=== PATIENT | male | born 1960 | race Caucasian/White ===

== ENCOUNTER 2016-12-14 14:39 | Inpatient (IN) | payer MEDICAID ==
[2016-12-14] VITALS (7 sets, daily range): BP systolic 126–197; BP diastolic 79–107
[~2016-12-14] VITALS: Ht 177.8 cm; Wt 117.5 kg
[~2016-12-14 14:39] MED LIST: CYCL10TA9 PO; HYDR-3812 PO
[2016-12-14] MEDS ORDERED: NS IV 500 ML 500 ML IV ONE (14:41)
[2016-12-14] MEDS ORDERED: ASPIRIN 81 MG CHEW (CHILDREN'S ASA) PO ONE (14:45)
[2016-12-14 14:54] LABS: BASOPHILS % (AUTO) 0 % (0-10); EOSINOPHILS # (AUTO) 0.2 10^3/uL (0.0-0.3); EOSINOPHILS % (AUTO) 2 % (0-10); LYMPHOCYTES # (AUTO) 3.8 X 10^3 (1.0-4.0); LYMPHOCYTES % (AUTO) 31 % (12-44); MEAN CORPUSCULAR HEMOGLOBIN 32 PG (25-34); MEAN CORPUSCULAR HGB CONC 35 G/DL (32-36); MEAN CORPUSCULAR VOLUME 93 FL (80-99); MEAN PLATELET VOLUME 10.6 FL (7.4-10.4); MONOCYTES # (AUTO) 1.8 X 10^3 (0.0-1.0); MONOCYTES % (AUTO) 15 % (0-12); NEUTROPHILS # (AUTO) 6.4 X 10^3 (1.8-7.8); NEUTROPHILS % (AUTO) 53 % (42-75); PLATELET COUNT 265 10^3/uL (130-400); RED BLOOD COUNT 4.72 10^6/uL (4.35-5.85); RED CELL DISTRIBUTION WIDTH 14.6 % (10.0-14.5); WHITE BLOOD COUNT 12.1 10^3/uL (4.3-11.0)
[2016-12-14] MEDS ORDERED: GABA-486 (14:55)
[2016-12-14] MEDS ORDERED: MELO15TA39 (14:55)
[2016-12-14] MEDS ORDERED: HYDR100T27 (14:55)
[2016-12-14] MEDS ORDERED: CARV25TA (14:55)
[2016-12-14] MEDS ORDERED: AMLO10TA2 (14:55)
[2016-12-14] MEDS ORDERED: PRD20T PO ×2 (14:55→18:35)
[2016-12-14 15:04] LABS: INR 0.9 (0.8-1.4); PROTHROMBIN TIME PATIENT 12.1 SEC (12.2-14.7)
[2016-12-14 15:14] LABS: ALANINE AMINOTRANSFERASE 100 U/L (0-55); ALBUMIN 4.3 GM/DL (3.2-4.5); AMYLASE 53 U/L (25-125); ANION GAP 10 MMOL/L (5-14); ASPARTATE AMINO TRANSFERASE 51 U/L (5-34); BILIRUBIN,TOTAL 0.5 MG/DL (0.1-1.0); BLOOD UREA NITROGEN 20 MG/DL (7-18); BUN/CREATININE RATIO 13; CALCIUM 9.5 MG/DL (8.5-10.1); CARBON DIOXIDE 25 MMOL/L (21-32); CHLORIDE 102 MMOL/L (98-107); GFR ESTIMATED 48; GLUCOSE 115 MG/DL (70-105); LIPASE 52 U/L (8-78); MAGNESIUM 2.6 MG/DL (1.8-2.4); POTASSIUM 4.1 MMOL/L (3.6-5.0); SODIUM 137 MMOL/L (135-145); TOTAL PROTEIN 7.4 GM/DL (6.4-8.2)
--- NOTE | 2016-12-14 15:20 | Diagnostic Imaging Report ---
INDICATION: Lethargy. COMPARISON: None. FINDINGS: Single upright portable view of the chest is obtained. Heart size is normal. The pulmonary vessels appear unremarkable. There are some surgical clips projecting over the right hilum. There is no pneumothorax, pleural fluid, or evidence of failure. There is some minimal atelectasis or scarring in the left midlung. The lungs are otherwise clear. IMPRESSION: No radiographic evidence of an acute cardiopulmonary abnormality. Dictated by: Dictated on workstation # [id number]
[2016-12-14 15:25] LABS: MYOGLOBIN SERUM 44.3 NG/ML (10.0-92.0)
--- NOTE | 2016-12-14 15:37 | ED Cardiac General ---
History of Present Illness General Chief Complaint: Cardiac/General Problems Stated Complaint: LATHARGIC Nursing Triage Note: Pt to ED from rehab. Pt was doing workout and became increasingly lethargic and reports he felt very dizzy. Pt has hx 2 strokes. Source: patient Exam Limitations: no limitations History of Present Illness Time seen by provider: 14:38 Initial Comments Here from the physical therapy department with increasingly weak and dizzy and fast heart rate. Patient is in outpatient rehabilitation for stroke previously. Comes today with heart rate in the one teens to 140s and atrial fibrillation. He reports that his had atrial fibrillation. He is not on anticoagulation. Has vague chest discomfort but denies pain. Reports dizziness and weakness but no vomiting or diaphoresis. Timing/Duration: 1 hour Severity: moderate Location: central Activities at Onset: activity Modifying Factors: worse with exercise, improves with oxygen, improves with rest NTG SL EASTERN PHILOSOPHY PROFESSOR: No ASA po EASTERN PHILOSOPHY PROFESSOR: No Associated Systoms: Chest Pain, No Diaphoresis, No Fever/Chills, No Nausea/ Vomiting, Shortness of Air, Weakness Allergies and Home Medications Allergies Coded Allergies: No Known Drug Allergies (Unverified , 02/25/15) Home Medications Amlodipine Besylate Unknown Strength Tablet, Unknown Dose, #90 (Reported) Carvedilol Unknown Strength Tablet, Unknown Dose, #360 (Reported) Gabapentin Unknown Strength Capsule, Unknown Dose, #180 (Reported) Hydralazine HCl Unknown Strength Tablet, Unknown Dose, #270 (Reported) Meloxicam Unknown Strength Tablet, Unknown Dose, #14 (Reported) Prednisone 20 Mg Tab, 20 MG PO BID, #14 (Reported) Review of Systems Constitutional: see HPI, No chills, No fever EENTM: No Symptoms Reported Respiratory: See HPI, Denies Cough, Denies Orthopnea Cardiovascular: See HPI, Chest Pain, Irregular Heart Rate, Lightheadedness, Palpitations Gastrointestinal: No Symptoms Reported Genitourinary: No Symptoms Reported Musculoskeletal: no symptoms reported Skin: no symptoms reported Psychiatric/Neurological: See HPI, Denies Headache, Weakness Endocrine: No Symptoms Reported All Other Systems Reviewed Negative Unless Noted: Yes Past Bkgenct-Ozddtl-Cviugl Hx Patient Social History Alcohol Use: Rarely Uses Recreational Drug Use: No Smoking Status: Never a Smoker Recent Foreign Travel: No Contact w/Someone Who Travel: No Recent Infectious Disease Expo: No Recent Hopitalizations: No Seasonal Allergies Seasonal Allergies: No Surgeries HX Surgeries: Yes Surgeries: Orthopedic Respiratory Hx Respiratory Disorders: No Cardiovascular Hx Cardiac Disorders: Yes Cardiac Disorders: Hypertension Neurological Hx Neurological Disorders: Yes Neurological Disorders: Stroke Genitourinary Hx Genitourinary Disorders: No Gastrointestinal Hx Gastrointestinal Disorders: No Musculoskeletal Hx Musculoskeletal Disorders: Yes Musculoskeletal Disorders: Chronic Back Pain Endocrine Hx Endocrine Disorders: No HEENT HX ENT Disorders: No Cancer Hx Cancer: No Psychosocial Hx Psychiatric Problems: No Integumentary HX Skin/Integumentary Disorder: No Blood Transfusions Hx Blood Disorders: No Adverse Reaction to a Blood Tr: No Reviewed Nursing Assessment Reviewed/Agree w Nursing PMH: Yes Family Medical History Significant Family History: No Pertinent Family Hx Physical Exam Vital Signs Vital Sign - Last 12Hours 12/14/16 14:44 Temp 98.3 Pulse 120 Resp 18 B/P (MAP) 150/104 Pulse Ox 95 O2 Delivery Room Air Capillary Refill : Less Than 3 Seconds General Appearance: No Apparent Distress, WD/WN HEENT: PERRL/EOMI, Pharynx Normal Neck: Non Tender, Supple Respiratory: Lungs Clear, No Respiratory Distress Cardiovascular: Irregularly Irregular, Tachycardia Gastrointestinal: Non Tender, Soft Extremity: Normal Range of Motion, Non Tender Neurologic/Psychiatric: Alert, Oriented x3 Skin: Normal Color, Warm/Dry Progress/Results/Core Measures Results/Orders Lab Results Laboratory Tests Test 12/14/16 14:42 Range/Units White Blood Count 12.1 H 4.3-11.0 10^3/uL Red Blood Count 4.72 4.35-5.85 10^6/uL Hemoglobin 15.3 13.3-17.7 G/DL Hematocrit 44 40-54 % Mean Corpuscular Volume 93 80-99 FL Mean Corpuscular Hemoglobin 32 25-34 PG Mean Corpuscular Hemoglobin Concent 35 32-36 G/DL Red Cell Distribution Width 14.6 H 10.0-14.5 % Platelet Count 265 130-400 10^3/uL Mean Platelet Volume 10.6 H 7.4-10.4 FL Neutrophils (%) (Auto) 53 42-75 % Lymphocytes (%) (Auto) 31 12-44 % Monocytes (%) (Auto) 15 H 0-12 % Eosinophils (%) (Auto) 2 0-10 % Basophils (%) (Auto) 0 0-10 % Neutrophils # (Auto) 6.4 1.8-7.8 X 10^3 Lymphocytes # (Auto) 3.8 1.0-4.0 X 10^3 Monocytes # (Auto) 1.8 H 0.0-1.0 X 10^3 Eosinophils # (Auto) 0.2 0.0-0.3 10^3/uL Basophils # (Auto) 0.0 0.0-0.1 10^3/uL Prothrombin Time 12.1 L 12.2-14.7 SEC INR Comment 0.9 0.8-1.4 Activated Partial Thromboplast Time 30 24-35 SEC Sodium Level 137 135-145 MMOL/L Potassium Level 4.1 3.6-5.0 MMOL/L Chloride Level 102 98-107 MMOL/L Carbon Dioxide Level 25 21-32 MMOL/L Anion Gap 10 5-14 MMOL/L Blood Urea Nitrogen 20 H 7-18 MG/DL Creatinine 1.50 H 0.60-1.30 MG/DL Estimat Glomerular Filtration Rate 48 BUN/Creatinine Ratio 13 Glucose Level 115 H 70-105 MG/DL Calcium Level 9.5 8.5-10.1 MG/DL Magnesium Level 2.6 H 1.8-2.4 MG/DL Total Bilirubin 0.5 0.1-1.0 MG/DL Aspartate Amino Transf (AST/SGOT) 51 H 5-34 U/L Alanine Aminotransferase (ALT/SGPT) 100 H 0-55 U/L Alkaline Phosphatase 35 L 40-136 U/L Myoglobin 44.3 10.0-92.0 NG/ML Troponin I < 0.30 <0.30 NG/ML Total Protein 7.4 6.4-8.2 GM/DL Albumin 4.3 3.2-4.5 GM/DL Amylase Level 53 25-125 U/L Lipase 52 8-78 U/L My Orders Orders - GIULIA POST MD Cbc With Automated Diff (12/14/16 14:41) Magnesium (12/14/16 14:41) Chest 1 View, Ap/Pa Only (12/14/16 14:41) Ekg Tracing (12/14/16 14:41) Cardiac Profile 1 (12/14/16 14:41) Comprehensive Metabolic Panel (12/14/16 14:41) Myoglobin Serum (12/14/16 14:41) Protime With Inr (12/14/16 14:41) Partial Thromboplastin Time (12/14/16 14:41) O2 (12/14/16 14:41) Monitor-Rhythm Ecg Trace Only (12/14/16 14:41) Lipid Panel (12/15/16 06:00) Aspirin Chewable Tablet (Baby Aspirin Ch (12/14/16 14:45) Saline Lock/Iv-Start (12/14/16 14:41) Lipase (12/14/16 14:41) Amylase (12/14/16 14:41) Ns Iv 500 Ml (Sodium Chloride 0.9%) (12/14/16 14:41) Enoxaparin Injection (Lovenox Injection) (12/14/16 15:45) Heparin Drip 21077 Unit/500ml (Heparin (12/14/16 15:49) Heparin (Bolus Per Protocol) (Heparin (B (12/14/16 15:49) Sodium Chloride (Ad... W/Diltiazem Drip (12/14/16 16:00) Diltiazem Injection (Cardizem Injection) (12/14/16 16:00) Medications Given in ED Current Medications Medications Dose Ordered Sig/Mauro Route Start Time Stop Time Status Last Admin Dose Admin Aspirin 324 mg ONCE ONCE PO 12/14/16 14:45 12/14/16 14:46 DC 12/14/16 15:07 324 MG Sodium Chloride 500 ml @ 0 mls/hr Q0M ONCE IV 12/14/16 14:41 12/14/16 14:42 DC 12/14/16 15:08 999 MLS/HR Vital Signs/I&O Vital Sign - Last 12Hours 12/14/16 12/14/16 14:44 14:48 Temp 98.3 Pulse 120 88 111 140 Resp 18 B/P (MAP) 150/104 Pulse Ox 95 O2 Delivery Room Air Blood Pressure Mean: 119 Progress Note : Progress Note Seen and evaluated. IV, labs, EKG and chest x-ray. Normal saline 1 L bolus. We will try fluids before Cardizem to see if that will help out heart rate. 1550: Heart rate not improved. Cardizem drip and heparin bolus initiated. To be admitted. Case discussed with Dr. Pedraza who agrees to admission. Initially we had considered Lovenox for anticoagulation the patient's creatinine is 1.5. Dr. Onofre. For admission on-call for [facility]. Case discussed with Dr. Onofre and she accepts patient for admission, inpatient status. Patient agrees to plan. ECG Initial ECG Impression Date: Dec 14, 2016 Initial ECG Impression Time: 14:42 Initial ECG Rate: 126 Initial ECG Rhythm: A Fib/Flutter Initial ECG Impression: Atrial Fibrillation w/RVR Comment Atrial fibrillation with rapid ventricular response. No evidence of ST elevation [place]. No previous available for comparison. Normal axis. Interpreted by me. Diagnostic Imaging Diagonstic Imaging: Xray Plain Films/CT/US/NM/MRI: chest Comments NAME: JAYSHREE GORDON MED REC#: [id number] PT STATUS: REG ER : 1960 PHYSICIAN: GIULIA POST MD ADMIT DATE: 12/14/16/ER Signed Date of Exam: 12/14/16 CHEST 1 VIEW, AP/PA ONLY INDICATION: Lethargy. COMPARISON: None. FINDINGS: Single upright portable view of the chest is obtained. Heart size is normal. The pulmonary vessels appear unremarkable. There are some surgical clips projecting over the right hilum. There is no pneumothorax, pleural fluid, or evidence of failure. There is some minimal atelectasis or scarring in the left midlung. The lungs are otherwise clear. IMPRESSION: No radiographic evidence of an acute cardiopulmonary abnormality. Dictated by: Dictated on workstation # [id number] Dict: 12/14/16 1517 Trans: 12/14/16 1528 Interpreted by: GWENDOLYN KRAFT DO Electronically signed by: GWENDOLYN KRAFT DO 12/14/16 1528 Departure Communication Time/Spoke to Admitting Phy: 15:50 Time/Spoke to Consulting Physi: 15:30 Impression Impression: Primary Impression: Atrial fibrillation with rapid ventricular response Additional Impression: Chest discomfort Disposition: ADMITTED INPATIENT Condition: Stable Decision to Admit Reason: Admit from ER (General) Decision to Admit/Date: Dec 14, 2016 Time/Decision to Admit Time: 15:50 Departure-Patient Inst. Referrals: MANUEL STARK DO (PCP) Primary Care Physician JOSHUA LINO (Family) Primary Care Physician GIULIA POST MD Dec 14, 2016 15:37
[2016-12-14] MEDS ORDERED: ENOXAPARIN 100 MG/1 ML (LOVENOX) SYR SC ONE (15:45)
[2016-12-14] MEDS ORDERED: HEParin 1000 UNIT/ML (10ML VIAL) FOR BOLUS IV ONE (15:49)
[2016-12-14] MEDS ORDERED: HEParin DRIP 25000 UNIT/500ML 500 ML IV ONE (15:49)
[2016-12-14] MEDS ORDERED: DILTIAZEM 25 MG/5 ML INJ (CARDIZEM) VIAL IVP ONE (16:00)
[2016-12-14] MEDS ORDERED: DILTIAZEM DRIP 100 MG in SODIUM CHLORIDE (ADD-VANTAGE) 100 ML IV SCH (16:00)
[2016-12-14] MEDS ORDERED: NITROGLYCERIN SUBLINGUAL 0.4 MG TAB (NITROSTAT) SL PRN (17:30)
[2016-12-14] MEDS ORDERED: CATHETER FLUSH 10 ML SYR IV PRN (17:30)
[2016-12-14] MEDS ORDERED: morphine INJ 4 MG/ML 1 ML (VIAL/SYRINGE) IV PRN (17:30)
[2016-12-14] MEDS: DILTIAZEM DRIP 100 MG/NS 100 ML IV SCH ×2 (17:31)
[2016-12-14] MEDS ORDERED: HEParin DRIP 25000 UNIT/500ML 500 ML IV SCH (17:33)
[2016-12-14] MEDS ORDERED: HEParin 1000 UNIT/ML (10ML VIAL) FOR BOLUS IV PRN (17:45)
[2016-12-14] MEDS: NS IV 1000 ML 1,000 ML IV SCH (17:50)
[2016-12-14] MEDS ORDERED: CARV25TA PO (18:35)
[2016-12-14] MEDS ORDERED: AMLO10TA2 PO (18:35)
[2016-12-14] MEDS ORDERED: ASPI-983 PO (18:35)
[2016-12-14] MEDS ORDERED: MELO15TA39 PO (18:35)
[2016-12-14] MEDS ORDERED: GABA-486 PO (18:35)
[2016-12-14] MEDS ORDERED: BACL10TA PO (18:35)
[2016-12-14] MEDS ORDERED: HYDR100T27 PO (18:35)
[2016-12-14] MEDS ORDERED: MELOXICAM 7.5 MG (MOBIC) TABLET PO SCH (21:27)
[2016-12-14] MEDS: BACLOFEN 10 MG (LIORESAL) TAB PO PRN (21:41)
[2016-12-15] VITALS (16 sets, daily range): BP systolic 122–180; BP diastolic 84–116
[2016-12-15] MEDS ORDERED: HYDROcodone/APAP 5 MG/325 MG (LORTAB) TAB ONE (00:38)
[2016-12-15] MEDS ORDERED: LABETALOL HCL 20 MG/4 ML VIAL ONE (00:38)
[2016-12-15] MEDS ORDERED: LABETALOL HCL 20 MG/4 ML VIAL IV PRN (01:00)
[2016-12-15] MEDS ORDERED: HYDROcodone/APAP 5 MG/325 MG (LORTAB) TAB PO PRN (01:00)
[2016-12-15] MEDS: DILTIAZEM DRIP 100 MG/NS 100 ML IV SCH ×4 (02:21→10:39)
[2016-12-15] MEDS ORDERED: morphine INJ 4 MG/ML 1 ML (VIAL/SYRINGE) IV PRN (02:45)
[2016-12-15 02:59] LABS: BASOPHILS % (AUTO) 0 % (0-10); EOSINOPHILS # (AUTO) 0.3 10^3/uL (0.0-0.3); EOSINOPHILS % (AUTO) 2 % (0-10); LYMPHOCYTES # (AUTO) 3.5 X 10^3 (1.0-4.0); LYMPHOCYTES % (AUTO) 24 % (12-44); MEAN CORPUSCULAR HEMOGLOBIN 33 PG (25-34); MEAN CORPUSCULAR HGB CONC 35 G/DL (32-36); MEAN CORPUSCULAR VOLUME 92 FL (80-99); MEAN PLATELET VOLUME 10.6 FL (7.4-10.4); MONOCYTES # (AUTO) 1.9 X 10^3 (0.0-1.0); MONOCYTES % (AUTO) 13 % (0-12); NEUTROPHILS # (AUTO) 9.1 X 10^3 (1.8-7.8); NEUTROPHILS % (AUTO) 62 % (42-75); PLATELET COUNT 263 10^3/uL (130-400); RED BLOOD COUNT 5.02 10^6/uL (4.35-5.85); RED CELL DISTRIBUTION WIDTH 14.7 % (10.0-14.5); WHITE BLOOD COUNT 14.9 10^3/uL (4.3-11.0)
[2016-12-15 03:23] LABS: ALANINE AMINOTRANSFERASE 106 U/L (0-55); ALBUMIN 4.3 GM/DL (3.2-4.5); ANION GAP 14 MMOL/L (5-14); ASPARTATE AMINO TRANSFERASE 47 U/L (5-34); BILIRUBIN,TOTAL 0.6 MG/DL (0.1-1.0); BLOOD UREA NITROGEN 16 MG/DL (7-18); BUN/CREATININE RATIO 15; CALCIUM 9.3 MG/DL (8.5-10.1); CARBON DIOXIDE 19 MMOL/L (21-32); CHLORIDE 106 MMOL/L (98-107); CHOLESTEROL 203 MG/DL (< 200); DIRECT LDL 129 MG/DL (1-129); GFR ESTIMATED > 60; GLUCOSE 104 MG/DL (70-105); MAGNESIUM 2.3 MG/DL (1.8-2.4); POTASSIUM 3.8 MMOL/L (3.6-5.0); SODIUM 139 MMOL/L (135-145); TOTAL PROTEIN 7.5 GM/DL (6.4-8.2); TRIGLYCERIDES 295 MG/DL (<150); VLDL CHOLESTEROL 59 MG/DL (5-40)
[2016-12-15 04:08] LABS: BAND NEUTROPHILS 0 %; BASOPHILS % (MANUAL) 0 %; EOSINOPHILS % (MANUAL) 1 %; LYMPHOCYTES % (MANUAL) 16 %; NEUTROPHILS % (MANUAL) 66 %; REACTIVE LYMPHOCYTES 6 %
[2016-12-15] MEDS: NS IV 1000 ML 1,000 ML IV SCH ×2 (05:07→13:39)
[2016-12-15] MEDS ORDERED: POTASSIUM CL 10MEQ/50ML IVPB 50 ML IV SCH (06:00)
[2016-12-15] MEDS ORDERED: MAGNESIUM 1 GM/100 ML IVPB 100 ML IV SCH (06:00)
[2016-12-15] MEDS ORDERED: KCL 20 MEQ TAB (K-DUR) PO SCH (06:00)
--- NOTE | 2016-12-15 07:38 | Pulmonary Consultation ---
History of Present Illness History of Present Illness Date of Consultation 12/15/16 07:29 Time Seen by Provider: 07:29 Date of Admission History of Present Illness 56yo with hx of CVA presented to ED from PT department secondary to worsening weakness, CP, dizziness, and palpitations. IN ED she was found to have Afib RVR with HR 140's. PT is currently on a cardizem gtt in ICU and doing better. Allergies and Home Medications Allergies Coded Allergies: No Known Drug Allergies (Unverified , 02/25/15) Home Medications Amlodipine Besylate 10 Mg Tablet, 10 MG PO DAILY, (Reported) Aspirin 81 Mg Tablet.dr, 81 MG PO DAILY, (Reported) Baclofen 10 Mg Tablet, 20 MG PO TID PRN for MUSCLE SPASMS, (Reported) Carvedilol 25 Mg Tablet, 50 MG PO BID, (Reported) Gabapentin 100 Mg Capsule, 200 MG PO TID, (Reported) Hydralazine HCl 100 Mg Tablet, 100 MG PO TID PRN for HYPERTENSION, (Reported) Meloxicam 15 Mg Tablet, 15 MG PO HS, (Reported) Prednisone 20 Mg Tab, 20 MG PO BIDAC, (Reported) WITH BREAKFAST AND LUNCH Past Zpsbufk-Amvaoe-Klsfrn Hx Patient Social History Alcohol Use: Occasionally Uses Recreational Drug Use: No Smoking Status: Never a Smoker Recent Foreign Travel: No Contact w/Someone Who Travel: No Recent Infectious Disease Expo: No Recent Hopitalizations: No Physical Abuse Screen: No Sexual Abuse: No Seasonal Allergies Seasonal Allergies: No Surgeries HX Surgeries: Yes Surgeries: Orthopedic Respiratory Hx Respiratory Disorders: No Cardiovascular Hx Cardiac Disorders: Yes Cardiac Disorders: Hypertension Neurological Hx Neurological Disorders: Yes Neurological Disorders: Stroke Genitourinary Hx Genitourinary Disorders: No Gastrointestinal Hx Gastrointestinal Disorders: No Musculoskeletal Hx Musculoskeletal Disorders: Yes Musculoskeletal Disorders: Chronic Back Pain Endocrine Hx Endocrine Disorders: No HEENT HX ENT Disorders: No Cancer Hx Cancer: No Psychosocial Hx Psychiatric Problems: No Integumentary HX Skin/Integumentary Disorder: No Blood Transfusions Hx Blood Disorders: No Adverse Reaction to a Blood Tr: No Reviewed Nursing Assessment Reviewed/Agree w Nursing PMH: Yes Family Medical History Significant Family History: No Pertinent Family Hx Review of Systems Time Seen by Provider: 07:49 Constitutional: Malaise, Sweats, Weakness, No: Chills, Fever, Other Eyes: No: Conjunctivae inflammation, Eyelid inflammation, Other, Pain, Redness , Vision change ENT: No: Ear discharge, Ear pain, Mouth pain, Mouth swelling, Nose congestion, Nose discharge, Nose pain, Other, Throat pain, Throat swelling Respiratory: Cough, Dry, SOB with excertion, Shortness of breath Cardiovascular: Chest Pain, Lt Headedness, Palpitations, No: Orthopnea, Paroxysmal Noc. Dyspnea Gastrointestinal: No: Abdominal Pain, Constipation, Diarrhea, Hematochezia, Melena, Nausea, Other, Vomiting Neurological: Weakness Exam Exam Vital Signs Date Time Temp Pulse Resp B/P (MAP) Pulse Ox O2 Delivery O2 Flow Rate FiO2 12/15/16 06:00 64 18 144/116 97 Room Air 12/15/16 05:08 97.1 Room Air 12/15/16 05:00 75 8 140/101 98 Room Air 12/15/16 04:00 66 12 138/116 95 Room Air 12/15/16 04:00 97 Room Air 12/15/16 03:00 68 10 139/105 96 Room Air 12/15/16 02:21 88 12/15/16 02:00 84 10 157/106 96 Room Air 12/15/16 01:00 66 12/15/16 01:00 63 13 134/107 97 Room Air 12/15/16 00:00 97 Room Air 12/15/16 00:00 96.7 Room Air 12/15/16 00:00 89 19 142/107 96 Room Air 12/14/16 23:00 73 9 197/107 95 Room Air 12/14/16 22:00 62 14 134/102 97 Room Air 12/14/16 21:36 97 Room Air 12/14/16 21:00 70 14 152/100 95 Room Air 12/14/16 20:28 97 Room Air 12/14/16 20:00 96.0 52 10 134/95 97 Room Air 12/14/16 19:00 68 12/14/16 19:00 68 16 133/103 Room Air 12/14/16 18:11 98 Room Air 12/14/16 18:00 68 14 126/79 96 Room Air 12/14/16 17:10 96.9 73 16 140/103 98 Room Air 12/14/16 16:52 98.3 80 18 95 Room Air 12/14/16 16:23 76 127/84 12/14/16 14:50 95 Room Air 12/14/16 14:48 88 111 140 12/14/16 14:44 98.3 120 18 150/104 95 Room Air I & O 12/15/16 07:00 Intake Total 2200 ml Output Total 2750 ml Balance -550 ml General Appearance: No Apparent Distress, WD/WN HEENT: PERRL/EOMI, Pharynx Normal Neck: Non Tender, Supple Respiratory: Lungs Clear, No Respiratory Distress Cardiovascular: Irregularly Irregular, Tachycardia Capillary Refill: Less Than 3 Seconds Gastrointestinal: non tender, soft, no organomegaly, no pulsatile mass Extremity: Normal Range of Motion, Non Tender Neurologic/Psychiatric: Alert, Oriented x3 Skin: Normal Color, Warm/Dry Results Lab Laboratory Tests 12/14/16 14:42 12/15/16 02:50 Assessment/Plan Assessment/Plan Afib RVR on cardizem gtt -Cardiology following -Troponins are negative Anxiety/ diaphoresis -monitor -Check UDS Leukocytosis -check cultures and UA -Start Zosyn Elevated liver enzymes -hep panel -D/C Lortab -monitor -check RUQ US Mild metabolic acidosis -check LA and russo cultures Chronic leg pain/sciatica -Start Motrin PRN CXR and labs reviewed 255 Clinical Quality Measures AMI/AHF: ASA po Prior to arrival: No DVT/VTE Risk/Contraindication: Risk Factor Score Per Nursin RFS Level Per Nursing on Admit: 3=High HONORIO ALBERT DO Dec 15, 2016 07:38
[2016-12-15] MEDS ORDERED: PIPERACILLIN SODIUM/TAZOBACTAM 4.5 GM in NS (IVPB) 100 ML IV SCH ×2 (08:00→14:00)
[2016-12-15] MEDS: IBUPROFEN TABLET 200 MG TAB PO PRN ×2 (08:20→14:51)
[2016-12-15] MEDS: GABAPENTIN 100 MG (NEURONTIN) CAP PO SCH ×2 (08:21→13:21)
[2016-12-15] MEDS ORDERED: ASPIRIN E.C. 325 MG (ECOTRIN) TABLET PO SCH (09:00)
[2016-12-15] MEDS ORDERED: hydrALAZINE (APRESOLINE) 25 MG TAB PO PRN (09:15)
[2016-12-15] MEDS ORDERED: amLODIPine 10 MG (NORVASC) TAB ONE (09:15)
--- NOTE | 2016-12-15 09:30 | Diagnostic Imaging Report ---
EXAMINATION: Ultrasound of the liver. INDICATION: Elevated liver enzymes. FINDINGS: The pancreas is largely obscured. The liver is hyperechoic and dense suggestive of fatty infiltration. It is 19 CM craniocaudally, slightly enlarged. There is no gallstones or evidence of cholecystitis. The CBD is 7 mm in caliber, slightly dilated. The right kidney is 10.9 CM in length with no hydronephrosis or focal lesion. No fluid collection is noted. Sonographic Paz sign is negative. IMPRESSION: Slightly enlarged liver with liver echogenicity suggestive of underlying fatty infiltration or hepatitis. Dictated by: Dictated on workstation # [id number]
[2016-12-15] MEDS ORDERED: CARVEDILOL 12.5 MG (COREG) TABLET ONE (09:48)
[2016-12-15] MEDS ORDERED: APIXABAN 5 MG (ELIQUIS) TABLET PO SCH (10:00)
--- NOTE | 2016-12-15 10:49 | History & Physical-Hospitalist ---
HPI History of Present Illness: HPI/Chief Complaint CC: Palpitations with new onset AF w/RVR with pneumonia HPI: This is a 56-year-old white male clinic patient of [facility] that presents to the emergency room with palpitations of weakness following physical therapy. He was found to have new onset atrial fibrillation with rapid ventricular response and infiltrate on chest x-ray. He denies any pain currently and is a nonsmoker. He is currently on Cardizem drip anticoagulation and cardiology has been consulted. Source: patient Exam Limitations: no limitations Date Seen 12/15/16 Time Seen by Provider: 09:45 Attending Physician Estella Onofre DO PCP Kelsey Parmar DO Referring Physician Date of Admission Dec 14, 2016 at 15:50 Home Medications & Allergies Home Medications Reviewed patient Home Medication Reconciliation Form Allergies Allergies Coded Allergies No Known Drug Allergies (Xcfqkkolpw15/5/15) Past Ffvapoz-Mozuxv-Shzbol Hx Patient Social History Marrital Status: single Employed/Student: unemployed Alcohol Use: Occasionally Uses Recreational Drug Use: No Smoking Status: Never a Smoker Physical Abuse Screen: No Sexual Abuse: No Recent Foreign Travel: No Contact w/other who traveled: No Recent Hopitalizations: No Recent Infectious Disease Expo: No Seasonal Allergies Seasonal Allergies: No Surgeries HX Surgeries: Yes Surgeries: Orthopedic Respiratory Hx Respiratory Disorders: No Cardiovascular Hx Cardiovascular Disorders: Yes Cardiac Disorders: Hypertension Neurological Hx Neurological Disorders: Yes Neurological Disorders: Stroke Genitourinary Hx Genitourinary Disorders: No Gastrointestinal Hx Gastrointestinal Disorders: No Musculoskeletal Hx Musculoskeletal Disorders: Yes Musculoskeletal Disorders: Chronic Back Pain Endocrine Hx Endocrine Disorders: No HEENT HX ENT Disorders: No Cancer Hx Cancer: No Psychosocial Hx Psychiatric Problems: No Integumentary HX Skin/Integumentary Disorder: No Blood Transfusions Hx Blood Disorders: No Adverse Reaction to a Blood Tr: No Reviewed Nursing Assessment Reviewed/Agree w Nursing PMH: Yes Family Medical History Significant Family History: No Pertinent Family Hx Review of Systems Constitutional: see HPI EENTM: no symptoms reported Respiratory: no symptoms reported Cardiovascular: palpitations Gastrointestinal: no symptoms reported Genitourinary: no symptoms reported Musculoskeletal: no symptoms reported Skin: no symptoms reported Psychiatric/Neurological: No Symptoms Reported All Other Systems Reviewed Negative Unless Noted: Yes Physical Exam Physical Exam Vital Signs Vital Sign - Last 12Hours 12/14/16 14:44 Temp 98.3 Pulse 120 Resp 18 B/P (MAP) 150/104 Pulse Ox 95 O2 Delivery Room Air Capillary Refill : Less Than 3 Seconds General Appearance: No Apparent Distress, WD/WN, Chronically ill, Obese Eyes: Bilateral Eye Normal Inspection, Bilateral Eye PERRL HEENT: PERRL/EOMI, Normal ENT Inspection, Pharynx Normal Neck: Full Range of Motion, Normal Inspection, Non Tender, Supple, Carotid Bruit Respiratory: Chest Non Tender, Lungs Clear, Normal Breath Sounds, No Accessory Muscle Use, No Respiratory Distress Cardiovascular: No Edema, No Gallop, No JVD, No Murmur, Normal Peripheral Pulses, Irregularly Irregular Gastrointestinal: Normal Bowel Sounds, No Organomegaly, No Pulsatile Mass, Non Tender, Soft Back: Normal Inspection, No CVA Tenderness, No Vertebral Tenderness Extremity: Normal Capillary Refill, Normal Inspection, Normal Range of Motion, Non Tender, No Calf Tenderness, No Pedal Edema Neurologic/Psychiatric: Alert, Oriented x3, No Motor/Sensory Deficits, Normal Mood/Affect Skin: Normal Color, Warm/Dry Lymphatic: No Adenopathy Results Results/Procedures Lab Laboratory Tests 12/14/16 14:42 12/15/16 02:50 Assessment/Plan Admission Diagnosis Assessment: New onset atrial fibrillation with rapid ventricular response Pneumonia on chest x-ray placed on protocol Hypertension Stroke Assessment and Plan Plan: Cardiology consultation appreciated Kamini knutson Cardiac workup Reconcile all home meds Clinical Quality Measures AMI/AHF: ASA po Prior to arrival: No DVT/VTE Risk/Contraindication: Risk Factor Score Per Nursin RFS Level Per Nursing on Admit: 3=High ESTELLA ONOFRE DO Dec 15, 2016 10:49
[2016-12-15 11:21] LABS: BILIRUBIN,URINE NEGATIVE (NEGATIVE); KETONES,URINE NEGATIVE (NEGATIVE); LEUKOCYTE ESTERASE ,URINE NEGATIVE (NEGATIVE); NITRITE,URINE NEGATIVE (NEGATIVE); PH,URINE 7 (5-9); PROTEIN,URINE 2+ (NEGATIVE); UROBILINOGEN,URINE NORMAL (NORMAL)
--- NOTE | 2016-12-15 11:36 | Diagnostic Imaging Report ---
INDICATION: Cardiac dysrhythmia Portable upright view of the chest is obtained with comparison made to study of 12/14/2016. Overall heart size is within normal limits. Pulmonary vascularity is at the upper limits of normal. There is no evidence of pneumothorax or consolidation. Linear density left midlung may be due to atelectasis or scarring. Rectangular formation of what appear to be lu now project to the left of midline in the mid chest. This may be on the patient's surface. IMPRESSION: Pulmonary vascularity is at the upper limits of normal with linear atelectasis and/or scarring in the left midlung. Dictated by: Dictated on workstation # [id number]
--- NOTE | 2016-12-15 13:10 | Consultation-Cardiology ---
HPI-Cardiology Cardiology Consultation: Date of Consultation 12/15/16 Date of Admission Attending Physician Estella Onofre DO Admitting Physician Kelsey Parmar DO Consulting Physician Edwin PEDRAZA MD HPI: Time Seen by Provider: 09:30 Chief Complaint: Palpitations This is a 56-year-old gentleman who has previous history of stroke. He presents with episode of dizziness and was found to be in atrial fibrillation with rapid ventricular rate. He is not on anticoagulation. The patient denies any significant chest pain. He denies any significant orthopnea, PND. Patient has history of hypertension. Review of Systems-Cardiology Review of Systems Constitutional: No As described under HPI, No no symptoms reported, No chills, No fever, No lightheadedness, No malaise, No tiredness, No weight loss, No weight gain, No other Eyes: No As described under HPI, No no symptoms reported, No blindness, No blurred vision, No contact lenses, No drainage, No decreased acuity, No foreign body sensation, No glasses, No inflammation, No pain, No photophobia, No previous injury, No shadows, No tunnel vision, No other, No vision change Ears/Nose/Throat: No As described under HPI, No no symptoms reported, No chronic hearing loss, No epistaxis, No ear discharge, No ear pain, No loose teeth, No mouth pain, No mouth swelling, No nasal drainage, No nose pain, No recent hearing loss, No throat pain, No throat swelling, No ulcerations, No other Respiratory: No no symptoms reported, No As described under HPI, No cough, No orthopnea, No shortness of breath, No SOB with excertion, No SOB at rest, No stridor, No wheezing, No other Cardiovascular: irregular heart rate, palpitations Gastrointestinal: No no symptoms reported, No As described under HPI, No abdomen distended, No abdominal pain, No blood streaked bowels, No constipation , No diarrhea, No difficulty swallowing, No nausea, No poor appetite, No poor fluid intake, No rectal bleeding, No vomiting, No other, No nausea/vomiting/ diarrhea, No stool coloration changes Genitourinary: No no symptoms reported, No As described under HPI, No burning, No dysuria, No discharge, No frequency, No flank pain, No hematuria, No incontinence, No pain, No urgency, No other, No urine frequency changes, No urine coloration changes Musculoskeletal: No no symptoms reported, No As describe under HPI, No back pain, No gout, No joint pain, No joint swelling, No muscle pain, No muscle stiffness, No neck pain, No other Skin: No no symptoms reported, No As described under HPI, No change in color, No change in hair/nails, No dryness, No lesions, No lumps, No rash, No other, No skin related problems, No ulcerations, No rash on exposed areas, No ulcerations on exposed areas All Other Systems Reviewed Negative Unless Noted: Yes [id number] Hx Patient Social History Marrital Status: single Employed/Student: unemployed Alcohol Use: Occasionally Uses Recreational Drug Use: No Smoking Status: Never a Smoker Recent Foreign Travel: No Recent Infectious Disease Expo: No Physical Abuse Screen: No Sexual Abuse: No Past Medical History PMH As described under Assessment. Allergies and Home Medications Allergies Coded Allergies: No Known Drug Allergies (Unverified , 02/25/15) Home Medications Amlodipine Besylate 10 Mg Tablet, 10 MG PO DAILY, (Reported) Aspirin 81 Mg Tablet.dr, 81 MG PO DAILY, (Reported) Baclofen 10 Mg Tablet, 20 MG PO TID, (Reported) TAKES 2 (10 MG) TABLETS Carvedilol 25 Mg Tablet, 50 MG PO BID, (Reported) TAKES 2 (25 MG) TABLETS Gabapentin 100 Mg Capsule, 200 MG PO TID, (Reported) TAKES 2 (100 MG) CAPSULES Hydralazine HCl 100 Mg Tablet, 100 MG PO TID PRN for HYPERTENSION, (Reported) Meloxicam 15 Mg Tablet, 15 MG PO HS, (Reported) Prednisone 20 Mg Tab, 20 MG PO BIDAC, (Reported) WITH BREAKFAST AND LUNCH / FILLED 12/08/16 #14 FOR A 7 DAY THERAPY Physical Exam-Cardiology Physical Exam Vital Signs/I&O Vital Sign - Last 12Hours 12/15/16 12/15/16 12/15/16 12/15/16 02:00 02:21 03:00 04:00 Pulse 84 88 68 Resp 10 10 B/P (MAP) 157/106 139/105 Pulse Ox 96 96 97 O2 Delivery Room Air Room Air Room Air 12/15/16 12/15/16 12/15/16 12/15/16 04:00 05:00 05:08 06:00 Temp 97.1 Pulse 66 75 64 Resp 12 8 18 B/P (MAP) 138/116 140/101 144/116 Pulse Ox 95 98 97 O2 Delivery Room Air Room Air Room Air Room Air 12/15/16 12/15/16 12/15/16 12/15/16 07:00 08:00 08:00 10:39 Temp 98.2 Pulse 67 64 72 Resp 9 B/P (MAP) 180/90 Pulse Ox 97 97 O2 Delivery Room Air Room Air 12/15/16 12/15/16 11:20 12:00 Temp 97.6 O2 Delivery Room Air Intake and Output 12/15/16 00:00 Intake Total 1600 ml Output Total 1300 ml Balance 300 ml Capillary Refill : Less Than 3 Seconds Constitutional: No appears stated age, No AAO x 3, No apparent distress, No PERRL, No well-developed, No well-nourished, No other HEENT: No PERRL, No normal ENT inspection, No TMs normal, No pharynx normal, No scleral icterus (R), No scleral icterus (L), No pale conjunctivae (R), No pale conjunctivae (L), No photophobia, No TM abnormal (R), No TM abnormal (L), No pharyngeal erythema, No tonsillar exudate, No other, No discharge, No EOMI, No hearing is well preserved, No hard of hearing, No oral hygience is good, No ulceration, No xanthelasmas are seen Neck: No non-tender, No full range of motion, No supple, No normal inspection, No carotid bruit, No limited range of motion, No lymphadenopathy (R), No lymphadenopathy (L), No tender lateral, No tender midline, No thyromegaly, No other, No carotid pulses are 2 + bilaterally, No with good upstrokes Respiratory: No accessory muscle use, No respiratory distress, No chest tender , No chest expansion is symmetric, No chest is bilaterally symmetric, No lungs clear to percussion, No lungs clear to auscultation, No crackles, No rhonchi, No rales, No stridor, No wheezing, No pleural rub, No other Cardiovascular: irregularly irregular, S1 and S2 Gastrointestinal: No tender, No soft, No round, No distended, No pulsatile mass , No organomegaly, No guarding, No rebound, No tenderness, No hernia, No mass, No audible bowel sounds, No abnormal bowel sounds, No abdominal bruits, No spleenomegaly, No other Rectal: deferred Extremities: No normal range of motion, No non-tender, No normal inspection, No pedal edema, No calf tenderness, No normal capillary refill, No pelvis stable , No calf tenderness, No inflammation, No pedal edema, No slow capillary refill , No swelling, No other, No abrasion, No clubbing, No cyanosis, No ecchymosis, No laceration, No no lower extremity edema bilateral, No significant edema, No tenderness, No wound Neurologic/Psychiatric: No circular shear operator II-XII nml as tested, No no motor/sensory deficits, No alert, No normal mood/affect, No oriented x 3, No abnormal cerebellar tests, No abnormal circular shear operator II-XII, No abnormal gait, No aphasia, No EOM palsy, No facial droop, No motor weakness, No sensory deficit, No depressed affect, No disoriented x 3, No other, No grossly intact, No power is 5/5 both on sides Skin: No normal color, No warm/dry, No cyanosis, No cool, No diaphoresis, No damp, No ecchymosis, No jaundice, No mottled, No pallor, No rash, No tattoos/ piercings, No ulcerations, No rash on exposed areas, No ulcerations on exposed areas, No other Data Review Labs Laboratory Tests 12/14/16 14:42: White Blood Count 12.1H, Red Blood Count 4.72, Hemoglobin 15.3, Hematocrit 44, Mean Corpuscular Volume 93, Mean Corpuscular Hemoglobin 32, Mean Corpuscular Hemoglobin Concent 35, Red Cell Distribution Width 14.6H, Platelet Count 265, Mean Platelet Volume 10.6H, Neutrophils (%) (Auto) 53, Lymphocytes (%) (Auto) 31 , Monocytes (%) (Auto) 15H, Eosinophils (%) (Auto) 2, Basophils (%) (Auto) 0, Neutrophils # (Auto) 6.4, Lymphocytes # (Auto) 3.8, Monocytes # (Auto) 1.8H, Eosinophils # (Auto) 0.2, Basophils # (Auto) 0.0, Prothrombin Time 12.1L, INR Comment 0.9, Activated Partial Thromboplast Time 30, Sodium Level 137, Potassium Level 4.1, Chloride Level 102, Carbon Dioxide Level 25, Anion Gap 10, Blood Urea Nitrogen 20H, Creatinine 1.50H, Estimat Glomerular Filtration Rate 48 , BUN/Creatinine Ratio 13, Glucose Level 115H, Calcium Level 9.5, Magnesium Level 2.6H, Total Bilirubin 0.5, Aspartate Amino Transf (AST/SGOT) 51H, Alanine Aminotransferase (ALT/SGPT) 100H, Alkaline Phosphatase 35L, Myoglobin 44.3, Troponin I < 0.30, Total Protein 7.4, Albumin 4.3, Amylase Level 53, Lipase 52 12/14/16 20:36: Activated Partial Thromboplast Time 74H 12/14/16 22:38: Troponin I < 0.30 12/15/16 02:50: White Blood Count 14.9H, Red Blood Count 5.02, Hemoglobin 16.3, Hematocrit 46, Mean Corpuscular Volume 92, Mean Corpuscular Hemoglobin 33, Mean Corpuscular Hemoglobin Concent 35, Red Cell Distribution Width 14.7H, Platelet Count 263, Mean Platelet Volume 10.6H, Neutrophils (%) (Auto) 62, Lymphocytes (%) (Auto) 24 , Monocytes (%) (Auto) 13H, Eosinophils (%) (Auto) 2, Basophils (%) (Auto) 0, Neutrophils # (Auto) 9.1H, Lymphocytes # (Auto) 3.5, Monocytes # (Auto) 1.9H, Eosinophils # (Auto) 0.3, Basophils # (Auto) 0.0, Activated Partial Thromboplast Time 59H, Sodium Level 139, Potassium Level 3.8, Chloride Level 106 , Carbon Dioxide Level 19L, Anion Gap 14, Blood Urea Nitrogen 16, Creatinine 1.10, Estimat Glomerular Filtration Rate > 60, BUN/Creatinine Ratio 15, Glucose Level 104, Calcium Level 9.3, Magnesium Level 2.3, Total Bilirubin 0.6, Aspartate Amino Transf (AST/SGOT) 47H, Alanine Aminotransferase (ALT/SGPT) 106H , Alkaline Phosphatase 40, Total Protein 7.5, Albumin 4.3, Neutrophils % (Manual ) 66, Lymphocytes % (Manual) 16, Monocytes % (Manual) 11, Eosinophils % (Manual ) 1, Basophils % (Manual) 0, Band Neutrophils 0, Reactive Lymphocytes 6, Blood Morphology Comment NORMAL, Phosphorus Level 3.0, Triglycerides Level 295H, Cholesterol Level 203H, LDL Cholesterol Direct 129, VLDL Cholesterol 59H, HDL Cholesterol 36L 12/15/16 08:32: Activated Partial Thromboplast Time 64H, Lactic Acid Level 1.08 12/15/16 09:00: Urine Color YELLOW, Urine Clarity SLIGHTLY CLOUDY, Urine pH 7, Urine Specific [place] 1.010L, Urine Protein 2+H, Urine Glucose (UA) NEGATIVE, Urine Ketones NEGATIVE, Urine Nitrite NEGATIVE, Urine Bilirubin NEGATIVE, Urine Urobilinogen NORMAL, Urine Leukocyte Esterase NEGATIVE, Urine RBC (Auto) NEGATIVE, Urine RBC NONE, Urine WBC NONE, Urine Crystals NONE, Urine Bacteria NEGATIVE, Urine Casts NONE, Urine Mucus NEGATIVE, Urine Culture Indicated NO, Urine Opiates Screen POSITIVEH, Urine Oxycodone Screen NEGATIVE, Urine Methadone Screen NEGATIVE, Urine Propoxyphene Screen NEGATIVE, Urine Barbiturates Screen NEGATIVE, Ur Tricyclic Antidepressants Screen NEGATIVE, Urine Phencyclidine Screen NEGATIVE, Urine Amphetamines Screen NEGATIVE, Urine Methamphetamines Screen NEGATIVE, Urine Benzodiazepines Screen NEGATIVE, Urine Cocaine Screen NEGATIVE, Urine Cannabinoids Screen NEGATIVE ECG Impression ECG Initial ECG Impression: Atrial Fibrillation, Atrial Fibrillation w/RVR A/P-Cardiology Assessment/Admission Diagnosis Atrial fibrillation, previous stroke. Hypertension Plan I discussed at length with the patient about pathophysiology of atrial fibrillation, stroke prevention, rate control. His CHADVASC core is 3 for stroke and hypertension. Therefore he is a candidate for oral anti-coagulation therapy. We will start him on Eliquis. We will continue rate control. He hopefully will be able to be discharged today and follow-up in the office in the next 4-6 weeks. Uninterrupted Eliquis therapy is recommended. If he continues to be in atrial fibrillation, electrical cardioversion will be performed. Thank you for your consultation. Please call me if you have any questions. Corwin Pedraza MD, FACP, FACC, FSCAI, FHRS, CCDS Interventional Cardiology Cardiac Electrophysiology Vascular Medicine and Endovascular Interventions Clinical Quality Measures AMI/AHF: ASA po Prior to arrival: No DVT/VTE Risk/Contraindication: Risk Factor Score Per Nursin RFS Level Per Nursing on Admit: 3=High Edwin PEDRAZA MD Dec 15, 2016 13:10
[2016-12-15] MEDS: BACLOFEN 10 MG (LIORESAL) TAB PO PRN (14:51)
[2016-12-15] MEDS ORDERED: DILTIAZEM 120 MG (CARDIZEM CD) CAP PO ONE (15:03)
[2016-12-15] MEDS ORDERED: DILTIAZEM 120 MG (CARDIZEM CD) CAP PO SCH (15:15)
[2016-12-15] MEDS ORDERED: APIX5TAB PO (17:01)
[2016-12-15] MEDS ORDERED: DILT120C82 PO (17:01)
[2016-12-15] MEDS ORDERED: AMOX-355 PO (17:03)
[2016-12-15] MEDS ORDERED: NON-FORMULARY MEDICATION 1 EA EA (Meloxicam 15 MG) PO SCH (21:00)
[2016-12-15] MEDS ORDERED: CARVEDILOL 12.5 MG (COREG) TABLET PO SCH ×2 (21:00)
[2016-12-16] MEDS ORDERED: ASPIRIN E.C. 81 MG (ECOTRIN) TAB PO SCH (09:00)
[2016-12-16] MEDS ORDERED: amLODIPine 10 MG (NORVASC) TAB PO SCH (09:00)
--- NOTE | 2016-12-17 11:15 | Physician Query-Final Dx ---
NATALY CARRION 12/17/16 1115: Final Diagnosis Give Final Diagnosis Please give Final Diagnosis ABDIAZIZ ANTONIO DO 12/17/16 1123: Final Diagnosis Give Final Diagnosis Atrial fibrillation w/RVR NATALY CARRION Dec 17, 2016 11:15 ABDIAZIZ ANTONIO DO Dec 17, 2016 11:23
--- OUTSIDE RECORDS SUMMARY | 2016-12-24 19:34 | XMS REPORT ---
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
--- OUTSIDE RECORDS SUMMARY | 2016-12-24 19:34 | XMS REPORT ---
Author Author JOSHUA LINO Organization eClinicalWorks Address Unknown Phone Unavailable Care Team Providers Care Adjunct Lecturer Name Role Phone JOSHUA LINO CP Unavailable Allergies No Known Allergies Problems Problem Type Condition Code Onset Dates Condition Status Assessment Late effects of CVA (cerebrovascular accident) I69.90 Active Problem Elevated alanine aminotransferase (ALT) level R74.0 Active Assessment Essential hypertension with goal blood pressure less than 130\/85 I10 Active Problem Anxiety F41.9 Active Problem Neck pain M54.2 Active Problem Essential hypertension with goal blood pressure less than 130\/85 I10 Active Problem Late effects of CVA (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
--- OUTSIDE RECORDS SUMMARY | 2016-12-24 19:35 | XMS REPORT ---
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
--- OUTSIDE RECORDS SUMMARY | 2016-12-24 19:35 | XMS REPORT ---
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
--- OUTSIDE RECORDS SUMMARY | 2016-12-24 19:35 | XMS REPORT ---
Author Author JOSHUA LINO Organization eClinicalWorks Address Unknown Phone Unavailable Care Team Providers Care Drafting Instructor Name Role Phone JOSHUA LINO CP Unavailable Allergies, Adverse Reactions, Alerts Substance Reaction Event Type N.K.D.A. 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 Medications Medication Code System Code Instructions Start Date End Date Status Dosage HydrALAZINE HCl [facility] [address]-46 100 MG Orally 3 times a day 1 tablet Amlodipine Besylate [facility] [id number] 10 MG TAKE ONE TABLET BY MOUTH DAILY Cyclobenzaprine HCl [facility] [address]-33 10 MG Orally every 8 hours PRN 1 tablet Hydrocodone-Acetaminophen [facility] [address]-92 5-325 MG Orally every 4 hrs 1 tablet as needed Green Tea Extract [facility] [address] not defined Probiotic [facility] [address] Orally not defined Aspir-81 [facility] [address]-62 81 MG Orally Once a day 1 tablet Carvedilol [facility] [address]-69 25 MG Orally Twice a day 2 tablet with food Procedures Procedure Coding System Code Date Office Visit, Est Pt., Level 3 CPT-4 35366 Feb 28, 2015 Vital Signs Date/Time: Feb 28, 2015 Temperature 98.0 F Weight 208.8 lbs Height 70 in BMI 29.96 Index Blood Pressure Diastolic 74 mmHg Blood Pressure Systolic 122 mmHg Cardiac Monitoring Heart Rate 76 bpm Results No Known Results Summary Purpose eClinicalWorks Submission
--- OUTSIDE RECORDS SUMMARY | 2016-12-24 19:35 | XMS REPORT ---
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
--- OUTSIDE RECORDS SUMMARY | 2016-12-24 19:35 | XMS REPORT | Continuity of Care Document ---
Author Author [facility] Organization [facility] Address Unknown Phone Unavailable Allergies Active Description Code Type Severity Reaction Onset Reported/Identified Relationship to Patient Clinical Status Yes No Known Drug Allergies [id number] Drug Allergy Unknown N/ A 02/25/2015 Medications Problems Date Dx Coded Attending Type Code Diagnosis Diagnosed By 04/22/1531 CLAUDIO STEVENS MD Ot M54.2 10/24/2014 MADL, JOSHUA L WAREHOUSE MATERIAL HANDLER Ot 438.0 10/24/2014 MADL, JOSHUA L WAREHOUSE MATERIAL HANDLER Ot 438.10 10/24/2014 MADL, JOSHUA L WAREHOUSE MATERIAL HANDLER Ot 438.7 10/24/2014 MADL, JOSHUA L WAREHOUSE MATERIAL HANDLER Ot V57.3 10/24/2014 MADL, JOSHUA L WAREHOUSE MATERIAL HANDLER Ot 438.0 10/24/2014 MADL, JOSHUA L WAREHOUSE MATERIAL HANDLER Ot 438.10 10/24/2014 MADL, JOSHUA L WAREHOUSE MATERIAL HANDLER Ot 438.7 10/24/2014 MADL, JOSHUA L WAREHOUSE MATERIAL HANDLER Ot V57.3 10/24/2014 MADL, JOSHUA L WAREHOUSE MATERIAL HANDLER Ot 438.0 10/24/2014 MADL, JOSHUA L WAREHOUSE MATERIAL HANDLER Ot 438.10 10/24/2014 MADL, JOSHUA L WAREHOUSE MATERIAL HANDLER Ot 438.7 10/24/2014 MADL, JOSHUA L WAREHOUSE MATERIAL HANDLER Ot V57.3 11/14/2014 MADL, JOSHUA L WAREHOUSE MATERIAL HANDLER Ot 438.0 11/14/2014 MADL, JOSHUA L WAREHOUSE MATERIAL HANDLER Ot 438.10 11/14/2014 MADL, JOSHUA L WAREHOUSE MATERIAL HANDLER Ot 438.7 11/14/2014 MADL, JOSHUA L WAREHOUSE MATERIAL HANDLER Ot V57.3 11/21/2014 MADL, JOSHUA L WAREHOUSE MATERIAL HANDLER Ot 438.0 11/21/2014 MADL, JOSHUA L WAREHOUSE MATERIAL HANDLER Ot 438.10 11/21/2014 JOSHUA LINO WAREHOUSE MATERIAL HANDLER Ot 438.7 11/21/2014 JOSHUA LINO WAREHOUSE MATERIAL HANDLER Ot V57.3 01/01/2015 JOSHUA LINO WAREHOUSE MATERIAL HANDLER Ot 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, COGNITIVE 01/01/2015 MADLSULTANAA Fabienne WAREHOUSE MATERIAL HANDLER Ot 438.10 LATE EFF-CEREBR DIS NOS, SPEECH LANGUA 01/01/2015 MADJOSHUA Loving WAREHOUSE MATERIAL HANDLER Ot 438.7 DISTURBANCES OF VISION 01/01/2015 JOSHUA LINO WAREHOUSE MATERIAL HANDLER Ot V57.3 CARE INVOLVING SPEECH-LANGUAGE THERAPY 02/25/2015 VONDA ALEJANDRA Ot 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 02/25/2015 VONDA ALEJANDRA Ot M54.2 CERVICALGIA 02/25/2015 VONDA ALEJANDRA Ot S13.4XXA SPRAIN OF LIGAMENTS OF CERVICAL SPINE , I 02/25/2015 VONDA ALEJANDRA Ot S73.101A UNSPECIFIED SPRAIN OF RIGHT HIP, INITIAL 02/25/2015 VONDA ALEJANDRA Ot X58.XXXA EXPOSURE TO OTHER SPECIFIED FACTORS, INI 02/25/2015 VONDA ALEJANDRA Ot Y99.8 OTHER EXTERNAL CAUSE STATUS 04/08/2015 CLAUDIO STEVENS MD Ot M25.551 04/16/2015 CLAUDIO STEVENS MD, Ot M54.2 04/19/2015 CLAUDIO STEVENS MD, Ot M54.2 05/23/2015 CLAUDIO STEVENS MD Ot M54.2 06/20/2015 CLAUDIO STEVENS MD Ot M54.2 CERVICALGIA 06/27/2015 CLAUDIO STEVENS MD Ot M54.2 07/18/2015 CLAUDIO STEVENS MD Ot M54.2 07/30/2015 CLAUDIO STEVENS MD Ot M54.2 CERVICALGIA 09/11/2015 CLAUDIO STEVENS MD Ot M25.551 PAIN IN RIGHT HIP 09/11/2015 CLAUDIO STEVENS MD Ot M25.551 PAIN IN RIGHT HIP 09/11/2015 CLAUDIO STEVENS MD Ot M54.5 LOW BACK PAIN 09/12/2015 CLAUDIO STEVENS MD Ot M25.551 PAIN IN RIGHT HIP 09/12/2015 HILDA GARZA, CLAUDIO Biggs Ot M54.5 LOW BACK PAIN 12/14/2016 CLAUDIO STEVENS MD Ot M25.551 PAIN IN RIGHT HIP 12/14/2016 CLAUDIO STEVENS MD Ot M25.551 PAIN IN RIGHT HIP 12/14/2016 CLAUDIO STEVENS MD Ot M54.5 LOW BACK PAIN 12/15/2016 ANTONIO DO, ABDIAZIZ Ot F41.9 ANXIETY DISORDER, UNSPECIFIED 12/15/2016 ANTONIO DO, ABDIAZIZ Ot I10 ESSENTIAL (PRIMARY) HYPERTENSION 12/15/2016 ANTONIO DO, ABDIAZIZ Ot I48.0 PAROXYSMAL ATRIAL FIBRILLATION 12/15/2016 ANTONIO DO, ABDIAZIZ Ot J18.9 PNEUMONIA, UNSPECIFIED ORGANISM 12/15/2016 ANTONIO DO, ABDIAZIZ Ot M54.31 SCIATICA, RIGHT SIDE 12/15/2016 ANTONIO DO, ABDIAZIZ Ot R74.8 ABNORMAL LEVELS OF OTHER SERUM ENZYMES 12/15/2016 ANTONIO DO, ABDIAZIZ Ot Z86.73 PRSNL HX OF TIA (TIA), AND CEREB INFRC W 12/15/2016 ANTONIO DO, ABDIAZIZ Ot F41.9 ANXIETY DISORDER, UNSPECIFIED 12/15/2016 ANTONIO DO, ABDIAZIZ Ot I10 ESSENTIAL (PRIMARY) HYPERTENSION 12/15/2016 ANTONIO DO, ABDIAZIZ Ot I48.0 PAROXYSMAL ATRIAL FIBRILLATION 12/15/2016 ANTONIO DO, ABDIAZIZ Ot J18.9 PNEUMONIA, UNSPECIFIED ORGANISM 12/15/2016 ANTONIO DO, ABDIAZIZ Ot M54.31 SCIATICA, RIGHT SIDE 12/15/2016 ANTONIO DO, ABDIAZIZ Ot R74.8 ABNORMAL LEVELS OF OTHER SERUM ENZYMES 12/15/2016 ANTONIO DO, ABDIAZIZ Ot Z86.73 PRSNL HX OF TIA (TIA), AND CEREB INFRC W Procedures Results Test Result Range Complete blood count (CBC) with automated white blood cell (WBC) differential - 12/14/16 14:42 Blood leukocytes automated count (number/volume) 12.1 10*3/ uL 4.3-11.0 Blood erythrocytes automated count (number/volume) 4.72 10*6 /uL 4.35-5.85 Venous blood hemoglobin measurement (mass/volume) 15.3 g/dL 13.3-17.7 Blood hematocrit (volume fraction) 44 % 40-54 Automated erythrocyte mean corpuscular volume 93 [foz_us] 80-99 Automated erythrocyte mean corpuscular hemoglobin (mass per erythrocyte) 32 pg 25-34 Automated erythrocyte mean corpuscular hemoglobin concentration measurement ( mass/volume) 35 g/dL 32-36 Automated erythrocyte distribution width ratio 14.6 % 10.0-14.5 Automated blood platelet count (count/volume) 265 10*3/uL 130-400 Automated blood platelet mean volume measurement 10.6 [foz_ us] 7.4-10.4 Automated blood neutrophils/100 leukocytes 53 % 42-75 Automated blood lymphocytes/100 leukocytes 31 % 12-44 Blood monocytes/100 leukocytes 15 % 0-12 Automated blood eosinophils/100 leukocytes 2 % 0-10 Automated blood basophils/100 leukocytes 0 % 0-10 Blood neutrophils automated count (number/volume) 6.4 10*3 1.8-7.8 Blood lymphocytes automated count (number/volume) 3.8 10*3 1.0-4.0 Blood monocytes automated count (number/volume) 1.8 10*3 0.0-1.0 Automated eosinophil count 0.2 10*3/uL 0.0-0.3 Automated blood basophil count (count/volume) 0.0 10*3/uL 0.0-0.1 PT panel in platelet poor plasma by coagulation assay - 12/14/16 14:42 Prothrombin time (PT) in platelet poor plasma by coagulation assay 12.1 s 12.2-14.7 INR in platelet poor plasma or blood by coagulation assay 0.9 0.8-1.4 Activated partial thromboplastin time (aPTT) in platelet poor plasma bycoagulation assay - 12/14/16 14:42 Activated partial thromboplastin time (aPTT) in platelet poor plasma bycoagulation assay 30 s 24-35 Comprehensive metabolic panel - 12/14/16 14:42 Serum or plasma sodium measurement (moles/volume) 137 mmol/ L 135-145 Serum or plasma potassium measurement (moles/volume) 4.1 mmol/L 3.6-5.0 Serum or plasma chloride measurement (moles/volume) 102 mmol /L 98-107 Carbon dioxide 25 mmol/L 21-32 Serum or plasma anion gap determination (moles/volume) 10 mmol/L 5-14 Serum or plasma urea nitrogen measurement (mass/volume) 20 mg/dL 7-18 Serum or plasma creatinine measurement (mass/volume) 1.50 mg /dL 0.60-1.30 Serum or plasma urea nitrogen/creatinine mass ratio 13 NRG Serum or plasma creatinine measurement with calculation of estimated glomerular filtration rate 48 NRG Serum or plasma glucose measurement (mass/volume) 115 mg/dL 70-105 Serum or plasma calcium measurement (mass/volume) 9.5 mg/dL 8.5-10.1 Serum or plasma total bilirubin measurement (mass/volume) 0.5 mg/dL 0.1-1.0 Serum or plasma alkaline phosphatase measurement (enzymatic activity/volume) 35 U/L 40-136 Serum or plasma aspartate aminotransferase measurement (enzymatic activity/ volume) 51 U/L 5-34 Serum or plasma alanine aminotransferase measurement (enzymatic activity/volume ) 100 U/L 0-55 Serum or plasma protein measurement (mass/volume) 7.4 g/dL 6.4-8.2 Serum or plasma albumin measurement (mass/volume) 4.3 g/dL 3.2-4.5 Magnesium - 12/14/16 14:42 Magnesium 2.6 mg/dL 1.8-2.4 Serum or plasma troponin i.cardiac measurement (mass/volume) - 12/14/16 14:42 Serum or plasma troponin i.cardiac measurement (mass/volume) < ng/mL <0.30 Myoglobin, serum - 12/14/16 14:42 Myoglobin, serum 44.3 ng/mL 10.0-92.0 Serum or plasma amylase measurement (enzymatic activity/volume) - 12/14/16 14: 42 Serum or plasma amylase measurement (enzymatic activity/volume) 53 U/L 25-125 Lipase - 12/14/16 14:42 Lipase 52 U/L 8-78 Acute hepatitis panel - 12/14/16 14:42 Confirmatory quantitative serum or plasma hepatitis B virus surface antigen measurement Non-Reactive Non-Reactive Hepatitis A virus IgM antibody assay Non-Reactive Non-Reactive Hepatitis B virus core IgM antibody assay Non-Reactive Non-Reactive Serum hepatitis C virus antibody detection Non-Reactive Non-Reactive Activated partial thromboplastin time (aPTT) in platelet poor plasma bycoagulation assay - 12/14/16 20:36 Activated partial thromboplastin time (aPTT) in platelet poor plasma bycoagulation assay 74 s 24-35 Serum or plasma troponin i.cardiac measurement (mass/volume) - 12/14/16 22:38 Serum or plasma troponin i.cardiac measurement (mass/volume) < ng/mL <0.30 Complete blood count (CBC) with automated white blood cell (WBC) differential - 12/15/16 02:50 Blood leukocytes automated count (number/volume) 14.9 10*3/ uL 4.3-11.0 Blood erythrocytes automated count (number/volume) 5.02 10*6 /uL 4.35-5.85 Venous blood hemoglobin measurement (mass/volume) 16.3 g/dL 13.3-17.7 Blood hematocrit (volume fraction) 46 % 40-54 Automated erythrocyte mean corpuscular volume 92 [foz_us] 80-99 Automated erythrocyte mean corpuscular hemoglobin (mass per erythrocyte) 33 pg 25-34 Automated erythrocyte mean corpuscular hemoglobin concentration measurement ( mass/volume) 35 g/dL 32-36 Automated erythrocyte distribution width ratio 14.7 % 10.0-14.5 Automated blood platelet count (count/volume) 263 10*3/uL 130-400 Automated blood platelet mean volume measurement 10.6 [foz_ us] 7.4-10.4 Automated blood neutrophils/100 leukocytes 62 % 42-75 Automated blood lymphocytes/100 leukocytes 24 % 12-44 Blood monocytes/100 leukocytes 13 % 0-12 Automated blood eosinophils/100 leukocytes 2 % 0-10 Automated blood basophils/100 leukocytes 0 % 0-10 Blood neutrophils automated count (number/volume) 9.1 10*3 1.8-7.8 Blood lymphocytes automated count (number/volume) 3.5 10*3 1.0-4.0 Blood monocytes automated count (number/volume) 1.9 10*3 0.0-1.0 Automated eosinophil count 0.3 10*3/uL 0.0-0.3 Automated blood basophil count (count/volume) 0.0 10*3/uL 0.0-0.1 Activated partial thromboplastin time (aPTT) in platelet poor plasma bycoagulation assay - 12/15/16 02:50 Activated partial thromboplastin time (aPTT) in platelet poor plasma bycoagulation assay 59 s 24-35 Comprehensive metabolic panel - 12/15/16 02:50 Serum or plasma sodium measurement (moles/volume) 139 mmol/ L 135-145 Serum or plasma potassium measurement (moles/volume) 3.8 mmol/L 3.6-5.0 Serum or plasma chloride measurement (moles/volume) 106 mmol /L 98-107 Carbon dioxide 19 mmol/L 21-32 Serum or plasma anion gap determination (moles/volume) 14 mmol/L 5-14 Serum or plasma urea nitrogen measurement (mass/volume) 16 mg/dL 7-18 Serum or plasma creatinine measurement (mass/volume) 1.10 mg /dL 0.60-1.30 Serum or plasma urea nitrogen/creatinine mass ratio 15 NRG Serum or plasma creatinine measurement with calculation of estimated glomerular filtration rate > NRG Serum or plasma glucose measurement (mass/volume) 104 mg/dL 70-105 Serum or plasma calcium measurement (mass/volume) 9.3 mg/dL 8.5-10.1 Serum or plasma total bilirubin measurement (mass/volume) 0.6 mg/dL 0.1-1.0 Serum or plasma alkaline phosphatase measurement (enzymatic activity/volume) 40 U/L 40-136 Serum or plasma aspartate aminotransferase measurement (enzymatic activity/ volume) 47 U/L 5-34 Serum or plasma alanine aminotransferase measurement (enzymatic activity/volume ) 106 U/L 0-55 Serum or plasma protein measurement (mass/volume) 7.5 g/dL 6.4-8.2 Serum or plasma albumin measurement (mass/volume) 4.3 g/dL 3.2-4.5 Serum or plasma phosphate measurement (mass/volume) - 12/15/16 02:50 Serum or plasma phosphate measurement (mass/volume) 3.0 mg/ dL 2.3-4.7 Magnesium - 12/15/16 02:50 Magnesium 2.3 mg/dL 1.8-2.4 Lipid 1996 panel - 12/15/16 02:50 Serum or plasma triglyceride measurement (mass/volume) 295 mg/dL <150 Serum or plasma cholesterol measurement (mass/volume) 203 mg /dL < 200 Serum or plasma cholesterol in HDL measurement (mass/volume) 36 mg/dL 40-60 Cholesterol in LDL [mass/volume] in serum or plasma by direct assay 129 mg/dL 1-129 Serum or plasma cholesterol in VLDL measurement (mass/volume) 59 mg/dL 5-40 Blood manual differential performed detection - 12/15/16 02:50 Blood monocytes/100 leukocytes 11 % NRG Manual blood segmented neutrophils/100 leukocytes 66 % NRG Blood band neutrophils/100 leukocytes 0 % NRG Manual blood lymphocytes/100 leukocytes 16 % NRG Manual eosinophils/100 leukocytes in nose 1 % NRG Manual blood basophils/100 leukocytes 0 % NRG Blood lymphocytes variant/100 leukocytes 6 % NRG Blood erythrocyte morphology finding identification NORMAL NRG Bacterial blood culture - 12/15/16 08:23 Bacterial blood culture NG NRG Blood lactic acid measurement (moles/volume) - 12/15/16 08:32 Blood lactic acid measurement (moles/volume) 1.08 mmol/L 0.50-2.00 Activated partial thromboplastin time (aPTT) in platelet poor plasma bycoagulation assay - 12/15/16 08:32 Activated partial thromboplastin time (aPTT) in platelet poor plasma bycoagulation assay 64 s 24-35 Bacterial blood culture - 12/15/16 08:32 Bacterial blood culture NG NRG Bacterial blood culture - 12/15/16 08:48 Bacterial blood culture NG NRG Urine drug screening test - 12/15/16 09:00 Urine phencyclidine detection by screening method NEGATIVE NEGATIVE Urine benzodiazepines detection by screening method NEGATIVE NEGATIVE Urine cocaine detection NEGATIVE NEGATIVE Urine amphetamines detection by screening method NEGATIVE NEGATIVE Urine methamphetamine detection by screening method NEGATIVE NEGATIVE Urine cannabinoids detection by screening method NEGATIVE NEGATIVE Urine opiates detection by screening method POSITIVE NEGATIVE Urine barbiturates detection NEGATIVE NEGATIVE Screening urine tricyclic antidepressants detection NEGATIVE NEGATIVE Urine methadone detection by screening method NEGATIVE NEGATIVE Urine oxycodone detection NEGATIVE NEGATIVE Urine propoxyphene detection NEGATIVE NEGATIVE Complete urinalysis with reflex to culture - 12/15/16 09:00 Urine color determination YELLOW NRG Urine clarity determination SLIGHTLY CLOUDY NRG Urine pH measurement by test strip 7 5- 9 Specific gravity of urine by test strip 1.010 1.016-1.022 Urine protein assay by test strip, semi-quantitative 2+ NEGATIVE Urine glucose detection by automated test strip NEGATIVE NEGATIVE Erythrocytes detection in urine sediment by light microscopy NEGATIVE NEGATIVE Urine ketones detection by automated test strip NEGATIVE NEGATIVE Urine nitrite detection by test strip NEGATIVE NEGATIVE Urine total bilirubin detection by test strip NEGATIVE NEGATIVE Urine urobilinogen measurement by automated test strip (mass/volume) NORMAL NORMAL Urine leukocyte esterase detection by dipstick NEGATIVE NEGATIVE Automated urine sediment erythrocyte count by microscopy (number/high power field) NONE NRG Automated urine sediment leukocyte count by microscopy (number/high power field ) NONE NRG Bacteria detection in urine sediment by light microscopy NEGATIVE NRG Crystals detection in urine sediment by light microscopy NONE NRG Casts detection in urine sediment by light microscopy NONE NRG Mucus detection in urine sediment by light microscopy NEGATIVE NRG Complete urinalysis with reflex to culture NO NRG Encounters ACCT No. Visit Date/Time Discharge Status Pt. Type Provider Facility Loc./Unit Complaint [id number] 12/14/2016 15:50:00 2016 17:40:00 DIS Inpatient ABDIAZIZ ANTONIO DO [facility] ICU AFIB W/ RVR [id number] 07/30/2015 14:13:00 2015 15:32:00 DIS Outpatient CLAUDIO STEVENS MD [facility] REHAB CERVICALGIA [id number] 03/22/2015 14:29:00 2014 23:59:59 CLS Outpatient CLAUDIO STEVENS MD [facility] RAD PAIN IN R HIP [id number] 02/25/2015 19:05:00 2014 22:03:00 DIS Emergency VONDA ALEJANDRA [facility] ER HEAD,LEG PAIN [id number] 12/18/2014 15:44:00 2014 13:43:00 DIS Outpatient JOSHUA LINO [facility] REHAB POST STROKE SPEECH/LANG [id number] 09/11/2015 09:39:00 ACT Outpatient CLAUDIO STEVENS MD [facility] RAD LOW BACK PAIN,RT HIP PAIN [id number] 06/18/2015 13:32:00 ACT Outpatient CLAUDIO STEVENS MD [facility] REHAB CERVICALGIA
--- OUTSIDE RECORDS SUMMARY | 2016-12-24 19:35 | XMS REPORT ---
Author Author JOSHUA LINO [facility] [employer] Address Unknown Phone Unavailable Care Team Providers Care [employer] Super[employer] Name Role Phone JOSHUA LINO CP Unavailable Allergies, Adverse Reactions, Alerts Substance Reaction Event Type N.K.D.A. 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 Active Problem Elevated alanine aminotransferase (ALT) level R74.0 Active Assessment Essential hypertension with goal blood pressure less than 130\/85 I10 Active Assessment Anxiety F41.9 Active Problem Anxiety F41.9 Active Problem Neck [...] Instructions Start Date End Date Status Dosage Potassium Gluconate [facility] [address] 550 MG Orally Once a day 1 tablet Aspir-81 [facility] [address]-31 81 MG Orally Once a day 1 tablet Meloxicam [facility] [address]-25 15 MG Orally Once a day 1 tablet Amlodipine Besylate [facility] [address]-71 10 mg Orally Once a day 1 tablet Amitriptyline HCl [facility] [address]-63 50 MG Orally Once a day 1 tablet Taurine [facility] [address]-66 500 MG Orally Once a day not defined Co Q-10 [facility] [address]598 100 MG Orally Once a day 1 capsule with a meal D3 + K2 Dots [facility] 12032-95134 1000-90 UN[employer] Orally not defined Baclofen [facility] [address]-69 10 MG Orally Three times a day 1 tablet with food or milk Carvedilol [facility] [address]-68 25 MG Orally 2 times a day 2 tablets Magnesium Citrate [facility] [address]99-[address]12 100 MG Orally Once a day not defined HydrALAZINE HCl [facility] [address]-73 100 MG Orally 3 times a day PRN 1 tablet Manganese [facility] [address]-75 10 MG Orally Once a day 1 tablet Probiotic [facility] [address]78-[address] Orally not defined Green Tea Extract [facility] [address] not defined Procedures Procedure Coding System Code Date Office Visit, Est Pt., Level 4 CPT-4 27464 Mar 26, 2016 Vital Signs Date/Time: Mar 26, 2016 Cardiac Monitoring Heart Rate 72 bpm Weight 232.5 lbs Height 70 in BMI 33.36 Index Blood Pressure Diastolic 74 mmHg Blood Pressure Systolic 128 mmHg Results No Known Results Summary Purpose eClinicalWorks Submission
--- OUTSIDE RECORDS SUMMARY | 2016-12-24 19:35 | XMS REPORT ---
Author Author JOSHUA LINO Organization [employer] Address Unknown Phone Unavailable Care Team Providers Care [employer] Name Role Phone JOSHUA LINO CP Unavailable Allergies No Known Allergies Problems Problem Type Condition Code Onset Dates Condition Status Problem Elevated alanine aminotransferase (ALT) level R74.0 Active Assessment Elevated alanine aminotransferase (ALT) level R74.0 Active Problem Anxiety F41.9 Active Problem Neck pain M54.2 Active Problem Essential hypertension with goal blood pressure less than 130\/85 I10 Active Problem Late effects of CVA (cerebrovascular accident) 438.9 Active Problem Speech or language deficit, 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
--- OUTSIDE RECORDS SUMMARY | 2016-12-24 20:35 | XMS REPORT | Continuity of Care Document ---
Author Author [facility] Organization [facility] Address Unknown Phone Unavailable Allergies Active Description Code Type Severity Reaction Onset Reported/Identified Relationship to Patient Clinical Status Yes No Known Drug Allergies [id number] Drug Allergy Unknown N/ A 02/25/2015 Medications Problems Date Dx Coded Attending Type Code Diagnosis Diagnosed By 04/22/1531 CLAUDIO STEVENS MD Ot M54.2 10/24/2014 MADL, JOSHUA L SHERIFF SERGEANT Ot 438.0 10/24/2014 MADL, JOSHUA L SHERIFF SERGEANT Ot 438.10 10/24/2014 MADL, JOSHUA L SHERIFF SERGEANT Ot 438.7 10/24/2014 MADL, JOSHUA L SHERIFF SERGEANT Ot V57.3 10/24/2014 MADL, JOSHUA L SHERIFF SERGEANT Ot 438.0 10/24/2014 MADL, JOSHUA L SHERIFF SERGEANT Ot 438.10 10/24/2014 MADL, JOSHUA L SHERIFF SERGEANT Ot 438.7 10/24/2014 MADL, JOSHUA L SHERIFF SERGEANT Ot V57.3 10/24/2014 MADL, JOSHUA L SHERIFF SERGEANT Ot 438.0 10/24/2014 MADL, JOSHUA L SHERIFF SERGEANT Ot 438.10 10/24/2014 MADL, JOSHUA L SHERIFF SERGEANT Ot 438.7 10/24/2014 MADL, JOSHUA L SHERIFF SERGEANT Ot V57.3 11/14/2014 MADL, JOSHUA L SHERIFF SERGEANT Ot 438.0 11/14/2014 MADL, JOSHUA L SHERIFF SERGEANT Ot 438.10 11/14/2014 MADL, JOSHUA L SHERIFF SERGEANT Ot 438.7 11/14/2014 MADL, JOSHUA L SHERIFF SERGEANT Ot V57.3 11/21/2014 MADL, JOSHUA L SHERIFF SERGEANT Ot 438.0 11/21/2014 MADL, JOSHUA L SHERIFF SERGEANT Ot 438.10 11/21/2014 JOSHUA LINO SHERIFF SERGEANT Ot 438.7 11/21/2014 JOSHUA LINO SHERIFF SERGEANT Ot V57.3 01/01/2015 JOSHUA LINO SHERIFF SERGEANT Ot 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 Type Provider Facility Loc./Unit Complaint [id number] 12/14/2016 15:50:00 2016 17:40:00 DIS Inpatient ABDIAZIZ ANTONIO DO [facility] ICU AFIB W/ RVR [id number] 07/30/2015 14:13:00 2015 15:32:00 DIS Outpatient CLAUDIO STEVENS MD [facility] REHAB CERVICALGIA [id number] 03/22/2015 14:29:00 2014 23:59:59 CLS Outpatient CLAUDIO STEVENS MD [facility] RAD PAIN IN R HIP [id number] 02/25/2015 19:05:00 2014 22:03:00 DIS Emergency VONDA ALEJANDRA [facility] ER HEAD,LEG PAIN [id number] 12/18/2014 15:44:00 2014 13:43:00 DIS Outpatient JOSHUA LINO [facility] REHAB POST STROKE SPEECH/LANG [id number] 09/11/2015 09:39:00 ACT Outpatient CLAUDIO STEVENS MD [facility] RAD LOW BACK PAIN,RT HIP PAIN [id number] 06/18/2015 13:32:00 ACT Outpatient CLAUDIO STEVENS MD [facility] REHAB CERVICALGIA
== END 2016-12-15 17:40 | disposition home or self-care (01) | DRG 308 ==
LOC: EDUNIT# 14:39 → ER 14:40 → ICU 15:50
PROVIDERS: ADMIT Internal Medicine; ATTEND Internal Medicine
DX: I48.0 Paroxysmal atrial fibrillation (principal); J18.9 Pneumonia, unspecified organism; I10 Essential (primary) hypertension; F41.9 Anxiety disorder, unspecified; R74.8 Abnormal levels of other serum enzymes; M54.31 Sciatica, right side; Z86.73 Personal history of transient ischemic attack (TIA), and cerebral infarction without residual deficits
CPT/HCPCS: 36415; 71010; 76705; 80053; 80061; 80074; 80306; 81000; 82150; 83605; 83690; 83735; 83874; 84100; 84484; 85007; 85025; 85027; 85610; 85730; 87040; 93005; 93041; 93306; 96361; 96365; 96367

== ENCOUNTER → 2016-12-30 | Outpatient (CLI) | payer MEDICAID ==
[~2016-12-30] MED LIST changes: +AMLO10TA2; +AMLO10TA2 PO; +AMOX-355 PO; +APIX5TAB PO; +ASPI-983 PO; +BACL10TA PO; +CARV25TA; +CARV25TA PO; +DILT120C82 PO; +GABA-486; +GABA-486 PO; +HYDR100T27; +HYDR100T27 PO; +MELO15TA39; +MELO15TA39 PO; +PRD20T PO
--- NOTE | 2016-12-30 13:02 | Diagnostic Imaging Report ---
PROCEDURE: MRI lumbar spine. TECHNIQUE: Multiplanar, multisequence MRI of the lumbar spine was performed without contrast. INDICATION: Low back pain. Right sciatica pain. FINDINGS: There is straightening of the lumbar spine with satisfactory alignment of the posterior spinal line except for very minimal posterior translation of L4 over L5. The vertebral body heights are preserved. Disc heights are also preserved. There is mild disc desiccation at L3/4 and L4/5 levels. The marrow demonstrate a 1.3 cm hemangioma in L1 vertebral body. The cauda equina and conus medullaris appear grossly unremarkable. T12/L1: No disc herniation, no spinal canal or foraminal stenosis. L1/2: No disc herniation. There is mild facet hypertrophy. No spinal canal or foraminal stenosis. L2/3: No disc herniation. There is mild to moderate facet hypertrophy. No central canal, lateral recess or foraminal stenosis. L3/4: There is no disc herniation. There is mild to moderate facet hypertrophy. No central canal, or lateral recess stenosis. There is bilateral mild foramina narrowing. L4/5: There is a minimal disc bulge with biforaminal components and no significant posterior component. There is moderate bilateral facet hypertrophy. No central canal stenosis. There is mild narrowing of the lateral recess bilaterally. The foramina demonstrate bilateral moderate stenosis. There is an extraforaminal component of the disc abutting the exiting right L4 spinal nerve outside the foramina with no definite compression. L5/S1: No disc herniation. There is mild to moderate facet hypertrophy bilaterally. No central canal or lateral recess stenosis. No foraminal stenosis. IMPRESSION: 1. There is straightening of the lumbar spine which could relate to muscle spasm. 2. There is facet and mild disc degenerative changes. There is no high-grade spinal canal or foraminal stenosis seen at any level. Details at each level are described above. Dictated by: Dictated on workstation # [id number]
== END ==
LOC: RAD 09:21
PROVIDERS: ATTEND Nurse Practitioner Family
DX: M54.41 Lumbago with sciatica, right side (principal)
CPT/HCPCS: 72148

== ENCOUNTER → 2017-06-24 | Day surgery (SDC) | payer MEDICAID ==
[2017-06-24] VITALS (7 sets, daily range): BP systolic 96–118; BP diastolic 62–103
[~2017-06-24] VITALS: Ht 177.8 cm; Wt 117.5 kg
[~2017-06-24] MED LIST changes: +ACET-93 PO; +ACHD5005 PO; +DILT240C53 PO; +INFLUENZA TRIvalent 2017-2018 0.5 ML/45 MCG SYR IM ONE; +LIDOCAINE 1% INJ 50 ML (XYLOCAINE) VIAL ONE; +LIDOCAINE 2% VISCOUS 15 ML UDC ONE; +MAGN400C PO; +MIDAZOLAM 5 MG/5 ML (VERSED) VIAL ONE; +NS IV 1000 ML 1,000 ML IV SCH; +POTA99TA17 PO; +RIVA20TA PO; +proPOfol 200 MG/20 ML (DIPRIVAN) VIAL IV ONE
--- OUTSIDE RECORDS SUMMARY | 2017-06-24 07:43 | XMS REPORT | Continuity of Care Document ---
Author Author [facility] Organization [facility] Address Unknown Phone Unavailable Allergies Active Description Code Type Severity Reaction Onset Reported/Identified Relationship to Patient Clinical Status Yes No Known Drug Allergies [id number] Drug Allergy Unknown N/A 02/25/2015 Medications There is no data. Problems Date Dx Coded Attending Type Code Diagnosis Diagnosed By 04/22/1531 CLAUDIO STEVENS MD Ot M54.2 10/24/2014 MADL, JOSHUA L HEDIS ANALYST Ot 438.0 10/24/2014 MADL, JOSHUA L HEDIS ANALYST Ot 438.10 10/24/2014 MADL, JOSHUA L HEDIS ANALYST Ot 438.7 10/24/2014 MADL, JOSHUA L HEDIS ANALYST Ot V57.3 10/24/2014 MADL, JOSHUA L HEDIS ANALYST Ot 438.0 10/24/2014 MADL, JOSHUA L HEDIS ANALYST Ot 438.10 10/24/2014 MADL, JOSHUA L HEDIS ANALYST Ot 438.7 10/24/2014 MADL, JOSHUA L HEDIS ANALYST Ot V57.3 10/24/2014 MADL, JOSHUA L HEDIS ANALYST Ot 438.0 10/24/2014 MADL, JOSHUA L HEDIS ANALYST Ot 438.10 10/24/2014 MADL, JOSHUA L HEDIS ANALYST Ot 438.7 10/24/2014 MADL, JOSHUA L HEDIS ANALYST Ot V57.3 11/14/2014 MADL, JOSHUA L HEDIS ANALYST Ot 438.0 11/14/2014 MADL, JOSHUA L HEDIS ANALYST Ot 438.10 11/14/2014 MADL, JOSHUA L HEDIS ANALYST Ot 438.7 11/14/2014 MADL, JOSHUA L HEDIS ANALYST Ot V57.3 11/21/2014 MADL, JOSHUA L HEDIS ANALYST Ot 438.0 11/21/2014 MADL, JOSHUA L HEDIS ANALYST Ot 438.10 11/21/2014 JOSHUA LINO HEDIS ANALYST Ot 438.7 11/21/2014 JOSHUA LINO HEDIS ANALYST Ot V57.3 01/01/2015 JOSHUA LINO HEDIS ANALYST Ot 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, COGNITIVE 01/01/2015 MADJOSHUA Loving HEDIS ANALYST Ot 438.10 LATE EFF-CEREBR DIS NOS, SPEECH LANGUA 01/01/2015 JOSHUA LINO HEDIS ANALYST Ot 438.7 DISTURBANCES OF VISION 01/01/2015 JOSHUA LINO HEDIS ANALYST Ot V57.3 CARE INVOLVING SPEECH-LANGUAGE THERAPY 02/25/2015 VONDA ALEJANDRA Ot 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 02/25/2015 VONDA ALEJANDRA Ot M54.2 CERVICALGIA 02/25/2015 VONDA ALEJANDRA Ot S13.4XXA SPRAIN OF LIGAMENTS OF CERVICAL SPINE, I 02/25/2015 VONDA ALEJANDRA Ot S73.101A UNSPECIFIED SPRAIN OF RIGHT HIP, INITIAL 02/25/2015 VONDA ALEJANDRA Ot X58.XXXA EXPOSURE TO OTHER SPECIFIED FACTORS, INI 02/25/2015 VONDA ALEJANDRA Ot Y99.8 OTHER EXTERNAL CAUSE STATUS 04/08/2015 CLAUDIO STEVENS MD Ot M25.551 04/16/2015 CLAUDIO STEVENS MD Ot M54.2 04/19/2015 CLAUDIO STEVENS MD Ot M54.2 05/23/2015 CLAUDIO STEVENS MD Ot [...] M54.5 LOW BACK PAIN 09/12/2015 CLAUDIO STEVENS MD, Ot M25.551 PAIN IN RIGHT HIP 09/12/2015 CLAUDIO STEVENS MD Ot M54.5 LOW BACK PAIN 12/14/2016 CLAUDIO [...] OF TIA (TIA), AND CEREB INFRC W 12/30/2016 MADLJOSHUA HEDIS ANALYST Ot M54.41 LUMBAGO WITH SCIATICA, RIGHT SIDE 01/16/2017 MADLJOSHUA HEDIS ANALYST Ot M54.41 LUMBAGO WITH SCIATICA, RIGHT SIDE Procedures There is no data. Results Test Result Range Complete blood count (CBC) with automated white blood cell (WBC) differential - 12/14/16 14:42 Blood leukocytes automated count (number/volume) 12.1 10*3/uL 4.3-11.0 Blood erythrocytes automated count (number/volume) 4.72 10*6/uL 4.35-5.85 Venous blood hemoglobin measurement (mass/volume) 15.3 [...] Automated blood platelet mean volume measurement 10.6 [foz_us] 7.4-10.4 Automated blood neutrophils/100 leukocytes 53 % [...] Serum or plasma sodium measurement (moles/volume) 137 mmol/L 135-145 Serum or plasma potassium measurement (moles/volume) 4.1 mmol/L 3.6-5.0 Serum or plasma chloride measurement (moles/volume) 102 mmol/L 98-107 Carbon dioxide 25 mmol/L 21-32 Serum or plasma anion gap determination (moles/volume) 10 mmol/L 5-14 Serum or plasma urea nitrogen measurement (mass/volume) 20 mg/dL 7-18 Serum or plasma creatinine measurement (mass/volume) 1.50 mg/dL 0.60-1.30 Serum or plasma urea nitrogen/creatinine mass [...] or plasma troponin i.cardiac measurement (mass/volume) < ng/ mL <0.30 Myoglobin, serum - 12/14/16 14:42 Myoglobin, serum 44.3 ng/mL 10.0-92.0 Serum or plasma amylase measurement (enzymatic activity/volume) - 12/14/16 14: 42 Serum or plasma amylase measurement (enzymatic activity/volume) 53 U /L 25-125 Lipase - 12/14/16 14:42 Lipase 52 U/L 8-78 Acute hepatitis panel - 12/14/16 14:42 Confirmatory quantitative serum or plasma hepatitis B virus surface antigen measurement Non-Reactive Non-Reactive Hepatitis A virus IgM antibody assay Non-Reactive Non- Reactive Hepatitis B virus core IgM antibody assay Non-Reactive Non-Reactive Serum hepatitis C virus antibody detection Non-Reactive Non-Reactive Activated partial thromboplastin time (aPTT) in platelet poor plasma bycoagulation assay - 12/14/16 20:36 Activated partial thromboplastin time (aPTT) in platelet poor plasma bycoagulation assay 74 s 24-35 Serum or plasma troponin i.cardiac measurement (mass/volume) - 12/14/16 22:38 Serum or plasma troponin i.cardiac measurement (mass/volume) < ng/ mL <0.30 Complete blood count (CBC) with automated white blood cell (WBC) differential - 12/15/16 02:50 Blood leukocytes automated count (number/volume) 14.9 10*3/uL 4.3-11.0 Blood erythrocytes automated count (number/volume) 5.02 10*6/uL 4.35-5.85 Venous blood hemoglobin measurement (mass/volume) 16.3 [...] Automated blood platelet mean volume measurement 10.6 [foz_us] 7.4-10.4 Automated blood neutrophils/100 leukocytes 62 % [...] Serum or plasma sodium measurement (moles/volume) 139 mmol/L 135-145 Serum or plasma potassium measurement (moles/volume) 3.8 mmol/L 3.6-5.0 Serum or plasma chloride measurement (moles/volume) 106 mmol/L 98-107 Carbon dioxide 19 mmol/L 21-32 Serum or plasma anion gap determination (moles/volume) 14 mmol/L 5-14 Serum or plasma urea nitrogen measurement (mass/volume) 16 mg/dL 7-18 Serum or plasma creatinine measurement (mass/volume) 1.10 mg/dL 0.60-1.30 Serum or plasma urea nitrogen/creatinine mass [...] Serum or plasma phosphate measurement (mass/volume) 3.0 mg/dL 2.3-4.7 Magnesium - 12/15/16 02:50 Magnesium 2.3 mg/dL 1.8-2.4 Lipid 1996 panel - 12/15/16 02:50 Serum or plasma triglyceride measurement (mass/volume) 295 mg/dL <150 Serum or plasma cholesterol measurement (mass/volume) 203 mg/dL < 200 Serum or plasma cholesterol in HDL measurement (mass/volume) 36 mg/ dL 40-60 Cholesterol in LDL [mass/volume] in serum or plasma by direct assay 129 mg/dL 1-129 Serum or plasma cholesterol in VLDL measurement (mass/volume) 59 mg/ dL 5-40 Blood manual differential performed detection - [...] Urine pH measurement by test strip 7 5-9 Specific gravity of urine by test strip 1.010 1.016- 1.022 Urine protein assay by test strip, semi-quantitative [...] Status Pt. Type Provider Facility Loc./Unit Complaint [id number] 12/30/2016 09:21:00 12/30/2016 23:59:59 CLS Outpatient JOSHUA LINO [facility] RAD M54.41 [id number] 12/14/2016 15:50:00 12/15/2016 17:40:00 DIS Inpatient ABDIAZIZ ANTONIO DO [facility] ICU AFIB W/ RVR [id number] 09/11/2015 09:39:00 09/11/2015 23:59:59 CLS Outpatient CLAUDIO STEVENS MD [facility] RAD LOW BACK PAIN,RT HIP PAIN [id number] 07/30/2015 14:13:00 07/30/2015 15:32:00 DIS Outpatient CLAUDIO STEVENS MD [facility] REHAB CERVICALGIA [id number] 06/18/2015 13:32:00 06/18/2015 23:59:59 CLS Outpatient CLAUDIO STEVENS MD [facility] REHAB CERVICALGIA [id number] 03/22/2015 14:29:00 03/22/2015 23:59:59 CLS Outpatient CLAUDIO STEVENS MD [facility] RAD PAIN IN R HIP [id number] 02/25/2015 19:05:00 02/25/2015 22:03:00 DIS Emergency VONDA ALEJANDRA [facility] ER HEAD,LEG PAIN [id number] 12/18/2014 15:44:00 01/01/2015 13:43:00 DIS Outpatient JOSHUA LINO [facility] REHAB POST STROKE SPEECH/ LANG [id number] 06/24/2017 08:45:00 PEN Preadmit Edwin WATTS MD [facility] AF
--- NOTE | 2017-06-24 09:57 | Progress Note-Standard ---
Standard Progress Note Progress Notes/Assess & Plan Time Seen by Provider: 09:30 Final Diagnosis Consulted for sedation during TANIA/Cardioversion per Dr. Pedraza. History obtained , supplies at bedside. Versed 2 mg. IV, Propofol 150 mg. IV. Tolerated procedure well. Report to Metal Die Finisher RN care assumed. RODERICK HOWARD CRNA Jun 24, 2017 09:57
--- NOTE | 2017-06-24 19:56 | Cardioversion ---
Cardioversion PROCEDURE PHYSICIAN: Corwin Pedraza MD DATE OF PROCEDURE: 06/24/17 DIRECT EXTERNAL ELECTRICAL CARDIOVERSION: Indications: Atrial Fibrillation with rapid ventricular rate Preoperative diagnoses: Atrial Fibrillation with rapid ventricular rate Postoperative diagnosis: Sinus rhythm, Successful Electrical Cardioversion History: This is a 56-year-old gentleman with atrial fibrillation with rapid ventricular rate to refractory to medical therapy. Rhythm control strategy is recommended. Transesophageal echocardiogram did not show any left atrial or left atrial appendage thrombus. Direct electrical cardioversion is recommended. Anesthesia: By Anesthesia services Complications: None Specimen: None Contrast: 0 Flouroscopy: none Procedure Details: The patient was brought the [facility] [employer] after informed consent was taken, all the risks and complications were explained including the risk of stroke. TANIA did not show any LA or ARLETTE thrombus. Electrical cardioversion was carried out with anesthesia support with propofol. 200 joules of synchronized shock was delivered through external patches which promptly restored sinus rhythm. The patient tolerated the procedure well. Conclusions: 1.Successful Cardioversion. 2.Continue oral anticoagulation and rate controlling agent. 3.Follow up in office in 7 days. Corwin Pedraza MD, RS, CCDS Cardiac Electrophysiology Edwin PEDRAZA MD Jun 24, 2017 7:56 pm
--- NOTE | 2017-06-24 19:59 | Implantation of Loop Monitor ---
Implant of Loop Monitior PROCEDURE PHYSICIAN: Corwin Pedraza MD IMPLANTATION OF LOOP MONITOR REPORT DATE OF PROCEDURE: 06/24/17 ATTENDING PHYSICIAN: Dr. Ian Pedraza. REFERRING PHYSICIAN: Dr. Kelsey Parmar PERFORMING PHYSICIAN: Dr. Ian Pedraza. INDICATION: Long-term surveillance of atrial fibrillation, rhythm control strategy. PREOP DIAGNOSIS: Long-term surveillance of atrial fibrillation, rhythm control strategy. POSTOP DIAGNOSIS: Atrial fibrillation, s/p implantation of Biotronik loop recorder. PROCEDURE DETAILS: The patient is a 56 male with history of paroxysmal atrial fibrillation requiring long-term surveillance. Therefore implantable loop recorder was discussed and agreed with the patient. Informed consent was taken. All risks and complications were discussed at length. The patient was draped and prepped in the usual sterile fashion. Local anesthesia was lidocaine, which was given in the substernal area close to the 4th intercostal space. Biotronik Loop monitor ref [id number], serial number [id number], PID 78 was implanted according to the protocol. Steri-Strips were placed at the end of the procedure. There were no complications and the patient tolerated the procedure well. The device was interrogated with a voltage of 0.61mV. ANESTHESIA: Local anesthesia with lidocaine. COMPLICATIONS: None CONTRAST/FLUOROSCOPY: None CONCLUSION: 1. Successful implantation of Biotronik loop monitor for long-term surveillance of atrial fibrillation. 2. No complication and the patient tolerated the procedure well. Corwin Pedraza MD, RS, CCDS Cardiac Electrophysiology Edwin PEDRAZA MD Jun 24, 2017 7:59 pm
== END | disposition home or self-care (01) ==
LOC: CATH 07:38
PROVIDERS: ATTEND Internal Medicine Interventional Cardiology
DX: I48.1 Persistent atrial fibrillation (principal); I10 Essential (primary) hypertension; E66.9 Obesity, unspecified; Z68.37 Body mass index [BMI] 37.0-37.9, adult; Z79.01 Long term (current) use of anticoagulants; Z79.899 Other long term (current) drug therapy
CPT/HCPCS: 87081; 92960; 93005; 93306; 93312; 93320; 93325

== ENCOUNTER 2017-07-08 08:06 | Day surgery (SDC) | payer MEDICAID ==
[~2017-07-08] VITALS: Ht 177.8 cm; Wt 117.5 kg
[~2017-07-08 08:06] MED LIST changes: -INFLUENZA TRIvalent 2017-2018 0.5 ML/45 MCG SYR IM ONE; -LIDOCAINE 1% INJ 50 ML (XYLOCAINE) VIAL ONE; -LIDOCAINE 2% VISCOUS 15 ML UDC ONE; -MIDAZOLAM 5 MG/5 ML (VERSED) VIAL ONE; -NS IV 1000 ML 1,000 ML IV SCH; -proPOfol 200 MG/20 ML (DIPRIVAN) VIAL IV ONE
[2017-07-08] MEDS ORDERED: NS IV 1000 ML 1,000 ML IV SCH (08:30)
[2017-07-08 08:32] VITALS: BP 118/75
[2017-07-08 08:59] VITALS: BP 112/72
[2017-07-08] MEDS ORDERED: INFLUENZA TRIvalent 2017-2018 0.5 ML/45 MCG SYR IM ONE (09:45)
--- OUTSIDE RECORDS SUMMARY | 2017-07-09 10:42 | XMS REPORT | Continuity of Care Document ---
Author Author [facility] Organization [facility] Address Unknown Phone Unavailable Allergies Active Description Code Type Severity Reaction Onset Reported/Identified Relationship to Patient Clinical Status Yes No Known Drug Allergies [id number] Drug Allergy Unknown N/A 02/25/2015 Medications There is no data. Problems Date Dx Coded Attending Type Code Diagnosis Diagnosed By 04/22/1531 CLAUDIO STEVENS MD Ot M54.2 10/24/2014 MADL, JOSHUA L BYPRODUCTS PUMP OPERATOR Ot 438.0 10/24/2014 MADL, JOSHUA L BYPRODUCTS PUMP OPERATOR Ot 438.10 10/24/2014 MADL, JOSHUA L BYPRODUCTS PUMP OPERATOR Ot 438.7 10/24/2014 MADL, JOSHUA L BYPRODUCTS PUMP OPERATOR Ot V57.3 10/24/2014 MADL, JOSHUA L BYPRODUCTS PUMP OPERATOR Ot 438.0 10/24/2014 MADL, JOSHUA L BYPRODUCTS PUMP OPERATOR Ot 438.10 10/24/2014 MADL, JOSHUA L BYPRODUCTS PUMP OPERATOR Ot 438.7 10/24/2014 MADL, JOSHUA L BYPRODUCTS PUMP OPERATOR Ot V57.3 10/24/2014 MADL, JOSHUA L BYPRODUCTS PUMP OPERATOR Ot 438.0 10/24/2014 MADL, JOSHUA L BYPRODUCTS PUMP OPERATOR Ot 438.10 10/24/2014 MADL, JOSHUA L BYPRODUCTS PUMP OPERATOR Ot 438.7 10/24/2014 MADL, JOSHUA L BYPRODUCTS PUMP OPERATOR Ot V57.3 11/14/2014 MADL, JOSHUA L BYPRODUCTS PUMP OPERATOR Ot 438.0 11/14/2014 MADL, JOSHUA L BYPRODUCTS PUMP OPERATOR Ot 438.10 11/14/2014 MADL, JOSHUA L BYPRODUCTS PUMP OPERATOR Ot 438.7 11/14/2014 MADL, JOSHUA L BYPRODUCTS PUMP OPERATOR Ot V57.3 11/21/2014 MADL, JOSHUA L BYPRODUCTS PUMP OPERATOR Ot 438.0 11/21/2014 MADL, JOSHUA L BYPRODUCTS PUMP OPERATOR Ot 438.10 11/21/2014 JOSHUA LINO [employer]PRODUCTS PUMP OPERATOR Ot 438.7 11/21/2014 JOSHUA LINO [employer]PRODUCTS PUMP OPERATOR Ot V57.3 01/01/2015 JOSHUA LINO [employer]PRODUCTS PUMP OPERATOR Ot 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, COGNITIVE 01/01/2015 MADJOSHUA Loving BYPRODUCTS PUMP OPERATOR Ot 438.10 LATE EFF-CEREBR DIS NOS, SPEECH LANGUA 01/01/2015 JOSHUA LINO [employer] PUMP OPERATOR Ot 438.7 DISTURBANCES OF VISION 01/01/2015 JOSHUA LINO [employer] PUMP OPERATOR Ot V57.3 CARE INVOLVING SPEECH-LANGUAGE THERAPY 02/25/2015 [...] TIA (TIA), AND CEREB INFRC W 12/30/2016 MADL, JOSHUA Loving BYPRODUCTS PUMP OPERATOR Ot M54.41 LUMBAGO WITH SCIATICA, RIGHT SIDE 01/16/2017 MADL, JOSHUA L BYPRODUCTS PUMP OPERATOR Ot M54.41 LUMBAGO WITH SCIATICA, RIGHT SIDE 06/25/2017 Edwin WATTS MD Ot E66.9 OBESITY, UNSPECIFIED 06/25/2017 Edwin WATTS MD Ot I10 ESSENTIAL (PRIMARY) HYPERTENSION 06/25/2017 Edwin WATTS MD Ot I48.1 PERSISTENT ATRIAL FIBRILLATION 06/25/2017 Edwin WATTS MD, Ot Z68.37 BODY MASS INDEX (BMI) 37.0-37.9, ADULT 06/25/2017 Edwin WATTS MD Ot Z79.01 USP (CURRENT) USE OF ANTICOAGULANT 06/25/2017 Edwin WATTS MD Ot Z79.899 OTHER [employer] (CURRENT) DRUG THERAPY 06/29/2017 Edwin WATTS MD Ot E66.9 OBESITY, UNSPECIFIED 06/29/2017 Edwin WATTS MD Ot I10 ESSENTIAL (PRIMARY) HYPERTENSION 06/29/2017 Edwin WATTS MD Ot I48.1 PERSISTENT ATRIAL FIBRILLATION 06/29/2017 Edwin WATTS MD Ot Z68.37 BODY MASS INDEX (BMI) 37.0-37.9, ADULT 06/29/2017 Edwin WATTS MD Ot Z79.01 [employer] (CURRENT) USE OF ANTICOAGULANT 06/29/2017 Edwin WATTS MD, Ot Z79.899 OTHER USP (CURRENT) DRUG THERAPY Procedures There is no data. Results Test [...] urinalysis with reflex to culture NO NRG Methicillin resistant Staphylococcus aureus (MRSA) screening culture - 08:04 Methicillin resistant Staphylococcus aureus (MRSA) screening culture NEG NRG Encounters ACCT No. Visit Date/Time Discharge Status Pt. Type Provider Facility Loc./Unit Complaint [id number] 06/24/2017 07:38:00 06/24/2017 23:59:59 CLS Outpatient Edwin WATTS MD [facility] CATH AF [id number] 12/30/2016 09:21:00 12/30/2016 23:59:59 CLS Outpatient JOSHUA LINO BYPRODUCTS PUMP OPERATOR [facility] RAD M54.41 [id number] 12/14/2016 15:50:00 12/15/2016 17:40:00 DIS Inpatient ABDIAZIZ ANTONIO DO [facility] ICU AFIB W/ RVR [id number] 09/11/2015 09:39:00 09/11/2015 23:59:59 CLS Outpatient CLAUDIO STEVENS MD [facility] RAD LOW BACK PAIN,RT HIP PAIN [id number] 07/30/2015 14:13:00 07/30/2015 15:32:00 DIS Outpatient CLAUDIO STEVENS MD [facility] REHAB CERVICALGIA [id number] 06/18/2015 13:32:00 06/18/2015 23:59:59 CLS Outpatient CLAUDIO STEVENS MD [facility] REHAB CERVICALGIA [id number] 03/22/2015 14:29:00 03/22/2015 23:59:59 CLS Outpatient CLAUDIO STEVENS MD [facility] RAD PAIN IN R HIP [id number] 02/25/2015 19:05:00 02/25/2015 22:03:00 DIS Emergency VONDA ALEJANDRA [facility] ER HEAD,LEG PAIN [id number] 12/18/2014 15:44:00 01/01/2015 13:43:00 DIS Outpatient JOSHUA LINO BYPRODUCTS PUMP OPERATOR [facility] REHAB POST STROKE SPEECH/ LANG [id number] 07/08/2017 09:15:00 PEN Preadmit Edwin WATTS MD [facility] CATH AFIB
== END 2017-07-08 09:04 | disposition home or self-care (01) ==
LOC: CATH 08:06
PROVIDERS: ATTEND Internal Medicine Interventional Cardiology
DX: I48.91 Unspecified atrial fibrillation (principal); I11.0 Hypertensive heart disease with heart failure; I50.9 Heart failure, unspecified; E66.9 Obesity, unspecified; Z68.37 Body mass index [BMI] 37.0-37.9, adult; Z79.01 Long term (current) use of anticoagulants; Z79.899 Other long term (current) drug therapy; Z86.73 Personal history of transient ischemic attack (TIA), and cerebral infarction without residual deficits
CPT/HCPCS: 93005

== ENCOUNTER 2020-03-29 18:08 | Emergency (ER) | payer MEDICAID, OTHER ==
[~2020-03-29] VITALS: Ht 180.3 cm; Wt 108.8 kg
[~2020-03-29 18:08] MED LIST changes: +AMLO-251; +AMLO-251 PO; -AMLO10TA2; -AMLO10TA2 PO; +ASPI-1238 PO; -ASPI-983 PO; -HYDR-3812 PO; -RIVA20TA PO; +RIVA20TA2 PO
[2020-03-29 18:09] VITALS: BP 126/110
--- NOTE | 2020-03-29 18:32 | Diagnostic Imaging Report ---
Chest 1 view, AP/PA only Indication: STROKE, right-sided deficits. Comparison: 12/15/2016. Findings: Bilateral ill-defined pulmonary opacities obscure the central vasculature. No pleural effusion or pneumothorax. Heart is enlarged and there is a loop recorder device in place. Impression: Central pulmonary opacities are most suggestive of pulmonary edema. Dictated by: Dictated on workstation # [id number]
--- NOTE | 2020-03-29 18:33 | Diagnostic Imaging Report ---
PROCEDURE: CT head w/o r/o stroke. TECHNIQUE: Multiple contiguous axial images were obtained through the brain without the use of intravenous contrast. Auto Exposure Controls were utilized during the CT exam to meet ALARA standards for radiation dose reduction. INDICATION: Right-sided deficit. COMPARISON: Prior study from 02/25/2015. FINDINGS: The ventricles are normal in size, shape and position. There are encephalomalacia changes involving the left posterior parietal lobe extending over the convexity. There are encephalomalacia changes involving both occipital lobes. There is no acute parenchymal hemorrhage, edema or mass. There is no extra-axial mass or hemorrhage. IMPRESSION: There are changes consistent with prior infarcts with no acute abnormality seen and no significant change from prior study from 02/25/2015. Dictated by: Dictated on workstation # [id number]
[2020-03-29 18:35] LABS: BASOPHILS % (AUTO) 0 % (0-10); EOSINOPHILS # (AUTO) 0.1 10^3/uL (0.0-0.3); EOSINOPHILS % (AUTO) 1 % (0-10); HEMATOCRIT 43 % (40-54); HEMOGLOBIN 14.5 g/dL (13.3-17.7); LYMPHOCYTES # (AUTO) 1.1 10^3/uL (1.0-4.0); LYMPHOCYTES % (AUTO) 14 % (12-44); MEAN CORPUSCULAR HEMOGLOBIN 30 pg (25-34); MEAN CORPUSCULAR HGB CONC 34 g/dL (32-36); MEAN CORPUSCULAR VOLUME 91 fL (80-99); MEAN PLATELET VOLUME 11.5 fL (9.0-12.2); MONOCYTES # (AUTO) 0.9 10^3/uL (0.0-1.0); MONOCYTES % (AUTO) 12 % (0-12); NEUTROPHILS # (AUTO) 5.7 10^3/uL (1.8-7.8); NEUTROPHILS % (AUTO) 72 % (42-75); PLATELET COUNT 224 10^3/uL (130-400); WHITE BLOOD COUNT 7.9 10^3/uL (4.3-11.0)
[2020-03-29 18:49] LABS: FIBRIN DEGRADATION PRODUCTS 3.86 UG/ML (0.00-0.49); INR 1.2 (0.8-1.4); PROTHROMBIN TIME PATIENT 15.3 SEC (12.2-14.7)
--- NOTE | 2020-03-29 18:50 | ED Neurological Problem ---
General Chief Complaint: Neuro-Stroke Like Symptoms Stated Complaint: STROKE Nursing Triage Note: Pt to ED via EMS for stroke-like symptoms. Sister reports last known well time of 170. Pt found by sister at 1725. Sister reports pt stopped taking meds approximately one month ago. Pt has hx of stroke. Nursing Sepsis Screen: No Definite Risk Source: patient, family (sister), EMS Exam Limitations: clinical condition (DENICE ALVARENGA) History of Present Illness Date Seen by Provider: Mar 29, 2020 Time Seen by Provider: 18:07 Initial Comments Pt to ER by EMS from home with right sided paralysis. LKWT 1705. Sister noted profound weakness and right facial droop. She says from looking at his pill bottles he has been off of his meds for at least a month. The pt denies that he takes blood thinners or Xarelto per the med list. He presently has limited ability to communicate and can state he knows where he is but not actually nominate the place or items he sees. Residual deficits there is some weakness right compared to left but he walks daily and works out daily. Left handed at baseline. Speaks normally. First stroke 2009 affected his right peripheral vision. 2015 stroke affected speech and aphasia but he recovered this completely. Sees Edwin at [facility] and Dr Milo Schneider. He has made it clear to his sister that he wishes to be a DNR. He told his sister that he doesn't take the meds because he doesn't feel he needs them. (DENICE ALVARENGA) Allergies and Home Medications Allergies Coded Allergies: No Known Drug Allergies (Unverified , 02/25/15) Home Medications Acetaminophen 500 Mg Tablet, 500 MG PO PRN, (Reported) Amlodipine Besylate 10 Mg Tablet, 10 MG PO DAILY, (Reported) Baclofen 10 Mg Tablet, 20 MG PO TID PRN for MUSCLE SPASMS, (Reported) Carvedilol 25 Mg Tablet, 25 MG PO BID, (Reported) Diltiazem HCl 240 Mg Cap.er.24h, 240 MG PO DAILY, (Reported) Gabapentin 100 Mg Capsule, 200 MG PO TID, (Reported) TAKES 2 (100 MG) CAPSULES Hydralazine HCl 100 Mg Tablet, 100 MG PO BID, (Reported) Hydrocodone Bit/Acetaminophen 1 Each Tablet, 1 EACH PO Q6H PRN for PAIN-MILD, (Reported) Magnesium Oxide 400 Mg Capsule, 400 MG PO DAILY, (Reported) Potassium Gluconate 99 Mg Tablet, 99 MG PO DAILY, (Reported) Rivaroxaban 20 Mg Tablet, 20 MG PO DAILY, (Reported) Patient Home Medication List Home Medication List Reviewed: Yes (Pt declines taking anything for at least a month. ) (DENICE ALVARENGA) Review of Systems Review of Systems Constitutional: see HPI (limited 2/2 severe aphasia. ); No fever, No malaise; weakness Eyes: Blindness (baseline right eye); Denies Blurred Vision Ears, Nose, Mouth, Throat: denies ear pain, denies nose pain Respiratory: No cough, No short of breath Cardiovascular: No no symptoms reported, No Hx of Intervention Gastrointestinal: No abdominal pain, No nausea, No vomiting Genitourinary: No discharge, No dysuria Musculoskeletal: No back pain, No joint pain (DENICE ALVARENGA) All Other Systems Reviewed Negative Unless Noted: Yes (DENICE ALVARENGA) Past Gwqdhfn-Ymdfzw-Kiofvq Hx Patient Social History Alcohol Use: Denies Use Number of Drinks Today: EE Alcohol Beverage of Choice: [place], Scotch Recreational Drug Use: No Smoking Status: Unknown if Ever Smoked 2nd Hand Smoke Exposure: No Recent Foreign Travel: No Contact w/Someone Who Travel: No Recent Infectious Disease Expo: No Recent Hopitalizations: No (DENICE ALVARENGA) Seasonal Allergies Seasonal Allergies: No (DENICE ALVARENGA) Past Medical History Surgeries: Yes (finger, achillies,) Orthopedic Respiratory: No Cardiac: Yes Atrial Fibrillation, Hypertension Neurological: Yes Stroke Genitourinary: No Gastrointestinal: No Musculoskeletal: Yes Chronic Back Pain Endocrine: No HEENT: No Cancer: No Psychosocial: No Integumentary: No Blood Disorders: No Adverse Reaction/Blood Tranf: No (DENICE ALVARENGA) Family Medical History No Pertinent Family Hx (DENICE ALVARENGA) Physical Exam Vital Signs Vital Signs - First Documented 03/29/20 03/29/20 18:09 18:20 Temp 36.9 Pulse 81 Resp 20 B/P (MAP) 126/110 Pulse Ox 95 O2 Delivery Room Air O2 Flow Rate 2.00 FiO2 92 (NATALIE JIMENEZ APRN) Vital Signs Capillary Refill : Less Than 3 Seconds (DENICE ALVARENGA) Height, Weight, BMI Height: 5'10.00" Weight: 258lbs. 15.0oz. [id number]; 33.00 BMI Method:Stated General Appearance: WD/WN, moderate distress HEENT: No PERRL/EOMI (difficulty with right eye upper and outward gaze. ); normal ENT inspection, TMs normal, pharynx normal Neck: No full range of motion, No normal inspection Respiratory: No lungs clear, No normal breath sounds, No no respiratory distress, No no accessory muscle use Cardiovascular: No normal peripheral pulses, No no edema; tachycardia (140), irregularly irregular Peripheral Pulses: 2+ Radial Pulses (R), 2+ Radial Pulses (L) Gastrointestinal: non tender, soft Neurologic/Psychiatric: alert, normal mood/affect, other (oriented to person and unable to articulate time or place. GCS 15) Crainal Nerves: normal hearing; No normal speech; PERRL, abnormal speech Coordination/Gait: normal finger to nose Motor/Sensory: sensory deficit (RUE no sensation), weak motor strength RUE, weak motor strength RLE Skin: normal color, warm/dry (DENICE ALVARENGA) Stroke Onset of Symptoms Date of Onset of Symptoms: Mar 29, 2020 Time of Symptom Onset: 17:05 Onset of Symptoms: Yes Symptoms onset unknown: No (DENICE ALVARENGA) NIH Stroke Scale Assessment Select: Initial Level of Consciousness: 2=By repeated stimulation (2), Level of Consciousness-Questions: 0=Answers both month/age (0), LOC Commands: 0=Performs both tasks (0), Gaze: Partial Gaze Palsy (1), Visual Castillo: 1=Partial hemianopia (1), Facial Movement (Facial Paresis): 2=Partial paralysis (2), Motor Function-Arms Right: 4=No movement (4), Motor Function- Arms Left: 0=No drift (0), Motor Function-Legs Right: 4=No movement (4), Motor Function-Legs Left: 0=No drift (0), Limb Ataxia: 0=Absent (0), Sensory: 1=Mild to Moderate loss (1), Best Language: 2=Severe aphasia (2), Dysarthria: 1=Mild to moderate loss (1), Extinction & Inattention: 0=No abnormality (0), Total: 18 Stroke Thrombolytic Exclusion Age 18 or Over: Yes Acute intenal hemorrhage: No History of CVA: Yes Uncontrolled Coagulation Defec: No Intracranial Hemorrhage: No Severe Hypertension: No GI or Bleed: No Subarachnoid Hemorrhage: No Intracranial Neoplasm/Aneurysm: No Oral Anticoagulants: No Surgery or Trauma: No Puncture of Non-Compressible V: No Recent CPR: No Diabetic Hemorrhagic Retinopat: No Organ Biopsy: No Recent Obstetric Delivery: No Glucose: No (96) Significant Hepatic Dysfunctio: No NIH Stoke Scale >22: No Bacterial Endocarditis: No Pericarditis: No Improving Symptoms: No Platelets: No (224) TPA Contraindication: No (DENICE ALVARENGA) IV - TPa Received IV - TPa Procedure Performed?: Yes IV - TPa Date: Mar 29, 2020 IV - TPa Time: 18:56 (DENICE ALVARENGA) Progress/Results/Core Measures Results/Orders Lab Results Laboratory Tests Test 03/29/20 18:12 03/29/20 18:28 03/29/20 18:50 Range/Units Glucometer 96 70-110 MG/DL White Blood Count 7.9 4.3-11.0 10^3/uL Red Blood Count 4.77 4.30-5.52 10^6/uL Hemoglobin 14.5 13.3-17.7 g/dL Hematocrit 43 40-54 % Mean Corpuscular Volume 91 80-99 fL Mean Corpuscular Hemoglobin 30 25-34 pg Mean Corpuscular Hemoglobin Concent 34 32-36 g/dL Red Cell Distribution Width 13.2 10.0-14.5 % Platelet Count 224 130-400 10^3/uL Mean Platelet Volume 11.5 9.0-12.2 fL Immature Granulocyte % (Auto) 0 % Neutrophils (%) (Auto) 72 42-75 % Lymphocytes (%) (Auto) 14 12-44 % Monocytes (%) (Auto) 12 0-12 % Eosinophils (%) (Auto) 1 0-10 % Basophils (%) (Auto) 0 0-10 % Neutrophils # (Auto) 5.7 1.8-7.8 10^3/uL Lymphocytes # (Auto) 1.1 1.0-4.0 10^3/uL Monocytes # (Auto) 0.9 0.0-1.0 10^3/uL Eosinophils # (Auto) 0.1 0.0-0.3 10^3/uL Basophils # (Auto) 0.0 0.0-0.1 10^3/uL Immature Granulocyte # (Auto) 0.0 0.0-0.1 10^3/uL Prothrombin Time 15.3 H 12.2-14.7 SEC INR Comment 1.2 0.8-1.4 Activated Partial Thromboplast Time 36 H 24-35 SEC D-Dimer 3.86 H 0.00-0.49 UG/ML Sodium Level 141 135-145 MMOL/L Potassium Level 4.0 3.6-5.0 MMOL/L Chloride Level 107 98-107 MMOL/L Carbon Dioxide Level 20 L 21-32 MMOL/L Anion Gap 14 5-14 MMOL/L Blood Urea Nitrogen 12 7-18 MG/DL Creatinine 1.07 0.60-1.30 MG/DL Estimat Glomerular Filtration Rate > 60 BUN/Creatinine Ratio 11 Glucose Level 105 70-105 MG/DL Calcium Level 9.2 8.5-10.1 MG/DL Corrected Calcium 9.1 8.5-10.1 MG/DL Total Bilirubin 0.8 0.1-1.0 MG/DL Aspartate Amino Transf (AST/SGOT) 23 5-34 U/L Alanine Aminotransferase (ALT/SGPT) 23 0-55 U/L Alkaline Phosphatase 78 40-136 U/L Troponin I < 0.028 <0.028 NG/ML Total Protein 7.2 6.4-8.2 GM/DL Albumin 4.1 3.2-4.5 GM/DL Urine Color YELLOW Urine Clarity CLEAR Urine pH 6.0 5-9 Urine Specific Ripton 1.010 L 1.016-1.022 Urine Protein TRACE H NEGATIVE Urine Glucose (UA) NEGATIVE NEGATIVE Urine Ketones 1+ H NEGATIVE Urine Nitrite NEGATIVE NEGATIVE Urine Bilirubin NEGATIVE NEGATIVE Urine Urobilinogen 0.2 < = 1.0 MG/DL Urine Leukocyte Esterase NEGATIVE NEGATIVE Urine RBC (Auto) NEGATIVE NEGATIVE Urine RBC NONE /HPF Urine WBC NONE /HPF Urine Squamous Epithelial Cells NONE /HPF Urine Crystals NONE /LPF Urine Bacteria NEGATIVE /HPF Urine Casts NONE /LPF Urine Mucus NEGATIVE /LPF Urine Culture Indicated NO (NATALIE JIMENEZ APRN) My Orders Orders - NATALIE JIMENEZ APRN Metoprolol Tartrate Injection (Lopressor (03/29/20 21:15) (NATALIE JIMENEZ APRN) Medications Given in ED Current Medications Medications Dose Ordered Sig/Mauro Route Start Time Stop Time Status Last Admin Dose Admin Alteplase, Recombinant 90 mg ONCE ONCE IV 03/29/20 19:15 03/29/20 19:16 DC 03/29/20 19:18 90 MG Iohexol 150 ml ONCE ONCE IV 03/29/20 20:30 03/29/20 20:31 DC 03/29/20 20:25 125 ML Metoprolol Tartrate 5 mg ONCE ONCE IV 03/29/20 19:15 03/29/20 19:16 DC 03/29/20 19:24 5 MG Metoprolol Tartrate 5 mg ONCE ONCE IV 03/29/20 21:00 03/29/20 21:01 DC 03/29/20 21:09 5 MG Sodium Chloride 100 ml ONCE ONCE IV 03/29/20 20:30 03/29/20 20:31 DC 03/29/20 20:25 80 ML (NATALIE JIMENEZ APRN) Vital Signs/I&O 03/29/20 03/29/20 03/29/20 18:09 18:09 18:20 Temp 36.9 Pulse 81 81 Resp 20 20 B/P (MAP) 126/110 126/110 (115) Pulse Ox 95 95 O2 Delivery Room Air FI02 O2 Flow Rate 2.00 FiO2 92 (NATALIE JIMENEZ APRN) Blood Pressure Mean: 115 FSBG Bedside Testing Finger Stick Blood Glucose: 96 Blood Glucose Action Taken: dana notified (DENICE ALVARENGA) Progress Progress Note #1: Time: 18:30 Progress Note Appears to be an ischemic stroke. Talked to Dr Jaffe, Neurologist business intelligence consultant at [facility]. She agrees to TPA. Progress Note #2: Time: 18:59 Progress Note Still tacky with HR 140s and Systolic 164. Called Dr Jaffe about how best to rate control the AFib without needlessly lowering BP. She recs BBs CTA Head and neck and perfusion scan. Progress Note #3: Time: 20:56 Progress Note The patient had a couple beats of nonsustained ventricular tachycardia 5 beats at the most. Gave a gram of magnesium. He still denying any chest pain or discomfort. On reexamination his NIH score is still 18 points. TPA is going. Another EKG was performed and we gave another 5 mg of metoprolol IV. Lead 2 he had a 5 beat run at 2053. (DENICE ALVARENGA) Initial ECG Impression Date: Mar 29, 2020 Initial ECG Impression Time: 18:26 Initial ECG Rate: 145 Initial ECG Rhythm: A Fib/Flutter Initial ECG Intervals: QT (454) Initial ECG Impression: Atrial Fibrillation w/RVR Initial ECG Comparisson: Changed Comment afib with RVR and No St elevation or depression. EKG : EKG Time: 20:51 Rate: 148 Rhythm: A Fib/Flutter Intervals: QT (501) ECG Comparisson: Changed ECG Impression: Atrial Fibrillation w/RVR Comment Atrial fibrillation with 2 beats of NSVT. (DENICE ALVARENGA) Diagnostic Imaging Diagonstic Imaging: Xray Plain Films/CT/US/NM/MRI: chest Comments [facility] [place] [place] NAME: JAYSHREE GORDON [facility] REC#: [id number] PT STATUS: REG ER : 1960 PHYSICIAN: DENICE ALVARENGA MD ADMIT DATE: 03/29/20/ER Draft Date of Exam:03/29/20 CHEST 1 VIEW, AP/PA ONLY Chest 1 view, AP/PA only Indication: STROKE, right-sided deficits. Comparison: 12/15/2016. Findings: Bilateral ill-defined pulmonary opacities obscure the central vasculature. No pleural effusion or pneumothorax. Heart is enlarged and there is a loop recorder device in place. Impression: Central pulmonary opacities are most suggestive of pulmonary edema. Dictated on workstation # [id number] Dict: 03/29/204 Trans: 03/29/20 183 [facility] [id number] Interpreted by: CRUZ CONDON MD Electronically signed by: Reviewed: Reviewed by Me Diagonstic Imaging: CT Plain Films/CT/US/NM/MRI: head Comments [facility] [place] [place] NAME: JAYSHREE GORDON [facility] REC#: [id number] PT STATUS: REG ER : 1960 PHYSICIAN: DENICE ALVARENGA MD ADMIT DATE: 03/29/20/ER Signed Date of Exam:03/29/20 CT HEAD WO-R/O STROKE PROCEDURE: CT head w/o r/o stroke. TECHNIQUE: Multiple contiguous axial images were obtained through the brain without the use of intravenous contrast. Auto Exposure Controls were utilized during the CT exam to meet ALARA standards for radiation dose reduction. INDICATION: Right-sided deficit. COMPARISON: Prior study from 02/25/2015. FINDINGS: The ventricles are normal in size, shape and position. There are encephalomalacia changes involving the left posterior parietal lobe extending over the convexity. There are encephalomalacia changes involving both occipital lobes. There is no acute parenchymal hemorrhage, edema or mass. There is no extra-axial mass or hemorrhage. IMPRESSION: There are changes consistent with prior infarcts with no acute abnormality seen and no significant change from prior study from 02/25/2015. Dictated by: Dictated on workstation # [id number] Dict: 03/29/20 182 Trans: 03/29/201848 [facility] [id number] Interpreted by: KORINA CARRASQUILLO MD Electronically signed by: KORINA CARRASQUILLO MD 03/29/201848 Reviewed: Reviewed by Ny Diagonstic Imaging: CT (angio) Plain Films/CT/US/NM/MRI: head (neck) Comments [facility] [place] [place] NAME: JAYSHREE GORDON [facility] REC#: [id number] PT STATUS: REG ER : 1960 PHYSICIAN: DENICE ALVARENGA MD ADMIT DATE: 03/29/20/ER Signed Date of Exam:03/29/20 CT ANGIO HEAD/NECK PROCEDURE: CT angiography of the head and CT angiography of the neck with and without contrast. TECHNIQUE: Contiguous noncontrast images were obtained from the skull base through the vertex. After intravenous contrast administration, helical CT angiography of the neck was performed. Source data was reformatted into 3D MIP projections. Delayed post contrast acquisition was also obtained. Auto Exposure Controls were utilized during the CT exam to meet ALARA standards for radiation dose reduction. INDICATION: Strokelike symptoms. Change in mental status. History of stroke. FINDINGS: The origins of the brachiocephalic vessels are widely patent. There is flow in both vertebral arteries. There is a small amount of calcified plaque at the carotid bifurcation on the left. No significant vessel irregularity or stenosis is seen on either side. The distal internal carotid arteries are widely patent. Intracranial views show patent basilar artery. The anterior cerebral and middle cerebral arteries are widely patent. There is no evidence for aneurysm, AVM, neovascularity or major vessel occlusion. There is a large area of encephalomalacia involving the left posterior parietal lobe with some involvement of the left occipital lobe. There are changes of prior infarct involving the right occipital lobe. There is no acute parenchymal hemorrhage, edema, mass or abnormal parenchymal enhancement. There is no extra-axial mass or hemorrhage. IMPRESSION: 1. CT angiography of the neck shows mild disease at the carotid bifurcation on the left with no hemodynamically significant abnormality. 2. CT angiography of the intracranial vessels shows changes of prior infarct. No acute abnormality is evident. Dictated by: Dictated on workstation # [id number] Dict: 03/29/202041 Trans: 03/29/202114 [facility] [phone] Interpreted by: KORNIA CARRASQUILLO MD Electronically signed by: KORINA CARRASQUILLO MD 03/29/202114 ADDENDUM REPORT Addendum/ Impression: There is occlusion at the M1 segment of the left middle cerebral artery. Distal to the trifurcation the left middle cerebral arteries in the sylvian fissure appear patent. Dictated by: Dictated on workstation # [id number] Interpreted by: KORINA CARRASQUILLO MD Electronically signed by: KORINA CARRASQUILLO MD 03/29/202128 Reviewed: Reviewed by Ny Diagonstic Imaging: CT (perfusion scan) Plain Films/CT/US/NM/MRI: head Comments [facility] [place] [place] NAME: JAYSHREE GORDON [facility] REC#: [id number] PT STATUS: REG ER : 1960 PHYSICIAN: DENICE ALVARENGA MD ADMIT DATE: 03/29/20/ER Signed Date of Exam:03/29/20 CT HEAD PERFUSION W/ CONTRAST INDICATION: 59-year-old male with strokelike symptoms. Last known well at 1705 hours. COMPARISON: CT head 03/29/2020. TECHNIQUE: Postcontrast CT brain perfusion was performed using the dual slab technique. Postprocessing was performed using the rapid software. FINDINGS: The volume of brain parenchyma showing cerebral blood flow of less than 30% is 71 mL and the volume of brain parenchyma showing a T-Max greater than 6 seconds is 197 mL. The mismatch volume is 126 mL which corresponds to potential viable penumbra. Mismatch ratio is 2.8. A significant portion of this penumbra is severely threatened towards a completed infarct given the Tmax of greater than 10 seconds volume at 124 mL. The MIP images correspond with the CTA which does show a left MCA M1 occlusion. As noted on CT, there is also an old left parietal infarct. IMPRESSION: CT brain perfusion does show viable penumbra of approximately 126 mL in the left frontoparietal region. In addition, there appears to be a left MCA M1 occlusion corresponding to the CT angiography. Patient may potentially be a candidate for intra-arterial stroke intervention. Dictated by: Dictated on workstation # [id number] Dict: 03/29/202119 Trans: 03/29/202199 [facility] [id number] Interpreted by: PEPE HO MD Electronically signed by: PEPE HO MD 03/29/202199 Reviewed: Reviewed by Me (DENICE ALVARENGA) Departure Communication (Admissions) 2014- spoke with Dr. Devries from cardiology at the [facility] in regards to the patient's atrial fibrillation with Ventricular response and a brief run about 5 beats of ventricular tachycardia. Patient is not on Cardizem drip per neurology recommendation as this may due to hypotension which could worsen CVA symptoms. We have done 2 doses of IV Lopressor. Does not recommend amiodarone as we not want to risk cardioversion and propagate additional stroke if he has a left apical thrombus. As such increasing beta- evan dosages would be the recommendation to suppress the ventricle tachycardia without inducing hypotension. 2124-Given tachyarrhythmia, will transport by air. (NATALIE JIMENEZ APRN) Impression Primary Impression: CVA (cerebral vascular accident) Qualified Codes: I63.9 - Cerebral infarction, unspecified Additional Impressions: Tachyarrhythmia Atrial fibrillation with rapid ventricular response Disposition: XF [facility] HOSP Condition: Stable Transfer Transfer Reason: Exceeds level of care (diversion) Time Spoke to Accepting Phy: 20:[address] Jaffe, Stroke Neurologist review consultant accepts the patient to [facility]. Transfer Time: 21:40 Transfer Facility: [facility] Method of Transfer: Air (DENICE ALVARENGA) Departure-Patient Inst. Referrals: MANUEL STARK DO (PCP) Primary Care Physician JOSHUA LINO (Family) Primary Care Physician DENICE ALVARENGA Mar 29, 2020 18:50 NATALIE JIMENEZ APRN Mar 29, 2020 21:17
[2020-03-29] MEDS ORDERED: ALTEPLASE 100 MG/VIAL (ACTIVASE) ONE (18:54)
[2020-03-29 18:58] LABS: ALANINE AMINOTRANSFERASE 23 U/L (0-55); ALBUMIN 4.1 GM/DL (3.2-4.5); ALKALINE PHOSPHATASE 78 U/L (40-136); BILIRUBIN,TOTAL 0.8 MG/DL (0.1-1.0); BUN/CREATININE RATIO 11; CALCIUM 9.2 MG/DL (8.5-10.1); CARBON DIOXIDE 20 MMOL/L (21-32); CHLORIDE 107 MMOL/L (98-107); CREATININE SERUM 1.07 MG/DL (0.60-1.30); GFR ESTIMATED > 60; GLUCOSE 105 MG/DL (70-105); SODIUM 141 MMOL/L (135-145); TOTAL PROTEIN 7.2 GM/DL (6.4-8.2)
[2020-03-29 18:59] LABS: BILIRUBIN,URINE NEGATIVE (NEGATIVE); CLARITY,URINE CLEAR; COLOR,URINE YELLOW; GLUCOSE, URINE (UA) NEGATIVE (NEGATIVE); KETONES,URINE 1+ (NEGATIVE); LEUKOCYTE ESTERASE ,URINE NEGATIVE (NEGATIVE); NITRITE,URINE NEGATIVE (NEGATIVE); PROTEIN,URINE TRACE (NEGATIVE)
[2020-03-29 19:04] LABS: BACTERIA,URINE NEGATIVE /HPF
[2020-03-29] MEDS ORDERED: meTOprolol 5 MG/5 ML (LOPRESSOR) VIAL IV ONE ×3 (19:15→21:15)
[2020-03-29] MEDS ORDERED: ALTEPLASE 100 MG/VIAL (ACTIVASE) IV ONE (19:15)
[2020-03-29] MEDS ORDERED: IOHEXOL 350 MG/ML 150 ML (OMNIPAQUE 350) VIAL IV ONE (20:30)
[2020-03-29] MEDS ORDERED: HOLD METFORMIN - RECEIVED CONTRAST 20 ML VIAL IV SCH (20:30)
[2020-03-29] MEDS ORDERED: NS 100 ML (IVPB) BAG IV ONE (20:30)
--- NOTE | 2020-03-29 20:51 | Diagnostic Imaging Report ---
PROCEDURE: CT angiography of the head and CT angiography of the neck with and without contrast. TECHNIQUE: Contiguous noncontrast images were obtained from the skull base through the vertex. After intravenous contrast administration, helical CT angiography of the neck was performed. Source data was reformatted into 3D MIP projections. Delayed post contrast acquisition was also obtained. Auto Exposure Controls were utilized during the CT exam to meet ALARA standards for radiation dose reduction. INDICATION: Strokelike symptoms. Change in mental status. History of stroke. FINDINGS: The origins of the brachiocephalic vessels are widely patent. There is flow in both vertebral arteries. There is a small amount of calcified plaque at the carotid bifurcation on the left. No significant vessel irregularity or stenosis is seen on either side. The distal internal carotid arteries are widely patent. Intracranial views show patent basilar artery. The anterior cerebral and middle cerebral arteries are widely patent. There is no evidence for aneurysm, AVM, neovascularity or major vessel occlusion. There is a large area of encephalomalacia involving the left posterior parietal lobe with some involvement of the left occipital lobe. There are changes of prior infarct involving the right occipital lobe. There is no acute parenchymal hemorrhage, edema, mass or abnormal parenchymal enhancement. There is no extra-axial mass or hemorrhage. IMPRESSION: 1. CT angiography of the neck shows mild disease at the carotid bifurcation on the left with no hemodynamically significant abnormality. 2. CT angiography of the intracranial vessels shows changes of prior infarct. No acute abnormality is evident. Dictated by: Dictated on workstation # [id number]
--- NOTE | 2020-03-29 20:54 | NUR ---
CALLED REPORT TO ROLANDO FALK AT [facility]
[2020-03-29] MEDS ORDERED: MAGNESIUM 1 GM/100 ML IVPB 100 ML IV ONE (21:00)
--- NOTE | 2020-03-29 21:10 | NUR ---
SPOKE WITH PATIENTS SISTER AND LET HER KNOW HE IS TRANSFERING TO [facility]
--- NOTE | 2020-03-29 21:35 | NUR ---
LET ROLANDO FALK FROM KNOW PATIENT IS NOW TRANSFERING BY [facility]
--- NOTE | 2020-03-29 21:38 | Diagnostic Imaging Report ---
INDICATION: 59-year-old male with strokelike symptoms. Last known well at 1705 hours. COMPARISON: CT head 03/29/2020. TECHNIQUE: Postcontrast CT brain perfusion was performed using the dual slab technique. Postprocessing was performed using the rapid software. FINDINGS: The volume of brain parenchyma showing cerebral blood flow of less than 30% is 71 mL and the volume of brain parenchyma showing a T-Max greater than 6 seconds is 197 mL. The mismatch volume is 126 mL which corresponds to potential viable penumbra. Mismatch ratio is 2.8. A significant portion of this penumbra is severely threatened towards a completed infarct given the Tmax of greater than 10 seconds volume at 124 mL. The MIP images correspond with the CTA which does show a left MCA M1 occlusion. As noted on CT, there is also an old left parietal infarct. IMPRESSION: CT brain perfusion does show viable penumbra of approximately 126 mL in the left frontoparietal region. In addition, there appears to be a left MCA M1 occlusion corresponding to the CT angiography. Patient may potentially be a candidate for intra-arterial stroke intervention. Dictated by: Dictated on workstation # [id number]
--- NOTE | 2020-03-29 21:40 | NUR ---
CALLED SISTER AGAIN TO TELL HER WE ARE TRANSFERING BY [facility] NOW
[2020-03-29 22:17] VITALS: BP 133/118
== END 2020-03-29 22:15 | disposition short-term general hospital (02) ==
LOC: EDUNIT# 18:08 → ER 18:09
DX: I63.9 Cerebral infarction, unspecified (principal); I48.91 Unspecified atrial fibrillation; I10 Essential (primary) hypertension; G89.29 Other chronic pain; Z79.891 Long term (current) use of opiate analgesic; Z79.01 Long term (current) use of anticoagulants
CPT/HCPCS: 0042T; 51702; 70450; 70496; 70498; 71045; 80053; 81000; 82962; 84484; 85025; 85379; 85610; 85730; 92977; 93005; 93041; 99291; 36415

== ENCOUNTER 2020-04-10 14:20 | Inpatient (IN) | payer OTHER ==
[~2020-04-10] VITALS: Ht 167 cm; Wt 76.7 kg
--- NOTE | 2020-04-10 11:10 | NUR ---
MED REC WAS ENTERED USING THE DISCHARGE- AFTER MEDICATIONS ARE CONTINUED (AND PT ARRIVES) I WILL SPEAK WITH THE PT AND MAKE ANY CHANGES TO THE MED REC/NOTES IF NEEDED Addendum: 04/17/20 at 1036 by STANLEY SIERRA [facility] SPOKE WITH THE PT- HE LET ME KNOW I SHOULD CALL HIS SISTER (KATELYN) TO GET ANY INFORMATION REGARDING HIS MEDICATIONS I SPOKE WITH KATELYN AND CALLED [facility] TO UPDATE THE MED REC TO WHAT THE PT WAS TAKING PRIOR TO MEDICATIONS THAT WERE REMOVED FROM THE MED REC DUE TO PT NOT TAKING PRIOR TO : ELIQUIS 5MG ASPIRIN 81MG ATORVASTATIN 40MG BISOPROLOL 5MG FUROSEMIDE 20MG LOSARTAN 50MG SPIRONOLACTONE 25MG MEDICATIONS THAT HAVE BEEN CHANGED: WANTED PT TO CONTINUE AMLODIPINE 5MG BUT DID SAY IT HAD BEEN CHANGED. PRIOR TO PT WAS TAKING AMLODIPINE 10MG LAST FILLED 12-31-2019 #30 MEDICATIONS THAT WERE ADDED TO THE MED REC DUE TO PT TAKING PRIOR TO (ALL THE FOLLOWING WERE DISCONTINUED BY ): CARVEDILOL 50MG BID (PT WAS TAKING TWO 25MG TABS) LAST FILLED 01-10-2020 #120/30DS DILTIAZEM CD 240MG LAST FILLED 12-17-2019 #90/90DS FLECAINIDE 50MG LAST FILLED 10-18-2019 #90/90DS HYDRALAZINE 100MG LAST FILLED 12-04-2019 #90/30DS XARELTO 10MG LAST FILLED 01-10-2020 #30/30DS KATELYN DID INDICATE THE PT WAS NON-COMPLIANT WITH HIS MEDICATIONS. PRIOR TO HIS ADMRAE ZEPEDA THOUGHT IT HAD BEEN SEVERAL WEEKS SINCE HE HAD TAKEN ANY OF HIS MEDS.
[~2020-04-10 14:20] MED LIST changes: +ACETAMINOPHEN 500 MG TAB (TYLENOL) PO PRN; +AMLO-250 PO; +ASPI-999 PO; +ATOR40TA70 PO; +BISACODYL 10 MG SUPP (DULCOLAX) PR PRN; +CALCIUM CARBONATE 500 MG (TUMS) TAB.CHEW PO PRN; +DOCUSATE SODIUM 100 MG (COLACE) CAP PO PRN; +FLEET ENEMA ADULT 1 EA BTL PR PRN; +FURO-125 PO; +LOPERAMIDE 2 MG (IMODIUM) TABLET PO PRN; +LOSA50TA63 PO; +MELATONIN 3 MG TABLET PO PRN; +NF-BISOP5 PO; +ONDANSETRON 4 MG (ZOFRAN) ORAL DISSOLVE TAB PO PRN; +SPIR25TA PO; +diphenhydrAMINE 25 MG TAB (BENADRYL) PO PRN; +guaiFENesin/CODEINE (ROBITUSSIN AC) 10ML UDC PO PRN
--- NOTE | 2020-04-10 14:39 | NUR ---
JAYSHREE GORDON admitted to room , with an admitting diagnosis of , on from via , accompanied by STAFF.JAYSHREE GORDON introduced to surroundings, call light, bed controls, phone, TV, temperature control, lights, meal times, smoking policy, visitor policy, side rail policy, bathrooms and showers. Patient Rights given to patient in the handbook.JAYSHREE GORDON verbalizes understanding that [facility] [place] is not responsible for the loss or damage to any personal effects or valuables that are kept in the patients posession during their hospitalization. The following Patient Care Plans were discussed with the PATIENT: Discharge Planning, IMPAIRED MOBILITY,ALTERED COMFORT, and SELF CARE DEFICIT. JAYSHREE GORDON verbalizes understanding of Interdisciplinary Patient Education. Patient and/or family were informed about the Rapid Response Team and its purpose. Patient received Patient Rights Booklet, which includes Privacy Act Statement and Data Collection Information Summary.
[2020-04-10 14:50] VITALS: BP 116/64
[2020-04-10 15:51] VITALS: BP 116/64
--- NOTE | 2020-04-10 16:22 | Physical Therapy Evaluation ---
PT Evaluation-General Medical Diagnosis Admission Date 04/10/20 Medical Diagnosis: CVA Onset Date: Mar 30, 2020 Therapy Diagnosis Therapy Diagnosis: impaired mobility, strength, endurance, balance Height/Weight Height (Feet): 5 Height (Inches): 10.00 Weight (Pounds): 258 Weight (Ounces): 15.0 Precautions Precautions/Isolations: Fall Prevention, Standard Precautions, Pressure Ulcer Referral Physician: [place] Reason for Referral: Evaluation/Treatment Medical History Pertinent Medical History: CVA, HTN Additional Medical History AFIB Reviewed History: Yes Social History Home: Single Level Current Living Status: Entry Into Home: Stairs With Railing PT Steps Into Home: 3 Prior Prior Level of Function SCALE: Activities may be completed with or without assistive devices. 9-Wohgssdpdq-onepweb completes the activity by him/herself with no assistance from a helper. 5-Set-up or Clean-up Assistance-helper sets up or cleans up; patient completes activity. [place] assists only prior to or following the activity. 4-Supervision or Touching Assistance-helper provides verbal cues and/or touching/steadying and/or contact guard assistance as patient completes activity. Assistance may be provided throughout the activity or intermittently. 3-Partial/Moderate Assistance-helper does LESS THAN HALF the effort. [place] lifts, holds or supports trunk or limbs, but provides less than half the effort. 2-Substantial/Maximal Assistance-helper does MORE THAN HALF the effort. [place] lifts or holds trunk or limbs and provides more than half the effort. 1-Rqfhbaced-qeukyh does ALL the effort. Patient does none of the effort to complete the activity. Or, the assistance of 2 or more helpers is required for the patient to complete the activity. If activity was not attempted, code reason: 7-Patient Refused. 9-Not Applicable-not attempted and the patient did not perform the activity before the current illness, exacerbation or injury. 10-Not Attempted due to Environmental Limitations-(lack of equipment, weather restraints, etc.). 88-Not Attempted due to Medical Conditions or Safety Concerns. unknown PT Evaluation-Current Subjective Patient in bed pre tx, agrees to PT, has no complaints of pain. Pt/Family Goals to be independent at home Objective Patient Orientation: Person, Non-Verbal/Aphasic ROM/Strength ROM Lower Extremities WNL Strength Lower Extremities LLE 5/5 gross, RLE 0/5 Neuromuscular (Tone, Coordination, Reflexes) Patient has difficulty following directions but seems to have impaired vision in the right field. Sensory Vision: Hearing: Functional Sensation Right Lower Extremit: Impaired Sensation Left Lower Extremity: Intact Sensation Lower Extremities Patient states he has numbness in right leg. Transfers Roll Left & Right (QC): 2 Sit to Lying (QC): 2 Lying to Sitting/Side of Bed(Q: 2 Sit to Stand (QC): 2 Chair/Miz-lo-Aezqp Xfer(QC): 2 Toilet Transfer (QC): 2 Car Transfer (QC): 2 Patient performs bed mobility and transfers with max assist, car transfer max assist. Patient's right knee mattie and needs blocked during activity, careful patient cues for safety and positioning. Gait Does the Patient Walk?: No and Walking Goal NOT indicated Walk 10 feet (QC): 88 Walk 50 ft with 2 Turns(QC): 88 Walk 150 ft (QC): 88 Walking 10ft/uneven surface-QC: 88 Wheelchair Training Does the Pt Use a Wheelchair?: Yes Wheel 50 ft with 2 turns (QC): 2 Wheel 150 ft (QC): 2 150'x2, patient can help propel with either left leg or arm but will not coordinate them together and needs significant cues to use one limb in the first place Stairs 1 Step (curb) (QC): 88 4 Steps (QC): 88 12 Steps (QC): 88 Balance Sitting Static: Fair Sitting Dynamic: Poor Standing Static: Poor Standing Dynamic: Poor Picking up an Object (QC): 88 Treatment PT worked on bed mobility and transfers, balance and standing in parallel bars, assist with standing and positioning during bathing and dressing, OT worked on bathing and dressing and UE positioning during standing in parallel bars Assessment/Needs Patient has a flaccid right side. Max assist with most mobility. Rehab Potential: Guarded PT Short Term Goals Short Term Goals Time Frame: Apr 18, 2020 Roll Left & Right: 3 Sit to lyin Lying to sitting on side of be: 3 Sit to stand: 3 Chair/knd-xl-ptegq transfer: 3 PT Usp Goals Usp Goals PT Corporate Travel Expert Goals Time Frame: May 02, 2020 Roll Left & Right (QC): 3 (Zoya) Sit to Lying (QC): 3 (Zoya) Lying-Sitting on Side/Bed(QC): 3 (Zoya) Sit to Stand (QC): 3 (Zoya) Chair/Xud-zi-Yllxm Xfer(QC): 3 (Zoya) Toilet Transfer (QC): 3 (Zoya) Car Transfer (QC): 3 (Zoya) Does the Patient Walk: No and Walking Goal NOT indicated Walk 10 feet (QC): 88 Walk 50ft with 2 Turns (QC): 88 Walk 150 ft (QC): 88 Walking 10ft on Uneven Surface: 88 1 Step (curb) (QC): 88 4 Steps (QC): 88 12 Steps (QC): 88 Picking up an Object (QC): 88 Wheel 50 feet with 2 turns (QC: 4 Wheel 150 feet: 4 PT Plan Problem List Problem List: Activity Tolerance, Functional Strength, Safety, Balance, Gait, Transfer, Bed Mobility, ROM Treatment/Plan Treatment Plan: Continue Plan of Care Treatment Plan: Bed Mobility, Education, Functional Activity [place], Functional Strength, Group Therapy, Gait, Safety, Therapeutic Exercise, Transfers Treatment Duration: May 01, 2020 Frequency: At least 5 of 7 days/Wk (IRF) Estimated Hrs Per Day: 1.5 hours per day Patient and/or Family Agrees t: Yes Safety Risks/Education Patient Education: Transfer Techniques, Correct Positioning, W/C Management, Safety Issues Teaching Recipient: Patient Teaching Methods: Demonstration, Discussion Response to Teaching: Reinforcement Needed Discharge Recommendations Plan Patient will perform bed mobility and transfer training, balance and endurance training, functional strengthening, gait training, and education, to improve functional mobility and independence at home. Therapy Discharge Recommendati: 24 Hour Supervision, Other, See Comments (NH) Time/GCodes Time In: 1445 Time Out: 1615 Total Billed Treatment Time: 90 Total Billed Treatment 1 visit EVM 10' FA 80' PT eval from [id number], co-treat from [id number] DARRYL BARTLETT PT Apr 10, 2020 16:22
--- NOTE | 2020-04-10 16:31 | Occupational Therapy Eval ---
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 6-Bwrfnzpixn-qciireo completes the activity by him/herself with no assistance from a helper. 5-Set-up or Clean-up Assistance-helper sets up or cleans up; patient completes activity. [place] assists only prior to or following the activity. 4-Supervision or Touching Assistance-helper provides verbal cues and/or touching/steadying and/or contact guard assistance as patient completes activity. Assistance may be provided throughout the activity or intermittently. 3-Partial/Moderate Assistance-helper does LESS THAN HALF the effort. [place] lifts, holds or supports trunk or limbs, but provides less than half the effort. 2-Substantial/Maximal Assistance-helper does MORE THAN HALF the effort. [place] lifts or holds trunk or limbs and provides more than half the effort. 1-Uvykprlog-svphsd does ALL the effort. Patient does none of the effort to comp lete the activity. Or, the assistance of 2 or more helpers is required for the patient to complete the activity. If activity was not attempted, code reason: 7-Patient Refused. 9-Not Applicable-not attempted and the patient did not perform the activity before the current illness, exacerbation or injury. 10-Not Attempted due to Environmental Limitations-(lack of equipment, weather restraints, etc.). 88-Not Attempted due to Medical Conditions or Safety Concerns. ADL PLOF Comments Pt states he was IND without use of AD through home. Pt lives with other family; due to aphasia, pt unable to express who he lives with. Pt states he did not drive nor work prior to this stroke. Self Care: Independent Functional Cognition: Independent DME/Equipment: Tub/Shower DME/Equipment Comments unable to determine Occupation: disabled Drive Self: No OT Current Status Subjective Ptn admits from outside hospital, in bed upon OT entry. Pt alert/ oriented. Expressive aphasia, able to state a few words at a time. Increased time needed for problem solving, cues for impulsivity and safety at times. Pt agrees to OT/ PT co-treat: OT addresses ADLs, UE movement, hemianopsia and scanning and balance while PT addresses transfers, LE movement, standing balance, and w/c mobility. OT eval: 5957-1125 (10) PT eval: [id number] OT/ PT co-treat: [id number] (80) Mental Status/Objective Patient Orientation: Person, Place, Situation (though not able to verbalize, was able to state "head." and agree to stroke when asked) Current Glasses/Contacts: No Hearing Aids: No Dentures/Partials: No Hand Dominance: Left Upper Extremity ROM R flaccid, trace (1/5) trap movement, slight sublux (1 finger) of R shoulder L WFL Upper Extremity Coordination WFL L R flaccid Upper Extremity Sensation WFL BUE Upper Extremity Strength WFL LUE Flaccid RUE Edema: none noted. ADL-Treatment Eating (QC): 3 (min A to stabilize item while pt opens (pudding/ applesauce). Pt requries max cues for small bites and swallowing twice (per ZONE MAINTENANCE TECHNICIAN chart from previous stay). ) Oral Hygiene (QC): 3 (based on clinical judgment, will require min A to begin) Shower/Bathe Self (QC): 1 (TD (max A in stance with Ax2 for bottom hygiene). Pt attempts feet/ calves, decrease of sitting balance requiring OT/ PT assist to upright position, mod A L side body) Upper Body Dressing (QC): 3 (mod A. Pt slightly impulsive, requires cues for direction and completion. Pt requires assist to complete R arm, pt able to thread L arm, dons overhead. Pt able to doff overhead.) Lower Body Dressing (QC): 1 (Pt able to lift L LE from ground to assist (decreased sitting balance), TD RLE, max A sit to stand with TD to don over hips.) On/Off Footwear (QC): 1 (TD) Toileting Hygiene (QC): 1 (TD: max A sit to stand and OT completes bottom hygiene) Other Treatments Pt in bed. Pt educated on OT role and ARU standards. OT eval with noted R flaccidity and R sided hemianopsia. Pt able to touch PT's finger in different planes and nose touch WFL. PT eval. Pt sits EOB with max A. Sits with assist for balance, slight trunk extension requiring cues to sit upright. Pt completes sit to stand and transfer to w/c with max A. Pt completes bathing/ dressing in w/c (noted decreased balance/ safety during trunk flexion for LB washing/ dressing, requiring max A and cues for safety at this time). Pt completes w/c mob, cues for R side (pt continues to move R footrest in to items on R side of body). Pt requires cues for R hand positioning on pillow during increased activity. Pt stands at parallel bars with Ax2 4x for 30-60 sec at a time with OT assist with balance and R hand. Upon sit, pt is educated on self-range of fingers. Pt hyperextends fingers, requiring cues for safety and again demonstration with hand. Pt sits EOM to completes sitting balance task, reaching across midline and requiring cervical rotation to compensate R side hemianopsia. Pt requires rest after ~5 min. Completes again. Once in room pt requires commode- TD SPTx2. Pt able to place penis in commode and urinate, no BM. Pt sit to stand into w/c with max A, brought to recliner. Pt requests food- with use of ZONE MAINTENANCE TECHNICIAN sheet, pt eats pudding and applesauce, stating he has not ate since breakfast. Pt denies OT ordering him food. Pt is sitting at ~90* upright position with max cues for small bites and max cues for swallowing 2x prior to added bite. Pt eats ice chips, pt impulsive during this task, taking multiple bites. Pt coughs, then stops. Pt's nurse notified of ice chips placed across room and assist/ supervision for ice chips/ feeding, nursing agrees to check on pt frequently for water and food needs. All needs met, call light in reach. Pt left in recliner with chair alarm on. Education OT Patient Education: Correct positioning, Modified ADL techniques, Purpose of tx/functional activities, Rehab process, Safety issues, Transfer techniques, W/C management Teaching Recipient: Patient Teaching Methods: Demonstration, Discussion Response to Teaching: Verbalize Understanding, Return Demonstration, Reinforcement Needed OT Short Term Goals Short Term Goals Eatin Oral hygiene: 5 Toileting hygiene: 2 Shower/bathe self: 2 Upper body dressin Lower body dressin Putting on/taking off footwear: 2 OT Senior Living Goals Drafter [employer]ings Goals Time Frame: Apr 24, 2020 Eating (QC): 6 Oral Hygiene (QC): 6 Toileting Hygiene (QC): 3 Shower/Bathe Self (QC): 3 Upper Body Dressing (QC): 6 Lower Body Dressing (QC): 3 On/Off Footwear (QC): 6 Additional Goals: 1-Demonstrate ADL Tasks, 2-Verbalize Understanding, 3- ImproveStrength/[place] 1=Demonstrate adherence to instructed precautions during ADL tasks. 2=Patient will verbalize/demonstrate understanding of assistive dev ices/modifications for ADL. 3=Patient will improve strength/tolerance for activity to enable patient to perform ADL's. OT Education/Plan Problem List/Assessment Assessment: Decreased Activ Tolerance, Decreased Safety Aware, Decreased UE Strength, Dependent Transfers, Impaired Bed Mobility, Impaired Coordination, Impaired Funct Balance, Impaired I ADL's, Impaired Self-Care Skills, Restricted Funct UE ROM, Visual-Perceptual Deficit Discharge Recommendations Plan/Recommendations: Continue POC Therapy Discharge Recommendati: Scheduled Assistance, Bath Aide, Home & Family, Post Acute OT Equpiment Recommendations-D/C: Extended Bath Bench, Rails on Tub/Shower, Bedside Commode Comment unable to fully assess pt's living situation/ environment due to expressive aphasia Treatment Plan/Plan of Care Treatment,Training & Education: Yes Patient would benefit from OT for education, treatment and training to promote independence in ADL's, mobility, safety and/or upper extremity function for ADL's. Plan of Care: ADL Retraining, Caregiver Training, Concurrent Therapy, Functional Mobility, Group Exercise/Act as Ind, Orthotic Fitting/Training, UE Funct Exercise/Act, UE Neuromus Re-Ed/Coord, Visual/Perceptual Retrain, W/C Management Training Treatment Duration: Apr 24, 2020 Frequency: At least 5 of 7 days/Wk (IRF) Estimated Hrs Per Day: 1.5 hours per day Agreement: Yes Rehab Potential: Fair Time/GCodes Start Time: 14:35 Stop Time: 16:15 Total Time Billed (hr/min): 90 Billed Treatment Time OT addresses ADLs, UE movement, hemianopsia and scanning and balance while PT addresses transfers, LE movement, standing balance, and w/c mobility. OT eval: [id number] (10) PT eval: [id number] OT/ PT co-treat: [id number] (80) 1, EVM (10), ADL 2 (30), WC (10), NM 2= 90 FATIMAH KERNS OTR Apr 10, 2020 16:31
[2020-04-10] MEDS ORDERED: FLU QUADRIvalent (3YOA+) 60 mcg/0.5 ml 2020-21 (AFLURIA) IM ONE (17:00)
--- NOTE | 2020-04-10 17:22 | PM&R Post Admission Assessment ---
PM&R HP Date of Visit: Apr 10, 2020 Time of Visit: 17:00 History of Present Illness CC: Acute ischemic L MCA 03/30, aphasia result with R side flaccidity and R hemianopsia HPI: This is a 59yoWM who presents to the IRF in need of aggressive rehab after suffering his 3rd CVA now with significant deficits including right sided flaccidity and expressive aphasia and cognitive deficits. He is unable to provide any details about his PCP or his previous occupation. I reviewed chart and pasted it below. I have consulted Dr Roach Cardiology. ( DC Note: Name: Juan Mcdonald Date Of : 1960 Age: 59 years Admit date: 03/29/2020 Discharge date: 04/10/2020 Discharge Attending: Dr. Kvng Hernandez Discharge Summary Completed By: Tejas Lara MD Service: Neurology Stroke Reason for hospitalization: Acute ischemic stroke (HCC) [I63.9] Primary Discharge Diagnosis: Acute ischemic left MCA stroke (HCC) Hospital Diagnoses: Hospital Problems Active Problems * (Principal) Acute ischemic left MCA stroke (HCC) Atrial fibrillation ([facility]) Essential hypertension Right hemiplegia ([facility]) Aphasia History of stroke Acute on chronic HFrEF (heart failure with reduced ejection fraction) ([facility]) Oropharyngeal dysphagia COVID-19 ruled out by laboratory testing Dysarthria Leukocytosis Homonymous hemianopia, right Resolved Problems RESOLVED: Metabolic acidosis RESOLVED: Atrial fibrillation with RVR ([facility]) Significant Past Medical History Atrial fibrillation ([facility]) Essential hypertension Hemiparesis affecting right side as late effect of stroke ([facility]) HFrEF (heart failure with reduced ejection fraction) ([facility]) History of stroke Comment: x 2 Homonymous hemianopia, right Allergies Brief Hospital Course Mr. Mcdonald is a 59 year old man who presented on 03/29/20 with acute onset right sided hemiplegia, speech impairment with initial NIHSS 18 at an outside hospital. Initial head CT did not show signs of hemorrhage. He was given tPA at OSH and transferred to [facility] for evaluation for thrombectomy. CTA revealed a L1 occlusion. Of note, he was found to be in A fib with RVR treated with IV metoprolol. He was transferred to [facility] by air where repeat Head CT showed no IVH after tPA. He was taken for urgent IR thrombectomy where TICI2c recannulization was achieved. He was admitted to the NEICU for post-procedural and post-tPA monitoring. MRI of the head was obtained and showed evolving left MCA infarct with mild edema resulting in minimal left to right midline shift as well as chronic left posterior MCA and [employer] territory infarcts. He completed his stroke workup while in the NEICU. Echo revealed severely reduced EF of 10-15% with global hypokinesis, no Lv thrombus, and no PFO. He continued to struggle with A fib with RVR refractory to multiple IV medications. Cardiology was consulted for further management with undergoing AV node ablation and biventricular ICD placement on 04/02/20. He was ultimately transferred to the floor on 04/03/20 due to clinical stability. While on the floor he continued to progress with PT/OT. He continues to work with [employer] and eventually was able to remove his NGT on 04/06 and progress towards an oral diet. The remainder of his hospitalization was without complications with delay in discharge due to issues with obtaining placement. Etiology of his stroke was determined to be due to cardioembolism in setting of atrial fibrillation while not taking anticoagulation. He had been on rivaroxaban in the past but had stopped taking this over the past month for an unknown reason. He was restarted on an aspirin while admitted with plans to restart anticoagulation with apixaban two weeks from his stroke on 04/12/20. He was continued on a high intensity statin and guideline directed medical therapy for his heart failure with reduced ejection fraction. He was discharged to [facility] on 04/10/20. His discharge examination was remarkable for right facial droop, slurred speech, right hemiplegia, mild word finding difficulty, NIHSS 11. A return appointment for the Neurology Stroke clinic was requested on discharge). Past Mawvuxx-Cspihv-Qozlts Hx Past Med/Social Hx: Reviewed Nursing Past Med/Soc Hx, Reviewed and Corrections made Patient Social History Marrital Status: single Alcohol Beverage of Choice: [place], Scotch 2nd Hand Smoke Exposure: No Recent Foreign Travel: No Contact w/other who traveled: No Recent Hopitalizations: No Recent Infectious Disease Expo: No Seasonal Allergies Seasonal Allergies: No Past Medical History Surgeries: Orthopedic Cardiac: Atrial Fibrillation, Hypertension Neurological: Stroke Musculoskeletal: Chronic Back Pain History of Blood Disorders: No Adverse Reaction to Blood [place]: No Family History No Pertinent Family Hx Self Care: Independent Functional Cognition: Independent Occupation: disabled Drive Self: No Current Level of Fuctioning Roll Left to Right: 2 Sit to Lyin Lying to Sitting/Side of Bed: 2 Sit to Stand: 2 Chair/Fhb-gv-Xmyfo Xfer: 2 Car Transfer: 2 Eatin (min A to stabilize item while pt opens (pudding/ applesauce). Pt requries max cues for small bites and swallowing twice (per [employer] chart from previous stay). ) Oral Hygiene: 3 (based on clinical judgment, will require min A to begin) Shower/Bathe Self: 1 (TD (max A in stance with Ax2 for bottom hygiene). Pt attempts feet/ calves, decrease of sitting balance requiring OT/ PT assist to upright position, mod A L side body) Upper Body Dressin (mod A. Pt slightly impulsive, requires cues for direction and completion. Pt requires assist to complete R arm, pt able to thread L arm, dons overhead. Pt able to doff overhead.) Lower Body Dressin (Pt able to lift L LE from ground to assist (decreased sitting balance), TD RLE, max A sit to stand with TD to don over hips.) On/Off Footwear: 1 (TD) Toileting Hygiene: 1 (TD: max A sit to stand and OT completes bottom hygiene) PM&R Allergy/Meds/Data Review Allergies Coded Allergies: No Known Drug Allergies (Unverified , 02/25/15) Home Medications Scheduled Amlodipine Besylate (Amlodipine Besylate), 5 MG PO DAILY, (Reported) Apixaban (Eliquis), 5 MG PO BID, (Reported) Aspirin (Aspirin), 81 MG PO DAILY, (Reported) Atorvastatin Calcium (Atorvastatin Calcium), 40 MG PO HS, (Reported) Bisoprolol Fumarate (Bisoprolol Fumarate), 5 MG PO DAILY, (Reported) Furosemide (Lasix), 20 MG PO DAILY, (Reported) Losartan Potassium (Losartan Potassium), 50 MG PO DAILY, (Reported) Spironolactone (Aldactone), 25 MG PO DAILY W/ FOOD, (Reported) Discontinued Medications Acetaminophen (Acetaminophen), 500 MG PO PRN, (Reported) Discontinued Reason: No Longer Taking Amlodipine Besylate (Amlodipine Besylate), 10 MG PO DAILY, (Reported) Discontinued Reason: No Longer Taking Baclofen (Baclofen), 20 MG PO TID PRN for MUSCLE SPASMS, (Reported) Discontinued Reason: No Longer Taking Carvedilol (Carvedilol), 25 MG PO BID, (Reported) Discontinued Reason: No Longer Taking Diltiazem HCl (Cartia Xt), 240 MG PO DAILY, (Reported) Discontinued Reason: No Longer Taking Gabapentin (Gabapentin), 200 MG PO TID, (Reported) Discontinued Reason: No Longer Taking Hydralazine HCl (Hydralazine HCl), 100 MG PO BID, (Reported) Discontinued Reason: No Longer Taking Hydrocodone Bit/Acetaminophen (Lortab 5 Mg Tablet), 1 EACH PO Q6H PRN for PAIN- MILD, (Reported) Discontinued Reason: No Longer Taking Magnesium Oxide (Magnesium), 400 MG PO DAILY, (Reported) Discontinued Reason: No Longer Taking Potassium Gluconate (Potassium Gluconate 595 MG), 99 MG PO DAILY, (Reported) Discontinued Reason: No Longer Taking Rivaroxaban (Xarelto Tablet), 20 MG PO DAILY, (Reported) Discontinued Reason: No Longer Taking Current Medications Current Medications Reviewed Review of Systems Constitutional: see HPI, malaise, weakness Psychiatric/Neurological: Anxiety, Depressed, Paresthesia, Pre-Existing Deficit, Weakness Physical Exam Physical Exam Vital Signs Vital Signs - First Documented 04/10/20 14:50 Temp 36.8 Pulse 80 Resp 16 B/P (MAP) 116/64 Pulse Ox 97 O2 Delivery Room Air Capillary Refill : Height, Weight, BMI Height: 5'10.00" Weight: 258lbs. 15.0oz. [id number]; 30.94 BMI Method:Stated General Appearance: No Apparent Distress, WD/WN, Chronically ill Eyes: Bilateral Eye Normal Inspection, Bilateral Eye PERRL HEENT: PERRL/EOMI, Normal ENT Inspection, Pharynx Normal Neck: Full Range of Motion, Normal Inspection, Non Tender, Supple, Carotid Bruit Respiratory: Chest Non Tender, Lungs Clear, Normal Breath Sounds, No Accessory Muscle Use, No Respiratory Distress Cardiovascular: Regular Rate, Rhythm, No Edema, No Gallop, No JVD, No Murmur, Normal Peripheral Pulses Gastrointestinal: Normal Bowel Sounds, No Organomegaly, No Pulsatile Mass, Non Tender, Soft Back: Normal Inspection, No CVA Tenderness, No Vertebral Tenderness Extremity: Normal Capillary Refill, Normal Inspection, Normal Range of Motion, Non Tender, No Calf Tenderness, No Pedal Edema Neurologic/Psychiatric: Alert, Normal Mood/Affect, Abnormal Gait, Aphasia, Depressed Affect, Disoriented, Motor Weakness (right sided flaccidity) Skin: Normal Color, Warm/Dry Lymphatic: No Adenopathy PM&R Medical Assessment & Plan REHAB/MEDICAL ASSESSMENT AND PLAN: REHAB IMPAIRMENT GROUP: CVA ETIOLOGIC DIAGNOSIS: CVA The comorbidities that impact the patients function and/or functional outcome by: catastrophic CVA with right sided flaccidity along with cardiomyopathy and expressive aphasia REHAB PLAN: The patient is being admitted to our comprehensive inpatient rehabilitation facility and can tolerate the intensity of service consisting of at least: 180 minutes of therapy a day, 5 out of 7 days a week Rehab treatment will consist of: PT OT ST will all focus on regaining some function in order to lessen burden of caretakers to help regain ADL's and ambulatory abilities The patient/family has a good understanding of our discharge process and will benefit from an interdisciplinary inpatient rehabilitation program. The patient has potential to make improvement and is in need of at least two of the following multidisciplinary therapies including but not limited to physical, occupational, speech, and prosthetics and orthotics. Additionally the patient will need services from respiratory, nutritional services, wound care, psychology, etc. (Customize this to each patient). Given the patients complex condition and risk of further medical complications, rehabilitation services cannot be safely or effectively provided at a lower level of care such as a penitentiary facility. BARRIERS TO DISCHARGE: Severe CVA residual deficit ESTIMATED LOS: 14 days DISPOSITION: Home RELEVANT CHANGES SINCE PREADMISSION SCREENING: I have compared the patients medical and functional status at the time of the preadmission screening and there are: no changes PROGNOSIS: Fair REHABILITATION GOALS: 1. PT OT ST will all focus on regaining some function in order to lessen burden of caretakers to help regain ADL's and ambulatory abilities All the above goals were reviewed with the patient and he/she is in agreement. By signing this document, I acknowledge that I have personally performed a full physical examination on this patient within 24 hours of admission to this inpatient rehabilitation facility and have determined the patient to be able to tolerate the above course of treatment at an intensive level for a reasonable period of time. I will be completing a detailed individualized Plan of Care for this patient by day #4 of the patients stay based upon the Preadmission Screen, the Post-Admission Evaluation, and the therapy evaluations. Admission Dx/Comorbidities: (1) Flaccid hemiplegia affecting right dominant side ICD Codes: G81.01 - Flaccid hemiplegia affecting right dominant side (2) Expressive aphasia ICD Codes: R47.01 - Aphasia (3) Cardiomyopathy ICD Codes: I42.9 - Cardiomyopathy, unspecified (4) Cardiac defibrillator in place ICD Codes: Z95.810 - Presence of automatic (implantable) cardiac defibrillator (5) CVA (cerebral vascular accident) Status: Acute ICD Codes: I63.9 - Cerebral infarction, unspecified (6) Atrial fibrillation with rapid ventricular response Status: Acute ICD Codes: I48.91 - Unspecified atrial fibrillation (7) Tachyarrhythmia Status: Acute ICD Codes: R00.0 - Tachycardia, unspecified Assessment/Plan Assessment and Plan Assess & Plan/Chief Complaint Assessment: 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 Defib in place Cardiomyopathy HTN Plan: Monitor dysphagia Cardiology consultation IRF protocol ABDIAZIZ ANTONIO DO Apr 10, 2020 17:22
[2020-04-10 17:39] VITALS: BP 92/58
--- NOTE | 2020-04-10 21:00 | NUR ---
MILD EXPRESSIVE APHASIA. RIGHT SIDE FLACCID. HAD TO BE ENCOURAGED TO BE TURNED BY NURSE - WANTED TO JUST STAY ON BACK, BUT TEACHING GIVEN ON NEED FOR REPOSITIONING AND FINALLY AGREED.
[2020-04-10] MEDS: APIXABAN 5 MG (ELIQUIS) TABLET PO SCH (21:12)
[2020-04-10] MEDS: polyethylene glycoL POWDER 17 GM (MIRALAX) PACK PO SCH (21:14)
[2020-04-10] MEDS: DOCUSATE SODIUM 100 MG (COLACE) CAP PO SCH (21:14)
[2020-04-10] MEDS: SENNA W/DOCUSATE (SENOKOT S) TABLET PO SCH (21:14)
[2020-04-11 04:51] LABS: BASOPHILS # (AUTO) 0.1 10^3/uL (0.0-0.1); BASOPHILS % (AUTO) 0 % (0-10); EOSINOPHILS # (AUTO) 0.3 10^3/uL (0.0-0.3); EOSINOPHILS % (AUTO) 2 % (0-10); HEMATOCRIT 46 % (40-54); LYMPHOCYTES # (AUTO) 2.1 10^3/uL (1.0-4.0); LYMPHOCYTES % (AUTO) 16 % (12-44); MEAN CORPUSCULAR HEMOGLOBIN 30 pg (25-34); MEAN CORPUSCULAR HGB CONC 33 g/dL (32-36); MEAN CORPUSCULAR VOLUME 91 fL (80-99); MEAN PLATELET VOLUME 11.5 fL (9.0-12.2); MONOCYTES # (AUTO) 1.8 10^3/uL (0.0-1.0); MONOCYTES % (AUTO) 14 % (0-12); NEUTROPHILS % (AUTO) 67 % (42-75); PLATELET COUNT 327 10^3/uL (130-400); WHITE BLOOD COUNT 13.4 10^3/uL (4.3-11.0)
[2020-04-11 05:09] LABS: ALANINE AMINOTRANSFERASE 150 U/L (0-55); ALBUMIN 3.2 GM/DL (3.2-4.5); ALKALINE PHOSPHATASE 125 U/L (40-136); BILIRUBIN,TOTAL 0.5 MG/DL (0.1-1.0); BUN/CREATININE RATIO 23; CALCIUM 8.7 MG/DL (8.5-10.1); CARBON DIOXIDE 21 MMOL/L (21-32); CHLORIDE 106 MMOL/L (98-107); CREATININE SERUM 0.81 MG/DL (0.60-1.30); GFR ESTIMATED > 60; GLUCOSE 95 MG/DL (70-105); POTASSIUM 4.2 MMOL/L (3.6-5.0); SODIUM 137 MMOL/L (135-145); TOTAL PROTEIN 6.3 GM/DL (6.4-8.2)
[2020-04-11 05:23] VITALS: BP 102/62
--- NOTE | 2020-04-11 07:00 | NUR ---
FED SELF BREAKFAST AND ATE 100% WITH NO APPARENT DIFFICULTY IN SWALLOWING.
[2020-04-11 08:00] VITALS: BP 102/68
--- NOTE | 2020-04-11 08:54 | ST Cognitive Linguistic Eval ---
Speech Evaluation-General Medical Diagnosis CVA, R side flaccidity Onset Date: Mar 30, 2020 Therapy Diagnosis Therapy Diagnosis: Expressive aphasia, dysarthria, oropharyngeal dysphagia Precautions Precautions: Aspiration Precautions/Isolations: Aspiration Referral Referring Physician: Dr. Onofre Medical History Pertinent Medical History: CVA Reviewed History: Yes Social History Current Living Status: Other Family Speech PLF-Current Status Prior Level of Function Patient lived with his sister and brother in law where he states he was independent. Patient has had two prior CVA's and was not currently working. Subjective Patient was pleasant and cooperative with the evaluation. Language Eval: Auditory Comprehends Simple Yes/No Ques: Functional Indent/Objects Multiple Castillo: Functional Ident/Pics in Multiple Castillo: Functional Follows 1-Step Commands: Functional Follows Complex Directions: Mild Follows General Conversations: Functional Language Eval: Verbal Language Completes Spontaneous Greeting: Functional Produces Auto, Serial Info: Functional Imitates Simple Words/Phrases: Functional Word Finding: Moderate Requests Basic Needs: Moderate States Basic Personal Info: Mild Expresses Complex Ideas: Moderate Objective Cognitive Domain Attention: Mild Memory: Mild Problem Solving: Moderate Executive Functions: Moderate Visuospatial Skills: Mild Composite Severity Rating: Moderate Objective Formal/Standardized Tests [facility] Mental Status (UMS), informal speech tasks, dysphagia trials Results Moderate deficits with word finding, expressive language, following simple multi-step directions Oral Motor/Speech Production Patient's speech is at 80% intelligibility due to dysarthria Impression Patient is a pleasant 59 y/o male who was admitted to the ARU s/p his third CVA. Patient presents with right side flaccidity, dysarthria, cognitive deficits and oropharyngeal dysphagia. The patient was given portions of the SLUMS, informal speech tasks and dysphagia trials with results of moderate deficits. The patient requires skilled ST skills with focus on improving expressive language deficit, dysphagia deficit and oral motor function related to speech production. Speech Patient Assess Expression of Ideas/Wants: Frequently (2) Understanding Verbal Content: Usually Understands (3) Brief Interview-Mental Status: Yes Repetition of Three Words: Two (2) Temporal Orientation: Year: Correct (3) Temporal Orientation: Month: Accurate within 5 days(2) Temporal Orientation: Day: Incorrect or No Answer(0) Recall : Wear to say "Sock": No, could not recall (0) Recall : Color: No, could not recall (0) Recall : Bed: Yes,after cueing (1) Memory/Recall Ability: That he or she is in a hsp/hsp unit Speech Short Term Goals Short Term Goals Short Term Goals 1) The patient will complete OME for improved speech production at each session with 80% or greater accuracy. 2) The patient will complete word finding tasks with 80% or greater accuracy. 3) The patient will complete expressive language tasks 80% or greater accuracy. 4) The patient will tolerate least restrictive diet level without s/s of aspiration at 80% or greater accuracy. 5) The patient will utilize compensatory strategies as trained 80% or greater accuracy. Speech Licensed Massage Therapist Goals Licensed Massage Therapist Goals Patient will improve cognitive-communication abilities for completion of daily needs with minimal assist. Patient will maintain adequate nutrition/hydration via safe effective swallow function. Speech-Plan Patient/Family Goals Patient/Family Goals: Patient plans on returning to his home where he lives with his sister and brother in law. Treatment Plan Speech Therapy Treatment Plan: Continue Plan of Care Treatment Duration: Apr 26, 2020 Frequency: 4 times per week (Patient will receive skilled ST 4-5x per week) Estimated Hrs Per Day: .5 hour per day Rehab Potential: Fair Barriers to Learning: Patient's medical history with this being his third CVA Pt/Family Agrees to Plan: Yes Safety Risks/Education Teaching Recipient: Patient Teaching Methods: Discussion Response to Teaching: Verbalize Understanding Education Topics Provided: Safety of oral intake, communication of wants/needs, utilization of call light Time Speech Therapy Time In: 08:30 Speech Therapy Time Out: 09:00 Total Billed Time: 30 Billed Treatment Time 1, SPSNDCOMP, SLTS, DYST, DYSEVS No 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
[2020-04-11] MEDS: BISOPROLOL 5 MG TAB (ZEBETA) PO SCH (09:00)
[2020-04-11] MEDS ORDERED: ASPIRIN 81 MG CHEW (CHILDREN'S ASA) PO SCH (09:00)
[2020-04-11] MEDS ORDERED: NON-FORMULARY MEDICATION 1 EA EA (Bisoprolol Fumarate 5 MG) PO SCH (09:00)
[2020-04-11] MEDS: DOCUSATE SODIUM 100 MG (COLACE) CAP PO SCH ×2 (09:00→21:23)
[2020-04-11] MEDS: polyethylene glycoL POWDER 17 GM (MIRALAX) PACK PO SCH ×2 (09:00→21:23)
[2020-04-11] MEDS: SENNA W/DOCUSATE (SENOKOT S) TABLET PO SCH ×2 (09:00→21:25)
[2020-04-11] MEDS: amLODIPine 5 MG (NORVASC) TAB PO SCH (09:00)
[2020-04-11] MEDS: LOSARTAN 50 MG (COZAAR) TAB PO SCH (09:03)
[2020-04-11] MEDS: FUROSEMIDE 20 MG (LASIX) TAB PO SCH (09:04)
[2020-04-11] MEDS: APIXABAN 5 MG (ELIQUIS) TABLET PO SCH ×2 (09:04→21:22)
[2020-04-11] MEDS: SPIRONOLACTONE 25 MG (ALDACTONE) TAB PO SCH (09:04)
--- NOTE | 2020-04-11 10:27 | Occupational Ther Daily Note ---
OT Current Status-Daily Note Subjective Pt in bed upon entry. OT/ PT co-treat this session. OT focuses on ADLs, UE placement, problem solving, as PT addresses functional transfers, LE movement, balance. Pt denies pain originally, then upon movement states, "Ouch, ouch," and grabs calf. Agrees to mm cramp. Pt requires decreased cues this session, though becomes progressively more fatigued throughout. OT/ PT co-treat: [id number] OT individual tx: [id number] Total: 75 min Mental Status/Objective Patient Orientation: Person, Place, Situation ADL-Treatment Therapy Code Descriptions/Definitions Functional [place] Measure: 0=Not Assessed/NA 4=Minimal Assistance 1=Total Assistance 5=Supervision or Setup 2=Maximal Assistance 6=Modified [place] 3=Moderate Assistance 7=Complete IndependenceSCALE: Activities may be completed with or without assistive devices. 4-Yzvnfcdpxk-rycbtdx completes the activity by him/herself with no assistance from a helper. 5-Set-up or Clean-up Assistance-helper sets up or cleans up; patient completes activity. [place] assists only prior to or following the activity. 4-Supervision or Touching Assistance-helper provides verbal cues and/or touching/steadying and/or contact guard assistance as patient completes activity. Assistance may be provided throughout the activity or intermittently. 3-Partial/Moderate Assistance-helper does LESS THAN HALF the effort. [place] lifts, holds or supports trunk or limbs, but provides less than half the effort. 2-Substantial/Maximal Assistance-helper does MORE THAN HALF the effort. [place] lifts or holds trunk or limbs and provides more than half the effort. 3-Ooxpjikrn-zjqjyo does ALL the effort. Patient does none of the effort to complete the activity. Or, the assistance of 2 or more helpers is required for the patient to complete the activity. If activity was not attempted, code reason: 7-Patient Refused. 9-Not Applicable-not attempted and the patient did not perform the activity before the current illness, exacerbation or injury. 10-Not Attempted due to Environmental Limitations-(lack of equipment, weather restraints, etc.). 88-Not Attempted due to Medical Conditions or Safety Concerns. Bathing Location: R Arm, L Upper Leg, R Upper Leg, L Lower Leg (including foot), R Lower Leg (including foot), Chest, Abdomen, Perineal Area Shower/Bathe Self (QC): 3 (completes in shower room on supportive sc. Pt transfers with min A sit to stand from w/c at gb, and sc placed behind pt. Pt showers with mod A (assist with L arm and bottom). Pt give LHS for feet/ calves, still requiring min-mod A for sitting balance upon leaning. ) Upper Body Dressing (QC): 3 (mod A- guidance of R UE first, assist with pulling to axilla, pt able to complete L arm threading and over head. Assist with adjusting.) Lower Body Dressing (QC): 1 (TD (Ax2). Pt able to state dress R leg first. Pt requires assist threading BLE, then stands at parallel bars with min A. Ax2 to chain puller hips. ) On/Off Footwear: 2 (Pt doffs with dressing stick and mod A. Max A (pt able to bring L over heel), Max A RLE) Toileting Hygiene (QC): 1 (TD for bottom care) Toilet Transfer (QC): 3 (min A standing at gb and then able to sit with seat under them.) Other Treatment Pt supine to sit with mod A. Sitting balance with max A this date. Pt sit to stands with min A, fx transfer (SPT) with max A. Pt pushed to shower room in w/c, completes showering/ dressing as outlined. Pt pushed in w/c to gym. In parallel bars, pt completes 3 rounds of ambulation with OT addressing RUE placement and w/c following while PT completes assist with LEs. Pt rests in between. Pt completes 3 rounds of stance with min A for righting in stance while PT blocks L knee. PT exits, OT individual tx: Pt in w/c and is educated on use of w/c within home. pt has carpet and tile per pt. Pt able to utilize LLE to propel forward with visual cues from floor/ lines. Pt able to maintain center of akers for most part with min A for problem solving and propelling. Pt able to make 90* turn to L side, OT pushes back to room. SPT to bed (per pt request), Ax2 to reach HOB. Pt left with all needs met, call light in reach, pt's LLE/ UE propped by pillow. Education OT Patient Education: Exercise program, Modified ADL techniques, Progress toward Goal/Update tx plan, Purpose of tx/functional activities, Safety issues, Transfer techniques, Use of adapted equipment, W/C management Teaching Recipient: Patient Teaching Methods: Demonstration, Discussion Response to Teaching: Verbalize Understanding, Return Demonstration OT Short Term Goals Short Term Goals Eatin Oral hygiene: 5 Toileting hygiene: 2 Shower/bathe self: 2 Upper body dressin Lower body dressin Putting on/taking off footwear: 2 OT Senior Living Goals Red Mud Thickener Operator Goals Time Frame: Apr 24, 2020 Eating (QC): 6 Oral Hygiene (QC): 6 Toileting Hygiene (QC): 3 Shower/Bathe Self (QC): 3 Upper Body Dressing (QC): 6 Lower Body Dressing (QC): 3 On/Off Footwear (QC): 6 Additional Goals: 1-Demonstrate ADL Tasks, 2-Verbalize Understanding, 3- ImproveStrength/[place] 1=Demonstrate adherence to instructed precautions during ADL tasks. 2=Patient will verbalize/demonstrate understanding of assistive devices/modifications for ADL. 3=Patient will improve strength/tolerance for activity to enable patient to perform ADL's. OT Education/Plan Problem List/Assessment Assessment: Decreased Activ Tolerance, Decreased Safety Aware, Decreased UE Strength, Dependent Transfers, Impaired Bed Mobility, Impaired Cognition, Impaired Coordination, Impaired Funct Balance, Impaired I ADL's, Impaired Self- Care Skills, Restricted Funct UE ROM, Visual-Perceptual Deficit Discharge Recommendations Plan/Recommendations: Continue POC Therapy Discharge Recommendati: Intermittent Supervision, Home & Family, Post Acute OT Treatment Plan/Plan of Care Treatment,Training & Education: Yes Patient would benefit from OT for education, treatment and training to promote independence in ADL's, mobility, safety and/or upper extremity function for ADL's. Plan of Care: ADL Retraining, Caregiver Training, Concurrent Therapy, Functional Mobility, Group Exercise/Act as Ind, Orthotic Fitting/Training, UE Funct Exercise/Act, UE Neuromus Re-Ed/Coord, Visual/Perceptual Retrain, W/C Management Training Treatment Duration: Apr 24, 2020 Frequency: At least 5 of 7 days/Wk (IRF) Estimated Hrs Per Day: 1.5 hours per day Agreement: Yes Rehab Potential: Guarded Time/GCodes Start Time: 09:00 Stop Time: 10:15 Total Time Billed (hr/min): 75 Billed Treatment Time OT/ PT co-treat this session. OT focuses on ADLs, UE placement, problem solving, as PT addresses functional transfers, LE movement, balance. OT/ PT co-treat: [id number] OT individual tx: [id number] Total: 75 min 1, ADL 3, EX, WC (75) FATIMAH KERNS OTR Apr 11, 2020 10:27
--- NOTE | 2020-04-11 10:39 | Physical Therapy Daily Note ---
PT Daily Note-Current Subjective Patient in bed pre tx, agrees to PT, has no complaints of pain. Will be co- treating with OT due to poor patient mobility, strength, endurance, right hemiparesis, the need to coordinate UE and LE during activity. Appearance Patient in therapy gym post tx, will continue with OT. Mental Status Patient Orientation: Person, Non-Verbal/Aphasic Transfers SCALE: Activities may be completed with or without assistive devices. 2-Qtcefgofft-yqmfwdh completes the activity by him/herself with no assistance from a helper. 5-Set-up or Clean-up Assistance-helper sets up or cleans up; patient completes activity. [place] assists only prior to or following the activity. 4-Supervision or Touching Assistance-helper provides verbal cues and/or to uching/steadying and/or contact guard assistance as patient completes activity. Assistance may be provided throughout the activity or intermittently. 3-Partial/Moderate Assistance-helper does LESS THAN HALF the effort. [place] lifts, holds or supports trunk or limbs, but provides less than half the effort. 2-Substantial/Maximal Assistance-helper does MORE THAN HALF the effort. [place] lifts or holds trunk or limbs and provides more than half the effort. 0-Alvckolbd-fxzomt does ALL the effort. Patient does none of the effort to complete the activity. Or, the assistance of 2 or more helpers is required for the patient to complete the activity. If activity was not attempted, code reason: 7-Patient Refused. 9-Not Applicable-not attempted and the patient did not perform the activity before the current illness, exacerbation or injury. 10-Not Attempted due to Environmental Limitations-(lack of equipment, weather restraints, etc.). 88-Not Attempted due to Medical Conditions or Safety Concerns. Roll Left & Right (QC): 3 Lying to Sitting/Side of Bed(Q: 3 Sit to Stand (QC): 3 Chair/Lrw-bp-[place] Xfer(QC): 3 Supine to sit, transfer to , patient propells WC to shower room with max assist, transfer to shower chair and undress, shower, dress and transfer to , propel to therapy gym with max assist, ambulated in parallel bars 6'x3 with max assist. Gait Training Distance: 6'x3 Gait Assistive Device: Parallel Bars needs assist with balance and weight shifting, advancing his right leg, cues for step placement Wheelchair Training Does the Pt Use a Wheelchair?: Yes Wheel 50 ft with 2 turns (QC): 2 Wheel 150 ft (QC): 2 Type of Wheelchair: Manual 150'x2, patient assists propelling with left leg but has trouble with turning Treatments PT worked on bed mobility and transfers, ambulation, WC mobility, assist with standing and positioning and safety during dressing and showering, OT worked on dressing and shower and UE positioning during transfers and ambulation Assessment Current Status: Fair Progress patient is not able to bear weight on right leg PT Short Term Goals Short Term Goals Time Frame: Apr 18, 2020 Roll Left & Right: 3 Sit to lyin Lying to sitting on side of be: 3 Sit to stand: 3 Chair/ksj-mj-jafco transfer: 3 PT Jail Goals Furniture Salesperson Goals PT Furniture Salesperson Goals Time Frame: May 02, 2020 Roll Left & Right (QC): 3 (Zoya) Sit to Lying (QC): 3 (Zoya) Lying-Sitting on Side/Bed(QC): 3 (Zoya) Sit to Stand (QC): 3 (Zoya) Chair/Qrm-uw-Cdflr Xfer(QC): 3 (Zoya) Toilet Transfer (QC): 3 (Zoya) Car Transfer (QC): 3 (Zoya) Does the Patient Walk: No and Walking Goal NOT indicated Walk 10 feet (QC): 88 Walk 50ft with 2 Turns (QC): 88 Walk 150 ft (QC): 88 Walking 10ft on Uneven Surface: 88 1 Step (curb) (QC): 88 4 Steps (QC): 88 12 Steps (QC): 88 Picking up an Object (QC): 88 Wheel 50 feet with 2 turns (QC: 4 Wheel 150 feet: 4 PT Plan Problem List Problem List: Activity Tolerance, Functional Strength, Safety, Balance, Gait, Transfer, Bed Mobility, ROM Treatment/Plan Treatment Plan: Continue Plan of Care Treatment Plan: Bed Mobility, Education, Functional Activity [place], Functional Strength, Group Therapy, Gait, Safety, Therapeutic Exercise, Transfers Treatment Duration: May 01, 2020 Frequency: At least 5 of 7 days/Wk (IRF) Estimated Hrs Per Day: 1.5 hours per day Patient and/or Family Agrees t: Yes Safety Risks/Education Patient Education: Gait Training, Transfer Techniques, Correct Positioning, W/C Management, Safety Issues Teaching Recipient: Patient Teaching Methods: Demonstration, Discussion Response to Teaching: Reinforcement Needed Time/GCodes Time In: 0900 Time Out: 1000 Total Billed Treatment Time: 60 Total Billed Treatment 1 visit FA 60' co-treated for the whole 60' DARRYL BARTLETT PT Apr 11, 2020 10:39
--- NOTE | 2020-04-11 10:48 | Individualized Plan of Care ---
Individualized Plan of Care Rehab Nursing IPOC Order Admission Date Apr 10, 2020 at 14:20 Current Orders Orders Admission Order(Inpt,Obs,Sdc) (04/10/20 05:16) Vital Signs: Per Unit Policy ( 08,16,00 (04/10/20 05:16) Kole Henao 09,21 (04/10/20 05:16) Sequential Compression Device Q4H (04/10/20 05:16) X Ray Service Engineer-Inpt Rehab Con (04/10/20 05:16) Rehab Nursing Orders-Ipoc (04/10/20 05:16) Physical Therapy Rehab Orders (04/10/20 05:16) Occupational Therapy Rehab Ord (04/10/20 05:16) Speech Therapy Rehab Orders (04/10/20 05:16) Cbc With Automated Diff (04/11/20 06:00) Comprehensive Metabolic Panel (04/11/20 06:00) General/Regular (04/10/20 Breakfast) Intake & Output 06,14, (04/10/20 05:16) Precautions (Aru) (04/10/20 05:16) Rehab-Intensity Of Therapy (04/10/20 05:16) Initiate Admission Nursing Pro .admission (04/10/20 05:16) Acetaminophen Tablet (Tylenol Tablet) (04/10/20 05:30) Alprazolam Tablet (Xanax Tablet) (04/10/20 05:30) Calcium Carbonate Chew Tablet (Antacid C (04/10/20 05:30) Diphenhydramine Tablet (Benadryl Tablet) (04/10/20 05:30) Docusate Sodium Capsule (Colace Capsule) (04/10/20 21:00) Docusate Sodium Capsule (Colace Capsule) (04/10/20 05:30) Bisacodyl Suppository (Dulcolax Supposit (04/10/20 05:30) Lactulose Oral Solution (Enulose Oral So (04/10/20 05:30) Na Phos/Na Biphos Enema (Fleet Enema Franc (04/10/20 05:30) Guaifenesin/Codeine Syrup (Robitussin Ac (04/10/20 05:30) Loperamide Tablet (Imodium Tablet) (04/10/20 05:30) Melatonin Tablet (Melatonin Tablet) (04/10/20 05:30) Polyethylene Glycol Powder Pkt (Miralax (04/10/20 21:00) Ondansetron Oral Dissolve Tab (Zofran (04/10/20 05:30) Senna S Tablet (Senokot S Tablet) (04/10/20 21:00) Initiate Admission Nursing Pro .admission (04/10/20 05:16) Consult Cardiology (04/10/20 05:17) Ekg Tracing (04/10/20 05:17) Admission Order(Inpt,Obs,Sdc) (04/10/20 14:35) Ambulate ,12, (04/10/20 15:11) Sequential Compression Device Q4H (04/10/20 15:11) Dvt/Vte Risk - Notifiy Physici Q4H (04/10/20 15:11) Acetaminophen Tablet/Caplet (Tylenol T (04/10/20 17:00) Flu Quad (3yoa+) (Afluria Quad 2 (04/10/20 17:00) Dys2 Mechanically Altered (04/10/20 Dinner) Amlodipine Tablet (Norvasc Tablet) (04/11/20 09:00) Apixaban Tablet (Eliquis Tablet) (04/10/20 21:00) Aspirin Chewable Tablet (Baby Aspirin Ch (04/11/20 09:00) Atorvastatin Tablet (Lipitor) (04/10/20 21:00) Furosemide Tablet (Lasix Tablet) (04/11/20 09:00) Losartan Tablet (Cozaar Tablet) (04/11/20 09:00) Spironolactone Tablet (Aldactone Tablet) (04/11/20 09:00) (Nf) Bisoprolol Fumarate (04/11/20 09:00) Consult Cardiology (04/10/20 17:22) Bisoprolol (Zebeta) (04/11/20 09:00) Ekg Tracing (04/11/20 05:00) Patient Visit (04/11/20 ) Speech Sound Lang Comp (04/11/20 ) Treat. Speech/Lang/Voice (04/11/20 ) Dysphagia Evaluation Std (04/11/20 ) Dysphagia Therapy (04/11/20 ) Patient Visit (04/10/20 ) Pt Eval Moderate Complexity (04/10/20 ) Functional Activities, Ea 15 (04/10/20 ) Patient Visit (04/11/20 ) Functional Activities, Ea 15 (04/11/20 ) Patient Visit (04/11/20 ) Exercise Therap, Ea 15 Min (04/11/20 ) Aspirin Chewable Tablet (Baby Aspirin Ch (04/11/20 20:30) Rehab Nursing Orders: Ongoing Assess. of Cognitive Status, Ongoing Assess. of Function Status, Bladder Management, Bladder Scan, Bladder Training, Bowel Management, Bowel Training, Disease Management & Educaiton, DVT Prophylaxis, Fall Prevention, Fluid/Electrolyte/Nutrition Mgmt, Infection Prevention, Medication Management & Education, Management of Risks & Complications, Nutr ition Management, Pain Management, Patient/Family Support, Safety Management, Swallow Precautions Intensity of Therapy to be met Patient to be seen: Min.3h per day/5 of 7d PT IPOC Problem List: Activity Tolerance, Functional Strength, Safety, Balance, Gait, Transfer, Bed Mobility, ROM Treatment Plan: Continue Plan of Care Bed Mobility, Education, Functional Activity [place], Functional Strength, Group Therapy, Gait, Safety, Therapeutic Exercise, Transfers Treatment Duration: May 01, 2020 Frequency: At least 5 of 7 days/Wk (IRF) Estimated Hrs Per Day: 1.5 hours per day OT IPOC Problems: Decreased Activ Tolerance, Decreased Safety Aware, Decreased UE Strength, Dependent Transfers, Impaired Bed Mobility, Impaired Cognition, Impaired Coordination, Impaired Funct Balance, Impaired I ADL's, Impaired Self- Care Skills, Restricted Funct UE ROM, Visual-Perceptual Deficit OT Treatment, Training and Edu: Yes Plan of Care: ADL Retraining, Caregiver Training, Concurrent Therapy, Functional Mobility, Group Exercise/Act as Ind, Orthotic Fitting/Training, UE Funct Exercise/Act, UE Neuromus Re-Ed/Coord, Visual/Perceptual Retrain, W/C Management Training Treatment Duration: Apr 24, 2020 Frequency: At least 5 of 7 days/Wk (IRF) Estimated Hrs Per Day: 1.[address] IPOC Speech Therapy Treatment Plan: Continue Plan of Care Treatment Duration: Apr 26, 2020 Frequency: 4 times per week (Patient will receive skilled ST 4-5x per week) Estimated Hrs Per Day: .5 hour per day X Ray Service Engineer/Case Mgmt X Ray Service Engineer/Case Managemen: Discharge Planning Dietitian/Fruit Picker Dietitian/Fruit Picker to monitor nutritional status and make changes and/or recommendations as needed and work with speech pathology on dietary upgrades as the occur. Physician IPOC Medical Issues being managed closely and that require the 24 hour availability of a physician: Recent catastrophic CVA with ischemic cardiomyopathy and AF w/RVR with ICD placement will need close monitoring of cardiac status due to increased risk of decompensation Medical Issues: Bowel/Bladder Function, DVT Prophylaxis, Falls Precautions, Fluid/Electrolyte/Nutrition Balance, Infection Protection, Pain Management Brief Synthesis of Preadmission Screen, Post-Admission Evaluation, and Therapy Evaluations: PT OT will focus on regaining ADL's and lessen the burden on future caretakers and ST will help with cognition and speech Medical Prognosis: Fair Anticipated Length of Stay: 14 days ABDIAZIZ ANTONIO DO Apr 11, 2020 10:48
--- NOTE | 2020-04-11 10:48 | PM&R Progress Note ---
Subjective HPI/CC On Admission Date Seen by Provider: Apr 11, 2020 Time Seen by Provider: 12:30 Subjective/Events-last exam Pt doing pretty well Expressive aphasia is an issue WBC is 12.4 CMP normal Consulting cardiology Overall doing very well Conferred with RN Checked meds and labs Reviewed therapy notes Review of Systems General: Fatigue, Malaise Neurological: Weakness, Incoordination, Change in speech Objective Exam Vital Signs Vital Signs Date Time Temp Pulse Resp B/P (MAP) Pulse Ox O2 Delivery O2 Flow Rate FiO2 04/11/20 17:10 36.6 81 18 110/64 (79) 98 Room Air Capillary Refill : Less Than 3 Seconds General Appearance: No Apparent Distress, WD/WN, Chronically ill HEENT: PERRL/EOMI, Normal ENT Inspection, Pharynx Normal Neck: Full Range of Motion, Normal Inspection, Non Tender, Supple, Carotid Bruit Respiratory: Chest Non Tender, Lungs Clear, Normal Breath Sounds, No Accessory Muscle Use, No Respiratory Distress Cardiovascular: Regular Rate, Rhythm, No Edema, No Gallop, No JVD, No Murmur, Normal Peripheral Pulses Gastrointestinal: Normal Bowel Sounds, No Organomegaly, No Pulsatile Mass, Non Tender, Soft Back: Normal Inspection, No CVA Tenderness, No Vertebral Tenderness Extremity: Normal Capillary Refill, Normal Inspection, Normal Range of Motion, Non Tender, No Calf Tenderness, No Pedal Edema Neurologic/Psychiatric: Alert, Normal Mood/Affect, Abnormal Gait, Aphasia, Depressed Affect, Disoriented, Motor Weakness (right sided flaccidity) Skin: Normal Color, Warm/Dry Lymphatic: No Adenopathy Results/Procedures Lab Patient resulted labs reviewed. FIM Transfers Therapy Code Descriptions/Definitions Functional [place] Measure: 0=Not Assessed/NA 4=Minimal Assistance 1=Total Assistance 5=Supervision or Setup 2=Maximal Assistance 6=Modified [place] 3=Moderate Assistance 7=Complete IndependenceSCALE: Activities may be completed with or without assistive devices. 1-Kfjbxlutzp-dalzcnz completes the activity by him/herself with no assistance from a helper. 5-Set-up or Clean-up Assistance-helper sets up or cleans up; patient completes activity. [place] assists only prior to or following the activity. 4-Supervision or Touching Assistance-helper provides verbal cues and/or touching/steadying and/or contact guard assistance as patient completes activity. Assistance may be provided throughout the activity or intermittently. 3-Partial/Moderate Assistance-helper does LESS THAN HALF the effort. [place] lifts, holds or supports trunk or limbs, but provides less than half the effort. 2-Substantial/Maximal Assistance-helper does MORE THAN HALF the effort. [place] lifts or holds trunk or limbs and provides more than half the effort. 5-Wljvurprg-gavskg does ALL the effort. Patient does none of the effort to complete the activity. Or, the assistance of 2 or more helpers is required for the patient to complete the activity. If activity was not attempted, code reason: 7-Patient Refused. 9-Not Applicable-not attempted and the patient did not perform the activity before the current illness, exacerbation or injury. 10-Not Attempted due to Environmental Limitations-(lack of equipment, weather restraints, etc.). 88-Not Attempted due to Medical Conditions or Safety Concerns. Roll Left to Right (QC): 3 Sit to Lying (QC): 2 Sit to Stand (QC): 3 Chair/Ebu-qy-Wlsdl Xfer(QC): 3 Car Transfer (QC): 2 Gait Training Does the Patient Walk?: No and Walking Goal NOT indicated Distance: 6'x3 Walk 10 feet (QC): 88 Walk 50 ft with 2 Turns(QC): 88 Walk 150 ft (QC): 88 Walking 10ft/uneven surface-QC: 88 Gait Assistive Device: Parallel Bars Wheelchair Training Does the Pt Use a Wheelchair?: Yes Wheel 50 ft with 2 turns (QC): 2 Wheel 150 ft (QC): 2 Type of Wheelchair: Manual Stair Training 1 Step (curb) (QC): 88 4 Steps (QC): 88 12 Steps (QC): 88 Balance Picking up an Object (QC): 88 ADL-Treatment Eating (QC): 3 (min A to stabilize item while pt opens (pudding/ applesauce). Pt requries max cues for small bites and swallowing twice (per STAMP PRESS OPERATOR chart from previous stay). ) Oral Hygiene (QC): 3 (based on clinical judgment, will require min A to begin) Bathing Location: R Arm, L Upper Leg, R Upper Leg, L Lower Leg (including foot), R Lower Leg (including foot), Chest, Abdomen, Perineal Area Shower/Bathe Self (QC): 3 (completes in shower room on supportive sc. Pt transfers with min A sit to stand from w/c at gb, and sc placed behind pt. Pt showers with mod A (assist with L arm and bottom). Pt give LHS for feet/ calves, still requiring min-mod A for sitting balance upon leaning. ) Upper Body Dressing (QC): 3 (mod A- guidance of R UE first, assist with pulling to axilla, pt able to complete L arm threading and over head. Assist with adjusting.) Lower Body Dressing (QC): 1 (TD (Ax2). Pt able to state dress R leg first. Pt requires assist threading BLE, then stands at parallel bars with min A. Ax2 to cotton puller hips. ) On/Off Footwear (QC): 2 (Pt doffs with dressing stick and mod A. 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
--- NOTE | 2020-04-11 12:43 | NUR ---
"RD ASSESSMENT PMHx: afib; HTN; stroke; PT INTERACTION: Pt was awake and pleasant during nutrition assessment. Note pt is a poor historian, per chart review. Pt states current appetite is okay. Note avg PO intake 100% x2meal, per chart review. Pt states following a regular diet at home, and has some difficulties with swallowing food. Pt states no recent issues with nausea, vomiting, or constipation. Pt states recent issues with diarrhea. Note last BM was 04/10, and pt currently on bowel regimen of colace BID, senna BID, and miralax BID, per chart review. Pt states some recent wt loss, but unsure of amount/timeframe. Note unable to determine recent wt hx, per chart review. ABNORMAL NUTRITION-RELATED LAB VALUES LOW: Pro 6.3; HIGH: BUN 19; AST 110; ALT 150; Est. kcal needs: 1055-7550 kcal | 15-20 kcal/kg Est. Pro needs: 69-86 g Pro | 0.8-1.0 g Pro/kg PES STATEMENT: Swallowing Difficulty (NC-1.1) related to motor causes (recent stroke) as evidenced by pt interview and chart review. INTERVENTION: Continue with current diet order of DYS2 Mechanically Altered diet, with modifier of [place] Thickened Liquids. Encouraged pt to eat when able. Will continue to follow and reassess as pt needs, intake, and status change. Jose Elias Rawls, MS RD LD"
--- NOTE | 2020-04-11 14:41 | Physical Therapy Daily Note ---
PT Daily Note-Current Subjective Patient in bed pre tx, agrees to PT, has no complaints of pain. Appearance Patient in bed post tx with nurse call, phone, tray, all needs met. Mental Status Patient Orientation: Person, Unable to Assess, Non-Verbal/Aphasic Transfers SCALE: Activities may be completed with or without assistive devices. 6-Ohfikknhyk-vjfvnmr completes the activity by him/herself with no assistance from a helper. 5-Set-up or Clean-up Assistance-helper sets up or cleans up; patient completes activity. [place] assists only prior to or following the activity. 4-Supervision or Touching Assistance-helper provides verbal cues and/or touching/steadying and/or contact guard assistance as patient completes activity. Assistance may be provided throughout the activity or intermittently. 3-Partial/Moderate Assistance-helper does LESS THAN HALF the effort. [place] lifts, holds or supports trunk or limbs, but provides less than half the effort. 2-Substantial/Maximal Assistance-helper does MORE THAN HALF the effort. [place] lifts or holds trunk or limbs and provides more than half the effort. 7-Yuyjzuooy-puwxcw does ALL the effort. Patient does none of the effort to complete the activity. Or, the assistance of 2 or more helpers is required for the patient to complete the activity. If activity was not attempted, code reason: 7-Patient Refused. 9-Not Applicable-not attempted and the patient did not perform the activity before the current illness, exacerbation or injury. 10-Not Attempted due to Environmental Limitations-(lack of equipment, weather restraints, etc.). 88-Not Attempted due to Medical Conditions or Safety Concerns. Exercises Supine Ex: Heel Slides, Short Arc Quads, Straight leg raise Supine Reps: 10 (AAROM) right leg PROM/stretching in all planes, manually resisted supine leg extension Treatments stretching, LE exercise Assessment Current Status: Fair Progress Patient was able to assist with leg extension PT Short Term Goals Short Term Goals Time Frame: Apr 18, 2020 Roll Left & Right: 3 Sit to lyin Lying to sitting on side of be: 3 Sit to stand: 3 Chair/wec-ai-adtsr transfer: 3 PT Halfway Goals Halfway Goals PT Supervisor Reinforced Steel Placing Goals Time Frame: May 02, 2020 Roll Left & Right (QC): 3 (Zoya) Sit to Lying (QC): 3 (Zoya) Lying-Sitting on Side/Bed(QC): 3 (Zoya) Sit to Stand (QC): 3 (Zoya) Chair/Jlz-hh-Glomr Xfer(QC): 3 (Zoya) Toilet Transfer (QC): 3 (Zoya) Car Transfer (QC): 3 (Zoya) Does the Patient Walk: No and Walking Goal NOT indicated Walk 10 feet (QC): 88 Walk 50ft with 2 Turns (QC): 88 Walk 150 ft (QC): 88 Walking 10ft on Uneven Surface: 88 1 Step (curb) (QC): 88 4 Steps (QC): 88 12 Steps (QC): 88 Picking up an Object (QC): 88 Wheel 50 feet with 2 turns (QC: 4 Wheel 150 feet: 4 PT Plan Problem List Problem List: Activity Tolerance, Functional Strength, Safety, Balance, Gait, Transfer, Bed Mobility, ROM Treatment/Plan Treatment Plan: Continue Plan of Care Treatment Plan: Bed Mobility, Education, Functional Activity [place], Functional Strength, Group Therapy, Gait, Safety, Therapeutic Exercise, Transfers Treatment Duration: May 01, 2020 Frequency: At least 5 of 7 days/Wk (IRF) Estimated Hrs Per Day: 1.5 hours per day Patient and/or Family Agrees t: Yes Safety Risks/Education Patient Education: Correct Positioning, Safety Issues Teaching Recipient: Patient Teaching Methods: Demonstration, Discussion Response to Teaching: Reinforcement Needed Time/GCodes Time In: 1355 Time Out: 1410 Total Billed Treatment Time: 15 Total Billed Treatment 1 visit EX DARRYL JORGE PT Apr 11, 2020 14:41
[2020-04-11 17:10] VITALS: BP 110/64
--- NOTE | 2020-04-11 17:20 | Consultation-Cardiology ---
HPI-Cardiology Cardiology Consultation: Date of Consultation 04/11/20 Date of Admission Attending Physician Estella Onofre DO Admitting Physician Kelsey Parmar DO Consulting Physician Edwin PEDRAZA MD HPI: Time Seen by a Provider: 16:00 Chief Complaint: Atrial fibrillation, stroke This is a 59-year-old gentleman who I seen in the office for atrial fibrillation. I last saw him in November 2019 when he was on Xarelto and flecainide. He has an implantable loop recorder and was having episodes of atrial fibrillation on flecainide. We had discussed ablation but the patient did not want ablation and just wanted to continue medical therapy. Apparently he presented to with MCA stroke. He was found not to be taking his oral anticoagulation. Mechanical thrombectomy was done. 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 He continued to be in atrial fibrillation with uncontrolled rate. His EF was also found to be significantly abnormal. Therefore AV mani ablation was done with implantation of a SCHOOL OFFICE ASSISTANT-D device. He is transferred to via [facility] rehabilitation unit. When I saw the patient today he denies any chest pain or shortness of breath. He denies active smoking. Pertinent family history is negative. Review of Systems-Cardiology Review of Systems Constitutional: As described under HPI; No As described under HPI, No no symptoms reported, No chills, No fever, No lightheadedness Eyes: No As described under HPI, No no symptoms reported, No blindness, No blurred vision, No contact lenses, No drainage, No decreased acuity, No foreign body sensation, No pain, No vision change Ears/Nose/Throat: No As described under HPI, No no symptoms reported, No chronic hearing loss, No ear discharge, No ear pain, No nasal drainage, No ulcerations Respiratory: No no symptoms reported; As described under HPI; No As described under HPI, No cough, No orthopnea, No shortness of breath, No SOB with excertion Cardiovascular: No no symptoms reported; As described under HPI; No As described under HPI, No chest pain, No edema, No irregular heart rate, No lightheadedness, No palpitations Gastrointestinal: No no symptoms reported, No As described under HPI, No abdomen distended, No abdominal pain, No blood streaked bowels, No constipation, No diarrhea, No nausea, No vomiting, No stool coloration changes Genitourinary: No As described under HPI, No burning, No dysuria, No discharge, No frequency, No flank pain, No hematuria, No urgency Skin: No rash, No skin related problems, No ulcerations Psychiatric/Neurological: As described under HPI; No anxiety, No depression, No seizure, No focal weakness, No syncope Hematologic: No bleeding abnormalities QCU-Nnkekz-Zmzlop Hx Patient Social History Marrital Status: single 2nd Hand Smoke Exposure: No Recent Foreign Travel: No Recent Infectious Disease Expo: No Past Medical History PMH As described under Assessment. Allergies and Home Medications Allergies Coded Allergies: No Known Drug Allergies (Unverified , 02/25/15) Home Medications Amlodipine Besylate 5 Mg Tablet, 5 MG PO DAILY, (Reported) Apixaban 5 Mg Tablet, 5 MG PO BID, (Reported) Aspirin 81 Mg Tab.chew, 81 MG PO DAILY, (Reported) TAKE FOR 2 DAYS Atorvastatin Calcium 40 Mg Tablet, 40 MG PO HS, (Reported) Bisoprolol Fumarate 5 Mg Tablet, 5 MG PO DAILY, (Reported) Furosemide 20 Mg Tablet, 20 MG PO DAILY, (Reported) Losartan Potassium 50 Mg Tablet, 50 MG PO DAILY, (Reported) Spironolactone 25 Mg Tablet, 25 MG PO DAILY W/ FOOD, (Reported) Patient Home Medication List Home Medication List Reviewed: Yes Physical Exam-Cardiology Physical Exam Vital Signs/I&O 04/11/20 04/11/20 04/11/20 05:23 09:00 17:10 Temp 36.5 36.6 Pulse 80 81 Resp 18 18 B/P (MAP) 102/62 (75) 110/64 (79) Pulse Ox 98 98 O2 Delivery Room Air Room Air Room Air 04/11/20 00:00 Intake Total 400 ml Balance 400 ml Capillary Refill : Less Than 3 Seconds Constitutional: appears stated age, AAO x 3; No apparent distress; well- developed, well-nourished HEENT: PERRL; No discharge; hearing is well preserved, oral hygience is good; No ulceration, No xanthelasmas are seen Neck: No carotid bruit; carotid pulses are 2 + bilaterally Respiratory: chest is bilaterally symmetric, lungs clear to auscultation Cardiovascular: irregularly irregular, S1 and S2 Gastrointestinal: soft, audible bowel sounds; No spleenomegaly Rectal: deferred Extremities: No clubbing, No cyanosis; no lower extremity edema bilateral; No significant edema Neurologic/Psychiatric: alert, oriented x 3, motor weakness Skin: normal color, warm/dry; No rash, No ulcerations Data Review Labs Laboratory Tests 04/11/20 04:35: White Blood Count 13.4H, Red Blood Count 5.08, Hemoglobin 15.0, Hematocrit 46, Mean Corpuscular Volume 91, Mean Corpuscular Hemoglobin 30, Mean Corpuscular Hemoglobin Concent 33, Red Cell Distribution Width 12.9, Platelet Count 327, Mean Platelet Volume 11.5, Immature Granulocyte % (Auto) 1, Neutrophils (%) (Auto) 67, Lymphocytes (%) (Auto) 16, Monocytes (%) (Auto) 14H, Eosinophils (%) (Auto) 2, Basophils (%) (Auto) 0, Neutrophils # (Auto) 9.0H, Lymphocytes # (Auto) 2.1, Monocytes # (Auto) 1.8H, Eosinophils # (Auto) 0.3, Basophils # (Auto) 0.1, Immature Granulocyte # (Auto) 0.2H, Sodium Level 137, Potassium Level 4.2, Chloride Level 106, Carbon Dioxide Level 21, Anion Gap 10, Blood Urea Nitrogen 19H, Creatinine 0.81, Estimat Glomerular Filtration Rate > 60, BUN/Creatinine Ratio 23, Glucose Level 95, Calcium Level 8.7, Corrected Calcium 9.3, Total Bilirubin 0.5, Aspartate Amino Transf (AST/SGOT) 110H, Alanine Aminotransferase (ALT/SGPT) 150H, Alkaline Phosphatase 125, Total Protein 6.3L, Albumin 3.2 ECG Impression ECG Initial ECG Impression: Atrial Fibrillation Comment Paced rhythm. A/P-Cardiology Assessment/Admission Diagnosis Acute stroke, Cardiomyopathy, Atrial fibrillation with rapid ventricular rate, Recent AV node ablation, SCHOOL OFFICE ASSISTANT-D device Plan Acute stroke, status post mechanical aspiration. Still has residual deficits. Aggressive inpatient rehabilitation. Cardiomyopathy, ROMULO inhibitor, beta evan. Atrial fibrillation with rapid ventricular rate, AV node ablation. We'll start oral anticoagulation when okay with neurology. Recent AV node ablation, SCHOOL OFFICE ASSISTANT-D device, no active issues. Thank you for your consultation. Please call me if you have any questions. Corwin Pedraza MD, FACP, FACC, [facility] [place], [place] Interventional Cardiology Cardiac Electrophysiology Vascular Medicine and Endovascular Interventions Clinical Quality Measures DVT/VTE Risk/Contraindication: Risk Factor Score Per Nursin RFS Level Per Nursing on Admit: 4+=Very High Edwin PEDRAZA MD Apr 11, 2020 17:20
[2020-04-11] MEDS: ASPIRIN 81 MG CHEW (CHILDREN'S ASA) PO SCH (21:23)
[2020-04-12] MEDS: ACETAMINOPHEN 325 MG TABLET PO PRN ×2 (00:39→11:55)
[2020-04-12 06:00] VITALS: BP 102/62
[2020-04-12 08:00] VITALS: BP 127/69
[2020-04-12] MEDS: polyethylene glycoL POWDER 17 GM (MIRALAX) PACK PO SCH ×2 (09:00→20:01)
--- NOTE | 2020-04-12 10:00 | Physical Therapy Daily Note ---
PT Daily Note-Current Subjective Patient in bed pre tx, agrees to PT, has no complaints of pain. Will be co- treating with OT due to poor patient mobility, strength, endurance, right hemiparesis, poor sitting and standing balance, the need to coordinate UE and LE during activity. Appearance Patient in recliner post tx with nurse call, phone, tray, all needs met, legs elevated. Mental Status Patient Orientation: Person, Unable to Assess Transfers SCALE: Activities may be completed with or without assistive devices. 7-Uojmzjroan-esqyrqq completes the activity by him/herself with no assistance from a helper. 5-Set-up or Clean-up Assistance-helper sets up or cleans up; patient completes activity. [place] assists only prior to or following the activity. 4-Supervision or Touching Assistance-helper provides verbal cues and/or touching/steadying and/or contact guard assistance as patient completes activity. Assistance may be provided throughout the activity or intermittently. 3-Partial/Moderate Assistance-helper does LESS THAN HALF the effort. [place] lifts, holds or supports trunk or limbs, but provides less than half the effort. 2-Substantial/Maximal Assistance-helper does MORE THAN HALF the effort. [place] lifts or holds trunk or limbs and provides more than half the effort. 8-Kcbrkrhoz-dbebxs does ALL the effort. Patient does none of the effort to complete the activity. Or, the assistance of 2 or more helpers is required for the patient to complete the activity. If activity was not attempted, code reason: 7-Patient Refused. 9-Not Applicable-not attempted and the patient did not perform the activity before the current illness, exacerbation or injury. 10-Not Attempted due to Environmental Limitations-(lack of equipment, weather restraints, etc.). 88-Not Attempted due to Medical Conditions or Safety Concerns. Roll Left & Right (QC): 3 Sit to Lying (QC): 3 Lying to Sitting/Side of Bed(Q: 3 Sit to Stand (QC): 3 Chair/Xwi-bw-Oksnn Xfer(QC): 3 min/mod assist for rolling and supine <-> sit, min assist stand pivot transfers to the left and mod to the right Gait Training Distance: 6'x2 Gait Persons Needed: 2 Gait Assistive Device: Parallel Bars On the second bout of ambulation patient experienced pain in right hip, got him to the therapy table to examine right hip ROM and perform ROM in RLE in all planes Wheelchair Training Does the Pt Use a Wheelchair?: Yes Wheel 50 ft with 2 turns (QC): 2 Wheel 150 ft (QC): 2 Type of Wheelchair: Manual 150'x2 Neuromuscular sitting balance activity working on limits of stability and abdominal strength Treatments after getting back to his room patient needed to use the restroom, transferred to commode but he indicated that he would not urinate, transferred to recliner. PT performed bed mobility and transfers, WC mobiltiy, ambulation, sitting balance activity, OT performed dressing, assist with balance activity, UE positioning and safety during activity. Assessment Current Status: Poor Progress patient still has no movement in right leg PT Short Term Goals Short Term Goals Time Frame: Apr 18, 2020 Roll Left & Right: 3 Sit to lyin Lying to sitting on side of be: 3 Sit to stand: 3 Chair/exc-dw-rzeqp transfer: 3 PT Correction Goals Correction Goals PT Correction Goals Time Frame: May 02, 2020 Roll Left & Right (QC): 3 (Zoya) Sit to Lying (QC): 3 (Zoya) Lying-Sitting on Side/Bed(QC): 3 (Zoya) Sit to Stand (QC): 3 (Zoya) Chair/Udx-kd-Vpyxz Xfer(QC): 3 (Zoya) Toilet Transfer (QC): 3 (Zoya) Car Transfer (QC): 3 (Zoya) Does the Patient Walk: No and Walking Goal NOT indicated Walk 10 feet (QC): 88 Walk 50ft with 2 Turns (QC): 88 Walk 150 ft (QC): 88 Walking 10ft on Uneven Surface: 88 1 Step (curb) (QC): 88 4 Steps (QC): 88 12 Steps (QC): 88 Picking up an Object (QC): 88 Wheel 50 feet with 2 turns (QC: 4 Wheel 150 feet: 4 PT Plan Problem List Problem List: Activity Tolerance, Functional Strength, Safety, Balance, Gait, Transfer, Bed Mobility, ROM Treatment/Plan Treatment Plan: Continue Plan of Care Treatment Plan: Bed Mobility, Education, Functional Activity [place], Functional Strength, Group Therapy, Gait, Safety, Therapeutic Exercise, Transfers Treatment Duration: May 01, 2020 Frequency: At least 5 of 7 days/Wk (IRF) Estimated Hrs Per Day: 1.5 hours per day Patient and/or Family Agrees t: Yes Safety Risks/Education Patient Education: Gait Training, Transfer Techniques, Correct Positioning, W/C Management, Safety Issues Teaching Recipient: Patient Teaching Methods: Demonstration, Discussion Response to Teaching: Reinforcement Needed Time/GCodes Time In: 0900 Time Out: 1000 Total Billed Treatment Time: 60 Total Billed Treatment 1 visit EX 10' NM 20' FA 30' co-treated with OT for 60' DARRYL BARTLETT PT Apr 12, 2020 10:00
[2020-04-12] MEDS: amLODIPine 5 MG (NORVASC) TAB PO SCH (10:07)
[2020-04-12] MEDS: SPIRONOLACTONE 25 MG (ALDACTONE) TAB PO SCH (10:07)
[2020-04-12] MEDS: BISOPROLOL 5 MG TAB (ZEBETA) PO SCH (10:07)
[2020-04-12] MEDS: FUROSEMIDE 20 MG (LASIX) TAB PO SCH (10:08)
[2020-04-12] MEDS: SENNA W/DOCUSATE (SENOKOT S) TABLET PO SCH ×2 (10:08→20:43)
[2020-04-12] MEDS: DOCUSATE SODIUM 100 MG (COLACE) CAP PO SCH ×2 (10:08→20:43)
[2020-04-12] MEDS: ASPIRIN 81 MG CHEW (CHILDREN'S ASA) PO SCH (10:08)
[2020-04-12] MEDS: APIXABAN 5 MG (ELIQUIS) TABLET PO SCH ×2 (10:08→20:44)
[2020-04-12] MEDS: LOSARTAN 50 MG (COZAAR) TAB PO SCH (10:08)
--- NOTE | 2020-04-12 10:17 | Occupational Ther Daily Note ---
OT Current Status-Daily Note Subjective Pt alert/ oriented. Agrees to tx. OT/ PT co-treat for 60 min ([id number]), with OT focusing on ADLs, UE movement, balance and PT working on LE movement, fx transfers and w/c mobility. Pt states pain intermittently, has R quad cramp during standing, requiring immediate sit. Pt continues to states, "Oh man, oh man, ouch, ouch." OT individual tx: Pt in bed. Pt states ate, unsure what ate. Pt agrees to tx. Mental Status/Objective Patient Orientation: Person, Place, Situation ADL-Treatment Therapy Code Descriptions/Definitions Functional Cost Measure: 0=Not Assessed/NA 4=Minimal Assistance 1=Total Assistance 5=Supervision or Setup 2=Maximal Assistance 6=Modified Cost 3=Moderate Assistance 7=Complete IndependenceSCALE: Activities may be completed with or without assistive devices. 7-Fsfyrlsnab-sonocup completes the activity by him/herself with no assistance from a helper. 5-Set-up or Clean-up Assistance-helper sets up or cleans up; patient completes activity. [place] assists only prior to or following the activity. 4-Supervision or Touching Assistance-helper provides verbal cues and/or touching/steadying and/or contact guard assistance as patient completes activity. Assistance may be provided throughout the activity or intermittently. 3-Partial/Moderate Assistance-helper does LESS THAN HALF the effort. [place] lifts, holds or supports trunk or limbs, but provides less than half the effort. 2-Substantial/Maximal Assistance-helper does MORE THAN HALF the effort. [place] lifts or holds trunk or limbs and provides more than half the effort. 1-Onoiqxwhp-beigwz does ALL the effort. Patient does none of the effort to complete the activity. Or, the assistance of 2 or more helpers is required for the patient to complete the activity. If activity was not attempted, code reason: 7-Patient Refused. 9-Not Applicable-not attempted and the patient did not perform the activity before the current illness, exacerbation or injury. 10-Not Attempted due to Environmental Limitations-(lack of equipment, weather restraints, etc.). 88-Not Attempted due to Medical Conditions or Safety Concerns. Eating (QC): 4 (SUP during ice chip) Lower Body Dressing (QC): 1 (Ax2 for assist in stance (max A) and LB dressing (max A)Max A in bed for LB dressing 2nd tx.) On/Off Footwear: 1 (TD shoes this date. Pt's laces replaced with elastic laces.max A in w/c 2nd tx.) Toileting Hygiene (QC): 1 (TD in stance for bottom. Pt completes salvador with IND in sit.) Toilet Transfer (QC): 1 (TD (max A sit to stand with PT as PT assists in commode placement and hip guidance to toilet/ pant doffing over hips)) Other Treatment Pt completes bed mob with mod A. Assist to reach EOB. Sit to stand from EOB with max A and transfer to w/c. Pt has difficulty propelling w/c with LLE, flexes torso for momentum though has difficulty maintaining hip placement in w/c seat, requiring adjusting in chair. Pt has decreased LE endurance. Pt is assisted to gym in w/c. Pt stands at parallel bars, able to take ~5 steps with assist from PT with OT assist with R hand placement and w/c. Pt rests, attempts again. Pain in anterior RLE upon attempt to step with pt immediately sitting in w/c placed behind him. Pt agrees to cramp. Pt is brought to EOM, sit to supine with mod A for safety. Pt's RUE ranged to full range in supine. Pt sits EOM and completes modified sit ups with min A for righting and lateral trunk flexion with min A intermittently. Pt has decreased sitting endurance, requiring increased rest breaks. Pt transfers to w/c with PT assist, completes lap through akers with PT assisting with propelling. Pt has carpet/ tile in home; based on current abilities pt will not be able to propel on carpeted areas to complete fx movements through home. Pt returns to room. States need for bathroom. Transfers to weaker/ R side with TD and assist from OT to move commode/ doff pants. Pt sits, unable to urinate. Pt is adjusted in recliner, states need to change pants. These are soiled, is Ax2 for completing LB dressing. Left in recliner with call light in lap, all needs met, chair alarm on, nursing notified of pt's need for SUP for feeding due to impulsivity. Nursing states will get nectar thickened water for pt. [id number]: Pt is in bed/ wet. Pt agrees to tx. Pt able to roll toward R/ weak side in bed. Able to doff pants from L hip with L hand, upon roll with min A to L side, pt requires assist to pull pants down from hips off R hip and bridges to pull out from bottom. Pt's R LE threaded with TD, L with max A. Pt able to bridge and assist in pulling L side over hips, R side with max A. in total, LB dressing with max A. Pt able to push RLE to EOB with LLE. Pt then instructed to roll and sit upwards with assist of LUE. Pt sits upright with mod A. EOB, pt requires min-max A for sitting balance. Pt sit to stand with mod A, transfer to w/c placed on L side with max A to maintain stance. Pt instructed on donning shoes, completes L with s/u, R LE donning with max A. pt completes w/c mobility with instruction to compensate hemianopsia by turning head to R side throughout propulsion. Pt propels self with LLE through akers with success, able to completes 360* turn around obstacle with one instance of hitting item to R side. Much higher increase in fx mobility ability since this am. Pt left with PT end of session. Education OT Patient Education: Correct positioning, Exercise program, Modified ADL techniques, Progress toward Goal/Update tx plan, Purpose of tx/functional activities, Safety issues, Transfer techniques Teaching Recipient: Patient Teaching Methods: Demonstration, Discussion Response to Teaching: Verbalize Understanding, Return Demonstration, Reinforcem ent Needed OT Short Term Goals Short Term Goals Eatin Oral hygiene: 5 Toileting hygiene: 2 Shower/bathe self: 2 Upper body dressin Lower body dressin Putting on/taking off footwear: 2 OT Halfway Goals [employer] Trainer Goals Time Frame: Apr 24, 2020 Eating (QC): 6 Oral Hygiene (QC): 6 Toileting Hygiene (QC): 3 Shower/Bathe Self (QC): 3 Upper Body Dressing (QC): 6 Lower Body Dressing (QC): 3 On/Off Footwear (QC): 6 Additional Goals: 1-Demonstrate ADL Tasks, 2-Verbalize Understanding, 3-I mproveStrength/[place] 1=Demonstrate adherence to instructed precautions during ADL tasks. 2=Patient will verbalize/demonstrate understanding of assistive devices/modifications for ADL. 3=Patient will improve strength/tolerance for activity to enable patient to perform ADL's. OT Education/Plan Problem List/Assessment Assessment: Decreased Activ Tolerance, Decreased Safety Aware, Decreased UE Strength, Dependent Transfers, Impaired Bed Mobility, Impaired Cognition, Impaired Coordination, Impaired Funct Balance, Impaired I ADL's, Impaired Self- Care Skills, Restricted Funct UE ROM, Visual-Perceptual Deficit Discharge Recommendations Plan/Recommendations: Continue POC Therapy Discharge Recommendati: 24 Hour Supervision, Home & Family, Post Acute OT Treatment Plan/Plan of Care Treatment,Training & Education: Yes Patient would benefit from OT for education, treatment and training to promote independence in ADL's, mobility, safety and/or upper extremity function for ADL's. Plan of Care: ADL Retraining, Caregiver Training, Concurrent Therapy, Functional Mobility, Group Exercise/Act as Ind, Orthotic Fitting/Training, UE Funct Exercise/Act, UE Neuromus Re-Ed/Coord, Visual/Perceptual Retrain, W/C Management Training Treatment Duration: Apr 24, 2020 Frequency: At least 5 of 7 days/Wk (IRF) Estimated Hrs Per Day: 1.5 hours per day Agreement: Yes Rehab Potential: Guarded Time/GCodes Start Time: 09:00 (1300) Stop Time: 10:00 (1330) Total Time Billed (hr/min): 90 Billed Treatment Time [id number] (60): 1, ADL, WC, NM 2 (60) OT/ PT co-treat for 60 min ([id number]), with OT focusing on ADLs, UE movement, balance and PT working on LE movement, fx transfers and w/c mobility. [id number] (30): 1, ADL, WC (30) FATIMAH KERNS OTR Apr 12, 2020 10:17
--- NOTE | 2020-04-12 12:27 | PM&R Progress Note ---
Subjective HPI/CC On Admission Date Seen by Provider: Apr 12, 2020 Time Seen by Provider: 12:30 Subjective/Events-last exam 04/12/20: Severe pain on right side Oxycodone ordered Participating in therapies well No other pain Pt doing pretty well Expressive aphasia is an issue WBC is 12.4 CMP normal Consulting cardiology Overall doing very well Conferred with RN Checked meds and labs Reviewed therapy notes Review of Systems Musculoskeletal: arm pain, leg pain Objective Exam Vital Signs Vital Signs Date Time Temp Pulse Resp B/P (MAP) Pulse Ox O2 Delivery O2 Flow Rate FiO2 04/13/20 05:09 36.0 80 18 126/76 (93) 97 Room Air Capillary Refill : Less Than 3 Seconds General Appearance: No Apparent Distress, WD/WN, Chronically ill HEENT: PERRL/EOMI, Normal ENT Inspection, Pharynx Normal Neck: Full Range of Motion, Normal Inspection, Non Tender, Supple, Carotid Bruit Respiratory: Chest Non Tender, Lungs Clear, Normal Breath Sounds, No Accessory Muscle Use, No Respiratory Distress Cardiovascular: Regular Rate, Rhythm, No Edema, No Gallop, No JVD, No Murmur, Normal Peripheral Pulses Gastrointestinal: Normal Bowel Sounds, No Organomegaly, No Pulsatile Mass, Non Tender, Soft Back: Normal Inspection, No CVA Tenderness, No Vertebral Tenderness Extremity: Normal Capillary Refill, Normal Inspection, Normal Range of Motion, Non Tender, No Calf Tenderness, No Pedal Edema Neurologic/Psychiatric: Alert, Normal Mood/Affect, Abnormal Gait, Aphasia, Depressed Affect, Disoriented, Motor Weakness (right sided flaccidity) Skin: Normal Color, Warm/Dry Lymphatic: No Adenopathy Results/Procedures Lab Patient resulted labs reviewed. FIM Transfers Therapy Code Descriptions/Definitions Functional [place] Measure: 0=Not Assessed/NA 4=Minimal Assistance 1=Total Assistance 5=Supervision or Setup 2=Maximal Assistance 6=Modified [place] 3=Moderate Assistance 7=Complete IndependenceSCALE: Activities may be completed with or without assistive devices. 1-Wduetujgmf-sgzglun completes the activity by him/herself with no assistance from a helper. 5-Set-up or Clean-up Assistance-helper sets up or cleans up; patient completes activity. [place] assists only prior to or following the activity. 4-Supervision or Touching Assistance-helper provides verbal cues and/or touching/steadying and/or contact guard assistance as patient completes ac tivity. Assistance may be provided throughout the activity or intermittently. 3-Partial/Moderate Assistance-helper does LESS THAN HALF the effort. [place] lifts, holds or supports trunk or limbs, but provides less than half the effort. 2-Substantial/Maximal Assistance-helper does MORE THAN HALF the effort. [place] lifts or holds trunk or limbs and provides more than half the effort. 2-Buvfjnemp-bsfkwj does ALL the effort. Patient does none of the effort to complete the activity. Or, the assistance of 2 or more helpers is required for the patient to complete the activity. If activity was not attempted, code reason: 7-Patient Refused. 9-Not Applicable-not attempted and the patient did not perform the activity before the current illness, exacerbation or injury. 10-Not Attempted due to Environmental Limitations-(lack of equipment, weather restraints, etc.). 88-Not Attempted due to Medical Conditions or Safety Concerns. Roll Left to Right (QC): 3 Sit to Lying (QC): 3 Sit to Stand (QC): 3 Chair/Qhh-sx-Ktsof Xfer(QC): 3 Car Transfer (QC): 2 Gait Training Does the Patient Walk?: No and Walking Goal NOT indicated Distance: 6'x2 Walk 10 feet (QC): 88 Walk 50 ft with 2 Turns(QC): 88 Walk 150 ft (QC): 88 Walking 10ft/uneven surface-QC: 88 Gait Persons Needed: 2 Gait Assistive Device: Parallel Bars Wheelchair Training Does the Pt Use a Wheelchair?: Yes Wheel 50 ft with 2 turns (QC): 2 Wheel 150 ft (QC): 2 Type of Wheelchair: Manual Stair Training 1 Step (curb) (QC): 88 4 Steps (QC): 88 12 Steps (QC): 88 Balance Picking up an Object (QC): 88 ADL-Treatment Eating (QC): 4 (SUP during ice chip) Oral Hygiene (QC): 3 (based on clinical judgment, will require min A to begin) Bathing Location: R Arm, L Upper Leg, R Upper Leg, L Lower Leg (including foot), R Lower Leg (including foot), Chest, Abdomen, Perineal Area Shower/Bathe Self (QC): 3 (completes in shower room on supportive sc. Pt transfers with min A sit to stand from w/c at , and sc placed behind pt. Pt showers with mod A (assist with L arm and bottom). Pt give LHS for feet/ calves, still requiring min-mod A for sitting balance upon leaning. ) Upper Body Dressing (QC): 3 (mod A- guidance of R UE first, assist with pulling to axilla, pt able to complete L arm threading and over head. Assist with adjusting.) Lower Body Dressing (QC): 1 (Ax2 for assist in stance (max A) and LB dressing (max A)) On/Off Footwear (QC): 1 (TD shoes this date. Pt's laces replaced with elastic laces.) Toileting Hygiene (QC): 1 (TD in stance for bottom. 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
--- NOTE | 2020-04-12 13:51 | Cardiology Progress Note ---
Cardiology SOAP Progress Note Subjective: no cardiac complaints. Objective: I&O/Vital Signs 04/12/20 06:00 Temp 36.5 Pulse 80 Resp 18 B/P (MAP) 102/62 (75) Pulse Ox 98 O2 Delivery Room Air 04/12/20 00:00 Intake Total 720 ml Balance 720 ml Weight (Pounds): 258 Weight (Ounces): 15.0 Weight (Calculated Kilograms): 117.227867 Constitutional: appears stated age, AAO x 3; No apparent distress; well- developed, well-nourished Respiratory: chest is bilaterally symmetric, lungs clear to auscultation Cardiovascular: irregularly irregular, S1 and S2 Gastrointestional: soft, audible bowel sounds; No spleenomegaly Extremities: No clubbing, No cyanosis; no lower extremity edema bilateral; No significant edema Neurologic/Psychiatric: alert, oriented x 3, motor weakness Skin: normal color, warm/dry; No rash, No ulcerations A/P: Assessment/Dx: Acute stroke, Cardiomyopathy, Atrial fibrillation with rapid ventricular rate, Recent AV node ablation, BREAD ROOM HAND-D device Plan: Acute stroke, status post mechanical aspiration. Still has residual deficits. Aggressive inpatient rehabilitation. Cardiomyopathy, ROMULO inhibitor, beta evan. Atrial fibrillation with rapid ventricular rate, AV node ablation. We'll start oral anticoagulation when okay with neurology. Recent AV node ablation, BREAD ROOM HAND-D device, no active issues. Thank you for your consultation. Please call me if you have any questions. Corwin Pedraza MD, FACP, FACC, FSCAI, FHRS, CCDS Interventional Cardiology Cardiac Electrophysiology Vascular Medicine and Endovascular Interventions Edwin PEDRAZA MD Apr 12, 2020 13:51
--- NOTE | 2020-04-12 13:58 | Physical Therapy Daily Note ---
PT Daily Note-Current Subjective Patient in common area of rehab, just got done with OT, agrees to PT, has no complaints of pain at rest. Appearance Patient in recliner post tx with nurse call, phone, tray, all needs met, legs elevated, chair alarm on. Mental Status Patient Orientation: Person, Unable to Assess, Non-Verbal/Aphasic Transfers SCALE: Activities may be completed with or without assistive devices. 2-Actmqmgxdi-hpojach completes the activity by him/herself with no assistance from a helper. 5-Set-up or Clean-up Assistance-helper sets up or cleans up; patient completes activity. [place] assists only prior to or following the activity. 4-Supervision or Touching Assistance-helper provides verbal cues and/or touching/steadying and/or contact guard assistance as patient completes activity. Assistance may be provided throughout the activity or intermittently. 3-Partial/Moderate Assistance-helper does LESS THAN HALF the effort. [place] lifts, holds or supports trunk or limbs, but provides less than half the effort. 2-Substantial/Maximal Assistance-helper does MORE THAN HALF the effort. [place] lifts or holds trunk or limbs and provides more than half the effort. 0-Nuctsasfh-gfkayf does ALL the effort. Patient does none of the effort to complete the activity. Or, the assistance of 2 or more helpers is required for the patient to complete the activity. If activity was not attempted, code reason: 7-Patient Refused. 9-Not Applicable-not attempted and the patient did not perform the activity before the current illness, exacerbation or injury. 10-Not Attempted due to Environmental Limitations-(lack of equipment, weather restraints, etc.). 88-Not Attempted due to Medical Conditions or Safety Concerns. Sit to Stand (QC): 3 Chair/Eaf-ee-Psieh Xfer(QC): 3 Practiced stand pivot transfers to each side x5, cues for positioning and safety. Patient tends to be impulsive with transfers, leans to right side, min assist with performing transfers to the left side and mod assist to the right side. Wheelchair Training Does the Pt Use a Wheelchair?: Yes Wheel 50 ft with 2 turns (QC): 3 Wheel 150 ft (QC): 3 Type of Wheelchair: Manual 150'x2, patient is not able to propel and steer with his left leg. He needs repositioned frequently, slides down in the chair. Assessment Current Status: Fair Progress improving WC mobility PT Short Term Goals Short Term Goals Time Frame: Apr 18, 2020 Roll Left & Right: 3 Sit to lyin Lying to sitting on side of be: 3 Sit to stand: 3 Chair/qyo-zh-lcqmm transfer: 3 PT [facility] Goals [facility] Goals PT Brim Raiser Goals Time Frame: May 02, 2020 Roll Left & Right (QC): 3 (Zoya) Sit to Lying (QC): 3 (Zoya) Lying-Sitting on Side/Bed(QC): 3 (Zoya) Sit to Stand (QC): 3 (Zoya) Chair/Ggo-pd-Nnhji Xfer(QC): 3 (Zoya) Toilet Transfer (QC): 3 (Zoya) Car Transfer (QC): 3 (Zoya) Does the Patient Walk: No and Walking Goal NOT indicated Walk 10 feet (QC): 88 Walk 50ft with 2 Turns (QC): 88 Walk 150 ft (QC): 88 Walking 10ft on Uneven Surface: 88 1 Step (curb) (QC): 88 4 Steps (QC): 88 12 Steps (QC): 88 Picking up an Object (QC): 88 Wheel 50 feet with 2 turns (QC: 4 Wheel 150 feet: 4 PT Plan Problem List Problem List: Activity Tolerance, Functional Strength, Safety, Balance, Gait, Transfer, Bed Mobility, ROM Treatment/Plan Treatment Plan: Continue Plan of Care Treatment Plan: Bed Mobility, Education, Functional Activity [place], Functional Strength, Group Therapy, Gait, Safety, Therapeutic Exercise, Transfers Treatment Duration: May 01, 2020 Frequency: At least 5 of 7 days/Wk (IRF) Estimated Hrs Per Day: 1.5 hours per day Patient and/or Family Agrees t: Yes Safety Risks/Education Patient Education: Transfer Techniques, Correct Positioning, W/C Management, Safety Issues Teaching Recipient: Patient Teaching Methods: Demonstration, Discussion Response to Teaching: Reinforcement Needed Time/GCodes Time In: 1330 Time Out: 1400 Total Billed Treatment Time: 30 Total Billed Treatment 1 visit FA 30' DARRYL BARTLETT PT Apr 12, 2020 13:58
--- NOTE | 2020-04-12 14:01 | NUR ---
CM/SS ADMISSION Patient was admitted to ARU 04/10/20 from [facility] for CVA. Patient presented here 03/29 and was transferred to [facility] via air transport. He reportedly has history of stroke 2009 affecting right peripheral vision and 2014 affecting speech and aphasia. Patient's sister, whom he resides with, indicated to EMS it appeared patient had been noncompliant to his Rx anticoagulant for about a month. Other comorbidities are, in part, flaccid hemiplegia affecting right dominant side, aphasia, cardiac issues with defibrillator implanted at , HTN. Patient resides with his twin sister, Anabela Hollis and her spouse. The goal is that he return there at discharge depending on his level of recovery and maximum independent functioning. PCP: Kathleen SIMONS ARNP PHARMACY: [facility] INSURANCE: Uninsured. Per rn case manager hospice at [facility], patient had [facility] [employer] in 2019, but it was terminated as was his SSI because of an inheritance after his mother's . He reportedly was down to his last $4,000 and initiated a reapplication for Medicaid and SSI. This process has carried over to [facility] Financial Services/. DME: Patient indicates he had no DME prior to acute stroke. Therapy team to recommend appropriate assistive devices for patient's performance and safety. He will need an ultra light wheelchair on our unit for training purposes and for home if that is a good fit for needs. Approached Dir of Inpatient Services re wheelchair, completed inquiry with [facility] re same, await response. BARRIERS TO DISCHARGE GOALS AND PLANS: [facility] [place] at this time, no immediate funding for post hospital equipment, services, resources. Patient goal is to return home. Will continue to explore with family whether their former residential arrangement can be resumed with patient's new deficits and needs. Will explore [employer] TBI Waiver in hopes of getting [facility] approval to expedite in-home services once [employer] is reinstated. CONTACTS: Anabela Hollis, sister [address] [place], [place] [id number] c [phone] Patient understood the purpose and process of the weekly patient care conference and that his first review would be April 17.
[2020-04-12 17:08] VITALS: BP 106/66
[2020-04-13 05:09] VITALS: BP 126/76
--- NOTE | 2020-04-13 07:02 | PM&R Progress Note ---
Subjective HPI/CC On Admission Date Seen by Provider: Apr 13, 2020 Time Seen by Provider: 12:30 Subjective/Events-last exam 04/13/20: Right arm and right leg pain and issue Oxycodone not really helping Nerve pain so will give Gabapentin 04/12/20: Severe pain on right side Oxycodone ordered Participating in therapies well No other pain Pt doing pretty well Expressive aphasia is an issue WBC is 12.4 CMP normal Consulting cardiology Overall doing very well Conferred with RN Checked meds and labs Reviewed therapy notes Review of Systems General: Fatigue, Malaise Musculoskeletal: arm pain, leg pain Objective Exam Vital Signs Vital Signs Date Time Temp Pulse Resp B/P (MAP) Pulse Ox O2 Delivery O2 Flow Rate FiO2 04/13/20 17:55 36.3 79 18 105/62 (76) 96 Room Air Capillary Refill : Less Than 3 Seconds General Appearance: No Apparent Distress, WD/WN, Chronically ill HEENT: PERRL/EOMI, Normal ENT Inspection, Pharynx Normal Neck: Full Range of Motion, Normal Inspection, Non Tender, Supple, Carotid Bruit Respiratory: Chest Non Tender, Lungs Clear, Normal Breath Sounds, No Accessory Muscle Use, No Respiratory Distress Cardiovascular: Regular Rate, Rhythm, No Edema, No Gallop, No JVD, No Murmur, Normal Peripheral Pulses Gastrointestinal: Normal Bowel Sounds, No Organomegaly, No Pulsatile Mass, Non Tender, Soft Back: Normal Inspection, No CVA Tenderness, No Vertebral Tenderness Extremity: Normal Capillary Refill, Normal Inspection, Normal Range of Motion, Non Tender, No Calf Tenderness, No Pedal Edema Neurologic/Psychiatric: Alert, Normal Mood/Affect, Abnormal Gait, Aphasia, Depressed Affect, Disoriented, Motor Weakness (right sided flaccidity) Skin: Normal Color, Warm/Dry Lymphatic: No Adenopathy Results/Procedures Lab Patient resulted labs reviewed. FIM Transfers Therapy Code Descriptions/Definitions Functional [place] Measure: 0=Not Assessed/NA 4=Minimal Assistance 1=Total Assistance 5=Supervision or Setup 2=Maximal Assistance 6=Modified [place] 3=Moderate Assistance 7=Complete IndependenceSCALE: Activities may be completed with or without assistive devices. 7-Vefxzmrtve-uaofzaa completes the activity by him/herself with no assistance from a helper. 5-Set-up or Clean-up Assistance-helper sets up or cleans up; patient completes activity. [place] assists only prior to or following the activity. 4-Supervision or Touching Assistance-helper provides verbal cues and/or touching/steadying and/or contact guard assistance as patient completes activity. Assistance may be provided throughout the activity or intermittently. 3-Partial/Moderate Assistance-helper does LESS THAN HALF the effort. [place] lifts, holds or supports trunk or limbs, but provides less than half the effort. 2-Substantial/Maximal Assistance-helper does MORE THAN HALF the effort. [place] lifts or holds trunk or limbs and provides more than half the effort. 2-Sgwzkljot-fqvxqd does ALL the effort. Patient does none of the effort to complete the activity. Or, the assistance of 2 or more helpers is required for the patient to complete the activity. If activity was not attempted, code reason: 7-Patient Refused. 9-Not Applicable-not attempted and the patient did not perform the activity before the current illness, exacerbation or injury. 10-Not Attempted due to Environmental Limitations-(lack of equipment, weather restraints, etc.). 88-Not Attempted due to Medical Conditions or Safety Concerns. Roll Left to Right (QC): 3 Sit to Lying (QC): 3 Sit to Stand (QC): 3 Chair/Wxb-am-Xmtsi Xfer(QC): 3 Car Transfer (QC): 2 Gait Training Does the Patient Walk?: No and Walking Goal NOT indicated Distance: 6'x2 Walk 10 feet (QC): 88 Walk 50 ft with 2 Turns(QC): 88 Walk 150 ft (QC): 88 Walking 10ft/uneven surface-QC: 88 Gait Persons Needed: 2 Gait Assistive Device: Parallel Bars Wheelchair Training Does the Pt Use a Wheelchair?: Yes Wheel 50 ft with 2 turns (QC): 3 Wheel 150 ft (QC): 3 Type of Wheelchair: Manual Stair Training 1 Step (curb) (QC): 88 4 Steps (QC): 88 12 Steps (QC): 88 Balance Picking up an Object (QC): 88 ADL-Treatment Eating (QC): 4 (SUP during ice chip) Oral Hygiene (QC): 3 (based on clinical judgment, will require min A to begin) Bathing Location: R Arm, L Upper Leg, R Upper Leg, L Lower Leg (including foot), R Lower Leg (including foot), Chest, Abdomen, Perineal Area Shower/Bathe Self (QC): 3 (completes in shower room on supportive sc. Pt transf ers with min A sit to stand from w/c at gb, and sc placed behind pt. Pt showers with mod A (assist with L arm and bottom). Pt give LHS for feet/ calves, still requiring min-mod A for sitting balance upon leaning. ) Upper Body Dressing (QC): 3 (mod A- guidance of R UE first, assist with pulling to axilla, pt able to complete L arm threading and over head. Assist with adjusting.) Lower Body Dressing (QC): 1 (Ax2 for assist in stance (max A) and LB dressing (max A)Max A in bed for LB dressing 2nd tx.) On/Off Footwear (QC): 1 (TD shoes this date. Pt's laces replaced with elastic laces.max A in w/c 2nd tx.) Toileting Hygiene (QC): 1 (TD in stance for bottom. 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
[2020-04-13] MEDS: BISOPROLOL 5 MG TAB (ZEBETA) PO SCH (08:35)
[2020-04-13] MEDS: SENNA W/DOCUSATE (SENOKOT S) TABLET PO SCH ×2 (08:35→20:55)
[2020-04-13] MEDS: LOSARTAN 50 MG (COZAAR) TAB PO SCH (08:35)
[2020-04-13] MEDS: SPIRONOLACTONE 25 MG (ALDACTONE) TAB PO SCH (08:36)
[2020-04-13] MEDS: FUROSEMIDE 20 MG (LASIX) TAB PO SCH (08:36)
[2020-04-13] MEDS: amLODIPine 5 MG (NORVASC) TAB PO SCH (08:36)
[2020-04-13] MEDS: polyethylene glycoL POWDER 17 GM (MIRALAX) PACK PO SCH ×2 (08:36→20:55)
[2020-04-13] MEDS: APIXABAN 5 MG (ELIQUIS) TABLET PO SCH ×2 (08:36→20:55)
[2020-04-13] MEDS: ASPIRIN 81 MG CHEW (CHILDREN'S ASA) PO SCH (08:36)
[2020-04-13] MEDS: DOCUSATE SODIUM 100 MG (COLACE) CAP PO SCH ×2 (08:37→20:55)
[2020-04-13 08:38] VITALS: BP 106/71
--- NOTE | 2020-04-13 11:06 | Physical Therapy Daily Note ---
PT Daily Note-Current Subjective Pt in bed upon arrival. RN and SUPERVISOR MULTIFOCAL LENS request assistance w/ pt. Pt agrees to PT tx. Pain Numeric Pain Scale: 0-No Pain Location: No Pain Reported Mental Status Patient Orientation: Person, Unable to Assess Transfers SCALE: Activities may be completed with or without assistive devices. 6-Yaqvvjhwgf-delijvg completes the activity by him/herself with no assistance from a helper. 5-Set-up or Clean-up Assistance-helper sets up or cleans up; patient completes activity. [place] assists only prior to or following the activity. 4-Supervision or Touching Assistance-helper provides verbal cues and/or touching/steadying and/or contact guard assistance as patient completes activity. Assistance may be provided throughout the activity or intermittently. 3-Partial/Moderate Assistance-helper does LESS THAN HALF the effort. [place] lifts, holds or supports trunk or limbs, but provides less than half the effort. 2-Substantial/Maximal Assistance-helper does MORE THAN HALF the effort. [place] lifts or holds trunk or limbs and provides more than half the effort. 3-Ebpnxtdtq-rtfxxq does ALL the effort. Patient does none of the effort to complete the activity. Or, the assistance of 2 or more helpers is required for the patient to complete the activity. If activity was not attempted, code reason: 7-Patient Refused. 9-Not Applicable-not attempted and the patient did not perform the activity before the current illness, exacerbation or injury. 10-Not Attempted due to Environmental Limitations-(lack of equipment, weather restraints, etc.). 88-Not Attempted due to Medical Conditions or Safety Concerns. Roll Left & Right (QC): 2 Lying to Sitting/Side of Bed(Q: 2 Sit to Stand (QC): 2 Chair/Mwv-su-Lcnkk Xfer(QC): 2 Treatments Pt incontinent upon arrival. RN and SUPERVISOR MULTIFOCAL LENS request assistance w/ NEWSPAPER OR PERIODICAL EDITOR leading for bed mobility and transfer. Pt given VC's during bed mobility to increase pt ability to assist. Pt unable to follow VC's. Pt able to bridge, using BLE's, to assist staff w/ getting pants pulled up. NEWSPAPER OR PERIODICAL EDITOR must hold pt RLE in place while pt completes bridging. Pt transfers to w/c w/ MaxA x2; VC's given to pt to assist w/ stand pivot, but pt does not follow. Pt up in w/c w/ bedside table and call light w/in reach and all needs met, at end of tx. Assessment Current Status: Poor Progress, Fair Progress Pt does not comply w/ VC's given. Pt appears agitated and pt demeanor projects agitation as well. 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 PT [facility] Goals Time Frame: May 02, 2020 Roll Left & Right (QC): 3 (Zoya) Sit to Lying (QC): 3 (Zoya) Lying-Sitting on Side/Bed(QC): 3 (Zoya) Sit to Stand (QC): 3 (Zoya) Chair/Yzg-te-Xxrjb Xfer(QC): 3 (Zoya) Toilet Transfer (QC): 3 (Zoya) Car Transfer (QC): 3 (Zoya) Does the Patient Walk: No and Walking Goal NOT indicated Walk 10 feet (QC): 88 Walk 50ft with 2 Turns (QC): 88 Walk 150 ft (QC): 88 Walking 10ft on Uneven Surface: 88 1 Step (curb) (QC): 88 4 Steps (QC): 88 12 Steps (QC): 88 Picking up an Object (QC): 88 Wheel 50 feet with 2 turns (QC: 4 Wheel 150 feet: 4 PT Plan Problem List Problem List: Activity Tolerance, Functional Strength, Safety, Balance, Transfer, Bed Mobility, ROM Treatment/Plan Treatment Plan: Continue Plan of Care Treatment Plan: Bed Mobility, Education, Functional Activity [place], Functional Strength, Group Therapy, Gait, Safety, Therapeutic Exercise, Transfers Treatment Duration: May 01, 2020 Frequency: At least 5 of 7 days/Wk (IRF) Estimated Hrs Per Day: 1.5 hours per day Patient and/or Family Agrees t: Yes Safety Risks/Education Patient Education: Transfer Techniques, Correct Positioning, Safety Issues Teaching Recipient: Patient Teaching Methods: Discussion Response to Teaching: Unable to Return Demonstration, Reinforcement Needed Time/GCodes Time In: 916 Time Out: 09 Total Billed Treatment Time: 15 Total Billed Treatment 1, FA (15m) FRANKI DOWNING NEWSPAPER OR PERIODICAL EDITOR Apr 13, 2020 11:06
[2020-04-13] MEDS: ACETAMINOPHEN 325 MG TABLET PO PRN ×2 (11:20→16:13)
[2020-04-13] MEDS: GABAPENTIN 100 MG (NEURONTIN) CAP PO SCH ×2 (12:59→20:55)
[2020-04-13] MEDS: DICLOFENAC 1% GEL 100 GM (VOLTAREN) TUBE TOP SCH ×3 (13:00→20:56)
--- NOTE | 2020-04-13 16:42 | Cardiology Progress Note ---
Cardiology SOAP Progress Note Subjective: No cardiac complaints. Objective: I&O/Vital Signs 04/13/20 04/13/20 04/13/20 05:09 08:38 09:20 Temp 36.0 Pulse 80 80 Resp 18 18 B/P (MAP) 126/76 (93) 106/71 (83) Pulse Ox 97 97 O2 Delivery Room Air Room Air Room Air 04/13/20 00:00 Intake Total 1240 ml Balance 1240 ml Weight (Pounds): 258 Weight (Ounces): 15.0 Weight (Calculated Kilograms): 117.243295 Constitutional: appears stated age, AAO x 3; No apparent distress; well- developed, well-nourished Respiratory: chest is bilaterally symmetric, lungs clear to auscultation Cardiovascular: irregularly irregular, S1 and S2 Gastrointestional: soft, audible bowel sounds; No spleenomegaly Extremities: No clubbing, No cyanosis; no lower extremity edema bilateral; No significant edema Neurologic/Psychiatric: alert, oriented x 3, motor weakness Skin: normal color, warm/dry; No rash, No ulcerations A/P: Assessment/Dx: Acute stroke, Cardiomyopathy, Atrial fibrillation with rapid ventricular rate, Recent AV node ablation, GUM PULLER-D device Plan: Acute stroke, status post mechanical aspiration. Still has residual deficits. Aggressive inpatient rehabilitation. Cardiomyopathy, ROMULO inhibitor, beta evan. Atrial fibrillation with rapid ventricular rate, AV node ablation. We'll start oral anticoagulation when okay with neurology. Recent AV node ablation, GUM PULLER-D device, no active issues. Thank you for your consultation. Please call me if you have any questions. Corwin Pedraza MD, FACP, FACC, FSCAI, FHRS, CCDS Interventional Cardiology Cardiac Electrophysiology Vascular Medicine and Endovascular Interventions Edwin PDERAZA MD Apr 13, 2020 16:42
[2020-04-13 17:55] VITALS: BP 105/62
[2020-04-13] MEDS: LACTULOSE SYRUP 10GM/15ML (ENULOSE) 30ML UDC PO PRN (18:39)
[2020-04-14 05:15] VITALS: BP 109/68
[2020-04-14] MEDS: APIXABAN 5 MG (ELIQUIS) TABLET PO SCH ×2 (08:29→20:13)
[2020-04-14] MEDS: DOCUSATE SODIUM 100 MG (COLACE) CAP PO SCH ×2 (08:29→19:57)
[2020-04-14] MEDS: FUROSEMIDE 20 MG (LASIX) TAB PO SCH (08:29)
[2020-04-14] MEDS: GABAPENTIN 100 MG (NEURONTIN) CAP PO SCH ×2 (08:29→20:14)
[2020-04-14] MEDS: ASPIRIN 81 MG CHEW (CHILDREN'S ASA) PO SCH (08:29)
[2020-04-14] MEDS: SENNA W/DOCUSATE (SENOKOT S) TABLET PO SCH ×2 (08:30→19:58)
[2020-04-14] MEDS: polyethylene glycoL POWDER 17 GM (MIRALAX) PACK PO SCH ×2 (08:30→19:57)
[2020-04-14] MEDS: SPIRONOLACTONE 25 MG (ALDACTONE) TAB PO SCH (08:30)
[2020-04-14] MEDS: LACTULOSE SYRUP 10GM/15ML (ENULOSE) 30ML UDC PO PRN (08:37)
[2020-04-14] MEDS: DICLOFENAC 1% GEL 100 GM (VOLTAREN) TUBE TOP SCH ×4 (08:38→20:14)
[2020-04-14 08:40] VITALS: BP 100/61
[2020-04-14 09:38] VITALS: BP 96/52
[2020-04-14] MEDS: LOSARTAN 50 MG (COZAAR) TAB PO SCH (09:38)
[2020-04-14] MEDS: amLODIPine 5 MG (NORVASC) TAB PO SCH (09:38)
[2020-04-14] MEDS: BISOPROLOL 5 MG TAB (ZEBETA) PO SCH (09:39)
--- NOTE | 2020-04-14 11:27 | PM&R Progress Note ---
Subjective HPI/CC On Admission Date Seen by Provider: Apr 14, 2020 Time Seen by Provider: 14:00 Subjective/Events-last exam 04/14/20: Monitoring BP Pain right side still present and will increase Gabapentin 04/13/20: Right arm and right leg pain and issue Oxycodone not really helping Nerve pain so will give Gabapentin 04/12/20: Severe pain on right side Oxycodone ordered Participating in therapies well No other pain Pt doing pretty well Expressive aphasia is an issue WBC is 12.4 CMP normal Consulting cardiology Overall doing very well Conferred with RN Checked meds and labs Reviewed therapy notes Review of Systems General: Fatigue Neurological: Weakness, Incoordination, Change in speech Objective Exam Vital Signs Vital Signs Date Time Temp Pulse Resp B/P (MAP) Pulse Ox O2 Delivery O2 Flow Rate FiO2 04/14/20 16:37 36.4 80 18 105/73 (84) 97 Room Air Capillary Refill : Less Than 3 Seconds General Appearance: No Apparent Distress, WD/WN, Chronically ill HEENT: PERRL/EOMI, Normal ENT Inspection, Pharynx Normal Neck: Full Range of Motion, Normal Inspection, Non Tender, Supple, Carotid Bruit Respiratory: Chest Non Tender, Lungs Clear, Normal Breath Sounds, No Accessory Muscle Use, No Respiratory Distress Cardiovascular: Regular Rate, Rhythm, No Edema, No Gallop, No JVD, No Murmur, Normal Peripheral Pulses Gastrointestinal: Normal Bowel Sounds, No Organomegaly, No Pulsatile Mass, Non Tender, Soft Back: Normal Inspection, No CVA Tenderness, No Vertebral Tenderness Extremity: Normal Capillary Refill, Normal Inspection, Normal Range of Motion, Non Tender, No Calf Tenderness, No Pedal Edema Neurologic/Psychiatric: Alert, Normal Mood/Affect, Abnormal Gait, Aphasia, Depressed Affect, Disoriented, Motor Weakness (right sided flaccidity) Skin: Normal Color, Warm/Dry Lymphatic: No Adenopathy Results/Procedures Lab Patient resulted labs reviewed. FIM Transfers Therapy Code Descriptions/Definitions Functional [place] Measure: 0=Not Assessed/NA 4=Minimal Assistance 1=Total Assistance 5=Supervision or Setup 2=Maximal Assistance 6=Modified [place] 3=Moderate Assistance 7=Complete IndependenceSCALE: Activities may be completed with or without assistive devices. 3-Kctsleqagb-tuxnvft completes the activity by him/herself with no assistance from a helper. 5-Set-up or Clean-up Assistance-helper sets up or cleans up; patient completes activity. [place] assists only prior to or following the activity. 4-Supervision or Touching Assistance-helper provides verbal cues and/or touching/steadying and/or contact guard assistance as patient completes activity. Assistance may be provided throughout the activity or intermittently. 3-Partial/Moderate Assistance-helper does LESS THAN HALF the effort. [place] lifts, holds or supports trunk or limbs, but provides less than half the effort. 2-Substantial/Maximal Assistance-helper does MORE THAN HALF the effort. [place] lifts or holds trunk or limbs and provides more than half the effort. 8-Vrsosjqxs-ewwrsg does ALL the effort. Patient does none of the effort to complete the activity. Or, the assistance of 2 or more helpers is required for the patient to complete the activity. If activity was not attempted, code reason: 7-Patient Refused. 9-Not Applicable-not attempted and the patient did not perform the activity before the current illness, exacerbation or injury. 10-Not Attempted due to Environmental Limitations-(lack of equipment, weather restraints, etc.). 88-Not Attempted due to Medical Conditions or Safety Concerns. Roll Left to Right (QC): 2 Sit to Lying (QC): 3 Sit to Stand (QC): 2 Chair/Oyd-rl-Mfijz Xfer(QC): 2 Car Transfer (QC): 2 Gait Training Does the Patient Walk?: No and Walking Goal NOT indicated Distance: 6'x2 Walk 10 feet (QC): 88 Walk 50 ft with 2 Turns(QC): 88 Walk 150 ft (QC): 88 Walking 10ft/uneven surface-QC: 88 Gait Persons Needed: 2 Gait Assistive Device: Parallel Bars Wheelchair Training Does the Pt Use a Wheelchair?: Yes Wheel 50 ft with 2 turns (QC): 3 Wheel 150 ft (QC): 3 Type of Wheelchair: Manual Stair Training 1 Step (curb) (QC): 88 4 Steps (QC): 88 12 Steps (QC): 88 Balance Picking up an Object (QC): 88 ADL-Treatment Eating (QC): 4 (SUP during ice chip) Oral Hygiene (QC): 3 (based on clinical judgment, will require min A to begin) Bathing Location: R Arm, L Upper Leg, R Upper Leg, L Lower Leg (including foot), R Lower Leg (including foot), Chest, Abdomen, Perineal Area Shower/Bathe Self (QC): 3 (completes in shower room on supportive sc. Pt transfers with min A sit to stand from w/c at gb, and sc placed behind pt. Pt showers with mod A (assist with L arm and bottom). Pt give LHS for feet/ calves, still requiring min-mod A for sitting balance upon leaning. ) Upper Body Dressing (QC): 3 (mod A- guidance of R UE first, assist with pulling to axilla, pt able to complete L arm threading and over head. Assist with adjusting.) Lower Body Dressing (QC): 1 (Ax2 for assist in stance (max A) and LB dressing (max A)Max A in bed for LB dressing 2nd tx.) On/Off Footwear (QC): 1 (TD shoes this date. Pt's laces replaced with elastic laces.max A in w/c 2nd tx.) Toileting Hygiene (QC): 1 (TD in stance for bottom. 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 Defib in place Cardiomyopathy HTN Plan: Monitor dysphagia Cardiology consultation IRF protocol 04/11/20: Monitor BP Appreciate Cardiology 04/12/20: Monitor closely Pain management 04/13/20: Gabapentin Oxycodone 04/14/20: Increase Gabapentin Oxycodone BM regimen to increase today may need supp (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
--- NOTE | 2020-04-14 12:38 | Cardiology Progress Note ---
Cardiology SOAP Progress Note Subjective: Denies any cardiac complaints. Objective: I&O/Vital Signs 04/14/20 04/14/20 04/14/20 04/14/20 05:15 08:40 09:22 09:38 Temp 36.4 Pulse 80 Resp 18 B/P (MAP) 109/68 (82) 100/61 (74) 96/52 (67) Pulse Ox 96 O2 Delivery Room Air Room Air 04/13/20 23:59 Intake Total 900 ml Balance 900 ml Weight (Pounds): 258 Weight (Ounces): 15.0 Weight (Calculated Kilograms): 117.982300 Constitutional: appears stated age, AAO x 3; No apparent distress; well- developed, well-nourished Respiratory: chest is bilaterally symmetric, lungs clear to auscultation Cardiovascular: irregularly irregular, S1 and S2 Gastrointestional: soft, audible bowel sounds; No spleenomegaly Extremities: No clubbing, No cyanosis; no lower extremity edema bilateral; No significant edema Neurologic/Psychiatric: alert, oriented x 3, motor weakness Skin: normal color, warm/dry; No rash, No ulcerations A/P: Assessment/Dx: Acute stroke, Cardiomyopathy, Atrial fibrillation with rapid ventricular rate, Recent AV node ablation, SEISMIC SURVEY ASSISTANT-D device Plan: Acute stroke, status post mechanical aspiration. Still has residual deficits. Aggressive inpatient rehabilitation. Cardiomyopathy, ROMULO inhibitor, beta evan. Atrial fibrillation with rapid ventricular rate, EKG shows atrial fibrillation, V paced rhythm. AV node ablation. On Eliquis. Recent AV node ablation, SEISMIC SURVEY ASSISTANT-D device, no active issues. Thank you for your consultation. Please call me if you have any questions. Corwin Pedraza MD, FACP, FACC, FSCAI, FHRS, CCDS Interventional Cardiology Cardiac Electrophysiology Vascular Medicine and Endovascular Interventions Edwin PEDRAZA MD Apr 14, 2020 12:38
[2020-04-14 12:54] VITALS: BP 97/58
--- NOTE | 2020-04-14 15:19 | NUR ---
DR. WATTS INFORMED OF LOW BP THIS AM AND THAT COZAAR, NORVASC, AND BISOPROLOL WERE HELD. PER DR. WATTS, PLACE PARAMETERS ON COZAAR, NORVASC, AND BISOPROLOL- HOLD FOR SBP LESS THAN 100.
[2020-04-14 16:37] VITALS: BP 105/73
--- NOTE | 2020-04-14 18:22 | NUR ---
NO RESULTS FROM STOOL SOFTENERS/LAXATIVES AND LACTULOSE THIS AM. DULCOLAX SUPPOSITORY GIVEN.
--- NOTE | 2020-04-14 19:31 | NUR ---
LARGE BM AFTER DULCOLAX SUPPOSITORY.
[2020-04-15 05:17] VITALS: BP 94/63
--- NOTE | 2020-04-15 05:46 | PM&R Progress Note ---
Subjective HPI/CC On Admission Date Seen by Provider: Apr 15, 2020 Time Seen by Provider: 09:00 Subjective/Events-last exam 04/15/20: Gabapentin maintained Oxycodone maintained Confusion noted? 04/14/20: Monitoring BP Pain right side still present and will increase Gabapentin 04/13/20: Right arm and right leg pain and issue Oxycodone not really helping Nerve pain so will give Gabapentin 04/12/20: Severe pain on right side Oxycodone ordered Participating in therapies well No other pain Pt doing pretty well Expressive aphasia is an issue WBC is 12.4 CMP normal Consulting cardiology Overall doing very well Conferred with RN Checked meds and labs Reviewed therapy notes Review of Systems General: Fatigue Neurological: Weakness, Incoordination Objective Exam Vital Signs Vital Signs Date Time Temp Pulse Resp B/P (MAP) Pulse Ox O2 Delivery O2 Flow Rate FiO2 04/15/20 21:17 Room Air 04/15/20 17:59 36.5 80 18 106/70 (82) 99 Capillary Refill : Less Than 3 Seconds General Appearance: No Apparent Distress, WD/WN, Chronically ill HEENT: PERRL/EOMI, Normal ENT Inspection, Pharynx Normal Neck: Full Range of Motion, Normal Inspection, Non Tender, Supple, Carotid Bruit Respiratory: Chest Non Tender, Lungs Clear, Normal Breath Sounds, No Accessory Muscle Use, No Respiratory Distress Cardiovascular: Regular Rate, Rhythm, No Edema, No Gallop, No JVD, No Murmur, Normal Peripheral Pulses Gastrointestinal: Normal Bowel Sounds, No Organomegaly, No Pulsatile Mass, Non Tender, Soft Back: Normal Inspection, No CVA Tenderness, No Vertebral Tenderness Extremity: Normal Capillary Refill, Normal Inspection, Normal Range of Motion, Non Tender, No Calf Tenderness, No Pedal Edema Neurologic/Psychiatric: Alert, Normal Mood/Affect, Abnormal Gait, Aphasia, Depressed Affect, Disoriented, Motor Weakness (right sided flaccidity) Skin: Normal Color, Warm/Dry Lymphatic: No Adenopathy Results/Procedures Lab Laboratory Tests 04/15/20 05:57 Patient resulted labs reviewed. FIM Transfers Therapy Code Descriptions/Definitions Functional [place] Measure: 0=Not Assessed/NA 4=Minimal Assistance 1=Total Assistance 5=Supervision or Setup 2=Maximal Assistance 6=Modified [place] 3=Moderate Assistance 7=Complete IndependenceSCALE: Activities may be completed with or without assistive devices. 0-Ltgzvufkwa-wlezkte completes the activity by him/herself with no assistance from a helper. 5-Set-up or Clean-up Assistance-helper sets up or cleans up; patient completes activity. [place] assists only prior to or following the activity. 4-Supervision or Touching Assistance-helper provides verbal cues and/or touching/steadying and/or contact guard assistance as patient completes activity. Assistance may be provided throughout the activity or intermittently. 3-Partial/Moderate Assistance-helper does LESS THAN HALF the effort. [place] lifts, holds or supports trunk or limbs, but provides less than half the effort. 2-Substantial/Maximal Assistance-helper does MORE THAN HALF the effort. [place] lifts or holds trunk or limbs and provides more than half the effort. 7-Lgjwnvyrf-jtxlmx does ALL the effort. Patient does none of the effort to complete the activity. Or, the assistance of 2 or more helpers is required for the patient to complete the activity. If activity was not attempted, code reason: 7-Patient Refused. 9-Not Applicable-not attempted and the patient did not perform the activity before the current illness, exacerbation or injury. 10-Not Attempted due to Environmental Limitations-(lack of equipment, weather restraints, etc.). 88-Not Attempted due to Medical Conditions or Safety Concerns. Roll Left to Right (QC): 2 Sit to Lying (QC): 3 Sit to Stand (QC): 2 Chair/Tjb-cs-Ufulc Xfer(QC): 2 Car Transfer (QC): 2 Gait Training Does the Patient Walk?: No and Walking Goal NOT indicated Distance: 6'x2 Walk 10 feet (QC): 88 Walk 50 ft with 2 Turns(QC): 88 Walk 150 ft (QC): 88 Walking 10ft/uneven surface-QC: 88 Gait Persons Needed: 2 Gait Assistive Device: Parallel Bars Wheelchair Training Does the Pt Use a Wheelchair?: Yes Wheel 50 ft with 2 turns (QC): 3 Wheel 150 ft (QC): 3 Type of Wheelchair: Manual Stair Training 1 Step (curb) (QC): 88 4 Steps (QC): 88 12 Steps (QC): 88 Balance Picking up an Object (QC): 88 ADL-Treatment Eating (QC): 4 (SUP during ice chip) Oral Hygiene (QC): 3 (based on clinical judgment, will require min A to begin) Bathing Location: R Arm, L Upper Leg, R Upper Leg, L Lower Leg (including foot), R Lower Leg (including foot), Chest, Abdomen, Perineal Area Shower/Bathe Self (QC): 3 (completes in shower room on supportive sc. Pt transfers with min A sit to stand from w/c at gb, and sc placed behind pt. Pt showers with mod A (assist with L arm and bottom). Pt give LHS for feet/ calves, still requiring min-mod A for sitting balance upon leaning. ) Upper Body Dressing (QC): 3 (mod A- guidance of R UE first, assist with pulling to axilla, pt able to complete L arm threading and over head. Assist with adjusting.) Lower Body Dressing (QC): 1 (Ax2 for assist in stance (max A) and LB dressing (max A)Max A in bed for LB dressing 2nd tx.) On/Off Footwear (QC): 1 (TD shoes this date. Pt's laces replaced with elastic laces.max A in w/c 2nd tx.) Toileting Hygiene (QC): 1 (TD in stance for bottom. 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 Defib in place Cardiomyopathy HTN Plan: Monitor dysphagia Cardiology consultation IRF protocol 04/11/20: Monitor BP Appreciate Cardiology 04/12/20: Monitor closely Pain management 04/13/20: Gabapentin Oxycodone 04/14/20: Increase Gabapentin Oxycodone BM regimen to increase today may need supp 04/15/20: BM++ Monitor pain of right side (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
[2020-04-15 06:23] LABS: BASOPHILS # (AUTO) 0.1 10^3/uL (0.0-0.1); BASOPHILS % (AUTO) 1 % (0-10); EOSINOPHILS # (AUTO) 0.2 10^3/uL (0.0-0.3); EOSINOPHILS % (AUTO) 2 % (0-10); HEMATOCRIT 46 % (40-54); HEMOGLOBIN 14.9 g/dL (13.3-17.7); LYMPHOCYTES # (AUTO) 2.3 10^3/uL (1.0-4.0); LYMPHOCYTES % (AUTO) 24 % (12-44); MEAN CORPUSCULAR HEMOGLOBIN 29 pg (25-34); MEAN CORPUSCULAR HGB CONC 32 g/dL (32-36); MEAN CORPUSCULAR VOLUME 90 fL (80-99); MEAN PLATELET VOLUME 11.9 fL (9.0-12.2); MONOCYTES % (AUTO) 10 % (0-12); NEUTROPHILS # (AUTO) 5.9 10^3/uL (1.8-7.8); NEUTROPHILS % (AUTO) 62 % (42-75); PLATELET COUNT 292 10^3/uL (130-400); WHITE BLOOD COUNT 9.5 10^3/uL (4.3-11.0)
[2020-04-15 06:34] LABS: ALBUMIN 3.3 GM/DL (3.2-4.5)
[2020-04-15 06:35] LABS: CHLORIDE 100 MMOL/L (98-107); POTASSIUM 4.7 MMOL/L (3.6-5.0); SODIUM 135 MMOL/L (135-145)
[2020-04-15 06:36] LABS: CALCIUM 8.7 MG/DL (8.5-10.1)
[2020-04-15 06:37] LABS: GLUCOSE 80 MG/DL (70-105); TOTAL PROTEIN 6.5 GM/DL (6.4-8.2)
[2020-04-15 06:38] LABS: CARBON DIOXIDE 25 MMOL/L (21-32)
[2020-04-15 06:39] LABS: BILIRUBIN,TOTAL 0.5 MG/DL (0.1-1.0)
[2020-04-15 06:40] LABS: ALKALINE PHOSPHATASE 121 U/L (40-136)
[2020-04-15 06:41] LABS: CREATININE SERUM 0.96 MG/DL (0.60-1.30); GFR ESTIMATED > 60
[2020-04-15 06:42] LABS: BUN/CREATININE RATIO 22
[2020-04-15 06:44] LABS: ALANINE AMINOTRANSFERASE 93 U/L (0-55)
[2020-04-15 09:30] VITALS: BP 97/62
--- NOTE | 2020-04-15 09:44 | Speech Therapy Daily Note ---
Speech Daily Progress Note Subjective Date Seen by Provider: Apr 15, 2020 Time Seen by Provider: 00:30 Patient was laying in his bed resting, however he was more alert this date and participated well. Objective Patient answered simple y/n questions at 75% accuracy without cues. Patient answered general information fill in the blank at 25% with answer of "I'm not sure" frequently. Patient demo utilization of small sips at 80% with 10% verbal cues. Assessment Assessment Current Status: Fair Progress Treatment Plan Continue Plan of Care Speech Short Term Goals Short Term Goals Short Term Goals 1) The patient will complete OME for improved speech production at each session with 80% or greater accuracy. 2) The patient will complete word finding tasks with 80% or greater accuracy. 3) The patient will complete expressive language tasks 80% or greater accuracy. 4) The patient will tolerate least restrictive diet level without s/s of aspiration at 80% or greater accuracy. 5) The patient will utilize compensatory strategies as trained 80% or greater accuracy. Speech Senior Living Goals Media [employer] Assistant Goals Patient will improve cognitive-communication abilities for completion of daily needs with minimal assist. Patient will maintain adequate nutrition/hydration via safe effective swallow function. Speech-Plan Patient/Family Goals Patient/Family Goals: Patient plans on returning to his home where he lives with his sister and brother in law. Treatment Plan Speech Therapy Treatment Plan: Continue Plan of Care Treatment Duration: Apr 26, 2020 Frequency: 4 times per week (Patient will receive skilled ST 4-5x per week) Estimated Hrs Per Day: .5 hour per day Rehab Potential: Guarded Barriers to Learning: Patient's recent CVA which is his 3rd Pt/Family Agrees to Plan: Yes Safety Risks/Education Teaching Recipient: Patient Teaching Methods: Demonstration, Discussion Response to Teaching: Verbalize Understanding, Return Demonstration, Reinforcement Needed Education Topics Provided: Continued communication of his wants/needs Continued safety with oral intake Time Speech Therapy Time In: 08:30 Speech Therapy Time Out: 09:00 Total Billed Time: 30 Billed Treatment Time 1, TYRONE, FIDEL ORTEGA Apr 15, 2020 09:44
[2020-04-15] MEDS: GABAPENTIN 100 MG (NEURONTIN) CAP PO SCH ×2 (09:57→20:50)
[2020-04-15] MEDS: SENNA W/DOCUSATE (SENOKOT S) TABLET PO SCH ×2 (09:57→20:50)
[2020-04-15] MEDS: polyethylene glycoL POWDER 17 GM (MIRALAX) PACK PO SCH ×2 (09:57→20:50)
[2020-04-15] MEDS: DOCUSATE SODIUM 100 MG (COLACE) CAP PO SCH ×2 (09:57→20:50)
[2020-04-15] MEDS: FUROSEMIDE 20 MG (LASIX) TAB PO SCH (09:58)
[2020-04-15] MEDS: APIXABAN 5 MG (ELIQUIS) TABLET PO SCH ×2 (09:58→20:50)
[2020-04-15] MEDS: ASPIRIN 81 MG CHEW (CHILDREN'S ASA) PO SCH (09:58)
[2020-04-15] MEDS: SPIRONOLACTONE 25 MG (ALDACTONE) TAB PO SCH (09:58)
[2020-04-15] MEDS: LOSARTAN 50 MG (COZAAR) TAB PO SCH (10:04)
[2020-04-15] MEDS: amLODIPine 5 MG (NORVASC) TAB PO SCH (10:05)
[2020-04-15] MEDS: BISOPROLOL 5 MG TAB (ZEBETA) PO SCH (10:05)
[2020-04-15] MEDS: DICLOFENAC 1% GEL 100 GM (VOLTAREN) TUBE TOP SCH ×4 (10:05→20:51)
--- NOTE | 2020-04-15 11:53 | Physical Therapy Daily Note ---
PT Daily Note-Current Subjective Patient in bed pre tx, agrees to PT, has 7/10 pain in all of right side, will be co-treating with OT due to poor patient mobility, strength, endurance, sitting and standing balance, the need to coordinate UE and LE during activity. Appearance Patient in recliner post tx with nurse call, phone, tray, all needs met. Mental Status Patient Orientation: Person, Unable to Assess, Non-Verbal/Aphasic Transfers SCALE: Activities may be completed with or without assistive devices. 6-Nmeedydqyo-rldkiok completes the activity by him/herself with no assistance from a helper. 5-Set-up or Clean-up Assistance-helper sets up or cleans up; patient completes activity. [place] assists only prior to or following the activity. 4-Supervision or Touching Assistance-helper provides verbal cues and/or touching/steadying and/or contact guard assistance as patient completes acti vity. Assistance may be provided throughout the activity or intermittently. 3-Partial/Moderate Assistance-helper does LESS THAN HALF the effort. [place] lifts, holds or supports trunk or limbs, but provides less than half the effort. 2-Substantial/Maximal Assistance-helper does MORE THAN HALF the effort. [place] lifts or holds trunk or limbs and provides more than half the effort. 4-Bbltimjji-zjcvpt does ALL the effort. Patient does none of the effort to complete the activity. Or, the assistance of 2 or more helpers is required for the patient to complete the activity. If activity was not attempted, code reason: 7-Patient Refused. 9-Not Applicable-not attempted and the patient did not perform the activity before the current illness, exacerbation or injury. 10-Not Attempted due to Environmental Limitations-(lack of equipment, weather restraints, etc.). 88-Not Attempted due to Medical Conditions or Safety Concerns. Roll Left & Right (QC): 3 Lying to Sitting/Side of Bed(Q: 3 Sit to Stand (QC): 3 Chair/Dnn-my-Uekqj Xfer(QC): 3 Mod assist for supine to sit, min assist for transfer to right side, mod assist for transfer to left side. Patient transferred to , taken to shower room, undressed, shower, dress, taken to therapy gym. Gait Training Distance: 6'x3 Gait Assistive Device: Parallel Bars max assist, assist with balance and to keep right knee from buckling and to advance his right foot, patient experienced some pain in his right hip but he is not able to elaborate on it due to his communication difficulties Wheelchair Training Does the Pt Use a Wheelchair?: Yes Wheel 50 ft with 2 turns (QC): 2 Wheel 150 ft (QC): 2 Type of Wheelchair: Manual Treatments PT worked on ambulation, transfers, WC mobility, balance and standing during bathing, OT worked on bathing and dressing, UE positioning and safety during ambulation and transfers. Assessment Current Status: Poor Progress no change in mobility PT Short Term Goals Short Term Goals Time Frame: Apr 18, 2020 Roll Left & Right: 3 Sit to lyin Lying to sitting on side of be: 3 Sit to stand: 3 Chair/njt-ot-ckfxm transfer: 3 PT Shelter Goals Kiss Machine Operator Goals PT Shelter Goals Time Frame: May 02, 2020 Roll Left & Right (QC): 3 (Zoya) Sit to Lying (QC): 3 (Zoya) Lying-Sitting on Side/Bed(QC): 3 (Zoya) Sit to Stand (QC): 3 (Zoya) Chair/Wzw-ew-Tnhbo Xfer(QC): 3 (Zoya) Toilet Transfer (QC): 3 (Zoya) Car Transfer (QC): 3 (Zoya) Does the Patient Walk: No and Walking Goal NOT indicated Walk 10 feet (QC): 88 Walk 50ft with 2 Turns (QC): 88 Walk 150 ft (QC): 88 Walking 10ft on Uneven Surface: 88 1 Step (curb) (QC): 88 4 Steps (QC): 88 12 Steps (QC): 88 Picking up an Object (QC): 88 Wheel 50 feet with 2 turns (QC: 4 Wheel 150 feet: 4 PT Plan Problem List Problem List: Activity Tolerance, Functional Strength, Safety, Balance, Gait, Transfer, Bed Mobility, ROM Treatment/Plan Treatment Plan: Continue Plan of Care Treatment Plan: Bed Mobility, Education, Functional Activity [place], Functional Strength, Group Therapy, Gait, Safety, Therapeutic Exercise, Transfers Treatment Duration: May 01, 2020 Frequency: At least 5 of 7 days/Wk (IRF) Estimated Hrs Per Day: 1.5 hours per day Patient and/or Family Agrees t: Yes Safety Risks/Education Patient Education: Gait Training, Transfer Techniques, Correct Positioning, W/C Management, Safety Issues Teaching Recipient: Patient Teaching Methods: Demonstration, Discussion Response to Teaching: Reinforcement Needed Time/GCodes Time In: 0900 Time Out: 1000 Total Billed Treatment Time: 60 Total Billed Treatment 1 visit FA 60' co-treated for 60' DARRYL BARTLETT PT Apr 15, 2020 11:53
--- NOTE | 2020-04-15 13:31 | Occupational Ther Daily Note ---
OT Current Status-Daily Note Subjective Pt agrees to tx. Pt states pain in R side of body: UE/ LE. [id number] (60): OT/ PT co-treat. OT works on ADL treatment, UE movement, problem solving, and PT addresses fx transfers, w/c mobility, balance. [id number] (20): OT individual tx Mental Status/Objective Patient Orientation: Person, Place, Situation ADL-Treatment Therapy Code Descriptions/Definitions Functional [place] Measure: 0=Not Assessed/NA 4=Minimal Assistance 1=Total Assistance 5=Supervision or Setup 2=Maximal Assistance 6=Modified [place] 3=Moderate Assistance 7=Complete IndependenceSCALE: Activities may be completed with or without assistive devices. 8-Kvguxhybiq-ewwvpus completes the activity by him/herself with no assistance from a helper. 5-Set-up or Clean-up Assistance-helper sets up or cleans up; patient completes activity. [place] assists only prior to or following the activity. 4-Supervision or Touching Assistance-helper provides verbal cues and/or touching/steadying and/or contact guard assistance as patient completes activity. Assistance may be provided throughout the activity or intermittently. 3-Partial/Moderate Assistance-helper does LESS THAN HALF the effort. [place] lift s, holds or supports trunk or limbs, but provides less than half the effort. 2-Substantial/Maximal Assistance-helper does MORE THAN HALF the effort. [place] lifts or holds trunk or limbs and provides more than half the effort. 5-Vxmlisbdy-dvhxco does ALL the effort. Patient does none of the effort to complete the activity. Or, the assistance of 2 or more helpers is required for the patient to complete the activity. If activity was not attempted, code reason: 7-Patient Refused. 9-Not Applicable-not attempted and the patient did not perform the activity before the current illness, exacerbation or injury. 10-Not Attempted due to Environmental Limitations-(lack of equipment, weather restraints, etc.). 88-Not Attempted due to Medical Conditions or Safety Concerns. Bathing Location: R Arm, L Upper Leg, R Upper Leg, L Lower Leg (including foot), R Lower Leg (including foot), Chest, Abdomen, Buttocks, Perineal Area Shower/Bathe Self (QC): 3 (min A for completing bottom with thoroughness and L arm) Upper Body Dressing (QC): 3 (mod A (R UE assist)) Lower Body Dressing (QC): 1 (max A RLE, min A LLE. TD in stance due to need of 2 people for stance/ pulling up over hips.) On/Off Footwear: 3 (Doffs socks with use of dressing stick/ s/u and min A. min A: OT completes R shoe/ sock, pt able to complete L sock/ shoe. OT and pt address R shoe/ sock in later treatment session: pt able to bring RLE across to L knee. Dycem utilized on knee- able to stabilize RLE on knee and able to place shoe with min A. ) Toileting Hygiene (QC): 1 (TD due to need for 2 people) Toilet Transfer (QC): 2 (pt's w/c placed near gbs, pt sit to stand with mod A, w/c swapped for shower chair) Other Treatment OT/ PT co-treat: Pt transfers from bed to w/c with PT assist. OT gathers clothing and items for shower. Completes in shower room as outlined. Pt in w/c upon donning clothes, wheels to gym with assist from PT. Pt completes 3 sets of ambulation with OT guiding RUE and PT addressing ambulation with OT following with w/c. Pt requires rest, stating pain in RUE/ LE. Pt returns to room, SPT to chair with all needs met, call light in reach, reclined and R UE propped. OT individual tx: [id number]. Pt supine to sit with min A. Gets to EOB with Max A. Pt SPT with mod A to w/c placed on L side. Pt wheels out to gym with 2 instances of stopping and readjusting in w/c as pt utilizes LLE to propel and with increased pressure, pt's bottom slowly progresses toward edge of w/c seat. Pt adjusts with cues. Cues for positioning of w/c brakes. While in gym, dycem utilized for RLE placement on knee to complete R shoe/ sock donning with min A this time. Pt left with PT end of session. Education OT Patient Education: Correct positioning, Exercise program, Modified ADL techniques, Progress toward Goal/Update tx plan, Purpose of tx/functional activities, Safety issues, Transfer techniques, Use of adapted equipment Teaching Recipient: Patient Teaching Methods: Demonstration, Discussion Response to Teaching: Verbalize Understanding, Return Demonstration OT Short Term Goals Short Term Goals Eatin Oral hygiene: 5 Toileting hygiene: 2 Shower/bathe self: 2 Upper body dressin Lower body dressin Putting on/taking off footwear: 2 OT Correction Goals Correction Goals Time Frame: Apr 24, 2020 Eating (QC): 6 Oral Hygiene (QC): 6 Toileting Hygiene (QC): 3 Shower/Bathe Self (QC): 3 Upper Body Dressing (QC): 6 Lower Body Dressing (QC): 3 On/Off Footwear (QC): 6 Additional Goals: 1-Demonstrate ADL Tasks, 2-Verbalize Understanding, 3-ImproveStrength/[place] 1=Demonstrate adherence to instructed precautions during ADL tasks. 2=Patient will verbalize/demonstrate understanding of assistive devices/modifications for ADL. 3=Patient will improve strength/tolerance for activity to enable patient to perform ADL's. OT Education/Plan Problem List/Assessment Assessment: Decreased Activ Tolerance, Decreased UE Strength, Dependent Transfers, Impaired Bed Mobility, Impaired Coordination, Impaired Funct Balance, Impaired I ADL's, Impaired Self-Care Skills, Visual-Perceptual Deficit Discharge Recommendations Plan/Recommendations: Continue POC Therapy Discharge Recommendati: 24 Hour Supervision, Home & Family, Post Acute OT Equpiment Recommendations-D/C: Lead Web Application Developer, Dressing Stick Treatment Plan/Plan of Care Treatment,Training & Education: Yes Patient would benefit from OT for education, treatment and training to promote independence in ADL's, mobility, safety and/or upper extremity function for ADL's. Plan of Care: ADL Retraining, Caregiver Training, Concurrent Therapy, Functional Mobility, Group Exercise/Act as Ind, Orthotic Fitting/Training, UE Funct Exercise/Act, UE Neuromus Re-Ed/Coord, Visual/Perceptual Retrain, W/C Management Training Treatment Duration: Apr 24, 2020 Frequency: At least 5 of 7 days/Wk (IRF) Estimated Hrs Per Day: 1.5 hours per day Agreement: Yes Rehab Potential: Guarded Time/GCodes Start Time: 09:00 (1300) Stop Time: 10:00 (1320) Total Time Billed (hr/min): 80 Billed Treatment Time [id number] (60): OT/ PT co-treat. OT works on ADL treatment, UE movement, problem solving, and PT addresses fx transfers, w/c mobility, balance. [id number] (20): OT individual tx 1, ADL 3, EX (60) 1, ADL, FA (20) Total: 80 FATIMAH KERNS OTR Apr 15, 2020 13:31
--- NOTE | 2020-04-15 13:33 | Physical Therapy Daily Note ---
PT Daily Note-Current Subjective Patient in therapy gym pre tx, agrees to PT, just got done with OT, voices no complaints of pain. Appearance Patient in recliner post tx with nurse call, phone, tray, all needs met, chair alarm on. Mental Status Patient Orientation: Person, Unable to Assess, Non-Verbal/Aphasic Transfers SCALE: Activities may be completed with or without assistive devices. 4-Tlgtozxjra-dzpgyeb completes the activity by him/herself with no assistance from a helper. 5-Set-up or Clean-up Assistance-helper sets up or cleans up; patient completes activity. [place] assists only prior to or following the activity. 4-Supervision or Touching Assistance-helper provides verbal cues and/or touching/steadying and/or contact guard assistance as patient completes activity. Assistance may be provided throughout the activity or intermittently. 3-Partial/Moderate Assistance-helper does LESS THAN HALF the effort. [place] lifts, holds or supports trunk or limbs, but provides less than half the effort. 2-Substantial/Maximal Assistance-helper does MORE THAN HALF the effort. [place] lifts or holds trunk or limbs and provides more than half the effort. 5-Kcfyhxyvg-yjfsgw does ALL the effort. Patient does none of the effort to complete the activity. Or, the assistance of 2 or more helpers is required for the patient to complete the activity. If activity was not attempted, code reason: 7-Patient Refused. 9-Not Applicable-not attempted and the patient did not perform the activity before the current illness, exacerbation or injury. 10-Not Attempted due to Environmental Limitations-(lack of equipment, weather restraints, etc.). 88-Not Attempted due to Medical Conditions or Safety Concerns. Sit to Stand (QC): 3 Chair/Qww-zp-Qkume Xfer(QC): 3 Wheelchair Training Does the Pt Use a Wheelchair?: Yes Wheel 50 ft with 2 turns (QC): 3 Wheel 150 ft (QC): 3 Type of Wheelchair: Manual Exercises Supine Ex: Quad Set, Glut sets Supine Reps: 15 (in recliner with legs elevated) Seated Therapy Exercises: Long arc quads, Hip flexion Seated Reps: 15 (PROM, patient encouraged to assist but he seemed unable) Treatments WC mobility, transfers, LE exercise Assessment Current Status: Poor Progress no change in mobility, no voluntary movement in right leg yet. PT Short Term Goals Short Term Goals Time Frame: Apr 18, 2020 Roll Left & Right: 3 Sit to lyin Lying to sitting on side of be: 3 Sit to stand: 3 Chair/seb-cn-kkytm transfer: 3 PT Half-Way Goals Half-Way Goals PT Traffic Police Officer Goals Time Frame: May 02, 2020 Roll Left & Right (QC): 3 (Zoya) Sit to Lying (QC): 3 (Zoya) Lying-Sitting on Side/Bed(QC): 3 (Zoya) Sit to Stand (QC): 3 (Zoya) Chair/Lgj-fj-Ouioi Xfer(QC): 3 (Zoya) Toilet Transfer (QC): 3 (Zoya) Car Transfer (QC): 3 (Zoya) Does the Patient Walk: No and Walking Goal NOT indicated Walk 10 feet (QC): 88 Walk 50ft with 2 Turns (QC): 88 Walk 150 ft (QC): 88 Walking 10ft on Uneven Surface: 88 1 Step (curb) (QC): 88 4 Steps (QC): 88 12 Steps (QC): 88 Picking up an Object (QC): 88 Wheel 50 feet with 2 turns (QC: 4 Wheel 150 feet: 4 PT Plan Problem List Problem List: Activity Tolerance, Functional Strength, Safety, Balance, Gait, Transfer, Bed Mobility, ROM Treatment/Plan Treatment Plan: Continue Plan of Care Treatment Plan: Bed Mobility, Education, Functional Activity [place], Functional Strength, Group Therapy, Gait, Safety, Therapeutic Exercise, Transfers Treatment Duration: May 01, 2020 Frequency: At least 5 of 7 days/Wk (IRF) Estimated Hrs Per Day: 1.5 hours per day Patient and/or Family Agrees t: Yes Safety Risks/Education Patient Education: Transfer Techniques, Correct Positioning, W/C Management, Safety Issues Teaching Recipient: Patient Teaching Methods: Demonstration, Discussion Response to Teaching: Reinforcement Needed Time/GCodes Time In: 1320 Time Out: 1335 Total Billed Treatment Time: 15 Total Billed Treatment 1 visit FA DARRYL JORGE PT Apr 15, 2020 13:33
[2020-04-15 17:59] VITALS: BP 106/70
[2020-04-16 06:00] VITALS: BP 102/67
[2020-04-16] MEDS: ACETAMINOPHEN 325 MG TABLET PO PRN (06:45)
--- NOTE | 2020-04-16 08:33 | PM&R Progress Note ---
Subjective HPI/CC On Admission Date Seen by Provider: Apr 16, 2020 Time Seen by Provider: 08:40 Subjective/Events-last exam 04/16/20: Right-sided pain still so increased Gabapentin to 300 Mg BID Xanax will help too Oxycodone also helps 04/15/20: Gabapentin maintained Oxycodone maintained Confusion noted? 04/14/20: Monitoring BP Pain right side still present and will increase Gabapentin 04/13/20: Right arm and right leg pain and issue Oxycodone not really helping Nerve pain so will give Gabapentin 04/12/20: Severe pain on right side Oxycodone ordered Participating in therapies well No other pain Pt doing pretty well Expressive aphasia is an issue WBC is 12.4 CMP normal Consulting cardiology Overall doing very well Conferred with RN Checked meds and labs Reviewed therapy notes Review of Systems General: Fatigue, Malaise Neurological: Weakness, Incoordination Objective Exam Vital Signs Vital Signs Date Time Temp Pulse Resp B/P (MAP) Pulse Ox O2 Delivery O2 Flow Rate FiO2 04/17/20 06:08 36.4 78 20 96/59 (71) 97 Room Air Capillary Refill : Less Than 3 Seconds General Appearance: No Apparent Distress, WD/WN, Chronically ill HEENT: PERRL/EOMI, Normal ENT Inspection, Pharynx Normal Neck: Full Range of Motion, Normal Inspection, Non Tender, Supple, Carotid Bruit Respiratory: Chest Non Tender, Lungs Clear, Normal Breath Sounds, No Accessory Muscle Use, No Respiratory Distress Cardiovascular: Regular Rate, Rhythm, No Edema, No Gallop, No JVD, No Murmur, Normal Peripheral Pulses Gastrointestinal: Normal Bowel Sounds, No Organomegaly, No Pulsatile Mass, Non Tender, Soft Back: Normal Inspection, No CVA Tenderness, No Vertebral Tenderness Extremity: Normal Capillary Refill, Normal Inspection, Normal Range of Motion, Non Tender, No Calf Tenderness, No Pedal Edema Neurologic/Psychiatric: Alert, Normal Mood/Affect, Abnormal Gait, Aphasia, Depressed Affect, Disoriented, Motor Weakness (right sided flaccidity) Skin: Normal Color, Warm/Dry Lymphatic: No Adenopathy Results/Procedures Lab Patient resulted labs reviewed. FIM Transfers Therapy Code Descriptions/Definitions Functional [place] Measure: 0=Not Assessed/NA 4=Minimal Assistance 1=Total Assistance 5=Supervision or Setup 2=Maximal Assistance 6=Modified [place] 3=Moderate Assistance 7=Complete IndependenceSCALE: Activities may be completed with or without assistive devices. 9-Nkoqvupfpx-uihxhpe completes the activity by him/herself with no assistance f rom a helper. 5-Set-up or Clean-up Assistance-helper sets up or cleans up; patient completes activity. [place] assists only prior to or following the activity. 4-Supervision or Touching Assistance-helper provides verbal cues and/or touching/steadying and/or contact guard assistance as patient completes activity. Assistance may be provided throughout the activity or intermittently. 3-Partial/Moderate Assistance-helper does LESS THAN HALF the effort. [place] lifts, holds or supports trunk or limbs, but provides less than half the effort. 2-Substantial/Maximal Assistance-helper does MORE THAN HALF the effort. [place] lifts or holds trunk or limbs and provides more than half the effort. 3-Qctpumyil-vrbyia does ALL the effort. Patient does none of the effort to complete the activity. Or, the assistance of 2 or more helpers is required for the patient to complete the activity. If activity was not attempted, code reason: 7-Patient Refused. 9-Not Applicable-not attempted and the patient did not perform the activity before the current illness, exacerbation or injury. 10-Not Attempted due to Environmental Limitations-(lack of equipment, weather restraints, etc.). 88-Not Attempted due to Medical Conditions or Safety Concerns. Roll Left to Right (QC): 3 Sit to Lying (QC): 3 Sit to Stand (QC): 3 Chair/Ohk-lx-Ibdqa Xfer(QC): 3 Car Transfer (QC): 2 Gait Training Does the Patient Walk?: No and Walking Goal NOT indicated Distance: 6'x3 Walk 10 feet (QC): 88 Walk 50 ft with 2 Turns(QC): 88 Walk 150 ft (QC): 88 Walking 10ft/uneven surface-QC: 88 Gait Persons Needed: 2 Gait Assistive Device: Parallel Bars Wheelchair Training Does the Pt Use a Wheelchair?: Yes Wheel 50 ft with 2 turns (QC): 3 Wheel 150 ft (QC): 3 Type of Wheelchair: Manual Stair Training 1 Step (curb) (QC): 88 4 Steps (QC): 88 12 Steps (QC): 88 Balance Picking up an Object (QC): 88 ADL-Treatment Eating (QC): 4 (SUP during ice chip) Oral Hygiene (QC): 3 (based on clinical judgment, will require min A to begin) Bathing Location: R Arm, L Upper Leg, R Upper Leg, L Lower Leg (including foot), R Lower Leg (including foot), Chest, Abdomen, Buttocks, Perineal Area Shower/Bathe Self (QC): 3 (min A for completing bottom with thoroughness and L arm) Upper Body Dressing (QC): 3 (mod A (R UE assist)) Lower Body Dressing (QC): 1 (max A RLE, min A LLE. TD in stance due to need of 2 people for stance/ pulling up over hips.) On/Off Footwear (QC): 3 (Doffs socks with use of dressing stick/ s/u and min A. min A: OT completes R shoe/ sock, pt able to complete L sock/ shoe. OT and pt address R shoe/ sock in later treatment session: pt able to bring RLE across to L knee. Dycem utilized on knee- able to stabilize RLE on knee and able to place shoe with min A. 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 Defib in place Cardiomyopathy HTN Plan: Monitor dysphagia Cardiology consultation IRF protocol 04/11/20: Monitor BP Appreciate Cardiology 04/12/20: Monitor closely Pain management 04/13/20: Gabapentin Oxycodone 04/14/20: Increase Gabapentin Oxycodone BM regimen to increase today may need supp 04/15/20: BM++ Monitor pain of right side 04/16/20: Increase dose of Neurontin Maintain aggressive rehab (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
[2020-04-16] MEDS: BISOPROLOL 5 MG TAB (ZEBETA) PO SCH (08:38)
[2020-04-16] MEDS: amLODIPine 5 MG (NORVASC) TAB PO SCH (08:38)
[2020-04-16] MEDS: FUROSEMIDE 20 MG (LASIX) TAB PO SCH (08:38)
[2020-04-16] MEDS: LOSARTAN 50 MG (COZAAR) TAB PO SCH (08:38)
[2020-04-16] MEDS: ALPRAZolam 0.25 MG (XANAX) TAB PO PRN (08:38)
[2020-04-16] MEDS: SENNA W/DOCUSATE (SENOKOT S) TABLET PO SCH ×2 (08:38→20:27)
[2020-04-16] MEDS: DOCUSATE SODIUM 100 MG (COLACE) CAP PO SCH ×2 (08:38→20:27)
[2020-04-16] MEDS: ASPIRIN 81 MG CHEW (CHILDREN'S ASA) PO SCH (08:38)
[2020-04-16] MEDS: APIXABAN 5 MG (ELIQUIS) TABLET PO SCH ×2 (08:38→20:27)
[2020-04-16] MEDS: polyethylene glycoL POWDER 17 GM (MIRALAX) PACK PO SCH ×2 (08:38→20:26)
[2020-04-16] MEDS: GABAPENTIN 100 MG (NEURONTIN) CAP PO SCH ×2 (08:38→20:27)
[2020-04-16] MEDS: DICLOFENAC 1% GEL 100 GM (VOLTAREN) TUBE TOP SCH ×4 (08:39→20:27)
[2020-04-16] MEDS: SPIRONOLACTONE 25 MG (ALDACTONE) TAB PO SCH (08:39)
--- NOTE | 2020-04-16 09:22 | Physical Therapy Daily Note ---
PT Daily Note-Current Subjective Patient in bed pre tx, agrees to PT, has no complaints of pain but indicates that he has urinated in his brief and his bed is soaked. Will be co-treating with OT due to poor patient mobility, strength, endurance, balance, right hemiparesis, the need to coordinate UE and LE during activity. Patient has to roll several times and perform bridging to get changed and get his shorts on. Appearance Patient in recliner post tx with nurse call, phone, tray, will continue to work with OT for a bit. Transfers SCALE: Activities may be completed with or without assistive devices. 8-Vmgulnehsx-kuoilmm completes the activity by him/herself with no assistance from a helper. 5-Set-up or Clean-up Assistance-helper sets up or cleans up; patient completes activity. [place] assists only prior to or following the activity. 4-Supervision or Touching Assistance-helper provides verbal cues and/or touching/steadying and/or contact guard assistance as patient completes activity. Assistance may be provided throughout the activity or intermittently. 3-Partial/Moderate Assistance-helper does LESS THAN HALF the effort. [place] lifts, holds or supports trunk or limbs, but provides less than half the effort. 2-Substantial/Maximal Assistance-helper does MORE THAN HALF the effort. [place] lifts or holds trunk or limbs and provides more than half the effort. 4-Gulvrzawc-amkljh does ALL the effort. Patient does none of the effort to complete the activity. Or, the assistance of 2 or more helpers is required for the patient to complete the activity. If activity was not attempted, code reason: 7-Patient Refused. 9-Not Applicable-not attempted and the patient did not perform the activity before the current illness, exacerbation or injury. 10-Not Attempted due to Environmental Limitations-(lack of equipment, weather restraints, etc.). 88-Not Attempted due to Medical Conditions or Safety Concerns. Roll Left & Right (QC): 3 Lying to Sitting/Side of Bed(Q: 3 Sit to Stand (QC): 3 Chair/Eie-af-Mwugj Xfer(QC): 3 Gait Training Distance: 20'x3 Walk 10 feet (QC): 2 Gait Assistive Device: Walker Jose WC follow, right side knee immobilizer, needs assist with weight shifting and advancing his right leg as well as balance in general. Wheelchair Training Does the Pt Use a Wheelchair?: Yes Wheel 50 ft with 2 turns (QC): 3 Wheel 150 ft (QC): 3 Type of Wheelchair: Manual Exercises standing in parallel bars x3 working on balance while performing an OT activity (scanning, finding objects) Treatments PT worked on rolling, transfers, WC mobility, ambulation, OT worked on dressing, changing brief and cleaning, UE positioning and safety during activity, standing activity. Assessment Current Status: Poor Progress Patient ambulated but this probably wont be a realistic activity for him to do at home, for now it will help encourage balance and neuropasticity. PT Short Term Goals Short Term Goals Time Frame: Apr 18, 2020 Roll Left & Right: 3 Sit to lyin Lying to sitting on side of be: 3 Sit to stand: 3 Chair/vnh-eg-rqsyl transfer: 3 PT Snf Goals Snf Goals PT Pest Management Supervisor Goals Time Frame: May 02, 2020 Roll Left & Right (QC): 3 (Zoya) Sit to Lying (QC): 3 (Zoya) Lying-Sitting on Side/Bed(QC): 3 (Zoya) Sit to Stand (QC): 3 (Zoya) Chair/Axe-hu-Jrwcr Xfer(QC): 3 (Zoya) Toilet Transfer (QC): 3 (Zoya) Car Transfer (QC): 3 (Zoya) Does the Patient Walk: No and Walking Goal NOT indicated Walk 10 feet (QC): 88 Walk 50ft with 2 Turns (QC): 88 Walk 150 ft (QC): 88 Walking 10ft on Uneven Surface: 88 1 Step (curb) (QC): 88 4 Steps (QC): 88 12 Steps (QC): 88 Picking up an Object (QC): 88 Wheel 50 feet with 2 turns (QC: 4 Wheel 150 feet: 4 PT Plan Problem List Problem List: Activity Tolerance, Functional Strength, Safety, Balance, Gait, T ransfer, Bed Mobility, ROM Treatment/Plan Treatment Plan: Continue Plan of Care Treatment Plan: Bed Mobility, Education, Functional Activity [place], Functional Strength, Group Therapy, Gait, Safety, Therapeutic Exercise, Transfers Treatment Duration: May 01, 2020 Frequency: At least 5 of 7 days/Wk (IRF) Estimated Hrs Per Day: 1.5 hours per day Patient and/or Family Agrees t: Yes Safety Risks/Education Patient Education: Gait Training, Transfer Techniques, Correct Positioning, W/C Management, Safety Issues Teaching Recipient: Patient Teaching Methods: Demonstration, Discussion Response to Teaching: Reinforcement Needed Time/GCodes Time In: 0800 Time Out: 0900 Total Billed Treatment Time: 60 Total Billed Treatment 1 visit FA 60' co-treated for 60' DARRYL BARTLETT PT Apr 16, 2020 09:22
--- NOTE | 2020-04-16 09:26 | Cardiology Progress Note ---
Subjective Date Seen by Provider: Apr 16, 2020 Time Seen by Provider: 09:25 Subjective/Events-last exam Patient sitting in chair, denies any chest pain or dyspnea. Objective-Cardiology Exam Last Set of Vital Signs Vital Signs 04/16/20 04/16/20 06:00 09:00 Temp 36.4 Pulse 80 Resp 20 B/P (MAP) 102/67 (79) Pulse Ox 96 O2 Delivery Room Air Capillary Refill : Less Than 3 Seconds I&O Intake and Output 04/16/20 00:00 Intake Total 1230 ml Output Total 200 ml Balance 1030 ml Intake Oral 1230 ml Output Urine Total 200 ml # Urine Diapers 7 General: Alert, Oriented X3, Cooperative HEENT: Atraumatic, PERRLA Neck: Supple, No JVD, No Thyromegaly Lungs: Clear to Auscultation, Normal Air Movement Heart: Regular Rate, Normal S1, Normal S2, No Murmurs Abdomen: Normal Bowel Sounds, Soft, No Tenderness, No Hepatosplenomegaly, No Masses Extremities: No Edema Skin: No Rashes, No Significant Lesion Neuro: Other (right side hemiparesis) A/P-Cardiology Admission Diagnosis CVA Cardiomyopathy Atrial fibrillation Assessment/Plan Acute CVA, status post mechanical aspiration done at [facility]. Still has residual deficits, right sided weakness. Aggressive inpatient rehabilitation. Cardiomyopathy, maintained on ROMULO inhibitor, beta evan. Atrial fibrillation with rapid ventricular rate, EKG shows atrial fibrillation, V paced rhythm. AV node ablation. On Eliquis. Recent AV node ablation SAMPLER RADIOACTIVE WASTE-D device, no active issues. Patient was seen and evaluated with [place], examination performed, management plan was discussed, agree with the current scribed note, I made few changes to the note using Italic font Patient was seen at bedside, doing well Recovering slowly. No new complaint Continue on current medication and monitor Clinical Quality Measures DVT/VTE Risk/Contraindication: Risk Factor Score Per Nursin RFS Level Per Nursing on Admit: 4+=Very High ITALIA MORFIN Apr 16, 2020 9:26 am DEVON CHAN MD Apr 16, 2020 11:59 am
--- NOTE | 2020-04-16 09:28 | Occupational Ther Daily Note ---
OT Current Status-Daily Note Subjective Pt in bed upon entry. Pt agrees to tx. Pt states pain in R side, per nursing pt has had pain medication. OT/ PT co-treat.[id number]. OT addresses ADLs, UE movmeent, problem solving, vi sual scanning, safety and PT addresses gait, fx transfers, balance, etc. OT individual tx following co-treat: [id number]. Mental Status/Objective Patient Orientation: Person, Place, Situation ADL-Treatment Therapy Code Descriptions/Definitions Functional [place] Measure: 0=Not Assessed/NA 4=Minimal Assistance 1=Total Assistance 5=Supervision or Setup 2=Maximal Assistance 6=Modified [place] 3=Moderate Assistance 7=Complete IndependenceSCALE: Activities may be completed with or without assistive devices. 0-Pcburpbncp-yauveqc completes the activity by him/herself with no assistance from a helper. 5-Set-up or Clean-up Assistance-helper sets up or cleans up; patient completes activity. [place] assists only prior to or following the activity. 4-Supervision or Touching Assistance-helper provides verbal cues and/or touching/steadying and/or contact guard assistance as patient completes activity. Assistance may be provided throughout the activity or intermittently. 3-Partial/Moderate Assistance-helper does LESS THAN HALF the effort. [place] lifts, holds or supports trunk or limbs, but provides less than half the effort. 2-Substantial/Maximal Assistance-helper does MORE THAN HALF the effort. [place] lifts or holds trunk or limbs and provides more than half the effort. 4-Doueibmtp-vguqwd does ALL the effort. Patient does none of the effort to complete the activity. Or, the assistance of 2 or more helpers is required for the patient to complete the activity. If activity was not attempted, code reason: 7-Patient Refused. 9-Not Applicable-not attempted and the patient did not perform the activity before the current illness, exacerbation or injury. 10-Not Attempted due to Environmental Limitations-(lack of equipment, weather restraints, etc.). 88-Not Attempted due to Medical Conditions or Safety Concerns. Oral Hygiene (QC): 4 (SBA with cues for adaptive technique- pt places toothpaste under R hand, sqeezes into tub with L and scrapes up with toothbrush. Pt completes with SBA.) Upper Body Dressing (QC): 3 (min A for R hand threading.) Lower Body Dressing (QC): 2 (Completes in bed. Pt able to doff with max A. Don pants in bed with OT threading BLE (increased movement of RLE this date with increased hip flexion / assist with threading). Pt able to bridge and bring over hips with L UE) On/Off Footwear: 5 (s/u footwear (shoes only)) Toileting Hygiene (QC): 5 (completes bottom/ salvador area in bed with s/u. ) Toilet Transfer (QC): 7 (denies need, soiled upon entry.) Other Treatment Pt in bed. Pt states pain/ need for bathroom. Pt later states already soiled. Pt is changed in bed as above with noted increased active movement of R hip flexors which assists in donning pants. Pt supine to sit with min A. Pt transfers bed to w/c with SPT, assist from PT. Pt dresses UE in chair with increased IND, dons shoes with s/u- use of dycem and elastic laces. Pt wheels self to gym with 2 instances of hips reaching edge of chair. Pt requires cues for safety/ locking of brakes/ cues for process of scooting back in chair- completes with cues. Pt stands at parallel bars with PT addressing/ blocking RLE and OT addressing scanning patterns (pt successful with 1/4 attempts of scanning, cues for safety due to decreased awareness/ takes L hand from supportive parallel bars) and RUE placement. PT dons RLE knee brace/ OT dons R shoulder sling to address sublux while standing. Pt ambulates with quad cane and max A x2 with w/c to follow. Pt requires max cues. Pt returns to room. SPT to recliner. OT individual tx; pt is educated on adaptive oral care, completes in chair. Pt educated on self-range with max cues/ SUP for safety/ cues to slow down. Pt and OT discuss home supports; pt states Anabela and both work through day and pt will be required to care for self. SW is notified of statement due to increased expressive aphasia possibly limiting clarity. Pt is left in recliner with RUE supported, all needs met, call light in reach, chair alarm on with LEs elevated. Education OT Patient Education: Correct positioning, Exercise program, Home exercise program, Modified ADL techniques, Progress toward Goal/Update tx plan, Purpose of tx/functional activities, Safety issues, Transfer techniques, Use of adapted equipment Teaching Recipient: Patient Teaching Methods: Demonstration, Discussion Response to Teaching: Verbalize Understanding, Return Demonstration OT Short Term Goals Short Term Goals Eatin Oral hygiene: 5 Toileting hygiene: 2 Shower/bathe self: 2 Upper body dressin Lower body dressin Putting on/taking off footwear: 2 OT Skin Former Goals Skin Former Goals Time Frame: Apr 24, 2020 Eating (QC): 6 Oral Hygiene (QC): 6 Toileting Hygiene (QC): 3 Shower/Bathe Self (QC): 3 Upper Body Dressing (QC): 6 Lower Body Dressing (QC): 3 On/Off Footwear (QC): 6 Additional Goals: 1-Demonstrate ADL Tasks, 2-Verbalize Understanding, 3- ImproveStrength/[place] 1=Demonstrate adherence to instructed precautions during ADL tasks. 2=Patient will verbalize/demonstrate understanding of assistive devices/modifications for ADL. 3=Patient will improve strength/tolerance for activity to enable patient to perform ADL's. OT Education/Plan Problem List/Assessment Assessment: Decreased Activ Tolerance, Decreased Safety Aware, Decreased UE Strength, Dependent Transfers, Impaired Bed Mobility, Impaired Coordination, Impaired Funct Balance, Impaired I ADL's, Impaired Self-Care Skills, Restricted Funct UE ROM, Visual-Perceptual Deficit Discharge Recommendations Plan/Recommendations: Continue POC Therapy Discharge Recommendati: 24 Hour Supervision, Scheduled Assistance, Assi sted Living, Bath Aide, Home & Family, Post Acute OT Equpiment Recommendations-D/C: Bedside Commode, Dressing Stick Treatment Plan/Plan of Care Treatment,Training & Education: Yes Patient would benefit from OT for education, treatment and training to promote independence in ADL's, mobility, safety and/or upper extremity function for ADL's. Plan of Care: ADL Retraining, Caregiver Training, Concurrent Therapy, Functional Mobility, Group Exercise/Act as Ind, Orthotic Fitting/Training, UE Funct Exercise/Act, UE Neuromus Re-Ed/Coord, Visual/Perceptual Retrain, W/C Management Training Treatment Duration: Apr 24, 2020 Frequency: At least 5 of 7 days/Wk (IRF) Estimated Hrs Per Day: 1.5 hours per day Agreement: Yes Rehab Potential: Guarded Time/GCodes Start Time: 08:00 Stop Time: 09:15 Total Time Billed (hr/min): 75 Billed Treatment Time OT/ PT co-treat.[id number]. OT addresses ADLs, UE movmeent, problem solving, visual scanning, safety and PT addresses gait, fx transfers, balance, etc. OT individual tx following co-treat: [id number]. 1, ADL 2 (30), NM 3 (45)= 75 FATIMAH KERNS OTR Apr 16, 2020 09:28
--- NOTE | 2020-04-16 13:35 | Physical Therapy Daily Note ---
PT Daily Note-Current Subjective Patient in recliner pre tx, agrees to PT, has no complaints of pain but would like to get back into the bed. Appearance Patient in bed post tx with nurse call, phone, tray, all needs met. Mental Status Patient Orientation: Person, Unable to Assess, Non-Verbal/Aphasic Transfers SCALE: Activities may be completed with or without assistive devices. 8-Ovwtiwupmj-rqtkgxx completes the activity by him/herself with no assistance from a helper. 5-Set-up or Clean-up Assistance-helper sets up or cleans up; patient completes activity. [place] assists only prior to or following the activity. 4-Supervision or Touching Assistance-helper provides verbal cues and/or touching/steadying and/or contact guard assistance as patient completes acti vity. Assistance may be provided throughout the activity or intermittently. 3-Partial/Moderate Assistance-helper does LESS THAN HALF the effort. [place] lifts, holds or supports trunk or limbs, but provides less than half the effort. 2-Substantial/Maximal Assistance-helper does MORE THAN HALF the effort. [place] lifts or holds trunk or limbs and provides more than half the effort. 0-Uheiqjuqy-lcrkfj does ALL the effort. Patient does none of the effort to complete the activity. Or, the assistance of 2 or more helpers is required for the patient to complete the activity. If activity was not attempted, code reason: 7-Patient Refused. 9-Not Applicable-not attempted and the patient did not perform the activity before the current illness, exacerbation or injury. 10-Not Attempted due to Environmental Limitations-(lack of equipment, weather restraints, etc.). 88-Not Attempted due to Medical Conditions or Safety Concerns. Sit to Lying (QC): 3 Sit to Stand (QC): 3 Chair/Bqn-sj-Kqwzs Xfer(QC): 3 Exercises PROM RLE in all planes Treatments transfers, bed mobility, LE PROM Assessment Current Status: Fair Progress improving transfers PT Short Term Goals Short Term Goals Time Frame: Apr 18, 2020 Roll Left & Right: 3 Sit to lyin Lying to sitting on side of be: 3 Sit to stand: 3 Chair/lro-iy-dskjw transfer: 3 PT [place]ph[place] Product Consultant Goals Sephora Product Consultant Goals PT [facility] Goals Time Frame: May 02, 2020 Roll Left & Right (QC): 3 (Zoya) Sit to Lying (QC): 3 (Zoya) Lying-Sitting on Side/Bed(QC): 3 (Zoya) Sit to Stand (QC): 3 (Zoya) Chair/Sar-dn-Ynlsm Xfer(QC): 3 (Zoya) Toilet Transfer (QC): 3 (Zoya) Car Transfer (QC): 3 (Zoya) Does the Patient Walk: No and Walking Goal NOT indicated Walk 10 feet (QC): 88 Walk 50ft with 2 Turns (QC): 88 Walk 150 ft (QC): 88 Walking 10ft on Uneven Surface: 88 1 Step (curb) (QC): 88 4 Steps (QC): 88 12 Steps (QC): 88 Picking up an Object (QC): 88 Wheel 50 feet with 2 turns (QC: 4 Wheel 150 feet: 4 PT Plan Problem List Problem List: Activity Tolerance, Functional Strength, Safety, Balance, Gait, Transfer, Bed Mobility, ROM Treatment/Plan Treatment Plan: Continue Plan of Care Treatment Plan: Bed Mobility, Education, Functional Activity [place], Functional Strength, Group Therapy, Gait, Safety, Therapeutic Exercise, Transfers Treatment Duration: May 01, 2020 Frequency: At least 5 of 7 days/Wk (IRF) Estimated Hrs Per Day: 1.5 hours per day Patient and/or Family Agrees t: Yes Safety Risks/Education Patient Education: Transfer Techniques, Correct Positioning, Safety Issues Teaching Recipient: Patient Teaching Methods: Demonstration, Discussion Response to Teaching: Reinforcement Needed Time/GCodes Time In: 1315 Time Out: 1330 Total Billed Treatment Time: 15 Total Billed Treatment 1 visit EX DARRYL JORGE PT Apr 16, 2020 13:35
--- NOTE | 2020-04-16 13:52 | Speech Therapy Daily Note ---
Speech Daily Progress Note Subjective Date Seen by Provider: Apr 16, 2020 Time Seen by Provider: 00:30 Patient was resting in his recliner following his PT and OT session. Patient was alert and participated well with therapy. Objective Patient demo utilization of compensatory strategies for safe intake including food:drink alternation of 2:1 as trained at 80% with minimal cues. Patient completed a series of simple y/n at 70% with min to mod repetitions. Assessment Assessment Current Status: Fair Progress Treatment Plan Continue Plan of Care Speech Short Term Goals Short Term Goals Short Term Goals 1) The patient will complete OME for improved speech production at each session with 80% or greater accuracy. 2) The patient will complete word finding tasks with 80% or greater accuracy. 3) The patient will complete expressive language tasks 80% or greater accuracy. 4) The patient will tolerate least restrictive diet level without s/s of aspiration at 80% or greater accuracy. 5) The patient will utilize compensatory strategies as trained 80% or greater accuracy. Speech Senior Living Goals Gang Pusher Goals Patient will improve cognitive-communication abilities for completion of daily needs with minimal assist. Patient will maintain adequate nutrition/hydration via safe effective swallow function. Speech-Plan Patient/Family Goals Patient/Family Goals: Patient plans on returning to his home where he lives with his sister and brother in law. 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
--- NOTE | 2020-04-16 15:16 | NUR ---
CM/SS CONCURRENT DOCUMENTATION Partnered with [facility] to get an ultralight wheelchair as recommended by therapy team to maximize patient's performance and independence. Per discussion with therapists, will recommend scheduled family participation and education during therapy sessions to determine whether he will be returning home or need an alternate environment.
[2020-04-16 18:00] VITALS: BP 105/68
[2020-04-17 06:08] VITALS: BP 96/59
--- NOTE | 2020-04-17 07:09 | PM&R Progress Note ---
Subjective HPI/CC On Admission Date Seen by Provider: Apr 17, 2020 Time Seen by Provider: 09:30 Subjective/Events-last exam 04/16/20: Bowels not moving so will initiate Dulcolax suppository every 48hrs after laxatives given and he is agreeable for that plan Denies any significant new issues Pain is getting much better with the Gabapentin twice daily and Oxycodone 04/16/20: Right-sided pain still so increased Gabapentin to 300 Mg BID Xanax will help too Oxycodone also helps 04/15/20: Gabapentin maintained Oxycodone maintained Confusion noted? 04/14/20: Monitoring BP Pain right side still present and will increase Gabapentin 04/13/20: Right arm and right leg pain and issue Oxycodone not really helping Nerve pain so will give Gabapentin 04/12/20: Severe pain on right side Oxycodone ordered Participating in therapies well No other pain Pt doing pretty well Expressive aphasia is an issue WBC is 12.4 CMP normal Consulting cardiology Overall doing very well Conferred with RN Checked meds and labs Reviewed therapy notes Review of Systems General: Fatigue Gastrointestinal: Constipation Neurological: Weakness, Incoordination Objective Exam Vital Signs Vital Signs Date Time Temp Pulse Resp B/P (MAP) Pulse Ox O2 Delivery O2 Flow Rate FiO2 04/17/20 20:10 Room Air 04/17/20 16:00 36.6 82 16 103/60 (74) 98 Capillary Refill : Less Than 3 Seconds General Appearance: No Apparent Distress, WD/WN, Chronically ill HEENT: PERRL/EOMI, Normal ENT Inspection, Pharynx Normal Neck: Full Range of Motion, Normal Inspection, Non Tender, Supple, Carotid Bruit Respiratory: Chest Non Tender, Lungs Clear, Normal Breath Sounds, No Accessory Muscle Use, No Respiratory Distress Cardiovascular: Regular Rate, Rhythm, No Edema, No Gallop, No JVD, No Murmur, Normal Peripheral Pulses Gastrointestinal: Normal Bowel Sounds, No Organomegaly, No Pulsatile Mass, Non Tender, Soft Back: Normal Inspection, No CVA Tenderness, No Vertebral Tenderness Extremity: Normal Capillary Refill, Normal Inspection, Normal Range of Motion, Non Tender, No Calf Tenderness, No Pedal Edema Neurologic/Psychiatric: Alert, Normal Mood/Affect, Abnormal Gait, Aphasia, Depressed Affect, Disoriented, Motor Weakness (right sided flaccidity) Skin: Normal Color, Warm/Dry Lymphatic: No Adenopathy Results/Procedures Lab Patient resulted labs reviewed. FIM Transfers Therapy Code Descriptions/Definitions Functional [place] Measure: 0=Not Assessed/NA 4=Minimal Assistance 1=Total Assistance 5=Supervision or Setup 2=Maximal Assistance 6=Modified [place] 3=Moderate Assistance 7=Complete IndependenceSCALE: Activities may be completed with or without assistive devices. 4-Bvdzmpqbaj-myzbvcv completes the activity by him/herself with no assistance from a helper. 5-Set-up or Clean-up Assistance-helper sets up or cleans up; patient completes activity. [place] assists only prior to or following the activity. 4-Supervision or Touching Assistance-helper provides verbal cues and/or touching/steadying and/or contact guard assistance as patient completes activity. Assistance may be provided throughout the activity or intermittently. 3-Partial/Moderate Assistance-helper does LESS THAN HALF the effort. [place] lifts, holds or supports trunk or limbs, but provides less than half the effort. 2-Substantial/Maximal Assistance-helper does MORE THAN HALF the effort. [place] lifts or holds trunk or limbs and provides more than half the effort. 5-Uddxfphcx-fkqxbe does ALL the effort. Patient does none of the effort to complete the activity. Or, the assistance of 2 or more helpers is required for the patient to complete the activity. If activity was not attempted, code reason: 7-Patient Refused. 9-Not Applicable-not attempted and the patient did not perform the activity before the current illness, exacerbation or injury. 10-Not Attempted due to Environmental Limitations-(lack of equipment, weather restraints, etc.). 88-Not Attempted due to Medical Conditions or Safety Concerns. Roll Left to Right (QC): 3 Sit to Lying (QC): 3 Sit to Stand (QC): 3 Chair/Fkk-ip-Hzham Xfer(QC): 3 Car Transfer (QC): 2 Gait Training Distance: 20'x3 Walk 10 feet (QC): 2 Walk 50 ft with 2 Turns(QC): 88 Walk 150 ft (QC): 88 Walking 10ft/uneven surface-QC: 88 Gait Persons Needed: 2 Gait Assistive Device: Walker Jose Wheelchair Training Wheel 50 ft with 2 turns (QC): 3 Wheel 150 ft (QC): 3 Stair Training 1 Step (curb) (QC): 88 4 Steps (QC): 88 12 Steps (QC): 88 Balance Picking up an Object (QC): 88 ADL-Treatment Eating (QC): 4 (SUP during ice chip) Oral Hygiene (QC): 4 (SBA with cues for adaptive technique- pt places toothpaste under R hand, sqeezes into tub with L and scrapes up with toothbrush. Pt completes with SBA.) Bathing Location: R Arm, L Upper Leg, R Upper Leg, L Lower Leg (including foot), R Lower Leg (including foot), Chest, Abdomen, Buttocks, Perineal Area Shower/Bathe Self (QC): 3 (min A for completing bottom with thoroughness and L arm) Upper Body Dressing (QC): 3 (min A for R hand threading.) Lower Body Dressing (QC): 2 (Completes in bed. Pt able to doff with max A. Don pants in bed with OT threading BLE (increased movement of RLE this date with increased hip flexion / assist with threading). Pt able to bridge and bring over hips with L UE) On/Off Footwear (QC): 5 (s/u footwear (shoes only)) Toileting Hygiene (QC): 5 (completes bottom/ salvador area in bed with s/u. 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 Defib in place Cardiomyopathy HTN Plan: Monitor dysphagia Cardiology consultation IRF protocol 04/11/20: Monitor BP Appreciate Cardiology 04/12/20: Monitor closely Pain management 04/13/20: Gabapentin Oxycodone 04/14/20: Increase Gabapentin Oxycodone BM regimen to increase today may need supp 04/15/20: BM++ Monitor pain of right side 04/16/20: Increase dose of Neurontin Maintain aggressive rehab 04/17/20: BM regimen to include supp Q48 hrs Monitor pain Monitor BP (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
[2020-04-17] MEDS: FUROSEMIDE 20 MG (LASIX) TAB PO SCH (08:40)
[2020-04-17] MEDS: GABAPENTIN 100 MG (NEURONTIN) CAP PO SCH ×2 (08:40→20:09)
[2020-04-17] MEDS: polyethylene glycoL POWDER 17 GM (MIRALAX) PACK PO SCH ×2 (08:40→19:56)
[2020-04-17] MEDS: SENNA W/DOCUSATE (SENOKOT S) TABLET PO SCH ×2 (08:41→19:57)
[2020-04-17] MEDS: ASPIRIN 81 MG CHEW (CHILDREN'S ASA) PO SCH (08:41)
[2020-04-17] MEDS: SPIRONOLACTONE 25 MG (ALDACTONE) TAB PO SCH (08:41)
[2020-04-17] MEDS: APIXABAN 5 MG (ELIQUIS) TABLET PO SCH ×2 (08:41→20:09)
[2020-04-17] MEDS: DOCUSATE SODIUM 100 MG (COLACE) CAP PO SCH ×2 (08:41→19:56)
[2020-04-17] MEDS: BISOPROLOL 5 MG TAB (ZEBETA) PO SCH (08:42)
[2020-04-17] MEDS: LOSARTAN 50 MG (COZAAR) TAB PO SCH (08:42)
[2020-04-17] MEDS: DICLOFENAC 1% GEL 100 GM (VOLTAREN) TUBE TOP SCH ×4 (08:42→20:10)
--- NOTE | 2020-04-17 09:00 | Physical Therapy Daily Note ---
PT Daily Note-Current Subjective Pt. in bed, agreeable to Rx. OT PT co Rx as pt. requires skilled therapist for efficient Rx. Pt. c/o pain in R side , nurse present to assess and gives meds Pain Numeric Pain Scale: 7 Location: Right Location Body Site: Side Pain Description: Ache Mental Status Patient Orientation: Non-Verbal/Aphasic Transfers SCALE: Activities may be completed with or without assistive devices. 5-Awaizokzgx-aitowbr completes the activity by him/herself with no assistance from a helper. 5-Set-up or Clean-up Assistance-helper sets up or cleans up; patient completes activity. [place] assists only prior to or following the activity. 4-Supervision or Touching Assistance-helper provides verbal cues and/or touching/steadying and/or contact guard assistance as patient completes activity. Assistance may be provided throughout the activity or intermittently. 3-Partial/Moderate Assistance-helper does LESS THAN HALF the effort. [place] lifts, holds or supports trunk or limbs, but provides less than half the effort. 2-Substantial/Maximal Assistance-helper does MORE THAN HALF the effort. [place] lifts or holds trunk or limbs and provides more than half the effort. 5-Jdgopzkup-hcyoms does ALL the effort. Patient does none of the effort to complete the activity. Or, the assistance of 2 or more helpers is required for the patient to complete the activity. If activity was not attempted, code reason: 7-Patient Refused. 9-Not Applicable-not attempted and the patient did not perform the activity before the current illness, exacerbation or injury. 10-Not Attempted due to Environmental Limitations-(lack of equipment, weather restraints, etc.). 88-Not Attempted due to Medical Conditions or Safety Concerns. Roll Left & Right (QC): 4 Sit to Lying (QC): 4 Lying to Sitting/Side of Bed(Q: 3 Sit to Stand (QC): 3 Chair/Oxr-nv-Sjcci Xfer(QC): 3 TRFs bed to w/c toward left mod assist , TRFs toward right mod to max assist and 2nd production supply equipment tender assist Wheelchair Training Does the Pt Use a Wheelchair?: Yes Wheel 50 ft with 2 turns (QC): 4 Type of Wheelchair: Manual instructed in use of brakes and use of L LE and arm on wrung to propel w/c with much success, OT highlighting brakes for easier visualization. Pt. needs guided secondary to vision impairment Exercises Supine Ex: Bridging, Ankle pumps (HC stretches), Rolling, Heel Slides, Sco oting, Hip abd/add Supine Reps: 15 Seated Therapy Exercises: Long arc quads (assisted right), Hip flexion (right assited) hooklying attempts at R hip int rotation, no active mvmt, bridging with L strong and compensating Treatments rolling and dressing OT PT in bed, TRFs instructed by OT for UE use and PT for trunk and LEs , R stabilized, all mod assist, seated balance at mat with mirror feedback, OT behind pt. for trunk instruction verbal and tactile with PT in front for LE use and instruction , OT facilitating R shoulder etc, Assessment Current Status: Good Progress increased w/c mob PT Short Term Goals Short Term Goals Time Frame: Apr 18, 2020 Roll Left & Right: 3 Sit to lyin Lying to sitting on side of be: 3 Sit to stand: 3 Chair/txb-ju-iqian transfer: 3 PT Community Service Coordinator Goals Community Service Coordinator Goals PT Mcfp Goals Time Frame: May 02, 2020 Roll Left & Right (QC): 3 (Zoya) Sit to Lying (QC): 3 (Zoya) Lying-Sitting on Side/Bed(QC): 3 (Zoya) Sit to Stand (QC): 3 (Zoya) Chair/Esb-vl-Lucth Xfer(QC): 3 (Zoya) Toilet Transfer (QC): 3 (Zoya) Car Transfer (QC): 3 (Zoya) Does the Patient Walk: No and Walking Goal NOT indicated Walk 10 feet (QC): 88 Walk 50ft with 2 Turns (QC): 88 Walk 150 ft (QC): 88 Walking 10ft on Uneven Surface: 88 1 Step (curb) (QC): 88 4 Steps (QC): 88 12 Steps (QC): 88 Picking up an Object (QC): 88 Wheel 50 feet with 2 turns (QC: 4 Wheel 150 feet: 4 PT Plan Treatment/Plan Treatment Plan: Continue Plan of Care Treatment Plan: Bed Mobility, Education, Functional Activity [place], Functional Strength, Group Therapy, Gait, Safety, Therapeutic Exercise, Transfers Treatment Duration: May 01, 2020 Frequency: At least 5 of 7 days/Wk (IRF) Estimated Hrs Per Day: 1.5 hours per day Patient and/or Family Agrees t: Yes (,) Safety Risks/Education Patient Education: Transfer Techniques, Correct Positioning, W/C Management, Disease Process, Safety Issues Teaching Recipient: Patient Teaching Methods: Demonstration, Discussion Response to Teaching: Verbalize Understanding, Return Demonstration, Reinforcement Needed Time/GCodes Time In: 800 Time Out: 900 Total Billed Treatment Time: 60 Total Billed Treatment 1,EX15m,wc10m,FA35m PT OT co Rx 60 m ZAIRA GALEANA HIDE OR SKIN BUFFER Apr 17, 2020 09:00
--- NOTE | 2020-04-17 09:06 | Cardiology Progress Note ---
Subjective Date Seen by Provider: Apr 17, 2020 Time Seen by Provider: 09:01 Subjective/Events-last exam Patient with PT. No new complaints. Denies any chest pain or dyspnea. Review of Systems General: No Chills, No Night Sweats, No Fatigue, No Malaise, No Appetite, No Other HEENT: No Head Aches, No Visual Changes, No Eye Pain, No Ear Pain, No Dysphasia, No Sinus Congestion, No Post Nasal Drip, No Sore Throat, No Other Pulmonary: No Dyspnea, No Cough, No Pleuritic Chest Pain, No Other Cardiovascular: No: Chest Pain, Palpitations, Orthopnea, Paroxysmal Noc. Dyspnea, Edema, Lt Headedness, Other Objective-Cardiology Exam Last Set of Vital Signs Vital Signs 04/17/20 06:08 Temp 36.4 Pulse 78 Resp 20 B/P (MAP) 96/59 (71) Pulse Ox 97 O2 Delivery Room Air Capillary Refill : Less Than 3 Seconds I&O Intake and Output 04/17/20 00:00 Intake Total 1150 ml Balance 1150 ml Intake Oral 1150 ml # Urine Diapers 6 General: Alert, Oriented X3, Cooperative HEENT: Atraumatic, PERRLA Neck: Supple, No JVD, No Thyromegaly Lungs: Clear to Auscultation, Normal Air Movement Heart: Regular Rate, Normal S1, Normal S2, No Murmurs Abdomen: Normal Bowel Sounds, Soft, No Tenderness, No Hepatosplenomegaly, No Masses Extremities: No Edema Skin: No Rashes, No Significant Lesion Neuro: Other (right side hemiparesis) A/P-Cardiology Admission Diagnosis CVA Cardiomyopathy Atrial fibrillation Assessment/Plan Acute CVA, status post mechanical aspiration done at . Still has residual deficits, right sided weakness. Aggressive inpatient rehabilitation. Hx of previous CVA in 2009 and 2014 Cardiomyopathy, EF 10-15% per 2D Echo done at on 03/30/[address]. [address] [facility]-V ICD and AV node ablation on 04/02/[address] Witt at . Maintained on ROMULO inhibitor, beta evan. Atrial fibrillation with rapid ventricular rate, EKG shows V paced rhythm. On Eliquis. Recent AV node ablation Hypertension, currently hypotensive. I will hold BP medications and continue to monitor. Patient was seen and evaluated with [place], examination performed, management plan was discussed, agree with the current scribed note, I made few changes to the note using Italic font Continue on current medication, continue to monitor blood pressure lipids Ejection fraction 10-15 percent, continue on current medication Clinical Quality Measures DVT/VTE Risk/Contraindication: Risk Factor Score Per Nursin RFS Level Per Nursing on Admit: 4+=Very High ITALIA MORFIN Apr 17, 2020 9:06 am DEVON CHAN MD Apr 17, 2020 2:14 pm
--- NOTE | 2020-04-17 09:30 | Occupational Ther Daily Note ---
OT Current Status-Daily Note Subjective Pt alert in bed. Agrees to tx. Pt denies showering this date, desiring gym. Pt states 7/10 pain in R side of body, agrees to "ache" feeling. OT/ PT co-tx: [id number], OT addressing ADLs, w/c mob, UE placement/ strength as PT addresses fx transfers, balance, LE movement/ strength. OT individual tx: [id number] Mental Status/Objective Patient Orientation: Person, Place, Situation ADL-Treatment Therapy Code Descriptions/Definitions Functional [place] Measure: 0=Not Assessed/NA 4=Minimal Assistance 1=Total Assistance 5=Supervision or Setup 2=Maximal Assistance 6=Modified [place] 3=Moderate Assistance 7=Complete IndependenceSCALE: Activities may be completed with or without assistive devices. 9-Ujohqurbxo-jkpwzjb completes the activity by him/herself with no assistance from a helper. 5-Set-up or Clean-up Assistance-helper sets up or cleans up; patient completes activity. [place] assists only prior to or following the activity. 4-Supervision or Touching Assistance-helper provides verbal cues and/or touching/steadying and/or contact guard assistance as patient completes activity. Assistance may be provided throughout the activity or intermittently. 3-Partial/Moderate Assistance-helper does LESS THAN HALF the effort. [place] lifts, holds or supports trunk or limbs, but provides less than half the effort. 2-Substantial/Maximal Assistance-helper does MORE THAN HALF the effort. [place] lifts or holds trunk or limbs and provides more than half the effort. 2-Tlethzdju-xoqnwp does ALL the effort. Patient does none of the effort to complete the activity. Or, the assistance of 2 or more helpers is required for the patient to complete the activity. If activity was not attempted, code reason: 7-Patient Refused. 9-Not Applicable-not attempted and the patient did not perform the activity before the current illness, exacerbation or injury. 10-Not Attempted due to Environmental Limitations-(lack of equipment, weather restraints, etc.). 88-Not Attempted due to Medical Conditions or Safety Concerns. Shower/Bathe Self (QC): 7 Upper Body Dressing (QC): 3 (Cues for placement. Min A for R side donning/ adjustment in back.) Lower Body Dressing (QC): 3 (min A- OT assists in R side threading (pt able to bring leg into hip flexion for assist), pt dons over L LE and bridges to complete over hips with OT assist for R LE blocking in bridge) On/Off Footwear: 3 (s/u and min A for R shoe) Toileting Hygiene (QC): 5 (s/u in bed post-urination) Other Treatment Pt completes toilet hygiene/ brief changing in bed with assist. Supine to sit with mod A. Sits EOB, states pain. Pt requests to lay back down. Sit to supine and SPT to w/c with assist. Pt has new w/c this date, pt able to propel self with increased ease and no instances of needing to readjust pelvis in w/c this date. Pt able to propel self to gym. Pt is oriented to w/c, pt unable to complete break setting originallly. OT places bright tags on breaks for ease of finding. Pt sets/ releases breaks 3/3x successfully in session. Pt SPT with max A to EOM, completing sitting balance tasks with min A for righting at times. Pt demonstrates increased upright sitting endurance. Upon scanning room, pt's balance decreases when looking to R side, requiring max cues and max A for upright positioning. Pt sits with table in front of pt, WB through BUE with instruction to lean into arms. Pt completes this 5x for 10-20 sec each time. Pt then instructed on self range on table/ cloth with L over R hand placement. Pt able to complete forward shoulder flexion/ extension and horizontal ab/ adduction. Pt requires cues to slow down. Pt educated on back exercises and scapular mobilization exercises, pt return demonstrates with cues. Pt and OT discuss steps of safe/ fx transfers with brake setting, foot/ arm placement, positioning of w/c, etc. Pt completes 2 SPT with max A to w/c and w/c to chair with min-mod cues for safety. Pt left in recliner with all needs met, call light in reach, LE's elevated and chair alarm on. Education OT Patient Education: Correct positioning, Exercise program, Home exercise program, Modified ADL techniques, Progress toward Goal/Update tx plan, Purpose of tx/functional activities, Safety issues, Transfer techniques, W/C management Teaching Recipient: Patient Teaching Methods: Demonstration, Discussion Response to Teaching: Verbalize Understanding, Return Demonstration, Reinforcement Needed OT Short Term Goals Short Term Goals Eatin Oral hygiene: 5 Toileting hygiene: 2 Shower/bathe self: 2 Upper body dressin Lower body dressin Putting on/taking off footwear: 2 OT Snf Goals Snf Goals Time Frame: Apr 24, 2020 Eating (QC): 6 Oral Hygiene (QC): 6 Toileting Hygiene (QC): 3 Shower/Bathe Self (QC): 3 Upper Body Dressing (QC): 6 Lower Body Dressing (QC): 3 On/Off Footwear (QC): 6 Additional Goals: 1-Demonstrate ADL Tasks, 2-Verbalize Understanding, 3-ImproveStrength/[place] 1=Demonstrate adherence to instructed precautions during ADL tasks. 2=Patient will verbalize/demonstrate understanding of assistive devices/modifications for ADL. 3=Patient will improve strength/tolerance for activity to enable patient to perform ADL's. OT Education/Plan Problem List/Assessment Assessment: Decreased Activ Tolerance, Decreased Safety Aware, Decreased UE Strength, Dependent Transfers, Impaired Bed Mobility, Impaired Coordination, Impaired Funct Balance, Impaired I ADL's, Impaired Self-Care Skills, Restricted Funct UE ROM, Visual-Perceptual Deficit Discharge Recommendations Plan/Recommendations: Continue POC Therapy Discharge Recommendati: 24 Hour Supervision, Assisted Living, Post Acute OT Equpiment Recommendations-D/C: Dressing Stick Treatment Plan/Plan of Care Treatment,Training & Education: Yes Patient would benefit from OT for education, treatment and training to promote independence in ADL's, mobility, safety and/or upper extremity function for ADL's. Plan of Care: ADL Retraining, Caregiver Training, Concurrent Therapy, Functional Mobility, Group Exercise/Act as Ind, Orthotic Fitting/Training, UE Funct Exercise/Act, UE Neuromus Re-Ed/Coord, Visual/Perceptual Retrain, W/C Management Training Treatment Duration: Apr 24, 2020 Frequency: At least 5 of 7 days/Wk (IRF) Estimated Hrs Per Day: 1.5 hours per day Agreement: Yes Rehab Potential: Guarded Time/GCodes Start Time: 08:00 Stop Time: 09:15 Total Time Billed (hr/min): 75 Billed Treatment Time OT/ PT co-tx: [id number], OT addressing ADLs, w/c mob, UE placement/ strength as PT addresses fx transfers, balance, LE movement/ strength. OT individual tx: [id number] 1, ADL (15), NM 3 (45), WC (15) = 75 FATIMAH KERNS OTR Apr 17, 2020 09:30
[2020-04-17] MEDS ORDERED: CRV25T PO (10:26)
[2020-04-17] MEDS ORDERED: DILT240C86 PO (10:26)
[2020-04-17] MEDS ORDERED: AMLO-251 PO (10:26)
[2020-04-17] MEDS ORDERED: RIVA10TA PO (10:26)
[2020-04-17] MEDS ORDERED: FLEC50TA PO (10:26)
[2020-04-17] MEDS ORDERED: HYDR100T27 PO (10:26)
[2020-04-17] MEDS ORDERED: BISACODYL 10 MG SUPP (DULCOLAX) PR ONE (10:30)
--- NOTE | 2020-04-17 11:08 | Speech Therapy Daily Note ---
Speech Daily Progress Note Subjective Date Seen by Provider: Apr 17, 2020 Time Seen by Provider: 00:30 Patient was sitting up in his chair, alert and engaged well. Objective Patient completed simple trivia questions with 50% given moderate verbal cues. Assessment Assessment Current Status: Fair Progress Treatment Plan Continue Plan of Care Speech Short Term Goals Short Term Goals Short Term Goals 1) The patient will complete OME for improved speech production at each session with 80% or greater accuracy. 2) The patient will complete word finding tasks with 80% or greater accuracy. 3) The patient will complete expressive language tasks 80% or greater accuracy. 4) The patient will tolerate least restrictive diet level without s/s of aspiration at 80% or greater accuracy. 5) The patient will utilize compensatory strategies as trained 80% or greater accuracy. Speech Detention Goals Registered Associate Goals Patient will improve cognitive-communication abilities for completion of daily needs with minimal assist. Patient will maintain adequate nutrition/hydration via safe effective swallow function. Speech-Plan Patient/Family Goals Patient/Family Goals: Patient plans on returning to his home where he lives with his sister and brother in law. 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
--- NOTE | 2020-04-17 12:26 | Physical Therapy Daily Note ---
PT Daily Note-Current Subjective Pt. up in recliner, indicates he would like to go to bed. Pt. with urine soaked clothing and brief underneath. After in bed pt. rolled left and right for pants doffed and brief as well, new brief donned but had no clean pants and would not allow or keep blanket and sheep on but repeated over and over "no clothes, no clothes" but refused to allow being covered with blanket or sheet. This was communicated to nursing. Pain Location: No Pain Reported Mental Status Patient Orientation: Non-Verbal/Aphasic Transfers SCALE: Activities may be completed with or without assistive devices. 2-Ynqsaatooi-ferkymt completes the activity by him/herself with no assistance from a helper. 5-Set-up or Clean-up Assistance-helper sets up or cleans up; patient completes activity. [place] assists only prior to or following the activity. 4-Supervision or Touching Assistance-helper provides verbal cues and/or touching/steadying and/or contact guard assistance as patient completes activity. Assistance may be provided throughout the activity or intermittently. 3-Partial/Moderate Assistance-helper does LESS THAN HALF the effort. [place] lifts, holds or supports trunk or limbs, but provides less than half the effort. 2-Substantial/Maximal Assistance-helper does MORE THAN HALF the effort. [place] lifts or holds trunk or limbs and provides more than half the effort. 9-Vhaaxqcuw-sgheef does ALL the effort. Patient does none of the effort to complete the activity. Or, the assistance of 2 or more helpers is required for the patient to complete the activity. If activity was not attempted, code reason: 7-Patient Refused. 9-Not Applicable-not attempted and the patient did not perform the activity before the current illness, exacerbation or injury. 10-Not Attempted due to Environmental Limitations-(lack of equipment, weather restraints, etc.). 88-Not Attempted due to Medical Conditions or Safety Concerns. sit to stand x 3 at recliner mod assist, mod assist for stability and alignment. SPT recliner to bed mod assist, pt. required min assist LEs into bed. Exercises Supine Ex: Heel Slides, Straight leg raise Supine Reps: 10 Assessment Current Status: Fair Progress dependent for all TRFs and safe mobility PT Short Term Goals Short Term Goals Time Frame: Apr 18, 2020 Roll Left & Right: 3 Sit to lyin Lying to sitting on side of be: 3 Sit to stand: 3 Chair/fdo-ca-juufo transfer: 3 PT Nursing Home Goals Nursing Home Goals PT Firefighting Equipment Specialist Goals Time Frame: May 02, 2020 Roll Left & Right (QC): 3 (Zoya) Sit to Lying (QC): 3 (Zoya) Lying-Sitting on Side/Bed(QC): 3 (Zoya) Sit to Stand (QC): 3 (Zoya) Chair/Qhp-np-Xqitq Xfer(QC): 3 (Zoya) Toilet Transfer (QC): 3 (Zoya) Car Transfer (QC): 3 (Zoya) Does the Patient Walk: No and Walking Goal NOT indicated Walk 10 feet (QC): 88 Walk 50ft with 2 Turns (QC): 88 Walk 150 ft (QC): 88 Walking 10ft on Uneven Surface: 88 1 Step (curb) (QC): 88 4 Steps (QC): 88 12 Steps (QC): 88 Picking up an Object (QC): 88 Wheel 50 feet with 2 turns (QC: 4 Wheel 150 feet: 4 PT Plan Treatment/Plan Treatment Plan: Continue Plan of Care Treatment Plan: Bed Mobility, Education, Functional Activity [place], Functional Strength, Group Therapy, Gait, Safety, Therapeutic Exercise, Transfers Treatment Duration: May 01, 2020 Frequency: At least 5 of 7 days/Wk (IRF) Estimated Hrs Per Day: 1.5 hours per day Patient and/or Family Agrees t: Yes Safety Risks/Education Patient Education: Transfer Techniques, Correct Positioning, Disease Process, Safety Issues Teaching Recipient: Patient Teaching Methods: Demonstration, Discussion Response to Teaching: Verbalize Understanding, Return Demonstration, Reinforcement Needed Time/GCodes Time In: 1125 Time Out: 1140 Total Billed Treatment Time: 15 Total Billed Treatment 1,FA 15m ZAIRA GALEANA PROOFSHEET CORRECTOR Apr 17, 2020 12:26
--- NOTE | 2020-04-17 14:37 | NUR ---
"RD ASSESSMENT PMHx: afib; HTN; stroke; PT INTERACTION: Pt was awake and pleasant during nutrition follow-up. Pt states he has been eating very well since last assessment. Note avg PO intake 100% x4d, per chart review. Pt states no issues with nausea, vomiting, constipation, or diarrhea since last assessment. Note last BM was 04/14, per Christin MARSHALL. Note pt currently on bowel regimen of colace BID, senna BID, and miralax BID, per chart review. ABNORMAL NUTRITION-RELATED LAB VALUES LOW: HIGH: BUN 21; AST 64; ALT 93; Est. kcal needs: 3226-0121 kcal | 15-20 kcal/kg Est. Pro needs: 69-86 g Pro | 0.8-1.0 g Pro/kg PES STATEMENT: Swallowing Difficulty (NC-1.1) related to motor causes (recent stroke) as evidenced by pt interview and chart review. INTERVENTION: Continue with current diet order of DYS2 Mechanically Altered diet, with modifier of [place]-Thick Liquids. Will continue to follow and reassess as pt needs, intake, and status change. Jose Elias Rawls, MS RD LD [phone] cell"
--- NOTE | 2020-04-17 15:45 | NUR ---
Weekly Care Team Conference Discussed weekly care team conference with patient. Informed patient that family training/education has been scheduled for 04/22/2020 at 1300. Once education/training has occurred, the team will meet with the patient and family to discuss discharge plan. Patient verbalized understanding and is agreeable to this plan. Patient's functional progress and medical status will be rechecked at next Wednesday's conference on 04/24/2020.
[2020-04-17 16:00] VITALS: BP 103/60
--- NOTE | 2020-04-17 17:21 | NUR ---
CM/SS CONCURRENT DOCUMENTATION Visited with patient's sister/POA, Anabela Hollis, regarding Patient Care Conference Summary. She agreed to participate in therapy sessions April 23, at 1300 as already noted. She did share that she does not believe she and her spouse can care for patient in their home unless he recovers to a higher level of independence. The education/training will provide the opportunity for medical underwriter to meet with patient and sister to explore a confirmation of next steps. Anabela spoke with someone about patient's [employer] application, she indicated she thought it would be approved at some point. If patient is unable to return home, Anabela's preference would be an assisted living environment rather than a community nursing facility. [employer] emailed her a list of facilities in our area since she desires him to remain in or near [place]. There may be a facility who would accept patient "Medicaid Pending" and this would be the goal. Once he has an assigned Medicaid number, a TBI Waiver should be pursued as well to expedite HCBS approval/funding. This has not yet been discussed with patient until such time as Anabela is able to see him in person and assess his capabilities as well as theirs regarding a return home. Addendum: 04/17/20 at 1732 by KASANDRA SHANNON Since patient required no DME prior to this acute CVA, Anabela has no wheelchair accessible transportation. She inquired as to getting him to physician appointments and will be exploring transport resources that provide that option. They would be private pay until such time as he is likely approved for Medicaid.
[2020-04-17] MEDS: ACETAMINOPHEN 325 MG TABLET PO PRN (20:09)
--- NOTE | 2020-04-18 06:11 | PM&R Progress Note ---
Subjective HPI/CC On Admission Date Seen by Provider: Apr 18, 2020 Time Seen by Provider: 09:30 Subjective/Events-last exam 04/18/20: BM 04/17/20 Eliquis causes blurry vision per sister so will inquire with Dr Gibson regarding Xarelto Incontinent 04/17/20: Bowels not moving so will initiate Dulcolax suppository every 48hrs after laxatives given and he is agreeable for that plan Denies any significant new issues Pain is getting much better with the Gabapentin twice daily and Oxycodone 04/16/20: Right-sided pain still so increased Gabapentin to 300 Mg BID Xanax will help too Oxycodone also helps 04/15/20: Gabapentin maintained Oxycodone maintained Confusion noted? 04/14/20: Monitoring BP Pain right side still present and will increase Gabapentin 04/13/20: Right arm and right leg pain and issue Oxycodone not really helping Nerve pain so will give Gabapentin 04/12/20: Severe pain on right side Oxycodone ordered Participating in therapies well No other pain Pt doing pretty well Expressive aphasia is an issue WBC is 12.4 CMP normal Consulting cardiology Overall doing very well Conferred with RN Checked meds and labs Reviewed therapy notes Review of Systems General: Fatigue Objective Exam Vital Signs Vital Signs Date Time Temp Pulse Resp B/P (MAP) Pulse Ox O2 Delivery O2 Flow Rate FiO2 04/18/20 17:25 36.4 80 18 106/61 (76) 96 Room Air Capillary Refill : Less Than 3 Seconds General Appearance: No Apparent Distress, WD/WN, Chronically ill HEENT: PERRL/EOMI, Normal ENT Inspection, Pharynx Normal Neck: Full Range of Motion, Normal Inspection, Non Tender, Supple, Carotid Bruit Respiratory: Chest Non Tender, Lungs Clear, Normal Breath Sounds, No Accessory Muscle Use, No Respiratory Distress Cardiovascular: Regular Rate, Rhythm, No Edema, No Gallop, No JVD, No Murmur, Normal Peripheral Pulses Gastrointestinal: Normal Bowel Sounds, No Organomegaly, No Pulsatile Mass, Non Tender, Soft Back: Normal Inspection, No CVA Tenderness, No Vertebral Tenderness Extremity: Normal Capillary Refill, Normal Inspection, Normal Range of Motion, Non Tender, No Calf Tenderness, No Pedal Edema Neurologic/Psychiatric: Alert, Normal Mood/Affect, Abnormal Gait, Aphasia, Depressed Affect, Disoriented, Motor Weakness (right sided flaccidity) Skin: Normal Color, Warm/Dry Lymphatic: No Adenopathy Results/Procedures Lab Patient resulted labs reviewed. FIM Transfers Therapy Code Descriptions/Definitions Functional [place] Measure: 0=Not Assessed/NA 4=Minimal Assistance 1=Total Assistance 5=Supervision or Setup 2=Maximal Assistance 6=Modified [place] 3=Moderate Assistance 7=Complete IndependenceSCALE: Activities may be completed with or without assistive devices. 8-Xzqhiebvxu-mabovpt completes the activity by him/herself with no assistance from a helper. 5-Set-up or Clean-up Assistance-helper sets up or cleans up; patient completes activity. [place] assists only prior to or following the activity. 4-Supervision or Touching Assistance-helper provides verbal cues and/or touching/steadying and/or contact guard assistance as patient completes activity. Assistance may be provided throughout the activity or intermittently. 3-Partial/Moderate Assistance-helper does LESS THAN HALF the effort. [place] lifts, holds or supports trunk or limbs, but provides less than half the effort. 2-Substantial/Maximal Assistance-helper does MORE THAN HALF the effort. [place] lifts or holds trunk or limbs and provides more than half the effort. 2-Ldvzyzzab-aoxboe does ALL the effort. Patient does none of the effort to complete the activity. Or, the assistance of 2 or more helpers is required for the patient to complete the activity. If activity was not attempted, code reason: 7-Patient Refused. 9-Not Applicable-not attempted and the patient did not perform the activity before the current illness, exacerbation or injury. 10-Not Attempted due to Environmental Limitations-(lack of equipment, weather restraints, etc.). 88-Not Attempted due to Medical Conditions or Safety Concerns. Roll Left to Right (QC): 4 Sit to Lying (QC): 4 Sit to Stand (QC): 3 Chair/Jvo-rt-Kduhe Xfer(QC): 3 Car Transfer (QC): 2 Gait Training Distance: 20'x3 Walk 10 feet (QC): 2 Walk 50 ft with 2 Turns(QC): 88 Walk 150 ft (QC): 88 Walking 10ft/uneven surface-QC: 88 Gait Persons Needed: 2 Gait Assistive Device: Walker Jose Wheelchair Training Does the Pt Use a Wheelchair?: Yes Wheel 50 ft with 2 turns (QC): 4 Wheel 150 ft (QC): 3 Type of Wheelchair: Manual Stair Training 1 Step (curb) (QC): 88 4 Steps (QC): 88 12 Steps (QC): 88 Balance Picking up an Object (QC): 88 ADL-Treatment Eating (QC): 4 (SUP during ice chip) Oral Hygiene (QC): 4 (SBA with cues for adaptive technique- pt places toothpaste under R hand, sqeezes into tub with L and scrapes up with toothbrush. Pt completes with SBA.) Bathing Location: R Arm, L Upper Leg, R Upper Leg, L Lower Leg (including foot), R Lower Leg (including foot), Chest, Abdomen, Buttocks, Perineal Area Shower/Bathe Self (QC): 7 Upper Body Dressing (QC): 3 (Cues for placement. Min A for R side donning/ adjustment in back.) Lower Body Dressing (QC): 3 (min A- OT assists in R side threading (pt able to bring leg into hip flexion for assist), pt dons over L LE and bridges to complete over hips with OT assist for R LE blocking in bridge) On/Off Footwear (QC): 3 (s/u and min A for R shoe) Toileting Hygiene (QC): 5 (s/u in bed post-urination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 Defib in place Cardiomyopathy HTN Plan: Monitor dysphagia Cardiology consultation IRF protocol 04/11/20: Monitor BP Appreciate Cardiology 04/12/20: Monitor closely Pain management 04/13/20: Gabapentin Oxycodone 04/14/20: Increase Gabapentin Oxycodone BM regimen to increase today may need supp 04/15/20: BM++ Monitor pain of right side 04/16/20: Increase dose of Neurontin Maintain aggressive rehab 04/17/20: BM regimen to include supp Q48 hrs Monitor pain Monitor BP 04/18/20: Increased Gabpentin some more today BM regimen (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
[2020-04-18 06:22] VITALS: BP 99/67
[2020-04-18] MEDS: LOSARTAN 50 MG (COZAAR) TAB PO SCH (07:34)
[2020-04-18] MEDS: GABAPENTIN 100 MG (NEURONTIN) CAP PO SCH (07:34)
[2020-04-18] MEDS: BISOPROLOL 5 MG TAB (ZEBETA) PO SCH (07:34)
[2020-04-18] MEDS: SPIRONOLACTONE 25 MG (ALDACTONE) TAB PO SCH (07:35)
[2020-04-18] MEDS: DOCUSATE SODIUM 100 MG (COLACE) CAP PO SCH ×2 (07:35→20:54)
[2020-04-18] MEDS: polyethylene glycoL POWDER 17 GM (MIRALAX) PACK PO SCH ×2 (07:35→20:54)
[2020-04-18] MEDS: ASPIRIN 81 MG CHEW (CHILDREN'S ASA) PO SCH (07:35)
[2020-04-18] MEDS: FUROSEMIDE 20 MG (LASIX) TAB PO SCH (07:35)
[2020-04-18] MEDS: DICLOFENAC 1% GEL 100 GM (VOLTAREN) TUBE TOP SCH ×4 (07:36→20:54)
[2020-04-18] MEDS: SENNA W/DOCUSATE (SENOKOT S) TABLET PO SCH ×2 (07:36→20:54)
--- NOTE | 2020-04-18 10:19 | Occupational Ther Daily Note ---
OT Current Status-Daily Note Subjective OT/ PT co-treat this session with OT addressing UE movement, ADLs, attention/ problem solving, scanning and PT addressing fx transfers, gait pattern, balance, and mobility. Pt alert/ oriented. Pt agrees to shower this am. Pt states pain in R side of body. Mental Status/Objective Patient Orientation: Person, Place, Situation ADL-Treatment Therapy Code Descriptions/Definitions Functional [place] Measure: 0=Not Assessed/NA 4=Minimal Assistance 1=Total Assistance 5=Supervision or Setup 2=Maximal Assistance 6=Modified [place] 3=Moderate Assistance 7=Complete IndependenceSCALE: Activities may be completed with or without assistive devices. 7-Qtflqlobdz-utvzlem completes the activity by him/herself with no assistance from a helper. 5-Set-up or Clean-up Assistance-helper sets up or cleans up; patient completes activity. [place] assists only prior to or following the activity. 4-Supervision or Touching Assistance-helper provides verbal cues and/or touching/steadying and/or contact guard assistance as patient completes activity. Assistance may be provided throughout the activity or intermittently. 3-Partial/Moderate Assistance-helper does LESS THAN HALF the effort. [place] lifts, holds or supports trunk or limbs, but provides less than half the effort. 2-Substantial/Maximal Assistance-helper does MORE THAN HALF the effort. [place] lifts or holds trunk or limbs and provides more than half the effort. 1-Fuwdpcixi-kmiqsl does ALL the effort. Patient does none of the effort to complete the activity. Or, the assistance of 2 or more helpers is required for the patient to complete the activity. If activity was not attempted, code reason: 7-Patient Refused. 9-Not Applicable-not attempted and the patient did not perform the activity before the current illness, exacerbation or injury. 10-Not Attempted due to Environmental Limitations-(lack of equipment, weather restraints, etc.). 88-Not Attempted due to Medical Conditions or Safety Concerns. Shower/Bathe Self (QC): 3 (min A upon sit in sc. Pt able to reach all areas, CG A during LE washing with LHS due to balance deficit and min A for bottom thoroughness.) Upper Body Dressing (QC): 3 (IND doffingMin A donning.) Lower Body Dressing (QC): 2 (max A- OT threads BLE and pt requires assist in stance to pull up over hips. ) On/Off Footwear: 3 (Pt dons shoes with s/u and CGA, socks with A.) Toileting Hygiene (QC): 3 (min A thoroughness in sit.) Other Treatment OT/ PT co-treat this session with OT addressing UE movement, ADLs, attention/ problem solving, scanning and PT addressing fx transfers, gait pattern, balance, and mobility. Pt bed mob with mod A, sit to stand and SPT to w/c with PT assist. Pt propels to shower room, sit to stand to gb with CGA and w/c replaced with sc. Pt showers/ dresses as outlined. Pt propels self to gym with SBA, safe. Pt in parallel bars and completes 3 rounds of ambulation with PT assist with BLE and OT assist with RUE positioning and follow with w/c. More success noted with sling on RUE for balance/ gait. Pt sits EOM, completes balance/ reaching/ lateral leaning and abd omen exercises to address balance and strength for fx activities. Pt requires cues for problem solving at times. Returns to recliner SPT and all needs met, call light in reach. Chair alarm on. Later, OT assists with SPT to bed for LE dressing change with mod A. Nursing educated on pt's ability / process for LE changing in bed. Education OT Patient Education: Correct positioning, Exercise program, Home exercise program, Modified ADL techniques, Progress toward Goal/Update tx plan, Purpose of tx/functional activities, Safety issues, Transfer techniques Teaching Recipient: Patient Teaching Methods: Demonstration, Discussion Response to Teaching: Verbalize Understanding, Return Demonstration, Reinforcement Needed OT Short Term Goals Short Term Goals Eatin Oral hygiene: 5 Toileting hygiene: 2 Shower/bathe self: 2 Upper body dressin Lower body dressin Putting on/taking off footwear: 2 OT Assisted Goals Assisted Goals Time Frame: Apr 24, 2020 Eating (QC): 6 Oral Hygiene (QC): 6 Toileting Hygiene (QC): 3 Shower/Bathe Self (QC): 3 Upper Body Dressing (QC): 6 Lower Body Dressing (QC): 3 On/Off Footwear (QC): 6 Additional Goals: 1-Demonstrate ADL Tasks, 2-Verbalize Understanding, 3- ImproveStrength/[place] 1=Demonstrate adherence to instructed precautions during ADL tasks. 2=Patient will verbalize/demonstrate understanding of assistive devices/modifications for ADL. 3=Patient will improve strength/tolerance for activity to enable patient to perform ADL's. OT Education/Plan Problem List/Assessment Assessment: Decreased Activ Tolerance, Decreased UE Strength, Dependent Transfers, Impaired Bed Mobility, Impaired Cognition, Impaired Coordination, Impaired Funct Balance, Impaired I ADL's, Impaired Self-Care Skills, Restricted Funct UE ROM, Visual-Perceptual Deficit Discharge Recommendations Plan/Recommendations: Continue POC Therapy Discharge Recommendati: 24 Hour Supervision, Assisted Living, Post Acute OT Treatment Plan/Plan of Care Treatment,Training & Education: Yes Patient would benefit from OT for education, treatment and training to promote independence in ADL's, mobility, safety and/or upper extremity function for ADL's. Plan of Care: ADL Retraining, Caregiver Training, Concurrent Therapy, Functional Mobility, Group Exercise/Act as Ind, Orthotic Fitting/Training, UE Funct Exercise/Act, UE Neuromus Re-Ed/Coord, Visual/Perceptual Retrain, W/C Management Training Treatment Duration: Apr 24, 2020 Frequency: At least 5 of 7 days/Wk (IRF) Estimated Hrs Per Day: 1.5 hours per day Agreement: Yes Rehab Potential: Guarded Time/GCodes Start Time: 08:00 Stop Time: 09:00 Total Time Billed (hr/min): 60 Billed Treatment Time OT/ PT co-treat this session with OT addressing UE movement, ADLs, attention/ problem solving, scanning and PT addressing fx transfers, gait pattern, balance, and mobility. 1, ADL 2, NM 2 (60) FATIMAH KERNS OTR Apr 18, 2020 10:19
--- NOTE | 2020-04-18 12:21 | Therapy Group Daily Note ---
Therapy Daily Group Note Patient Education Topic Home Safety, Exercises Exercises LE Seated Exercise, Stretching, UE Exercise Session Ratio (pt:therapist): 4:1 Goal of Session: Home Safety Strategies, UE/LE Strengthing Education on home safety techniques; Functional strengthening for improved functional mobility Goal Met for this Session: Yes Pt Benefit of Group: Contributions to Others, Increased Functional Safety, Increased Functional Strength Social interaction with others who are hospitalized and away from family. Group activity for encouragement and optimal participation. masks worn and social distancing practiced. Other/Notes Pt spoke up when questions were asked of him. Seemed to enjoy the activity. Performed ther ex as able and responded to assist as necessary. Start Time: 11:00 Stop Time: 12:00 Total Billed Treatment Time: 60 Total Billed Treatment visit GRP 60 SRIDHAR ARNETT PT Apr 18, 2020 12:21
--- NOTE | 2020-04-18 12:21 | Physical Therapy Daily Note ---
PT Daily Note-Current Subjective Pt. in bed and agrees to therapy. States he would like a shower. Co-tx with OT due to skilled care needed with transfers and mobility. Mental Status Patient Orientation: Person Transfers SCALE: Activities may be completed with or without assistive devices. 9-Xpuezgdlyt-vfgmmux completes the activity by him/herself with no assistance from a helper. 5-Set-up or Clean-up Assistance-helper sets up or cleans up; patient completes activity. [place] assists only prior to or following the activity. 4-Supervision or Touching Assistance-helper provides verbal cues and/or touching/steadying and/or contact guard assistance as patient completes activity. Assistance may be provided throughout the activity or intermittently. 3-Partial/Moderate Assistance-helper does LESS THAN HALF the effort. Black lifts, holds or supports trunk or limbs, but provides less than half the effort. 2-Substantial/Maximal Assistance-helper does MORE THAN HALF the effort. [place] lifts or holds trunk or limbs and provides more than half the effort. 9-Nmohbgowp-innknf does ALL the effort. Patient does none of the effort to complete the activity. Or, the assistance of 2 or more helpers is required for the patient to complete the activity. If activity was not attempted, code reason: 7-Patient Refused. 9-Not Applicable-not attempted and the patient did not perform the activity before the current illness, exacerbation or injury. 10-Not Attempted due to Environmental Limitations-(lack of equipment, weather restraints, etc.). 88-Not Attempted due to Medical Conditions or Safety Concerns. Roll Left & Right (QC): 4 Lying to Sitting/Side of Bed(Q: 3 Sit to Stand (QC): 2 Chair/Kjr-ax-Aicdn Xfer(QC): 2 Weight Bearing Full Weight Bearing Full Weight Bearing Gait Training Does the Patient Walk?: Yes Distance: 3 x 8 ft Gait Persons Needed: 2 Gait Assistive Device: Parallel Bars Wheelchair Training Does the Pt Use a Wheelchair?: Yes Type of Wheelchair: Manual min A with w/c mobility and steering clear of stationary objects. Pt. utilizes L LE only. Treatments SPT to w/c and co-tx with OT for showering. Max A transfers in shower to switch to shower chair and for transfers while dressing with OT. SBA/CGA with sitting balance throughout session. Pt. ambulated in // bars x 3, PT assisting advancement of R LE, OT for UE placement and w/c follow. Worked on sitting balance on mat with weightshifting and using mirror for visual feedback. Pt. completed trunk pull ups from reclined position on montserratian ball x10. Assessment Current Status: Good Progress, Fair Progress Pt. continues to require skilled care of 2 therapists for treatment. He was able to maintain good trunk control on mat but fatigues quickly and fades to R. He remains requires blocking of R knee during gait and transfers and has impulsive behaviors with transfer training. Pt. up in bedside chair post session with call light and all needs met. PT Short Term Goals Short Term Goals Time Frame: Apr 18, 2020 Roll Left & Right: 3 Sit to lyin Lying to sitting on side of be: 3 Sit to stand: 3 Chair/gru-fq-uhnow transfer: 3 PT Internet Marketing Specialist Goals Usp Goals PT Usp Goals Time Frame: May 02, 2020 Roll Left & Right (QC): 3 (Zoya) Sit to Lying (QC): 3 (Zoya) Lying-Sitting on Side/Bed(QC): 3 (Zoya) Sit to Stand (QC): 3 (Zoya) Chair/Xxq-eo-Zeorg Xfer(QC): 3 (Zoya) Toilet Transfer (QC): 3 (Zoya) Car Transfer (QC): 3 (Zoya) Does the Patient Walk: No and Walking Goal NOT indicated Walk 10 feet (QC): 88 Walk 50ft with 2 Turns (QC): 88 Walk 150 ft (QC): 88 Walking 10ft on Uneven Surface: 88 1 Step (curb) (QC): 88 4 Steps (QC): 88 12 Steps (QC): 88 Picking up an Object (QC): 88 Wheel 50 feet with 2 turns (QC: 4 Wheel 150 feet: 4 PT Plan Treatment/Plan Treatment Plan: Continue Plan of Care Treatment Plan: Bed Mobility, Education, Functional Activity [place], Functional Strength, Group Therapy, Gait, Safety, Therapeutic Exercise, Transfers Treatment Duration: May 01, 2020 Frequency: At least 5 of 7 days/Wk (IRF) Estimated Hrs Per Day: 1.5 hours per day Patient and/or Family Agrees t: Yes Time/GCodes Time In: 800 Time Out: 900 Total Billed Treatment Time: 60 Total Billed Treatment 1, FA 60' (co-tx with OT) VAISHALI DENNISON PT Apr 18, 2020 12:21
[2020-04-18] MEDS: APIXABAN 5 MG (ELIQUIS) TABLET PO SCH ×2 (12:41→20:53)
[2020-04-18] MEDS: LACTULOSE SYRUP 10GM/15ML (ENULOSE) 30ML UDC PO PRN (12:51)
[2020-04-18 17:25] VITALS: BP 106/61
[2020-04-18] MEDS: GABAPENTIN 400 MG (NEURONTIN) CAP PO SCH (20:53)
[2020-04-18] MEDS ORDERED: GABAPENTIN 100 MG (NEURONTIN) CAP PO SCH (21:00)
[2020-04-19 05:09] VITALS: BP 115/74
[2020-04-19] MEDS: BISACODYL 10 MG SUPP (DULCOLAX) PR SCH (06:47)
--- NOTE | 2020-04-19 07:06 | PM&R Progress Note ---
Subjective HPI/CC On Admission Date Seen by Provider: Apr 19, 2020 Time Seen by Provider: 13:00 Subjective/Events-last exam : Improve right sided nerve pain Xanax and pain pill helps him BM after suppository Q 48 hours Incontinent of B/B 04/18/20: BM 04/17/20 Eliquis causes blurry vision per sister so will inquire with Dr Gibson regarding Xarelto Incontinent 04/17/20: Bowels not moving so will initiate Dulcolax suppository every 48hrs after laxatives given and he is agreeable for that plan Denies any significant new issues Pain is getting much better with the Gabapentin twice daily and Oxycodone 04/16/20: Right-sided pain still so increased Gabapentin to 300 Mg BID Xanax will help too Oxycodone also helps 04/15/20: Gabapentin maintained Oxycodone maintained Confusion noted? 04/14/20: Monitoring BP Pain right side still present and will increase Gabapentin 04/13/20: Right arm and right leg pain and issue Oxycodone not really helping Nerve pain so will give Gabapentin 04/12/20: Severe pain on right side Oxycodone ordered Participating in therapies well No other pain Pt doing pretty well Expressive aphasia is an issue WBC is 12.4 CMP normal Consulting cardiology Overall doing very well Conferred with RN Checked meds and labs Reviewed therapy notes Review of Systems General: Fatigue Genitourinary: Incontinence Musculoskeletal: arm pain, leg pain Objective Exam Vital Signs Vital Signs Date Time Temp Pulse Resp B/P (MAP) Pulse Ox O2 Delivery O2 Flow Rate FiO2 04/20/20 05:45 36.1 81 16 98/57 (71) 98 Room Air Capillary Refill : Less Than 3 Seconds General Appearance: No Apparent Distress, WD/WN, Chronically ill HEENT: PERRL/EOMI, Normal ENT Inspection, Pharynx Normal Neck: Full Range of Motion, Normal Inspection, Non Tender, Supple, Carotid Bruit Respiratory: Chest Non Tender, Lungs Clear, Normal Breath Sounds, No Accessory Muscle Use, No Respiratory Distress Cardiovascular: Regular Rate, Rhythm, No Edema, No Gallop, No JVD, No Murmur, Normal Peripheral Pulses Gastrointestinal: Normal Bowel Sounds, No Organomegaly, No Pulsatile Mass, Non Tender, Soft Back: Normal Inspection, No CVA Tenderness, No Vertebral Tenderness Extremity: Normal Capillary Refill, Normal Inspection, Normal Range of Motion, Non Tender, No Calf Tenderness, No Pedal Edema Neurologic/Psychiatric: Alert, Normal Mood/Affect, Abnormal Gait, Aphasia, De pressed Affect, Disoriented, Motor Weakness (right sided flaccidity) Skin: Normal Color, Warm/Dry Lymphatic: No Adenopathy Results/Procedures Lab Patient resulted labs reviewed. FIM Transfers Therapy Code Descriptions/Definitions Functional [place] Measure: 0=Not Assessed/NA 4=Minimal Assistance 1=Total Assistance 5=Supervision or Setup 2=Maximal Assistance 6=Modified [place] 3=Moderate Assistance 7=Complete IndependenceSCALE: Activities may be completed with or without assistive devices. 7-Epantzvdug-omgfsiu completes the activity by him/herself with no assistance from a helper. 5-Set-up or Clean-up Assistance-helper sets up or cleans up; patient completes activity. [place] assists only prior to or following the activity. 4-Supervision or Touching Assistance-helper provides verbal cues and/or t ouching/steadying and/or contact guard assistance as patient completes activity. Assistance may be provided throughout the activity or intermittently. 3-Partial/Moderate Assistance-helper does LESS THAN HALF the effort. [place] lifts, holds or supports trunk or limbs, but provides less than half the effort. 2-Substantial/Maximal Assistance-helper does MORE THAN HALF the effort. [place] lifts or holds trunk or limbs and provides more than half the effort. 6-Pbgyjocpk-ekpglt does ALL the effort. Patient does none of the effort to complete the activity. Or, the assistance of 2 or more helpers is required for the patient to complete the activity. If activity was not attempted, code reason: 7-Patient Refused. 9-Not Applicable-not attempted and the patient did not perform the activity before the current illness, exacerbation or injury. 10-Not Attempted due to Environmental Limitations-(lack of equipment, weather restraints, etc.). 88-Not Attempted due to Medical Conditions or Safety Concerns. Roll Left to Right (QC): 4 Sit to Lying (QC): 4 Sit to Stand (QC): 2 Chair/Bya-lp-Zapkb Xfer(QC): 2 Car Transfer (QC): 2 Gait Training Does the Patient Walk?: Yes Distance: 3 x 8 ft Walk 10 feet (QC): 2 Walk 50 ft with 2 Turns(QC): 88 Walk 150 ft (QC): 88 Walking 10ft/uneven surface-QC: 88 Gait Persons Needed: 2 Gait Assistive Device: Parallel Bars Wheelchair Training Does the Pt Use a Wheelchair?: Yes Wheel 50 ft with 2 turns (QC): 4 Wheel 150 ft (QC): 3 Type of Wheelchair: Manual Stair Training 1 Step (curb) (QC): 88 4 Steps (QC): 88 12 Steps (QC): 88 Balance Picking up an Object (QC): 88 ADL-Treatment Eating (QC): 4 (SUP during ice chip) Oral Hygiene (QC): 4 (SBA with cues for adaptive technique- pt places toothp aste under R hand, sqeezes into tub with L and scrapes up with toothbrush. Pt completes with SBA.) Bathing Location: R Arm, L Upper Leg, R Upper Leg, L Lower Leg (including foot), R Lower Leg (including foot), Chest, Abdomen, Buttocks, Perineal Area Shower/Bathe Self (QC): 3 (min A upon sit in sc. Pt able to reach all areas, CGA during LE washing with LHS due to balance deficit and min A for bottom thoroughness.) Upper Body Dressing (QC): 3 (IND doffingMin A donning.) Lower Body Dressing (QC): 2 (max A- OT threads BLE and pt requires assist in st ance to pull up over hips. 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 Defib in place Cardiomyopathy HTN Plan: Monitor dysphagia Cardiology consultation IRF protocol 04/11/20: Monitor BP Appreciate Cardiology 04/12/20: Monitor closely Pain management 04/13/20: Gabapentin Oxycodone 04/14/20: Increase Gabapentin Oxycodone BM regimen to increase today may need supp 04/15/20: BM++ Monitor pain of right side 04/16/20: Increase dose of Neurontin Maintain aggressive rehab 04/17/20: BM regimen to include supp Q48 hrs Monitor pain Monitor BP 04/18/20: Increased Gabpentin some more today BM regimen 04/19/20: Manage incontinence Right arm and right leg pain management (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
[2020-04-19] MEDS: SENNA W/DOCUSATE (SENOKOT S) TABLET PO SCH ×2 (08:39→20:40)
[2020-04-19] MEDS: LOSARTAN 50 MG (COZAAR) TAB PO SCH (08:39)
[2020-04-19] MEDS: ALPRAZolam 0.25 MG (XANAX) TAB PO PRN (08:39)
[2020-04-19] MEDS: SPIRONOLACTONE 25 MG (ALDACTONE) TAB PO SCH (08:39)
[2020-04-19] MEDS: ASPIRIN 81 MG CHEW (CHILDREN'S ASA) PO SCH (08:39)
[2020-04-19] MEDS: APIXABAN 5 MG (ELIQUIS) TABLET PO SCH ×2 (08:39→20:39)
[2020-04-19] MEDS: polyethylene glycoL POWDER 17 GM (MIRALAX) PACK PO SCH ×2 (08:39→20:40)
[2020-04-19] MEDS: BISOPROLOL 5 MG TAB (ZEBETA) PO SCH (08:39)
[2020-04-19] MEDS: FUROSEMIDE 20 MG (LASIX) TAB PO SCH (08:39)
[2020-04-19] MEDS: DOCUSATE SODIUM 100 MG (COLACE) CAP PO SCH ×2 (08:39→20:40)
[2020-04-19] MEDS: GABAPENTIN 400 MG (NEURONTIN) CAP PO SCH ×2 (08:39→20:39)
[2020-04-19] MEDS: DICLOFENAC 1% GEL 100 GM (VOLTAREN) TUBE TOP SCH ×4 (08:40→20:50)
--- NOTE | 2020-04-19 10:17 | Physical Therapy Daily Note ---
PT Daily Note-Current Subjective Patient in bed pre tx, agrees to PT, indicated no pain, indicated that he has had a BM in his brief. Will be co-treating with OT due to poor patient mobility, strength, endurance, right hemiparesis, poor sitting and standing balance, the need to coordinate UE and LE during activity. Appearance Patient in recliner post tx with nurse call, phone, tray, OT to continue for a while. Mental Status Patient Orientation: Person, Unable to Assess, Non-Verbal/Aphasic Transfers SCALE: Activities may be completed with or without assistive devices. 2-Fqlpiqlxdq-ngnwnvr completes the activity by him/herself with no assistance from a helper. 5-Set-up or Clean-up Assistance-helper sets up or cleans up; patient completes activity. [place] assists only prior to or following the activity. 4-Supervision or Touching Assistance-helper provides verbal cues and/or touching/steadying and/or contact guard assistance as patient completes activity. Assistance may be provided throughout the activity or intermittently. 3-Partial/Moderate Assistance-helper does LESS THAN HALF the effort. [place] lifts, holds or supports trunk or limbs, but provides less than half the effort. 2-Substantial/Maximal Assistance-helper does MORE THAN HALF the effort. [place] lifts or holds trunk or limbs and provides more than half the effort. 1-Pmqmunaoj-iunpks does ALL the effort. Patient does none of the effort to complete the activity. Or, the assistance of 2 or more helpers is required for the patient to complete the activity. If activity was not attempted, code reason: 7-Patient Refused. 9-Not Applicable-not attempted and the patient did not perform the activity before the current illness, exacerbation or injury. 10-Not Attempted due to Environmental Limitations-(lack of equipment, weather restraints, etc.). 88-Not Attempted due to Medical Conditions or Safety Concerns. Roll Left & Right (QC): 3 Sit to Lying (QC): 3 Sit to Stand (QC): 3 Chair/Uxz-tf-Pjnic Xfer(QC): 3 Toilet Transfer (QC): 3 Patient had to roll from side to side to clean BM and change padding and get a new brief on and for dressing, supine to sit with min assist, stand pivot to WC with min assist, WC propel to therapy gym 150' SBA, ambulate 20' with a hemiwalker and right side knee immobilizer with mod assist and WC follow, patient indicated that he needs to use the restroom again, WC back to room and transferred to commode, when done stand to clean and transfer to WC and then to recliner. Weight Bearing Full Weight Bearing Full Weight Bearing Treatments PT performed bed mobility and transfers, ambulation, WC mobility, standing during cleaning and dressing, OT performed cleaning, dressing, assist with ambulation, UE positioning and safety during activity. Assessment Current Status: Poor Progress Patient is preoccupied with moving his penis and kept getting BM on his hands and had to be told to stop doing that, it should have been pretty obvious from the first time. PT Short Term Goals Short Term Goals Time Frame: Apr 18, 2020 Roll Left & Right: 3 Sit to lyin Lying to sitting on side of be: 3 Sit to stand: 3 Chair/zgi-qy-ircko transfer: 3 PT Reprint Sorter Goals Reprint Sorter Goals PT Reprint Sorter Goals Time Frame: May 02, 2020 Roll Left & Right (QC): 3 (Zoya) Sit to Lying (QC): 3 (Zoya) Lying-Sitting on Side/Bed(QC): 3 (Zoya) Sit to Stand (QC): 3 (Zoya) Chair/Dsl-wv-Lbhnw Xfer(QC): 3 (Zoya) Toilet Transfer (QC): 3 (Zoya) Car Transfer (QC): 3 (Zoya) Does the Patient Walk: No and Walking Goal NOT indicated Walk 10 feet (QC): 88 Walk 50ft with 2 Turns (QC): 88 Walk 150 ft (QC): 88 Walking 10ft on Uneven Surface: 88 1 Step (curb) (QC): 88 4 Steps (QC): 88 12 Steps (QC): 88 Picking up an Object (QC): 88 Wheel 50 feet with 2 turns (QC: 4 Wheel 150 feet: 4 PT Plan Problem List Problem List: Activity Tolerance, Functional Strength, Safety, Balance, Gait, Transfer, Bed Mobility, ROM Treatment/Plan Treatment Plan: Continue Plan of Care Treatment Plan: Bed Mobility, Education, Functional Activity [place], Functional Strength, Group Therapy, Gait, Safety, Therapeutic Exercise, Transfers Treatment Duration: May 01, 2020 Frequency: At least 5 of 7 days/Wk (IRF) Estimated Hrs Per Day: 1.5 hours per day Patient and/or Family Agrees t: Yes Safety Risks/Education Patient Education: Gait Training, Transfer Techniques, Correct Positioning, W/C Management, Safety Issues Teaching Recipient: Patient Teaching Methods: Demonstration, Discussion Response to Teaching: Reinforcement Needed Time/GCodes Time In: 0800 Time Out: 0900 Total Billed Treatment Time: 60 Total Billed Treatment 1 visit FA 60' co-treat with OT for 60' DARRYL BARTLETT PT Apr 19, 2020 10:17
--- NOTE | 2020-04-19 10:20 | Occupational Ther Daily Note ---
OT Current Status-Daily Note Subjective Pt in bed upon entry. States slept okay, pt agrees to OT/ PT co-treat. OT addresses fx ADLs, fx activity tolerance, sitting balance and UE movement while PT addresses LE movement, gait/ strength, standing balance and fx transfers. OT individual tx: Pt alert/ agrees to tx. ADL-Treatment Therapy Code Descriptions/Definitions Functional [place] Measure: 0=Not Assessed/NA 4=Minimal Assistance 1=Total Assistance 5=Supervision or Setup 2=Maximal Assistance 6=Modified [place] 3=Moderate Assistance 7=Complete IndependenceSCALE: Activities may be completed with or without assistive devices. 5-Ntdvbdnpai-hxnpjmk completes the activity by him/herself with no assistance from a helper. 5-Set-up or Clean-up Assistance-helper sets up or cleans up; patient completes activity. [place] assists only prior to or following the activity. 4-Supervision or Touching Assistance-helper provides verbal cues and/or touching/steadying and/or contact guard assistance as patient completes activity. Assistance may be provided throughout the activity or intermittently. 3-Partial/Moderate Assistance-helper does LESS THAN HALF the effort. [place] lifts, holds or supports trunk or limbs, but provides less than half the effort. 2-Substantial/Maximal Assistance-helper does MORE THAN HALF the effort. [place] lifts or holds trunk or limbs and provides more than half the effort. 7-Qydjqyqsr-jcqrki does ALL the effort. Patient does none of the effort to complete the activity. Or, the assistance of 2 or more helpers is required for the patient to complete the activity. If activity was not attempted, code reason: 7-Patient Refused. 9-Not Applicable-not attempted and the patient did not perform the activity before the current illness, exacerbation or injury. 10-Not Attempted due to Environmental Limitations-(lack of equipment, weather restraints, etc.). 88-Not Attempted due to Medical Conditions or Safety Concerns. Lower Body Dressing (QC): 3 (OT threads RLE, Pt able to thread LLE. Pt bridges in bed to test puller hips. Assist in stance to pull up on R side fully. ) Toileting Hygiene (QC): 1 (Ax2) Toilet Transfer (QC): 2 Other Treatment [id number] Pt requires clean up in bed due to soiled brief (BM/ urine). Pt cleaned with max A in bed. Rolls with cues for changing LEs. Pt bed mob (supine to sit) with mod A. Sits EOB and transfers to w/c with max A. Pt propels self to gym with min cues for R side hemianopsia/ problem solving. Pt completes ambulation task with PT, OT addresses RUE and problem solving/ follows with w/c. Pt stands at parallel bars 2 sets of 5 sit to stands to reinforce safe transfers. Pt rolls eyes, agrees that he is going to the bathroom in stance. Pt is brought back to room. SPT to commode with OT addressing pants/ UE. Pt impulsive at times, requiring max cues for hygiene and impulsivity. Pt requires TD for clean-up/ stance and is brought to w/c, brief donned, pt SPT to recliner with all needs met, call light in reach. Chair alarm on and LE's elevated. Individual tx: [id number]. Pt denies brief change. Dons pants in bed with intermittent support of RLE and completes pant donning supine/ bridging with min A. Supine to sit with min A. Sit to stand/ SPT to w/c with mod A. Pt completes w/c mob with minimal cues for R side difficulty. Pt completes ~200 feet, rest, is pushed back to room. SPT to weak side and back to bed with mod A. All needs met, call light in reach. Education OT Patient Education: Correct positioning, Exercise program, Modified ADL techniques, Purpose of tx/functional activities, Safety issues, Transfer techniques Teaching Recipient: Patient Teaching Methods: Demonstration, Discussion Response to Teaching: Verbalize Understanding, Return Demonstration, Unable to Comprehend, Reinforcement Needed OT Short Term Goals Short Term Goals Eatin Oral hygiene: 5 Toileting hygiene: 2 Shower/bathe self: 2 Upper body dressin Lower body dressin Putting on/taking off footwear: 2 OT Cafe Assistant Goals Intermediate Goals Time Frame: Apr 24, 2020 Eating (QC): 6 Oral Hygiene (QC): 6 Toileting Hygiene (QC): 3 Shower/Bathe Self (QC): 3 Upper Body Dressing (QC): 6 Lower Body Dressing (QC): 3 On/Off Footwear (QC): 6 Additional Goals: 1-Demonstrate ADL Tasks, 2-Verbalize Understanding, 3- ImproveStrength/[place] 1=Demonstrate adherence to instructed precautions during ADL tasks. 2=Patient will verbalize/demonstrate understanding of assistive devices/modifications for ADL. 3=Patient will improve strength/tolerance for activity to enable patient to perform ADL's. OT Education/Plan Problem List/Assessment Assessment: Decreased Activ Tolerance, Decreased Safety Aware, Decreased UE Strength, Dependent Transfers, Impaired Bed Mobility, Impaired Coordination, Impaired Funct Balance, Impaired I ADL's, Impaired Self-Care Skills, Restricted Funct UE ROM, Visual-Perceptual Deficit Discharge Recommendations Plan/Recommendations: Continue POC Therapy Discharge Recommendati: 24 Hour Supervision, Assisted Living, Post Acute OT Treatment Plan/Plan of Care Treatment,Training & Education: Yes Patient would benefit from OT for education, treatment and training to promote independence in ADL's, mobility, safety and/or upper extremity function for ADL's. Plan of Care: ADL Retraining, Caregiver Training, Concurrent Therapy, Functional Mobility, Group Exercise/Act as Ind, Orthotic Fitting/Training, UE Funct Exercise/Act, UE Neuromus Re-Ed/Coord, Visual/Perceptual Retrain, W/C Management Training Treatment Duration: Apr 24, 2020 Frequency: At least 5 of 7 days/Wk (IRF) Estimated Hrs Per Day: 1.5 hours per day Agreement: Yes Rehab Potential: Guarded Time/GCodes Start Time: 08:00 (1300) Stop Time: 09:00 (1315) Total Time Billed (hr/min): 75 Billed Treatment Time OT addresses fx ADLs, fx activity tolerance, sitting balance and UE movement while PT addresses LE movement, gait/ strength, standing balance and fx transfers. [id number]: 1, ADL 2, NM 2 (60) 1, FA (15) FATIMAH KERNS OTR Apr 19, 2020 10:20
--- NOTE | 2020-04-19 12:01 | Physical Therapy Daily Note ---
PT Daily Note-Current Subjective Patient in recliner pre tx, agrees to PT, has no complaints of pain. Appearance Patient in recliner post tx with nurse call, phone, tray, all needs met. Mental Status Patient Orientation: Person, Unable to Assess, Non-Verbal/Aphasic Transfers SCALE: Activities may be completed with or without assistive devices. 4-Iqfyjwfeyu-uwumuer completes the activity by him/herself with no assistance from a helper. 5-Set-up or Clean-up Assistance-helper sets up or cleans up; patient completes activity. [place] assists only prior to or following the activity. 4-Supervision or Touching Assistance-helper provides verbal cues and/or touching/steadying and/or contact guard assistance as patient completes activity. Assistance may be provided throughout the activity or intermittently. 3-Partial/Moderate Assistance-helper does LESS THAN HALF the effort. [place] lift s, holds or supports trunk or limbs, but provides less than half the effort. 2-Substantial/Maximal Assistance-helper does MORE THAN HALF the effort. [place] lifts or holds trunk or limbs and provides more than half the effort. 7-Knodqbwvz-ohmfji does ALL the effort. Patient does none of the effort to complete the activity. Or, the assistance of 2 or more helpers is required for the patient to complete the activity. If activity was not attempted, code reason: 7-Patient Refused. 9-Not Applicable-not attempted and the patient did not perform the activity before the current illness, exacerbation or injury. 10-Not Attempted due to Environmental Limitations-(lack of equipment, weather restraints, etc.). 88-Not Attempted due to Medical Conditions or Safety Concerns. Weight Bearing Full Weight Bearing Full Weight Bearing Exercises Supine Ex: Short Arc Quads, Straight leg raise, Hip abd/add Supine Reps: 20 (AAROM, patient can assist with LAQ slightly, done in the recliner with legs elevated) RLE PROM in all planes (patient thanks therapist for doing this, it seems patient's leg must be getting uncomfortable lying still and he likes the movement) Assessment Current Status: Poor Progress no changes in functional mobility PT Short Term Goals Short Term Goals Time Frame: Apr 18, 2020 Roll Left & Right: 3 Sit to lyin Lying to sitting on side of be: 3 Sit to stand: 3 Chair/aqs-pk-jtbuw transfer: 3 PT Nursing Home Goals Nursing Home Goals PT Wire Bender Goals Time Frame: May 02, 2020 Roll Left & Right (QC): 3 (Zoya) Sit to Lying (QC): 3 (Zoya) Lying-Sitting on Side/Bed(QC): 3 (Zoya) Sit to Stand (QC): 3 (Zoya) Chair/Qwv-ru-Ewmzz Xfer(QC): 3 (Zoya) Toilet Transfer (QC): 3 (Zoya) Car Transfer (QC): 3 (Zoya) Does the Patient Walk: No and Walking Goal NOT indicated Walk 10 feet (QC): 88 Walk 50ft with 2 Turns (QC): 88 Walk 150 ft (QC): 88 Walking 10ft on Uneven Surface: 88 1 Step (curb) (QC): 88 4 Steps (QC): 88 12 Steps (QC): 88 Picking up an Object (QC): 88 Wheel 50 feet with 2 turns (QC: 4 Wheel 150 feet: 4 PT Plan Problem List Problem List: Activity Tolerance, Functional Strength, Safety, Balance, Gait, Transfer, Bed Mobility, ROM Treatment/Plan Treatment Plan: Continue Plan of Care Treatment Plan: Bed Mobility, Education, Functional Activity [place], Functional Strength, Group Therapy, Gait, Safety, Therapeutic Exercise, Transfers Treatment Duration: May 01, 2020 Frequency: At least 5 of 7 days/Wk (IRF) Estimated Hrs Per Day: 1.5 hours per day Patient and/or Family Agrees t: Yes Safety Risks/Education Patient Education: Correct Positioning, Safety Issues Teaching Recipient: Patient Teaching Methods: Demonstration, Discussion Response to Teaching: Reinforcement Needed Time/GCodes Time In: 1145 Time Out: 1200 Total Billed Treatment Time: 15 Total Billed Treatment 1 visit EX DARRYL JORGE PT Apr 19, 2020 12:00
--- NOTE | 2020-04-19 13:30 | Speech Therapy Daily Note ---
Speech Daily Progress Note Subjective Date Seen by Provider: Apr 19, 2020 Time Seen by Provider: 00:30 Patient was resting in his recliner following his other therapies. Patient stated he was tired. Objective Patient completed simple fill in the blank sentences presented verbally with 60% given maximum cues/repetitions. Assessment Assessment Current Status: Fair Progress Treatment Plan Continue Plan of Care Speech Short Term Goals Short Term Goals Short Term Goals 1) The patient will complete OME for improved speech production at each session with 80% or greater accuracy. 2) The patient will complete word finding tasks with 80% or greater accuracy. 3) The patient will complete expressive language tasks 80% or greater accuracy. 4) The patient will tolerate least restrictive diet level without s/s of aspiration at 80% or greater accuracy. 5) The patient will utilize compensatory strategies as trained 80% or greater accuracy. Speech Retirement Goals Disability Examiner Goals Patient will improve cognitive-communication abilities for completion of daily n eeds with minimal assist. Patient will maintain adequate nutrition/hydration via safe effective swallow function. Speech-Plan Patient/Family Goals Patient/Family Goals: Patient plans on returning to live with his sister and brother in law. Treatment Plan Speech Therapy Treatment Plan: Continue Plan of Care Treatment Duration: Apr 26, 2020 Frequency: 4 times per week (Patient will receive skilled ST 4-5x per week) Estimated Hrs Per Day: .5 hour per day Rehab Potential: Guarded Barriers to Learning: Patient's recent CVA, his third Safety of oral intake Pt/Family Agrees to Plan: Yes Safety Risks/Education Teaching Recipient: Patient Teaching Methods: Demonstration, Discussion Response to Teaching: Verbalize Understanding, Return Demonstration Education Topics Provided: Safety within his room, using the call light Time Speech Therapy Time In: 10:00 Speech Therapy Time Out: 10:30 Total Billed Time: 30 Billed Treatment Time 1, SLDECLAN, FIDEL Najera Apr 19, 2020 13:30
[2020-04-19 16:07] VITALS: BP 98/62
--- NOTE | 2020-04-19 19:13 | NUR ---
Bedside report received from Emmie escalera, assume care of pt
--- NOTE | 2020-04-19 19:33 | NUR ---
C/O pain to rt arm & leg level 6/10 on numeric scale, Oxyir 5mg given with pudding
--- NOTE | 2020-04-19 20:25 | NUR ---
RATES PAIN 5/10 ON NUMERIC SCALE
--- NOTE | 2020-04-19 20:50 | NUR ---
REFUSED COLACE, MIRALAX & SENOKOT, repositioned & brief changed after cleaning
[2020-04-20 05:45] VITALS: BP 98/57
[2020-04-20] MEDS: GABAPENTIN 400 MG (NEURONTIN) CAP PO SCH ×2 (07:37→21:06)
[2020-04-20] MEDS: APIXABAN 5 MG (ELIQUIS) TABLET PO SCH ×2 (07:37→21:06)
[2020-04-20] MEDS: SENNA W/DOCUSATE (SENOKOT S) TABLET PO SCH ×2 (07:37→21:14)
[2020-04-20] MEDS: LOSARTAN 50 MG (COZAAR) TAB PO SCH ×2 (07:37→07:42)
[2020-04-20] MEDS: ASPIRIN 81 MG CHEW (CHILDREN'S ASA) PO SCH (07:38)
[2020-04-20] MEDS: FUROSEMIDE 20 MG (LASIX) TAB PO SCH (07:38)
[2020-04-20] MEDS: DOCUSATE SODIUM 100 MG (COLACE) CAP PO SCH ×2 (07:38→21:13)
[2020-04-20] MEDS: SPIRONOLACTONE 25 MG (ALDACTONE) TAB PO SCH (07:38)
[2020-04-20] MEDS: BISOPROLOL 5 MG TAB (ZEBETA) PO SCH (07:38)
[2020-04-20] MEDS: polyethylene glycoL POWDER 17 GM (MIRALAX) PACK PO SCH ×2 (07:40→21:13)
[2020-04-20] MEDS: DICLOFENAC 1% GEL 100 GM (VOLTAREN) TUBE TOP SCH ×4 (07:41→21:14)
[2020-04-20 07:42] VITALS: BP 99/58
--- NOTE | 2020-04-20 10:49 | Physical Therapy Daily Note ---
PT Daily Note-Current Subjective Pt is in bed. Pt states that he is ok with therapy at this time. Transfers SCALE: Activities may be completed with or without assistive devices. 1-Pqgvyxwyup-ylymhqi completes the activity by him/herself with no assistance from a helper. 5-Set-up or Clean-up Assistance-helper sets up or cleans up; patient completes activity. [place] assists only prior to or following the activity. 4-Supervision or Touching Assistance-helper provides verbal cues and/or touching/steadying and/or contact guard assistance as patient completes activi ty. Assistance may be provided throughout the activity or intermittently. 3-Partial/Moderate Assistance-helper does LESS THAN HALF the effort. [place] lifts, holds or supports trunk or limbs, but provides less than half the effort. 2-Substantial/Maximal Assistance-helper does MORE THAN HALF the effort. [place] lifts or holds trunk or limbs and provides more than half the effort. 7-Asnhomygk-eyigmi does ALL the effort. Patient does none of the effort to complete the activity. Or, the assistance of 2 or more helpers is required for the patient to complete the activity. If activity was not attempted, code reason: 7-Patient Refused. 9-Not Applicable-not attempted and the patient did not perform the activity before the current illness, exacerbation or injury. 10-Not Attempted due to Environmental Limitations-(lack of equipment, weather restraints, etc.). 88-Not Attempted due to Medical Conditions or Safety Concerns. Roll Left & Right (QC): 2 Sit to Lying (QC): 2 Lying to Sitting/Side of Bed(Q: 2 Sit to Stand (QC): 2 Chair/Muk-mp-Jrnde Xfer(QC): 2 Weight Bearing Full Weight Bearing Full Weight Bearing Exercises Supine Ex: LE Protocol Supine Reps: 15 Seated Therapy Exercises: LE Protocol Seated Reps: 15 (R) LE requires 100% assist for all exercises. Assessment Current Status: Fair Progress Assisted nursing with garment change and then transferred pt to the chair. Pt was able to fontana wt on the (R) during the transfer which required max assist. PT Short Term Goals Short Term Goals Time Frame: Apr 18, 2020 Roll Left & Right: 3 Sit to lyin Lying to sitting on side of be: 3 Sit to stand: 3 Chair/izy-iq-udmgd transfer: 3 PT Residential Goals Residential Goals PT Box Nailer Goals Time Frame: May 02, 2020 Roll Left & Right (QC): 3 (Zoya) Sit to Lying (QC): 3 (Zoya) Lying-Sitting on Side/Bed(QC): 3 (Zoya) Sit to Stand (QC): 3 (Zoya) Chair/Zus-me-Cuaxm Xfer(QC): 3 (Zoya) Toilet Transfer (QC): 3 (Zoya) Car Transfer (QC): 3 (Zoya) Does the Patient Walk: No and Walking Goal NOT indicated Walk 10 feet (QC): 88 Walk 50ft with 2 Turns (QC): 88 Walk 150 ft (QC): 88 Walking 10ft on Uneven Surface: 88 1 Step (curb) (QC): 88 4 Steps (QC): 88 12 Steps (QC): 88 Picking up an Object (QC): 88 Wheel 50 feet with 2 turns (QC: 4 Wheel 150 feet: 4 PT Plan Treatment/Plan Treatment Plan: Continue Plan of Care Treatment Plan: Bed Mobility, Education, Functional Activity [place], Functional Strength, Group Therapy, Gait, Safety, Therapeutic Exercise, Transfers Treatment Duration: May 01, 2020 Frequency: At least 5 of 7 days/Wk (IRF) Estimated Hrs Per Day: 1.5 hours per day Patient and/or Family Agrees t: Yes Time/GCodes Time In: 911 Time Out: 934 Total Billed Treatment Time: 23 Total Billed Treatment 1, ex (15), fa (8) JAYCEE MCGUIRE PT Apr 20, 2020 10:49
--- NOTE | 2020-04-20 13:58 | PM&R Progress Note ---
Subjective HPI/CC On Admission Date Seen by Provider: Apr 20, 2020 Time Seen by Provider: 14:00 Subjective/Events-last exam 04/20/20: BM yesterday Pain improved Sleepy today Doing better Incontinence : Improve right sided nerve pain Xanax and pain pill helps him BM after suppository Q 48 hours Incontinent of B/B 04/18/20: BM 04/17/20 Eliquis causes blurry vision per sister so will inquire with Dr Gibson regarding Xarelto Incontinent 04/17/20: Bowels not moving so will initiate Dulcolax suppository every 48hrs after laxatives given and he is agreeable for that plan Denies any significant new issues Pain is getting much better with the Gabapentin twice daily and Oxycodone 04/16/20: Right-sided pain still so increased Gabapentin to 300 Mg BID Xanax will help too Oxycodone also helps 04/15/20: Gabapentin maintained Oxycodone maintained Confusion noted? 04/14/20: Monitoring BP Pain right side still present and will increase Gabapentin 04/13/20: Right arm and right leg pain and issue Oxycodone not really helping Nerve pain so will give Gabapentin 04/12/20: Severe pain on right side Oxycodone ordered Participating in therapies well No other pain Pt doing pretty well Expressive aphasia is an issue WBC is 12.4 CMP normal Consulting cardiology Overall doing very well Conferred with RN Checked meds and labs Reviewed therapy notes Review of Systems Genitourinary: Incontinence Musculoskeletal: arm pain, leg pain Objective Exam Vital Signs Vital Signs Date Time Temp Pulse Resp B/P (MAP) Pulse Ox O2 Delivery O2 Flow Rate FiO2 04/20/20 09:22 Room Air 04/20/20 07:42 99/58 (72) 04/20/20 05:45 36.1 81 16 98 Capillary Refill : Less Than 3 Seconds General Appearance: No Apparent Distress, WD/WN, Chronically ill HEENT: PERRL/EOMI, Normal ENT Inspection, Pharynx Normal Neck: Full Range of Motion, Normal Inspection, Non Tender, Supple, Carotid Bruit Respiratory: Chest Non Tender, Lungs Clear, Normal Breath Sounds, No Accessory Muscle Use, No Respiratory Distress Cardiovascular: Regular Rate, Rhythm, No Edema, No Gallop, No JVD, No Murmur, Normal Peripheral Pulses Gastrointestinal: Normal Bowel Sounds, No Organomegaly, No Pulsatile Mass, Non Tender, Soft Back: Normal Inspection, No CVA Tenderness, No Vertebral Tenderness Extremity: Normal Capillary Refill, Normal Inspection, Normal Range of Motion, Non Tender, No Calf Tenderness, No Pedal Edema Neurologic/Psychiatric: Alert, Normal Mood/Affect, Abnormal Gait, Aphasia, Depressed Affect, Disoriented, Motor Weakness (right sided flaccidity) Skin: Normal Color, Warm/Dry Lymphatic: No Adenopathy Results/Procedures Lab Patient resulted labs reviewed. FIM Transfers Therapy Code Descriptions/Definitions Functional [place] Measure: 0=Not Assessed/NA 4=Minimal Assistance 1=Total Assistance 5=Supervision or Setup 2=Maximal Assistance 6=Modified [place] 3=Moderate Assistance 7=Complete IndependenceSCALE: Activities may be completed with or without assistive devices. 8-Ngwmvsxbcl-dulxmyn completes the activity by him/herself with no assistance from a helper. 5-Set-up or Clean-up Assistance-helper sets up or cleans up; patient completes activity. [place] assists only prior to or following the activity. 4-Supervision or Touching Assistance-helper provides verbal cues and/or touching/steadying and/or contact guard assistance as patient completes activity. Assistance may be provided throughout the activity or intermittently. 3-Partial/Moderate Assistance-helper does LESS THAN HALF the effort. [place] lifts, holds or supports trunk or limbs, but provides less than half the effort. 2-Substantial/Maximal Assistance-helper does MORE THAN HALF the effort. [place] lifts or holds trunk or limbs and provides more than half the effort. 4-Vdebcedbx-xstxqd does ALL the effort. Patient does none of the effort to complete the activity. Or, the assistance of 2 or more helpers is required for the patient to complete the activity. If activity was not attempted, code reason: 7-Patient Refused. 9-Not Applicable-not attempted and the patient did not perform the activity before the current illness, exacerbation or injury. 10-Not Attempted due to Environmental Limitations-(lack of equipment, weather restraints, etc.). 88-Not Attempted due to Medical Conditions or Safety Concerns. Roll Left to Right (QC): 2 Sit to Lying (QC): 2 Sit to Stand (QC): 2 Chair/Bed-zz-Aleey Xfer(QC): 2 Car Transfer (QC): 2 Gait Training Does the Patient Walk?: Yes Distance: 3 x 8 ft Walk 10 feet (QC): 2 Walk 50 ft with 2 Turns(QC): 88 Walk 150 ft (QC): 88 Walking 10ft/uneven surface-QC: 88 Gait Persons Needed: 2 Gait Assistive Device: Parallel Bars Wheelchair Training Does the Pt Use a Wheelchair?: Yes Wheel 50 ft with 2 turns (QC): 4 Wheel 150 ft (QC): 3 Type of Wheelchair: Manual Stair Training 1 Step (curb) (QC): 88 4 Steps (QC): 88 12 Steps (QC): 88 Balance Picking up an Object (QC): 88 ADL-Treatment Eating (QC): 4 (SUP during ice chip) Oral Hygiene (QC): 4 (SBA with cues for adaptive technique- pt places toothpaste under R hand, sqeezes into tub with L and scrapes up with toothbrush. Pt completes with SBA.) Bathing Location: R Arm, L Upper Leg, R Upper Leg, L Lower Leg (including foot), R Lower Leg (including foot), Chest, Abdomen, Buttocks, Perineal Area Shower/Bathe Self (QC): 3 (min A upon sit in sc. Pt able to reach all areas, CGA during LE washing with LHS due to balance deficit and min A for bottom thoroughness.) Upper Body Dressing (QC): 3 (IND doffingMin A donning.) Lower Body Dressing (QC): 3 (OT threads RLE, Pt able to thread LLE. Pt bridges in bed to gut puller hips. Assist in stance to pull up on R side fully. 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 Defib in place Cardiomyopathy HTN Plan: Monitor dysphagia Cardiology consultation IRF protocol 04/11/20: Monitor BP Appreciate Cardiology 04/12/20: Monitor closely Pain management 04/13/20: Gabapentin Oxycodone 04/14/20: Increase Gabapentin Oxycodone BM regimen to increase today may need supp 04/15/20: BM++ Monitor pain of right side 04/16/20: Increase dose of Neurontin Maintain aggressive rehab 04/17/20: BM regimen to include supp Q48 hrs Monitor pain Monitor BP 04/18/20: Increased Gabpentin some more today BM regimen 04/19/20: Manage incontinence Right arm and right leg pain management 04/20/20: Maintain pain control Incontinence management BM regimen (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
[2020-04-20 16:46] VITALS: BP 101/67
--- NOTE | 2020-04-20 19:11 | NUR ---
Bedside report received from SANIYA MARSHALL, assume care of pt
--- NOTE | 2020-04-20 21:06 | NUR ---
Pt refused Colace, [place] & miralax, c/o lt arm & leg pain, level 7/10 on numeric scale, Oxyir 5mg given crushed in pudding, Voltaren gel applied to arm & leg
--- NOTE | 2020-04-20 21:45 | NUR ---
Resting quietly in bed, pain level0/10 on CNPI SCALE
--- NOTE | 2020-04-21 01:34 | NUR ---
c/0 pain to arm & leg level 6/10 on numeric scale, Oxyir 5mg crushed in pudding given
--- NOTE | 2020-04-21 02:15 | NUR ---
resting quietly in bed, pain level 0/10 on CNPI scale
[2020-04-21 05:26] VITALS: BP 101/66
--- NOTE | 2020-04-21 07:31 | PM&R Progress Note ---
Subjective HPI/CC On Admission Date Seen by Provider: Apr 21, 2020 Time Seen by Provider: 12:30 Subjective/Events-last exam 04/21/20: Suppository today and BM Incontinent of B/B Pain improved Does not need to increase Gabapentin 04/20/20: BM yesterday Pain improved Sleepy today Doing better Incontinence : Improve right sided nerve pain Xanax and pain pill helps him BM after suppository Q 48 hours Incontinent of B/B 04/18/20: BM 04/17/20 Eliquis causes blurry vision per sister so will inquire with Dr Gibson regarding Xarelto Incontinent 04/17/20: Bowels not moving so will initiate Dulcolax suppository every 48hrs after laxatives given and he is agreeable for that plan Denies any significant new issues Pain is getting much better with the Gabapentin twice daily and Oxycodone 04/16/20: Right-sided pain still so increased Gabapentin to 300 Mg BID Xanax will help too Oxycodone also helps 04/15/20: Gabapentin maintained Oxycodone maintained Confusion noted? 04/14/20: Monitoring BP Pain right side still present and will increase Gabapentin 04/13/20: Right arm and right leg pain and issue Oxycodone not really helping Nerve pain so will give Gabapentin 04/12/20: Severe pain on right side Oxycodone ordered Participating in therapies well No other pain Pt doing pretty well Expressive aphasia is an issue WBC is 12.4 CMP normal Consulting cardiology Overall doing very well Conferred with RN Checked meds and labs Reviewed therapy notes Review of Systems General: Fatigue Genitourinary: Incontinence Musculoskeletal: arm pain, leg pain Neurological: Weakness, Incoordination Objective Exam Vital Signs Vital Signs Date Time Temp Pulse Resp B/P (MAP) Pulse Ox O2 Delivery O2 Flow Rate FiO2 04/21/20 09:00 Room Air 04/21/20 05:26 36.0 81 18 101/66 (78) 99 Capillary Refill : Less Than 3 Seconds General Appearance: No Apparent Distress, WD/WN, Chronically ill HEENT: PERRL/EOMI, Normal ENT Inspection, Pharynx Normal Neck: Full Range of Motion, Normal Inspection, Non Tender, Supple, Carotid Bruit Respiratory: Chest Non Tender, Lungs Clear, Normal Breath Sounds, No Accessory Muscle Use, No Respiratory Distress Cardiovascular: Regular Rate, Rhythm, No Edema, No Gallop, No JVD, No Murmur, Normal Peripheral Pulses Gastrointestinal: Normal Bowel Sounds, No Organomegaly, No Pulsatile Mass, Non Tender, Soft Back: Normal Inspection, No CVA Tenderness, No Vertebral Tenderness Extremity: Normal Capillary Refill, Normal Inspection, Normal Range of Motion, Non Tender, No Calf Tenderness, No Pedal Edema Neurologic/Psychiatric: Alert, Normal Mood/Affect, Abnormal Gait, Aphasia, Depressed Affect, Disoriented, Motor Weakness (right sided flaccidity) Skin: Normal Color, Warm/Dry Lymphatic: No Adenopathy Results/Procedures Lab Patient resulted labs reviewed. FIM Transfers Therapy Code Descriptions/Definitions Functional [place] Measure: 0=Not Assessed/NA 4=Minimal Assistance 1=Total Assistance 5=Supervision or Setup 2=Maximal Assistance 6=Modified [place] 3=Moderate Assistance 7=Complete IndependenceSCALE: Activities may be completed with or without assistive devices. 6-Npobvphuig-dlciagu completes the activity by him/herself with no assistance from a helper. 5-Set-up or Clean-up Assistance-helper sets up or cleans up; patient completes a ctivity. [place] assists only prior to or following the activity. 4-Supervision or Touching Assistance-helper provides verbal cues and/or touching/steadying and/or contact guard assistance as patient completes activity. Assistance may be provided throughout the activity or intermittently. 3-Partial/Moderate Assistance-helper does LESS THAN HALF the effort. [place] lifts, holds or supports trunk or limbs, but provides less than half the effort. 2-Substantial/Maximal Assistance-helper does MORE THAN HALF the effort. [place] lifts or holds trunk or limbs and provides more than half the effort. 9-Buhhqrvdr-ydotxe does ALL the effort. Patient does none of the effort to complete the activity. Or, the assistance of 2 or more helpers is required for the patient to complete the activity. If activity was not attempted, code reason: 7-Patient Refused. 9-Not Applicable-not attempted and the patient did not perform the activity before the current illness, exacerbation or injury. 10-Not Attempted due to Environmental Limitations-(lack of equipment, weather restraints, etc.). 88-Not Attempted due to Medical Conditions or Safety Concerns. Roll Left to Right (QC): 2 Sit to Lying (QC): 2 Sit to Stand (QC): 2 Chair/Vsd-mg-Sfmtq Xfer(QC): 2 Car Transfer (QC): 2 Gait Training Does the Patient Walk?: Yes Distance: 3 x 8 ft Walk 10 feet (QC): 2 Walk 50 ft with 2 Turns(QC): 88 Walk 150 ft (QC): 88 Walking 10ft/uneven surface-QC: 88 Gait Persons Needed: 2 Gait Assistive Device: Parallel Bars Wheelchair Training Does the Pt Use a Wheelchair?: Yes Wheel 50 ft with 2 turns (QC): 4 Wheel 150 ft (QC): 3 Type of Wheelchair: Manual Stair Training 1 Step (curb) (QC): 88 4 Steps (QC): 88 12 Steps (QC): 88 Balance Picking up an Object (QC): 88 ADL-Treatment Eating (QC): 4 (SUP during ice chip) Oral Hygiene (QC): 4 (SBA with cues for adaptive technique- pt places toothpaste under R hand, sqeezes into tub with L and scrapes up with toothbrush. Pt completes with SBA.) Bathing Location: R Arm, L Upper Leg, R Upper Leg, L Lower Leg (including foot), R Lower Leg (including foot), Chest, Abdomen, Buttocks, Perineal Area Shower/Bathe Self (QC): 3 (min A upon sit in sc. Pt able to reach all areas, CGA during LE washing with LHS due to balance deficit and min A for bottom thoroughness.) Upper Body Dressing (QC): 3 (IND doffingMin A donning.) Lower Body Dressing (QC): 3 (OT threads RLE, Pt able to thread LLE. Pt bridges in bed to veneer puller hips. Assist in stance to pull up on R side fully. 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 Defib in place Cardiomyopathy HTN Plan: Monitor dysphagia Cardiology consultation IRF protocol 04/11/20: Monitor BP Appreciate Cardiology 04/12/20: Monitor closely Pain management 04/13/20: Gabapentin Oxycodone 04/14/20: Increase Gabapentin Oxycodone BM regimen to increase today may need supp 04/15/20: BM++ Monitor pain of right side 04/16/20: Increase dose of Neurontin Maintain aggressive rehab 04/17/20: BM regimen to include supp Q48 hrs Monitor pain Monitor BP 04/18/20: Increased Gabpentin some more today BM regimen 04/19/20: Manage incontinence Right arm and right leg pain management 04/20/20: Maintain pain control Incontinence management BM regimen 04/21/20: Suppository [id number] Monitor closely Pain control (1) Flaccid hemiplegia affecting right dominant side (2) Expressive aphasia (3) Cardiomyopathy (4) Cardiac defibrillator in place (5) CVA (cerebral vascular accident) Status: Acute (6) Atrial fibrillation with rapid ventricular response Status: Acute (7) Tachyarrhythmia Status: Acute ABDIAZIZ ANTONIO DO Apr 21, 2020 07:31
[2020-04-21] MEDS: DOCUSATE SODIUM 100 MG (COLACE) CAP PO SCH ×2 (07:44→21:28)
[2020-04-21] MEDS: BISOPROLOL 5 MG TAB (ZEBETA) PO SCH (07:44)
[2020-04-21] MEDS: LOSARTAN 50 MG (COZAAR) TAB PO SCH (07:44)
[2020-04-21] MEDS: GABAPENTIN 400 MG (NEURONTIN) CAP PO SCH ×2 (07:44→21:19)
[2020-04-21] MEDS: SENNA W/DOCUSATE (SENOKOT S) TABLET PO SCH ×2 (07:44→21:28)
[2020-04-21] MEDS: APIXABAN 5 MG (ELIQUIS) TABLET PO SCH ×2 (07:45→21:19)
[2020-04-21] MEDS: DICLOFENAC 1% GEL 100 GM (VOLTAREN) TUBE TOP SCH ×4 (07:45→21:29)
[2020-04-21] MEDS: FUROSEMIDE 20 MG (LASIX) TAB PO SCH (07:45)
[2020-04-21] MEDS: polyethylene glycoL POWDER 17 GM (MIRALAX) PACK PO SCH ×2 (07:45→21:28)
[2020-04-21] MEDS: ASPIRIN 81 MG CHEW (CHILDREN'S ASA) PO SCH (07:45)
[2020-04-21] MEDS: SPIRONOLACTONE 25 MG (ALDACTONE) TAB PO SCH (07:45)
[2020-04-21] MEDS: BISACODYL 10 MG SUPP (DULCOLAX) PR SCH (07:46)
[2020-04-21 18:08] VITALS: BP 98/62
--- NOTE | 2020-04-21 19:22 | NUR ---
Bedside report Received from SANIYA MARSHALL, assume care of pt
--- NOTE | 2020-04-21 21:20 | NUR ---
Pt refused Colace, Miralax & Senokot & Voltaren, C/O pain to rt arm & leg, pain level 8/10 on numeric scale, Oxyir 5mg crushed given pudding
--- NOTE | 2020-04-21 22:15 | NUR ---
resting quietly in bed, pain level 0/10 on CNPI SCALE
[2020-04-22 05:37] LABS: BASOPHILS % (AUTO) 0 % (0-10); EOSINOPHILS # (AUTO) 0.2 10^3/uL (0.0-0.3); EOSINOPHILS % (AUTO) 3 % (0-10); HEMATOCRIT 48 % (40-54); HEMOGLOBIN 15.8 g/dL (13.3-17.7); LYMPHOCYTES % (AUTO) 26 % (12-44); MEAN CORPUSCULAR HEMOGLOBIN 30 pg (25-34); MEAN CORPUSCULAR HGB CONC 33 g/dL (32-36); MEAN CORPUSCULAR VOLUME 90 fL (80-99); MEAN PLATELET VOLUME 11.5 fL (9.0-12.2); MONOCYTES # (AUTO) 0.8 10^3/uL (0.0-1.0); MONOCYTES % (AUTO) 11 % (0-12); NEUTROPHILS # (AUTO) 4.6 10^3/uL (1.8-7.8); NEUTROPHILS % (AUTO) 59 % (42-75); PLATELET COUNT 239 10^3/uL (130-400); WHITE BLOOD COUNT 7.7 10^3/uL (4.3-11.0)
[2020-04-22 06:00] VITALS: BP 108/68
[2020-04-22 06:00] LABS: ALBUMIN 3.4 GM/DL (3.2-4.5); CHLORIDE 105 MMOL/L (98-107); POTASSIUM 4.5 MMOL/L (3.6-5.0); SODIUM 140 MMOL/L (135-145)
[2020-04-22 06:01] LABS: CALCIUM 9.3 MG/DL (8.5-10.1)
[2020-04-22 06:02] LABS: GLUCOSE 89 MG/DL (70-105); TOTAL PROTEIN 6.7 GM/DL (6.4-8.2)
[2020-04-22 06:04] LABS: BILIRUBIN,TOTAL 0.5 MG/DL (0.1-1.0); CARBON DIOXIDE 25 MMOL/L (21-32)
[2020-04-22 06:06] LABS: ALKALINE PHOSPHATASE 134 U/L (40-136); GFR ESTIMATED > 60
[2020-04-22 06:07] LABS: BUN/CREATININE RATIO 19
[2020-04-22 06:09] LABS: ALANINE AMINOTRANSFERASE 97 U/L (0-55)
--- NOTE | 2020-04-22 06:26 | NUR ---
c/o rt arm & leg pain, level 9/10 on numeric scale, Oxyir 5mg crushed in pudding
--- NOTE | 2020-04-22 07:10 | NUR ---
Pain level 5/10 on numeric scale
[2020-04-22 08:00] VITALS: BP 103/63
--- NOTE | 2020-04-22 08:20 | PM&R Progress Note ---
Subjective HPI/CC On Admission Date Seen by Provider: Apr 22, 2020 Time Seen by Provider: 08:30 Subjective/Events-last exam 04/22/20: No major issues Expressive aphasia continues Bowels moved yesterday after suppository given every 48 hours 04/21/20: Suppository today and BM Incontinent of B/B Pain improved Does not need to increase Gabapentin 04/20/20: BM yesterday Pain improved Sleepy today Doing better Incontinence : Improve right sided nerve pain Xanax and pain pill helps him BM after suppository Q 48 hours Incontinent of B/B 04/18/20: BM 04/17/20 Eliquis causes blurry vision per sister so will inquire with Dr Gibson regarding Xarelto Incontinent 04/17/20: Bowels not moving so will initiate Dulcolax suppository every 48hrs after laxatives given and he is agreeable for that plan Denies any significant new issues Pain is getting much better with the Gabapentin twice daily and Oxycodone 04/16/20: Right-sided pain still so increased Gabapentin to 300 Mg BID Xanax will help too Oxycodone also helps 04/15/20: Gabapentin maintained Oxycodone maintained Confusion noted? 04/14/20: Monitoring BP Pain right side still present and will increase Gabapentin 04/13/20: Right arm and right leg pain and issue Oxycodone not really helping Nerve pain so will give Gabapentin 04/12/20: Severe pain on right side Oxycodone ordered Participating in therapies well No other pain Pt doing pretty well Expressive aphasia is an issue WBC is 12.4 CMP normal Consulting cardiology Overall doing very well Conferred with RN Checked meds and labs Reviewed therapy notes Review of Systems General: Fatigue, Malaise Gastrointestinal: Constipation Neurological: Weakness, Incoordination Objective Exam Vital Signs Vital Signs Date Time Temp Pulse Resp B/P (MAP) Pulse Ox O2 Delivery O2 Flow Rate FiO2 04/22/20 20:10 Room Air 04/22/20 18:31 36.2 78 18 100/58 (72) 98 Capillary Refill : Less Than 3 Seconds General Appearance: No Apparent Distress, WD/WN, Chronically ill HEENT: PERRL/EOMI, Normal ENT Inspection, Pharynx Normal Neck: Full Range of Motion, Normal Inspection, Non Tender, Supple, Carotid Bruit Respiratory: Chest Non Tender, Lungs Clear, Normal Breath Sounds, No Accessory Muscle Use, No Respiratory Distress Cardiovascular: Regular Rate, Rhythm, No Edema, No Gallop, No JVD, No Murmur, Normal Peripheral Pulses Gastrointestinal: Normal Bowel Sounds, No Organomegaly, No Pulsatile Mass, Non Tender, Soft Back: Normal Inspection, No CVA Tenderness, No Vertebral Tenderness Extremity: Normal Capillary Refill, Normal Inspection, Normal Range of Motion, Non Tender, No Calf Tenderness, No Pedal Edema Neurologic/Psychiatric: Alert, Normal Mood/Affect, Abnormal Gait, Aphasia, Depressed Affect, Disoriented, Motor Weakness (right sided flaccidity) Skin: Normal Color, Warm/Dry Lymphatic: No Adenopathy Results/Procedures Lab Patient resulted labs reviewed. FIM Transfers Therapy Code Descriptions/Definitions Functional [place] Measure: 0=Not Assessed/NA 4=Minimal Assistance 1=Total Assistance 5=Supervision or Setup 2=Maximal Assistance 6=Modified [place] 3=Moderate Assistance 7=Complete IndependenceSCALE: Activities may be completed with or without assistive devices. 2-Uyoklpzfhf-mqihytg completes the activity by him/herself with no assistance from a helper. 5-Set-up or Clean-up Assistance-helper sets up or cleans up; patient completes activity. [place] assists only prior to or following the activity. 4-Supervision or Touching Assistance-helper provides verbal cues and/or touching/steadying and/or contact guard assistance as patient completes activity. Assistance may be provided throughout the activity or intermittently. 3-Partial/Moderate Assistance-helper does LESS THAN HALF the effort. [place] lifts, holds or supports trunk or limbs, but provides less than half the effort. 2-Substantial/Maximal Assistance-helper does MORE THAN HALF the effort. [place] lifts or holds trunk or limbs and provides more than half the effort. 4-Udxqdyckw-zuysxp does ALL the effort. Patient does none of the effort to complete the activity. Or, the assistance of 2 or more helpers is required for the patient to complete the activity. If activity was not attempted, code reason: 7-Patient Refused. 9-Not Applicable-not attempted and the patient did not perform the activity bef ore the current illness, exacerbation or injury. 10-Not Attempted due to Environmental Limitations-(lack of equipment, weather r estraints, etc.). 88-Not Attempted due to Medical Conditions or Safety Concerns. Roll Left to Right (QC): 2 Sit to Lying (QC): 2 Sit to Stand (QC): 2 Chair/Bgh-gl-Jytdq Xfer(QC): 2 Car Transfer (QC): 2 Gait Training Does the Patient Walk?: Yes Distance: 3 x 8 ft Walk 10 feet (QC): 2 Walk 50 ft with 2 Turns(QC): 88 Walk 150 ft (QC): 88 Walking 10ft/uneven surface-QC: 88 Gait Persons Needed: 2 Gait Assistive Device: Parallel Bars Wheelchair Training Does the Pt Use a Wheelchair?: Yes Wheel 50 ft with 2 turns (QC): 4 Wheel 150 ft (QC): 3 Type of Wheelchair: Manual Stair Training 1 Step (curb) (QC): 88 4 Steps (QC): 88 12 Steps (QC): 88 Balance Picking up an Object (QC): 88 ADL-Treatment Eating (QC): 4 (SUP during ice chip) Oral Hygiene (QC): 4 (SBA with cues for adaptive technique- pt places toothpaste under R hand, sqeezes into tub with L and scrapes up with toothbrush. Pt completes with SBA.) Bathing Location: R Arm, L Upper Leg, R Upper Leg, L Lower Leg (including foot), R Lower Leg (including foot), Chest, Abdomen, Buttocks, Perineal Area Shower/Bathe Self (QC): 3 (min A upon sit in sc. Pt able to reach all areas, CGA during LE washing with LHS due to balance deficit and min A for bottom thoroughness.) Upper Body Dressing (QC): 3 (IND doffingMin A donning.) Lower Body Dressing (QC): 3 (OT threads RLE, Pt able to thread LLE. Pt bridges in bed to dry chain puller hips. Assist in stance to pull up on R side fully. 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 Defib in place Cardiomyopathy HTN Plan: Monitor dysphagia Cardiology consultation IRF protocol 04/11/20: Monitor BP Appreciate Cardiology 04/12/20: Monitor closely Pain management 04/13/20: Gabapentin Oxycodone 04/14/20: Increase Gabapentin Oxycodone BM regimen to increase today may need supp 04/15/20: BM++ Monitor pain of right side 04/16/20: Increase dose of Neurontin Maintain aggressive rehab 04/17/20: BM regimen to include supp Q48 hrs Monitor pain Monitor BP 04/18/20: Increased Gabpentin some more today BM regimen 04/19/20: Manage incontinence Right arm and right leg pain management 04/20/20: Maintain pain control Incontinence management BM regimen 04/21/20: Suppository [id number] Monitor closely Pain control 04/22/20: Continue BM regimen Monitor right sided pain (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
--- NOTE | 2020-04-22 08:37 | Cardiology Progress Note ---
Subjective Date Seen by Provider: Apr 22, 2020 Time Seen by Provider: 08:36 Subjective/Events-last exam Patient doing ADL's with PT/OT. No new complaints. Denies any chest pain or palpitations. Review of Systems General: No Chills, No Night Sweats, No Fatigue, No Malaise, No Appetite, No O ther HEENT: No Head Aches, No Visual Changes, No Eye Pain, No Ear Pain, No Dys phasia, No Sinus Congestion, No Post Nasal Drip, No Sore Throat, No Other Pulmonary: No Dyspnea, No Cough, No Pleuritic Chest Pain, No Other Cardiovascular: No: Chest Pain, Palpitations, Orthopnea, Paroxysmal Noc. Dyspnea, Edema, Lt Headedness, Other Objective-Cardiology Exam Last Set of Vital Signs Vital Signs 04/22/20 04/22/20 06:00 09:00 Temp 36.0 Pulse 80 Resp 18 B/P (MAP) 108/68 (81) Pulse Ox 99 O2 Delivery Room Air Capillary Refill : Less Than 3 Seconds I&O Intake and Output 04/22/20 00:00 Intake Total 1180 ml Balance 1180 ml Intake Oral 1180 ml # Voids 5 # Urine Diapers 3 # Bowel Movements 1 General: Alert, Oriented X3, Cooperative HEENT: Atraumatic, PERRLA Neck: Supple, No JVD, No Thyromegaly Lungs: Clear to Auscultation, Normal Air Movement Heart: Regular Rate, Normal S1, Normal S2, No Murmurs Abdomen: Normal Bowel Sounds, Soft, No Tenderness, No Hepatosplenomegaly, No Masses Extremities: No Edema Skin: No Rashes, No Significant Lesion Neuro: Other (right side hemiparesis) Results Lab Laboratory Tests 04/22/20 05:30 A/P-Cardiology Admission Diagnosis CVA Cardiomyopathy Atrial fibrillation Assessment/Plan Acute CVA, status post mechanical aspiration done at . Still has residual deficits, right sided weakness. Aggressive inpatient rehabilitation. Hx of previous CVA in 2009 and 2014 Cardiomyopathy, EF 10-15% per 2D Echo done at on 03/30/[address]. Underwent [facility] ICD and AV node ablation on 04/02/[address] Witt at . Maintained on ROMULO inhibitor, beta evan. Atrial fibrillation with rapid ventricular rate, EKG shows V paced rhythm. On Eliquis. Recent AV node ablation Hypertension, currently hypotensive. I will decrease losartan, continue to monitor. Patient was seen and evaluated with [place], examination performed, management plan was discussed, agree with the current scribed note, I made few changes to the note using Italic font Patient was seen at bedside, sitting comfortably, no new complaint Continue on current medication monitor Clinical Quality Measures DVT/VTE Risk/Contraindication: Risk Factor Score Per Nursin RFS Level Per Nursing on Admit: 4+=Very High ITALIA MORFIN Apr 22, 2020 8:37 am DEVON CHAN MD Apr 22, 2020 12:13 pm
--- NOTE | 2020-04-22 08:59 | Physical Therapy Daily Note ---
PT Daily Note-Current Subjective Patient in bed pre tx, agrees to PT, has no complaints of pain. Will be co- treating with OT due to poor patient mobility, strength, endurance, right hemiparesis, the need to coordinate UE and LE during activity. Appearance Patient in therapy gym post tx to continue to work with OT. Mental Status Patient Orientation: Person, Unable to Assess, Non-Verbal/Aphasic Transfers SCALE: Activities may be completed with or without assistive devices. 7-Cnrgapdnvo-hruhtvo completes the activity by him/herself with no assistance from a helper. 5-Set-up or Clean-up Assistance-helper sets up or cleans up; patient completes activity. [place] assists only prior to or following the activity. 4-Supervision or Touching Assistance-helper provides verbal cues and/or touching/steadying and/or contact guard assistance as patient completes activity. Assistance may be provided throughout the activity or intermittently. 3-Partial/Moderate Assistance-helper does LESS THAN HALF the effort. [place] l ifts, holds or supports trunk or limbs, but provides less than half the effort. 2-Substantial/Maximal Assistance-helper does MORE THAN HALF the effort. [place] lifts or holds trunk or limbs and provides more than half the effort. 7-Apredlvzu-cduuhk does ALL the effort. Patient does none of the effort to complete the activity. Or, the assistance of 2 or more helpers is required for t he patient to complete the activity. If activity was not attempted, code reason: 7-Patient Refused. 9-Not Applicable-not attempted and the patient did not perform the activity before the current illness, exacerbation or injury. 10-Not Attempted due to Environmental Limitations-(lack of equipment, weather restraints, etc.). 88-Not Attempted due to Medical Conditions or Safety Concerns. Roll Left & Right (QC): 3 Sit to Lying (QC): 3 Lying to Sitting/Side of Bed(Q: 3 Sit to Stand (QC): 3 Chair/Hxo-xx-Zepqf Xfer(QC): 3 Supine to sit and then transfer to (stand pivot) with min assist, propel WC to shower room with SBA, stand and undress and change to shower chair. Patient showers, dry off, stand and partly dress, change to , sit and continue dressing. Patient needs min assist for transfers and sit to stand and for sitting balance during shower. Then propelled WC to therapy gym, stand pivot to table and worked on sitting balance and limits of stabiliy in all 4 ways. Sitting balance activity with cone reaching. Weight Bearing Full Weight Bearing Full Weight Bearing Treatments PT worked on bed mobility and transfers, standing and balance during shower and dressing, WC mobility, sitting balance. OT worked on sitting balance, dressing, bathing. Assessment Current Status: Fair Progress slightly improved transfers PT Short Term Goals Short Term Goals Time Frame: Apr 18, 2020 Roll Left & Right: 3 Sit to lyin Lying to sitting on side of be: 3 Sit to stand: 3 Chair/geo-aq-vjlgb transfer: 3 PT Mcc Goals Mcc Goals PT Customizer Goals Time Frame: May 02, 2020 Roll Left & Right (QC): 3 (Zoya) Sit to Lying (QC): 3 (Zoya) Lying-Sitting on Side/Bed(QC): 3 (Zoya) Sit to Stand (QC): 3 (Zoya) Chair/Dag-in-Gywnk Xfer(QC): 3 (Zoya) Toilet Transfer (QC): 3 (Zoya) Car Transfer (QC): 3 (Zoya) Does the Patient Walk: No and Walking Goal NOT indicated Walk 10 feet (QC): 88 Walk 50ft with 2 Turns (QC): 88 Walk 150 ft (QC): 88 Walking 10ft on Uneven Surface: 88 1 Step (curb) (QC): 88 4 Steps (QC): 88 12 Steps (QC): 88 Picking up an Object (QC): 88 Wheel 50 feet with 2 turns (QC: 4 Wheel 150 feet: 4 PT Plan Problem List Problem List: Activity Tolerance, Functional Strength, Safety, Balance, Gait, Transfer, Bed Mobility, ROM Treatment/Plan Treatment Plan: Continue Plan of Care Treatment Plan: Bed Mobility, Education, Functional Activity [place], Functional Strength, Group Therapy, Gait, Safety, Therapeutic Exercise, Transfers Treatment Duration: May 01, 2020 Frequency: At least 5 of 7 days/Wk (IRF) Estimated Hrs Per Day: 1.5 hours per day Patient and/or Family Agrees t: Yes Safety Risks/Education Patient Education: Transfer Techniques, Correct Positioning, W/C Management, Safety Issues Teaching Recipient: Patient Teaching Methods: Demonstration, Discussion Response to Teaching: Reinforcement Needed Time/GCodes Time In: 0800 Time Out: 0900 Total Billed Treatment Time: 60 Total Billed Treatment 1 visit FA 45' NM 15' DARRYL BARTLETT PT Apr 22, 2020 08:59
--- NOTE | 2020-04-22 09:31 | Occupational Ther Daily Note ---
OT Current Status-Daily Note Subjective Pt alert upon entry. When asked if pain, pt replies, "no," and points to R side of body. Pt agrees that pain has decreased. Pt agrees to tx this am. OT/ PT co-treat [id number] with OT addressing UE movement, ADLs, visual scanning, balance and PT addressing fx transfers, LE movement, sitting/ standing balance. OT individual tx: [id number] ADL-Treatment Therapy Code Descriptions/Definitions Functional [place] Measure: 0=Not Assessed/NA 4=Minimal Assistance 1=Total Assistance 5=Supervision or Setup 2=Maximal Assistance 6=Modified [place] 3=Moderate Assistance 7=Complete IndependenceSCALE: Activities may be completed with or without assistive devices. 8-Wlmturjzgu-aiscpjt completes the activity by him/herself with no assistance from a helper. 5-Set-up or Clean-up Assistance-helper sets up or cleans up; patient completes activity. [place] assists only prior to or following the activity. 4-Supervision or Touching Assistance-helper provides verbal cues and/or touching/steadying and/or contact guard assistance as patient completes activity. Assistance may be provided throughout the activity or intermittently. 3-Partial/Moderate Assistance-helper does LESS THAN HALF the effort. [place] lifts, holds or supports trunk or limbs, but provides less than half the effort. 2-Substantial/Maximal Assistance-helper does MORE THAN HALF the effort. [place] lifts or holds trunk or limbs and provides more than half the effort. 0-Vkvljpmnu-uzpciv does ALL the effort. Patient does none of the effort to complete the activity. Or, the assistance of 2 or more helpers is required for the patient to complete the activity. If activity was not attempted, code reason: 7-Patient Refused. 9-Not Applicable-not attempted and the patient did not perform the activity before the current illness, exacerbation or injury. 10-Not Attempted due to Environmental Limitations-(lack of equipment, weather restraints, etc.). 88-Not Attempted due to Medical Conditions or Safety Concerns. Oral Hygiene (QC): 4 (SBA with tasks, pt able to manipulate all items with L hand and skilled cues for use of mouth as adaptive technique) Bathing Location: L Arm, R Arm, L Upper Leg, R Upper Leg, L Lower Leg (including foot), R Lower Leg (including foot), Chest, Abdomen, Buttocks, Perineal Area Shower/Bathe Self (QC): 4 (CGA during reaching tasks, SBA all other tasks on sc. Pt completes all areas on sc, including BUE and bottom) Upper Body Dressing (QC): 3 (min A with R UE (stabilizing RUE in position and adjustment on R side)) Lower Body Dressing (QC): 1 (TD due to need of 2 therapists. OT completes RLE threading and pt compeltes LLE, stance with PT as OT completes brief and pant donning over hips.) Other Treatment Pt bed mob min A. Transfers w/c with safety. Pt desires shower, propels self to shower room. Sit to stand at gb with min A and CGA-min A as w/c swapped with sc. Pt completes showering/ dressing as outlined. Increased dynamic sitting balance with CGA as pt reaches to feet for cleaning. Pt propels to gym, sits EOM with Ax1. Pt completes dynamic balance tasks, including reaching L/ R with noted decrease and CGA in R side plane and forward/ backward for modified sit ups. Pt has fair control during these tasks. Pt is brought to supine with CGA, completes RUE stretching with skilled cues for mm relaxation in axillary region. Pt completes 3 reps of 10 bridges with CGA on R knee due to decreased strength of hip adductors. Pt SPT to w/c and propels to room, SPT to chair with education/ repetition of 3 steps for safe transfer. Pt completes oral care as outlined, left in recliner with call light in reach, chair alarm on, LE's elevated. Education OT Patient Education: Correct positioning, Exercise program, Home exercise program, Modified ADL techniques, Progress toward Goal/Update tx plan, Purpose of tx/functional activities, Safety issues, Transfer techniques Teaching Recipient: Patient Teaching Methods: Demonstration, Discussion Response to Teaching: Verbalize Understanding, Return Demonstration, Reinforcement Needed OT Short Term Goals Short Term Goals Eatin Oral hygiene: 5 Toileting hygiene: 2 Shower/bathe self: 2 Upper body dressin Lower body dressin Putting on/taking off footwear: 2 OT Fdc Goals Bulb Brander Goals Time Frame: Apr 24, 2020 Eating (QC): 6 Oral Hygiene (QC): 6 Toileting Hygiene (QC): 3 Shower/Bathe Self (QC): 3 Upper Body Dressing (QC): 6 Lower Body Dressing (QC): 3 On/Off Footwear (QC): 6 Additional Goals: 1-Demonstrate ADL Tasks, 2-Verbalize Understanding, 3- ImproveStrength/[place] 1=Demonstrate adherence to instructed precautions during ADL tasks. 2=Patient will verbalize/demonstrate understanding of assistive devices/modifications for ADL. 3=Patient will improve strength/tolerance for activity to enable patient to perform ADL's. OT Education/Plan Problem List/Assessment Assessment: Decreased Activ Tolerance, Decreased Safety Aware, Decreased UE Strength, Dependent Transfers, Impaired Bed Mobility, Impaired Cognition, Impaired Coordination, Impaired Funct Balance, Impaired I ADL's, Impaired Self- Care Skills, Restricted Funct UE ROM, Visual-Perceptual Deficit Discharge Recommendations Plan/Recommendations: Continue POC Therapy Discharge Recommendati: 24 Hour Supervision, Assisted Living, Post Acute OT Treatment Plan/Plan of Care Treatment,Training & Education: Yes Patient would benefit from OT for education, treatment and training to promote independence in ADL's, mobility, safety and/or upper extremity function for ADL's. Plan of Care: ADL Retraining, Caregiver Training, Concurrent Therapy, Functional Mobility, Group Exercise/Act as Ind, Orthotic Fitting/Training, UE Funct Exercise/Act, UE Neuromus Re-Ed/Coord, Visual/Perceptual Retrain, W/C Management Training Treatment Duration: Apr 24, 2020 Frequency: At least 5 of 7 days/Wk (IRF) Estimated Hrs Per Day: 1.5 hours per day Agreement: Yes Rehab Potential: Guarded Time/GCodes Start Time: 08:00 Stop Time: 09:15 Total Time Billed (hr/min): 75 Billed Treatment Time OT/ PT co-treat [id number] with OT addressing UE movement, ADLs, visual scanning, balance and PT addressing fx transfers, LE movement, sitting/ standing balance. OT individual tx: [id number] 1, ADL 2 (30), NM 3 (45) = 75 FATIMAH KERNS OTR Apr 22, 2020 09:31
[2020-04-22] MEDS: SPIRONOLACTONE 25 MG (ALDACTONE) TAB PO SCH (09:37)
[2020-04-22] MEDS: FUROSEMIDE 20 MG (LASIX) TAB PO SCH (09:37)
[2020-04-22] MEDS: polyethylene glycoL POWDER 17 GM (MIRALAX) PACK PO SCH ×2 (09:37→19:56)
[2020-04-22] MEDS: GABAPENTIN 400 MG (NEURONTIN) CAP PO SCH ×2 (09:37→21:16)
[2020-04-22] MEDS: SENNA W/DOCUSATE (SENOKOT S) TABLET PO SCH ×2 (09:37→21:17)
[2020-04-22] MEDS: DOCUSATE SODIUM 100 MG (COLACE) CAP PO SCH ×2 (09:37→21:17)
[2020-04-22] MEDS: LOSARTAN 50 MG (COZAAR) TAB PO SCH (09:37)
[2020-04-22] MEDS: BISOPROLOL 5 MG TAB (ZEBETA) PO SCH (09:37)
[2020-04-22] MEDS: APIXABAN 5 MG (ELIQUIS) TABLET PO SCH ×2 (09:37→21:17)
[2020-04-22] MEDS: ASPIRIN 81 MG CHEW (CHILDREN'S ASA) PO SCH (09:37)
[2020-04-22] MEDS: DICLOFENAC 1% GEL 100 GM (VOLTAREN) TUBE TOP SCH ×4 (09:38→21:17)
--- NOTE | 2020-04-22 12:44 | Speech Therapy Daily Note ---
Speech Daily Progress Note Subjective Date Seen by Provider: Apr 22, 2020 Time Seen by Provider: 00:30 Patient was resting in his recliner following OT and a shower. Objective Patient completed a series of pictures "what's missing?" with 50% word finding given 25% verbal and/or visual cuing. Assessment Assessment Current Status: Fair Progress Treatment Plan Continue Plan of Care Speech Short Term Goals Short Term Goals Short Term Goals 1) The patient will complete OME for improved speech production at each session with 80% or greater accuracy. 2) The patient will complete word finding tasks with 80% or greater accuracy. 3) The patient will complete expressive language tasks 80% or greater accuracy. 4) The patient will tolerate least restrictive diet level without s/s of aspiration at 80% or greater accuracy. 5) The patient will utilize compensatory strategies as trained 80% or greater accuracy. Speech Pharmacists Goals Penitentiary Goals Patient will improve cognitive-communication abilities for completion of daily needs with minimal assist. Patient will maintain adequate nutrition/hydration via safe effective swallow function. Speech-Plan Patient/Family Goals Patient/Family Goals: Patient plans on returning to his home where he lives with his sister and brother in law. Treatment Plan Speech Therapy Treatment Plan: Continue Plan of Care Treatment Duration: Apr 26, 2020 Frequency: 4 times per week (Patient will receive skilled ST 4-5x per week) Estimated Hrs Per Day: .5 hour per day Rehab Potential: Guarded Barriers to Learning: Patient's CVA and expressive aphasia Pt/Family Agrees to Plan: Yes Safety Risks/Education Teaching Recipient: Patient Teaching Methods: Demonstration, Discussion Response to Teaching: Verbalize Understanding, Return Demonstration Education Topics Provided: Continued safety and call light as needed, Continued safety with oral intake Time Speech Therapy Time In: 10:30 Speech Therapy Time Out: 11:00 Total Billed Time: 30 Billed Treatment Time 1, SLDECLAN, DYST FIDEL Hooper Apr 22, 2020 12:44
--- NOTE | 2020-04-22 14:16 | Physical Therapy Daily Note ---
PT Daily Note-Current Subjective Patient in bed pre tx, agrees to PT, no complaints of pain. Appearance Patient in bed post tx with nurse call, phone, tray, all needs met. Mental Status Patient Orientation: Person, Unable to Assess, Non-Verbal/Aphasic Transfers SCALE: Activities may be completed with or without assistive devices. 6-Lkyepfhkwr-wevjglq completes the activity by him/herself with no assistance from a helper. 5-Set-up or Clean-up Assistance-helper sets up or cleans up; patient completes activity. [place] assists only prior to or following the activity. 4-Supervision or Touching Assistance-helper provides verbal cues and/or touching/steadying and/or contact guard assistance as patient completes activity. Assistance may be provided throughout the activity or intermittently. 3-Partial/Moderate Assistance-helper does LESS THAN HALF the effort. [place] lifts, holds or supports trunk or limbs, but provides less than half the effort. 2-Substantial/Maximal Assistance-helper does MORE THAN HALF the effort. [place] lifts or holds trunk or limbs and provides more than half the effort. 3-Vwfrjabdj-lvacdw does ALL the effort. Patient does none of the effort to complete the activity. Or, the assistance of 2 or more helpers is required for the patient to complete the activity. If activity was not attempted, code reason: 7-Patient Refused. 9-Not Applicable-not attempted and the patient did not perform the activity before the current illness, exacerbation or injury. 10-Not Attempted due to Environmental Limitations-(lack of equipment, weather restraints, etc.). 88-Not Attempted due to Medical Conditions or Safety Concerns. Weight Bearing Full Weight Bearing Full Weight Bearing Exercises Supine Ex: Heel Slides, Short Arc Quads, Straight leg raise, Hip abd/add Supine Reps: 20 (mostly PROM but patient was able to assist with hip abd/add) PROM/stretching RLE in all planes, patient expressed some pain with hamstring stretching Treatments RLE stretching and ROM Assessment Current Status: Fair Progress Patient now has just a little active muscle contraction in his right leg. PT Short Term Goals Short Term Goals Time Frame: Apr 18, 2020 Roll Left & Right: 3 Sit to lyin Lying to sitting on side of be: 3 Sit to stand: 3 Chair/syo-rg-ahjfy transfer: 3 PT Eyewear Consultant Goals Eyewear Consultant Goals PT Usp Goals Time Frame: May 02, 2020 Roll Left & Right (QC): 3 (Zoya) Sit to Lying (QC): 3 (Zoya) Lying-Sitting on Side/Bed(QC): 3 (Zoya) Sit to Stand (QC): 3 (Zoya) Chair/Wlp-dd-Wcvtx Xfer(QC): 3 (Zoya) Toilet Transfer (QC): 3 (Zoya) Car Transfer (QC): 3 (Zoya) Does the Patient Walk: No and Walking Goal NOT indicated Walk 10 feet (QC): 88 Walk 50ft with 2 Turns (QC): 88 Walk 150 ft (QC): 88 Walking 10ft on Uneven Surface: 88 1 Step (curb) (QC): 88 4 Steps (QC): 88 12 Steps (QC): 88 Picking up an Object (QC): 88 Wheel 50 feet with 2 turns (QC: 4 Wheel 150 feet: 4 PT Plan Problem List Problem List: Activity Tolerance, Functional Strength, Safety, Balance, Gait, Transfer, Bed Mobility, ROM Treatment/Plan Treatment Plan: Continue Plan of Care Treatment Plan: Bed Mobility, Education, Functional Activity [place], Functional Strength, Group Therapy, Gait, Safety, Therapeutic Exercise, Transfers Treatment Duration: May 01, 2020 Frequency: At least 5 of 7 days/Wk (IRF) Estimated Hrs Per Day: 1.5 hours per day Patient and/or Family Agrees t: Yes Safety Risks/Education Patient Education: Correct Positioning, Safety Issues Teaching Recipient: Patient Teaching Methods: Demonstration, Discussion Response to Teaching: Reinforcement Needed Time/GCodes Time In: 1300 Time Out: 1315 Total Billed Treatment Time: 15 Total Billed Treatment 1 visit EX DARRYL JORGE PT Apr 22, 2020 14:16
--- NOTE | 2020-04-22 15:04 | NUR ---
CM/SS CONCURRENT DOCUMENTATION Visited with patient's sister/POA Anabela Hollis who will be coming tomorrow for family education and training at 1300. We will then meet to explore discharge planning for post hospital care. Anabela has already confirmed she and her will not be able to provide for patient in their home due to their employment/time constraints and general environment. BARRIERS TO DISCHARGE PLANNING: Patient remains uninsured and Medicaid pending; JULIA/Saad checked today and he has not been approved or assigned a number. Explored facility options with Anabela: Considering patient's age at 59 and previous independent lifestyle, assisted living would be a desirable next step. Each [facility] considering patient would do so based on their one community as far as limitations re patient care needs and level of assistance. [facility] is their first choice due to close proximity to their home. Director and director of recruitment and admissions there confirmed they would consider a Medicaid Pending. [facility] has rooms open but leader writer has not been able to access the Director to confirm whether they would take Medicaid pending. 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 [facility], no rooms. [facility], private pay only, no Medicaid. [facility], least desirable for family due to distance.
[2020-04-22 18:31] VITALS: BP 100/58
[2020-04-23] MEDS: BISACODYL 10 MG SUPP (DULCOLAX) PR SCH (05:57)
[2020-04-23 06:37] VITALS: BP 99/63
--- NOTE | 2020-04-23 08:51 | PM&R Progress Note ---
Subjective HPI/CC On Admission Date Seen by Provider: Apr 23, 2020 Time Seen by Provider: 08:30 Subjective/Events-last exam 04/23/20: BM after suppository every 48hrs Gabapentin BID seems to be working pretty well Using Oxycodone when Gabapentin is not enough No falls 04/22/20: No major issues Expressive aphasia continues Bowels moved yesterday after suppository given every 48 hours 04/21/20: Suppository today and BM Incontinent of B/B Pain improved Does not need to increase Gabapentin 04/20/20: BM yesterday Pain improved Sleepy today Doing better Incontinence : Improve right sided nerve pain Xanax and pain pill helps him BM after suppository Q 48 hours Incontinent of B/B 04/18/20: BM 04/17/20 Eliquis causes blurry vision per sister so will inquire with Dr Gibson regarding Xarelto Incontinent 04/17/20: Bowels not moving so will initiate Dulcolax suppository every 48hrs after laxatives given and he is agreeable for that plan Denies any significant new issues Pain is getting much better with the Gabapentin twice daily and Oxycodone 04/16/20: Right-sided pain still so increased Gabapentin to 300 Mg BID Xanax will help too Oxycodone also helps 04/15/20: Gabapentin maintained Oxycodone maintained Confusion noted? 04/14/20: Monitoring BP Pain right side still present and will increase Gabapentin 04/13/20: Right arm and right leg pain and issue Oxycodone not really helping Nerve pain so will give Gabapentin 04/12/20: Severe pain on right side Oxycodone ordered Participating in therapies well No other pain Pt doing pretty well Expressive aphasia is an issue WBC is 12.4 CMP normal Consulting cardiology Overall doing very well Conferred with RN Checked meds and labs Reviewed therapy notes Review of Systems General: Fatigue, Malaise Musculoskeletal: leg pain Neurological: Weakness, Incoordination Objective Exam Vital Signs Vital Signs Date Time Temp Pulse Resp B/P (MAP) Pulse Ox O2 Delivery O2 Flow Rate FiO2 04/23/20 20:10 Room Air 04/23/20 18:23 36.4 80 18 107/67 (80) 98 Capillary Refill : Less Than 3 Seconds General Appearance: No Apparent Distress, WD/WN, Chronically ill HEENT: PERRL/EOMI, Normal ENT Inspection, Pharynx Normal Neck: Full Range of Motion, Normal Inspection, Non Tender, Supple, Carotid Bruit Respiratory: Chest Non Tender, Lungs Clear, Normal Breath Sounds, No Accessory Muscle Use, No Respiratory Distress Cardiovascular: Regular Rate, Rhythm, No Edema, No Gallop, No JVD, No Murmur, Normal Peripheral Pulses Gastrointestinal: Normal Bowel Sounds, No Organomegaly, No Pulsatile Mass, Non Tender, Soft Back: Normal Inspection, No CVA Tenderness, No Vertebral Tenderness Extremity: Normal Capillary Refill, Normal Inspection, Normal Range of Motion, Non Tender, No Calf Tenderness, No Pedal Edema Neurologic/Psychiatric: Alert, Normal Mood/Affect, Abnormal Gait, Aphasia, Depressed Affect, Disoriented, Motor Weakness (right sided flaccidity) Skin: Normal Color, Warm/Dry Lymphatic: No Adenopathy Results/Procedures Lab Patient resulted labs reviewed. FIM Transfers Therapy Code Descriptions/Definitions Functional [place] Measure: 0=Not Assessed/NA 4=Minimal Assistance 1=Total Assistance 5=Supervision or Setup 2=Maximal Assistance 6=Modified [place] 3=Moderate Assistance 7=Complete IndependenceSCALE: Activities may be completed with or without assistive devices. 3-Rawqqufkpv-fsjurtf completes the activity by him/herself with no assistance from a helper. 5-Set-up or Clean-up Assistance-helper sets up or cleans up; patient completes activity. [place] assists only prior to or following the activity. 4-Supervision or Touching Assistance-helper provides verbal cues and/or touching/steadying and/or contact guard assistance as patient completes activity. Assistance may be provided throughout the activity or intermittently. 3-Partial/Moderate Assistance-helper does LESS THAN HALF the effort. [place] lifts, holds or supports trunk or limbs, but provides less than half the effort. 2-Substantial/Maximal Assistance-helper does MORE THAN HALF the effort. [place] lifts or holds trunk or limbs and provides more than half the effort. 9-Ovyqtpbnl-vfxwow does ALL the effort. Patient does none of the effort to complete the activity. Or, the assistance of 2 or more helpers is required for the patient to complete the activity. If activity was not attempted, code reason: 7-Patient Refused. 9-Not Applicable-not attempted and the patient did not perform the activity before the current illness, exacerbation or injury. 10-Not Attempted due to Environmental Limitations-(lack of equipment, weather restraints, etc.). 88-Not Attempted due to Medical Conditions or Safety Concerns. Roll Left to Right (QC): 3 Sit to Lying (QC): 3 Sit to Stand (QC): 3 Chair/Qgl-vb-Lhjvz Xfer(QC): 3 Car Transfer (QC): 2 Gait Training Distance: 3 x 8 ft Walk 10 feet (QC): 2 Walk 50 ft with 2 Turns(QC): 88 Walk 150 ft (QC): 88 Walking 10ft/uneven surface-QC: 88 Gait Persons Needed: 2 Gait Assistive Device: Parallel Bars Wheelchair Training Wheel 50 ft with 2 turns (QC): 4 Wheel 150 ft (QC): 3 Stair Training 1 Step (curb) (QC): 88 4 Steps (QC): 88 12 Steps (QC): 88 Balance Picking up an Object (QC): 88 ADL-Treatment Eating (QC): 4 (SUP during ice chip) Oral Hygiene (QC): 4 (SBA with tasks, pt able to manipulate all items with L hand and skilled cues for use of mouth as adaptive technique) Bathing Location: L Arm, R Arm, L Upper Leg, R Upper Leg, L Lower Leg (including foot), R Lower Leg (including foot), Chest, Abdomen, Buttocks, Perineal Area Shower/Bathe Self (QC): 4 (CGA during reaching tasks, SBA all other tasks on sc. Pt completes all areas on sc, including BUE and bottom) Upper Body Dressing (QC): 3 (min A with R UE (stabilizing RUE in position and adjustment on R side)) Lower Body Dressing (QC): 1 (TD due to need of 2 therapists. 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 Defib in place Cardiomyopathy HTN Plan: Monitor dysphagia Cardiology consultation IRF protocol 04/11/20: Monitor BP Appreciate Cardiology 04/12/20: Monitor closely Pain management 04/13/20: Gabapentin Oxycodone 04/14/20: Increase Gabapentin Oxycodone BM regimen to increase today may need supp 04/15/20: BM++ Monitor pain of right side 04/16/20: Increase dose of Neurontin Maintain aggressive rehab 04/17/20: BM regimen to include supp Q48 hrs Monitor pain Monitor BP 04/18/20: Increased Gabpentin some more today BM regimen 04/19/20: Manage incontinence Right arm and right leg pain management 04/20/20: Maintain pain control Incontinence management BM regimen 04/21/20: Suppository [id number] Monitor closely Pain control 04/22/20: Continue BM regimen Monitor right sided pain 04/23/20: BM regimen PT OT Incontinence care (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
--- NOTE | 2020-04-23 09:00 | Physical Therapy Daily Note ---
PT Daily Note-Current Subjective Patient in bed pre tx, agrees to PT, has no complaints of pain but has had a BM. Will be co-treating with OT due to poor patient mobility, strength, endurance, right hemiparesis, poor sitting and standing balance, the need to coordinate UE and LE during activity. Appearance Patient in WC in room post tx with OT for continued ADL's Transfers SCALE: Activities may be completed with or without assistive devices. 1-Aqsojpstcy-aysqnpg completes the activity by him/herself with no assistance from a helper. 5-Set-up or Clean-up Assistance-helper sets up or cleans up; patient completes activity. [place] assists only prior to or following the activity. 4-Supervision or Touching Assistance-helper provides verbal cues and/or touching/steadying and/or contact guard assistance as patient completes activity. Assistance may be provided throughout the activity or intermittently. 3-Partial/Moderate Assistance-helper does LESS THAN HALF the effort. [place] lifts, holds or supports trunk or limbs, but provides less than half the effort. 2-Substantial/Maximal Assistance-helper does MORE THAN HALF the effort. [place] lifts or holds trunk or limbs and provides more than half the effort. 5-Ehmyhixxs-ednnhz does ALL the effort. Patient does none of the effort to complete the activity. Or, the assistance of 2 or more helpers is required for the patient to complete the activity. If activity was not attempted, code reason: 7-Patient Refused. 9-Not Applicable-not attempted and the patient did not perform the activity before the current illness, exacerbation or injury. 10-Not Attempted due to Environmental Limitations-(lack of equipment, weather restraints, etc.). 88-Not Attempted due to Medical Conditions or Safety Concerns. Roll Left & Right (QC): 3 Sit to Lying (QC): 3 Lying to Sitting/Side of Bed(Q: 3 Sit to Stand (QC): 3 Chair/Upc-ub-Lrbli Xfer(QC): 3 Patient has to roll several times to each side for cleaning and changing brief, supine to sit, continue dressing, stand and transfer to , propel WC to therapy gym SBA, practice transfers to the right side and supine <-> sit several times, patient informs PT that he has to use the restroom again for a BM, WC back to room, transfer to commode while OT undresses patient on the way, has BM, stand for cleaning and getting brief back on, transfer to WC, WC propel back to therapy gym, practice stand pivot transfer x4 to each side, WC propel back to room and patient will continue to work with OT for a bit for ADL's Weight Bearing Full Weight Bearing Full Weight Bearing Wheelchair Training Does the Pt Use a Wheelchair?: Yes Wheel 50 ft with 2 turns (QC): 4 Wheel 150 ft (QC): 4 Type of Wheelchair: Manual 150'x3 Treatments PT worked on bed mobility, transfers, WC mobility, OT worked on toileting and dressing and cleaning, assist with UE positioning and safety during activity. Assessment Current Status: Fair Progress slowly improving progress with transfers but still needs min assist PT Short Term Goals Short Term Goals Time Frame: Apr 18, 2020 Roll Left & Right: 3 Sit to lyin Lying to sitting on side of be: 3 Sit to stand: 3 Chair/nlr-wf-zoobw transfer: 3 PT Halfway Goals Reaming Press Operator Goals PT Halfway Goals Time Frame: May 02, 2020 Roll Left & Right (QC): 3 (Zoya) Sit to Lying (QC): 3 (Zoya) Lying-Sitting on Side/Bed(QC): 3 (Zoya) Sit to Stand (QC): 3 (Zoya) Chair/Ucy-dy-Vucma Xfer(QC): 3 (Zoya) Toilet Transfer (QC): 3 (Zoya) Car Transfer (QC): 3 (Zoya) Does the Patient Walk: No and Walking Goal NOT indicated Walk 10 feet (QC): 88 Walk 50ft with 2 Turns (QC): 88 Walk 150 ft (QC): 88 Walking 10ft on Uneven Surface: 88 1 Step (curb) (QC): 88 4 Steps (QC): 88 12 Steps (QC): 88 Picking up an Object (QC): 88 Wheel 50 feet with 2 turns (QC: 4 Wheel 150 feet: 4 PT Plan Problem List Problem List: Activity Tolerance, Functional Strength, Safety, Balance, Gait, Transfer, Bed Mobility, ROM Treatment/Plan Treatment Plan: Continue Plan of Care Treatment Plan: Bed Mobility, Education, Functional Activity [place], Functional Strength, Group Therapy, Gait, Safety, Therapeutic Exercise, Transfers Treatment Duration: May 01, 2020 Frequency: At least 5 of 7 days/Wk (IRF) Estimated Hrs Per Day: 1.5 hours per day Patient and/or Family Agrees t: Yes Safety Risks/Education Patient Education: Transfer Techniques, Correct Positioning, W/C Management, Safety Issues Teaching Recipient: Patient Teaching Methods: Demonstration, Discussion Response to Teaching: Reinforcement Needed Time/GCodes Time In: 0800 Time Out: 0900 Total Billed Treatment Time: 60 Total Billed Treatment 1 visit FA 60' co-treated with OT for 60' DARRYL BARTLETT PT Apr 23, 2020 09:00
[2020-04-23 09:26] VITALS: BP 94/66
[2020-04-23] MEDS: ASPIRIN 81 MG CHEW (CHILDREN'S ASA) PO SCH (09:29)
[2020-04-23] MEDS: SPIRONOLACTONE 25 MG (ALDACTONE) TAB PO SCH (09:29)
[2020-04-23] MEDS: GABAPENTIN 400 MG (NEURONTIN) CAP PO SCH ×2 (09:29→21:23)
[2020-04-23] MEDS: APIXABAN 5 MG (ELIQUIS) TABLET PO SCH ×2 (09:29→21:23)
[2020-04-23] MEDS: FUROSEMIDE 20 MG (LASIX) TAB PO SCH (09:29)
[2020-04-23] MEDS: SENNA W/DOCUSATE (SENOKOT S) TABLET PO SCH ×2 (09:30→19:42)
[2020-04-23] MEDS: polyethylene glycoL POWDER 17 GM (MIRALAX) PACK PO SCH ×2 (09:30→19:42)
[2020-04-23] MEDS: BISOPROLOL 5 MG TAB (ZEBETA) PO SCH (09:30)
[2020-04-23] MEDS: LOSARTAN 50 MG (COZAAR) TAB PO SCH (09:30)
[2020-04-23] MEDS: DICLOFENAC 1% GEL 100 GM (VOLTAREN) TUBE TOP SCH ×4 (09:30→21:23)
[2020-04-23] MEDS: DOCUSATE SODIUM 100 MG (COLACE) CAP PO SCH ×2 (09:31→19:41)
--- NOTE | 2020-04-23 11:30 | Speech Therapy Daily Note ---
Speech Daily Progress Note Subjective Date Seen by Provider: Apr 23, 2020 Time Seen by Provider: 00:30 Patient was resting in his bed watching television, Objective Patient was given trials of thin liquids at small sips via cup and small sips via straw. Patient demo slight cough following the first sip but was able to clear. No cough noted with subsequent sips. Assessment Assessment Current Status: Good Progress, Fair Progress Treatment Plan Continue Plan of Care Speech Short Term Goals Short Term Goals Short Term Goals 1) The patient will complete OME for improved speech production at each session with 80% or greater accuracy. 2) The patient will complete word finding tasks with 80% or greater accuracy. 3) The patient will complete expressive language tasks 80% or greater accuracy. 4) The patient will tolerate least restrictive diet level without s/s of aspiration at 80% or greater accuracy. 5) The patient will utilize compensatory strategies as trained 80% or greater accuracy. Speech Furniture Polisher Goals Furniture Polisher Goals Patient will improve cognitive-communication abilities for completion of daily needs with minimal assist. Patient will maintain adequate nutrition/hydration via safe effective swallow function. Speech-Plan Patient/Family Goals Patient/Family Goals: Patient will be going to another facility upon discharge. Treatment Plan Speech Therapy Treatment Plan: Continue Plan of Care Patient is wanting to get off of the thickened liquids. Treatment Duration: Apr 26, 2020 Frequency: 4 times per week (Patient will receive skilled ST 4-5x per week) Estimated Hrs Per Day: .5 hour per day Rehab Potential: Guarded Barriers to Learning: Patient's CVA, expressive aphasia Pt/Family Agrees to Plan: Yes Safety Risks/Education Teaching Recipient: Patient Teaching Methods: Demonstration, Discussion Response to Teaching: Verbalize Understanding, Return Demonstration Education Topics Provided: Safety of oral intake, speech exercises Time Speech Therapy Time In: 11:00 Speech Therapy Time Out: 11:30 Total Billed Time: 30 Billed Treatment Time 1, SLDECLAN, DYST FIDEL Hooper Apr 23, 2020 11:30
--- NOTE | 2020-04-23 13:25 | Physical Therapy Daily Note ---
PT Daily Note-Current Subjective Patient in bed pre tx, agrees to PT, has no complaints of pain. Patient's sister is here and will be educated on patient function, will be co-treating with OT due to poor patient mobility, strength, endurance, sitting and standing balance, the need to coordinate UE and LE during activity. Appearance Patient in recliner post tx with nurse call, phone, tray, all needs met, chair alarm on, family in the room. Mental Status Patient Orientation: Person, Unable to Assess, Non-Verbal/Aphasic Transfers SCALE: Activities may be completed with or without assistive devices. 6-Prqrwebixu-dtwxuif completes the activity by him/herself with no assistance from a helper. 5-Set-up or Clean-up Assistance-helper sets up or cleans up; patient completes activity. [place] assists only prior to or following the activity. 4-Supervision or Touching Assistance-helper provides verbal cues and/or touching/steadying and/or contact guard assistance as patient completes activity. Assistance may be provided throughout the activity or intermittently. 3-Partial/Moderate Assistance-helper does LESS THAN HALF the effort. [place] li fts, holds or supports trunk or limbs, but provides less than half the effort. 2-Substantial/Maximal Assistance-helper does MORE THAN HALF the effort. [place] lifts or holds trunk or limbs and provides more than half the effort. 9-Mcfmlfluh-dmcmol does ALL the effort. Patient does none of the effort to complete the activity. Or, the assistance of 2 or more helpers is required for the patient to complete the activity. If activity was not attempted, code reason: 7-Patient Refused. 9-Not Applicable-not attempted and the patient did not perform the activity before the current illness, exacerbation or injury. 10-Not Attempted due to Environmental Limitations-(lack of equipment, weather restraints, etc.). 88-Not Attempted due to Medical Conditions or Safety Concerns. Roll Left & Right (QC): 3 Lying to Sitting/Side of Bed(Q: 3 Sit to Stand (QC): 3 Chair/Pxp-hp-Yuzaa Xfer(QC): 3 Toilet Transfer (QC): 3 Family member educated on bed mobility, supine <-> sit, sit <-> stand, stand pivot transfer to each side, WC mobility and WC safety, and toilet transfer. Family was educated with observed techniques with patient and verbal directions and instructions. Weight Bearing Full Weight Bearing Full Weight Bearing Treatments PT performed bed mobility and transfers, WC mobility, OT assisted with mobility and instructed in UE positioning and safety. Assessment Current Status: Fair Progress improving stand pivot transfers PT Short Term Goals Short Term Goals Time Frame: Apr 18, 2020 Roll Left & Right: 3 Sit to lyin Lying to sitting on side of be: 3 Sit to stand: 3 Chair/pxx-mk-xgbis transfer: 3 PT Historiographer Goals Historiographer Goals PT Jail Goals Time Frame: May 02, 2020 Roll Left & Right (QC): 3 (Zoya) Sit to Lying (QC): 3 (Zoya) Lying-Sitting on Side/Bed(QC): 3 (Zoya) Sit to Stand (QC): 3 (Zoya) Chair/Eck-ms-Mzpml Xfer(QC): 3 (Zoya) Toilet Transfer (QC): 3 (Zoya) Car Transfer (QC): 3 (Zoya) Does the Patient Walk: No and Walking Goal NOT indicated Walk 10 feet (QC): 88 Walk 50ft with 2 Turns (QC): 88 Walk 150 ft (QC): 88 Walking 10ft on Uneven Surface: 88 1 Step (curb) (QC): 88 4 Steps (QC): 88 12 Steps (QC): 88 Picking up an Object (QC): 88 Wheel 50 feet with 2 turns (QC: 4 Wheel 150 feet: 4 PT Plan Problem List Problem List: Activity Tolerance, Functional Strength, Safety, Balance, Gait, Transfer, Bed Mobility, ROM Treatment/Plan Treatment Plan: Continue Plan of Care Treatment Plan: Bed Mobility, Education, Functional Activity [place], Functional Strength, Group Therapy, Gait, Safety, Therapeutic Exercise, Transfers Treatment Duration: May 01, 2020 Frequency: At least 5 of 7 days/Wk (IRF) Estimated Hrs Per Day: 1.5 hours per day Patient and/or Family Agrees t: Yes Safety Risks/Education Patient Education: Transfer Techniques, Correct Positioning, W/C Management, Safety Issues Teaching Recipient: Patient, Family Teaching Methods: Demonstration, Discussion Response to Teaching: Reinforcement Needed Time/GCodes Time In: 1300 Time Out: 1320 Total Billed Treatment Time: 20 Total Billed Treatment 1 visit FA 20' DARRYL BARTLETT PT Apr 23, 2020 13:25
--- NOTE | 2020-04-23 13:46 | Occupational Ther Daily Note ---
OT Current Status-Daily Note Subjective Pt agrees to tx. Pt agrees to OT/ PT co-treat. Pt denies pain this am. [id number]: Co-treat with OT focusing on ADLs, UE movement, functional balance and problem solving. PT addresses LE movement, LB strength, transfers, and w/c mob. [id number]: Family training completed with sister, Anabela, and pt. OT/ PT co- treat at this time as well to address family education/ concerns. ADL-Treatment Therapy Code Descriptions/Definitions Functional [place] Measure: 0=Not Assessed/NA 4=Minimal Assistance 1=Total Assistance 5=Supervision or Setup 2=Maximal Assistance 6=Modified [place] 3=Moderate Assistance 7=Complete IndependenceSCALE: Activities may be completed with or without assistive devices. 4-Xqfpfxcwzd-lvybnue completes the activity by him/herself with no assistance from a helper. 5-Set-up or Clean-up Assistance-helper sets up or cleans up; patient completes activity. [place] assists only prior to or following the activity. 4-Supervision or Touching Assistance-helper provides verbal cues and/or touching/steadying and/or contact guard assistance as patient completes acti vity. Assistance may be provided throughout the activity or intermittently. 3-Partial/Moderate Assistance-helper does LESS THAN HALF the effort. [place] lifts, holds or supports trunk or limbs, but provides less than half the effort. 2-Substantial/Maximal Assistance-helper does MORE THAN HALF the effort. [place] lifts or holds trunk or limbs and provides more than half the effort. 5-Wzdheaoji-upgfcn does ALL the effort. Patient does none of the effort to complete the activity. Or, the assistance of 2 or more helpers is required for the patient to complete the activity. If activity was not attempted, code reason: 7-Patient Refused. 9-Not Applicable-not attempted and the patient did not perform the activity before the current illness, exacerbation or injury. 10-Not Attempted due to Environmental Limitations-(lack of equipment, weather restraints, etc.). 88-Not Attempted due to Medical Conditions or Safety Concerns. Oral Hygiene (QC): 6 (IND at sink in w/c. ) Lower Body Dressing (QC): 3 (min A in bed for RLE threading, pt able to ocmplete all other tasks with RLE supported during bridging. ) Toileting Hygiene (QC): 1 Toilet Transfer (QC): 1 Other Treatment Pt in bed, bed mob with min A. Pt SPT to w/c and propels self to gym. Pt and OT/ PT work on fx transfers this am, completing problem solving and step by step sequencing for practice/ safety. Pt SPT with CGA toward L/ strong side and SPT to R/ weak side with min A. Pt completes this multiple times. States need for bathroom. Pt SPT to commode, TD for toilet hygiene in stance. Loose stool, pt's nurse is notified of pt's request of no more laxatives. Pt returns to chair, propels to gym with SBA to complete additional transfers. Pt returns to room, completes oral care in w/c at sink level and requests back to bed. SPT with min A to R side. All needs met, call light in reach. OT/ PT co-treat with sister/ family training. Pt's sister educated on pt's tx sessions and abilities. Educated on most successful position for UE/ LE dressing/ toileting/ etc. Pt's family states pt will probably not go home with family as they both work full-time, though it will "be hard." Pt's sister educated on abilities of pt and increased balance/ transfer abilities/ w/c mobility, etc. SPT demonstrated to w/c, bed, and toilet. Pt sits in chair end of session with all questions met, call light in reach, sister left in room with pt. Education OT Patient Education: Correct positioning, Exercise program, Home exercise program, Modified ADL techniques, Progress toward Goal/Update tx plan, Purpose of tx/functional activities, Safety issues, Transfer techniques Teaching Recipient: Patient Teaching Methods: Demonstration, Discussion Response to Teaching: Verbalize Understanding, Return Demonstration, Reinforcement Needed OT Short Term Goals Short Term Goals Eatin Oral hygiene: 5 Toileting hygiene: 2 Shower/bathe self: 2 Upper body dressin Lower body dressin Putting on/taking off footwear: 2 OT Artist Color Separation Goals Artist Color Separation Goals Time Frame: Apr 24, 2020 Eating (QC): 6 Oral Hygiene (QC): 6 Toileting Hygiene (QC): 3 Shower/Bathe Self (QC): 3 Upper Body Dressing (QC): 6 Lower Body Dressing (QC): 3 On/Off Footwear (QC): 6 Additional Goals: 1-Demonstrate ADL Tasks, 2-Verbalize Understanding, 3- ImproveStrength/[place] 1=Demonstrate adherence to instructed precautions during ADL tasks. 2=Patient will verbalize/demonstrate understanding of assistive devices/modifications for ADL. 3=Patient will improve strength/tolerance for activity to enable patient to perform ADL's. OT Education/Plan Problem List/Assessment Assessment: Decreased Activ Tolerance, Decreased UE Strength, Dependent Transfers, Impaired Bed Mobility, Impaired Cognition, Impaired Coordination, Impaired Funct Balance, Impaired I ADL's, Impaired Self-Care Skills, Restricted Funct UE ROM, Visual-Perceptual Deficit Discharge Recommendations Plan/Recommendations: Continue POC Therapy Discharge Recommendati: 24 Hour Supervision, Assisted Living, Post Acute OT Treatment Plan/Plan of Care Treatment,Training & Education: Yes Patient would benefit from OT for education, treatment and training to promote independence in ADL's, mobility, safety and/or upper extremity function for ADL's. Plan of Care: ADL Retraining, Caregiver Training, Concurrent Therapy, Functional Mobility, Group Exercise/Act as Ind, Orthotic Fitting/Training, UE Funct Exercise/Act, UE Neuromus Re-Ed/Coord, Visual/Perceptual Retrain, W/C Management Training Treatment Duration: Apr 24, 2020 Frequency: At least 5 of 7 days/Wk (IRF) Estimated Hrs Per Day: 1.5 hours per day Agreement: Yes Rehab Potential: Guarded Time/GCodes Start Time: 08:00 (1300) Stop Time: 09:00 (1320) Total Time Billed (hr/min): 80 Billed Treatment Time 1, ADL (30), FA (30) 1, FA (20) Total: 80 FATIMAH KERNS OTR Apr 23, 2020 13:46
--- NOTE | 2020-04-23 14:26 | Progress Note - Cardiology ---
Cardiology SOAP Progress Note Subjective: In bed. Denies c/o CP, palpitations, dyspnea. States he feels well. Objective: I&O/Vital Signs 04/24/20 06:35 Temp 36.0 Pulse 80 Resp 14 B/P (MAP) 107/67 (80) Pulse Ox 99 O2 Delivery Room Air 04/24/20 00:00 Intake Total 1020 ml Balance 1020 ml Weight (Pounds): 258 Weight (Ounces): 15.0 Weight (Calculated Kilograms): 117.427491 Constitutional: appears stated age, AAO x 3; No apparent distress; well- developed, well-nourished Respiratory: chest is bilaterally symmetric, lungs clear to auscultation Cardiovascular: irregularly irregular, S1 and S2 Gastrointestional: soft, round, audible bowel sounds Extremities: No clubbing; no lower extremity edema bilateral Neurologic/Psychiatric: other (RUE and RLE hemiparesis; mild expressive aphasia) Skin: normal color, warm/dry; No rash, No rash on exposed areas, No ulcerations on exposed areas Results/Procedures: Labs A/P: Assessment: Acute CVA, status post mechanical aspiration done at . Still has residual deficits, right sided weakness. Aggressive inpatient rehabilitation. Hx of previous CVA in 2009 and 2014 Cardiomyopathy, EF 10-15% per 2D Echo done at on 03/30/2020. Underwent [facility] [employer] Bi-V ICD and AV node ablation on 04/02/[address] Witt at . Maintained on ROMULO inhibitor, beta evan. Atrial fibrillation with rapid ventricular rate, EKG shows V paced rhythm. OAC with Eliquis Recent AV node ablation on Apr 02, 2020 at [facility] Hypertension, currently hypotensive. I will decrease losartan, continue to monitor. Plan: Continued hypotension despite medication reduction Further reduce regimen as tolerated We have reviewed Dr. Gibson's progress notes RAUL BENJAMIN Apr 23, 2020 14:26
--- NOTE | 2020-04-23 15:53 | NUR ---
CM/SS DISCHARGE PLANNING Patient's sister/POA Anabela Hollis came today for education/training and mortgage or loan underwriter facilitated discharge planning discussion thereafter. Updated patient and Anabela on findings with [facility] and critical access hospital alf care facilities. Both agreed to a referral to [facility] since they agreed to consider the patient uninsured/Medicaid pending. Await their confirmation of acceptance or denial. Patient could receive therapy here through [facility] [place] [facility] care[facility] Alternate option is non-skilled placement in superintendent container terminal care at [facility]. They can accept Medicaid pending on LTC but not assisted living. Followed up with [facility] and [facility] will not allow her to take Medicaid pending residents. Will advocate for [facility] due to patient's age and level of functioning.
--- NOTE | 2020-04-23 16:27 | Progress Note - Cardiology ---
Cardiology SOAP Progress Note Subjective: No cp or palp or syncope or shortness of breath at rest Gen weakness and malaise present Objective: I&O/Vital Signs 04/23/20 04/23/20 04/23/20 06:37 09:00 09:26 Temp 36.2 Pulse 80 80 Resp 14 B/P (MAP) 99/63 (75) 94/66 (75) Pulse Ox 98 97 O2 Delivery Room Air Room Air 04/23/20 00:00 Intake Total 1200 ml Balance 1200 ml Weight (Pounds): 258 Weight (Ounces): 15.0 Weight (Calculated Kilograms): 117.145666 Constitutional: appears stated age, AAO x 3; No apparent distress; well- developed, well-nourished Respiratory: chest is bilaterally symmetric, lungs clear to auscultation Cardiovascular: irregularly irregular, S1 and S2 Gastrointestional: soft, round, audible bowel sounds Extremities: No clubbing; no lower extremity edema bilateral Neurologic/Psychiatric: other (RUE and RLE hemiparesis; mild expressive aphasia) Skin: normal color, warm/dry; No rash, No rash on exposed areas, No ulcerations on exposed areas A/P: Assessment: Acute CVA, status post mechanical aspiration done at . Still has residual d eficits, right sided weakness. Aggressive inpatient rehabilitation. Hx of previous CVA in 2009 and 2014 Cardiomyopathy, EF 10-15% per 2D Echo done at on 03/30/2020. Underwent [facility] Bi-V ICD and AV node ablation on 04/02/[address] Witt at . Maintained on ROMULO inhibitor, beta evan. Atrial fibrillation with rapid ventricular rate, EKG shows V paced rhythm. OAC with Eliquis Recent AV node ablation on Apr 02, 2020 at [facility] Hypertension, currently hypotensive. I will decrease losartan, continue to monitor. Plan: Continued hypotension despite medication reduction Further reduce regimen as tolerated We have reviewed Dr. Gibson's progress notes ARASH SHANKAR MD FACP [facility] Apr 23, 2020 16:27
[2020-04-23 18:23] VITALS: BP 107/67
--- NOTE | 2020-04-24 05:56 | PM&R Progress Note ---
Subjective HPI/CC On Admission Date Seen by Provider: Apr 24, 2020 Time Seen by Provider: 08:30 Subjective/Events-last exam 04/24/20: Pt doing pretty well Bowels move after suppository every 48 hrs Decreasing pain medication Decreasing Cozaar due to hypotension per cardiology 04/23/20: BM after suppository every 48hrs Gabapentin BID seems to be working pretty well Using Oxycodone when Gabapentin is not enough No falls 04/22/20: No major issues Expressive aphasia continues Bowels moved yesterday after suppository given every 48 hours 04/21/20: Suppository today and BM Incontinent of B/B Pain improved Does not need to increase Gabapentin 04/20/20: BM yesterday Pain improved Sleepy today Doing better Incontinence : Improve right sided nerve pain Xanax and pain pill helps him BM after suppository Q 48 hours Incontinent of B/B 04/18/20: BM 04/17/20 Eliquis causes blurry vision per sister so will inquire with Dr Gibson regarding Xarelto Incontinent 04/17/20: Bowels not moving so will initiate Dulcolax suppository every 48hrs after laxatives given and he is agreeable for that plan Denies any significant new issues Pain is getting much better with the Gabapentin twice daily and Oxycodone 04/16/20: Right-sided pain still so increased Gabapentin to 300 Mg BID Xanax will help too Oxycodone also helps 04/15/20: Gabapentin maintained Oxycodone maintained Confusion noted? 04/14/20: Monitoring BP Pain right side still present and will increase Gabapentin 04/13/20: Right arm and right leg pain and issue Oxycodone not really helping Nerve pain so will give Gabapentin 04/12/20: Severe pain on right side Oxycodone ordered Participating in therapies well No other pain Pt doing pretty well Expressive aphasia is an issue WBC is 12.4 CMP normal Consulting cardiology Overall doing very well Conferred with RN Checked meds and labs Reviewed therapy notes Review of Systems General: Fatigue Neurological: Weakness, Incoordination Objective Exam Vital Signs Vital Signs Date Time Temp Pulse Resp B/P (MAP) Pulse Ox O2 Delivery O2 Flow Rate FiO2 04/24/20 20:15 Room Air 04/24/20 17:25 36.4 80 18 104/65 (78) 98 Capillary Refill : Less Than 3 Seconds General Appearance: No Apparent Distress, WD/WN, Chronically ill HEENT: PERRL/EOMI, Normal ENT Inspection, Pharynx Normal Neck: Full Range of Motion, Normal Inspection, Non Tender, Supple, Carotid Bruit Respiratory: Chest Non Tender, Lungs Clear, Normal Breath Sounds, No Accessory Muscle Use, No Respiratory Distress Cardiovascular: Regular Rate, Rhythm, No Edema, No Gallop, No JVD, No Murmur, Normal Peripheral Pulses Gastrointestinal: Normal Bowel Sounds, No Organomegaly, No Pulsatile Mass, Non Tender, Soft Back: Normal Inspection, No CVA Tenderness, No Vertebral Tenderness Extremity: Normal Capillary Refill, Normal Inspection, Normal Range of Motion, Non Tender, No Calf Tenderness, No Pedal Edema Neurologic/Psychiatric: Alert, Normal Mood/Affect, Abnormal Gait, Aphasia, Depressed Affect, Disoriented, Motor Weakness (right sided flaccidity) Skin: Normal Color, Warm/Dry Lymphatic: No Adenopathy Results/Procedures Lab Patient resulted labs reviewed. FIM Transfers Therapy Code Descriptions/Definitions Functional [place] Measure: 0=Not Assessed/NA 4=Minimal Assistance 1=Total Assistance 5=Supervision or Setup 2=Maximal Assistance 6=Modified [place] 3=Moderate Assistance 7=Complete IndependenceSCALE: Activities may be completed with or without assistive devices. 5-Ysfbcfknfk-txjkqcm completes the activity by him/herself with no assistance from a helper. 5-Set-up or Clean-up Assistance-helper sets up or cleans up; patient completes activity. [place] assists only prior to or following the activity. 4-Supervision or Touching Assistance-helper provides verbal cues and/or touching/steadying and/or contact guard assistance as patient completes activity. Assistance may be provided throughout the activity or intermittently. 3-Partial/Moderate Assistance-helper does LESS THAN HALF the effort. [place] lifts, holds or supports trunk or limbs, but provides less than half the effort. 2-Substantial/Maximal Assistance-helper does MORE THAN HALF the effort. [place] lifts or holds trunk or limbs and provides more than half the effort. 5-Ahoarlbye-iwzsor does ALL the effort. Patient does none of the effort to complete the activity. Or, the assistance of 2 or more helpers is required for the patient to complete the activity. If activity was not attempted, code reason: 7-Patient Refused. 9-Not Applicable-not attempted and the patient did not perform the activity before the current illness, exacerbation or injury. 10-Not Attempted due to Environmental Limitations-(lack of equipment, weather restraints, etc.). 88-Not Attempted due to Medical Conditions or Safety Concerns. Roll Left to Right (QC): 3 Sit to Lying (QC): 3 Sit to Stand (QC): 3 Chair/Wvy-ex-Omrxb Xfer(QC): 3 Car Transfer (QC): 2 Gait Training Distance: 3 x 8 ft Walk 10 feet (QC): 2 Walk 50 ft with 2 Turns(QC): 88 Walk 150 ft (QC): 88 Walking 10ft/uneven surface-QC: 88 Gait Persons Needed: 2 Gait Assistive Device: Parallel Bars Wheelchair Training Does the Pt Use a Wheelchair?: Yes Wheel 50 ft with 2 turns (QC): 4 Wheel 150 ft (QC): 4 Type of Wheelchair: Manual Stair Training 1 Step (curb) (QC): 88 4 Steps (QC): 88 12 Steps (QC): 88 Balance Picking up an Object (QC): 88 ADL-Treatment Eating (QC): 4 (SUP during ice chip) Oral Hygiene (QC): 6 (IND at sink in w/c. ) Bathing Location: L Arm, R Arm, L Upper Leg, R Upper Leg, L Lower Leg (including foot), R Lower Leg (including foot), Chest, Abdomen, Buttocks, Perineal Area Shower/Bathe Self (QC): 4 (CGA during reaching tasks, SBA all other tasks on sc. Pt completes all areas on sc, including BUE and bottom) Upper Body Dressing (QC): 3 (min A with R UE (stabilizing RUE in position and adjustment on R side)) Lower Body Dressing (QC): 3 (min A in bed for RLE threading, pt able to ocmplete all other tasks with RLE supported during bridging. 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 Defib in place Cardiomyopathy HTN Plan: Monitor dysphagia Cardiology consultation IRF protocol 04/11/20: Monitor BP Appreciate Cardiology 04/12/20: Monitor closely Pain management 04/13/20: Gabapentin Oxycodone 04/14/20: Increase Gabapentin Oxycodone BM regimen to increase today may need supp 04/15/20: BM++ Monitor pain of right side 04/16/20: Increase dose of Neurontin Maintain aggressive rehab 04/17/20: BM regimen to include supp Q48 hrs Monitor pain Monitor BP 04/18/20: Increased Gabpentin some more today BM regimen 04/19/20: Manage incontinence Right arm and right leg pain management 04/20/20: Maintain pain control Incontinence management BM regimen 04/21/20: Suppository [id number] Monitor closely Pain control 04/22/20: Continue BM regimen Monitor right sided pain 04/23/20: BM regimen PT OT Incontinence care 04/24/20: Monitor BP Fall risk BM regimen (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
[2020-04-24 06:35] VITALS: BP 107/67
--- NOTE | 2020-04-24 09:22 | Physical Therapy Daily Note ---
PT Daily Note-Current Subjective Pt alert in bed this am. Pt agrees to tx session. OT/ PT co-treat with OT addressing ADLs, problem solving, safety and UE movement while PT addresses fx transfers, fx stance and balance and LE movement. Pain Location: Right Location Body Site: Arm Pain Description: Ache Comment: Pt reports but doesn't rate. Mental Status Patient Orientation: Person, Place, Situation Transfers SCALE: Activities may be completed with or without assistive devices. 9-Ispxefxnlg-hmfopmv completes the activity by him/herself with no assistance from a helper. 5-Set-up or Clean-up Assistance-helper sets up or cleans up; patient completes activity. [place] assists only prior to or following the activity. 4-Supervision or Touching Assistance-helper provides verbal cues and/or to uching/steadying and/or contact guard assistance as patient completes activity. Assistance may be provided throughout the activity or intermittently. 3-Partial/Moderate Assistance-helper does LESS THAN HALF the effort. [place] lifts, holds or supports trunk or limbs, but provides less than half the effort. 2-Substantial/Maximal Assistance-helper does MORE THAN HALF the effort. [place] lifts or holds trunk or limbs and provides more than half the effort. 4-Seekztzoc-aqukyk does ALL the effort. Patient does none of the effort to complete the activity. Or, the assistance of 2 or more helpers is required for the patient to complete the activity. If activity was not attempted, code reason: 7-Patient Refused. 9-Not Applicable-not attempted and the patient did not perform the activity before the current illness, exacerbation or injury. 10-Not Attempted due to Environmental Limitations-(lack of equipment, weather restraints, etc.). 88-Not Attempted due to Medical Conditions or Safety Concerns. Sit to Lying (QC): 4 Lying to Sitting/Side of Bed(Q: 4 Sit to Stand (QC): 4 Weight Bearing Full Weight Bearing Full Weight Bearing Wheelchair Training Does the Pt Use a Wheelchair?: Yes Wheel 50 ft with 2 turns (QC): 5 Wheel 150 ft (QC): 5 Type of Wheelchair: Manual Exercises Supine Ex: Hip abd/add Supine Reps: 10 Treatments Pt in bed. Supine to sit with min A. Transfers to w/c with mod A. Pt propels self to shower room, completing ADLs as outlined above. Pt demonstrates increased IND with showering this date. Pt propels to gym, sits EOM to complete UE reaching/ sitting balance/ abdominal strengthening tasks for 20 minutes. Pt demonstrates decreased balance during LUE midline crossing to R side, resulting in need for CGA. Pt lays on mat, manual manipulation/ muscle tension massage utilized on RUE due to pt's c/o "constant pain," and rubbing of arm. Pt returns to room, sits in recliner with SPT with Zoya, all needs met, call light in reach, chair alarm on, pt's LEs elevated. Assessment Current Status: Good Progress Pt is able to sit for several minutes at a time but needing to adjust or correct posture. Pt is limited by weakness & pain in R UE. PT Short Term Goals Short Term Goals Time Frame: Apr 18, 2020 Roll Left & Right: 3 Sit to lyin Lying to sitting on side of be: 3 Sit to stand: 3 Chair/dzr-ew-htjuq transfer: 3 PT Airplane Mechanic Apprentice Goals Airplane Mechanic Apprentice Goals PT Airplane Mechanic Apprentice Goals Time Frame: May 02, 2020 Roll Left & Right (QC): 3 (Zoya) Sit to Lying (QC): 3 (Zoya) Lying-Sitting on Side/Bed(QC): 3 (Zoya) Sit to Stand (QC): 3 (Zoya) Chair/Dvi-wb-Snygv Xfer(QC): 3 (Zoya) Toilet Transfer (QC): 3 (Zoya) Car Transfer (QC): 3 (Zoya) Does the Patient Walk: No and Walking Goal NOT indicated Walk 10 feet (QC): 88 Walk 50ft with 2 Turns (QC): 88 Walk 150 ft (QC): 88 Walking 10ft on Uneven Surface: 88 1 Step (curb) (QC): 88 4 Steps (QC): 88 12 Steps (QC): 88 Picking up an Object (QC): 88 Wheel 50 feet with 2 turns (QC: 4 Wheel 150 feet: 4 PT Plan Problem List Problem List: Activity Tolerance, Functional Strength Treatment/Plan Treatment Plan: Continue Plan of Care Treatment Plan: Bed Mobility, Education, Functional Activity [place], Functional Strength, Group Therapy, Gait, Safety, Therapeutic Exercise, Transfers Treatment Duration: May 01, 2020 Frequency: At least 5 of 7 days/Wk (IRF) Estimated Hrs Per Day: 1.5 hours per day Patient and/or Family Agrees t: Yes Safety Risks/Education Patient Education: Transfer Techniques, Correct Positioning, Safety Issues Teaching Recipient: Patient Teaching Methods: Discussion Response to Teaching: Verbalize Understanding Time/GCodes Time In: 800 Time Out: 915 Total Billed Treatment Time: 75 Total Billed Treatment 1, H (15m) & FA x4 (60m) CATALINO CAMPBELL PTA Apr 24, 2020 09:22
--- NOTE | 2020-04-24 09:26 | Occupational Ther Daily Note ---
OT Current Status-Daily Note Subjective Pt alert in bed this am. Pt agrees to tx session. OT/ PT co-treat with OT addressing ADLs, problem solving, safety and UE movmeent while PT addresses fx transfers, fx stance and balance and LE movement. ADL-Treatment Therapy Code Descriptions/Definitions Functional [place] Measure: 0=Not Assessed/NA 4=Minimal Assistance 1=Total Assistance 5=Supervision or Setup 2=Maximal Assistance 6=Modified [place] 3=Moderate Assistance 7=Complete IndependenceSCALE: Activities may be completed with or without assistive devices. 0-Ehehuzgboi-qevszoc completes the activity by him/herself with no assistance from a helper. 5-Set-up or Clean-up Assistance-helper sets up or cleans up; patient completes activity. [place] assists only prior to or following the activity. 4-Supervision or Touching Assistance-helper provides verbal cues and/or touching/steadying and/or contact guard assistance as patient completes activity. Assistance may be provided throughout the activity or intermittently. 3-Partial/Moderate Assistance-helper does LESS THAN HALF the effort. [place] lifts, holds or supports trunk or limbs, but provides less than half the effort. 2-Substantial/Maximal Assistance-helper does MORE THAN HALF the effort. [place] lifts or holds trunk or limbs and provides more than half the effort. 9-Qriexehsz-zndlzg does ALL the effort. Patient does none of the effort to complete the activity. Or, the assistance of 2 or more helpers is required for the patient to complete the activity. If activity was not attempted, code reason: 7-Patient Refused. 9-Not Applicable-not attempted and the patient did not perform the activity before the current illness, exacerbation or injury. 10-Not Attempted due to Environmental Limitations-(lack of equipment, weather restraints, etc.). 88-Not Attempted due to Medical Conditions or Safety Concerns. Bathing Location: L Arm, R Arm, L Upper Leg, R Upper Leg, L Lower Leg (including foot), R Lower Leg (including foot), Chest, Abdomen, Buttocks, Perineal Area Shower/Bathe Self (QC): 4 (SBA all tasks and s/u for soap items. Pt able to reach all areas with SBA on sc. ) Upper Body Dressing (QC): 3 (min A R side assist) Lower Body Dressing (QC): 1 (TD due to need of 2 people in stance. Pt able to thread LLE and pull up over knees. OT completes donning over hips while PT addresses fx stance/ balance/ blocking of knee.) On/Off Footwear: 2 (max A - pt is educated on use of extended fingers for sock donning with L hand only. Pt able to ocmplete with [place] assist. RLE completed with Max A.) Toileting Hygiene (QC): 4 (SBA in sc ) Other Treatment Pt in bed. Supine to sit with min A. Transfers to w/c with mod A. Pt propels self to shower room, completing ADLs as outlined above. Pt demonstrates increased IND with showering this date. Pt propels to gym, sits EOM to complete UE reaching/ sitting balance/ abdominal strengthening tasks for 20 minutes. Pt demonstrates decreased balance during LUE midline crossing to R side, resulting in need for CGA. Pt lays on mat, manual manipulation/ muscle tension massage utilized on RUE due to pt's c/o "constant pain," and rubbing of arm. Pt returns to room, sits in recliner with SPT with Zoya, all needs met, call light in reach, chair alarm on, pt's LEs elevated. Education OT Patient Education: Correct positioning, Exercise program, Home exercise program, Modified ADL techniques, Progress toward Goal/Update tx plan, Purpose of tx/functional activities, Safety issues, Transfer techniques Teaching Recipient: Patient Teaching Methods: Demonstration, Discussion Response to Teaching: Verbalize Understanding, Return Demonstration, Reinforcement Needed OT Short Term Goals Short Term Goals Eatin Oral hygiene: 5 Toileting hygiene: 2 Shower/bathe self: 2 Upper body dressin Lower body dressin Putting on/taking off footwear: 2 OT Correction Goals Education Courses Sales Representative Goals Time Frame: Apr 24, 2020 Eating (QC): 6 Oral Hygiene (QC): 6 Toileting Hygiene (QC): 3 Shower/Bathe Self (QC): 3 Upper Body Dressing (QC): 6 Lower Body Dressing (QC): 3 On/Off Footwear (QC): 6 Additional Goals: 1-Demonstrate ADL Tasks, 2-Verbalize Understanding, 3-ImproveStrength/[place] 1=Demonstrate adherence to instructed precautions during ADL tasks. 2=Patient will verbalize/demonstrate understanding of assistive devices/modifications for ADL. 3=Patient will improve strength/tolerance for activity to enable patient to perform ADL's. OT Education/Plan Problem List/Assessment Assessment: Decreased Activ Tolerance, Decreased UE Strength, Dependent Transfers, Impaired Bed Mobility, Impaired Coordination, Impaired Funct Balance, Impaired I ADL's, Impaired Self-Care Skills, Restricted Funct UE ROM, Visual- Perceptual Deficit Discharge Recommendations Plan/Recommendations: Continue POC Therapy Discharge Recommendati: 24 Hour Supervision, Assisted Living, Post Acute OT Treatment Plan/Plan of Care Treatment,Training & Education: Yes Patient would benefit from OT for education, treatment and training to promote independence in ADL's, mobility, safety and/or upper extremity function for ADL's. Plan of Care: ADL Retraining, Caregiver Training, Concurrent Therapy, Functional Mobility, Group Exercise/Act as Ind, Orthotic Fitting/Training, UE Funct Exercise/Act, UE Neuromus Re-Ed/Coord, Visual/Perceptual Retrain, W/C Management Training Treatment Duration: Apr 24, 2020 Frequency: At least 5 of 7 days/Wk (IRF) Estimated Hrs Per Day: 1.5 hours per day Agreement: Yes Rehab Potential: Guarded Time/GCodes Start Time: 08:00 Stop Time: 09:15 Total Time Billed (hr/min): 75 Billed Treatment Time 1, ADL 3 (45), NM (20), MAN (10)= 75 OT/ PT co-treat with OT addressing ADLs, problem solving, safety and UE movmeent while PT addresses fx transfers, fx stance and balance and LE movement. FATIMAH KERNS OTR Apr 24, 2020 09:26
[2020-04-24] MEDS: SPIRONOLACTONE 25 MG (ALDACTONE) TAB PO SCH (09:42)
[2020-04-24] MEDS: APIXABAN 5 MG (ELIQUIS) TABLET PO SCH ×2 (09:42→20:10)
[2020-04-24] MEDS: GABAPENTIN 400 MG (NEURONTIN) CAP PO SCH ×2 (09:42→20:10)
[2020-04-24] MEDS: DOCUSATE SODIUM 100 MG (COLACE) CAP PO SCH ×2 (09:42→20:01)
[2020-04-24] MEDS: SENNA W/DOCUSATE (SENOKOT S) TABLET PO SCH ×2 (09:42→20:10)
[2020-04-24] MEDS: FUROSEMIDE 20 MG (LASIX) TAB PO SCH (09:42)
[2020-04-24] MEDS: BISOPROLOL 5 MG TAB (ZEBETA) PO SCH (09:42)
[2020-04-24] MEDS: ASPIRIN 81 MG CHEW (CHILDREN'S ASA) PO SCH (09:42)
[2020-04-24] MEDS: LOSARTAN 25 MG (COZAAR) TAB PO SCH (09:42)
[2020-04-24] MEDS: DICLOFENAC 1% GEL 100 GM (VOLTAREN) TUBE TOP SCH ×4 (09:44→20:11)
[2020-04-24] MEDS: polyethylene glycoL POWDER 17 GM (MIRALAX) PACK PO SCH ×2 (10:17→20:01)
--- NOTE | 2020-04-24 10:29 | Speech Therapy Daily Note ---
Speech Daily Progress Note Subjective Date Seen by Provider: Apr 24, 2020 Time Seen by Provider: 00:30 Patient was resting in his chair following his PT and OT session. Objective Patient completed trials of thin liquids following medication presentations in pudding without cough/choke. Patient demo ability to take whole pill with sips of water. Assessment Assessment Current Status: Good Progress Treatment Plan Continue Plan of Care Speech Short Term Goals Short Term Goals Short Term Goals 1) The patient will complete OME for improved speech production at each session with 80% or greater accuracy. 2) The patient will complete word finding tasks with 80% or greater accuracy. 3) The patient will complete expressive language tasks 80% or greater accuracy. 4) The patient will tolerate least restrictive diet level without s/s of aspiration at 80% or greater accuracy. 5) The patient will utilize compensatory strategies as trained 80% or greater accuracy. Speech Operator Vacuum Goals Operator Vacuum Goals Patient will improve cognitive-communication abilities for completion of daily needs with minimal assist. Patient will maintain adequate nutrition/hydration via safe effective swallow function. Speech-Plan Patient/Family Goals Patient/Family Goals: Patient plans on returning to his home where he lives with his sister and son in law. Treatment Plan Speech Therapy Treatment Plan: Continue Plan of Care Treatment Duration: Apr 26, 2020 Frequency: 4 times per week (Patient will receive skilled ST 4-5x per week) Estimated Hrs Per Day: .5 hour per day Rehab Potential: Guarded Barriers to Learning: Patient's medical history, recent CVA Pt/Family Agrees to Plan: Yes Safety Risks/Education Teaching Recipient: Patient Teaching Methods: Demonstration, Discussion Response to Teaching: Verbalize Understanding, Return Demonstration Education Topics Provided: Continued safety with oral intake, MBS discussion Time Speech Therapy Time In: 09:30 Speech Therapy Time Out: 10:00 Total Billed Time: 30 Billed Treatment Time 1, SHAYAN SLFIDEL Rodriguez Apr 24, 2020 10:29
--- NOTE | 2020-04-24 12:22 | Progress Note - Cardiology ---
Cardiology SOAP Progress Note Subjective: Lying in bed. No new c/o Objective: I&O/Vital Signs 04/25/20 06:00 Temp 36.2 Pulse 80 Resp 14 B/P (MAP) 102/69 (80) Pulse Ox 98 O2 Delivery Room Air 04/25/20 00:00 Intake Total 840 ml Balance 840 ml Weight (Pounds): 258 Weight (Ounces): 15.0 Weight (Calculated Kilograms): 117.495790 Constitutional: appears stated age, AAO x 3; No apparent distress; well- developed, well-nourished Respiratory: chest is bilaterally symmetric, lungs clear to auscultation Cardiovascular: irregularly irregular, S1 and S2 Gastrointestional: soft, round, audible bowel sounds Extremities: No clubbing; no lower extremity edema bilateral Neurologic/Psychiatric: other (RUE and RLE hemiparesis; mild expressive aphasia) Skin: normal color, warm/dry; No rash, No rash on exposed areas, No ulcerations on exposed areas A/P: Assessment: Acute CVA, status post mechanical aspiration done at . Still has residual deficits, right sided weakness. Aggressive inpatient rehabilitation. Hx of previous CVA in 2009 and 2014 Cardiomyopathy, EF 10-15% per 2D Echo done at on 03/30/2020. Underwent [facility]-V ICD and AV node ablation on 04/02/[address] Witt at . Maintained on ROMULO inhibitor, beta evan. Atrial fibrillation with rapid ventricular rate, EKG shows V paced rhythm. OAC with Eliquis Recent AV node ablation on Apr 02, 2020 at [facility] Hypertension, currently hypotensive. I will decrease losartan, continue to monitor. Plan: BP improved following reduction in antihypertensive dosing Continue cardiac regimen RAUL BENJAMIN Apr 24, 2020 12:22
--- NOTE | 2020-04-24 15:14 | Progress Note - Cardiology ---
Cardiology SOAP Progress Note Subjective: No cp or palp or syncope No shortness of breath at rest Gen malaise No n/v/d Objective: I&O/Vital Signs 04/24/20 04/24/20 06:35 09:00 Temp 36.0 Pulse 80 Resp 14 B/P (MAP) 107/67 (80) Pulse Ox 99 O2 Delivery Room Air Room Air 04/24/20 00:00 Intake Total 1020 ml Balance 1020 ml Weight (Pounds): 258 Weight (Ounces): 15.0 Weight (Calculated Kilograms): 117.539897 Constitutional: appears stated age, AAO x 3; No apparent distress; well- developed, well-nourished Respiratory: chest is bilaterally symmetric, lungs clear to auscultation Cardiovascular: irregularly irregular, S1 and S2 Gastrointestional: soft, round, audible bowel sounds Extremities: No clubbing; no lower extremity edema bilateral Neurologic/Psychiatric: other (RUE and RLE hemiparesis; mild expressive aphasia) Skin: normal color, warm/dry; No rash, No rash on exposed areas, No ulcerations on exposed areas A/P: Assessment: Acute CVA, status post mechanical aspiration done at . Still has residual deficits, right sided weakness. Aggressive inpatient rehabilitation. Hx of previous CVA in 2009 and 2014 Cardiomyopathy, EF 10-15% per 2D Echo done at on 03/30/2020. Underwent [facility] [facility]-V ICD and AV node ablation on 04/02/[address] Witt at . Maintained on ROMULO inhibitor, beta evan. Atrial fibrillation with rapid ventricular rate, EKG shows V paced rhythm. OAC with Eliquis Recent AV node ablation on Apr 02, 2020 at [facility] Hypertension, currently hypotensive. I will decrease losartan, continue to monitor. Plan: BP improved following reduction in antihypertensive dosing Continue cardiac regimen ARASH SHANKAR MD FACP [facility] Apr 24, 2020 15:14
[2020-04-24 17:25] VITALS: BP 104/65
[2020-04-25 06:00] VITALS: BP 102/69
[2020-04-25] MEDS: BISACODYL 10 MG SUPP (DULCOLAX) PR SCH (06:52)
[2020-04-25] MEDS: FUROSEMIDE 20 MG (LASIX) TAB PO SCH (08:19)
[2020-04-25] MEDS: BISOPROLOL 5 MG TAB (ZEBETA) PO SCH (08:19)
[2020-04-25] MEDS: polyethylene glycoL POWDER 17 GM (MIRALAX) PACK PO SCH ×2 (08:19→20:12)
[2020-04-25] MEDS: GABAPENTIN 400 MG (NEURONTIN) CAP PO SCH ×2 (08:19→20:15)
[2020-04-25] MEDS: SPIRONOLACTONE 25 MG (ALDACTONE) TAB PO SCH (08:19)
[2020-04-25] MEDS: ASPIRIN 81 MG CHEW (CHILDREN'S ASA) PO SCH (08:19)
[2020-04-25] MEDS: DOCUSATE SODIUM 100 MG (COLACE) CAP PO SCH ×2 (08:19→20:07)
[2020-04-25] MEDS: APIXABAN 5 MG (ELIQUIS) TABLET PO SCH ×2 (08:19→20:16)
[2020-04-25] MEDS: LOSARTAN 25 MG (COZAAR) TAB PO SCH (08:19)
[2020-04-25] MEDS: SENNA W/DOCUSATE (SENOKOT S) TABLET PO SCH ×2 (08:19→20:15)
[2020-04-25] MEDS: DICLOFENAC 1% GEL 100 GM (VOLTAREN) TUBE TOP SCH ×4 (08:20→20:16)
--- NOTE | 2020-04-25 09:19 | Occupational Ther Daily Note ---
OT Current Status-Daily Note Subjective Pt alert. Agrees to OT/ PT co-treat. Pt states, "Oh boy," motioning to his groin. Pt needs rest room and has BM on commode with SUP for 30 minutes during treatment. Pt's schedule to be altered to shower when enema/ stool softeners are given. Pt agrees to shower post-BM today. OT/ PT co-treat with OT addressing UE movement, ADLs, problem solving/ attention while PT addresses fx transfers, w/c mob, LE movement/ strength. OT/ PT co-treat: [id number] OT individual tx: ADL-Treatment Therapy Code Descriptions/Definitions Functional [place] Measure: 0=Not Assessed/NA 4=Minimal Assistance 1=Total Assistance 5=Supervision or Setup 2=Maximal Assistance 6=Modified [place] 3=Moderate Assistance 7=Complete IndependenceSCALE: Activities may be completed with or without assistive devices. 7-Tqqfktpnni-ssrozda completes the activity by him/herself with no assistance from a helper. 5-Set-up or Clean-up Assistance-helper sets up or cleans up; patient completes activity. [place] assists only prior to or following the activity. 4-Supervision or Touching Assistance-helper provides verbal cues and/or touching/steadying and/or contact guard assistance as patient completes activity. Assistance may be provided throughout the activity or intermittently. 3-Partial/Moderate Assistance-helper does LESS THAN HALF the effort. [place] lifts, holds or supports trunk or limbs, but provides less than half the effort. 2-Substantial/Maximal Assistance-helper does MORE THAN HALF the effort. [place] lifts or holds trunk or limbs and provides more than half the effort. 1-Sqtqzuyue-khnxlh does ALL the effort. Patient does none of the effort to complete the activity. Or, the assistance of 2 or more helpers is required for the patient to complete the activity. If activity was not attempted, code reason: 7-Patient Refused. 9-Not Applicable-not attempted and the patient did not perform the activity before the current illness, exacerbation or injury. 10-Not Attempted due to Environmental Limitations-(lack of equipment, weather restraints, etc.). 88-Not Attempted due to Medical Conditions or Safety Concerns. Eating (QC): 6 (eating in bed this am with IND with modified diet.) Oral Hygiene (QC): 4 (Pt requires cues for opening new/ larger toothpaste. Pt is instructed to support with BLE adducted, sqeeze with this motion, and scrape from toothbrush. Pt completes with increased cues.) Bathing Location: L Arm, R Arm, L Upper Leg, R Upper Leg, Chest, Abdomen, Buttocks, Perineal Area Shower/Bathe Self (QC): 4 (SBA all tasks. ) Upper Body Dressing (QC): 3 (mod A this date) Lower Body Dressing (QC): 1 (TD due to need of 2 people) On/Off Footwear: 2 (socks donning max A.) Toileting Hygiene (QC): 1 (TD due to need of 2 people. Pt completes bottom cleaning during shower with SBA/ s/u) Toilet Transfer (QC): 3 (mod A EOB to commode. Pt sits on commode with fair balance. ) Other Treatment Pt in bed eating upon entry. Needs to have BM, brief already soiled. Pt bed mob with mod A this date due to BM on sheets, commode transfer/ toileting/ ADLs and showering as outlined. Pt returns to room in w/c, completing oral care with OT with adaptive technique. Pt SPT to recliner with mod A, able to sequence all tasks and completes with safety. Pt left in recliner with all needs met, call light in reach, chair alarm on, LEs elevated. Education OT Patient Education: Correct positioning, Modified ADL techniques, Progress toward Goal/Update tx plan, Purpose of tx/functional activities, Safety issues, Transfer techniques Teaching Recipient: Patient Teaching Methods: Demonstration, Discussion Response to Teaching: Verbalize Understanding, Return Demonstration OT Short Term Goals Short Term Goals Eatin Oral hygiene: 5 Toileting hygiene: 2 Shower/bathe self: 2 Upper body dressin Lower body dressin Putting on/taking off footwear: 2 OT Group Home Goals Inspector Fibrous Wallboard Goals Time Frame: Apr 24, 2020 Eating (QC): 6 Oral Hygiene (QC): 6 Toileting Hygiene (QC): 3 Shower/Bathe Self (QC): 3 Upper Body Dressing (QC): 6 Lower Body Dressing (QC): 3 On/Off Footwear (QC): 6 Additional Goals: 1-Demonstrate ADL Tasks, 2-Verbalize Understanding, 3- ImproveStrength/[place] 1=Demonstrate adherence to instructed precautions during ADL tasks. 2=Patient will verbalize/demonstrate understanding of assistive devices/modifications for ADL. 3=Patient will improve strength/tolerance for activity to enable patient to perform ADL's. OT Education/Plan Problem List/Assessment Assessment: Decreased Activ Tolerance, Decreased UE Strength, Dependent Transfers, Impaired Bed Mobility, Impaired Funct Balance, Impaired I ADL's, Impaired Self-Care Skills, Restricted Funct UE ROM, Visual-Perceptual Deficit Discharge Recommendations Plan/Recommendations: Continue POC Therapy Discharge Recommendati: 24 Hour Supervision, Post Acute OT Treatment Plan/Plan of Care Treatment,Training & Education: Yes Patient would benefit from OT for education, treatment and training to promote independence in ADL's, mobility, safety and/or upper extremity function for ADL's. Plan of Care: ADL Retraining, Caregiver Training, Concurrent Therapy, Functional Mobility, Group Exercise/Act as Ind, Orthotic Fitting/Training, UE Funct Exercise/Act, UE Neuromus Re-Ed/Coord, Visual/Perceptual Retrain, W/C Management Training Treatment Duration: Apr 24, 2020 Frequency: At least 5 of 7 days/Wk (IRF) Estimated Hrs Per Day: 1.5 hours per day Agreement: Yes Rehab Potential: Guarded Time/GCodes Start Time: 08:00 Stop Time: 09:15 Total Time Billed (hr/min): 75 Billed Treatment Time OT/ PT co-treat with OT addressing UE movement, ADLs, problem solving/ attention while PT addresses fx transfers, w/c mob, LE movement/ strength. OT/ PT co-treat: [id number] OT individual tx: [id number] 1, ADL 5 (75) FATIMAH KERNS OTR Apr 25, 2020 09:19
--- NOTE | 2020-04-25 09:59 | Physical Therapy Daily Note ---
PT Daily Note-Current Subjective Patient in bed pre tx, agrees to PT, has no complaints of pain but patient has had a BM in his brief and indicates that he still needs to go. Will be co- treating with OT due to poor patient mobility, strength, endurance, poor sitting and standing balance, right hemiparesis, the need to coordinate UE and LE during activity. Appearance Patient in WC post tx with OT to work on some ADL's Mental Status Patient Orientation: Person, Unable to Assess, Non-Verbal/Aphasic Transfers SCALE: Activities may be completed with or without assistive devices. 7-Xjdkmtrcql-mhhqrdm completes the activity by him/herself with no assistance from a helper. 5-Set-up or Clean-up Assistance-helper sets up or cleans up; patient completes activity. [place] assists only prior to or following the activity. 4-Supervision or Touching Assistance-helper provides verbal cues and/or estephanie nanci/steadying and/or contact guard assistance as patient completes activity. Assistance may be provided throughout the activity or intermittently. 3-Partial/Moderate Assistance-helper does LESS THAN HALF the effort. [place] lifts, holds or supports trunk or limbs, but provides less than half the effort. 2-Substantial/Maximal Assistance-helper does MORE THAN HALF the effort. [place] lifts or holds trunk or limbs and provides more than half the effort. 4-Eaujgjltt-xdvyba does ALL the effort. Patient does none of the effort to complete the activity. Or, the assistance of 2 or more helpers is required for the patient to complete the activity. If activity was not attempted, code reason: 7-Patient Refused. 9-Not Applicable-not attempted and the patient did not perform the activity before the current illness, exacerbation or injury. 10-Not Attempted due to Environmental Limitations-(lack of equipment, weather restraints, etc.). 88-Not Attempted due to Medical Conditions or Safety Concerns. Roll Left & Right (QC): 3 Lying to Sitting/Side of Bed(Q: 3 Sit to Stand (QC): 3 Chair/Vgc-jl-Fdhti Xfer(QC): 3 Patient supine to sit with min assist, stand pivot transfer with min assist, getting brief off on the way and transfer to bedside commode, has a BM, stand and clean and patient decides that he has to go more, sit back on commode, patient has more of a BM, stand and clean again and transfer to , propel to the shower room, transfer to shower chair, shower, stand for drying off and start dressing, transfer to WC, continue dressing, propel back to room. Weight Bearing Full Weight Bearing Full Weight Bearing Wheelchair Training Does the Pt Use a Wheelchair?: Yes Wheel 50 ft with 2 turns (QC): 4 Wheel 150 ft (QC): 4 Type of Wheelchair: Manual Treatments PT worked on bed mobility and transfers, standing for cleaning and dressing, WC mobility, standing and sitting balance during bathing, OT worked on toileting, bathing, UE positioning and safety. Assessment Current Status: Poor Progress No change in mobility. Patient has a BM just about every time he is seen for PT and it takes up most of the time he could be using to work on transfers, balance, etc. PT Short Term Goals Short Term Goals Time Frame: Apr 18, 2020 Roll Left & Right: 3 Sit to lyin Lying to sitting on side of be: 3 Sit to stand: 3 Chair/sjs-cs-gpmhc transfer: 3 PT Portable Router Operator Goals Usp Goals PT Usp Goals Time Frame: May 02, 2020 Roll Left & Right (QC): 3 (Zoya) Sit to Lying (QC): 3 (Zoya) Lying-Sitting on Side/Bed(QC): 3 (Zoya) Sit to Stand (QC): 3 (Zoya) Chair/Iyg-cq-Kxdlt Xfer(QC): 3 (Zoya) Toilet Transfer (QC): 3 (Zoya) Car Transfer (QC): 3 (Zoya) Does the Patient Walk: No and Walking Goal NOT indicated Walk 10 feet (QC): 88 Walk 50ft with 2 Turns (QC): 88 Walk 150 ft (QC): 88 Walking 10ft on Uneven Surface: 88 1 Step (curb) (QC): 88 4 Steps (QC): 88 12 Steps (QC): 88 Picking up an Object (QC): 88 Wheel 50 feet with 2 turns (QC: 4 Wheel 150 feet: 4 PT Plan Problem List Problem List: Activity Tolerance, Functional Strength, Safety, Balance, Gait, Transfer, Bed Mobility, ROM Treatment/Plan Treatment Plan: Continue Plan of Care Treatment Plan: Bed Mobility, Education, Functional Activity [place], Functional Strength, Group Therapy, Gait, Safety, Therapeutic Exercise, Transfers Treatment Duration: May 01, 2020 Frequency: At least 5 of 7 days/Wk (IRF) Estimated Hrs Per Day: 1.5 hours per day Patient and/or Family Agrees t: Yes Safety Risks/Education Patient Education: Transfer Techniques, Correct Positioning, W/C Management, Safety Issues Teaching Recipient: Patient Teaching Methods: Demonstration, Discussion Response to Teaching: Reinforcement Needed Time/GCodes Time In: 0800 Time Out: 0900 Total Billed Treatment Time: 60 Total Billed Treatment 1 visit FA 60' co-treated with OT for 60' DARRYL BARTLETT PT Apr 25, 2020 09:59
--- NOTE | 2020-04-25 11:35 | Progress Note - Cardiology ---
Cardiology SOAP Progress Note Subjective: Lying in bed No c/o CP, palpitations or dyspnea Objective: I&O/Vital Signs 04/25/20 04/26/20 20:30 05:47 Temp 36.0 Pulse 80 Resp 14 B/P (MAP) 89/60 (70) Pulse Ox 98 O2 Delivery Room Air Room Air 04/26/20 00:00 Intake Total 1200 ml Balance 1200 ml Weight (Pounds): 258 Weight (Ounces): 15.0 Weight (Calculated Kilograms): 117.740669 Constitutional: appears stated age, AAO x 3; No apparent distress; well-develop ed, well-nourished Respiratory: chest is bilaterally symmetric, lungs clear to auscultation Cardiovascular: irregularly irregular, S1 and S2 Gastrointestional: soft, round, audible bowel sounds Extremities: No clubbing; no lower extremity edema bilateral Neurologic/Psychiatric: other (RUE and RLE hemiparesis; mild expressive aphasia) Skin: normal color, warm/dry; No rash, No rash on exposed areas, No ulcerations on exposed areas Results/Procedures: Labs Laboratory Tests 04/26/20 07:15: White Blood Count 7.5, Red Blood Count 5.51, Hemoglobin 16.4, Hematocrit 50, Mean Corpuscular Volume 91, Mean Corpuscular Hemoglobin 30, Mean Corpuscular Hemoglobin Concent 33, Red Cell Distribution Width 13.3, Platelet Count 190, Mean Platelet Volume 11.5, Sodium Level 139, Potassium Level 4.0, Chloride Level 105, Carbon Dioxide Level 24, Anion Gap 10, Blood Urea Nitrogen 15, Creatinine 0.93, Estimat Glomerular Filtration Rate > 60, BUN/Creatinine Ratio 16, Glucose Level 110H, Lactic Acid Level 1.33, Calcium Level 9.7, Corrected Calcium 9.9, Total Bilirubin 0.6, Aspartate Amino Transf (AST/SGOT) 58H, Alanine Aminotransferase (ALT/SGPT) 101H, Alkaline Phosphatase 142H, Total Protein 7.5, Albumin 3.8 A/P: Assessment: Acute CVA, status post mechanical aspiration done at . Still has residual deficits, right sided weakness. Aggressive inpatient rehabilitation. Hx of previous CVA in 2009 and 2014 Cardiomyopathy, EF 10-15% per 2D Echo done at on 03/30/[address]. Underwent [facility]-V ICD and AV node ablation on 04/02/[address] Witt at . Maintained on ROMULO inhibitor, beta evan. Atrial fibrillation with rapid ventricular rate, EKG shows V paced rhythm. OAC with Eliquis Recent AV node ablation on Apr 02, 2020 at [facility] Hypertension, currently hypotensive. I will decrease losartan, continue to monitor. Plan: BP improved following reduction in antihypertensive dosing Continue cardiac regimen RAUL BENJAMIN Apr 25, 2020 11:34
--- NOTE | 2020-04-25 12:51 | PM&R Progress Note ---
Subjective HPI/CC On Admission Date Seen by Provider: Apr 25, 2020 Time Seen by Provider: 05:10 Subjective/Events-last exam 04/25/20: No major issues Pain controlled Participation with PT 04/24/20: Pt doing pretty well Bowels move after suppository every 48 hrs Decreasing pain medication Decreasing Cozaar due to hypotension per cardiology 04/23/20: BM after suppository every 48hrs Gabapentin BID seems to be working pretty well Using Oxycodone when Gabapentin is not enough No falls 04/22/20: No major issues Expressive aphasia continues Bowels moved yesterday after suppository given every 48 hours 04/21/20: Suppository today and BM Incontinent of B/B Pain improved Does not need to increase Gabapentin 04/20/20: BM yesterday Pain improved Sleepy today Doing better Incontinence : Improve right sided nerve pain Xanax and pain pill helps him BM after suppository Q 48 hours Incontinent of B/B 04/18/20: BM 04/17/20 Eliquis causes blurry vision per sister so will inquire with Dr Gibson regarding Xarelto Incontinent 04/17/20: Bowels not moving so will initiate Dulcolax suppository every 48hrs after laxatives given and he is agreeable for that plan Denies any significant new issues Pain is getting much better with the Gabapentin twice daily and Oxycodone 04/16/20: Right-sided pain still so increased Gabapentin to 300 Mg BID Xanax will help too Oxycodone also helps 04/15/20: Gabapentin maintained Oxycodone maintained Confusion noted? 04/14/20: Monitoring BP Pain right side still present and will increase Gabapentin 04/13/20: Right arm and right leg pain and issue Oxycodone not really helping Nerve pain so will give Gabapentin 04/12/20: Severe pain on right side Oxycodone ordered Participating in therapies well No other pain Pt doing pretty well Expressive aphasia is an issue WBC is 12.4 CMP normal Consulting cardiology Overall doing very well Conferred with RN Checked meds and labs Reviewed therapy notes Review of Systems Neurological: Weakness, Incoordination Objective Exam Vital Signs Vital Signs Date Time Temp Pulse Resp B/P (MAP) Pulse Ox O2 Delivery O2 Flow Rate FiO2 04/25/20 17:12 36.4 81 18 104/67 (79) 99 Room Air Capillary Refill : Less Than 3 Seconds General Appearance: No Apparent Distress, WD/WN, Chronically ill HEENT: PERRL/EOMI, Normal ENT Inspection, Pharynx Normal Neck: Full Range of Motion, Normal Inspection, Non Tender, Supple, Carotid Bru it Respiratory: Chest Non Tender, Lungs Clear, Normal Breath Sounds, No Accessory Muscle Use, No Respiratory Distress Cardiovascular: Regular Rate, Rhythm, No Edema, No Gallop, No JVD, No Murmur, Normal Peripheral Pulses Gastrointestinal: Normal Bowel Sounds, No Organomegaly, No Pulsatile Mass, Non Tender, Soft Back: Normal Inspection, No CVA Tenderness, No Vertebral Tenderness Extremity: Normal Capillary Refill, Normal Inspection, Normal Range of Motion, Non Tender, No Calf Tenderness, No Pedal Edema Neurologic/Psychiatric: Alert, Normal Mood/Affect, Abnormal Gait, Aphasia, Depressed Affect, Disoriented, Motor Weakness (right sided flaccidity) Skin: Normal Color, Warm/Dry Lymphatic: No Adenopathy Results/Procedures Lab Patient resulted labs reviewed. FIM Transfers Therapy Code Descriptions/Definitions Functional [place] Measure: 0=Not Assessed/NA 4=Minimal Assistance 1=Total Assistance 5=Supervision or Setup 2=Maximal Assistance 6=Modified [place] 3=Moderate Assistance 7=Complete IndependenceSCALE: Activities may be completed with or without assistive devices. 7-Adyegtifag-ktmfkqo completes the activity by him/herself with no assistance from a helper. 5-Set-up or Clean-up Assistance-helper sets up or cleans up; patient completes activity. [place] assists only prior to or following the activity. 4-Supervision or Touching Assistance-helper provides verbal cues and/or touching/steadying and/or contact guard assistance as patient completes activity. Assistance may be provided throughout the activity or intermittently. 3-Partial/Moderate Assistance-helper does LESS THAN HALF the effort. [place] lifts, holds or supports trunk or limbs, but provides less than half the effort. 2-Substantial/Maximal Assistance-helper does MORE THAN HALF the effort. [place] lifts or holds trunk or limbs and provides more than half the effort. 4-Yyejhxgwl-vjxihs does ALL the effort. Patient does none of the effort to complete the activity. Or, the assistance of 2 or more helpers is required for the patient to complete the activity. If activity was not attempted, code reason: 7-Patient Refused. 9-Not Applicable-not attempted and the patient did not perform the activity before the current illness, exacerbation or injury. 10-Not Attempted due to Environmental Limitations-(lack of equipment, weather restraints, etc.). 88-Not Attempted due to Medical Conditions or Safety Concerns. Roll Left to Right (QC): 3 Sit to Lying (QC): 4 Sit to Stand (QC): 3 Chair/Swf-qb-Umfce Xfer(QC): 3 Car Transfer (QC): 2 Gait Training Distance: 3 x 8 ft Walk 10 feet (QC): 2 Walk 50 ft with 2 Turns(QC): 88 Walk 150 ft (QC): 88 Walking 10ft/uneven surface-QC: 88 Gait Persons Needed: 2 Gait Assistive Device: Parallel Bars Wheelchair Training Does the Pt Use a Wheelchair?: Yes Wheel 50 ft with 2 turns (QC): 4 Wheel 150 ft (QC): 4 Type of Wheelchair: Manual Stair Training 1 Step (curb) (QC): 88 4 Steps (QC): 88 12 Steps (QC): 88 Balance Picking up an Object (QC): 88 ADL-Treatment Eating (QC): 6 (eating in bed this am with IND with modified diet.) Oral Hygiene (QC): 4 (Pt requires cues for opening new/ larger toothpaste. Pt is instructed to support with BLE adducted, sqeeze with this motion, and scrape from toothbrush. Pt completes with increased cues.) Bathing Location: L Arm, R Arm, L Upper Leg, R Upper Leg, Chest, Abdomen, Buttocks, Perineal Area Shower/Bathe Self (QC): 4 (SBA all tasks. ) Upper Body Dressing (QC): 3 (mod A this date) Lower Body Dressing (QC): 1 (TD due to need of 2 people) On/Off Footwear (QC): 2 (socks donning max A.) Toileting Hygiene (QC): 1 (TD due to need of 2 people. Pt completes bottom cleaning during shower with SBA/ s/u) Toilet Transfer (QC): 3 (mod A EOB to commode. Pt sits on commode with fair balance. 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 Defib in place Cardiomyopathy HTN Plan: Monitor dysphagia Cardiology consultation IRF protocol 04/11/20: Monitor BP Appreciate Cardiology 04/12/20: Monitor closely Pain management 04/13/20: Gabapentin Oxycodone 04/14/20: Increase Gabapentin Oxycodone BM regimen to increase today may need supp 04/15/20: BM++ Monitor pain of right side 04/16/20: Increase dose of Neurontin Maintain aggressive rehab 04/17/20: BM regimen to include supp Q48 hrs Monitor pain Monitor BP 04/18/20: Increased Gabpentin some more today BM regimen 04/19/20: Manage incontinence Right arm and right leg pain management 04/20/20: Maintain pain control Incontinence management BM regimen 04/21/20: Suppository [id number] Monitor closely Pain control 04/22/20: Continue BM regimen Monitor right sided pain 04/23/20: BM regimen PT OT Incontinence care 04/24/20: Monitor BP Fall risk BM regimen 04/25/20: No med changes Pain controlled (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
--- NOTE | 2020-04-25 13:37 | Speech Therapy Daily Note ---
Speech Daily Progress Note Subjective Date Seen by Provider: Apr 25, 2020 Time Seen by Provider: 00:30 Patient was sitting upright in his recliner, alert and ready to work. Objective Patient was given trials of thin liquids with a straw without cough or choke noted with intake at 90%. Patient is ready to eat "better". Assessment Assessment Current Status: Good Progress Treatment Plan Continue Plan of Care Speech Short Term Goals Short Term Goals Short Term Goals 1) The patient will complete OME for improved speech production at each session with 80% or greater accuracy. 2) The patient will complete word finding tasks with 80% or greater accuracy. 3) The patient will complete expressive language tasks 80% or greater accuracy. 4) The patient will tolerate least restrictive diet level without s/s of aspiration at 80% or greater accuracy. 5) The patient will utilize compensatory strategies as trained 80% or greater accuracy. Speech Senior Data Architect Goals Senior Data Architect Goals Patient will improve cognitive-communication abilities for completion of daily needs with minimal assist. Patient will maintain adequate nutrition/hydration via safe effective swallow function. Speech-Plan Patient/Family Goals Patient/Family Goals: Patient will be going to a local facility with returning to his sister's house at a later date when he doesn't require fulltime care. Treatment Plan Speech Therapy Treatment Plan: Continue Plan of Care MBS to be scheduled Treatment Duration: Apr 29, 2020 Frequency: 4 times per week (Patient will receive skilled ST 4-5x per week) Estimated Hrs Per Day: .5 hour per day Rehab Potential: Guarded Barriers to Learning: Patient's 3 CVA's Pt/Family Agrees to Plan: Yes Safety Risks/Education Teaching Recipient: Patient Teaching Methods: Demonstration, Discussion Response to Teaching: Verbalize Understanding, Return Demonstration Education Topics Provided: Safety within his room as well as safety with all oral intake Time Speech Therapy Time In: 09:30 Speech Therapy Time Out: 10:00 Total Billed Time: 30 Billed Treatment Time 1, SLDECLAN, FIDEL Najera Apr 25, 2020 13:37
--- NOTE | 2020-04-25 14:02 | Physical Therapy Daily Note ---
PT Daily Note-Current Subjective Patient in bed pre tx, agrees to PT, has no complaints of pain. Appearance Patient in bed post tx with nurse call, phone, tray, all needs met. Mental Status Patient Orientation: Person, Unable to Assess, Non-Verbal/Aphasic Transfers SCALE: Activities may be completed with or without assistive devices. 3-Udupsaohyg-ylhxgyg completes the activity by him/herself with no assistance from a helper. 5-Set-up or Clean-up Assistance-helper sets up or cleans up; patient completes activity. [place] assists only prior to or following the activity. 4-Supervision or Touching Assistance-helper provides verbal cues and/or touching/steadying and/or contact guard assistance as patient completes activity. Assistance may be provided throughout the activity or intermittently. 3-Partial/Moderate Assistance-helper does LESS THAN HALF the effort. [place] lifts, holds or supports trunk or limbs, but provides less than half the effort. 2-Substantial/Maximal Assistance-helper does MORE THAN HALF the effort. [place] lifts or holds trunk or limbs and provides more than half the effort. 9-Yjiurfvbj-dsecda does ALL the effort. Patient does none of the effort to complete the activity. Or, the assistance of 2 or more helpers is required for the patient to complete the activity. If activity was not attempted, code reason: 7-Patient Refused. 9-Not Applicable-not attempted and the patient did not perform the activity before the current illness, exacerbation or injury. 10-Not Attempted due to Environmental Limitations-(lack of equipment, weather restraints, etc.). 88-Not Attempted due to Medical Conditions or Safety Concerns. Weight Bearing Full Weight Bearing Full Weight Bearing Exercises Supine Ex: Heel Slides, Short Arc Quads, Straight leg raise, Hip abd/add Supine Reps: 20 (AAROM, actually it is mostly PROM but patient is able to assist a little with hip abd/add and SLR) RLE PROM/stretching in all planes Treatments ROM Assessment Current Status: Poor Progress not much change in strength in RLE PT Short Term Goals Short Term Goals Time Frame: Apr 18, 2020 Roll Left & Right: 3 Sit to lyin Lying to sitting on side of be: 3 Sit to stand: 3 Chair/nsh-un-qbmay transfer: 3 PT Halfway Goals Halfway Goals PT School Social Worker Goals Time Frame: May 02, 2020 Roll Left & Right (QC): 3 (Zoya) Sit to Lying (QC): 3 (Zoya) Lying-Sitting on Side/Bed(QC): 3 (Zoya) Sit to Stand (QC): 3 (Zoya) Chair/Xqu-bz-Rgmwm Xfer(QC): 3 (Zoya) Toilet Transfer (QC): 3 (Zoya) Car Transfer (QC): 3 (Zoya) Does the Patient Walk: No and Walking Goal NOT indicated Walk 10 feet (QC): 88 Walk 50ft with 2 Turns (QC): 88 Walk 150 ft (QC): 88 Walking 10ft on Uneven Surface: 88 1 Step (curb) (QC): 88 4 Steps (QC): 88 12 Steps (QC): 88 Picking up an Object (QC): 88 Wheel 50 feet with 2 turns (QC: 4 Wheel 150 feet: 4 PT Plan Problem List Problem List: Activity Tolerance, Functional Strength, Safety, Balance, Gait, Transfer, Bed Mobility, ROM Treatment/Plan Treatment Plan: Continue Plan of Care Treatment Plan: Bed Mobility, Education, Functional Activity [place], Functional Strength, Group Therapy, Gait, Safety, Therapeutic Exercise, Transfers Treatment Duration: May 01, 2020 Frequency: At least 5 of 7 days/Wk (IRF) Estimated Hrs Per Day: 1.5 hours per day Patient and/or Family Agrees t: Yes Safety Risks/Education Patient Education: Correct Positioning, Safety Issues Teaching Recipient: Patient Teaching Methods: Demonstration, Discussion Response to Teaching: Reinforcement Needed Time/GCodes Time In: 1300 Time Out: 1315 Total Billed Treatment Time: 15 Total Billed Treatment 1 visit EX DARRYL JORGE PT Apr 25, 2020 14:02
--- NOTE | 2020-04-25 15:51 | NUR ---
"RD ASSESSMENT PMHx: afib; HTN; stroke; PT INTERACTION: Pt was semi-awake and pleasant during nutrition assessment. Pt states current appetite is good. Note avg PO intake 98% x4d, per chart review. Pt states no issues with n/v/c/d since last assessment. Note last BM was 04/23, and pt currently on bowel regimen of colace BID, senna BID, and miralax BID, per chart review. ABNORMAL NUTRITION-RELATED LAB VALUES LOW: HIGH: AST 61; ALT 97; Est. kcal needs: 9317-2514 kcal | 20-25 kcal/kg Est. Pro needs: 60-76 g Pro | 0.8-1.0 g Pro/kg PES STATEMENT: Given current appetite and PO intake, no nutrition diagnosis at this time (NO-1.1). INTERVENTION: Continue with current diet order of DYS2 Mechanically Altered diet, with modifier of [place]-Thick Liquids. Will continue to follow and reassess as pt needs, intake, and status change. Jose Elias Rawls, MS RD LD [phone] cell"
--- NOTE | 2020-04-25 16:03 | NUR ---
CM/SS PATIENT CARE CONFERENCE Reviewed Summary with patient and then with his sister/POA Anabela Hollis by phone. Both agree to his continued stay and care plan on ARU with reassessment next Wednesday, May 01. Both were informed that denied patient's request for residency there stating they felt he required more of a skilled level of care. Patient was notably disappointed when informed, bid writer shared this with his sister and encouraged her to support him in communications. Barriers to discharge continue to be uninsured status, Medicaid pending, Presumptive Disability pending, younger age 60, deficits and care needs as it relates to appropriate environment for care. If patient enters a community jail environment Medicaid Pending or Medicaid covered, he will not be eligible for any therapies because it only pays room and board. Therefore, patient's therapy would terminate once discharged from ARU. If he goes to [facility], they would have therapy there to at least maintain his progress. Will continue to review with options for [facility], especially for open beds and/or any confirmation of Medicaid approval. Records Officer has initiated a TBI Waiver with [facility] in [place]. Patient would not have a home environment where he could go with [employer] paid caregivers, but he could have [employer] coverage for [facility] or LTC, depending on accepting entity.
[2020-04-25 17:12] VITALS: BP 104/67
[2020-04-26 05:47] VITALS: BP 89/60
[2020-04-26 07:26] LABS: HEMOGLOBIN 16.4 g/dL (13.3-17.7); MEAN PLATELET VOLUME 11.5 fL (9.0-12.2); WHITE BLOOD COUNT 7.5 10^3/uL (4.3-11.0)
[2020-04-26 07:50] LABS: ALANINE AMINOTRANSFERASE 101 U/L (0-55); ALBUMIN 3.8 GM/DL (3.2-4.5); ALKALINE PHOSPHATASE 142 U/L (40-136); BILIRUBIN,TOTAL 0.6 MG/DL (0.1-1.0); BUN/CREATININE RATIO 16; CALCIUM 9.7 MG/DL (8.5-10.1); CARBON DIOXIDE 24 MMOL/L (21-32); CHLORIDE 105 MMOL/L (98-107); CREATININE SERUM 0.93 MG/DL (0.60-1.30); GFR ESTIMATED > 60; GLUCOSE 110 MG/DL (70-105); SODIUM 139 MMOL/L (135-145); TOTAL PROTEIN 7.5 GM/DL (6.4-8.2)
--- NOTE | 2020-04-26 08:59 | Physical Therapy Daily Note ---
PT Daily Note-Current Subjective Patient in bed pre tx, agrees to PT, has no complaints of pain. Will be co- treating with OT due to poor patient mobility, strength, endurance, sitting and standing balance, right hemiparesis, the need to coordinate UE and LE during activity. Appearance Patient in recliner post tx with nurse call, phone, tray, chair alarm on. Mental Status Patient Orientation: Person, Unable to Assess, Non-Verbal/Aphasic Transfers SCALE: Activities may be completed with or without assistive devices. 7-Mkkxvwxvri-fixsihz completes the activity by him/herself with no assistance from a helper. 5-Set-up or Clean-up Assistance-helper sets up or cleans up; patient completes activity. [place] assists only prior to or following the activity. 4-Supervision or Touching Assistance-helper provides verbal cues and/or touching/steadying and/or contact guard assistance as patient completes activity. Assistance may be provided throughout the activity or intermittently. 3-Partial/Moderate Assistance-helper does LESS THAN HALF the effort. [place] lifts, holds or supports trunk or limbs, but provides less than half the effort. 2-Substantial/Maximal Assistance-helper does MORE THAN HALF the effort. [place] lifts or holds trunk or limbs and provides more than half the effort. 5-Ddrndvvng-emkapv does ALL the effort. Patient does none of the effort to complete the activity. Or, the assistance of 2 or more helpers is required for the patient to complete the activity. If activity was not attempted, code reason: 7-Patient Refused. 9-Not Applicable-not attempted and the patient did not perform the activity before the current illness, exacerbation or injury. 10-Not Attempted due to Environmental Limitations-(lack of equipment, weather restraints, etc.). 88-Not Attempted due to Medical Conditions or Safety Concerns. Roll Left & Right (QC): 4 Lying to Sitting/Side of Bed(Q: 3 Sit to Stand (QC): 3 Chair/Wby-cr-Dilnd Xfer(QC): 3 Dressing lower in bed, already has shirt on, patient does not have to use the restroom and already has a brief on. Supine to sit min assist, stand pivot transfer with min assist to , propel to therapy gym 150' SBA. Weight Bearing Full Weight Bearing Full Weight Bearing Gait Training Distance: 20'x3 Walk 10 feet (QC): 2 Gait Assistive Device: Walker Jose WC follow, needs assist advancing his right leg and with balance and weight shifting. Uses right side knee immobilizer to prevent knee buckling. Wheelchair Training Does the Pt Use a Wheelchair?: Yes Wheel 50 ft with 2 turns (QC): 4 Wheel 150 ft (QC): 4 Type of Wheelchair: Manual 150'x2 Exercises Standing in parallel bars x3 working on balance, letting go with left hand, working on SLS on right leg. Treatments PT worked on bed mobility and transfers, ambulation, WC mobility, standing activity, positioning during dressing, OT worked on dressing, UE positioning and safety during activity. Assessment Current Status: Fair Progress slightly improved balance during ambulation PT Short Term Goals Short Term Goals Time Frame: Apr 18, 2020 Roll Left & Right: 3 Sit to lyin Lying to sitting on side of be: 3 Sit to stand: 3 Chair/pkr-vx-nzlhy transfer: 3 PT Retirement Goals Steel Fabricating Supervisor Goals PT Retirement Goals Time Frame: May 02, 2020 Roll Left & Right (QC): 3 (Zoya) Sit to Lying (QC): 3 (Zoya) Lying-Sitting on Side/Bed(QC): 3 (Zoya) Sit to Stand (QC): 3 (Zoya) Chair/Wib-cw-Ztooy Xfer(QC): 3 (Zoya) Toilet Transfer (QC): 3 (Zoya) Car Transfer (QC): 3 (Zoya) Does the Patient Walk: No and Walking Goal NOT indicated Walk 10 feet (QC): 88 Walk 50ft with 2 Turns (QC): 88 Walk 150 ft (QC): 88 Walking 10ft on Uneven Surface: 88 1 Step (curb) (QC): 88 4 Steps (QC): 88 12 Steps (QC): 88 Picking up an Object (QC): 88 Wheel 50 feet with 2 turns (QC: 4 Wheel 150 feet: 4 PT Plan Problem List Problem List: Activity Tolerance, Functional Strength, Safety, Balance, Gait, Transfer, Bed Mobility, ROM Treatment/Plan Treatment Plan: Continue Plan of Care Treatment Plan: Bed Mobility, Education, Functional Activity [place], Functional Strength, Group Therapy, Gait, Safety, Therapeutic Exercise, Transfers Treatment Duration: May 01, 2020 Frequency: At least 5 of 7 days/Wk (IRF) Estimated Hrs Per Day: 1.5 hours per day Patient and/or Family Agrees t: Yes Safety Risks/Education Patient Education: Gait Training, Transfer Techniques, Correct Positioning, W/C Management, Safety Issues Teaching Recipient: Patient Teaching Methods: Demonstration, Discussion Response to Teaching: Reinforcement Needed Time/GCodes Time In: 0800 Time Out: 0900 Total Billed Treatment Time: 60 Total Billed Treatment 1 visit FA 60' co-treated for 60' DARRYL BARTLETT PT Apr 26, 2020 08:59
--- NOTE | 2020-04-26 09:00 | Occupational Ther Daily Note ---
OT Current Status-Daily Note Subjective Pt in bed, alert. Pt denies changing briefs. Pt states pain in R side. Does not rate. Agrees to OT/ PT co-treat. OT addresses ADLs, UE movement/ strength, problem solving/ sequencing and hemianopsia/ scanning while PT addresses LE movement/ strength, balance, fx transfers, etc. ADL-Treatment Therapy Code Descriptions/Definitions Functional [place] Measure: 0=Not Assessed/NA 4=Minimal Assistance 1=Total Assistance 5=Supervision or Setup 2=Maximal Assistance 6=Modified [place] 3=Moderate Assistance 7=Complete IndependenceSCALE: Activities may be completed with or without assistive devices. 6-Vssvvnjrbt-bjuipdb completes the activity by him/herself with no assistance from a helper. 5-Set-up or Clean-up Assistance-helper sets up or cleans up; patient completes activity. [place] assists only prior to or following the activity. 4-Supervision or Touching Assistance-helper provides verbal cues and/or touching/steadying and/or contact guard assistance as patient completes activity. Assistance may be provided throughout the activity or intermittently. 3-Partial/Moderate Assistance-helper does LESS THAN HALF the effort. [place] lifts, holds or supports trunk or limbs, but provides less than half the effort. 2-Substantial/Maximal Assistance-helper does MORE THAN HALF the effort. [place] lifts or holds trunk or limbs and provides more than half the effort. 5-Tayyfpaec-hhpsjq does ALL the effort. Patient does none of the effort to complete the activity. Or, the assistance of 2 or more helpers is required for the patient to complete the activity. If activity was not attempted, code reason: 7-Patient Refused. 9-Not Applicable-not attempted and the patient did not perform the activity before the current illness, exacerbation or injury. 10-Not Attempted due to Environmental Limitations-(lack of equipment, weather restraints, etc.). 88-Not Attempted due to Medical Conditions or Safety Concerns. Lower Body Dressing (QC): 2 (max A threading BLE in bed this am. Pt able to bridge/ hike over hips with min A to R side.) On/Off Footwear: 3 (s/u and min A for R shoe donning) Toileting Hygiene (QC): 7 Other Treatment Pt completes LB dressing in bed. Pt in w/c and completes shoe donning with use of dycem for support on R side. Pt propels self to gym, sits EOM while PT addresses LE brace/ OT addresses UE sling to prep for ambulation task. Pt sit to stand from mat and completes 3 rounds of ambulation with britni walker with OT addressing R arm, balance, follows with w/c. Pt takes rest in between. Pt stands at parallel bars, completing 2 stands over 2 minutes with L knee blocked. Pt then stands, completing full WB through RLE as LLE is instructed to flex by the hip. Pt completes this ~10 x (2 sets), prior to sitting. Pt returns to room, SPT to chair, all needs met, call light in reach, pt's chair alarm on with LE's elevated. Education OT Patient Education: Correct positioning, Exercise program, Home exercise program, Modified ADL techniques, Progress toward Goal/Update tx plan, Purpose of tx/functional activities, Safety issues, Transfer techniques Teaching Recipient: Patient Teaching Methods: Demonstration, Discussion Response to Teaching: Verbalize Understanding, Return Demonstration OT Short Term Goals Short Term Goals Eatin Oral hygiene: 5 Toileting hygiene: 2 Shower/bathe self: 2 Upper body dressin Lower body dressin Putting on/taking off footwear: 2 OT Nursing Home Goals Surveyor'S Assistant Goals Time Frame: Apr 24, 2020 Eating (QC): 6 Oral Hygiene (QC): 6 Toileting Hygiene (QC): 3 Shower/Bathe Self (QC): 3 Upper Body Dressing (QC): 6 Lower Body Dressing (QC): 3 On/Off Footwear (QC): 6 Additional Goals: 1-Demonstrate ADL Tasks, 2-Verbalize Understanding, 3- ImproveStrength/[place] 1=Demonstrate adherence to instructed precautions during ADL tasks. 2=Patient will verbalize/demonstrate understanding of assistive devices/modifications for ADL. 3=Patient will improve strength/tolerance for activity to enable patient to perform ADL's. OT Education/Plan Problem List/Assessment Assessment: Decreased Activ Tolerance, Decreased UE Strength, Dependent Transfers, Impaired Bed Mobility, Impaired Coordination, Impaired Funct Balance, Impaired I ADL's, Impaired Self-Care Skills, Restricted Funct UE ROM, Visual- Perceptual Deficit Discharge Recommendations Plan/Recommendations: Continue POC Therapy Discharge Recommendati: 24 Hour Supervision, Assisted Living, Post Acute OT Treatment Plan/Plan of Care Treatment,Training & Education: Yes Patient would benefit from OT for education, treatment and training to promote independence in ADL's, mobility, safety and/or upper extremity function for ADL's. Plan of Care: ADL Retraining, Caregiver Training, Concurrent Therapy, Functional Mobility, Group Exercise/Act as Ind, Orthotic Fitting/Training, UE Funct Exercise/Act, UE Neuromus Re-Ed/Coord, Visual/Perceptual Retrain, W/C Management Training Treatment Duration: Apr 24, 2020 Frequency: At least 5 of 7 days/Wk (IRF) Estimated Hrs Per Day: 1.5 hours per day Agreement: Yes Rehab Potential: Guarded Time/GCodes Start Time: 08:00 Stop Time: 09:00 Total Time Billed (hr/min): 60 Billed Treatment Time 1, ADL (15), NM 3 (45)= 90 OT addresses ADLs, UE movement/ strength, problem solving/ sequencing and h emianopsia/ scanning while PT addresses LE movement/ strength, balance, fx transfers, etc. FATIMAH KERNS OTR Apr 26, 2020 09:00
[2020-04-26 10:41] VITALS: BP 103/69
[2020-04-26] MEDS: GABAPENTIN 400 MG (NEURONTIN) CAP PO SCH ×2 (10:46→21:10)
[2020-04-26] MEDS: ASPIRIN 81 MG CHEW (CHILDREN'S ASA) PO SCH (10:47)
[2020-04-26] MEDS: APIXABAN 5 MG (ELIQUIS) TABLET PO SCH ×2 (10:47→21:10)
[2020-04-26] MEDS: SPIRONOLACTONE 25 MG (ALDACTONE) TAB PO SCH (10:47)
[2020-04-26] MEDS: BISOPROLOL 5 MG TAB (ZEBETA) PO SCH (10:47)
[2020-04-26] MEDS: polyethylene glycoL POWDER 17 GM (MIRALAX) PACK PO SCH ×2 (10:48→21:09)
[2020-04-26] MEDS: DICLOFENAC 1% GEL 100 GM (VOLTAREN) TUBE TOP SCH ×4 (10:48→21:11)
[2020-04-26] MEDS: SENNA W/DOCUSATE (SENOKOT S) TABLET PO SCH ×2 (10:48→21:09)
[2020-04-26] MEDS: DOCUSATE SODIUM 100 MG (COLACE) CAP PO SCH ×2 (10:48→21:09)
--- NOTE | 2020-04-26 10:53 | Diagnostic Imaging Report ---
EXAMINATION: Modified barium swallow INDICATION: CVA, difficulty swallowing There are no prior exams available for comparison. This study was performed in the presence of the speech pathologist, Karen. The patient was given barium in different substances to swallow. This included honey, nectar, applesauce, banana, ground beef and a barium tablet. The patient was able to swallow all the materials with some difficulty as he did have some trouble initiating the swallowing reflex. Furthermore there is also flash penetration with the nectar consistent barium when taken through a straw. There is no flash penetration when the contrast was administered by spoon. The patient was able to swallow a barium tablet although he did chew the tablet prior to swallowing. There was some delay in the passage of the tablet through the upper esophagus gradually extended into the lower esophagus. IMPRESSION: The swallowing mechanism is compromised as there was flash penetration with the nectar consistent barium when taken through a straw. Dictated by: Dictated on workstation # [id number]
--- NOTE | 2020-04-26 11:23 | Progress Note - Cardiology ---
Cardiology SOAP Progress Note Subjective: No c/o CP, SOB or palpitations Objective: I&O/Vital Signs 04/30/20 05:50 Temp 36.2 Pulse 80 Resp 16 B/P (MAP) 114/75 (88) Pulse Ox 98 O2 Delivery Room Air 04/30/20 00:00 Intake Total 720 ml Balance 720 ml Weight (Pounds): 258 Weight (Ounces): 15.0 Weight (Calculated Kilograms): [id number] Constitutional: appears stated age, AAO x 3; No apparent distress; well- developed, well-nourished Respiratory: chest is bilaterally symmetric, lungs clear to auscultation Cardiovascular: irregularly irregular, S1 and S2 Gastrointestional: soft, round, audible bowel sounds Extremities: No clubbing; no lower extremity edema bilateral Neurologic/Psychiatric: other (RUE and RLE hemiparesis; mild expressive aphasia) Skin: normal color, warm/dry; No rash, No rash on exposed areas, No ulcerations on exposed areas Results/Procedures: Labs A/P: Assessment: Acute CVA, status post mechanical aspiration done at . Still has residual deficits, right sided weakness. Aggressive inpatient rehabilitation. Hx of previous CVA in 2009 and 2014 Cardiomyopathy, EF 10-15% per 2D Echo done at on 03/30/[address]. Underwent [facility]-V ICD and AV node ablation on 04/02/[address] Witt at . Maintained on ROMULO inhibitor, beta evan. Atrial fibrillation with rapid ventricular rate, EKG shows V paced rhythm. OAC with Eliquis Recent AV node ablation on Apr 02, 2020 at [facility] Hypertension, currently hypotensive. I will decrease losartan, continue to monitor. Plan: Continue cardiac regimen Monitor lab from time to time There is no cardiology coverage over the weekend. Refer to primary care attending. If emergent cardiac services are need will require transfer to tertiary care facility, to be decided by primary care attending. RAUL BENJAMIN Apr 26, 2020 11:22
--- NOTE | 2020-04-26 12:15 | PM&R Progress Note ---
Subjective HPI/CC On Admission Date Seen by Provider: Apr 26, 2020 Time Seen by Provider: 05:45 Subjective/Events-last exam 04/26/2020: Patient denies any pain Incontinence requires nursing care 14/12 Pain is pretty well controlled Expressive aphasia makes it difficult to communicate 04/25/20: No major issues Pain controlled Participation with PT 04/24/20: Pt doing pretty well Bowels move after suppository every 48 hrs Decreasing pain medication Decreasing Cozaar due to hypotension per cardiology 04/23/20: BM after suppository every 48hrs Gabapentin BID seems to be working pretty well Using Oxycodone when Gabapentin is not enough No falls 04/22/20: No major issues Expressive aphasia continues Bowels moved yesterday after suppository given every 48 hours 04/21/20: Suppository today and BM Incontinent of B/B Pain improved Does not need to increase Gabapentin 04/20/20: BM yesterday Pain improved Sleepy today Doing better Incontinence : Improve right sided nerve pain Xanax and pain pill helps him BM after suppository Q 48 hours Incontinent of B/B 04/18/20: BM 04/17/20 Eliquis causes blurry vision per sister so will inquire with Dr Gibson regarding Xarelto Incontinent 04/17/20: Bowels not moving so will initiate Dulcolax suppository every 48hrs after laxatives given and he is agreeable for that plan Denies any significant new issues Pain is getting much better with the Gabapentin twice daily and Oxycodone 04/16/20: Right-sided pain still so increased Gabapentin to 300 Mg BID Xanax will help too Oxycodone also helps 04/15/20: Gabapentin maintained Oxycodone maintained Confusion noted? 04/14/20: Monitoring BP Pain right side still present and will increase Gabapentin 04/13/20: Right arm and right leg pain and issue Oxycodone not really helping Nerve pain so will give Gabapentin 04/12/20: Severe pain on right side Oxycodone ordered Participating in therapies well No other pain Pt doing pretty well Expressive aphasia is an issue WBC is 12.4 CMP normal Consulting cardiology Overall doing very well Conferred with RN Checked meds and labs Reviewed therapy notes Review of Systems General: Fatigue Musculoskeletal: arm pain, leg pain Focused Exam Lactate Level 04/26/20 07:15: Lactic Acid Level 1.33 Objective Exam Vital Signs Vital Signs Date Time Temp Pulse Resp B/P (MAP) Pulse Ox O2 Delivery O2 Flow Rate FiO2 04/26/20 16:00 36.4 58 16 119/77 (91) 92 Room Air Capillary Refill : Less Than 3 Seconds General Appearance: No Apparent Distress, WD/WN, Chronically ill HEENT: PERRL/EOMI, Normal ENT Inspection, Pharynx Normal Neck: Full Range of Motion, Normal Inspection, Non Tender, Supple, Carotid Bruit Respiratory: Chest Non Tender, Lungs Clear, Normal Breath Sounds, No Accessory Muscle Use, No Respiratory Distress Cardiovascular: Regular Rate, Rhythm, No Edema, No Gallop, No JVD, No Murmur, Normal Peripheral Pulses Gastrointestinal: Normal Bowel Sounds, No Organomegaly, No Pulsatile Mass, Non Tender, Soft Back: Normal Inspection, No CVA Tenderness, No Vertebral Tenderness Extremity: Normal Capillary Refill, Normal Inspection, Normal Range of Motion, Non Tender, No Calf Tenderness, No Pedal Edema Neurologic/Psychiatric: Alert, Normal Mood/Affect, Abnormal Gait, Aphasia, D epressed Affect, Disoriented, Motor Weakness (right sided flaccidity) Skin: Normal Color, Warm/Dry Lymphatic: No Adenopathy Results/Procedures Lab Laboratory Tests 04/26/20 07:15 Patient resulted labs reviewed. FIM Transfers Therapy Code Descriptions/Definitions Functional [place] Measure: 0=Not Assessed/NA 4=Minimal Assistance 1=Total Assistance 5=Supervision or Setup 2=Maximal Assistance 6=Modified [place] 3=Moderate Assistance 7=Complete IndependenceSCALE: Activities may be completed with or without assistive devices. 3-Tkzwpghvpb-ygnuuio completes the activity by him/herself with no assistance from a helper. 5-Set-up or Clean-up Assistance-helper sets up or cleans up; patient completes activity. [place] assists only prior to or following the activity. 4-Supervision or Touching Assistance-helper provides verbal cues and/or touching/steadying and/or contact guard assistance as patient completes activity. Assistance may be provided throughout the activity or intermittently. 3-Partial/Moderate Assistance-helper does LESS THAN HALF the effort. [place] lifts, holds or supports trunk or limbs, but provides less than half the effort. 2-Substantial/Maximal Assistance-helper does MORE THAN HALF the effort. [place] lifts or holds trunk or limbs and provides more than half the effort. 2-Ncvgbbnbn-rrpcaj does ALL the effort. Patient does none of the effort to com plete the activity. Or, the assistance of 2 or more helpers is required for the patient to complete the activity. If activity was not attempted, code reason: 7-Patient Refused. 9-Not Applicable-not attempted and the patient did not perform the activity before the current illness, exacerbation or injury. 10-Not Attempted due to Environmental Limitations-(lack of equipment, weather restraints, etc.). 88-Not Attempted due to Medical Conditions or Safety Concerns. Roll Left to Right (QC): 4 Sit to Lying (QC): 4 Sit to Stand (QC): 3 Chair/Lub-ms-Asjtq Xfer(QC): 3 Car Transfer (QC): 2 Gait Training Distance: 20'x3 Walk 10 feet (QC): 2 Walk 50 ft with 2 Turns(QC): 88 Walk 150 ft (QC): 88 Walking 10ft/uneven surface-QC: 88 Gait Persons Needed: 2 Gait Assistive Device: Walker Jose Wheelchair Training Does the Pt Use a Wheelchair?: Yes Wheel 50 ft with 2 turns (QC): 4 Wheel 150 ft (QC): 4 Type of Wheelchair: Manual Stair Training 1 Step (curb) (QC): 88 4 Steps (QC): 88 12 Steps (QC): 88 Balance Picking up an Object (QC): 88 ADL-Treatment Eating (QC): 6 (eating in bed this am with IND with modified diet.) Oral Hygiene (QC): 4 (Pt requires cues for opening new/ larger toothpaste. Pt is instructed to support with BLE adducted, sqeeze with this motion, and scrape from toothbrush. Pt completes with increased cues.) Bathing Location: L Arm, R Arm, L Upper Leg, R Upper Leg, Chest, Abdomen, Buttocks, Perineal Area Shower/Bathe Self (QC): 4 (SBA all tasks. ) Upper Body Dressing (QC): 3 (mod A this date) Lower Body Dressing (QC): 2 (max A threading BLE in bed this am. Pt able to bridge/ hike over hips with min A to R side.) On/Off Footwear (QC): 3 (s/u and min A for R shoe donning) Toileting Hygiene (QC): 7 Toilet Transfer (QC): 3 (mod A EOB to commode. Pt sits on commode with basil jeff. 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 Defib in place Cardiomyopathy HTN Plan: Monitor dysphagia Cardiology consultation IRF protocol 04/11/20: Monitor BP Appreciate Cardiology 04/12/20: Monitor closely Pain management 04/13/20: Gabapentin Oxycodone 04/14/20: Increase Gabapentin Oxycodone BM regimen to increase today may need supp 04/15/20: BM++ Monitor pain of right side 04/16/20: Increase dose of Neurontin Maintain aggressive rehab 04/17/20: BM regimen to include supp Q48 hrs Monitor pain Monitor BP 04/18/20: Increased Gabpentin some more today BM regimen 04/19/20: Manage incontinence Right arm and right leg pain management 04/20/20: Maintain pain control Incontinence management BM regimen 04/21/20: Suppository [id number] Monitor closely Pain control 04/22/20: Continue BM regimen Monitor right sided pain 04/23/20: BM regimen PT OT Incontinence care 04/24/20: Monitor BP Fall risk BM regimen 04/25/20: No med changes Pain controlled 04/26/2020: Pain management Bowel regimen with suppository every 48 hours Continue intensive therapy (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
--- NOTE | 2020-04-26 13:14 | ST Mod Barium Swallow ---
Speech Evaluation-General Medical Diagnosis CVA, R side flaccidity Onset Date: Mar 30, 2020 Therapy Diagnosis Therapy Diagnosis: Oropharyngeal Dysphagia Precautions Precautions: Aspiration Referral Referring Physician: Dr. Onofre Medical History Pertinent Medical History: CVA, HTN Reviewed History: Yes Social History Current Living Status: Speech Mod Barium Swallow Prior Level of Function Patient was able to eat whatever he wanted without aspiration risk. Oral Motor Skills Dentition Comments: Patient has all natural teeth Lingual Protrusion: Normal Lingual ROM: Normal Lingual Strength: Normal Velum: Normal Volitional Dry Swallow: Yes Voluntary Cough: Yes Can Clear Throat Volitionally: Yes Textures-Lateral View Lateral View Food Presentation: [place] Liquid via Spoon, [place] Liquid via Straw, Honey Liquid via Spoon, Pureed Solids, Ground Solids, Mechanial Soft Solids, Regular Solids, Barrium Tablet Oral Phase Labial Closure: No Impairment (WFL) Bolus Formation Pooling L/R: Minimal Impairment Bolus Formation Placement: Minimal Impairment Mastication Rotary Chew: Minimal Impairment A/P Lingual Propulsion: Mild Impairment Lingual Movement: Minimal Impairment Patient was able to swallow all consistencies with some difficulty with initiating thw swallowing reflex. Oral Phase Residue: No Impairment (WFL) Pharyngeal Phase Swallow Response: Minimal Impairment Base of Tongue: Minimal Impairment Epiglottic Movement: Mild Impairment Delay noted in the passage of the tablet from upper esophagus to lower Laryngeal Elevation: Minimal Impairment Vallecular Residue: Mild Pharyngeal Wall Residue: Mild Piriform Sinus Residue: No Impairment (WFL) Laryngeal Penetration: Mild Flash penetration with nectar consistency via straw but not via spoon Aspiration Observations: None Esophageal Phase A/P Esophageal Propulsion Time: Less Than 5 Seconds Normal With all but tablet which required subsequent swallows for clearing Performed-A/P View Not Applicable/Performed Summary/Impressions Oral Phase Impression: Mild Impairment Patient is a 59 y/o male who was admitted to the ARU s/p CVA. this patient has had three CVA's since he was 39 y/o. Patient admitted to this hospital from . He was on nectar consistency liquids and modified diet upon admit. Patient has been doing well with intake. He has completed a few bedside trials with thin liquids without s/s of aspiration. The patient was ordered for an MBS to insure the least restrictive diet for advance if appropriate. The patient exhibited flash penetration on the nectar consistency delivered by straw but not by spoon. The thin liquids were not given due to the penetration with nectar. The patient is recommended to continue with Dysphagia II diet level and nectar consistency liquids. NO STRAWS are allowed for intake. This information was provided to his nurse. Speech Short Term Goals Short Term Goals Short Term Goals 1) The patient will complete OME for improved speech production at each session with 80% or greater accuracy. 2) The patient will complete word finding tasks with 80% or greater accuracy. 3) The patient will complete expressive language tasks 80% or greater accuracy. 4) The patient will tolerate least restrictive diet level without s/s of aspiration at 80% or greater accuracy. 5) The patient will utilize compensatory strategies as trained 80% or greater ac curacy. Speech Half-Way Goals Sleep Scientist Goals Patient will improve cognitive-communication abilities for completion of daily needs with minimal assist. Patient will maintain adequate nutrition/hydration via safe effective swallow function. Speech-Plan Patient/Family Goals Patient/Family Goals: Patient plans to return home eventually where he lives with his sister and brother in law. At this time discharge plan is to go to a SNF until he require less assistance for daily needs. Treatment Plan Speech Therapy Treatment Plan: Continue Plan of Care Treatment Duration: Apr 29, 2020 Frequency: 4 times per week (Patient will receive skilled ST 4-5x per week) Estimated Hrs Per Day: .5 hour per day Rehab Potential: Guarded Barriers to Learning: Patient's recent CVA deficits including dysphagia and expressive aphasia Pt/Family Agrees to Plan: Yes Safety Risks/Education Teaching Recipient: Patient Teaching Methods: Demonstration, Discussion Response to Teaching: Verbalize Understanding, Return Demonstration Education Topics Provided: Continued safety with oral intake and utilization of compensatory strategies. Time Speech Therapy Time In: 09:30 Speech Therapy Time Out: 10:00 Total Billed Time: 30 Billed Treatment Time 1, DYST, MOD, SLTS No FIDEL WORKMAN Apr 26, 2020 13:14
--- NOTE | 2020-04-26 14:14 | Therapy Group Daily Note ---
Therapy Daily Group Note Patient Education Topic Home Safety, Other List Below (med managment) Exercises LE Seated Exercise, UE Exercise Session Ratio (pt:therapist): 3:1 Goal of Session: Home Safety Strategies, UE/LE Strengthing Goal Met for this Session: Yes Pt Benefit of Group: Contributions to Others, F/U Use of Strategies @Home, Increased Functional Safety, Increased Functional Strength, Improved Cognition, Recognition of Peers, Socialization Other/Notes Pt propelled to therapy gym. Pt stated orientation (person, living, best piece of advice you were given). Pt participated in socialization, LE/UE seated exercises, medication management, home safety. Pt gave feedback/ideas throughout group, to acknowledge of educational topics. Pt demonstrated shoulder flexion, shoulder shrugs, horizontal should abduction/adduction. Pt demonstrated ankle pumps, leg flexion, marches. Pt completed 3 exercise 1 set 10 reps B UE self ROM. Pt completed 3 exercises 1 set of 10 reps LE exercises. Pt propelled self to room. Pt in recliner call light/phone in reach. All needs met. Start Time: 12:45 Stop Time: 13:50 Total Billed Treatment Time: 65 Total Billed Treatment 1 visit- GRP SRIDHAR VARGAS Apr 26, 2020 14:14
[2020-04-26 16:00] VITALS: BP 119/77
--- NOTE | 2020-04-26 16:58 | Progress Note - Cardiology ---
Cardiology SOAP Progress Note Subjective: Malaise present No cp or palp or syncope or shortness of breath No n/v/d Objective: I&O/Vital Signs 04/26/20 04/26/20 05:47 10:41 Temp 36.0 Pulse 80 80 Resp 14 18 B/P (MAP) 89/60 (70) 103/69 (80) Pulse Ox 98 96 O2 Delivery Room Air Room Air 04/26/20 00:00 Intake Total 1200 ml Balance 1200 ml Weight (Pounds): 258 Weight (Ounces): 15.0 Weight (Calculated Kilograms): 117.750913 Constitutional: appears stated age, AAO x 3; No apparent distress; well- developed, well-nourished Respiratory: chest is bilaterally symmetric, lungs clear to auscultation Cardiovascular: irregularly irregular, S1 and S2 Gastrointestional: soft, round, audible bowel sounds Extremities: No clubbing; no lower extremity edema bilateral Neurologic/Psychiatric: other (RUE and RLE hemiparesis; mild expressive aphasia) Skin: normal color, warm/dry; No rash, No rash on exposed areas, No ulcerations on exposed areas Results/Procedures: Labs Laboratory Tests 04/26/20 07:15: White Blood Count 7.5, Red Blood Count 5.51, Hemoglobin 16.4, Hematocrit 50, Mean Corpuscular Volume 91, Mean Corpuscular Hemoglobin 30, Mean Corpuscular Hemoglobin Concent 33, Red Cell Distribution Width 13.3, Platelet Count 190, Mean Platelet Volume 11.5, Sodium Level 139, Potassium Level 4.0, Chloride Level 105, Carbon Dioxide Level 24, Anion Gap 10, Blood Urea Nitrogen 15, Creatinine 0.93, Estimat Glomerular Filtration Rate > 60, BUN/Creatinine Ratio 16, Glucose Level 110H, Lactic Acid Level 1.33, Calcium Level 9.7, Corrected Calcium 9.9, Total Bilirubin 0.6, Aspartate Amino Transf (AST/SGOT) 58H, Alanine Aminotransferase (ALT/SGPT) 101H, Alkaline Phosphatase 142H, Total Protein 7.5, Albumin 3.8 A/P: Assessment: Acute CVA, status post mechanical aspiration done at . Still has residual deficits, right sided weakness. Hx of previous CVA in 2009 and 2014 Cardiomyopathy, EF 10-15% per 2D Echo done at on 03/30/[address]. [address] [facility] ICD and AV node ablation on 04/02/[address] Witt at . Maintained on ROMULO inhibitor, beta evan. Atrial fibrillation OAC with Eliquis Recent AV node ablation on Apr 02, 2020 at [facility] Hypertension, but currently low normal or borderline low SBP (losartan stopped) Plan: Continue cardiac regimen Monitor lab from time to time There is no cardiology coverage over the weekend. Refer to primary care attending. If emergent cardiac services are needed will require transfer to tertiary care facility, to be decided by primary care attending. ARASH SHANKAR MD FACP [facility] Apr 26, 2020 16:58
[2020-04-27 05:14] VITALS: BP 102/68
--- NOTE | 2020-04-27 06:09 | PM&R Progress Note ---
Subjective HPI/CC On Admission Date Seen by Provider: Apr 27, 2020 Time Seen by Provider: 06:00 Subjective/Events-last exam 04/27/2020: Incontinence of both bowel and bladder are limitations Denies any significant new issues Pain is pretty well controlled on the right side for flaccidity muscle spasms 04/26/2020: Patient denies any pain Incontinence requires nursing care 14/12 Pain is pretty well controlled Expressive aphasia makes it difficult to communicate 04/25/20: No major issues Pain controlled Participation with PT 04/24/20: Pt doing pretty well Bowels move after suppository every 48 hrs Decreasing pain medication Decreasing Cozaar due to hypotension per cardiology 04/23/20: BM after suppository every 48hrs Gabapentin BID seems to be working pretty well Using Oxycodone when Gabapentin is not enough No falls 04/22/20: No major issues Expressive aphasia continues Bowels moved yesterday after suppository given every 48 hours 04/21/20: Suppository today and BM Incontinent of B/B Pain improved Does not need to increase Gabapentin 04/20/20: BM yesterday Pain improved Sleepy today Doing better Incontinence : Improve right sided nerve pain Xanax and pain pill helps him BM after suppository Q 48 hours Incontinent of B/B 04/18/20: BM 04/17/20 Eliquis causes blurry vision per sister so will inquire with Dr Gibson regarding Xarelto Incontinent 04/17/20: Bowels not moving so will initiate Dulcolax suppository every 48hrs after laxatives given and he is agreeable for that plan Denies any significant new issues Pain is getting much better with the Gabapentin twice daily and Oxycodone 04/16/20: Right-sided pain still so increased Gabapentin to 300 Mg BID Xanax will help too Oxycodone also helps 04/15/20: Gabapentin maintained Oxycodone maintained Confusion noted? 04/14/20: Monitoring BP Pain right side still present and will increase Gabapentin 04/13/20: Right arm and right leg pain and issue Oxycodone not really helping Nerve pain so will give Gabapentin 04/12/20: Severe pain on right side Oxycodone ordered Participating in therapies well No other pain Pt doing pretty well Expressive aphasia is an issue WBC is 12.4 CMP normal Consulting cardiology Overall doing very well Conferred with RN Checked meds and labs Reviewed therapy notes Review of Systems General: Fatigue, Malaise Neurological: Weakness, Incoordination, Change in speech Focused Exam Lactate Level 04/26/20 07:15: Lactic Acid Level 1.33 Objective Exam Vital Signs Vital Signs Date Time Temp Pulse Resp B/P (MAP) Pulse Ox O2 Delivery O2 Flow Rate FiO2 04/27/20 10:08 80 18 111/75 (87) 98 Room Air 04/27/20 05:14 36.2 Capillary Refill : Less Than 3 Seconds General Appearance: No Apparent Distress, WD/WN, Chronically ill HEENT: PERRL/EOMI, Normal ENT Inspection, Pharynx Normal Neck: Full Range of Motion, Normal Inspection, Non Tender, Supple, Carotid Bruit Respiratory: Chest Non Tender, Lungs Clear, Normal Breath Sounds, No Accessory Muscle Use, No Respiratory Distress Cardiovascular: Regular Rate, Rhythm, No Edema, No Gallop, No JVD, No Murmur, Normal Peripheral Pulses Gastrointestinal: Normal Bowel Sounds, No Organomegaly, No Pulsatile Mass, Non Tender, Soft Back: Normal Inspection, No CVA Tenderness, No Vertebral Tenderness Extremity: Normal Capillary Refill, Normal Inspection, Normal Range of Motion, Non Tender, No Calf Tenderness, No Pedal Edema Neurologic/Psychiatric: Alert, Normal Mood/Affect, Abnormal Gait, Aphasia, Depressed Affect, Disoriented, Motor Weakness (right sided flaccidity) Skin: Normal Color, Warm/Dry Lymphatic: No Adenopathy Results/Procedures Lab Patient resulted labs reviewed. FIM Transfers Therapy Code Descriptions/Definitions Functional [place] Measure: 0=Not Assessed/NA 4=Minimal Assistance 1=Total Assistance 5=Supervision or Setup 2=Maximal Assistance 6=Modified [place] 3=Moderate Assistance 7=Complete IndependenceSCALE: Activities may be completed with or without assistive devices. 5-Yxcolycbxs-fhiwbyn completes the activity by him/herself with no assistance from a helper. 5-Set-up or Clean-up Assistance-helper sets up or cleans up; patient completes activity. [place] assists only prior to or following the activity. 4-Supervision or Touching Assistance-helper provides verbal cues and/or touching/steadying and/or contact guard assistance as patient completes activity. Assistance may be provided throughout the activity or intermittently. 3-Partial/Moderate Assistance-helper does LESS THAN HALF the effort. [place] lifts, holds or supports trunk or limbs, but provides less than half the effort. 2-Substantial/Maximal Assistance-helper does MORE THAN HALF the effort. [place] lifts or holds trunk or limbs and provides more than half the effort. 2-Yqjdyekix-oicnir does ALL the effort. Patient does none of the effort to complete the activity. Or, the assistance of 2 or more helpers is required for the patient to complete the activity. If activity was not attempted, code reason: 7-Patient Refused. 9-Not Applicable-not attempted and the patient did not perform the activity before the current illness, exacerbation or injury. 10-Not Attempted due to Environmental Limitations-(lack of equipment, weather restraints, etc.). 88-Not Attempted due to Medical Conditions or Safety Concerns. Roll Left to Right (QC): 4 Sit to Lying (QC): 4 Sit to Stand (QC): 3 Chair/Jwh-fv-Ugcps Xfer(QC): 3 Car Transfer (QC): 2 Gait Training Distance: 20'x3 Walk 10 feet (QC): 2 Walk 50 ft with 2 Turns(QC): 88 Walk 150 ft (QC): 88 Walking 10ft/uneven surface-QC: 88 Gait Persons Needed: 2 Gait Assistive Device: Walker Jose Wheelchair Training Does the Pt Use a Wheelchair?: Yes Wheel 50 ft with 2 turns (QC): 4 Wheel 150 ft (QC): 4 Type of Wheelchair: Manual Stair Training 1 Step (curb) (QC): 88 4 Steps (QC): 88 12 Steps (QC): 88 Balance Picking up an Object (QC): 88 ADL-Treatment Eating (QC): 6 (eating in bed this am with IND with modified diet.) Oral Hygiene (QC): 4 (Pt requires cues for opening new/ larger toothpaste. Pt is instructed to support with BLE adducted, sqeeze with this motion, and scrape from toothbrush. Pt completes with increased cues.) Bathing Location: L Arm, R Arm, L Upper Leg, R Upper Leg, Chest, Abdomen, Buttocks, Perineal Area Shower/Bathe Self (QC): 4 (SBA all tasks. ) Upper Body Dressing (QC): 3 (mod A this date) Lower Body Dressing (QC): 2 (max A threading BLE in bed this am. Pt able to bridge/ hike over hips with min A to R side.) On/Off Footwear (QC): 3 (s/u and min A for R shoe donning) Toileting Hygiene (QC): 7 Toilet Transfer (QC): 3 (mod A EOB to commode. Pt sits on commode with fair balance. 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 Defib in place Cardiomyopathy HTN Plan: Monitor dysphagia Cardiology consultation IRF protocol 04/11/20: Monitor BP Appreciate Cardiology 04/12/20: Monitor closely Pain management 04/13/20: Gabapentin Oxycodone 04/14/20: Increase Gabapentin Oxycodone BM regimen to increase today may need supp 04/15/20: BM++ Monitor pain of right side 04/16/20: Increase dose of Neurontin Maintain aggressive rehab 04/17/20: BM regimen to include supp Q48 hrs Monitor pain Monitor BP 04/18/20: Increased Gabpentin some more today BM regimen 04/19/20: Manage incontinence Right arm and right leg pain management 04/20/20: Maintain pain control Incontinence management BM regimen 04/21/20: Suppository [id number] Monitor closely Pain control 04/22/20: Continue BM regimen Monitor right sided pain 04/23/20: BM regimen PT OT Incontinence care 04/24/20: Monitor BP Fall risk BM regimen 04/25/20: No med changes Pain controlled 04/26/2020: Pain management Bowel regimen with suppository every 48 hours Continue intensive therapy 04/27/2020: Aggressive therapy Incontinence care Pain control (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
[2020-04-27] MEDS: BISACODYL 10 MG SUPP (DULCOLAX) PR SCH (06:47)
[2020-04-27] MEDS: GABAPENTIN 400 MG (NEURONTIN) CAP PO SCH ×2 (10:04→20:14)
[2020-04-27] MEDS: ASPIRIN 81 MG CHEW (CHILDREN'S ASA) PO SCH (10:04)
[2020-04-27] MEDS: APIXABAN 5 MG (ELIQUIS) TABLET PO SCH ×2 (10:05→20:14)
[2020-04-27] MEDS: SENNA W/DOCUSATE (SENOKOT S) TABLET PO SCH ×2 (10:07→20:14)
[2020-04-27] MEDS: polyethylene glycoL POWDER 17 GM (MIRALAX) PACK PO SCH ×2 (10:07→20:14)
[2020-04-27] MEDS: DOCUSATE SODIUM 100 MG (COLACE) CAP PO SCH ×2 (10:07→20:14)
[2020-04-27 10:08] VITALS: BP 111/75
[2020-04-27] MEDS: DICLOFENAC 1% GEL 100 GM (VOLTAREN) TUBE TOP SCH ×4 (10:08→20:15)
[2020-04-27] MEDS: BISOPROLOL 5 MG TAB (ZEBETA) PO SCH (10:09)
[2020-04-27] MEDS: SPIRONOLACTONE 25 MG (ALDACTONE) TAB PO SCH (10:10)
--- NOTE | 2020-04-27 10:59 | Physical Therapy Daily Note ---
PT Daily Note-Current Subjective Pt. in bed. Agrees to Rx. Pt. attempts to communicate with great difficulty Pain Location: No Pain Reported Mental Status Patient Orientation: Non-Verbal/Aphasic Attachments: Other-See Comments (knee immoblizer for gait) Transfers SCALE: Activities may be completed with or without assistive devices. 3-Gjwqqutyye-rxtzumb completes the activity by him/herself with no assistance from a helper. 5-Set-up or Clean-up Assistance-helper sets up or cleans up; patient completes activity. [place] assists only prior to or following the activity. 4-Supervision or Touching Assistance-helper provides verbal cues and/or touching/steadying and/or contact guard assistance as patient completes a ctivity. Assistance may be provided throughout the activity or intermittently. 3-Partial/Moderate Assistance-helper does LESS THAN HALF the effort. [place] lifts, holds or supports trunk or limbs, but provides less than half the effort. 2-Substantial/Maximal Assistance-helper does MORE THAN HALF the effort. [place] lifts or holds trunk or limbs and provides more than half the effort. 7-Oucslkclg-aufwtv does ALL the effort. Patient does none of the effort to complete the activity. Or, the assistance of 2 or more helpers is required for the patient to complete the activity. If activity was not attempted, code reason: 7-Patient Refused. 9-Not Applicable-not attempted and the patient did not perform the activity before the current illness, exacerbation or injury. 10-Not Attempted due to Environmental Limitations-(lack of equipment, weather restraints, etc.). 88-Not Attempted due to Medical Conditions or Safety Concerns. sup to sit min to mod, retropulsive , TRF bed to w/c toward left and right with mod to min assist Weight Bearing Full Weight Bearing Full Weight Bearing Gait Training Gait Assistive Device: Handheld Assist (hallway rail at left hand) knee immoblizer applied to right knee , gait at rail in akers 15ftx2 L hand with mod assist for balance as well as to advance right leg and keep it in good wt bearing position Wheelchair Training Does the Pt Use a Wheelchair?: Yes Type of Wheelchair: Manual pt. propelled w/c 100ft x 2 SBA Treatments TRFs, w/c mob, gait, Assessment Current Status: Good Progress pt. impulsive, letting go of rail with no regard for balance at times PT Short Term Goals Short Term Goals Time Frame: Apr 18, 2020 Roll Left & Right: 3 Sit to lyin Lying to sitting on side of be: 3 Sit to stand: 3 Chair/lhx-hp-vchsj transfer: 3 PT Setter Automatic Spinning Lathe Goals Setter Automatic Spinning Lathe Goals PT Chcf Goals Time Frame: May 02, 2020 Roll Left & Right (QC): 3 (Zoya) Sit to Lying (QC): 3 (Zoya) Lying-Sitting on Side/Bed(QC): 3 (Zoya) Sit to Stand (QC): 3 (Zoya) Chair/Nld-kt-Jwybk Xfer(QC): 3 (Zoya) Toilet Transfer (QC): 3 (Zoya) Car Transfer (QC): 3 (Zoya) Does the Patient Walk: No and Walking Goal NOT indicated Walk 10 feet (QC): 88 Walk 50ft with 2 Turns (QC): 88 Walk 150 ft (QC): 88 Walking 10ft on Uneven Surface: 88 1 Step (curb) (QC): 88 4 Steps (QC): 88 12 Steps (QC): 88 Picking up an Object (QC): 88 Wheel 50 feet with 2 turns (QC: 4 Wheel 150 feet: 4 PT Plan Treatment/Plan Treatment Plan: Continue Plan of Care Treatment Plan: Bed Mobility, Education, Functional Activity [place], Functional Strength, Group Therapy, Gait, Safety, Therapeutic Exercise, Transfers Treatment Duration: May 01, 2020 Frequency: At least 5 of 7 days/Wk (IRF) Estimated Hrs Per Day: 1.5 hours per day Patient and/or Family Agrees t: Yes Safety Risks/Education Patient Education: Gait Training, Transfer Techniques, Correct Positioning, Safety Issues Teaching Recipient: Patient Teaching Methods: Demonstration Response to Teaching: Reinforcement Needed Time/GCodes Time In: 1025 Time Out: 1055 Total Billed Treatment Time: 30 Total Billed Treatment 1,FA15,GT15 ZAIRA GALEANA TEACHER [employer] Apr 27, 2020 10:59
[2020-04-27 17:30] VITALS: BP 107/66
[2020-04-27] MEDS: ACETAMINOPHEN 325 MG TABLET PO PRN (18:45)
--- NOTE | 2020-04-28 02:39 | NUR ---
Juan is a 59 yo male patient currently present on ARU following a CVA which resulted in right side weakness/flaccidity. Patient has had a lengthy hospital course which began at [facility] and ultimately he was transferred to for inpatient rehab. He does have a noted pacemaker to left upper chest, incision is currently steri-stripped, clean, dry, and no concerns noted. Juan is A&O but does have noted expressive aphasia. He is able to answer yes/no questions appropriately. Patient has declined turning most of the night and reports he self positions. This nurse did education patient on the importance of fully shifting weight to prevent pressure breakdown. This nurse has also checked on patient frequently throughout the night and he appears to be sleeping well. No further issues noted with patient. This nurse will continue to monitor throughout shift.
[2020-04-28 05:15] VITALS: BP 111/70
--- NOTE | 2020-04-28 06:13 | PM&R Progress Note ---
Subjective HPI/CC On Admission Date Seen by Provider: Apr 28, 2020 Time Seen by Provider: 06:20 Subjective/Events-last exam 04/28/20: Periarea red so will start antifungal powder No pain reported otherwise Incontinence will require 14/12 nursing care along with severe deficit 04/27/2020: Incontinence of both bowel and bladder are limitations Denies any significant new issues Pain is pretty well controlled on the right side for flaccidity muscle spasms 04/26/2020: Patient denies any pain Incontinence requires nursing care 14/12 Pain is pretty well controlled Expressive aphasia makes it difficult to communicate 04/25/20: No major issues Pain controlled Participation with PT 04/24/20: Pt doing pretty well Bowels move after suppository every 48 hrs Decreasing pain medication Decreasing Cozaar due to hypotension per cardiology 04/23/20: BM after suppository every 48hrs Gabapentin BID seems to be working pretty well Using Oxycodone when Gabapentin is not enough No falls 04/22/20: No major issues Expressive aphasia continues Bowels moved yesterday after suppository given every 48 hours 04/21/20: Suppository today and BM Incontinent of B/B Pain improved Does not need to increase Gabapentin 04/20/20: BM yesterday Pain improved Sleepy today Doing better Incontinence : Improve right sided nerve pain Xanax and pain pill helps him BM after suppository Q 48 hours Incontinent of B/B 04/18/20: BM 04/17/20 Eliquis causes blurry vision per sister so will inquire with Dr Gibson regarding Xarelto Incontinent 04/17/20: Bowels not moving so will initiate Dulcolax suppository every 48hrs after laxatives given and he is agreeable for that plan Denies any significant new issues Pain is getting much better with the Gabapentin twice daily and Oxycodone 04/16/20: Right-sided pain still so increased Gabapentin to 300 Mg BID Xanax will help too Oxycodone also helps 04/15/20: Gabapentin maintained Oxycodone maintained Confusion noted? 04/14/20: Monitoring BP Pain right side still present and will increase Gabapentin 04/13/20: Right arm and right leg pain and issue Oxycodone not really helping Nerve pain so will give Gabapentin 04/12/20: Severe pain on right side Oxycodone ordered Participating in therapies well No other pain Pt doing pretty well Expressive aphasia is an issue WBC is 12.4 CMP normal Consulting cardiology Overall doing very well Conferred with RN Checked meds and labs Reviewed therapy notes Review of Systems General: Fatigue, Malaise Neurological: Weakness, Incoordination Focused Exam Lactate Level 04/26/20 07:15: Lactic Acid Level 1.33 Objective Exam Vital Signs Vital Signs Date Time Temp Pulse Resp B/P (MAP) Pulse Ox O2 Delivery O2 Flow Rate FiO2 04/28/20 05:15 36.3 81 16 111/70 (84) 97 Room Air Capillary Refill : Less Than 3 Seconds General Appearance: No Apparent Distress, WD/WN, Chronically ill HEENT: PERRL/EOMI, Normal ENT Inspection, Pharynx Normal Neck: Full Range of Motion, Normal Inspection, Non Tender, Supple, Carotid B ruit Respiratory: Chest Non Tender, Lungs Clear, Normal Breath Sounds, No Accessory Muscle Use, No Respiratory Distress Cardiovascular: Regular Rate, Rhythm, No Edema, No Gallop, No JVD, No Murmur, Normal Peripheral Pulses Gastrointestinal: Normal Bowel Sounds, No Organomegaly, No Pulsatile Mass, Non Tender, Soft Back: Normal Inspection, No CVA Tenderness, No Vertebral Tenderness Extremity: Normal Capillary Refill, Normal Inspection, Normal Range of Motion, Non Tender, No Calf Tenderness, No Pedal Edema Neurologic/Psychiatric: Alert, Normal Mood/Affect, Abnormal Gait, Aphasia, Depressed Affect, Disoriented, Motor Weakness (right sided flaccidity) Skin: Normal Color, Warm/Dry Lymphatic: No Adenopathy Results/Procedures Lab Patient resulted labs reviewed. FIM Transfers Therapy Code Descriptions/Definitions Functional [place] Measure: 0=Not Assessed/NA 4=Minimal Assistance 1=Total Assistance 5=Supervision or Setup 2=Maximal Assistance 6=Modified [place] 3=Moderate Assistance 7=Complete IndependenceSCALE: Activities may be completed with or without assistive devices. 9-Ednqfhtmpu-tvnyigs completes the activity by him/herself with no assistance from a helper. 5-Set-up or Clean-up Assistance-helper sets up or cleans up; patient completes activity. [place] assists only prior to or following the activity. 4-Supervision or Touching Assistance-helper provides verbal cues and/or touching/steadying and/or contact guard assistance as patient completes activity. Assistance may be provided throughout the activity or intermittently. 3-Partial/Moderate Assistance-helper does LESS THAN HALF the effort. [place] lifts, holds or supports trunk or limbs, but provides less than half the effort. 2-Substantial/Maximal Assistance-helper does MORE THAN HALF the effort. [place] lifts or holds trunk or limbs and provides more than half the effort. 0-Bpuyljqvi-hrcrgv does ALL the effort. Patient does none of the effort to complete the activity. Or, the assistance of 2 or more helpers is required for the patient to complete the activity. If activity was not attempted, code reason: 7-Patient Refused. 9-Not Applicable-not attempted and the patient did not perform the activity before the current illness, exacerbation or injury. 10-Not Attempted due to Environmental Limitations-(lack of equipment, weather restraints, etc.). 88-Not Attempted due to Medical Conditions or Safety Concerns. Roll Left to Right (QC): 4 Sit to Lying (QC): 4 Sit to Stand (QC): 3 Chair/Zez-uu-Prjaw Xfer(QC): 3 Car Transfer (QC): 2 Gait Training Distance: 20'x3 Walk 10 feet (QC): 2 Walk 50 ft with 2 Turns(QC): 88 Walk 150 ft (QC): 88 Walking 10ft/uneven surface-QC: 88 Gait Persons Needed: 2 Gait Assistive Device: Handheld Assist (hallway rail at left hand) Wheelchair Training Does the Pt Use a Wheelchair?: Yes Wheel 50 ft with 2 turns (QC): 4 Wheel 150 ft (QC): 4 Type of Wheelchair: Manual Stair Training 1 Step (curb) (QC): 88 4 Steps (QC): 88 12 Steps (QC): 88 Balance Picking up an Object (QC): 88 ADL-Treatment Eating (QC): 6 (eating in bed this am with IND with modified diet.) Oral Hygiene (QC): 4 (Pt requires cues for opening new/ larger toothpaste. Pt is instructed to support with BLE adducted, sqeeze with this motion, and scrape from toothbrush. Pt completes with increased cues.) Bathing Location: L Arm, R Arm, L Upper Leg, R Upper Leg, Chest, Abdomen, Buttocks, Perineal Area Shower/Bathe Self (QC): 4 (SBA all tasks. ) Upper Body Dressing (QC): 3 (mod A this date) Lower Body Dressing (QC): 2 (max A threading BLE in bed this am. Pt able to bridge/ hike over hips with min A to R side.) On/Off Footwear (QC): 3 (s/u and min A for R shoe donning) Toileting Hygiene (QC): 7 Toilet Transfer (QC): 3 (mod A EOB to commode. Pt sits on commode with fair balance. 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 Defib in place Cardiomyopathy HTN Plan: Monitor dysphagia Cardiology consultation IRF protocol 04/11/20: Monitor BP Appreciate Cardiology 04/12/20: Monitor closely Pain management 04/13/20: Gabapentin Oxycodone 04/14/20: Increase Gabapentin Oxycodone BM regimen to increase today may need supp 04/15/20: BM++ Monitor pain of right side 04/16/20: Increase dose of Neurontin Maintain aggressive rehab 04/17/20: BM regimen to include supp Q48 hrs Monitor pain Monitor BP 04/18/20: Increased Gabpentin some more today BM regimen 04/19/20: Manage incontinence Right arm and right leg pain management 04/20/20: Maintain pain control Incontinence management BM regimen 04/21/20: Suppository [id number] Monitor closely Pain control 04/22/20: Continue BM regimen Monitor right sided pain 04/23/20: BM regimen PT OT Incontinence care 04/24/20: Monitor BP Fall risk BM regimen 04/25/20: No med changes Pain controlled 04/26/2020: Pain management Bowel regimen with suppository every 48 hours Continue intensive therapy 04/27/2020: Aggressive therapy Incontinence care Pain control 04/28/20: Monitor closely Periarea powder Monitor pain Check labs in am (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
[2020-04-28] MEDS: SPIRONOLACTONE 25 MG (ALDACTONE) TAB PO SCH (10:22)
[2020-04-28] MEDS: ASPIRIN 81 MG CHEW (CHILDREN'S ASA) PO SCH (10:22)
[2020-04-28] MEDS: GABAPENTIN 400 MG (NEURONTIN) CAP PO SCH ×2 (10:22→21:12)
[2020-04-28] MEDS: APIXABAN 5 MG (ELIQUIS) TABLET PO SCH ×2 (10:22→21:12)
[2020-04-28] MEDS: BISOPROLOL 5 MG TAB (ZEBETA) PO SCH (10:22)
[2020-04-28] MEDS: DICLOFENAC 1% GEL 100 GM (VOLTAREN) TUBE TOP SCH ×4 (10:23→21:13)
[2020-04-28] MEDS: SENNA W/DOCUSATE (SENOKOT S) TABLET PO SCH ×2 (10:31→21:14)
[2020-04-28] MEDS: polyethylene glycoL POWDER 17 GM (MIRALAX) PACK PO SCH ×2 (10:31→21:14)
[2020-04-28] MEDS: DOCUSATE SODIUM 100 MG (COLACE) CAP PO SCH ×2 (10:31→21:14)
[2020-04-28 18:06] VITALS: BP 121/84
--- NOTE | 2020-04-28 19:12 | NUR ---
Bedside report received from LEIDY MARSHALL, assume care of pt
--- NOTE | 2020-04-28 21:12 | NUR ---
Pt refused Colace, Miralax & Senokot, took other meds well crushed in pudding, c/o rt leg & arm pain level 6/10 on numeric scale, oxyir 5mg crushed in pudding given
[2020-04-28] MEDS: MICONAZOLE 2% POWDER (DESENEX AF) 90 GM TOP SCH (21:13)
--- NOTE | 2020-04-28 22:00 | NUR ---
rates pain at 3/10 on numeric scale
--- NOTE | 2020-04-29 05:45 | PM&R Progress Note ---
Subjective HPI/CC On Admission Date Seen by Provider: Apr 29, 2020 Time Seen by Provider: 05:45 Subjective/Events-last exam 04/29/20: Patient reports no major issues No pain reported Pain meds are helpful 04/28/20: Periarea red so will start antifungal powder No pain reported otherwise Incontinence will require 14/12 nursing care along with severe deficit 04/27/2020: Incontinence of both bowel and bladder are limitations Denies any significant new issues Pain is pretty well controlled on the right side for flaccidity muscle spasms 04/26/2020: Patient denies any pain Incontinence requires nursing care 14/12 Pain is pretty well controlled Expressive aphasia makes it difficult to communicate 04/25/20: No major issues Pain controlled Participation with PT 04/24/20: Pt doing pretty well Bowels move after suppository every 48 hrs Decreasing pain medication Decreasing Cozaar due to hypotension per cardiology 04/23/20: BM after suppository every 48hrs Gabapentin BID seems to be working pretty well Using Oxycodone when Gabapentin is not enough No falls 04/22/20: No major issues Expressive aphasia continues Bowels moved yesterday after suppository given every 48 hours 04/21/20: Suppository today and BM Incontinent of B/B Pain improved Does not need to increase Gabapentin 04/20/20: BM yesterday Pain improved Sleepy today Doing better Incontinence : Improve right sided nerve pain Xanax and pain pill helps him BM after suppository Q 48 hours Incontinent of B/B 04/18/20: BM 04/17/20 Eliquis causes blurry vision per sister so will inquire with Dr Gibson regarding Xarelto Incontinent 04/17/20: Bowels not moving so will initiate Dulcolax suppository every 48hrs after laxati ves given and he is agreeable for that plan Denies any significant new issues Pain is getting much better with the Gabapentin twice daily and Oxycodone 04/16/20: Right-sided pain still so increased Gabapentin to 300 Mg BID Xanax will help too Oxycodone also helps 04/15/20: Gabapentin maintained Oxycodone maintained Confusion noted? 04/14/20: Monitoring BP Pain right side still present and will increase Gabapentin 04/13/20: Right arm and right leg pain and issue Oxycodone not really helping Nerve pain so will give Gabapentin 04/12/20: Severe pain on right side Oxycodone ordered Participating in therapies well No other pain Pt doing pretty well Expressive aphasia is an issue WBC is 12.4 CMP normal Consulting cardiology Overall doing very well Conferred with RN Checked meds and labs Reviewed therapy notes Review of Systems Genitourinary: Incontinence Focused Exam Lactate Level Objective Exam Vital Signs Vital Signs Date Time Temp Pulse Resp B/P (MAP) Pulse Ox O2 Delivery O2 Flow Rate FiO2 04/29/20 20:40 Room Air 04/29/20 16:00 36.3 80 16 102/75 (84) 97 Capillary Refill : Less Than 3 Seconds General Appearance: No Apparent Distress, WD/WN, Chronically ill HEENT: PERRL/EOMI, Normal ENT Inspection, Pharynx Normal Neck: Full Range of Motion, Normal Inspection, Non Tender, Supple, Carotid Bruit Respiratory: Chest Non Tender, Lungs Clear, Normal Breath Sounds, No Accessory Muscle Use, No Respiratory Distress Cardiovascular: Regular Rate, Rhythm, No Edema, No Gallop, No JVD, No Murmur, Normal Peripheral Pulses Gastrointestinal: Normal Bowel Sounds, No Organomegaly, No Pulsatile Mass, Non Tender, Soft Back: Normal Inspection, No CVA Tenderness, No Vertebral Tenderness Extremity: Normal Capillary Refill, Normal Inspection, Normal Range of Motion, Non Tender, No Calf Tenderness, No Pedal Edema Neurologic/Psychiatric: Alert, Normal Mood/Affect, Abnormal Gait, Aphasia, Depressed Affect, Disoriented, Motor Weakness (right sided flaccidity) Skin: Normal Color, Warm/Dry Lymphatic: No Adenopathy Results/Procedures Lab Laboratory Tests 04/29/20 06:10 Patient resulted labs reviewed. FIM Transfers Therapy Code Descriptions/Definitions Functional [place] Measure: 0=Not Assessed/NA 4=Minimal Assistance 1=Total Assistance 5=Supervision or Setup 2=Maximal Assistance 6=Modified [place] 3=Moderate Assistance 7=Complete IndependenceSCALE: Activities may be completed with or without assistive devices. 9-Pdylalpfjx-pplsjiz completes the activity by him/herself with no assistance from a helper. 5-Set-up or Clean-up Assistance-helper sets up or cleans up; patient completes activity. [place] assists only prior to or following the activity. 4-Supervision or Touching Assistance-helper provides verbal cues and/or touching/steadying and/or contact guard assistance as patient completes activity. Assistance may be provided throughout the activity or intermittently. 3-Partial/Moderate Assistance-helper does LESS THAN HALF the effort. [place] lifts, holds or supports trunk or limbs, but provides less than half the effort. 2-Substantial/Maximal Assistance-helper does MORE THAN HALF the effort. [place] lifts or holds trunk or limbs and provides more than half the effort. 1-Bafzgmfjt-aaeaix does ALL the effort. Patient does none of the effort to complete the activity. Or, the assistance of 2 or more helpers is required for the patient to complete the activity. If activity was not attempted, code reason: 7-Patient Refused. 9-Not Applicable-not attempted and the patient did not perform the activity before the current illness, exacerbation or injury. 10-Not Attempted due to Environmental Limitations-(lack of equipment, weather restraints, etc.). 88-Not Attempted due to Medical Conditions or Safety Concerns. Roll Left to Right (QC): 4 Sit to Lying (QC): 4 Sit to Stand (QC): 3 Chair/Dff-li-Nfkgb Xfer(QC): 3 Car Transfer (QC): 2 Gait Training Distance: 20'x3 Walk 10 feet (QC): 2 Walk 50 ft with 2 Turns(QC): 88 Walk 150 ft (QC): 88 Walking 10ft/uneven surface-QC: 88 Gait Persons Needed: 2 Gait Assistive Device: Handheld Assist (hallway rail at left hand) Wheelchair Training Does the Pt Use a Wheelchair?: Yes Wheel 50 ft with 2 turns (QC): 4 Wheel 150 ft (QC): 4 Type of Wheelchair: Manual Stair Training 1 Step (curb) (QC): 88 4 Steps (QC): 88 12 Steps (QC): 88 Balance Picking up an Object (QC): 88 ADL-Treatment Eating (QC): 6 (eating in bed this am with IND with modified diet.) Oral Hygiene (QC): 4 (Pt requires cues for opening new/ larger toothpaste. Pt is instructed to support with BLE adducted, sqeeze with this motion, and scrape from toothbrush. Pt completes with increased cues.) Bathing Location: L Arm, R Arm, L Upper Leg, R Upper Leg, Chest, Abdomen, Buttocks, Perineal Area Shower/Bathe Self (QC): 4 (SBA all tasks. ) Upper Body Dressing (QC): 3 (mod A this date) Lower Body Dressing (QC): 2 (max A threading BLE in bed this am. Pt able to bridge/ hike over hips with min A to R side.) On/Off Footwear (QC): 3 (s/u and min A for R shoe donning) Toileting Hygiene (QC): 7 Toilet Transfer (QC): 3 (mod A EOB to commode. Pt sits on commode with fair balance. 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 Defib in place Cardiomyopathy HTN Plan: Monitor dysphagia Cardiology consultation IRF protocol 04/11/20: Monitor BP Appreciate Cardiology 04/12/20: Monitor closely Pain management 04/13/20: Gabapentin Oxycodone 04/14/20: Increase Gabapentin Oxycodone BM regimen to increase today may need supp 04/15/20: BM++ Monitor pain of right side 04/16/20: Increase dose of Neurontin Maintain aggressive rehab 04/17/20: BM regimen to include supp Q48 hrs Monitor pain Monitor BP 04/18/20: Increased Gabpentin some more today BM regimen 04/19/20: Manage incontinence Right arm and right leg pain management 04/20/20: Maintain pain control Incontinence management BM regimen 04/21/20: Suppository [id number] Monitor closely Pain control 04/22/20: Continue BM regimen Monitor right sided pain 04/23/20: BM regimen PT OT Incontinence care 04/24/20: Monitor BP Fall risk BM regimen 04/25/20: No med changes Pain controlled 04/26/2020: Pain management Bowel regimen with suppository every 48 hours Continue intensive therapy 04/27/2020: Aggressive therapy Incontinence care Pain control 04/28/20: Monitor closely Periarea powder Monitor pain Check labs in am 04/29/20: Labs reviewed Monitor pain issues (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
[2020-04-29 06:02] VITALS: BP 106/67
[2020-04-29 06:49] LABS: ALBUMIN 3.5 GM/DL (3.2-4.5); CHLORIDE 107 MMOL/L (98-107); POTASSIUM 4.4 MMOL/L (3.6-5.0); SODIUM 142 MMOL/L (135-145)
[2020-04-29 06:50] LABS: CALCIUM 8.7 MG/DL (8.5-10.1)
[2020-04-29] MEDS: BISACODYL 10 MG SUPP (DULCOLAX) PR SCH (06:50)
[2020-04-29 06:51] LABS: GLUCOSE 84 MG/DL (70-105)
[2020-04-29 06:52] LABS: TOTAL PROTEIN 6.3 GM/DL (6.4-8.2)
[2020-04-29 06:53] LABS: BILIRUBIN,TOTAL 0.5 MG/DL (0.1-1.0); CARBON DIOXIDE 24 MMOL/L (21-32)
[2020-04-29 06:55] LABS: ALKALINE PHOSPHATASE 131 U/L (40-136); CREATININE SERUM 0.96 MG/DL (0.60-1.30); GFR ESTIMATED > 60
[2020-04-29 06:56] LABS: BUN/CREATININE RATIO 19
[2020-04-29 06:58] LABS: ALANINE AMINOTRANSFERASE 141 U/L (0-55); BASOPHILS % (AUTO) 0 % (0-10); EOSINOPHILS # (AUTO) 0.3 10^3/uL (0.0-0.3); EOSINOPHILS % (AUTO) 4 % (0-10); HEMATOCRIT 49 % (40-54); HEMOGLOBIN 15.6 g/dL (13.3-17.7); LYMPHOCYTES # (AUTO) 2.1 10^3/uL (1.0-4.0); LYMPHOCYTES % (AUTO) 27 % (12-44); MEAN CORPUSCULAR HEMOGLOBIN 29 pg (25-34); MEAN CORPUSCULAR HGB CONC 32 g/dL (32-36); MEAN CORPUSCULAR VOLUME 91 fL (80-99); MEAN PLATELET VOLUME 11.8 fL (9.0-12.2); MONOCYTES # (AUTO) 0.8 10^3/uL (0.0-1.0); MONOCYTES % (AUTO) 11 % (0-12); NEUTROPHILS # (AUTO) 4.5 10^3/uL (1.8-7.8); NEUTROPHILS % (AUTO) 58 % (42-75); PLATELET COUNT 168 10^3/uL (130-400); WHITE BLOOD COUNT 7.8 10^3/uL (4.3-11.0)
[2020-04-29] MEDS: MICONAZOLE 2% POWDER (DESENEX AF) 90 GM TOP SCH ×2 (08:19→20:41)
[2020-04-29] MEDS: ASPIRIN 81 MG CHEW (CHILDREN'S ASA) PO SCH (08:19)
[2020-04-29] MEDS: SPIRONOLACTONE 25 MG (ALDACTONE) TAB PO SCH (08:19)
[2020-04-29] MEDS: GABAPENTIN 400 MG (NEURONTIN) CAP PO SCH ×2 (08:19→20:34)
[2020-04-29] MEDS: BISOPROLOL 5 MG TAB (ZEBETA) PO SCH (08:19)
[2020-04-29] MEDS: APIXABAN 5 MG (ELIQUIS) TABLET PO SCH ×2 (08:19→20:34)
[2020-04-29] MEDS: DICLOFENAC 1% GEL 100 GM (VOLTAREN) TUBE TOP SCH ×4 (08:20→20:40)
[2020-04-29] MEDS: SENNA W/DOCUSATE (SENOKOT S) TABLET PO SCH ×2 (09:00→20:45)
[2020-04-29] MEDS: polyethylene glycoL POWDER 17 GM (MIRALAX) PACK PO SCH ×2 (09:00→20:45)
[2020-04-29] MEDS: DOCUSATE SODIUM 100 MG (COLACE) CAP PO SCH ×2 (09:00→20:45)
--- NOTE | 2020-04-29 09:01 | Physical Therapy Daily Note ---
PT Daily Note-Current Subjective PT OT co Rx with pt agreement to Rx. Pt. wants to shower. Pt expresses to nursing that he wants pain meds but does not express his pain is or a # rating of intensity Mental Status Patient Orientation: Non-Verbal/Aphasic Attachments: Other-See Comments (mask while out of room , RLE immoblizer for gait) Transfers SCALE: Activities may be completed with or without assistive devices. 6-Ilnxaydysl-ryirsgl completes the activity by him/herself with no assistance from a helper. 5-Set-up or Clean-up Assistance-helper sets up or cleans up; patient completes activity. [place] assists only prior to or following the activity. 4-Supervision or Touching Assistance-helper provides verbal cues and/or touching/steadying and/or contact guard assistance as patient completes activity. Assistance may be provided throughout the activity or intermittently. 3-Partial/Moderate Assistance-helper does LESS THAN HALF the effort. [place] lifts, holds or supports trunk or limbs, but provides less than half the effort. 2-Substantial/Maximal Assistance-helper does MORE THAN HALF the effort. [place] lifts or holds trunk or limbs and provides more than half the effort. 8-Syunrkrlh-yhnqzh does ALL the effort. Patient does none of the effort to complete the activity. Or, the assistance of 2 or more helpers is required for the patient to complete the activity. If activity was not attempted, code reason: 7-Patient Refused. 9-Not Applicable-not attempted and the patient did not perform the activity befo re the current illness, exacerbation or injury. 10-Not Attempted due to Environmental Limitations-(lack of equipment, weather re straints, etc.). 88-Not Attempted due to Medical Conditions or Safety Concerns. Sit to Stand (QC): 3 when pushing up from chair arms to stand pt requires mod to min assist, when pulling up with bar at shower or akers way rail pt. requires min assist Weight Bearing Full Weight Bearing Full Weight Bearing Gait Training Does the Patient Walk?: Yes Walk 10 feet (QC): 3 Gait Persons Needed: 1 (plus w/c back up) gait at rail in akers with w/c behind pt. , knee immoblizer donned with max assist, pt. required mod to max assist to advance and place RLE each step , approx 15 ft x 2 w/c behind pt. Wheelchair Training Does the Pt Use a Wheelchair?: Yes Wheel 50 ft with 2 turns (QC): 4 Wheel 150 ft (QC): 4 Type of Wheelchair: Manual needs reminded to brake w/c as well as to handle RLE on off foot rest etc , foot rest managed by therapists as well Treatments PT OT co Rx for showering, dressing , w/c mob and gait . OT addressing UE management for all tasks as well as use of dressing stick . PT instructing for sit to stands and gait and TRFs. Pt TRFs well toward left but requires min assist, TRFs to right require mod assist as pt cannot reach for stability with RUE or take forward initiating step with R foot Assessment Current Status: Good Progress continues dependent for all safe mobility and ADLs PT Short Term Goals Short Term Goals Time Frame: Apr 18, 2020 Roll Left & Right: 3 Sit to lyin Lying to sitting on side of be: 3 Sit to stand: 3 Chair/jej-ym-oxpcg transfer: 3 PT Lifter Goals Lifter Goals PT Long-Term Goals Time Frame: May 02, 2020 Roll Left & Right (QC): 3 (Zoya) Sit to Lying (QC): 3 (Zoya) Lying-Sitting on Side/Bed(QC): 3 (Zoya) Sit to Stand (QC): 3 (Zoya) Chair/Fsq-sv-Yxrus Xfer(QC): 3 (Zoya) Toilet Transfer (QC): 3 (Zoya) Car Transfer (QC): 3 (Zoya) Does the Patient Walk: No and Walking Goal NOT indicated Walk 10 feet (QC): 88 Walk 50ft with 2 Turns (QC): 88 Walk 150 ft (QC): 88 Walking 10ft on Uneven Surface: 88 1 Step (curb) (QC): 88 4 Steps (QC): 88 12 Steps (QC): 88 Picking up an Object (QC): 88 Wheel 50 feet with 2 turns (QC: 4 Wheel 150 feet: 4 PT Plan Treatment/Plan Treatment Plan: Continue Plan of Care Treatment Plan: Bed Mobility, Education, Functional Activity [place], Functional Strength, Group Therapy, Gait, Safety, Therapeutic Exercise, Transfers Treatment Duration: May 01, 2020 Frequency: At least 5 of 7 days/Wk (IRF) Estimated Hrs Per Day: 1.5 hours per day Patient and/or Family Agrees t: Yes Safety Risks/Education Patient Education: Gait Training, Transfer Techniques, Correct Positioning, W/C Management, Disease Process, Safety Issues Teaching Recipient: Patient Teaching Methods: Demonstration, Discussion Response to Teaching: Verbalize Understanding, Return Demonstration, Reinforcement Needed Time/GCodes Time In: 800 Time Out: 900 Total Billed Treatment Time: 60 Total Billed Treatment 1,FA35m,GT10m,WC15m ZAIRA GALEANA INORGANIC CHEMICAL TECHNICIAN Apr 29, 2020 09:01
--- NOTE | 2020-04-29 09:15 | Occupational Ther Daily Note ---
OT Current Status-Daily Note Subjective Pt alert in bed this am. Per nursing, has already had BM. Pt agrees to tx. Pt denies pain. OT/ PT co-treat with OT focusing on ADLs, UE movement, sequencing/ problem solving and sitting balance while PT addresses fx transfers, ambulation, LE movement/ balance. Co-treat [id number] OT individual tx: [id number] ADL-Treatment Therapy Code Descriptions/Definitions Functional [place] Measure: 0=Not Assessed/NA 4=Minimal Assistance 1=Total Assistance 5=Supervision or Setup 2=Maximal Assistance 6=Modified [place] 3=Moderate Assistance 7=Complete IndependenceSCALE: Activities may be completed with or without assistive devices. 4-Npdghessar-xwpdlow completes the activity by him/herself with no assistance from a helper. 5-Set-up or Clean-up Assistance-helper sets up or cleans up; patient completes activity. [place] assists only prior to or following the activity. 4-Supervision or Touching Assistance-helper provides verbal cues and/or touching/steadying and/or contact guard assistance as patient completes activity. Assistance may be provided throughout the activity or intermittently. 3-Partial/Moderate Assistance-helper does LESS THAN HALF the effort. [place] lifts, holds or supports trunk or limbs, but provides less than half the effort. 2-Substantial/Maximal Assistance-helper does MORE THAN HALF the effort. [place] lifts or holds trunk or limbs and provides more than half the effort. 5-Mrezinazs-sfiqli does ALL the effort. Patient does none of the effort to complete the activity. Or, the assistance of 2 or more helpers is required for the patient to complete the activity. If activity was not attempted, code reason: 7-Patient Refused. 9-Not Applicable-not attempted and the patient did not perform the activity before the current illness, exacerbation or injury. 10-Not Attempted due to Environmental Limitations-(lack of equipment, weather restraints, etc.). 88-Not Attempted due to Medical Conditions or Safety Concerns. Oral Hygiene (QC): 4 (SBA/ cues for process with use of BLE for supporting toothpaste/ squeezing ) Bathing Location: L Arm, R Arm, L Upper Leg, R Upper Leg, L Lower Leg (including foot), R Lower Leg (including foot), Chest, Abdomen, Buttocks, Perineal Area Shower/Bathe Self (QC): 4 (SBA. Pt completes all tasks on sc.) Upper Body Dressing (QC): 3 (min A R side assist.) Lower Body Dressing (QC): 2 (max A- OT threads RLE and hikes up in stance. Pt able to assist in L side and in stance.) On/Off Footwear: 3 (min A- socks, pt able to complete shoes with min A (support of R leg on leg)) Other Treatment OT/ PT co-treat with OT focusing on ADLs, UE movement, sequencing/ problem solving and sitting balance while PT addresses fx transfers, ambulation, LE movement/ balance. Co-treat [id number] OT individual tx: [id number] Pt bed mob with SBA. Pt transfers to w/c placed on L side with min A. Pt propels self to shower room, completing sit to stand with CGA and Ax2 at times in stance. Pt completes all showering on sc, dresses in w/c as outlined. Pt stands at L sided hand rail, PT dons R knee brace. Pt completes 2 rounds of ambulation with PT addressing LE movement, OT addressing problem solving/ RUE placement in sling/ following with w/c. Pt returns to room. SPT to L side with CGA. Individual tx: oral care as outlined in chair. Pt educated on AAROM of RUE. Completes 10 reps of shoulder flexion, shoulder horizontal ab/ adduction. Manual massage completed to release tension to tight muscles. Pt left in recliner with all needs met, call light in reach, pt's chair alarm on/ LE's elevated. Denies needs. Education OT Patient Education: Correct positioning, Exercise program, Home exercise program, Modified ADL techniques, Progress toward Goal/Update tx plan, Purpose of tx/functional activities, Safety issues, Transfer techniques, Use of adapted equipment Teaching Recipient: Patient Teaching Methods: Demonstration, Discussion Response to Teaching: Verbalize Understanding, Return Demonstration, Reinforcement Needed OT Short Term Goals Short Term Goals Eatin Oral hygiene: 5 Toileting hygiene: 2 Shower/bathe self: 2 Upper body dressin Lower body dressin Putting on/taking off footwear: 2 OT Land Reclamation Specialist Goals Land Reclamation Specialist Goals Time Frame: Apr 24, 2020 Eating (QC): 6 Oral Hygiene (QC): 6 Toileting Hygiene (QC): 3 Shower/Bathe Self (QC): 3 Upper Body Dressing (QC): 6 Lower Body Dressing (QC): 3 On/Off Footwear (QC): 6 Additional Goals: 1-Demonstrate ADL Tasks, 2-Verbalize Understanding, 3- ImproveStrength/[place] 1=Demonstrate adherence to instructed precautions during ADL tasks. 2=Patient will verbalize/demonstrate understanding of assistive devices/modifications for ADL. 3=Patient will improve strength/tolerance for activity to enable patient to perform ADL's. OT Education/Plan Problem List/Assessment Assessment: Decreased Activ Tolerance, Decreased UE Strength, Dependent Transfe rs, Impaired Bed Mobility, Impaired Coordination, Impaired Funct Balance, Impaired I ADL's, Impaired Self-Care Skills, Restricted Funct UE ROM, Visual- Perceptual Deficit Discharge Recommendations Plan/Recommendations: Continue POC Therapy Discharge Recommendati: 24 Hour Supervision, Post Acute OT Treatment Plan/Plan of Care Treatment,Training & Education: Yes Patient would benefit from OT for education, treatment and training to promote independence in ADL's, mobility, safety and/or upper extremity function for ADL's. Plan of Care: ADL Retraining, Caregiver Training, Concurrent Therapy, Functional Mobility, Group Exercise/Act as Ind, Orthotic Fitting/Training, UE Funct Exercise/Act, UE Neuromus Re-Ed/Coord, Visual/Perceptual Retrain, W/C Management Training Treatment Duration: Apr 24, 2020 Frequency: At least 5 of 7 days/Wk (IRF) Estimated Hrs Per Day: 1.5 hours per day Agreement: Yes Rehab Potential: Guarded Time/GCodes Start Time: 08:00 Stop Time: 09:15 Total Time Billed (hr/min): 75 Billed Treatment Time OT/ PT co-treat with OT focusing on ADLs, UE movement, sequencing/ problem solving and sitting balance while PT addresses fx transfers, ambulation, LE movement/ balance. Co-treat [id number] OT individual tx: [id number] 1, ADL 4 (60), EX (15)= 75 FATIMAH KERNS OTR Apr 29, 2020 09:15
--- NOTE | 2020-04-29 10:20 | Cardiology Progress Note ---
Subjective Date Seen by Provider: Apr 29, 2020 Time Seen by Provider: 10:18 Subjective/Events-last exam Patient is with PT/OT, no new complaints. Denies any chest pain or dyspnea. Review of Systems General: No Chills, No Night Sweats, No Fatigue, No Malaise, No Appetite, No Other HEENT: No Head Aches, No Visual Changes, No Eye Pain, No Ear Pain, No Dysphasia, No Sinus Congestion, No Post Nasal Drip, No Sore Throat, No Other Pulmonary: No Dyspnea, No Cough, No Pleuritic Chest Pain, No Other Cardiovascular: No: Chest Pain, Palpitations, Orthopnea, Paroxysmal Noc. Dyspnea, Edema, Lt Headedness, Other Objective-Cardiology Exam Last Set of Vital Signs Vital Signs 04/29/20 04/29/20 06:02 09:00 Temp 36.0 Pulse 82 Resp 20 B/P (MAP) 106/67 (80) Pulse Ox 97 O2 Delivery Room Air Capillary Refill : Less Than 3 Seconds I&O Intake and Output 04/29/20 00:00 Intake Total 1290 ml Balance 1290 ml Intake Oral 1290 ml # Voids 14 # Bowel Movements 1 General: Alert, Oriented X3, Cooperative HEENT: Atraumatic, PERRLA Neck: Supple, No JVD, No Thyromegaly Lungs: Clear to Auscultation, Normal Air Movement Heart: Regular Rate, Normal S1, Normal S2, No Murmurs Abdomen: Normal Bowel Sounds, Soft, No Tenderness, No Hepatosplenomegaly, No Masses Extremities: No Edema Skin: No Rashes, No Significant Lesion Neuro: Other (right side hemiparesis) Psych/Mental Status: Mental Status NL, Mood NL Results Lab Laboratory Tests 04/29/20 06:10 A/P-Cardiology Admission Diagnosis CVA Cardiomyopathy Atrial fibrillation Assessment/Plan Acute CVA, status post mechanical aspiration done at . Still has residual deficits, right sided weakness. Aggressive inpatient rehabilitation. Hx of previous CVA in 2009 and 2014 Cardiomyopathy, EF 10-15% per 2D Echo done at on 03/30/[address]. [address] [facility] ICD and AV node ablation on 04/02/[address] Witt at . Maintained beta evan. Unable to tolerate ARB d/t hypotension Atrial fibrillation with rapid ventricular rate, continue on current medication. On Eliquis. Recent AV node ablation Hypertension, currently borderline hypotensive. Continue to monitor. Patient was seen and evaluated with [place], examination performed, management plan was discussed, agree with the current scribed note, I made few changes to the note using Italic font Patient was seen and evaluated, sitting comfortably, no new complaint Events during this hospitalization reviewed, continue to monitor, no changes Clinical Quality Measures DVT/VTE Risk/Contraindication: Risk Factor Score Per Nursin RFS Level Per Nursing on Admit: 4+=Very High ITALIA MORFIN Apr 29, 2020 10:20 DEVON CHAN MD Apr 29, 2020 13:26
--- NOTE | 2020-04-29 12:14 | Speech Therapy Daily Note ---
Speech Daily Progress Note Subjective Date Seen by Provider: Apr 29, 2020 Time Seen by Provider: 00:30 Patient was sitting in his recliner resting when I entered his room. He was happy that he had a shower this am. Objective Patient completed a series of OME for safer swallow for food level at 80% with minimal visual cuing. Patient is progressing well with the current modified diet level. Assessment Assessment Current Status: Good Progress Treatment Plan Continue Plan of Care Speech Short Term Goals Short Term Goals Short Term Goals 1) The patient will complete OME for improved speech production at each session with 80% or greater accuracy. 2) The patient will complete word finding tasks with 80% or greater accuracy. 3) The patient will complete expressive language tasks 80% or greater accuracy. 4) The patient will tolerate least restrictive diet level without s/s of aspiration at 80% or greater accuracy. 5) The patient will utilize compensatory strategies as trained 80% or greater accuracy. Speech Piano Mechanic Apprentice Goals Piano Mechanic Apprentice Goals Patient will improve cognitive-communication abilities for completion of daily needs with minimal assist. Patient will maintain adequate nutrition/hydration via safe effective swallow function. Speech-Plan Patient/Family Goals Patient/Family Goals: Patient will be discharging to another facility once the details have been clarified. 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
--- NOTE | 2020-04-29 13:34 | Physical Therapy Daily Note ---
PT Daily Note-Current Subjective Pt. in bed agrees to exercise. Transfers SCALE: Activities may be completed with or without assistive devices. 7-Zxxvhinvbe-lngmwsm completes the activity by him/herself with no assistance from a helper. 5-Set-up or Clean-up Assistance-helper sets up or cleans up; patient completes a ctivity. [place] assists only prior to or following the activity. 4-Supervision or Touching Assistance-helper provides verbal cues and/or touching/steadying and/or contact guard assistance as patient completes activity. Assistance may be provided throughout the activity or intermittently. 3-Partial/Moderate Assistance-helper does LESS THAN HALF the effort. [place] lifts, holds or supports trunk or limbs, but provides less than half the effort. 2-Substantial/Maximal Assistance-helper does MORE THAN HALF the effort. [place] lifts or holds trunk or limbs and provides more than half the effort. 4-Jlwcthorw-bbotnt does ALL the effort. Patient does none of the effort to complete the activity. Or, the assistance of 2 or more helpers is required for the patient to complete the activity. If activity was not attempted, code reason: 7-Patient Refused. 9-Not Applicable-not attempted and the patient did not perform the activity before the current illness, exacerbation or injury. 10-Not Attempted due to Environmental Limitations-(lack of equipment, weather restraints, etc.). 88-Not Attempted due to Medical Conditions or Safety Concerns. Weight Bearing Full Weight Bearing Full Weight Bearing Exercises Supine Ex: Bridging, Ankle pumps (R HC stretch), Quad Set, Rolling, Glut sets, Heel Slides (assisted right), Scooting (up in bed), Straight leg raise (assisted right), Hip abd/add (assisted right) Supine Reps: 10 (x2) hooklying right hip int ext rotation with resistance, mass ext R LE all x 12 Assessment Current Status: Good Progress understood direction and responded well PT Short Term Goals Short Term Goals Time Frame: Apr 18, 2020 Roll Left & Right: 3 Sit to lyin Lying to sitting on side of be: 3 Sit to stand: 3 Chair/gmq-sl-dhawz transfer: 3 PT Nursing Home Goals Revising Clerk Goals PT Nursing Home Goals Time Frame: May 02, 2020 Roll Left & Right (QC): 3 (Zoya) Sit to Lying (QC): 3 (Zoya) Lying-Sitting on Side/Bed(QC): 3 (Zoya) Sit to Stand (QC): 3 (Zoya) Chair/Tuo-wz-Hxckv Xfer(QC): 3 (Zoya) Toilet Transfer (QC): 3 (Zoya) Car Transfer (QC): 3 (Zoya) Does the Patient Walk: No and Walking Goal NOT indicated Walk 10 feet (QC): 88 Walk 50ft with 2 Turns (QC): 88 Walk 150 ft (QC): 88 Walking 10ft on Uneven Surface: 88 1 Step (curb) (QC): 88 4 Steps (QC): 88 12 Steps (QC): 88 Picking up an Object (QC): 88 Wheel 50 feet with 2 turns (QC: 4 Wheel 150 feet: 4 PT Plan Treatment/Plan Treatment Plan: Continue Plan of Care Treatment Plan: Bed Mobility, Education, Functional Activity [place], Functional Strength, Group Therapy, Gait, Safety, Therapeutic Exercise, Transfers Treatment Duration: May 01, 2020 Frequency: At least 5 of 7 days/Wk (IRF) Estimated Hrs Per Day: 1.5 hours per day Patient and/or Family Agrees t: Yes (, ,) Safety Risks/Education Patient Education: Correct Positioning Teaching Recipient: Patient Response to Teaching: Verbalize Understanding, Return Demonstration, Reinforcement Needed Time/GCodes Time In: 1300 Time Out: 1315 Total Billed Treatment Time: 15 Total Billed Treatment 1,EX15m ZAIRA GALEANA PROMOTIONAL MODEL Apr 29, 2020 13:34
[2020-04-29 16:00] VITALS: BP 102/75
--- NOTE | 2020-04-29 19:07 | NUR ---
Bedside report received from ROMANA MARSHALL, assume care of pt
--- NOTE | 2020-04-29 20:34 | NUR ---
Pt refused Colace, Miralax & Senokot, c/o pain to rt side level 6/10 on numeric scale, Oxyir 5mg crushed in pudding given
--- NOTE | 2020-04-29 21:20 | NUR ---
rates pain at 3/10 on numeric scale
[2020-04-30 05:50] VITALS: BP 114/75
[2020-04-30] MEDS: SPIRONOLACTONE 25 MG (ALDACTONE) TAB PO SCH (08:04)
[2020-04-30] MEDS: APIXABAN 5 MG (ELIQUIS) TABLET PO SCH ×2 (08:04→20:52)
[2020-04-30] MEDS: SENNA W/DOCUSATE (SENOKOT S) TABLET PO SCH ×2 (08:04→21:05)
[2020-04-30] MEDS: BISOPROLOL 5 MG TAB (ZEBETA) PO SCH (08:04)
[2020-04-30] MEDS: GABAPENTIN 400 MG (NEURONTIN) CAP PO SCH ×2 (08:04→20:52)
[2020-04-30] MEDS: ASPIRIN 81 MG CHEW (CHILDREN'S ASA) PO SCH (08:04)
[2020-04-30] MEDS: DICLOFENAC 1% GEL 100 GM (VOLTAREN) TUBE TOP SCH ×4 (08:05→20:58)
[2020-04-30] MEDS: MICONAZOLE 2% POWDER (DESENEX AF) 90 GM TOP SCH ×2 (08:05→20:58)
--- NOTE | 2020-04-30 08:14 | Cardiology Progress Note ---
Subjective Date Seen by Provider: Apr 30, 2020 Time Seen by Provider: 08:14 Subjective/Events-last exam No new complaints, denies any chest pain or dyspnea. Review of Systems General: No Chills, No Night Sweats, No Fatigue, No Malaise, No Appetite, No Other HEENT: No Head Aches, No Visual Changes, No Eye Pain, No Ear Pain, No Dysphasia, No Sinus Congestion, No Post Nasal Drip, No Sore Throat, No Other Pulmonary: No Dyspnea, No Cough, No Pleuritic Chest Pain, No Other Cardiovascular: No: Chest Pain, Palpitations, Orthopnea, Paroxysmal Noc. Dyspnea, Edema, Lt Headedness, Other Objective-Cardiology Exam Last Set of Vital Signs Vital Signs 04/30/20 04/30/20 05:50 09:00 Temp 36.2 Pulse 80 Resp 16 B/P (MAP) 114/75 (88) Pulse Ox 98 O2 Delivery Room Air Capillary Refill : Less Than 3 Seconds I&O Intake and Output 04/30/20 00:00 Intake Total 920 ml Balance 920 ml Intake Oral 920 ml # Voids 1 # Urine Diapers 5 General: Alert, Oriented X3, Cooperative HEENT: Atraumatic, PERRLA Neck: Supple, No JVD, No Thyromegaly Lungs: Clear to Auscultation, Normal Air Movement Heart: Regular Rate, Normal S1, Normal S2, No Murmurs Abdomen: Normal Bowel Sounds, Soft, No Tenderness, No Hepatosplenomegaly, No Masses Extremities: No Edema Skin: No Rashes, No Significant Lesion Neuro: Other (right side hemiparesis) Psych/Mental Status: Mental Status NL, Mood NL A/P-Cardiology Admission Diagnosis CVA Cardiomyopathy Atrial fibrillation Assessment/Plan Acute CVA March 2020, status post mechanical aspiration done at . Still has residual deficits, right sided weakness. Aggressive inpatient rehabilitation. Hx of previous CVA in 2009 and 2014 Cardiomyopathy, EF 10-15% per 2D Echo done at on 03/30/[address]. [address] [facility] ICD and AV node ablation on 04/02/[address] Witt at . Maintained beta evan. Unable to tolerate ARB d/t hypotension Atrial fibrillation with rapid ventricular rate, continue on current medication. On Eliquis. Recent AV node ablation done at Hypertension, currently borderline hypotensive. Continue to monitor. Patient was seen and evaluated with [place], examination performed, management plan was discussed, agree with the current scribed note, I made few changes to the note using Italic font Patient was seen at bedside receiving physical therapy blood pressure is better, continue to monitor No change in current medication Clinical Quality Measures DVT/VTE Risk/Contraindication: Risk Factor Score Per Nursin RFS Level Per Nursing on Admit: 4+=Very High ITALIA MORFIN Apr 30, 2020 08:14 DEVON CHAN MD Apr 30, 2020 11:51
--- NOTE | 2020-04-30 09:05 | Physical Therapy Daily Note ---
PT Daily Note-Current Subjective Pt sitting in [facility] upon arrival. Pt agrees to PT/OT co-treat. Pain Location: Right Location Body Site: Thigh Pain Description: Ache Comment: Pt reports ache with standing but doesn't rate. Mental Status Patient Orientation: Person, Place Transfers SCALE: Activities may be completed with or without assistive devices. 2-Sjhrbfpujv-agvxktb completes the activity by him/herself with no assistance from a helper. 5-Set-up or Clean-up Assistance-helper sets up or cleans up; patient completes activity. [place] assists only prior to or following the activity. 4-Supervision or Touching Assistance-helper provides verbal cues and/or touch ing/steadying and/or contact guard assistance as patient completes activity. Assistance may be provided throughout the activity or intermittently. 3-Partial/Moderate Assistance-helper does LESS THAN HALF the effort. [place] lifts, holds or supports trunk or limbs, but provides less than half the effort. 2-Substantial/Maximal Assistance-helper does MORE THAN HALF the effort. [place] lifts or holds trunk or limbs and provides more than half the effort. 3-Pralvwgej-kiewoa does ALL the effort. Patient does none of the effort to complete the activity. Or, the assistance of 2 or more helpers is required for the patient to complete the activity. If activity was not attempted, code reason: 7-Patient Refused. 9-Not Applicable-not attempted and the patient did not perform the activity before the current illness, exacerbation or injury. 10-Not Attempted due to Environmental Limitations-(lack of equipment, weather restraints, etc.). 88-Not Attempted due to Medical Conditions or Safety Concerns. Lying to Sitting/Side of Bed(Q: 3 Sit to Stand (QC): 4 Chair/Dst-nc-Xijmw Xfer(QC): 4 Weight Bearing Full Weight Bearing Full Weight Bearing Wheelchair Training Does the Pt Use a Wheelchair?: Yes Wheel 50 ft with 2 turns (QC): 5 Wheel 150 ft (QC): 5 Type of Wheelchair: Manual Exercises Supine Ex: Quad Set Standing: Sit to Stand, Weight shifts Treatments OT addresses ADLs, UE movement, sitting balance, reaching tasks, fx activity tolerance as PT addresses LE movement/ strength, gross motor movements, fx transfers, standing balance. Pt propels self to gym with SBA. Pt sit to stand/ SPT to EOM with min A. Completes sitting balance/ strengthening tasks by reaching in all planes with noted decreased balance to R side leaning requiring SBA. Pt completes lateral leans to each elbow with CGA-SBA 10x. Pt completes modified sit-ups 3 sets of 10 with LLE raised for increased difficulty/ balance. Pt stands at parallel bars 2x, addressing fx stance/ balance/ reaction with OT addressing UE movement/ scanning and PT addressing RLE/ stance. Pt is encouraged that he has made increased strides, pt states, "I don't think so." OT/ PT address many areas of self care and fx activity and pt agrees he has made progress. Pt fatigued end of session, requesting bed. SPT to weak side with mod A. Pt reaches sit to supine with min A. All needs met, call light in reach, denies needing new brief. Assessment Current Status: Good Progress Pt is gaining strength and core control with dynamic sitting and standing act ivities. PT Short Term Goals Short Term Goals Time Frame: Apr 18, 2020 Roll Left & Right: 3 Sit to lyin Lying to sitting on side of be: 3 Sit to stand: 3 Chair/epz-bd-dorej transfer: 3 PT Nursing Home Goals Nursing Home Goals PT Nursing Home Goals Time Frame: May 02, 2020 Roll Left & Right (QC): 3 (Zoya) Sit to Lying (QC): 3 (Zoya) Lying-Sitting on Side/Bed(QC): 3 (Zoya) Sit to Stand (QC): 3 (Zoya) Chair/Nji-zp-Mepvn Xfer(QC): 3 (Zoya) Toilet Transfer (QC): 3 (Zoya) Car Transfer (QC): 3 (Zoya) Does the Patient Walk: No and Walking Goal NOT indicated Walk 10 feet (QC): 88 Walk 50ft with 2 Turns (QC): 88 Walk 150 ft (QC): 88 Walking 10ft on Uneven Surface: 88 1 Step (curb) (QC): 88 4 Steps (QC): 88 12 Steps (QC): 88 Picking up an Object (QC): 88 Wheel 50 feet with 2 turns (QC: 4 Wheel 150 feet: 4 PT Plan Problem List Problem List: Activity Tolerance, Balance, Transfer Treatment/Plan Treatment Plan: Continue Plan of Care Treatment Plan: Bed Mobility, Education, Functional Activity [place], Functional Strength, Group Therapy, Gait, Safety, Therapeutic Exercise, Transfers Treatment Duration: May 01, 2020 Frequency: At least 5 of 7 days/Wk (IRF) Estimated Hrs Per Day: 1.5 hours per day Patient and/or Family Agrees t: Yes (, ,) Safety Risks/Education Patient Education: Transfer Techniques, Correct Positioning, W/C Management, Safety Issues Teaching Recipient: Patient Teaching Methods: Demonstration, Discussion Response to Teaching: Verbalize Understanding Time/GCodes Time In: 800 Time Out: 900 Total Billed Treatment Time: 60 Total Billed Treatment 1, [facility] (15m), FA x3 (45m) Co-treat w/OT for 60m CATALINO CAMPBELL BEEKEEPER FARMER Apr 30, 2020 09:05
--- NOTE | 2020-04-30 09:45 | Occupational Ther Daily Note ---
OT Current Status-Daily Note Subjective Pt alert in bed this am. Pt agrees to tx. OT individual tx: [id number] OT/ PT co-treat: [id number] OT addresses ADLs, UE movement, sitting balance, reaching tasks, fx activity tolerance as PT addresses LE movement/ strength, gross motor movements, fx transfers, standing balance. ADL-Treatment Therapy Code Descriptions/Definitions Functional [place] Measure: 0=Not Assessed/NA 4=Minimal Assistance 1=Total Assistance 5=Supervision or Setup 2=Maximal Assistance 6=Modified [place] 3=Moderate Assistance 7=Complete IndependenceSCALE: Activities may be completed with or without assistive devices. 2-Uppedpnbsm-lmcnxvd completes the activity by him/herself with no assistance from a helper. 5-Set-up or Clean-up Assistance-helper sets up or cleans up; patient completes activity. [place] assists only prior to or following the activity. 4-Supervision or Touching Assistance-helper provides verbal cues and/or touching/steadying and/or contact guard assistance as patient completes activity. Assistance may be provided throughout the activity or intermittently. 3-Partial/Moderate Assistance-helper does LESS THAN HALF the effort. [place] lifts, holds or supports trunk or limbs, but provides less than half the effort. 2-Substantial/Maximal Assistance-helper does MORE THAN HALF the effort. [place] lifts or holds trunk or limbs and provides more than half the effort. 0-Fobxoibfa-czlynz does ALL the effort. Patient does none of the effort to complete the activity. Or, the assistance of 2 or more helpers is required for the patient to complete the activity. If activity was not attempted, code reason: 7-Patient Refused. 9-Not Applicable-not attempted and the patient did not perform the activity before the current illness, exacerbation or injury. 10-Not Attempted due to Environmental Limitations-(lack of equipment, weather restraints, etc.). 88-Not Attempted due to Medical Conditions or Safety Concerns. Eating (QC): 6 Oral Hygiene (QC): 6 (IND in w/c in front of sink, no cues.) Upper Body Dressing (QC): 3 (min A in w/c.) Lower Body Dressing (QC): 3 (min A (pt threads BLE though requires OT to support RLE during hike/ bridging in bed. ) On/Off Footwear: 5 (s/u shoes.) Toileting Hygiene (QC): 7 Other Treatment OT individual tx: [id number] OT/ PT co-treat: [id number] OT addresses ADLs, UE movement, sitting balance, reaching tasks, fx activity tolerance as PT addresses LE movement/ strength, gross motor movements, fx transfers, standing balance. Pt completes pant donning in bed. Completes bed mob with SBA to EOB. Sit to stand/ transfer with mod A to w/c. Pt completes shirt doffing IND and shirt donning min A. Pt propels w/c to bathroom to complete oral care. Pt propels self to gym with SBA. Pt sit to stand/ SPT to EOM with min A. Completes sitting balance/ strengthening tasks by reaching in all planes with noted decreased balance to R side leaning requiring SBA. Pt completes lateral leans to each elbow with CGA-SBA 10x. Pt completes modified sit-ups 3 sets of 10 with LLE raised for increased difficulty/ balance. Pt stands at parallel bars 2x, addressing fx stance/ balance/ reaction with OT addressing UE movement/ scanning and PT addressing RLE/ stance. Pt is encouraged that he has made increa sed strides, pt states, "I don't think so." OT/ PT address many areas of self care and fx activity and pt agrees he has made progress. Pt fatigued end of session, requesting bed. SPT to weak side with mod A. Pt reaches sit to supine with min A. All needs met, call light in reach, denies needing new brief. Education OT Patient Education: Correct positioning, Exercise program, Home exercise program, Modified ADL techniques, Progress toward Goal/Update tx plan, Purpose of tx/functional activities, Safety issues, Transfer techniques, W/C management Teaching Recipient: Patient Teaching Methods: Demonstration, Discussion Response to Teaching: Verbalize Understanding, Return Demonstration OT Short Term Goals Short Term Goals Eatin Oral hygiene: 5 Toileting hygiene: 2 Shower/bathe self: 2 Upper body dressin Lower body dressin Putting on/taking off footwear: 2 OT Snf Goals Hot Stick Worker Goals Time Frame: Apr 24, 2020 Eating (QC): 6 Oral Hygiene (QC): 6 Toileting Hygiene (QC): 3 Shower/Bathe Self (QC): 3 Upper Body Dressing (QC): 6 Lower Body Dressing (QC): 3 On/Off Footwear (QC): 6 Additional Goals: 1-Demonstrate ADL Tasks, 2-Verbalize Understanding, 3- ImproveStrength/[place] 1=Demonstrate adherence to instructed precautions during ADL tasks. 2=Patient will verbalize/demonstrate understanding of assistive devices/modifications for ADL. 3=Patient will improve strength/tolerance for activity to enable patient to perform ADL's. OT Education/Plan Problem List/Assessment Assessment: Decreased Activ Tolerance, Decreased UE Strength, Dependent Transfers, Impaired Bed Mobility, Impaired Coordination, Impaired Funct Balance, Impaired I ADL's, Impaired Self-Care Skills, Restricted Funct UE ROM, Visual- Perceptual Deficit Discharge Recommendations Plan/Recommendations: Continue POC Therapy Discharge Recommendati: 24 Hour Supervision, Post Acute OT Treatment Plan/Plan of Care Treatment,Training & Education: Yes Patient would benefit from OT for education, treatment and training to promote independence in ADL's, mobility, safety and/or upper extremity function for ADL's. Plan of Care: ADL Retraining, Caregiver Training, Concurrent Therapy, Functional Mobility, Group Exercise/Act as Ind, Orthotic Fitting/Training, UE Funct Exercise/Act, UE Neuromus Re-Ed/Coord, Visual/Perceptual Retrain, W/C Management Training Treatment Duration: Apr 24, 2020 Frequency: At least 5 of 7 days/Wk (IRF) Estimated Hrs Per Day: 1.5 hours per day Agreement: Yes Rehab Potential: Guarded Time/GCodes Start Time: 07:45 Stop Time: 09:00 Total Time Billed (hr/min): 75 Billed Treatment Time OT individual tx: [id number] OT/ PT co-treat: [id number] OT addresses ADLs, UE movement, sitting balance, reaching tasks, fx activity tolerance as PT addresses LE movement/ strength, gross motor movements, fx transfers, standing balance. 1, ADL 2 (30), NM 2 (30), EX (15)= 75 FATIMAH KERNS OTR Apr 30, 2020 09:45
[2020-04-30] MEDS: DOCUSATE SODIUM 100 MG (COLACE) CAP PO SCH ×2 (09:56→21:04)
[2020-04-30] MEDS: polyethylene glycoL POWDER 17 GM (MIRALAX) PACK PO SCH ×2 (09:56→21:05)
--- NOTE | 2020-04-30 10:12 | PM&R Progress Note ---
Subjective HPI/CC On Admission Date Seen by Provider: Apr 30, 2020 Time Seen by Provider: 10:30 Subjective/Events-last exam 04/30/20: No major changes Laxatives were refused and he is having a BM every other day without the suppository Denies any significant new issues 04/29/20: Patient reports no major issues No pain reported Pain meds are helpful 04/28/20: Periarea red so will start antifungal powder No pain reported otherwise Incontinence will require 14/12 nursing care along with severe deficit 04/27/2020: Incontinence of both bowel and bladder are limitations Denies any significant new issues Pain is pretty well controlled on the right side for flaccidity muscle spasms 04/26/2020: Patient denies any pain Incontinence requires nursing care 14/12 Pain is pretty well controlled Expressive aphasia makes it difficult to communicate 04/25/20: No major issues Pain controlled Participation with PT 04/24/20: Pt doing pretty well Bowels move after suppository every 48 hrs Decreasing pain medication Decreasing Cozaar due to hypotension per cardiology 04/23/20: BM after suppository every 48hrs Gabapentin BID seems to be working pretty well Using Oxycodone when Gabapentin is not enough No falls 04/22/20: No major issues Expressive aphasia continues Bowels moved yesterday after suppository given every 48 hours 04/21/20: Suppository today and BM Incontinent of B/B Pain improved Does not need to increase Gabapentin 04/20/20: BM yesterday Pain improved Sleepy today Doing better Incontinence : Improve right sided nerve pain Xanax and pain pill helps him BM after suppository Q 48 hours Incontinent of B/B 04/18/20: BM 04/17/20 Eliquis causes blurry vision per sister so will inquire with Dr Gibson regarding Xarelto Incontinent 04/17/20: Bowels not moving so will initiate Dulcolax suppository every 48hrs after laxatives given and he is agreeable for that plan Denies any significant new issues Pain is getting much better with the Gabapentin twice daily and Oxycodone 04/16/20: Right-sided pain still so increased Gabapentin to 300 Mg BID Xanax will help too Oxycodone also helps 04/15/20: Gabapentin maintained Oxycodone maintained Confusion noted? 04/14/20: Monitoring BP Pain right side still present and will increase Gabapentin 04/13/20: Right arm and right leg pain and issue Oxycodone not really helping Nerve pain so will give Gabapentin 04/12/20: Severe pain on right side Oxycodone ordered Participating in therapies well No other pain Pt doing pretty well Expressive aphasia is an issue WBC is 12.4 CMP normal Consulting cardiology Overall doing very well Conferred with RN Checked meds and labs Reviewed therapy notes Review of Systems Neurological: Weakness, Incoordination Objective Exam Vital Signs Vital Signs Date Time Temp Pulse Resp B/P (MAP) Pulse Ox O2 Delivery O2 Flow Rate FiO2 04/30/20 20:55 Room Air 04/30/20 16:00 36.4 81 16 113/76 (88) 99 Capillary Refill : Less Than 3 Seconds General Appearance: No Apparent Distress, WD/WN, Chronically ill HEENT: PERRL/EOMI, Normal ENT Inspection, Pharynx Normal Neck: Full Range of Motion, Normal Inspection, Non Tender, Supple, Carotid Bruit Respiratory: Chest Non Tender, Lungs Clear, Normal Breath Sounds, No Accessory Muscle Use, No Respiratory Distress Cardiovascular: Regular Rate, Rhythm, No Edema, No Gallop, No JVD, No Murmur, Normal Peripheral Pulses Gastrointestinal: Normal Bowel Sounds, No Organomegaly, No Pulsatile Mass, Non Tender, Soft Back: Normal Inspection, No CVA Tenderness, No Vertebral Tenderness Extremity: Normal Capillary Refill, Normal Inspection, Normal Range of Motion, Non Tender, No Calf Tenderness, No Pedal Edema Neurologic/Psychiatric: Alert, Normal Mood/Affect, Abnormal Gait, Aphasia, Depressed Affect, Disoriented, Motor Weakness (right sided flaccidity) Skin: Normal Color, Warm/Dry Lymphatic: No Adenopathy Results/Procedures Lab Patient resulted labs reviewed. FIM Transfers Therapy Code Descriptions/Definitions Functional [place] Measure: 0=Not Assessed/NA 4=Minimal Assistance 1=Total Assistance 5=Supervision or Setup 2=Maximal Assistance 6=Modified [place] 3=Moderate Assistance 7=Complete IndependenceSCALE: Activities may be completed with or without assistive devices. 4-Dnthvijvkt-awyxjsj completes the activity by him/herself with no assistance from a helper. 5-Set-up or Clean-up Assistance-helper sets up or cleans up; patient completes activity. [place] assists only prior to or following the activity. 4-Supervision or Touching Assistance-helper provides verbal cues and/or touching/steadying and/or contact guard assistance as patient completes activity. Assistance may be provided throughout the activity or intermittently. 3-Partial/Moderate Assistance-helper does LESS THAN HALF the effort. [place] lifts, holds or supports trunk or limbs, but provides less than half the effort. 2-Substantial/Maximal Assistance-helper does MORE THAN HALF the effort. [place] lifts or holds trunk or limbs and provides more than half the effort. 7-Spfuiqkzo-dpgjqm does ALL the effort. Patient does none of the effort to complete the activity. Or, the assistance of 2 or more helpers is required for the patient to complete the activity. If activity was not attempted, code reason: 7-Patient Refused. 9-Not Applicable-not attempted and the patient did not perform the activity before the current illness, exacerbation or injury. 10-Not Attempted due to Environmental Limitations-(lack of equipment, weather restraints, etc.). 88-Not Attempted due to Medical Conditions or Safety Concerns. Roll Left to Right (QC): 4 Sit to Lying (QC): 4 Sit to Stand (QC): 3 Chair/Nzy-hs-Kaaop Xfer(QC): 3 Car Transfer (QC): 2 Gait Training Does the Patient Walk?: Yes Distance: 20'x3 Walk 10 feet (QC): 3 Walk 50 ft with 2 Turns(QC): 88 Walk 150 ft (QC): 88 Walking 10ft/uneven surface-QC: 88 Gait Persons Needed: 1 (plus w/c back up) Gait Assistive Device: Handheld Assist (hallway rail at left hand) Wheelchair Training Does the Pt Use a Wheelchair?: Yes Wheel 50 ft with 2 turns (QC): 4 Wheel 150 ft (QC): 4 Type of Wheelchair: Manual Stair Training 1 Step (curb) (QC): 88 4 Steps (QC): 88 12 Steps (QC): 88 Balance Picking up an Object (QC): 88 ADL-Treatment Eating (QC): 6 Oral Hygiene (QC): 6 (IND in w/c in front of sink, no cues.) Bathing Location: L Arm, R Arm, L Upper Leg, R Upper Leg, L Lower Leg (including foot), R Lower Leg (including foot), Chest, Abdomen, Buttocks, Perineal Area Shower/Bathe Self (QC): 4 (SBA. Pt completes all tasks on sc.) Upper Body Dressing (QC): 3 (min A in w/c.) Lower Body Dressing (QC): 3 (min A (pt threads BLE though requires OT to support RLE during hike/ bridging in bed. ) On/Off Footwear (QC): 5 (s/u shoes.) Toileting Hygiene (QC): 7 Toilet Transfer (QC): 3 (mod A EOB to commode. Pt sits on commode with fair balance. 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 Defib in place Cardiomyopathy HTN Plan: Monitor dysphagia Cardiology consultation IRF protocol 04/11/20: Monitor BP Appreciate Cardiology 04/12/20: Monitor closely Pain management 04/13/20: Gabapentin Oxycodone 04/14/20: Increase Gabapentin Oxycodone BM regimen to increase today may need supp 04/15/20: BM++ Monitor pain of right side 04/16/20: Increase dose of Neurontin Maintain aggressive rehab 04/17/20: BM regimen to include supp Q48 hrs Monitor pain Monitor BP 04/18/20: Increased Gabpentin some more today BM regimen 04/19/20: Manage incontinence Right arm and right leg pain management 04/20/20: Maintain pain control Incontinence management BM regimen 04/21/20: Suppository [id number] Monitor closely Pain control 04/22/20: Continue BM regimen Monitor right sided pain 04/23/20: BM regimen PT OT Incontinence care 04/24/20: Monitor BP Fall risk BM regimen 04/25/20: No med changes Pain controlled 04/26/2020: Pain management Bowel regimen with suppository every 48 hours Continue intensive therapy 04/27/2020: Aggressive therapy Incontinence care Pain control 04/28/20: Monitor closely Periarea powder Monitor pain Check labs in am 04/29/20: Labs reviewed Monitor pain issues 04/30/20: Continue therapy Needs dispo (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
--- NOTE | 2020-04-30 12:48 | Speech Therapy Daily Note ---
Speech Daily Progress Note Subjective Date Seen by Provider: Apr 30, 2020 Time Seen by Provider: 00:30 Patient was laying in bed resting following his OT and PT session. He stated "whew, I'm tired". Objective Patient completed a series of simple general information y/n and description questions with 40% given mod to max cues. Assessment Assessment Current Status: Fair Progress Treatment Plan Continue Plan of Care Speech Short Term Goals Short Term Goals Short Term Goals 1) The patient will complete OME for improved speech production at each session with 80% or greater accuracy. 2) The patient will complete word finding tasks with 80% or greater accuracy. 3) The patient will complete expressive language tasks 80% or greater accuracy. 4) The patient will tolerate least restrictive diet level without s/s of aspiration at 80% or greater accuracy. 5) The patient will utilize compensatory strategies as trained 80% or greater accuracy. Speech Shipping Room Helper Goals Alf Goals Patient will improve cognitive-communication abilities for completion of daily needs with minimal assist. Patient will maintain adequate nutrition/hydration via safe effective swallow function. Speech-Plan Patient/Family Goals Patient/Family Goals: Patient will discharge to another facility for continued therapy. Treatment Plan Speech Therapy Treatment Plan: Continue Plan of Care Treatment Duration: Apr 29, 2020 Frequency: 4 times per week (Patient will receive skilled ST 4-5x per week) Estimated Hrs Per Day: .5 hour per day Rehab Potential: Guarded Barriers to Learning: Patient's expressive aphasia, CVA Pt/Family Agrees to Plan: Yes Safety Risks/Education Teaching Recipient: Patient Teaching Methods: Demonstration, Discussion Response to Teaching: Verbalize Understanding, Return Demonstration Education Topics Provided: Continued safety within his room, continued safety of oral intake Time Speech Therapy Time In: 09:30 Speech Therapy Time Out: 10:00 Total Billed Time: 30 Billed Treatment Time 1, SHAYAN, SLFIDEL Rodriguez Apr 30, 2020 12:48
--- NOTE | 2020-04-30 13:45 | Physical Therapy Daily Note ---
PT Daily Note-Current Subjective Pt laying Supine in bed upon arrival. Pt agrees to PT. Pt reports feeling fatigued from morning tx. Pain Pain Description: Ache Comment: Pt receiving Volteran gel which is routine, doesn't rate pain but reports. Mental Status Patient Orientation: Person, Place Transfers SCALE: Activities may be completed with or without assistive devices. 1-Qwdmesnhjh-ulbwpru completes the activity by him/herself with no assistance from a helper. 5-Set-up or Clean-up Assistance-helper sets up or cleans up; patient completes activity. [place] assists only prior to or following the activity. 4-Supervision or Touching Assistance-helper provides verbal cues and/or touching/steadying and/or contact guard assistance as patient completes activity. Assistance may be provided throughout the activity or intermittently. 3-Partial/Moderate Assistance-helper does LESS THAN HALF the effort. [place] lifts, holds or supports trunk or limbs, but provides less than half the effort. 2-Substantial/Maximal Assistance-helper does MORE THAN HALF the effort. [place] lifts or holds trunk or limbs and provides more than half the effort. 9-Jdjdfasgi-djicbc does ALL the effort. Patient does none of the effort to co mplete the activity. Or, the assistance of 2 or more helpers is required for the patient to complete the activity. If activity was not attempted, code reason: 7-Patient Refused. 9-Not Applicable-not attempted and the patient did not perform the activity before the current illness, exacerbation or injury. 10-Not Attempted due to Environmental Limitations-(lack of equipment, weather restraints, etc.). 88-Not Attempted due to Medical Conditions or Safety Concerns. Weight Bearing Full Weight Bearing Full Weight Bearing Treatments PIPE INSPECTOR reviews positioning while Nurse applies Volteran. Pt resting with all needs met, all light in hand. Assessment Current Status: Good Progress Pt is fatigued from morning tx but has gained strength and core control. PT Short Term Goals Short Term Goals Time Frame: Apr 18, 2020 Roll Left & Right: 3 Sit to lyin Lying to sitting on side of be: 3 Sit to stand: 3 Chair/xdr-bq-ufesx transfer: 3 PT Manager Facility Goals Manager Facility Goals PT Manager Facility Goals Time Frame: May 02, 2020 Roll Left & Right (QC): 3 (Zoya) Sit to Lying (QC): 3 (Zoya) Lying-Sitting on Side/Bed(QC): 3 (Zoya) Sit to Stand (QC): 3 (Zoya) Chair/Zpi-ho-Vvdjc Xfer(QC): 3 (Zoya) Toilet Transfer (QC): 3 (Zoya) Car Transfer (QC): 3 (Zoya) Does the Patient Walk: No and Walking Goal NOT indicated Walk 10 feet (QC): 88 Walk 50ft with 2 Turns (QC): 88 Walk 150 ft (QC): 88 Walking 10ft on Uneven Surface: 88 1 Step (curb) (QC): 88 4 Steps (QC): 88 12 Steps (QC): 88 Picking up an Object (QC): 88 Wheel 50 feet with 2 turns (QC: 4 Wheel 150 feet: 4 PT Plan Problem List Problem List: Activity Tolerance, Balance, Transfer Treatment/Plan Treatment Plan: Continue Plan of Care Treatment Plan: Bed Mobility, Education, Functional Activity [place], Functional Strength, Group Therapy, Gait, Safety, Therapeutic Exercise, Transfers Treatment Duration: May 01, 2020 Frequency: At least 5 of 7 days/Wk (IRF) Estimated Hrs Per Day: 1.5 hours per day Patient and/or Family Agrees t: Yes Safety Risks/Education Patient Education: Correct Positioning, Safety Issues Teaching Recipient: Patient Teaching Methods: Discussion Response to Teaching: Verbalize Understanding Time/GCodes Time In: 1300 Time Out: 1315 Total Billed Treatment Time: 15 Total Billed Treatment 1, FA (15m) CATALINO CAMPBELL PTA Apr 30, 2020 13:45
--- NOTE | 2020-04-30 15:08 | NUR ---
CM/SS CONCURRENT DOCUMENTATION Next step discharge planning, referral completed with Flak[facility] Alba for intermodal customer service care admission status. [employer] advocated that facility would provide therapies to patient even though he was uninsured/Medicaid pending and that even with Medicaid therapies would not be a paid service. Patient with CVA, age 59, has made progress, designer/writer adamant that therapy continues to maximize his gains. [facility] is 05/03/20, designer/writer targeted on or about this to [facility] re admission. Coordinator indicated this has to be reviewed through management levels due to facility accepting a known loss of reimbursement either in full or in part. BARRIERS TO DISCHARGE: Patient does not truly meet criteria for assisted living, his lack of financial benefits/coverage is prohibitive to any entity to willingly accept loss. His former living arrangement is not available due to his new level of dependence and need for handicap specialty DME.
[2020-04-30 16:00] VITALS: BP 113/76
--- NOTE | 2020-04-30 19:08 | NUR ---
Bedside report received from ROMANA MARSHALL, assume care of pt
--- NOTE | 2020-04-30 20:52 | NUR ---
Pt refused Colace, Miralax & Senokot, c/o pain to rt side pain level 6/10 on numeric scale, Oxyir 5mg given crushed in pudding, refuses repositioning to sides
--- NOTE | 2020-04-30 21:45 | NUR ---
Rates pain level 4/10 on numeric scale
--- NOTE | 2020-05-01 04:35 | NUR ---
c/o rt sided pain, level 10/10 on numeric scale, oxyir 5mg crushed in pudding
--- NOTE | 2020-05-01 05:10 | NUR ---
resting quietly in bed, pain level 0/10 on CNPI SCALE
[2020-05-01 05:22] VITALS: BP 112/67
[2020-05-01] MEDS: BISACODYL 10 MG SUPP (DULCOLAX) PR SCH (06:48)
[2020-05-01] MEDS: ACETAMINOPHEN 325 MG TABLET PO PRN (08:52)
[2020-05-01] MEDS: GABAPENTIN 400 MG (NEURONTIN) CAP PO SCH ×2 (08:52→21:25)
[2020-05-01] MEDS: BISOPROLOL 5 MG TAB (ZEBETA) PO SCH (08:52)
[2020-05-01] MEDS: SPIRONOLACTONE 25 MG (ALDACTONE) TAB PO SCH (08:53)
[2020-05-01] MEDS: ASPIRIN 81 MG CHEW (CHILDREN'S ASA) PO SCH (08:53)
[2020-05-01] MEDS: polyethylene glycoL POWDER 17 GM (MIRALAX) PACK PO SCH ×2 (08:54→21:25)
[2020-05-01] MEDS: DICLOFENAC 1% GEL 100 GM (VOLTAREN) TUBE TOP SCH ×4 (08:54→21:26)
[2020-05-01] MEDS: DOCUSATE SODIUM 100 MG (COLACE) CAP PO SCH ×2 (08:54→21:25)
[2020-05-01] MEDS: MICONAZOLE 2% POWDER (DESENEX AF) 90 GM TOP SCH ×2 (08:54→21:26)
[2020-05-01] MEDS: SENNA W/DOCUSATE (SENOKOT S) TABLET PO SCH ×2 (08:54→21:25)
[2020-05-01] MEDS: APIXABAN 5 MG (ELIQUIS) TABLET PO SCH ×2 (08:54→21:25)
--- NOTE | 2020-05-01 09:01 | Physical Therapy Daily Note ---
PT Daily Note-Current Subjective Pt laying Supine in bed upon arrival. Pt agrees to PT/OT co-treat. Pain Location: Right Pain Description: Ache Comment: Pt reports pain in R UE & LE w/movement but doesn't rate. Mental Status Patient Orientation: Person, Place, Situation Pt doesn't verbally communicate much but is oriented. Transfers SCALE: Activities may be completed with or without assistive devices. 6-Kjbhcnjnoh-paoqgok completes the activity by him/herself with no assistance from a helper. 5-Set-up or Clean-up Assistance-helper sets up or cleans up; patient completes activity. [place] assists only prior to or following the activity. 4-Supervision or Touching Assistance-helper provides verbal cues and/or touching/steadying and/or contact guard assistance as patient completes activity. Assistance may be provided throughout the activity or intermittently. 3-Partial/Moderate Assistance-helper does LESS THAN HALF the effort. [place] lifts, holds or supports trunk or limbs, but provides less than half the effort. 2-Substantial/Maximal Assistance-helper does MORE THAN HALF the effort. [place] lifts or holds trunk or limbs and provides more than half the effort. 7-Wjfmftdib-songcp does ALL the effort. Patient does none of the effort to complete the activity. Or, the assistance of 2 or more helpers is required for the patient to complete the activity. If activity was not attempted, code reason: 7-Patient Refused. 9-Not Applicable-not attempted and the patient did not perform the activity before the current illness, exacerbation or injury. 10-Not Attempted due to Environmental Limitations-(lack of equipment, weather restraints, etc.). 88-Not Attempted due to Medical Conditions or Safety Concerns. Sit to Lying (QC): 5 Lying to Sitting/Side of Bed(Q: 5 Sit to Stand (QC): 4 Chair/Col-ug-Zjemz Xfer(QC): 4 Pt is more fatigued today than tx yesterday. Weight Bearing Full Weight Bearing Full Weight Bearing Wheelchair Training Does the Pt Use a Wheelchair?: Yes Wheel 50 ft with 2 turns (QC): 5 Wheel 150 ft (QC): 5 Type of Wheelchair: Manual Exercises Supine Ex: Ankle pumps, Quad Set, Glut sets, Heel Slides, Straight leg raise, Hip abd/add Supine Reps: 15 Seated Therapy Exercises: Ankle pumps, Long arc quads, Hip flexion, Kicking activity Seated Reps: 15 Treatments Pt fatigued upon entry. Pt laying supine and agrees did not sleep well. States pain in R side- nursing notified. Pt agrees to showering. Pt requires increased time for ADLs due to decreased energy. OT/ PT co-treat for 1 hour: [id number] OT addresses ADLs, UE movement, balance, and PT addresses LE movement, balance, fx transfers. Pt supine to sit with SBA. SPT to w/c with min A. Pt propels to shower room, completing showering in sc and dressing as outlined above. Post showering, pt p ropels self through [employer] with one instance of hitting item placed to R side. Pt requests bed. SPT to bed and mod A reaching supine. Pt able to bridge/ push self to HOB with instruction. Pt left with nursing with UEs positioned, all needs met, call light on chest. Afternoon: Pt completes Ex at recliner then resting with all needs met, call light in hand. Assessment Pt is more fatigued than yesterday's tx. PT Short Term Goals Short Term Goals Time Frame: Apr 18, 2020 Roll Left & Right: 3 Sit to lyin Lying to sitting on side of be: 3 Sit to stand: 3 Chair/jvy-vr-hwfdc transfer: 3 PT [facility] Goals [facility] Goals PT [facility] Goals Time Frame: May 02, 2020 Roll Left & Right (QC): 3 (Zoya) Sit to Lying (QC): 3 (Zoya) Lying-Sitting on Side/Bed(QC): 3 (Zoya) Sit to Stand (QC): 3 (Zoya) Chair/Mej-nf-Gbhva Xfer(QC): 3 (Zoya) Toilet Transfer (QC): 3 (Zoya) Car Transfer (QC): 3 (Zoya) Does the Patient Walk: No and Walking Goal NOT indicated Walk 10 feet (QC): 88 Walk 50ft with 2 Turns (QC): 88 Walk 150 ft (QC): 88 Walking 10ft on Uneven Surface: 88 1 Step (curb) (QC): 88 4 Steps (QC): 88 12 Steps (QC): 88 Picking up an Object (QC): 88 Wheel 50 feet with 2 turns (QC: 4 Wheel 150 feet: 4 PT Plan Problem List Problem List: Activity Tolerance, Functional Strength, Transfer Treatment/Plan Treatment Plan: Continue Plan of Care Treatment Plan: Bed Mobility, Education, Functional Activity [place], Functional Strength, Group Therapy, Gait, Safety, Therapeutic Exercise, Transfers Treatment Duration: May 01, 2020 Frequency: At least 5 of 7 days/Wk (IRF) Estimated Hrs Per Day: 1.5 hours per day Patient and/or Family Agrees t: Yes Safety Risks/Education Patient Education: Transfer Techniques, Correct Positioning, Safety Issues Teaching Recipient: Patient Teaching Methods: Discussion Response to Teaching: Verbalize Understanding Time/GCodes Time In: 800 Time Out: 900 Total Billed Treatment Time: 60 Total Billed Treatment 1, [facility] (15m), FA x3 (45m) Afternoon Tx: [id number] 1, EX (15m) CATALINO CAMPBELL PTA May 01, 2020 09:01
--- NOTE | 2020-05-01 09:01 | Occupational Ther Daily Note ---
OT Current Status-Daily Note Subjective Pt fatigued upon entry. Pt laying supine and agrees did not sleep well. States pain in R side- nursing notified. Pt agrees to showering. Pt requires increased time for ADLs due to decreased energy. OT/ PT co-treat for 1 hour: [id number] OT addresses ADLs, UE movement, balance, and PT addresses LE movement, balance, fx transfers. OT individual tx: [id number] (22): Pt in bed, just woke up from nap. Agrees to tx. States pain is, "okay." ADL-Treatment Therapy Code Descriptions/Definitions Functional [place] Measure: 0=Not Assessed/NA 4=Minimal Assistance 1=Total Assistance 5=Supervision or Setup 2=Maximal Assistance 6=Modified [place] 3=Moderate Assistance 7=Complete IndependenceSCALE: Activities may be completed with or without assistive devices. 1-Jmcudkmfkc-zfzsesi completes the activity by him/herself with no assistance from a helper. 5-Set-up or Clean-up Assistance-helper sets up or cleans up; patient completes activity. [place] assists only prior to or following the activity. 4-Supervision or Touching Assistance-helper provides verbal cues and/or touching/steadying and/or contact guard assistance as patient completes activity. Assistance may be provided throughout the activity or intermittently. 3-Partial/Moderate Assistance-helper does LESS THAN HALF the effort. [place] lifts, holds or supports trunk or limbs, but provides less than half the effort. 2-Substantial/Maximal Assistance-helper does MORE THAN HALF the effort. [place] lifts or holds trunk or limbs and provides more than half the effort. 3-Atwjtwhdl-najalx does ALL the effort. Patient does none of the effort to complete the activity. Or, the assistance of 2 or more helpers is required for the patient to complete the activity. If activity was not attempted, code reason: 7-Patient Refused. 9-Not Applicable-not attempted and the patient did not perform the activity before the current illness, exacerbation or injury. 10-Not Attempted due to Environmental Limitations-(lack of equipment, weather restraints, etc.). 88-Not Attempted due to Medical Conditions or Safety Concerns. Eating (QC): 6 Oral Hygiene (QC): 6 (IND in w/c in front of sink.) Shower/Bathe Self (QC): 4 (SBA for all tasks in sc.) Upper Body Dressing (QC): 3 (min A right side.) Lower Body Dressing (QC): 1 (TD due to Ax2 needed for safety in stance. though min A- pt able to thread BLE, pt requires assist in stance to plant puller hips. ) On/Off Footwear: 3 (min A ) Other Treatment Pt supine to sit with SBA. SPT to w/c with min A. Pt propels to shower room, completing showering in sc and dressing as outlined above. Post showering, pt propels self through [employer] with one instance of hitting item placed to R side. Pt requests bed. SPT to bed and mod A reaching supine. Pt able to bridge/ push self to HOB with instruction. Pt left with nursing with UEs positioned, all needs met, call light on chest. OT individual tx: Pt completes bed mob with min A. SPT to w/c with mod A. Pt propels in front of sink, completes all oral care with IND. Pt propels w/c with min cues for R side awareness, SPT back to recliner chair with all needs met, call light in reach, LEs elevated. Pt denies need for changing briefs or utilizing bathroom. Education OT Patient Education: Correct positioning, Modified ADL techniques, Safety issues, Use of adapted equipment, W/C management Teaching Recipient: Patient Teaching Methods: Demonstration, Discussion Response to Teaching: Verbalize Understanding, Return Demonstration, Reinforcement Needed OT Short Term Goals Short Term Goals Eatin Oral hygiene: 5 Toileting hygiene: 2 Shower/bathe self: 2 Upper body dressin Lower body dressin Putting on/taking off footwear: 2 OT Drill Sharpener Goals Drill Sharpener Goals Time Frame: Apr 24, 2020 Eating (QC): 6 Oral Hygiene (QC): 6 Toileting Hygiene (QC): 3 Shower/Bathe Self (QC): 3 Upper Body Dressing (QC): 6 Lower Body Dressing (QC): 3 On/Off Footwear (QC): 6 Additional Goals: 1-Demonstrate ADL Tasks, 2-Verbalize Understanding, 3-ImproveStrength/[place] 1=Demonstrate adherence to instructed precautions during ADL tasks. 2=Patient will verbalize/demonstrate understanding of assistive devices/modifications for ADL. 3=Patient will improve strength/tolerance for activity to enable patient to perform ADL's. OT Education/Plan Problem List/Assessment Assessment: Decreased Activ Tolerance, Decreased UE Strength, Dependent Transfers, Impaired Bed Mobility, Impaired Coordination, Impaired Funct Balance, Impaired I ADL's, Impaired Self-Care Skills, Restricted Funct UE ROM, Visual- Perceptual Deficit Discharge Recommendations Plan/Recommendations: Continue POC Therapy Discharge Recommendati: 24 Hour Supervision, Post Acute OT Treatment Plan/Plan of Care Treatment,Training & Education: Yes Patient would benefit from OT for education, treatment and training to promote independence in ADL's, mobility, safety and/or upper extremity function for ADL's. Plan of Care: ADL Retraining, Caregiver Training, Concurrent Therapy, Functional Mobility, Group Exercise/Act as Ind, Orthotic Fitting/Training, UE Funct Exercise/Act, UE Neuromus Re-Ed/Coord, Visual/Perceptual Retrain, W/C Management Training Treatment Duration: Apr 24, 2020 Frequency: At least 5 of 7 days/Wk (IRF) Estimated Hrs Per Day: 1.5 hours per day Agreement: Yes Rehab Potential: Guarded Time/GCodes Start Time: 08:00 (1030) Stop Time: 09:00 (1052) Total Time Billed (hr/min): 82 Billed Treatment Time OT/ PT co-treat for 1 hour: [id number] OT addresses ADLs, UE movement, balance, and PT addresses LE movement, balance, fx transfers. 1, ADL 4 (60) OT individual tx; 1, ADL (22) Total: 82 FATIMAH KERNS OTR May 01, 2020 09:01
--- NOTE | 2020-05-01 10:24 | Speech Therapy Daily Note ---
Speech Daily Progress Note Subjective Date Seen by Provider: May 01, 2020 Time Seen by Provider: 00:30 Patient was resting in his bed, very sleepy and difficult to engaged this date. Objective Patient completed simple y/n questions with 50% given maximum cues due to patient being sleepy. Assessment Assessment Current Status: Fair Progress Treatment Plan Continue Plan of Care Speech Short Term Goals Short Term Goals Short Term Goals 1) The patient will complete OME for improved speech production at each session with 80% or greater accuracy. 2) The patient will complete word finding tasks with 80% or greater accuracy. 3) The patient will complete expressive language tasks 80% or greater accuracy. 4) The patient will tolerate least restrictive diet level without s/s of aspiration at 80% or greater accuracy. 5) The patient will utilize compensatory strategies as trained 80% or greater accuracy. Speech Siderographer Goals Siderographer Goals Patient will improve cognitive-communication abilities for completion of daily needs with minimal assist. Patient will maintain adequate nutrition/hydration via safe effective swallow function. Speech-Plan Patient/Family Goals Patient/Family Goals: Patient will discharge to another facility upon details being completed. Treatment Plan Speech Therapy Treatment Plan: Continue Plan of Care Treatment Duration: Apr 29, 2020 Frequency: 4 times per week (Patient will receive skilled ST 4-5x per week) Estimated Hrs Per Day: .5 hour per day Rehab Potential: Guarded Barriers to Learning: Patient's third CVA, expressive aphasia Pt/Family Agrees to Plan: Yes Safety Risks/Education Teaching Recipient: Patient Teaching Methods: Demonstration, Discussion Response to Teaching: Verbalize Understanding, Return Demonstration Education Topics Provided: Safety within his room and with oral intake. Time Speech Therapy Time In: 09:30 Speech Therapy Time Out: 10:00 Total Billed Time: 30 Billed Treatment Time 1, DYST, SLFIDEL Rodriguez May 01, 2020 10:24
--- NOTE | 2020-05-01 10:34 | PM&R Progress Note ---
Subjective HPI/CC On Admission Date Seen by Provider: May 01, 2020 Time Seen by Provider: 10:30 Subjective/Events-last exam 05/01/20: No major changes Refuses suppository Pain on the right side continues Incontinent Sister did family training and felt like he will need to go to a nursing facil ity [facility] was sent a referral 04/30/20: No major changes Laxatives were refused and he is having a BM every other day without the suppository Denies any significant new issues 04/29/20: Patient reports no major issues No pain reported Pain meds are helpful 04/28/20: Periarea red so will start antifungal powder No pain reported otherwise Incontinence will require 14/12 nursing care along with severe deficit 04/27/2020: Incontinence of both bowel and bladder are limitations Denies any significant new issues Pain is pretty well controlled on the right side for flaccidity muscle spasms 04/26/2020: Patient denies any pain Incontinence requires nursing care 14/12 Pain is pretty well controlled Expressive aphasia makes it difficult to communicate 04/25/20: No major issues Pain controlled Participation with PT 04/24/20: Pt doing pretty well Bowels move after suppository every 48 hrs Decreasing pain medication Decreasing Cozaar due to hypotension per cardiology 04/23/20: BM after suppository every 48hrs Gabapentin BID seems to be working pretty well Using Oxycodone when Gabapentin is not enough No falls 04/22/20: No major issues Expressive aphasia continues Bowels moved yesterday after suppository given every 48 hours 04/21/20: Suppository today and BM Incontinent of B/B Pain improved Does not need to increase Gabapentin 04/20/20: BM yesterday Pain improved Sleepy today Doing better Incontinence : Improve right sided nerve pain Xanax and pain pill helps him BM after suppository Q 48 hours Incontinent of B/B 04/18/20: BM 04/17/20 Eliquis causes blurry vision per sister so will inquire with Dr Gibson regarding Xarelto Incontinent 04/17/20: Bowels not moving so will initiate Dulcolax suppository every 48hrs after laxatives given and he is agreeable for that plan Denies any significant new issues Pain is getting much better with the Gabapentin twice daily and Oxycodone 04/16/20: Right-sided pain still so increased Gabapentin to 300 Mg BID Xanax will help too Oxycodone also helps 04/15/20: Gabapentin maintained Oxycodone maintained Confusion noted? 04/14/20: Monitoring BP Pain right side still present and will increase Gabapentin 04/13/20: Right arm and right leg pain and issue Oxycodone not really helping Nerve pain so will give Gabapentin 04/12/20: Severe pain on right side Oxycodone ordered Participating in therapies well No other pain Pt doing pretty well Expressive aphasia is an issue WBC is 12.4 CMP normal Consulting cardiology Overall doing very well Conferred with RN Checked meds and labs Reviewed therapy notes Review of Systems General: Fatigue, Malaise Neurological: Weakness, Incoordination Objective Exam Vital Signs Vital Signs Date Time Temp Pulse Resp B/P (MAP) Pulse Ox O2 Delivery O2 Flow Rate FiO2 05/01/20 20:00 99 Room Air 05/01/20 17:10 36.4 81 16 111/70 (84) Capillary Refill : Less Than 3 Seconds General Appearance: No Apparent Distress, WD/WN, Chronically ill HEENT: PERRL/EOMI, Normal ENT Inspection, Pharynx Normal Neck: Full Range of Motion, Normal Inspection, Non Tender, Supple, Carotid Bruit Respiratory: Chest Non Tender, Lungs Clear, Normal Breath Sounds, No Accessory Muscle Use, No Respiratory Distress Cardiovascular: Regular Rate, Rhythm, No Edema, No Gallop, No JVD, No Murmur, Normal Peripheral Pulses Gastrointestinal: Normal Bowel Sounds, No Organomegaly, No Pulsatile Mass, Non Tender, Soft Back: Normal Inspection, No CVA Tenderness, No Vertebral Tenderness Extremity: Normal Capillary Refill, Normal Inspection, Normal Range of Motion, Non Tender, No Calf Tenderness, No Pedal Edema Neurologic/Psychiatric: Alert, Normal Mood/Affect, Abnormal Gait, Aphasia, Depressed Affect, Disoriented, Motor Weakness (right sided flaccidity) Skin: Normal Color, Warm/Dry Lymphatic: No Adenopathy Results/Procedures Lab Patient resulted labs reviewed. FIM Transfers Therapy Code Descriptions/Definitions Functional [place] Measure: 0=Not Assessed/NA 4=Minimal Assistance 1=Total Assistance 5=Supervision or Setup 2=Maximal Assistance 6=Modified [place] 3=Moderate Assistance 7=Complete IndependenceSCALE: Activities may be completed with or without assistive devices. 5-Detdnxyxua-ytctiky completes the activity by him/herself with no assistance from a helper. 5-Set-up or Clean-up Assistance-helper sets up or cleans up; patient completes activity. [place] assists only prior to or following the activity. 4-Supervision or Touching Assistance-helper provides verbal cues and/or touching/steadying and/or contact guard assistance as patient completes activity. Assistance may be provided throughout the activity or intermittently. 3-Partial/Moderate Assistance-helper does LESS THAN HALF the effort. [place] lifts, holds or supports trunk or limbs, but provides less than half the effort. 2-Substantial/Maximal Assistance-helper does MORE THAN HALF the effort. [place] lifts or holds trunk or limbs and provides more than half the effort. 0-Atvugeswz-hssogz does ALL the effort. Patient does none of the effort to complete the activity. Or, the assistance of 2 or more helpers is required for the patient to complete the activity. If activity was not attempted, code reason: 7-Patient Refused. 9-Not Applicable-not attempted and the patient did not perform the activity before the current illness, exacerbation or injury. 10-Not Attempted due to Environmental Limitations-(lack of equipment, weather restraints, etc.). 88-Not Attempted due to Medical Conditions or Safety Concerns. Roll Left to Right (QC): 4 Sit to Lying (QC): 4 Sit to Stand (QC): 3 Chair/Gha-gf-Qfavz Xfer(QC): 3 Car Transfer (QC): 2 Gait Training Does the Patient Walk?: Yes Distance: 20'x3 Walk 10 feet (QC): 3 Walk 50 ft with 2 Turns(QC): 88 Walk 150 ft (QC): 88 Walking 10ft/uneven surface-QC: 88 Gait Persons Needed: 1 (plus w/c back up) Gait Assistive Device: Handheld Assist (hallway rail at left hand) Wheelchair Training Does the Pt Use a Wheelchair?: Yes Wheel 50 ft with 2 turns (QC): 5 Wheel 150 ft (QC): 5 Type of Wheelchair: Manual Stair Training 1 Step (curb) (QC): 88 4 Steps (QC): 88 12 Steps (QC): 88 Balance Picking up an Object (QC): 88 ADL-Treatment Eating (QC): 6 Oral Hygiene (QC): 6 (IND in w/c in front of sink, no cues.) Bathing Location: L Arm, R Arm, L Upper Leg, R Upper Leg, L Lower Leg (including foot), R Lower Leg (including foot), Chest, Abdomen, Buttocks, Perineal Area Shower/Bathe Self (QC): 4 (SBA for all tasks in sc.) Upper Body Dressing (QC): 3 (min A right side.) Lower Body Dressing (QC): 1 (TD due to Ax2 needed for safety in stance. though min A- pt able to thread BLE, pt requires assist in stance to washing machine loader and puller hips. ) On/Off Footwear (QC): 3 (min A ) Toileting Hygiene (QC): 7 Toilet Transfer (QC): 3 (mod A EOB to commode. Pt sits on commode with fair balance. 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 Defib in place Cardiomyopathy HTN Plan: Monitor dysphagia Cardiology consultation IRF protocol 04/11/20: Monitor BP Appreciate Cardiology 04/12/20: Monitor closely Pain management 04/13/20: Gabapentin Oxycodone 04/14/20: Increase Gabapentin Oxycodone BM regimen to increase today may need supp 04/15/20: BM++ Monitor pain of right side 04/16/20: Increase dose of Neurontin Maintain aggressive rehab 04/17/20: BM regimen to include supp Q48 hrs Monitor pain Monitor BP 04/18/20: Increased Gabpentin some more today BM regimen 04/19/20: Manage incontinence Right arm and right leg pain management 04/20/20: Maintain pain control Incontinence management BM regimen 04/21/20: Suppository [id number] Monitor closely Pain control 04/22/20: Continue BM regimen Monitor right sided pain 04/23/20: BM regimen PT OT Incontinence care 04/24/20: Monitor BP Fall risk BM regimen 04/25/20: No med changes Pain controlled 04/26/2020: Pain management Bowel regimen with suppository every 48 hours Continue intensive therapy 04/27/2020: Aggressive therapy Incontinence care Pain control 04/28/20: Monitor closely Periarea powder Monitor pain Check labs in am 04/29/20: Labs reviewed Monitor pain issues 04/30/20: Continue therapy Needs dispo 05/01/20: DC to NH at DC Monitor closely Pain continues and difficult to ascertain due to expressive aphasia (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
--- NOTE | 2020-05-01 11:10 | NUR ---
CM/SS CONCURRENT DOCUMENTATION Second referral sent to [facility] [place]. They will review status of Medicaid and likely would have to get approval through [employer]. For future care planning, [facility] may be a good match/fit for patient and is under [facility] umbrella. Regarding [facility], no available beds. Requested status report from [facility] regarding referral from yesterday, no response at this time.
--- NOTE | 2020-05-01 15:35 | NUR ---
CM/SS PATIENT CARE CONFERENCE Patient is sleeping soundly. Reviewed Summary with sister/DPOA and she understands he would be discharged as soon as a placement can be coordinated. [facility] has denied patient. [facility] Electric Engine Mechanic has referral on her desk for review. Referral sent to [facility], which includes [facility] and [facility]. BARRIERS TO DISCHARGE: Primarily Financial, hugely in this situation, as previously noted. DME: Patient had no DME, will need ultralight wheelchair. Likely FWW, other assistive devices regarding transferring as independently as possible.
[2020-05-01 17:10] VITALS: BP 111/70
[2020-05-02 05:51] VITALS: BP 108/68
[2020-05-02] MEDS: ASPIRIN 81 MG CHEW (CHILDREN'S ASA) PO SCH (07:56)
[2020-05-02] MEDS: BISOPROLOL 5 MG TAB (ZEBETA) PO SCH (07:56)
[2020-05-02] MEDS: GABAPENTIN 400 MG (NEURONTIN) CAP PO SCH ×2 (07:56→21:57)
[2020-05-02] MEDS: APIXABAN 5 MG (ELIQUIS) TABLET PO SCH ×2 (07:56→21:56)
[2020-05-02] MEDS: SPIRONOLACTONE 25 MG (ALDACTONE) TAB PO SCH (07:56)
[2020-05-02] MEDS: SENNA W/DOCUSATE (SENOKOT S) TABLET PO SCH ×2 (07:56→21:57)
[2020-05-02] MEDS: DICLOFENAC 1% GEL 100 GM (VOLTAREN) TUBE TOP SCH ×4 (07:57→21:57)
[2020-05-02] MEDS: polyethylene glycoL POWDER 17 GM (MIRALAX) PACK PO SCH ×2 (07:57→21:57)
[2020-05-02] MEDS: MICONAZOLE 2% POWDER (DESENEX AF) 90 GM TOP SCH ×2 (07:57→21:57)
[2020-05-02] MEDS: DOCUSATE SODIUM 100 MG (COLACE) CAP PO SCH ×2 (07:57→21:57)
--- NOTE | 2020-05-02 11:12 | NUR ---
RD ASSESSMENT PMHx: afib; HTN; stroke; PT INTERACTION: Pt was awake and pleasant during nutrition follow-up. Pt states he has been eating "alright" since last assessment. Note avg PO intake 100% x4d, per chart review. Pt states no issues with n/v/c/d since last assessment. Note last BM was 04/28, and pt currently on bowel regimen of colace BID, senna BID, and miralax BID, per chart review. ABNORMAL NUTRITION-RELATED LAB VALUES LOW: Pro 6.3; HIGH: AST 77; ALT 141; Est. kcal needs: 5195-8749 kcal | 20-25 kcal/kg Est. Pro needs: 62-78 g Pro | 0.8-1.0 g Pro/kg PES STATEMENT: Swallowing difficulty (NC-1.1) related to motor causes as evidenced by chart review, and PMH of stroke. INTERVENTION: Continue with current diet order of DYS2 Mechanically Altered diet, with modifier of [place] Thick Liquids. Will continue to follow and reassess as pt needs, intake, and status change. Shivani HUI, MS RD LD [phone] cell
--- NOTE | 2020-05-02 11:27 | PM&R Progress Note ---
Subjective HPI/CC On Admission Date Seen by Provider: May 02, 2020 Time Seen by Provider: 11:30 Subjective/Events-last exam 05/02/20: No major changes More alert today In chair today No BM for several days and refuses suppository 05/01/20: No major changes Refuses suppository Pain on the right side continues Incontinent Sister did family training and felt like he will need to go to a nursing facility [facility] [place] was sent a referral 04/30/20: No major changes Laxatives were refused and he is having a BM every other day without the suppository Denies any significant new issues 04/29/20: Patient reports no major issues No pain reported Pain meds are helpful 04/28/20: Periarea red so will start antifungal powder No pain reported otherwise Incontinence will require 14/12 nursing care along with severe deficit 04/27/2020: Incontinence of both bowel and bladder are limitations Denies any significant new issues Pain is pretty well controlled on the right side for flaccidity muscle spasms 04/26/2020: Patient denies any pain Incontinence requires nursing care 14/12 Pain is pretty well controlled Expressive aphasia makes it difficult to communicate 04/25/20: No major issues Pain controlled Participation with PT 04/24/20: Pt doing pretty well Bowels move after suppository every 48 hrs Decreasing pain medication Decreasing Cozaar due to hypotension per cardiology 04/23/20: BM after suppository every 48hrs Gabapentin BID seems to be working pretty well Using Oxycodone when Gabapentin is not enough No falls 04/22/20: No major issues Expressive aphasia continues Bowels moved yesterday after suppository given every 48 hours 04/21/20: Suppository today and BM Incontinent of B/B Pain improved Does not need to increase Gabapentin 04/20/20: BM yesterday Pain improved Sleepy today Doing better Incontinence : Improve right sided nerve pain Xanax and pain pill helps him BM after suppository Q 48 hours Incontinent of B/B 04/18/20: BM 04/17/20 Eliquis causes blurry vision per sister so will inquire with Dr Gibson regarding Xarelto Incontinent 04/17/20: Bowels not moving so will initiate Dulcolax suppository every 48hrs after laxatives given and he is agreeable for that plan Denies any significant new issues Pain is getting much better with the Gabapentin twice daily and Oxycodone 04/16/20: Right-sided pain still so increased Gabapentin to 300 Mg BID Xanax will help too Oxycodone also helps 04/15/20: Gabapentin maintained Oxycodone maintained Confusion noted? 04/14/20: Monitoring BP Pain right side still present and will increase Gabapentin 04/13/20: Right arm and right leg pain and issue Oxycodone not really helping Nerve pain so will give Gabapentin 04/12/20: Severe pain on right side Oxycodone ordered Participating in therapies well No other pain Pt doing pretty well Expressive aphasia is an issue WBC is 12.4 CMP normal Consulting cardiology Overall doing very well Conferred with RN Checked meds and labs Reviewed therapy notes Review of Systems General: Fatigue, Malaise Neurological: Weakness, Incoordination Objective Exam Vital Signs Vital Signs Date Time Temp Pulse Resp B/P (MAP) Pulse Ox O2 Delivery O2 Flow Rate FiO2 05/02/20 20:05 99 Room Air 05/02/20 16:52 36.4 80 16 97/63 (74) Capillary Refill : Less Than 3 Seconds General Appearance: No Apparent Distress, WD/WN, Chronically ill HEENT: PERRL/EOMI, Normal ENT Inspection, Pharynx Normal Neck: Full Range of Motion, Normal Inspection, Non Tender, Supple, Carotid Bruit Respiratory: Chest Non Tender, Lungs Clear, Normal Breath Sounds, No Accessory Muscle Use, No Respiratory Distress Cardiovascular: Regular Rate, Rhythm, No Edema, No Gallop, No JVD, No Murmur, Normal Peripheral Pulses Gastrointestinal: Normal Bowel Sounds, No Organomegaly, No Pulsatile Mass, Non Tender, Soft Back: Normal Inspection, No CVA Tenderness, No Vertebral Tenderness Extremity: Normal Capillary Refill, Normal Inspection, Normal Range of Motion, Non Tender, No Calf Tenderness, No Pedal Edema Neurologic/Psychiatric: Alert, Normal Mood/Affect, Abnormal Gait, Aphasia, Depressed Affect, Disoriented, Motor Weakness (right sided flaccidity) Skin: Normal Color, Warm/Dry Lymphatic: No Adenopathy Results/Procedures Lab Patient resulted labs reviewed. FIM Transfers Therapy Code Descriptions/Definitions Functional [place] Measure: 0=Not Assessed/NA 4=Minimal Assistance 1=Total Assistance 5=Supervision or Setup 2=Maximal Assistance 6=Modified [place] 3=Moderate Assistance 7=Complete IndependenceSCALE: Activities may be completed with or without assistive devices. 4-Wxdcrgxezf-kcwzwpi completes the activity by him/herself with no assistance from a helper. 5-Set-up or Clean-up Assistance-helper sets up or cleans up; patient completes activity. [place] assists only prior to or following the activity. 4-Supervision or Touching Assistance-helper provides verbal cues and/or touching/steadying and/or contact guard assistance as patient completes activi ty. Assistance may be provided throughout the activity or intermittently. 3-Partial/Moderate Assistance-helper does LESS THAN HALF the effort. [place] lifts, holds or supports trunk or limbs, but provides less than half the effort. 2-Substantial/Maximal Assistance-helper does MORE THAN HALF the effort. [place] lifts or holds trunk or limbs and provides more than half the effort. 9-Mlmywqggv-qqzzwy does ALL the effort. Patient does none of the effort to complete the activity. Or, the assistance of 2 or more helpers is required for the patient to complete the activity. If activity was not attempted, code reason: 7-Patient Refused. 9-Not Applicable-not attempted and the patient did not perform the activity before the current illness, exacerbation or injury. 10-Not Attempted due to Environmental Limitations-(lack of equipment, weather restraints, etc.). 88-Not Attempted due to Medical Conditions or Safety Concerns. Roll Left to Right (QC): 4 Sit to Lying (QC): 5 Sit to Stand (QC): 4 Chair/Pmf-sb-Fjrlx Xfer(QC): 4 Car Transfer (QC): 2 Gait Training Does the Patient Walk?: Yes Distance: 20'x3 Walk 10 feet (QC): 3 Walk 50 ft with 2 Turns(QC): 88 Walk 150 ft (QC): 88 Walking 10ft/uneven surface-QC: 88 Gait Persons Needed: 1 (plus w/c back up) Gait Assistive Device: Handheld Assist (hallway rail at left hand) Wheelchair Training Does the Pt Use a Wheelchair?: Yes Wheel 50 ft with 2 turns (QC): 5 Wheel 150 ft (QC): 5 Type of Wheelchair: Manual Stair Training 1 Step (curb) (QC): 88 4 Steps (QC): 88 12 Steps (QC): 88 Balance Picking up an Object (QC): 88 ADL-Treatment Eating (QC): 6 Oral Hygiene (QC): 6 (IND in w/c in front of sink.) Bathing Location: L Arm, R Arm, L Upper Leg, R Upper Leg, L Lower Leg (including foot), R Lower Leg (including foot), Chest, Abdomen, Buttocks, Perineal Area Shower/Bathe Self (QC): 4 (SBA for all tasks in sc.) Upper Body Dressing (QC): 3 (min A right side.) Lower Body Dressing (QC): 1 (TD due to Ax2 needed for safety in stance. though min A- pt able to thread BLE, pt requires assist in stance to veneer puller hips. ) On/Off Footwear (QC): 3 (min A ) Toileting Hygiene (QC): 7 Toilet Transfer (QC): 3 (mod A EOB to commode. Pt sits on commode with fair balance. 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 Defib in place Cardiomyopathy HTN Plan: Monitor dysphagia Cardiology consultation IRF protocol 04/11/20: Monitor BP Appreciate Cardiology 04/12/20: Monitor closely Pain management 04/13/20: Gabapentin Oxycodone 04/14/20: Increase Gabapentin Oxycodone BM regimen to increase today may need supp 04/15/20: BM++ Monitor pain of right side 04/16/20: Increase dose of Neurontin Maintain aggressive rehab 04/17/20: BM regimen to include supp Q48 hrs Monitor pain Monitor BP 04/18/20: Increased Gabpentin some more today BM regimen 04/19/20: Manage incontinence Right arm and right leg pain management 04/20/20: Maintain pain control Incontinence management BM regimen 04/21/20: Suppository [id number] Monitor closely Pain control 04/22/20: Continue BM regimen Monitor right sided pain 04/23/20: BM regimen PT OT Incontinence care 04/24/20: Monitor BP Fall risk BM regimen 04/25/20: No med changes Pain controlled 04/26/2020: Pain management Bowel regimen with suppository every 48 hours Continue intensive therapy 04/27/2020: Aggressive therapy Incontinence care Pain control 04/28/20: Monitor closely Periarea powder Monitor pain Check labs in am 04/29/20: Labs reviewed Monitor pain issues 04/30/20: Continue therapy Needs dispo 05/01/20: DC to NH at DC Monitor closely Pain continues and difficult to ascertain due to expressive aphasia 05/02/20: Pain control Incontinence care Needs NH placement (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
[2020-05-02] MEDS: BISACODYL 10 MG SUPP (DULCOLAX) PR PRN (12:04)
--- NOTE | 2020-05-02 12:15 | Occupational Ther Daily Note ---
OT Current Status-Daily Note Subjective Pt in bed upon arrival. Pt no c/o pain. Pt agreed to therapy. Mental Status/Objective Patient Orientation: Person, Unable to Assess ADL-Treatment Co- treatment with PT ( [id number]). Skill of two clinicians required for skilled instruction and care due to transfers and safety concerns. PT focused on transfers, sitting balance, standing balance. OT focused on UE exercise, movement, and hand placement. OT also focused on core strength and ADL skills. Pt lying supine in bed. Pt donned lower body clothing supine in bed. Mod A to thread feet into pants, leaning side to side to get pants over hips by self. Pt supine to EOB Mod A to guide feet to floor and sit up. Pt donned upper body clothing Mod A to thread R affected arm . Pt transferred from EOB to w/c Mod A. Pt propelled self to bathroom. Performed oral care SBA seated in wheelchair. Therapy Code Descriptions/Definitions Functional [place] Measure: 0=Not Assessed/NA 4=Minimal Assistance 1=Total Assistance 5=Supervision or Setup 2=Maximal Assistance 6=Modified [place] 3=Moderate Assistance 7=Complete IndependenceSCALE: Activities may be completed with or without assistive devices. 7-Ewmzhelfcl-bnkwjqf completes the activity by him/herself with no assistance from a helper. 5-Set-up or Clean-up Assistance-helper sets up or cleans up; patient completes activity. [place] assists only prior to or following the activity. 4-Supervision or Touching Assistance-helper provides verbal cues and/or touching/steadying and/or contact guard assistance as patient completes activity. Assistance may be provided throughout the activity or intermittently. 3-Partial/Moderate Assistance-helper does LESS THAN HALF the effort. [place] lifts, holds or supports trunk or limbs, but provides less than half the effort. 2-Substantial/Maximal Assistance-helper does MORE THAN HALF the effort. [place] lifts or holds trunk or limbs and provides more than half the effort. 8-Mkxtmpieg-jjabmk does ALL the effort. Patient does none of the effort to complete the activity. Or, the assistance of 2 or more helpers is required for the patient to complete the activity. If activity was not attempted, code reason: 7-Patient Refused. 9-Not Applicable-not attempted and the patient did not perform the activity before the current illness, exacerbation or injury. 10-Not Attempted due to Environmental Limitations-(lack of equipment, weather restraints, etc.). 88-Not Attempted due to Medical Conditions or Safety Concerns. Oral Hygiene (QC): 4 Upper Body Dressing (QC): 3 Lower Body Dressing (QC): 3 On/Off Footwear: 2 (Max assist to don shoes.) Other Treatment Pt propelled self to therapy gym. Pt transferred from w/c to mat Mod A. Noted subluxation of right shoulder joint, approximately 1 inch width. OT completed compression exercises, as well as gentle PROM to right shoulder. Placed right shoulder into appropriate position and applied rigid tape to promote stability and awareness of right shoulder. Pt. educated about the use of tape. Pt focused on sitting balance weight shifting from L to R and leaning forward and backwards with a person on each side of him for safety. Pt focused on standing balance in front of mirror to correct body alignment when leaning too far to the R, shifting weight L to R while having a person on each side of him for safety. Required mod assist for sit-stand with use of britni cane on right side, and with right UE placed in sling for support. Noted in stance that right knee would buckle, and required max assistance to position in appropriate extension pattern. Pt performed fine motor skills activity while seated back on mat to work on crossing midline. Pt gathered pegs on R side with L hand and placed them into the peg board. Completed this activity with increased cues to attend to right side. Pt demonstrating B UE exercise performing horizontal shoulder abduction/adduction, Self ROM shoulder flexion, elbow flexion/ extension completing 1 set of 10 reps, with cues to keep hands interlocked. Pt transferred from mat to w/c Mod A. Pt propelled self back to room. Pt transferred from w/c to chair Mod A. Call light/phone in reach. All needs met. It was noted during treatment that pt. was unable to answer questions regarding previous life. He was unable to answer where he was from, what he did for a living, or even what he is currently using in his wheelchair. He would state, "I don't know." Education OT Patient Education: Correct positioning, Exercise program, Modified ADL techniques, Progress toward Goal/Update tx plan, Purpose of tx/functional activities, Reviewed precautions, Rehab process, Transfer techniques, W/C management Teaching Recipient: Patient Teaching Methods: Demonstration, Discussion Response to Teaching: Verbalize Understanding, Return Demonstration, Reinfor cement Needed OT Short Term Goals Short Term Goals Eatin Oral hygiene: 5 Toileting hygiene: 2 Shower/bathe self: 2 Upper body dressin Lower body dressin Putting on/taking off footwear: 2 OT Dining Room Supervisor Goals Half-Way Goals Time Frame: Apr 24, 2020 Eating (QC): 6 Oral Hygiene (QC): 6 Toileting Hygiene (QC): 3 Shower/Bathe Self (QC): 3 Upper Body Dressing (QC): 6 Lower Body Dressing (QC): 3 On/Off Footwear (QC): 6 Additional Goals: 1-Demonstrate ADL Tasks, 2-Verbalize Understanding, 3- ImproveStrength/[place] 1=Demonstrate adherence to instructed precautions during ADL tasks. 2=Patient will verbalize/demonstrate understanding of assistive devices/modifications for ADL. 3=Patient will improve strength/tolerance for activity to enable patient to perform ADL's. OT Education/Plan Problem List/Assessment Assessment: Decreased Activ Tolerance, Decreased Safety Aware, Decreased UE Strength, Dependent Transfers, Impaired Bed Mobility, Impaired Cognition, Impaired Coordination, Impaired Funct Balance, Impaired I ADL's, Impaired Self- Care Skills, Restricted Funct UE ROM, Visual-Perceptual Deficit Discharge Recommendations Plan/Recommendations: Continue POC Therapy Discharge Recommendati: 24 Hour Supervision Treatment Plan/Plan of Care Treatment,Training & Education: Yes Patient would benefit from OT for education, treatment and training to promote independence in ADL's, mobility, safety and/or upper extremity function for ADL's. Plan of Care: ADL Retraining, Caregiver Training, Concurrent Therapy, Functional Mobility, Group Exercise/Act as Ind, Orthotic Fitting/Training, UE Funct Exercise/Act, UE Neuromus Re-Ed/Coord, Visual/Perceptual Retrain, W/C Management Training Treatment Duration: Apr 24, 2020 Frequency: At least 5 of 7 days/Wk (IRF) Estimated Hrs Per Day: 1.5 hours per day Agreement: Yes Rehab Potential: Fair Time/GCodes Start Time: 10:45 Stop Time: 12:00 Total Time Billed (hr/min): 75 Billed Treatment Time 1 visit- ADL 2 (30 mins), FA 3 (45 mins) Co-treatment PT ([id number]) See above note for designated roles NACCARATO,SEDA OT May 02, 2020 12:15
--- NOTE | 2020-05-02 12:25 | Physical Therapy Daily Note ---
PT Daily Note-Current Subjective Pt sitting in [facility] upon arrival. Pt agrees to PT/OT co-treat. Pain Location: Right Comment: Pt reports pain on R side, both UE & LE but doesn't rate. Mental Status Patient Orientation: Person, Place, Situation Transfers SCALE: Activities may be completed with or without assistive devices. 9-Acxkgsybsg-frofcrz completes the activity by him/herself with no assistance from a helper. 5-Set-up or Clean-up Assistance-helper sets up or cleans up; patient completes activity. [place] assists only prior to or following the activity. 4-Supervision or Touching Assistance-helper provides verbal cues and/or touching/steadying and/or contact guard assistance as patient completes activity. Assistance may be provided throughout the activity or intermittently. 3-Partial/Moderate Assistance-helper does LESS THAN HALF the effort. [place] lifts, holds or supports trunk or limbs, but provides less than half the effort. 2-Substantial/Maximal Assistance-helper does MORE THAN HALF the effort. [place] lifts or holds trunk or limbs and provides more than half the effort. 5-Jvufykcjq-bnoxlf does ALL the effort. Patient does none of the effort to complete the activity. Or, the assistance of 2 or more helpers is required for the patient to complete the activity. If activity was not attempted, code reason: 7-Patient Refused. 9-Not Applicable-not attempted and the patient did not perform the activity before the current illness, exacerbation or injury. 10-Not Attempted due to Environmental Limitations-(lack of equipment, weather restraints, etc.). 88-Not Attempted due to Medical Conditions or Safety Concerns. Sit to Stand (QC): 4 Chair/Kcm-ae-Ffhif Xfer(QC): 4 Weight Bearing Full Weight Bearing Full Weight Bearing Wheelchair Training Does the Pt Use a Wheelchair?: Yes Wheel 50 ft with 2 turns (QC): 5 Wheel 150 ft (QC): 5 Type of Wheelchair: Manual Exercises Seated Therapy Exercises: Sit to stand, Reaching activity Treatments Co- treatment with PT ( [id number]) skills of two clinicans required for skilled instruction and care due to transfers and safety concern. PT focused on transfers, sitting balance, standing balance. OT focused on UE exercise, hand placement. Pt propelled self to bathroom. Pt performed oral care SBA. Pt propelled self to therapy gym. Pt transferred from w/c to mat Mod A. Noted subluxation of right shoulder joint, approximately 1 inch width. OT completed compression exercises, as well as gentle PROM to right shoulder. Placed right shoulder into appropriate position and applied rigid tape to promote stability and awareness of right shoulder. Pt. educated about the use of tape. Pt focused on sitting balance weight shifting from L to R and leaning forward and backwards with a person on each side of him for safety. Pt focused on standing balance in front of mirror to correct body alignment when leaning too far to the R, shifting weight L to R while having a person on each side of him for safety. Required mod assist for sit-stand with use of britni cane on right side, and with right UE placed in sling for support. Noted in stance that right knee would buckle, and required max assistance to position in appropriate extension pattern. Pt performed fine motor skills activity while seated back on mat to work on crossing midline. Pt gathered pegs on R side with L hand and placed them into the peg board. Completed this activity with increased cues to attend to right side. Pt demonstrating B UE exercise performing horizontal shoulder abduction/adduction, Self ROM shoulder flexion, elbow flexion/ extension completing 1 set of 10 reps, with cues to keep hands interlocked. Pt transferred from mat to w/c Mod A. Pt propelled self back to room. Pt transferred from w/c to chair Mod A. Call light/phone in reach. All needs met. It was noted during treatment that pt. was unable to answer questions regarding previous life. He was unable to answer where he was from, what he did for a living, or even what he is currently using in his wheelchair. He would state, "I don't know." Assessment Current Status: Good Progress Pt is improving with core strength and balance. PT Short Term Goals Short Term Goals Time Frame: Apr 18, 2020 Roll Left & Right: 3 Sit to lyin Lying to sitting on side of be: 3 Sit to stand: 3 Chair/gav-ev-srirn transfer: 3 PT Integrated Marketing Intern Goals Integrated Marketing Intern Goals PT Integrated Marketing Intern Goals Time Frame: May 02, 2020 Roll Left & Right (QC): 3 (Zoya) Sit to Lying (QC): 3 (Zoya) Lying-Sitting on Side/Bed(QC): 3 (Zoya) Sit to Stand (QC): 3 (Zoya) Chair/Adc-rh-Mbpyf Xfer(QC): 3 (Zoya) Toilet Transfer (QC): 3 (Zyoa) Car Transfer (QC): 3 (Zoya) Does the Patient Walk: No and Walking Goal NOT indicated Walk 10 feet (QC): 88 Walk 50ft with 2 Turns (QC): 88 Walk 150 ft (QC): 88 Walking 10ft on Uneven Surface: 88 1 Step (curb) (QC): 88 4 Steps (QC): 88 12 Steps (QC): 88 Picking up an Object (QC): 88 Wheel 50 feet with 2 turns (QC: 4 Wheel 150 feet: 4 PT Plan Problem List Problem List: Activity Tolerance, Functional Strength, Safety, Balance, Transfer Treatment/Plan Treatment Plan: Continue Plan of Care Treatment Plan: Bed Mobility, Education, Functional Activity [place], Functional Strength, Group Therapy, Gait, Safety, Therapeutic Exercise, Transfers Treatment Duration: May 01, 2020 Frequency: At least 5 of 7 days/Wk (IRF) Estimated Hrs Per Day: 1.5 hours per day Patient and/or Family Agrees t: Yes Safety Risks/Education Patient Education: Transfer Techniques, Correct Positioning, Safety Issues Teaching Recipient: Patient Teaching Methods: Discussion Response to Teaching: Verbalize Understanding Time/GCodes Time In: 1045 Time Out: 1200 Total Billed Treatment Time: 75 Total Billed Treatment 1, [facility] (15m), FA x4 (60m) Co-treat w/OT for 75m [facility] May 02, 2020 12:25
--- NOTE | 2020-05-02 13:37 | Speech Therapy Daily Note ---
Speech Daily Progress Note Subjective Date Seen by Provider: May 02, 2020 Time Seen by Provider: 00:30 Patient was resting in his bed, however he was much more alert today. Objective Patient completed a series of general information y/n questions with 75% accuracy. He also completed general information questions with one word answers at 50% with moderate cuing. Assessment Assessment Current Status: Fair Progress Treatment Plan Continue Plan of Care Speech Short Term Goals Short Term Goals Short Term Goals 1) The patient will complete OME for improved speech production at each session with 80% or greater accuracy. 2) The patient will complete word finding tasks with 80% or greater accuracy. 3) The patient will complete expressive language tasks 80% or greater accuracy. 4) The patient will tolerate least restrictive diet level without s/s of aspiration at 80% or greater accuracy. 5) The patient will utilize compensatory strategies as trained 80% or greater accuracy. Speech Care Home Goals Care Home Goals Patient will improve cognitive-communication abilities for completion of daily needs with minimal assist. Patient will maintain adequate nutrition/hydration via safe effective swallow function. Speech-Plan Patient/Family Goals Patient/Family Goals: Patient will discharge to another facility upon completion of the details. Treatment Plan Speech Therapy Treatment Plan: Continue Plan of Care Treatment Duration: Apr 29, 2020 Frequency: 4 times per week (Patient will receive skilled ST 4-5x per week) Estimated Hrs Per Day: .5 hour per day Rehab Potential: Guarded Barriers to Learning: Patient's recent CVA of three and expressive aphasia Pt/Family Agrees to Plan: Yes Safety Risks/Education Teaching Recipient: Patient Teaching Methods: Demonstration, Discussion Response to Teaching: Verbalize Understanding, Return Demonstration Education Topics Provided: Continued safety within his room, Continued safe oral intake Time Speech Therapy Time In: 10:00 Speech Therapy Time Out: 10:30 Total Billed Time: 30 Billed Treatment Time 1, SLTS, DYST QUALITY CODES: EXPRESSION OF IDEAS/WANTS: 3 UNDERSTANDING VERBAL CONTENT: 3 REPETITION OF 3 WORDS: 3 BRIEF INTERVIEW: YES TEMPORAL ORIENTATION: YEAR: CORRECT, MONTH: NO ANSWER, DAY: NO ANSWER RECALL: SOCK: NO, COLOR: NO, BED: NO MEMORY/RECALL ABILITY: THAT HE IS IN THE [facility] May 02, 2020 13:37
[2020-05-02 16:52] VITALS: BP 97/63
[2020-05-03 05:49] VITALS: BP 91/57
[2020-05-03 07:45] VITALS: BP 100/67
[2020-05-03] MEDS: MICONAZOLE 2% POWDER (DESENEX AF) 90 GM TOP SCH ×2 (07:50→21:04)
[2020-05-03] MEDS: DICLOFENAC 1% GEL 100 GM (VOLTAREN) TUBE TOP SCH ×4 (07:51→21:04)
--- NOTE | 2020-05-03 08:01 | Occupational Ther Daily Note ---
OT Current Status-Daily Note Subjective OT individual tx: [id number]: Pt alert in bed this am. Pt agrees to OT tx. Pt denies pain. OT/ PT co-treat from [id number], with OT addressing ADLs, UE movement, problem solving and sitting balance while PT addresses LE movement, strength, balance, fx transfers. ADL-Treatment Therapy Code Descriptions/Definitions Functional [place] Measure: 0=Not Assessed/NA 4=Minimal Assistance 1=Total Assistance 5=Supervision or Setup 2=Maximal Assistance 6=Modified [place] 3=Moderate Assistance 7=Complete IndependenceSCALE: Activities may be completed with or without assistive devices. 0-Dlklghbxwy-xyvvwns completes the activity by him/herself with no assistance from a helper. 5-Set-up or Clean-up Assistance-helper sets up or cleans up; patient completes activity. [place] assists only prior to or following the activity. 4-Supervision or Touching Assistance-helper provides verbal cues and/or touching/steadying and/or contact guard assistance as patient completes activity. Assistance may be provided throughout the activity or intermittently. 3-Partial/Moderate Assistance-helper does LESS THAN HALF the effort. [place] lifts, holds or supports trunk or limbs, but provides less than half the effort. 2-Substantial/Maximal Assistance-helper does MORE THAN HALF the effort. [place] lifts or holds trunk or limbs and provides more than half the effort. 9-Hggkmohje-yqjtrv does ALL the effort. Patient does none of the effort to complete the activity. Or, the assistance of 2 or more helpers is required for the patient to complete the activity. If activity was not attempted, code reason: 7-Patient Refused. 9-Not Applicable-not attempted and the patient did not perform the activity before the current illness, exacerbation or injury. 10-Not Attempted due to Environmental Limitations-(lack of equipment, weather restraints, etc.). 88-Not Attempted due to Medical Conditions or Safety Concerns. Eating (QC): 6 Oral Hygiene (QC): 5 (s/u oral care.) Bathing Location: L Arm, R Arm, L Upper Leg, R Upper Leg, L Lower Leg (including foot), R Lower Leg (including foot), Chest, Abdomen, Buttocks, Perineal Area Shower/Bathe Self (QC): 4 (CGA during LB tasks, SBA all other tasks while on sc. ) Upper Body Dressing (QC): 3 (min A R UE) Lower Body Dressing (QC): 1 (TD due to need of 2 people: Pt completes L LE threading, OT completes RLE, sit to stand with min A/ CGA by PT while OT addresses hiking over hips. ) On/Off Footwear: 3 (Pt dons shoes with min A for R foot) Toileting Hygiene (QC): 1 (TD post BM due to need of 2 people: PT to stand pt and OT wipes with max A) Toilet Transfer (QC): 3 (mod A SPT) Other Treatment OT individual tx: [id number]: Pt has eaten all food with IND (no need to cut due to pt's modified diet). Pt bed mob with CGA. Pt SPT to chair placed on strong side with min A. Pt completes oral care with s/u and minimal cueing this date due to problem solving with toothpaste. Pt left in recliner with all needs met, call light in reach, nursing present. OT/ PT co-treat: [id number]: Pt agrees to showering. Completes SPT to w/c with min A. Completes stance at gbs with CGA, w/c replaced with sc. Showering in sc and dressing post shower as outlined. Pt wheels self to hallway, completing 1 round of ambulation with use of L sided side rail and PT assist/ OT addresses UE placement and problem solving (fair). Pt utilizes britni walker and quad cane for ambulation with 2 person assist/ w/c to follow with max A. Pt returns to room, SPT to recliner with all needs met, call light in reach, LEs elevated. Education OT Patient Education: Correct positioning, Exercise program, Home exercise program, Progress toward Goal/Update tx plan, Purpose of tx/functional activities, Safety issues, Transfer techniques Teaching Recipient: Patient Teaching Methods: Demonstration, Discussion Response to Teaching: Verbalize Understanding, Return Demonstration, Reinforcement Needed OT Short Term Goals Short Term Goals Eatin Oral hygiene: 5 Toileting hygiene: 2 Shower/bathe self: 2 Upper body dressin Lower body dressin Putting on/taking off footwear: 2 OT Detention Goals Detention Goals Time Frame: Apr 24, 2020 Eating (QC): 6 Oral Hygiene (QC): 6 Toileting Hygiene (QC): 3 Shower/Bathe Self (QC): 3 Upper Body Dressing (QC): 6 Lower Body Dressing (QC): 3 On/Off Footwear (QC): 6 Additional Goals: 1-Demonstrate ADL Tasks, 2-Verbalize Understanding, 3- ImproveStrength/[place] 1=Demonstrate adherence to instructed precautions during ADL tasks. 2=Patient will verbalize/demonstrate understanding of assistive devices/modifications for ADL. 3=Patient will improve strength/tolerance for activity to enable patient to perform ADL's. OT Education/Plan Problem List/Assessment Assessment: Decreased Activ Tolerance, Decreased UE Strength, Dependent Transfers, Impaired Bed Mobility, Impaired Cognition, Impaired Coordination, Impaired Funct Balance, Impaired I ADL's, Impaired Self-Care Skills, Restricted Funct UE ROM, Visual-Perceptual Deficit Discharge Recommendations Plan/Recommendations: Continue POC Therapy Discharge Recommendati: 24 Hour Supervision, Post Acute OT Treatment Plan/Plan of Care Treatment,Training & Education: Yes Patient would benefit from OT for education, treatment and training to promote independence in ADL's, mobility, safety and/or upper extremity function for ADL's. Plan of Care: ADL Retraining, Caregiver Training, Concurrent Therapy, Functional Mobility, Group Exercise/Act as Ind, Orthotic Fitting/Training, UE Funct Exercise/Act, UE Neuromus Re-Ed/Coord, Visual/Perceptual Retrain, W/C Management Training Treatment Duration: Apr 24, 2020 Frequency: At least 5 of 7 days/Wk (IRF) Estimated Hrs Per Day: 1.5 hours per day Agreement: Yes Rehab Potential: Fair Time/GCodes Start Time: 07:30 (0800) Stop Time: 07:45 (0900) Total Time Billed (hr/min): 75 Billed Treatment Time 1, ADL (15) OT/ PT co-treat from [id number], with OT addressing ADLs, UE movement, problem solving and sitting balance while PT addresses LE movement, strength, balance, fx transfers. 1, ADL 3 (45), EX (15)= 60 FATIMAH KERNS OTR May 03, 2020 08:00
[2020-05-03] MEDS: ASPIRIN 81 MG CHEW (CHILDREN'S ASA) PO SCH (08:17)
[2020-05-03] MEDS: DOCUSATE SODIUM 100 MG (COLACE) CAP PO SCH ×2 (08:17→21:10)
[2020-05-03] MEDS: GABAPENTIN 400 MG (NEURONTIN) CAP PO SCH ×2 (08:17→21:03)
[2020-05-03] MEDS: APIXABAN 5 MG (ELIQUIS) TABLET PO SCH ×2 (08:17→21:03)
[2020-05-03] MEDS: BISOPROLOL 5 MG TAB (ZEBETA) PO SCH ×2 (08:17→14:10)
[2020-05-03] MEDS: SENNA W/DOCUSATE (SENOKOT S) TABLET PO SCH ×2 (08:17→21:11)
[2020-05-03] MEDS: polyethylene glycoL POWDER 17 GM (MIRALAX) PACK PO SCH ×2 (08:18→21:11)
--- NOTE | 2020-05-03 09:04 | Physical Therapy Daily Note ---
PT Daily Note-Current Subjective Expresses that he is tired and Rx is fatiguing. Agrees to PT OT co Rx Pain Location: No Pain Reported Mental Status Patient Orientation: Non-Verbal/Aphasic Attachments: Other-See Comments (mask, RUE sling, RLE knee immoblizer) Transfers SCALE: Activities may be completed with or without assistive devices. 4-Pplslgddvr-tfuuurx completes the activity by him/herself with no assistance from a helper. 5-Set-up or Clean-up Assistance-helper sets up or cleans up; patient completes activity. [place] assists only prior to or following the activity. 4-Supervision or Touching Assistance-helper provides verbal cues and/or touching/steadying and/or contact guard assistance as patient completes activity. Assistance may be provided throughout the activity or intermittently. 3-Partial/Moderate Assistance-helper does LESS THAN HALF the effort. [place] lifts, holds or supports trunk or limbs, but provides less than half the effort. 2-Substantial/Maximal Assistance-helper does MORE THAN HALF the effort. [place] lifts or holds trunk or limbs and provides more than half the effort. 8-Xmduktioj-noqvzz does ALL the effort. Patient does none of the effort to complete the activity. Or, the assistance of 2 or more helpers is required for the patient to complete the activity. If activity was not attempted, code reason: 7-Patient Refused. 9-Not Applicable-not attempted and the patient did not perform the activity before the current illness, exacerbation or injury. 10-Not Attempted due to Environmental Limitations-(lack of equipment, weather restraints, etc.). 88-Not Attempted due to Medical Conditions or Safety Concerns. Sit to Stand (QC): 4 Chair/Krv-ub-Mgiyc Xfer(QC): 4 pt. pulls up at shower bar or bed rail or //bars with CGA, SPTs and sit to stand pushing from w/c require min assist Weight Bearing Full Weight Bearing Full Weight Bearing Gait Training Does the Patient Walk?: Yes Walk 10 feet (QC): 3 Gait Persons Needed: 1 (and w/c f/u close behind) 12 ft at rail in hallway and attempted gait with britni walker, but unable to get balance and stance, requires mod to max assist to position RLE and advance it safely, w/c close behind Wheelchair Training Does the Pt Use a Wheelchair?: Yes Wheel 50 ft with 2 turns (QC): 4 Type of Wheelchair: Manual propels w/c indep, affixes left brake, needs assist R brake Exercises Seated Therapy Exercises: Ankle pumps, Sit to stand, Long arc quads, Hip flexion Seated Reps: 15 Treatments CoRx OT PT for doffing and doffing clothing , showering , PT guiding , LE and TRFs, OT guiding UEs and ADL tasks Assessment Current Status: Good Progress PT Short Term Goals Short Term Goals Time Frame: Apr 18, 2020 Roll Left & Right: 3 Sit to lyin Lying to sitting on side of be: 3 Sit to stand: 3 Chair/bcl-gu-clguv transfer: 3 PT Clothing Designer Goals Detention Goals PT Detention Goals Time Frame: May 02, 2020 Roll Left & Right (QC): 3 (Zoya) Sit to Lying (QC): 3 (Zoya) Lying-Sitting on Side/Bed(QC): 3 (Zoya) Sit to Stand (QC): 3 (Zoya) Chair/Vft-zm-Xyqau Xfer(QC): 3 (Zoya) Toilet Transfer (QC): 3 (Zoya) Car Transfer (QC): 3 (Zoya) Does the Patient Walk: No and Walking Goal NOT indicated Walk 10 feet (QC): 88 Walk 50ft with 2 Turns (QC): 88 Walk 150 ft (QC): 88 Walking 10ft on Uneven Surface: 88 1 Step (curb) (QC): 88 4 Steps (QC): 88 12 Steps (QC): 88 Picking up an Object (QC): 88 Wheel 50 feet with 2 turns (QC: 4 Wheel 150 feet: 4 PT Plan Treatment/Plan Treatment Plan: Continue Plan of Care Treatment Plan: Bed Mobility, Education, Functional Activity [place], Functional Strength, Group Therapy, Gait, Safety, Therapeutic Exercise, Transfers Treatment Duration: May 01, 2020 Frequency: At least 5 of 7 days/Wk (IRF) Estimated Hrs Per Day: 1.5 hours per day Patient and/or Family Agrees t: Yes Safety Risks/Education Patient Education: Gait Training, Transfer Techniques, Correct Positioning, W/C Management, Disease Process, Safety Issues Teaching Recipient: Patient Teaching Methods: Demonstration, Discussion Response to Teaching: Verbalize Understanding, Return Demonstration, Reinforcement Needed Time/GCodes Time In: 800 Time Out: 900 Total Billed Treatment Time: 60 Total Billed Treatment 1,GT15m,FA45m (co Rx 60m) ZAIRA GALEANA SCHEDULE MAKER May 03, 2020 09:04
[2020-05-03 09:22] VITALS: BP 100/60
--- NOTE | 2020-05-03 10:16 | PM&R Progress Note ---
Subjective HPI/CC On Admission Date Seen by Provider: May 03, 2020 Time Seen by Provider: 10:30 Subjective/Events-last exam 05/02/20: No major changes More alert today In chair today No BM for several days and refuses suppository 05/01/20: No major changes Refuses suppository Pain on the right side continues Incontinent Sister did family training and felt like he will need to go to a nursing facility [facility] [place] was sent a referral 04/30/20: No major changes Laxatives were refused and he is having a BM every other day without the suppository Denies any significant new issues 04/29/20: Patient reports no major issues No pain reported Pain meds are helpful 04/28/20: Periarea red so will start antifungal powder No pain reported otherwise Incontinence will require 14/12 nursing care along with severe deficit 04/27/2020: Incontinence of both bowel and bladder are limitations Denies any significant new issues Pain is pretty well controlled on the right side for flaccidity muscle spasms 04/26/2020: Patient denies any pain Incontinence requires nursing care 14/12 Pain is pretty well controlled Expressive aphasia makes it difficult to communicate 04/25/20: No major issues Pain controlled Participation with PT 04/24/20: Pt doing pretty well Bowels move after suppository every 48 hrs Decreasing pain medication Decreasing Cozaar due to hypotension per cardiology 04/23/20: BM after suppository every 48hrs Gabapentin BID seems to be working pretty well Using Oxycodone when Gabapentin is not enough No falls 04/22/20: No major issues Expressive aphasia continues Bowels moved yesterday after suppository given every 48 hours 04/21/20: Suppository today and BM Incontinent of B/B Pain improved Does not need to increase Gabapentin 04/20/20: BM yesterday Pain improved Sleepy today Doing better Incontinence : Improve right sided nerve pain Xanax and pain pill helps him BM after suppository Q 48 hours Incontinent of B/B 04/18/20: BM 04/17/20 Eliquis causes blurry vision per sister so will inquire with Dr Gibson regarding Xarelto Incontinent 04/17/20: Bowels not moving so will initiate Dulcolax suppository every 48hrs after laxatives given and he is agreeable for that plan Denies any significant new issues Pain is getting much better with the Gabapentin twice daily and Oxycodone 04/16/20: Right-sided pain still so increased Gabapentin to 300 Mg BID Xanax will help too Oxycodone also helps 04/15/20: Gabapentin maintained Oxycodone maintained Confusion noted? 04/14/20: Monitoring BP Pain right side still present and will increase Gabapentin 04/13/20: Right arm and right leg pain and issue Oxycodone not really helping Nerve pain so will give Gabapentin 04/12/20: Severe pain on right side Oxycodone ordered Participating in therapies well No other pain Pt doing pretty well Expressive aphasia is an issue WBC is 12.4 CMP normal Consulting cardiology Overall doing very well Conferred with RN Checked meds and labs Reviewed therapy notes Objective Exam Vital Signs Vital Signs Date Time Temp Pulse Resp B/P (MAP) Pulse Ox O2 Delivery O2 Flow Rate FiO2 05/03/20 09:22 80 100/60 (73) 05/03/20 07:45 18 100 Room Air 05/03/20 05:49 36.1 Capillary Refill : Less Than 3 Seconds General Appearance: No Apparent Distress, WD/WN, Chronically ill HEENT: PERRL/EOMI, Normal ENT Inspection, Pharynx Normal Neck: Full Range of Motion, Normal Inspection, Non Tender, Supple, Carotid Bruit Respiratory: Chest Non Tender, Lungs Clear, Normal Breath Sounds, No Accessory Muscle Use, No Respiratory Distress Cardiovascular: Regular Rate, Rhythm, No Edema, No Gallop, No JVD, No Murmur, Normal Peripheral Pulses Gastrointestinal: Normal Bowel Sounds, No Organomegaly, No Pulsatile Mass, Non Tender, Soft Back: Normal Inspection, No CVA Tenderness, No Vertebral Tenderness Extremity: Normal Capillary Refill, Normal Inspection, Normal Range of Motion, Non Tender, No Calf Tenderness, No Pedal Edema Neurologic/Psychiatric: Alert, Normal Mood/Affect, Abnormal Gait, Aphasia, Depressed Affect, Disoriented, Motor Weakness (right sided flaccidity) Skin: Normal Color, Warm/Dry Lymphatic: No Adenopathy Results/Procedures Lab Patient resulted labs reviewed. FIM Transfers Therapy Code Descriptions/Definitions Functional [place] Measure: 0=Not Assessed/NA 4=Minimal Assistance 1=Total Assistance 5=Supervision or Setup 2=Maximal Assistance 6=Modified [place] 3=Moderate Assistance 7=Complete IndependenceSCALE: Activities may be completed with or without assistive devices. 5-Aqnmqtfibx-eossamv completes the activity by him/herself with no assistance from a helper. 5-Set-up or Clean-up Assistance-helper sets up or cleans up; patient completes activity. [place] assists only prior to or following the activity. 4-Supervision or Touching Assistance-helper provides verbal cues and/or touching/steadying and/or contact guard assistance as patient completes activity. Assistance may be provided throughout the activity or intermittently. 3-Partial/Moderate Assistance-helper does LESS THAN HALF the effort. [place] lifts, holds or supports trunk or limbs, but provides less than half the effort. 2-Substantial/Maximal Assistance-helper does MORE THAN HALF the effort. [place] lifts or holds trunk or limbs and provides more than half the effort. 1-Cmbhywzoy-fakqjs does ALL the effort. Patient does none of the effort to complete the activity. Or, the assistance of 2 or more helpers is required for the patient to complete the activity. If activity was not attempted, code reason: 7-Patient Refused. 9-Not Applicable-not attempted and the patient did not perform the activity before the current illness, exacerbation or injury. 10-Not Attempted due to Environmental Limitations-(lack of equipment, weather restraints, etc.). 88-Not Attempted due to Medical Conditions or Safety Concerns. Roll Left to Right (QC): 4 Sit to Lying (QC): 5 Sit to Stand (QC): 4 Chair/Qeq-yn-Agrbz Xfer(QC): 4 Car Transfer (QC): 2 Gait Training Does the Patient Walk?: Yes Distance: 20'x3 Walk 10 feet (QC): 3 Walk 50 ft with 2 Turns(QC): 88 Walk 150 ft (QC): 88 Walking 10ft/uneven surface-QC: 88 Gait Persons Needed: 1 (and w/c f/u close behind) Gait Assistive Device: Handheld Assist (hallway rail at left hand) Wheelchair Training Does the Pt Use a Wheelchair?: Yes Wheel 50 ft with 2 turns (QC): 4 Wheel 150 ft (QC): 5 Type of Wheelchair: Manual Stair Training 1 Step (curb) (QC): 88 4 Steps (QC): 88 12 Steps (QC): 88 Balance Picking up an Object (QC): 88 ADL-Treatment Eating (QC): 6 Oral Hygiene (QC): 5 (s/u oral care.) Bathing Location: L Arm, R Arm, L Upper Leg, R Upper Leg, L Lower Leg (including foot), R Lower Leg (including foot), Chest, Abdomen, Buttocks, Perineal Area Shower/Bathe Self (QC): 4 (CGA during LB tasks, SBA all other tasks while on sc. ) Upper Body Dressing (QC): 3 (min A R UE) Lower Body Dressing (QC): 1 (TD due to need of 2 people: Pt completes L LE threading, OT completes RLE, sit to stand with min A/ CGA by PT while OT addresses hiking over hips. 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 Defib in place Cardiomyopathy HTN Plan: Monitor dysphagia Cardiology consultation IRF protocol 04/11/20: Monitor BP Appreciate Cardiology 04/12/20: Monitor closely Pain management 04/13/20: Gabapentin Oxycodone 04/14/20: Increase Gabapentin Oxycodone BM regimen to increase today may need supp 04/15/20: BM++ Monitor pain of right side 04/16/20: Increase dose of Neurontin Maintain aggressive rehab 04/17/20: BM regimen to include supp Q48 hrs Monitor pain Monitor BP 04/18/20: Increased Gabpentin some more today BM regimen 04/19/20: Manage incontinence Right arm and right leg pain management 04/20/20: Maintain pain control Incontinence management BM regimen 04/21/20: Suppository [id number] Monitor closely Pain control 04/22/20: Continue BM regimen Monitor right sided pain 04/23/20: BM regimen PT OT Incontinence care 04/24/20: Monitor BP Fall risk BM regimen 04/25/20: No med changes Pain controlled 04/26/2020: Pain management Bowel regimen with suppository every 48 hours Continue intensive therapy 04/27/2020: Aggressive therapy Incontinence care Pain control 04/28/20: Monitor closely Periarea powder Monitor pain Check labs in am 04/29/20: Labs reviewed Monitor pain issues 04/30/20: Continue therapy Needs dispo 05/01/20: DC to NH at DC Monitor closely Pain continues and difficult to ascertain due to expressive aphasia 05/02/20: Pain control Incontinence care Needs NH placement (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
--- NOTE | 2020-05-03 11:33 | NUR ---
Paged Dr. Small re: B/P. Notified Dr. Onofre earlier this morning when giving nsg report.
--- NOTE | 2020-05-03 12:07 | Physical Therapy Daily Note ---
PT Daily Note-Current Subjective Pt. c/o fatigue and wants to go to bed. Pain Location: No Pain Reported Mental Status Patient Orientation: Non-Verbal/Aphasic Transfers SCALE: Activities may be completed with or without assistive devices. 1-Bvdjqzwago-kobqsve completes the activity by him/herself with no assistance from a helper. 5-Set-up or Clean-up Assistance-helper sets up or cleans up; patient completes activity. [place] assists only prior to or following the activity. 4-Supervision or Touching Assistance-helper provides verbal cues and/or touching/steadying and/or contact guard assistance as patient completes activity. Assistance may be provided throughout the activity or intermittently. 3-Partial/Moderate Assistance-helper does LESS THAN HALF the effort. [place] lifts, holds or supports trunk or limbs, but provides less than half the effort. 2-Substantial/Maximal Assistance-helper does MORE THAN HALF the effort. [place] lifts or holds trunk or limbs and provides more than half the effort. 1-Mmnibjlcy-drjqua does ALL the effort. Patient does none of the effort to complete the activity. Or, the assistance of 2 or more helpers is required for the patient to complete the activity. If activity was not attempted, code reason: 7-Patient Refused. 9-Not Applicable-not attempted and the patient did not perform the activity before the current illness, exacerbation or injury. 10-Not Attempted due to Environmental Limitations-(lack of equipment, weather restraints, etc.). 88-Not Attempted due to Medical Conditions or Safety Concerns. sit to sup SBA to CGA , sit to stand min Weight Bearing Full Weight Bearing Full Weight Bearing Gait Training Gait Assistive Device: Walker Jose attempted jose walker gait chair to bed, approx 6 ft with assist of nurse, without knee immoblizer on R knee. Pt. required mod to max assist to stablilze R knee in to extension and had great difficulty negotiating the few steps direction pradhan to the bed, assist of 2 was needed for safety etc Exercises Supine Ex: Bridging, Ankle pumps, Quad Set, Rolling, Glut sets, Heel Slides, Scooting, Straight leg raise, Hip abd/add Supine Reps: 15 (assistance needed for R LE.) Assessment Current Status: Good Progress min mass extension noted , no quad tone, no ant tib tone, PT Short Term Goals Short Term Goals Time Frame: Apr 18, 2020 Roll Left & Right: 3 Sit to lyin Lying to sitting on side of be: 3 Sit to stand: 3 Chair/cik-hc-kmigq transfer: 3 PT Client Services Assistant Goals Client Services Assistant Goals PT Client Services Assistant Goals Time Frame: May 02, 2020 Roll Left & Right (QC): 3 (Zoya) Sit to Lying (QC): 3 (Zoya) Lying-Sitting on Side/Bed(QC): 3 (Zoya) Sit to Stand (QC): 3 (Zoya) Chair/Iwq-yy-Hhnbo Xfer(QC): 3 (Zoya) Toilet Transfer (QC): 3 (Zoya) Car Transfer (QC): 3 (Zoya) Does the Patient Walk: No and Walking Goal NOT indicated Walk 10 feet (QC): 88 Walk 50ft with 2 Turns (QC): 88 Walk 150 ft (QC): 88 Walking 10ft on Uneven Surface: 88 1 Step (curb) (QC): 88 4 Steps (QC): 88 12 Steps (QC): 88 Picking up an Object (QC): 88 Wheel 50 feet with 2 turns (QC: 4 Wheel 150 feet: 4 PT Plan Treatment/Plan Treatment Plan: Continue Plan of Care Treatment Plan: Bed Mobility, Education, Functional Activity [place], Functional Strength, Group Therapy, Gait, Safety, Therapeutic Exercise, Transfers Treatment Duration: May 01, 2020 Frequency: At least 5 of 7 days/Wk (IRF) Estimated Hrs Per Day: 1.5 hours per day Patient and/or Family Agrees t: Yes Safety Risks/Education Patient Education: Gait Training, Transfer Techniques, Correct Positioning, Disease Process, Safety Issues Teaching Recipient: Patient Teaching Methods: Demonstration, Discussion Response to Teaching: Verbalize Understanding, Return Demonstration, Reinforcement Needed Time/GCodes Time In: 1045 Time Out: 1100 Total Billed Treatment Time: 15 Total Billed Treatment 1,EX15m ZAIRA GALEANA MINE MANAGER May 03, 2020 12:07
--- NOTE | 2020-05-03 13:32 | NUR ---
CM/SS DISCHARGE PLANNING Negotiations continue with network facility [facility] regarding accepting patient. [facility] had bed open up today, referral discussed with Rae there and faxed for their review. Review Medicare.gov nursing facility comparisons, will pursue regional facilities if necessary. Patient and his sister/POA had requested local pertaining to familiarity of area and travel distance. Followup Wednesday.
--- NOTE | 2020-05-03 13:45 | Speech Therapy Daily Note ---
Speech Daily Progress Note Subjective Date Seen by Provider: May 03, 2020 Time Seen by Provider: 00:30 Patient was resting in his bed following lunch. Patient participated well with ST therapy. Objective Patient completed a series of fill in the blank at beginning level at 50% with moderate verbal cues. Patient does exhibit echolalia with presented words. Assessment Assessment Current Status: Fair Progress Treatment Plan Continue Plan of Care Speech Short Term Goals Short Term Goals Short Term Goals 1) The patient will complete OME for improved speech production at each session with 80% or greater accuracy. 2) The patient will complete word finding tasks with 80% or greater accuracy. 3) The patient will complete expressive language tasks 80% or greater accuracy. 4) The patient will tolerate least restrictive diet level without s/s of aspiration at 80% or greater accuracy. 5) The patient will utilize compensatory strategies as trained 80% or greater accuracy. Speech Snf Goals Snf Goals Patient will improve cognitive-communication abilities for completion of daily needs with minimal assist. Patient will maintain adequate nutrition/hydration via safe effective swallow function. Speech-Plan Patient/Family Goals Patient/Family Goals: Patient will discharge to a local SNF. Treatment Plan Speech Therapy Treatment Plan: Continue Plan of Care Treatment Duration: Apr 29, 2020 Frequency: 4 times per week (Patient will receive skilled ST 4-5x per week) Estimated Hrs Per Day: .5 hour per day Rehab Potential: Fair Barriers to Learning: Patient's recent CVA and expressive aphasia Pt/Family Agrees to Plan: Yes Safety Risks/Education Teaching Recipient: Patient Teaching Methods: Demonstration, Discussion Response to Teaching: Verbalize Understanding, Return Demonstration Education Topics Provided: Continued safety within his room, continued safety with oral intake Time Speech Therapy Time In: 13:00 Speech Therapy Time Out: 13:30 Total Billed Time: 30 Billed Treatment Time 1, SLDECLAN, DYST FIDEL Hooper May 03, 2020 13:45
[2020-05-03] MEDS: SPIRONOLACTONE 25 MG (ALDACTONE) TAB PO SCH (14:10)
[2020-05-03 18:00] VITALS: BP 110/72
[2020-05-04 05:36] VITALS: BP 113/75
--- NOTE | 2020-05-04 07:07 | PM&R Progress Note ---
Subjective HPI/CC On Admission Date Seen by Provider: May 04, 2020 Time Seen by Provider: 12:30 Subjective/Events-last exam 05/04/20: No major issues BM yesterday no supp used 05/02/20: No major changes More alert today In chair today No BM for several days and refuses suppository 05/01/20: No major changes Refuses suppository Pain on the right side continues Incontinent Sister did family training and felt like he will need to go to a nursing facility [facility] was sent a referral 04/30/20: No major changes Laxatives were refused and he is having a BM every other day without the suppository Denies any significant new issues 04/29/20: Patient reports no major issues No pain reported Pain meds are helpful 04/28/20: Periarea red so will start antifungal powder No pain reported otherwise Incontinence will require 14/12 nursing care along with severe deficit 04/27/2020: Incontinence of both bowel and bladder are limitations Denies any significant new issues Pain is pretty well controlled on the right side for flaccidity muscle spasms 04/26/2020: Patient denies any pain Incontinence requires nursing care 14/12 Pain is pretty well controlled Expressive aphasia makes it difficult to communicate 04/25/20: No major issues Pain controlled Participation with PT 04/24/20: Pt doing pretty well Bowels move after suppository every 48 hrs Decreasing pain medication Decreasing Cozaar due to hypotension per cardiology 04/23/20: BM after suppository every 48hrs Gabapentin BID seems to be working pretty well Using Oxycodone when Gabapentin is not enough No falls 04/22/20: No major issues Expressive aphasia continues Bowels moved yesterday after suppository given every 48 hours 04/21/20: Suppository today and BM Incontinent of B/B Pain improved Does not need to increase Gabapentin 04/20/20: BM yesterday Pain improved Sleepy today Doing better Incontinence : Improve right sided nerve pain Xanax and pain pill helps him BM after suppository Q 48 hours Incontinent of B/B 04/18/20: BM 04/17/20 Eliquis causes blurry vision per sister so will inquire with Dr Gibson regarding Xarelto Incontinent 04/17/20: Bowels not moving so will initiate Dulcolax suppository every 48hrs after laxatives given and he is agreeable for that plan Denies any significant new issues Pain is getting much better with the Gabapentin twice daily and Oxycodone 04/16/20: Right-sided pain still so increased Gabapentin to 300 Mg BID Xanax will help too Oxycodone also helps 04/15/20: Gabapentin maintained Oxycodone maintained Confusion noted? 04/14/20: Monitoring BP Pain right side still present and will increase Gabapentin 04/13/20: Right arm and right leg pain and issue Oxycodone not really helping Nerve pain so will give Gabapentin 04/12/20: Severe pain on right side Oxycodone ordered Participating in therapies well No other pain Pt doing pretty well Expressive aphasia is an issue WBC is 12.4 CMP normal Consulting cardiology Overall doing very well Conferred with RN Checked meds and labs Reviewed therapy notes Review of Systems General: Fatigue Neurological: Weakness, Incoordination Objective Exam Vital Signs Vital Signs Date Time Temp Pulse Resp B/P (MAP) Pulse Ox O2 Delivery O2 Flow Rate FiO2 05/05/20 06:56 36.4 80 18 129/65 (86) 97 Room Air Capillary Refill : Less Than 3 Seconds General Appearance: No Apparent Distress, WD/WN, Chronically ill HEENT: PERRL/EOMI, Normal ENT Inspection, Pharynx Normal Neck: Full Range of Motion, Normal Inspection, Non Tender, Supple, Carotid Bruit Respiratory: Chest Non Tender, Lungs Clear, Normal Breath Sounds, No Accessory Muscle Use, No Respiratory Distress Cardiovascular: Regular Rate, Rhythm, No Edema, No Gallop, No JVD, No Murmur, Normal Peripheral Pulses Gastrointestinal: Normal Bowel Sounds, No Organomegaly, No Pulsatile Mass, Non Tender, Soft Back: Normal Inspection, No CVA Tenderness, No Vertebral Tenderness Extremity: Normal Capillary Refill, Normal Inspection, Normal Range of Motion, Non Tender, No Calf Tenderness, No Pedal Edema Neurologic/Psychiatric: Alert, Normal Mood/Affect, Abnormal Gait, Aphasia, Depressed Affect, Disoriented, Motor Weakness (right sided flaccidity) Skin: Normal Color, Warm/Dry Lymphatic: No Adenopathy Results/Procedures Lab Patient resulted labs reviewed. FIM Transfers Therapy Code Descriptions/Definitions Functional [place] Measure: 0=Not Assessed/NA 4=Minimal Assistance 1=Total Assistance 5=Supervision or Setup 2=Maximal Assistance 6=Modified [place] 3=Moderate Assistance 7=Complete IndependenceSCALE: Activities may be completed with or without assistive devices. 3-Frwcwtpnbo-ywgnfay completes the activity by him/herself with no assistance from a helper. 5-Set-up or Clean-up Assistance-helper sets up or cleans up; patient completes activity. [place] assists only prior to or following the activity. 4-Supervision or Touching Assistance-helper provides verbal cues and/or touching/steadying and/or contact guard assistance as patient completes activity. Assistance may be provided throughout the activity or intermittently. 3-Partial/Moderate Assistance-helper does LESS THAN HALF the effort. [place] lifts, holds or supports trunk or limbs, but provides less than half the effort. 2-Substantial/Maximal Assistance-helper does MORE THAN HALF the effort. [place] lifts or holds trunk or limbs and provides more than half the effort. 1-Hpkgufnlu-jtipev does ALL the effort. Patient does none of the effort to complete the activity. Or, the assistance of 2 or more helpers is required for the patient to complete the activity. If activity was not attempted, code reason: 7-Patient Refused. 9-Not Applicable-not attempted and the patient did not perform the activity before the current illness, exacerbation or injury. 10-Not Attempted due to Environmental Limitations-(lack of equipment, weather restraints, etc.). 88-Not Attempted due to Medical Conditions or Safety Concerns. Roll Left to Right (QC): 4 Sit to Lying (QC): 5 Sit to Stand (QC): 4 Chair/Aar-mf-Jyhmk Xfer(QC): 4 Car Transfer (QC): 2 Gait Training Does the Patient Walk?: Yes Distance: 20'x3 Walk 10 feet (QC): 3 Walk 50 ft with 2 Turns(QC): 88 Walk 150 ft (QC): 88 Walking 10ft/uneven surface-QC: 88 Gait Persons Needed: 1 (and w/c f/u close behind) Gait Assistive Device: Walker Jose Wheelchair Training Does the Pt Use a Wheelchair?: Yes Wheel 50 ft with 2 turns (QC): 4 Wheel 150 ft (QC): 5 Type of Wheelchair: Manual Stair Training 1 Step (curb) (QC): 88 4 Steps (QC): 88 12 Steps (QC): 88 Balance Picking up an Object (QC): 88 ADL-Treatment Eating (QC): 6 Oral Hygiene (QC): 5 (s/u oral care.) Bathing Location: L Arm, R Arm, L Upper Leg, R Upper Leg, L Lower Leg (i ncluding foot), R Lower Leg (including foot), Chest, Abdomen, Buttocks, Perineal Area Shower/Bathe Self (QC): 4 (CGA during LB tasks, SBA all other tasks while on sc. ) Upper Body Dressing (QC): 3 (min A R UE) Lower Body Dressing (QC): 1 (TD due to need of 2 people: Pt completes L LE threading, OT completes RLE, sit to stand with min A/ CGA by PT while OT addresses hiking over hips. 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 Defib in place Cardiomyopathy HTN Plan: Monitor dysphagia Cardiology consultation IRF protocol 04/11/20: Monitor BP Appreciate Cardiology 04/12/20: Monitor closely Pain management 04/13/20: Gabapentin Oxycodone 04/14/20: Increase Gabapentin Oxycodone BM regimen to increase today may need supp 04/15/20: BM++ Monitor pain of right side 04/16/20: Increase dose of Neurontin Maintain aggressive rehab 04/17/20: BM regimen to include supp Q48 hrs Monitor pain Monitor BP 04/18/20: Increased Gabpentin some more today BM regimen 04/19/20: Manage incontinence Right arm and right leg pain management 04/20/20: Maintain pain control Incontinence management BM regimen 04/21/20: Suppository [id number] Monitor closely Pain control 04/22/20: Continue BM regimen Monitor right sided pain 04/23/20: BM regimen PT OT Incontinence care 04/24/20: Monitor BP Fall risk BM regimen 04/25/20: No med changes Pain controlled 04/26/2020: Pain management Bowel regimen with suppository every 48 hours Continue intensive therapy 04/27/2020: Aggressive therapy Incontinence care Pain control 04/28/20: Monitor closely Periarea powder Monitor pain Check labs in am 04/29/20: Labs reviewed Monitor pain issues 04/30/20: Continue therapy Needs dispo 05/01/20: DC to NH at DC Monitor closely Pain continues and difficult to ascertain due to expressive aphasia 05/02/20: Pain control Incontinence care Needs NH placement 05/04/20: Monitor BM Needs NH (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
[2020-05-04 08:20] VITALS: BP 103/65
[2020-05-04] MEDS: ASPIRIN 81 MG CHEW (CHILDREN'S ASA) PO SCH (08:22)
[2020-05-04] MEDS: APIXABAN 5 MG (ELIQUIS) TABLET PO SCH ×2 (08:23→21:14)
[2020-05-04] MEDS: GABAPENTIN 400 MG (NEURONTIN) CAP PO SCH ×2 (08:23→21:14)
[2020-05-04] MEDS: SPIRONOLACTONE 25 MG (ALDACTONE) TAB PO SCH (08:23)
[2020-05-04] MEDS: BISOPROLOL 5 MG TAB (ZEBETA) PO SCH (08:23)
[2020-05-04] MEDS: SENNA W/DOCUSATE (SENOKOT S) TABLET PO SCH ×2 (09:00→21:15)
[2020-05-04] MEDS: DOCUSATE SODIUM 100 MG (COLACE) CAP PO SCH ×2 (09:00→21:14)
[2020-05-04] MEDS: DICLOFENAC 1% GEL 100 GM (VOLTAREN) TUBE TOP SCH ×4 (09:00→21:14)
[2020-05-04] MEDS: MICONAZOLE 2% POWDER (DESENEX AF) 90 GM TOP SCH ×2 (09:00→21:15)
[2020-05-04] MEDS: polyethylene glycoL POWDER 17 GM (MIRALAX) PACK PO SCH ×2 (09:00→19:33)
--- NOTE | 2020-05-04 10:18 | Physical Therapy Daily Note ---
PT Daily Note-Current Subjective Pt in bed upon arrival; agrees to PT tx. Mental Status Patient Orientation: Non-Verbal/Aphasic Attachments: Knee Immobilizer, Other-See Comments (RUE sling) Transfers SCALE: Activities may be completed with or without assistive devices. 6-Tsdkjrragg-jcemtaq completes the activity by him/herself with no assistance from a helper. 5-Set-up or Clean-up Assistance-helper sets up or cleans up; patient completes activity. [place] assists only prior to or following the activity. 4-Supervision or Touching Assistance-helper provides verbal cues and/or touching/steadying and/or contact guard assistance as patient completes activity. Assistance may be provided throughout the activity or intermittently. 3-Partial/Moderate Assistance-helper does LESS THAN HALF the effort. [place] lifts, holds or supports trunk or limbs, but provides less than half the effort. 2-Substantial/Maximal Assistance-helper does MORE THAN HALF the effort. [place] lifts or holds trunk or limbs and provides more than half the effort. 6-Hbitqlqvq-cmupwb does ALL the effort. Patient does none of the effort to complete the activity. Or, the assistance of 2 or more helpers is required for the patient to complete the activity. If activity was not attempted, code reason: 7-Patient Refused. 9-Not Applicable-not attempted and the patient did not perform the activity before the current illness, exacerbation or injury. 10-Not Attempted due to Environmental Limitations-(lack of equipment, weather restraints, etc.). 88-Not Attempted due to Medical Conditions or Safety Concerns. Lying to Sitting/Side of Bed(Q: 3 Sit to Stand (QC): 3 Chair/Wgw-uu-Qhxwg Xfer(QC): 3 Weight Bearing Full Weight Bearing Full Weight Bearing Gait Training Does the Patient Walk?: Yes Distance: 10' Walk 10 feet (QC): 1 Gait Persons Needed: 2 Gait Assistive Device: Walker Jose Pt ambulates w/ jose walker, REEL OPERATOR MaxA on R side and PASTEURIZER following behind w/ w/c. Treatments Worked on bed mobility, supine to sit at EOB and transfers. Ambulates in room 10' w/ hemiwalker and MaxA from REEL OPERATOR on R side and PASTEURIZER following w/ w/c. Pt sitting up in recliner w/ call light and bedside table w/in reach and all needs met at end of tx. Assessment Current Status: Fair Progress Pt struggles w/ transfers and ambulation w/ RLE knee immobilizer on. Pt requires VC's for proper hand placement during push off/return to sit. PT Short Term Goals Short Term Goals Time Frame: Apr 18, 2020 Roll Left & Right: 3 Sit to lyin Lying to sitting on side of be: 3 Sit to stand: 3 Chair/pwt-jp-bbjox transfer: 3 PT Tempering Machine Operator Goals Correction Goals PT Tempering Machine Operator Goals Time Frame: May 02, 2020 Roll Left & Right (QC): 3 (Zoya) Sit to Lying (QC): 3 (Zoya) Lying-Sitting on Side/Bed(QC): 3 (Zoya) Sit to Stand (QC): 3 (Zoya) Chair/Ety-sa-Lynop Xfer(QC): 3 (Zoya) Toilet Transfer (QC): 3 (Zoya) Car Transfer (QC): 3 (Zoya) Does the Patient Walk: No and Walking Goal NOT indicated Walk 10 feet (QC): 88 Walk 50ft with 2 Turns (QC): 88 Walk 150 ft (QC): 88 Walking 10ft on Uneven Surface: 88 1 Step (curb) (QC): 88 4 Steps (QC): 88 12 Steps (QC): 88 Picking up an Object (QC): 88 Wheel 50 feet with 2 turns (QC: 4 Wheel 150 feet: 4 PT Plan Problem List Problem List: Activity Tolerance, Functional Strength, Safety, Balance, Gait, Transfer, Bed Mobility Treatment/Plan Treatment Plan: Continue Plan of Care Treatment Plan: Bed Mobility, Education, Functional Activity [place], Functional Strength, Group Therapy, Gait, Safety, Therapeutic Exercise, Transfers Treatment Duration: May 01, 2020 Frequency: At least 5 of 7 days/Wk (IRF) Estimated Hrs Per Day: 1.5 hours per day Patient and/or Family Agrees t: Yes Safety Risks/Education Patient Education: Gait Training, Transfer Techniques, Correct Positioning, Safety Issues Teaching Recipient: Patient Teaching Methods: Discussion Response to Teaching: Reinforcement Needed Time/GCodes Time In: 08 Time Out: 905 Total Billed Treatment Time: 27 Total Billed Treatment 1, FA x1 ( 19m), GT x1 (8m) FRANKI DOWNING REEL OPERATOR May 04, 2020 10:18
[2020-05-04 17:19] VITALS: BP 111/72
[2020-05-04] MEDS: ACETAMINOPHEN 325 MG TABLET PO PRN (23:53)
[2020-05-05 06:56] VITALS: BP 129/65
[2020-05-05] MEDS: DICLOFENAC 1% GEL 100 GM (VOLTAREN) TUBE TOP SCH ×4 (09:04→20:21)
[2020-05-05] MEDS: BISOPROLOL 5 MG TAB (ZEBETA) PO SCH (09:04)
[2020-05-05] MEDS: SENNA W/DOCUSATE (SENOKOT S) TABLET PO SCH ×2 (09:04→20:21)
[2020-05-05] MEDS: ASPIRIN 81 MG CHEW (CHILDREN'S ASA) PO SCH (09:04)
[2020-05-05] MEDS: SPIRONOLACTONE 25 MG (ALDACTONE) TAB PO SCH (09:04)
[2020-05-05] MEDS: APIXABAN 5 MG (ELIQUIS) TABLET PO SCH ×2 (09:04→20:21)
[2020-05-05] MEDS: MICONAZOLE 2% POWDER (DESENEX AF) 90 GM TOP SCH ×2 (09:04→20:21)
[2020-05-05] MEDS: GABAPENTIN 400 MG (NEURONTIN) CAP PO SCH ×2 (09:04→20:21)
[2020-05-05] MEDS: DOCUSATE SODIUM 100 MG (COLACE) CAP PO SCH ×2 (09:53→20:21)
[2020-05-05] MEDS: polyethylene glycoL POWDER 17 GM (MIRALAX) PACK PO SCH ×2 (09:53→19:46)
--- NOTE | 2020-05-05 11:56 | PM&R Progress Note ---
Subjective HPI/CC On Admission Date Seen by Provider: May 05, 2020 Time Seen by Provider: 12:15 Subjective/Events-last exam 05/05/20: No changes Right sided pain still present Awaiting placement in NH 05/04/20: No major issues BM yesterday no supp used 05/02/20: No major changes More alert today In chair today No BM for several days and refuses suppository 05/01/20: No major changes Refuses suppository Pain on the right side continues Incontinent Sister did family training and felt like he will need to go to a nursing facility [facility] was sent a referral 04/30/20: No major changes Laxatives were refused and he is having a BM every other day without the suppository Denies any significant new issues 04/29/20: Patient reports no major issues No pain reported Pain meds are helpful 04/28/20: Periarea red so will start antifungal powder No pain reported otherwise Incontinence will require 14/12 nursing care along with severe deficit 04/27/2020: Incontinence of both bowel and bladder are limitations Denies any significant new issues Pain is pretty well controlled on the right side for flaccidity muscle spasms 04/26/2020: Patient denies any pain Incontinence requires nursing care 14/12 Pain is pretty well controlled Expressive aphasia makes it difficult to communicate 04/25/20: No major issues Pain controlled Participation with PT 04/24/20: Pt doing pretty well Bowels move after suppository every 48 hrs Decreasing pain medication Decreasing Cozaar due to hypotension per cardiology 04/23/20: BM after suppository every 48hrs Gabapentin BID seems to be working pretty well Using Oxycodone when Gabapentin is not enough No falls 04/22/20: No major issues Expressive aphasia continues Bowels moved yesterday after suppository given every 48 hours 04/21/20: Suppository today and BM Incontinent of B/B Pain improved Does not need to increase Gabapentin 04/20/20: BM yesterday Pain improved Sleepy today Doing better Incontinence : Improve right sided nerve pain Xanax and pain pill helps him BM after suppository Q 48 hours Incontinent of B/B 04/18/20: BM 04/17/20 Eliquis causes blurry vision per sister so will inquire with Dr Gibson regarding Xarelto Incontinent 04/17/20: Bowels not moving so will initiate Dulcolax suppository every 48hrs after laxatives given and he is agreeable for that plan Denies any significant new issues Pain is getting much better with the Gabapentin twice daily and Oxycodone 04/16/20: Right-sided pain still so increased Gabapentin to 300 Mg BID Xanax will help too Oxycodone also helps 04/15/20: Gabapentin maintained Oxycodone maintained Confusion noted? 04/14/20: Monitoring BP Pain right side still present and will increase Gabapentin 04/13/20: Right arm and right leg pain and issue Oxycodone not really helping Nerve pain so will give Gabapentin 04/12/20: Severe pain on right side Oxycodone ordered Participating in therapies well No other pain Pt doing pretty well Expressive aphasia is an issue WBC is 12.4 CMP normal Consulting cardiology Overall doing very well Conferred with RN Checked meds and labs Reviewed therapy notes Review of Systems Musculoskeletal: arm pain, leg pain Neurological: Weakness, Incoordination Objective Exam Vital Signs Vital Signs Date Time Temp Pulse Resp B/P (MAP) Pulse Ox O2 Delivery O2 Flow Rate FiO2 05/05/20 20:15 Room Air 05/05/20 17:08 36.3 81 16 100/62 (75) 93 Capillary Refill : Less Than 3 Seconds General Appearance: No Apparent Distress, WD/WN, Chronically ill HEENT: PERRL/EOMI, Normal ENT Inspection, Pharynx Normal Neck: Full Range of Motion, Normal Inspection, Non Tender, Supple, Carotid Bruit Respiratory: Chest Non Tender, Lungs Clear, Normal Breath Sounds, No Accessory Muscle Use, No Respiratory Distress Cardiovascular: Regular Rate, Rhythm, No Edema, No Gallop, No JVD, No Murmur, Normal Peripheral Pulses Gastrointestinal: Normal Bowel Sounds, No Organomegaly, No Pulsatile Mass, Non Tender, Soft Back: Normal Inspection, No CVA Tenderness, No Vertebral Tenderness Extremity: Normal Capillary Refill, Normal Inspection, Normal Range of Motion, Non Tender, No Calf Tenderness, No Pedal Edema Neurologic/Psychiatric: Alert, Normal Mood/Affect, Abnormal Gait, Aphasia, Depressed Affect, Disoriented, Motor Weakness (right sided flaccidity) Skin: Normal Color, Warm/Dry Lymphatic: No Adenopathy Results/Procedures Lab Patient resulted labs reviewed. FIM Transfers Therapy Code Descriptions/Definitions Functional [place] Measure: 0=Not Assessed/NA 4=Minimal Assistance 1=Total Assistance 5=Supervision or Setup 2=Maximal Assistance 6=Modified [place] 3=Moderate Assistance 7=Complete IndependenceSCALE: Activities may be completed with or without assistive devices. 1-Sfwvcyttip-niyjgzi completes the activity by him/herself with no assistance from a helper. 5-Set-up or Clean-up Assistance-helper sets up or cleans up; patient completes activity. [place] assists only prior to or following the activity. 4-Supervision or Touching Assistance-helper provides verbal cues and/or touching/steadying and/or contact guard assistance as patient completes activity. Assistance may be provided throughout the activity or intermittently. 3-Partial/Moderate Assistance-helper does LESS THAN HALF the effort. [place] lifts, holds or supports trunk or limbs, but provides less than half the effort. 2-Substantial/Maximal Assistance-helper does MORE THAN HALF the effort. [place] lifts or holds trunk or limbs and provides more than half the effort. 3-Axootqncr-csumie does ALL the effort. Patient does none of the effort to complete the activity. Or, the assistance of 2 or more helpers is required for the patient to complete the activity. If activity was not attempted, code reason: 7-Patient Refused. 9-Not Applicable-not attempted and the patient did not perform the activity before the current illness, exacerbation or injury. 10-Not Attempted due to Environmental Limitations-(lack of equipment, weather restraints, etc.). 88-Not Attempted due to Medical Conditions or Safety Concerns. Roll Left to Right (QC): 4 Sit to Lying (QC): 5 Sit to Stand (QC): 3 Chair/Dev-bi-Ntmbo Xfer(QC): 3 Car Transfer (QC): 2 Gait Training Does the Patient Walk?: Yes Distance: 10' Walk 10 feet (QC): 1 Walk 50 ft with 2 Turns(QC): 88 Walk 150 ft (QC): 88 Walking 10ft/uneven surface-QC: 88 Gait Persons Needed: 2 Gait Assistive Device: Walker Jose Wheelchair Training Does the Pt Use a Wheelchair?: Yes Wheel 50 ft with 2 turns (QC): 4 Wheel 150 ft (QC): 5 Type of Wheelchair: Manual Stair Training 1 Step (curb) (QC): 88 4 Steps (QC): 88 12 Steps (QC): 88 Balance Picking up an Object (QC): 88 ADL-Treatment Eating (QC): 6 Oral Hygiene (QC): 5 (s/u oral care.) Bathing Location: L Arm, R Arm, L Upper Leg, R Upper Leg, L Lower Leg (including foot), R Lower Leg (including foot), Chest, Abdomen, Buttocks, Perineal Area Shower/Bathe Self (QC): 4 (CGA during LB tasks, SBA all other tasks while on sc. ) Upper Body Dressing (QC): 3 (min A R UE) Lower Body Dressing (QC): 1 (TD due to need of 2 people: Pt completes L LE threading, OT completes RLE, sit to stand with min A/ CGA by PT while OT addresses hiking over hips. 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 Defib in place Cardiomyopathy HTN Plan: Monitor dysphagia Cardiology consultation IRF protocol 04/11/20: Monitor BP Appreciate Cardiology 04/12/20: Monitor closely Pain management 04/13/20: Gabapentin Oxycodone 04/14/20: Increase Gabapentin Oxycodone BM regimen to increase today may need supp 04/15/20: BM++ Monitor pain of right side 04/16/20: Increase dose of Neurontin Maintain aggressive rehab 04/17/20: BM regimen to include supp Q48 hrs Monitor pain Monitor BP 04/18/20: Increased Gabpentin some more today BM regimen 04/19/20: Manage incontinence Right arm and right leg pain management 04/20/20: Maintain pain control Incontinence management BM regimen 04/21/20: Suppository [id number] Monitor closely Pain control 04/22/20: Continue BM regimen Monitor right sided pain 04/23/20: BM regimen PT OT Incontinence care 04/24/20: Monitor BP Fall risk BM regimen 04/25/20: No med changes Pain controlled 04/26/2020: Pain management Bowel regimen with suppository every 48 hours Continue intensive therapy 04/27/2020: Aggressive therapy Incontinence care Pain control 04/28/20: Monitor closely Periarea powder Monitor pain Check labs in am 04/29/20: Labs reviewed Monitor pain issues 04/30/20: Continue therapy Needs dispo 05/01/20: DC to NH at DC Monitor closely Pain continues and difficult to ascertain due to expressive aphasia 05/02/20: Pain control Incontinence care Needs NH placement 05/04/20: Monitor BM Needs NH 05/05/20: Incontinence care (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
[2020-05-05 17:08] VITALS: BP 100/62
[2020-05-06] MEDS: ACETAMINOPHEN 325 MG TABLET PO PRN (05:30)
[2020-05-06 05:32] LABS: BASOPHILS % (AUTO) 0 % (0-10); EOSINOPHILS # (AUTO) 0.2 10^3/uL (0.0-0.3); EOSINOPHILS % (AUTO) 3 % (0-10); HEMATOCRIT 46 % (40-54); HEMOGLOBIN 14.6 g/dL (13.3-17.7); LYMPHOCYTES % (AUTO) 29 % (12-44); MEAN CORPUSCULAR HEMOGLOBIN 29 pg (25-34); MEAN CORPUSCULAR HGB CONC 32 g/dL (32-36); MEAN CORPUSCULAR VOLUME 91 fL (80-99); MONOCYTES # (AUTO) 0.9 10^3/uL (0.0-1.0); MONOCYTES % (AUTO) 12 % (0-12); NEUTROPHILS # (AUTO) 3.9 10^3/uL (1.8-7.8); NEUTROPHILS % (AUTO) 55 % (42-75); PLATELET COUNT 151 10^3/uL (130-400)
[2020-05-06 05:45] LABS: ALBUMIN 3.3 GM/DL (3.2-4.5)
[2020-05-06 05:46] LABS: CHLORIDE 105 MMOL/L (98-107); POTASSIUM 4.9 MMOL/L (3.6-5.0); SODIUM 141 MMOL/L (135-145)
[2020-05-06 05:47] LABS: CALCIUM 8.9 MG/DL (8.5-10.1)
[2020-05-06 05:48] LABS: GLUCOSE 89 MG/DL (70-105); TOTAL PROTEIN 6.1 GM/DL (6.4-8.2)
[2020-05-06 05:49] LABS: CARBON DIOXIDE 28 MMOL/L (21-32)
[2020-05-06 05:50] LABS: BILIRUBIN,TOTAL 0.4 MG/DL (0.1-1.0)
[2020-05-06 05:51] LABS: ALKALINE PHOSPHATASE 108 U/L (40-136)
[2020-05-06 05:52] LABS: CREATININE SERUM 1.14 MG/DL (0.60-1.30); GFR ESTIMATED > 60
[2020-05-06 05:53] LABS: BUN/CREATININE RATIO 15
[2020-05-06 05:54] LABS: ALANINE AMINOTRANSFERASE 75 U/L (0-55)
[2020-05-06 06:11] VITALS: BP 97/59
--- NOTE | 2020-05-06 09:02 | PM&R Progress Note ---
Subjective HPI/CC On Admission Date Seen by Provider: May 06, 2020 Time Seen by Provider: 09:00 Subjective/Events-last exam 05/06/20: Pt doing pretty well [facility] Labs remain stable Overall doing well 05/05/20: No changes Right sided pain still present Awaiting placement in NH 05/04/20: No major issues BM yesterday no supp used 05/02/20: No major changes More alert today In chair today No BM for several days and refuses suppository 05/01/20: No major changes Refuses suppository Pain on the right side continues Incontinent Sister did family training and felt like he will need to go to a nursing facility [facility] was sent a referral 04/30/20: No major changes Laxatives were refused and he is having a BM every other day without the suppository Denies any significant new issues 04/29/20: Patient reports no major issues No pain reported Pain meds are helpful 04/28/20: Periarea red so will start antifungal powder No pain reported otherwise Incontinence will require 14/12 nursing care along with severe deficit 04/27/2020: Incontinence of both bowel and bladder are limitations Denies any significant new issues Pain is pretty well controlled on the right side for flaccidity muscle spasms 04/26/2020: Patient denies any pain Incontinence requires nursing care 14/12 Pain is pretty well controlled Expressive aphasia makes it difficult to communicate 04/25/20: No major issues Pain controlled Participation with PT 04/24/20: Pt doing pretty well Bowels move after suppository every 48 hrs Decreasing pain medication Decreasing Cozaar due to hypotension per cardiology 04/23/20: BM after suppository every 48hrs Gabapentin BID seems to be working pretty well Using Oxycodone when Gabapentin is not enough No falls 04/22/20: No major issues Expressive aphasia continues Bowels moved yesterday after suppository given every 48 hours 04/21/20: Suppository today and BM Incontinent of B/B Pain improved Does not need to increase Gabapentin 04/20/20: BM yesterday Pain improved Sleepy today Doing better Incontinence : Improve right sided nerve pain Xanax and pain pill helps him BM after suppository Q 48 hours Incontinent of B/B 04/18/20: BM 04/17/20 Eliquis causes blurry vision per sister so will inquire with Dr Gibson regarding Xarelto Incontinent 04/17/20: Bowels not moving so will initiate Dulcolax suppository every 48hrs after laxatives given and he is agreeable for that plan Denies any significant new issues Pain is getting much better with the Gabapentin twice daily and Oxycodone 04/16/20: Right-sided pain still so increased Gabapentin to 300 Mg BID Xanax will help too Oxycodone also helps 04/15/20: Gabapentin maintained Oxycodone maintained Confusion noted? 04/14/20: Monitoring BP Pain right side still present and will increase Gabapentin 04/13/20: Right arm and right leg pain and issue Oxycodone not really helping Nerve pain so will give Gabapentin 04/12/20: Severe pain on right side Oxycodone ordered Participating in therapies well No other pain Pt doing pretty well Expressive aphasia is an issue WBC is 12.4 CMP normal Consulting cardiology Overall doing very well Conferred with RN Checked meds and labs Reviewed therapy notes Review of Systems Neurological: Weakness, Incoordination Objective Exam Vital Signs Vital Signs Date Time Temp Pulse Resp B/P (MAP) Pulse Ox O2 Delivery O2 Flow Rate FiO2 05/06/20 20:00 98 Room Air 05/06/20 18:36 37.0 80 16 102/60 (74) Capillary Refill : Less Than 3 Seconds General Appearance: No Apparent Distress, WD/WN, Chronically ill HEENT: PERRL/EOMI, Normal ENT Inspection, Pharynx Normal Neck: Full Range of Motion, Normal Inspection, Non Tender, Supple, Carotid Bruit Respiratory: Chest Non Tender, Lungs Clear, Normal Breath Sounds, No Accessory Muscle Use, No Respiratory Distress Cardiovascular: Regular Rate, Rhythm, No Edema, No Gallop, No JVD, No Murmur, Normal Peripheral Pulses Gastrointestinal: Normal Bowel Sounds, No Organomegaly, No Pulsatile Mass, Non Tender, Soft Back: Normal Inspection, No CVA Tenderness, No Vertebral Tenderness Extremity: Normal Capillary Refill, Normal Inspection, Normal Range of Motion, Non Tender, No Calf Tenderness, No Pedal Edema Neurologic/Psychiatric: Alert, Normal Mood/Affect, Abnormal Gait, Aphasia, Depressed Affect, Disoriented, Motor Weakness (right sided flaccidity) Skin: Normal Color, Warm/Dry Lymphatic: No Adenopathy Results/Procedures Lab Laboratory Tests 05/06/20 05:22 Patient resulted labs reviewed. FIM Transfers Therapy Code Descriptions/Definitions Functional [place] Measure: 0=Not Assessed/NA 4=Minimal Assistance 1=Total Assistance 5=Supervision or Setup 2=Maximal Assistance 6=Modified [place] 3=Moderate Assistance 7=Complete IndependenceSCALE: Activities may be completed with or without assistive devices. 5-Sjwcemjnmx-aizzomb completes the activity by him/herself with no assistance from a helper. 5-Set-up or Clean-up Assistance-helper sets up or cleans up; patient completes activity. [place] assists only prior to or following the activity. 4-Supervision or Touching Assistance-helper provides verbal cues and/or touching/steadying and/or contact guard assistance as patient completes activity. Assistance may be provided throughout the activity or intermittently. 3-Partial/Moderate Assistance-helper does LESS THAN HALF the effort. [place] lifts, holds or supports trunk or limbs, but provides less than half the effort. 2-Substantial/Maximal Assistance-helper does MORE THAN HALF the effort. [place] lifts or holds trunk or limbs and provides more than half the effort. 4-Braajsxfq-pgisup does ALL the effort. Patient does none of the effort to complete the activity. Or, the assistance of 2 or more helpers is required for the patient to complete the activity. If activity was not attempted, code reason: 7-Patient Refused. 9-Not Applicable-not attempted and the patient did not perform the activity before the current illness, exacerbation or injury. 10-Not Attempted due to Environmental Limitations-(lack of equipment, weather restraints, etc.). 88-Not Attempted due to Medical Conditions or Safety Concerns. Roll Left to Right (QC): 4 Sit to Lying (QC): 5 Sit to Stand (QC): 3 Chair/Mhv-ey-Lzvyu Xfer(QC): 3 Car Transfer (QC): 2 Gait Training Does the Patient Walk?: Yes Distance: 10' Walk 10 feet (QC): 1 Walk 50 ft with 2 Turns(QC): 88 Walk 150 ft (QC): 88 Walking 10ft/uneven surface-QC: 88 Gait Persons Needed: 2 Gait Assistive Device: Walker Jose Wheelchair Training Does the Pt Use a Wheelchair?: Yes Wheel 50 ft with 2 turns (QC): 4 Wheel 150 ft (QC): 5 Type of Wheelchair: Manual Stair Training 1 Step (curb) (QC): 88 4 Steps (QC): 88 12 Steps (QC): 88 Balance Picking up an Object (QC): 88 ADL-Treatment Eating (QC): 6 Oral Hygiene (QC): 5 (s/u oral care.) Bathing Location: L Arm, R Arm, L Upper Leg, R Upper Leg, L Lower Leg (including foot), R Lower Leg (including foot), Chest, Abdomen, Buttocks, Perineal Area Shower/Bathe Self (QC): 4 (CGA during LB tasks, SBA all other tasks while on sc . ) Upper Body Dressing (QC): 3 (min A R UE) Lower Body Dressing (QC): 1 (TD due to need of 2 people: Pt completes L LE threading, OT completes RLE, sit to stand with min A/ CGA by PT while OT addresses hiking over hips. 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 Defib in place Cardiomyopathy HTN Plan: Monitor dysphagia Cardiology consultation IRF protocol 04/11/20: Monitor BP Appreciate Cardiology 04/12/20: Monitor closely Pain management 04/13/20: Gabapentin Oxycodone 04/14/20: Increase Gabapentin Oxycodone BM regimen to increase today may need supp 04/15/20: BM++ Monitor pain of right side 04/16/20: Increase dose of Neurontin Maintain aggressive rehab 04/17/20: BM regimen to include supp Q48 hrs Monitor pain Monitor BP 04/18/20: Increased Gabpentin some more today BM regimen 04/19/20: Manage incontinence Right arm and right leg pain management 04/20/20: Maintain pain control Incontinence management BM regimen 04/21/20: Suppository [id number] Monitor closely Pain control 04/22/20: Continue BM regimen Monitor right sided pain 04/23/20: BM regimen PT OT Incontinence care 04/24/20: Monitor BP Fall risk BM regimen 04/25/20: No med changes Pain controlled 04/26/2020: Pain management Bowel regimen with suppository every 48 hours Continue intensive therapy 04/27/2020: Aggressive therapy Incontinence care Pain control 04/28/20: Monitor closely Periarea powder Monitor pain Check labs in am 04/29/20: Labs reviewed Monitor pain issues 04/30/20: Continue therapy Needs dispo 05/01/20: DC to NH at DC Monitor closely Pain continues and difficult to ascertain due to expressive aphasia 05/02/20: Pain control Incontinence care Needs NH placement 05/04/20: Monitor BM Needs NH 05/05/20: Incontinence care 05/06/20: Await NHP Labs normal (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
[2020-05-06 09:41] VITALS: BP 95/61
[2020-05-06] MEDS: polyethylene glycoL POWDER 17 GM (MIRALAX) PACK PO SCH ×2 (09:42→21:30)
[2020-05-06] MEDS: SENNA W/DOCUSATE (SENOKOT S) TABLET PO SCH ×2 (09:42→21:30)
[2020-05-06] MEDS: BISOPROLOL 5 MG TAB (ZEBETA) PO SCH (09:43)
[2020-05-06] MEDS: ASPIRIN 81 MG CHEW (CHILDREN'S ASA) PO SCH (09:43)
[2020-05-06] MEDS: DOCUSATE SODIUM 100 MG (COLACE) CAP PO SCH ×2 (09:43→21:31)
[2020-05-06] MEDS: SPIRONOLACTONE 25 MG (ALDACTONE) TAB PO SCH (09:43)
[2020-05-06] MEDS: APIXABAN 5 MG (ELIQUIS) TABLET PO SCH ×2 (09:43→21:30)
[2020-05-06] MEDS: GABAPENTIN 400 MG (NEURONTIN) CAP PO SCH ×2 (09:43→21:30)
[2020-05-06] MEDS: MICONAZOLE 2% POWDER (DESENEX AF) 90 GM TOP SCH ×2 (09:44→21:33)
[2020-05-06] MEDS: DICLOFENAC 1% GEL 100 GM (VOLTAREN) TUBE TOP SCH ×4 (09:44→21:32)
--- NOTE | 2020-05-06 09:56 | Physical Therapy Daily Note ---
PT Daily Note-Current Subjective Patient in bed pre tx, agrees to PT, has unrated pain in right side, will be co- treating with OT due to poor patient mobility, strength, endurance, right hemiparesis, poor standing balance, the need to coordinate UE and LE during activity. Appearance Patient in recliner post tx with nurse call, phone, tray, all needs met. Mental Status Patient Orientation: Person, Unable to Assess, Non-Verbal/Aphasic Transfers SCALE: Activities may be completed with or without assistive devices. 5-Xgaofxwvvb-pocqqog completes the activity by him/herself with no assistance from a helper. 5-Set-up or Clean-up Assistance-helper sets up or cleans up; patient completes activity. [place] assists only prior to or following the activity. 4-Supervision or Touching Assistance-helper provides verbal cues and/or touching/steadying and/or contact guard assistance as patient completes activity. Assistance may be provided throughout the activity or intermittently. 3-Partial/Moderate Assistance-helper does LESS THAN HALF the effort. [place] lifts, holds or supports trunk or limbs, but provides less than half the effort. 2-Substantial/Maximal Assistance-helper does MORE THAN HALF the effort. [place] lifts or holds trunk or limbs and provides more than half the effort. 5-Jomjqwips-zbxvpr does ALL the effort. Patient does none of the effort to complete the activity. Or, the assistance of 2 or more helpers is required for the patient to complete the activity. If activity was not attempted, code reason: 7-Patient Refused. 9-Not Applicable-not attempted and the patient did not perform the activity before the current illness, exacerbation or injury. 10-Not Attempted due to Environmental Limitations-(lack of equipment, weather restraints, etc.). 88-Not Attempted due to Medical Conditions or Safety Concerns. Roll Left & Right (QC): 3 Sit to Lying (QC): 3 Lying to Sitting/Side of Bed(Q: 3 Sit to Stand (QC): 3 Chair/Gox-vx-Zxcbm Xfer(QC): 3 Toilet Transfer (QC): 3 Car Transfer (QC): 3 Supine to sit and stand pivot to shower chair, taken to shower room, showered, dressed and dried off, WC to therapy gym Weight Bearing Full Weight Bearing Full Weight Bearing Gait Training Distance: 20'x3 Walk 10 feet (QC): 3 Walk 50 ft with 2 Turns(QC): 88 Walk 150 ft (QC): 88 Walking 10ft/uneven surface-QC: 88 Gait Persons Needed: 1 Gait Assistive Device: Walker Jose Patient ambulated 20'x3 with a hemiwalker with mod assist. He wears a right knee immobilizer and needs assist with weight shifting and advancing his right leg. Wheelchair Training Does the Pt Use a Wheelchair?: Yes Wheel 50 ft with 2 turns (QC): 4 Wheel 150 ft (QC): 4 Type of Wheelchair: Manual Stair Training 1 Step (curb) (QC): 88 4 Steps (QC): 88 12 Steps (QC): 88 Balance Picking up an Object (QC): 88 Treatments PT worked on bed mobility, transfers, balance and positioning during bathing and dressing, ambulation, OT worked on bathing, dressing, UE postioning and safety during activity, assist with ambulation. Assessment Current Status: Poor Progress slightly improved stand pivot transfers but not much improvement in functional mobility overall. PT Short Term Goals Short Term Goals Time Frame: Apr 18, 2020 Roll Left & Right: 3 Sit to lyin Lying to sitting on side of be: 3 Sit to stand: 3 Chair/mvk-nv-fhuvw transfer: 3 PT Vp Genetic Goals Vp Genetic Goals PT Vp Genetic Goals Time Frame: May 02, 2020 Roll Left & Right (QC): 3 (Zoya) Sit to Lying (QC): 3 (Zoya) Lying-Sitting on Side/Bed(QC): 3 (Zoya) Sit to Stand (QC): 3 (Zoya) Chair/Frp-rg-Rjeoe Xfer(QC): 3 (Zoya) Toilet Transfer (QC): 3 (Zoya) Car Transfer (QC): 3 (oZya) Does the Patient Walk: No and Walking Goal NOT indicated Walk 10 feet (QC): 88 Walk 50ft with 2 Turns (QC): 88 Walk 150 ft (QC): 88 Walking 10ft on Uneven Surface: 88 1 Step (curb) (QC): 88 4 Steps (QC): 88 12 Steps (QC): 88 Picking up an Object (QC): 88 Wheel 50 feet with 2 turns (QC: 4 Wheel 150 feet: 4 PT Plan Problem List Problem List: Activity Tolerance, Functional Strength, Safety, Balance, Gait, Transfer, Bed Mobility, ROM Treatment/Plan Treatment Plan: Continue Plan of Care Treatment Plan: Bed Mobility, Education, Functional Activity [place], Functional Strength, Group Therapy, Gait, Safety, Therapeutic Exercise, Transfers Treatment Duration: May 01, 2020 Frequency: At least 5 of 7 days/Wk (IRF) Estimated Hrs Per Day: 1.5 hours per day Patient and/or Family Agrees t: Yes Safety Risks/Education Patient Education: Gait Training, Transfer Techniques, Correct Positioning, W/C Management, Safety Issues Teaching Recipient: Patient Teaching Methods: Demonstration, Discussion Response to Teaching: Reinforcement Needed Time/GCodes Time In: 0800 Time Out: 0900 Total Billed Treatment Time: 60 Total Billed Treatment 1 visit GT 15' FA 45' DARRYL BARTLETT PT May 06, 2020 09:56
--- NOTE | 2020-05-06 10:30 | Occupational Ther Daily Note ---
OT Current Status-Daily Note Subjective Co-treat: 7467-2672: Pt alert in bed this am. Pt agrees to OT/ PT co-treat with OT addressing ADLs, UE movement, UE placement, problem solving and PT addressing LE movement, fx transfers, w/c mobility, ambulation task, balance. 6572-6504: Pt in bed, agrees to tx. States no pain currently. [id number]: OT/ PT co-treat with OT addressing ADLs, UE movement, UE placement, problem solving and PT addressing LE movement, fx transfers, w/c mobility, ambulation task, balance. Pt in chair upon entry, agrees to tx. ADL-Treatment Therapy Code Descriptions/Definitions Functional [place] Measure: 0=Not Assessed/NA 4=Minimal Assistance 1=Total Assistance 5=Supervision or Setup 2=Maximal Assistance 6=Modified [place] 3=Moderate Assistance 7=Complete IndependenceSCALE: Activities may be completed with or without assistive devices. 4-Hginwwmsjc-kfikgcy completes the activity by him/herself with no assistance from a helper. 5-Set-up or Clean-up Assistance-helper sets up or cleans up; patient completes activity. [place] assists only prior to or following the activity. 4-Supervision or Touching Assistance-helper provides verbal cues and/or touching/steadying and/or contact guard assistance as patient completes activity. Assistance may be provided throughout the activity or intermittently. 3-Partial/Moderate Assistance-helper does LESS THAN HALF the effort. [place] lifts, holds or supports trunk or limbs, but provides less than half the effort. 2-Substantial/Maximal Assistance-helper does MORE THAN HALF the effort. [place] lifts or holds trunk or limbs and provides more than half the effort. 9-Snmvprbvx-ljbccm does ALL the effort. Patient does none of the effort to complete the activity. Or, the assistance of 2 or more helpers is required for the patient to complete the activity. If activity was not attempted, code reason: 7-Patient Refused. 9-Not Applicable-not attempted and the patient did not perform the activity before the current illness, exacerbation or injury. 10-Not Attempted due to Environmental Limitations-(lack of equipment, weather restraints, etc.). 88-Not Attempted due to Medical Conditions or Safety Concerns. Eating (QC): 6 Oral Hygiene (QC): 5 (completes with s/u) Bathing Location: L Arm, R Arm, L Upper Leg, R Upper Leg, L Lower Leg (including foot), R Lower Leg (including foot), Chest, Abdomen, Buttocks, Perineal Area Shower/Bathe Self (QC): 4 (SUP during tasks in sc.) Upper Body Dressing (QC): 3 (min A for support of R UE) Lower Body Dressing (QC): 2 (Max A- pt able to thread LLE, OT threads RUE, stands with CGA/ SUP from PT and OT pulls over hips. ) On/Off Footwear: 4 (CGA RUE during R shoe donning. ) Toileting Hygiene (QC): 4 (SUP during showering. ) Toilet Transfer (QC): 3 (min A from sit to stand at grab bars and w/c replaced with sc/ commode.) Other Treatment [id number] Pt completes bed mob with min A. SPT to w/c with min A. Pt propels self to shower room, sit to stand at gb with CGA. Pt's w/c replaced with sc. Pt completes showering with SUP and s/u for soap. Pt finishes, sit to stand CGA and sc replaced with dry w/c. Pt completes drying off with SUP and increased time. Dons shirt (min A) and pants/ briefs (max A pants, TD briefs). Pt completes shoe/ sock donning with min A (support of RLE). Pt propels to gym with SBA, one cue for scanning to R side. Pt sits EOM and sit to supine min A. R knee brace donned as OT addresses pectoral stretching/ manual mm tension release for relaxation/ contracture prevention. Pt supine to sit min A. Sit to stand and ambulates with britni cane with PT/ OT to follow and addresses RUE in sling and problem solving. Pt returns to w/c. Completes ambulation 1 more time, returns to room with directional cues. SPT to recliner and left in recliner with all needs met, LEs elevated, water brought to pt (thickened), call light in reach. 7426-3503: Pt asleep in bed, agrees to OT individual tx. Pt's RUE ranged to full range with manual mm tension release for relaxation and contracture prevention. Increase of hand closure (reaction) noted. Pt bed mob with SBA. SPT to recliner placed to L side of bed. Pt positioned for comfort/ success for feeding. All needs met, call light in reach, LEs elevated. 3621-2122: OT/ PT co-treat this session due to an increase of fx activities. Pt completes sit to stand and SPT to w/c with PT assist. Pt propels self to car transfer machine, completing with increased cues and PT assist while OT addresses RUE placement and problem solving. Pt returns from sit in car transfer machine to SPT to w/c with min A. Pt propels self through hallway in w/c with fair + ability and left with PT end of session. Education OT Patient Education: Correct positioning, Exercise program, Home exercise program, Modified ADL techniques, Progress toward Goal/Update tx plan, Purpose of tx/functional activities, Safety issues, Transfer techniques, W/C management Teaching Recipient: Patient Teaching Methods: Demonstration, Discussion Response to Teaching: Verbalize Understanding, Return Demonstration, Reinforcement Needed OT Short Term Goals Short Term Goals Eatin Oral hygiene: 5 Toileting hygiene: 2 Shower/bathe self: 2 Upper body dressin Lower body dressin Putting on/taking off footwear: 2 OT Data Processing Auditor Goals Care Home Goals Time Frame: Apr 24, 2020 Eating (QC): 6 Oral Hygiene (QC): 6 Toileting Hygiene (QC): 3 Shower/Bathe Self (QC): 3 Upper Body Dressing (QC): 6 Lower Body Dressing (QC): 3 On/Off Footwear (QC): 6 Additional Goals: 1-Demonstrate ADL Tasks, 2-Verbalize Understanding, 3- ImproveStrength/[place] 1=Demonstrate adherence to instructed precautions during ADL tasks. 2=Patient will verbalize/demonstrate understanding of assistive devices/modifications for ADL. 3=Patient will improve strength/tolerance for activity to enable patient to perform ADL's. OT Education/Plan Problem List/Assessment Assessment: Decreased Activ Tolerance, Decreased UE Strength, Dependent Transfers, Impaired Bed Mobility, Impaired Coordination, Impaired Funct Balance, Impaired I ADL's, Impaired Self-Care Skills, Restricted Funct UE ROM, Visual- Perceptual Deficit Discharge Recommendations Plan/Recommendations: Continue POC Therapy Discharge Recommendati: 24 Hour Supervision, Post Acute OT Treatment Plan/Plan of Care Treatment,Training & Education: Yes Patient would benefit from OT for education, treatment and training to promote independence in ADL's, mobility, safety and/or upper extremity function for ADL's. Plan of Care: ADL Retraining, Caregiver Training, Concurrent Therapy, Functional Mobility, Group Exercise/Act as Ind, Orthotic Fitting/Training, UE Funct Exercise/Act, UE Neuromus Re-Ed/Coord, Visual/Perceptual Retrain, W/C Management Training Treatment Duration: Apr 24, 2020 Frequency: At least 5 of 7 days/Wk (IRF) Estimated Hrs Per Day: 1.5 hours per day Agreement: Yes Rehab Potential: Fair Time/GCodes Start Time: 08:00 (1145; 1330) Stop Time: 09:00 (1200; 1345) Total Time Billed (hr/min): 90 (60+15+15= 90) Billed Treatment Time 5358-7683 OT/ PT co-treat with OT addressing ADLs, UE movement, UE placement, problem solving and PT addressing LE movement, fx transfers, w/c mobility, ambulation task, balance. 1, ADL 3 (45), EX (15)= 60 [id number]: 1, MAN (15) 4690-3937: 1, FA (15) Total: 90 FATIMAH KERNS OTR May 06, 2020 10:30
--- NOTE | 2020-05-06 13:58 | Physical Therapy Daily Note ---
PT Daily Note-Current Subjective Patient in recliner pre tx, agrees to PT, has no complaints of pain at rest. Will be co-treating with OT due to poor patient mobility, strength, endurance, right hemiparesis, poor standing balance, the need to coordinate UE and LE during activity. Appearance Patient in bed post tx with nurse call, phone, tray, all needs met. Mental Status Patient Orientation: Person, Unable to Assess, Non-Verbal/Aphasic Transfers SCALE: Activities may be completed with or without assistive devices. 1-Jszlvpyvbj-iitbgkv completes the activity by him/herself with no assistance from a helper. 5-Set-up or Clean-up Assistance-helper sets up or cleans up; patient completes activity. [place] assists only prior to or following the activity. 4-Supervision or Touching Assistance-helper provides verbal cues and/or touching/steadying and/or contact guard assistance as patient completes activity. Assistance may be provided throughout the activity or intermittently. 3-Partial/Moderate Assistance-helper does LESS THAN HALF the effort. [place] lifts, holds or supports trunk or limbs, but provides less than half the effort. 2-Substantial/Maximal Assistance-helper does MORE THAN HALF the effort. [place] lifts or holds trunk or limbs and provides more than half the effort. 2-Adqfxzuue-goxcvj does ALL the effort. Patient does none of the effort to complete the activity. Or, the assistance of 2 or more helpers is required for the patient to complete the activity. If activity was not attempted, code reason: 7-Patient Refused. 9-Not Applicable-not attempted and the patient did not perform the activity before the current illness, exacerbation or injury. 10-Not Attempted due to Environmental Limitations-(lack of equipment, weather restraints, etc.). 88-Not Attempted due to Medical Conditions or Safety Concerns. Roll Left & Right (QC): 3 Sit to Lying (QC): 3 Sit to Stand (QC): 3 Chair/Ymr-it-Urcmy Xfer(QC): 3 Car Transfer (QC): 3 sit to stand and then transfer to , practice car transfer, WC mobility, and then transfer back to bed, needs 2 assist to scoot up in bed. Weight Bearing Full Weight Bearing Full Weight Bearing Wheelchair Training Does the Pt Use a Wheelchair?: Yes Wheel 50 ft with 2 turns (QC): 4 Wheel 150 ft (QC): 4 Type of Wheelchair: Manual 300' Treatments PT performed bed mobility and transfers, WC mobility, OT performed UE positioning and safety, dressing Assessment Current Status: Fair Progress difficulty with transfer to practice car but still min assist PT Short Term Goals Short Term Goals Time Frame: Apr 18, 2020 Roll Left & Right: 3 Sit to lyin Lying to sitting on side of be: 3 Sit to stand: 3 Chair/lot-ut-sxfwv transfer: 3 PT Coin Machine Operator Goals Coin Machine Operator Goals PT [facility] Goals Time Frame: May 02, 2020 Roll Left & Right (QC): 3 (Zoya) Sit to Lying (QC): 3 (Zoya) Lying-Sitting on Side/Bed(QC): 3 (Zoya) Sit to Stand (QC): 3 (Zoya) Chair/Cce-ic-Qcpzm Xfer(QC): 3 (Zoya) Toilet Transfer (QC): 3 (Zoya) Car Transfer (QC): 3 (Zoya) Does the Patient Walk: No and Walking Goal NOT indicated Walk 10 feet (QC): 88 Walk 50ft with 2 Turns (QC): 88 Walk 150 ft (QC): 88 Walking 10ft on Uneven Surface: 88 1 Step (curb) (QC): 88 4 Steps (QC): 88 12 Steps (QC): 88 Picking up an Object (QC): 88 Wheel 50 feet with 2 turns (QC: 4 Wheel 150 feet: 4 PT Plan Problem List Problem List: Activity Tolerance, Functional Strength, Safety, Balance, Gait, Transfer, Bed Mobility, ROM Treatment/Plan Treatment Plan: Continue Plan of Care Treatment Plan: Bed Mobility, Education, Functional Activity [place], Functional Strength, Group Therapy, Gait, Safety, Therapeutic Exercise, Transfers Treatment Duration: May 01, 2020 Frequency: At least 5 of 7 days/Wk (IRF) Estimated Hrs Per Day: 1.5 hours per day Patient and/or Family Agrees t: Yes Safety Risks/Education Patient Education: Transfer Techniques, Correct Positioning, W/C Management, Safety Issues Teaching Recipient: Patient Teaching Methods: Demonstration, Discussion Response to Teaching: Reinforcement Needed Time/GCodes Time In: 1330 Time Out: 1400 Total Billed Treatment Time: 30 Total Billed Treatment 1 visit FA 30' co-treated with OT from [id number] DARRYL BARTLETT PT May 06, 2020 13:58
[2020-05-06 18:36] VITALS: BP 102/60
--- NOTE | 2020-05-07 06:01 | PM&R Progress Note ---
Subjective HPI/CC On Admission Date Seen by Provider: May 07, 2020 Time Seen by Provider: 08:30 Subjective/Events-last exam 05/07/20: Suppository given due to no BM for four days Urinating in the urinal now Butt-paste maintained for skin protection 05/06/20: Pt doing pretty well Awaiting intermediate placement Labs remain stable Overall doing well 05/05/20: No changes Right sided pain still present Awaiting placement in NH 05/04/20: No major issues BM yesterday no supp used 05/02/20: No major changes More alert today In chair today No BM for several days and refuses suppository 05/01/20: No major changes Refuses suppository Pain on the right side continues Incontinent Sister did family training and felt like he will need to go to a nursing facility [facility] was sent a referral 04/30/20: No major changes Laxatives were refused and he is having a BM every other day without the suppository Denies any significant new issues 04/29/20: Patient reports no major issues No pain reported Pain meds are helpful 04/28/20: Periarea red so will start antifungal powder No pain reported otherwise Incontinence will require 24 nursing care along with severe deficit 04/27/2020: Incontinence of both bowel and bladder are limitations Denies any significant new issues Pain is pretty well controlled on the right side for flaccidity muscle spasms 04/26/2020: Patient denies any pain Incontinence requires nursing care 14/12 Pain is pretty well controlled Expressive aphasia makes it difficult to communicate 04/25/20: No major issues Pain controlled Participation with PT 04/24/20: Pt doing pretty well Bowels move after suppository every 48 hrs Decreasing pain medication Decreasing Cozaar due to hypotension per cardiology 04/23/20: BM after suppository every 48hrs Gabapentin BID seems to be working pretty well Using Oxycodone when Gabapentin is not enough No falls 04/22/20: No major issues Expressive aphasia continues Bowels moved yesterday after suppository given every 48 hours 04/21/20: Suppository today and BM Incontinent of B/B Pain improved Does not need to increase Gabapentin 04/20/20: BM yesterday Pain improved Sleepy today Doing better Incontinence : Improve right sided nerve pain Xanax and pain pill helps him BM after suppository Q 48 hours Incontinent of B/B 04/18/20: BM 04/17/20 Eliquis causes blurry vision per sister so will inquire with Dr Gibson regarding Xarelto Incontinent 04/17/20: Bowels not moving so will initiate Dulcolax suppository every 48hrs after laxatives given and he is agreeable for that plan Denies any significant new issues Pain is getting much better with the Gabapentin twice daily and Oxycodone 04/16/20: Right-sided pain still so increased Gabapentin to 300 Mg BID Xanax will help too Oxycodone also helps 04/15/20: Gabapentin maintained Oxycodone maintained Confusion noted? 04/14/20: Monitoring BP Pain right side still present and will increase Gabapentin 04/13/20: Right arm and right leg pain and issue Oxycodone not really helping Nerve pain so will give Gabapentin 04/12/20: Severe pain on right side Oxycodone ordered Participating in therapies well No other pain Pt doing pretty well Expressive aphasia is an issue WBC is 12.4 CMP normal Consulting cardiology Overall doing very well Conferred with RN Checked meds and labs Reviewed therapy notes Review of Systems General: Malaise Gastrointestinal: Constipation Neurological: Weakness, Incoordination Objective Exam Vital Signs Vital Signs Date Time Temp Pulse Resp B/P (MAP) Pulse Ox O2 Delivery O2 Flow Rate FiO2 05/07/20 20:55 Room Air 05/07/20 18:00 36.6 80 18 98/59 (72) 97 Capillary Refill : Less Than 3 Seconds General Appearance: No Apparent Distress, WD/WN, Chronically ill HEENT: PERRL/EOMI, Normal ENT Inspection, Pharynx Normal Neck: Full Range of Motion, Normal Inspection, Non Tender, Supple, Carotid Bruit Respiratory: Chest Non Tender, Lungs Clear, Normal Breath Sounds, No Accessory Muscle Use, No Respiratory Distress Cardiovascular: Regular Rate, Rhythm, No Edema, No Gallop, No JVD, No Murmur, Normal Peripheral Pulses Gastrointestinal: Normal Bowel Sounds, No Organomegaly, No Pulsatile Mass, Non Tender, Soft Back: Normal Inspection, No CVA Tenderness, No Vertebral Tenderness Extremity: Normal Capillary Refill, Normal Inspection, Normal Range of Motion, Non Tender, No Calf Tenderness, No Pedal Edema Neurologic/Psychiatric: Alert, Normal Mood/Affect, Abnormal Gait, Aphasia, Depressed Affect, Disoriented, Motor Weakness (right sided flaccidity) Skin: Normal Color, Warm/Dry Lymphatic: No Adenopathy Results/Procedures Lab Patient resulted labs reviewed. FIM Transfers Therapy Code Descriptions/Definitions Functional [place] Measure: 0=Not Assessed/NA 4=Minimal Assistance 1=Total Assistance 5=Supervision or Setup 2=Maximal Assistance 6=Modified [place] 3=Moderate Assistance 7=Complete IndependenceSCALE: Activities may be completed with or without assistive devices. 0-Keubrqaoxd-jkjjjbz completes the activity by him/herself with no assistance from a helper. 5-Set-up or Clean-up Assistance-helper sets up or cleans up; patient completes activity. [place] assists only prior to or following the activity. 4-Supervision or Touching Assistance-helper provides verbal cues and/or touching/steadying and/or contact guard assistance as patient completes activity. Assistance may be provided throughout the activity or intermittently. 3-Partial/Moderate Assistance-helper does LESS THAN HALF the effort. [place] lifts, holds or supports trunk or limbs, but provides less than half the effort. 2-Substantial/Maximal Assistance-helper does MORE THAN HALF the effort. [place] lifts or holds trunk or limbs and provides more than half the effort. 6-Mtwwcmqyh-sotcqm does ALL the effort. Patient does none of the effort to complete the activity. Or, the assistance of 2 or more helpers is required for the patient to complete the activity. If activity was not attempted, code reason: 7-Patient Refused. 9-Not Applicable-not attempted and the patient did not perform the activity before the current illness, exacerbation or injury. 10-Not Attempted due to Environmental Limitations-(lack of equipment, weather restraints, etc.). 88-Not Attempted due to Medical Conditions or Safety Concerns. Roll Left to Right (QC): 3 Sit to Lying (QC): 3 Sit to Stand (QC): 3 Chair/Tmp-ax-Nwysz Xfer(QC): 3 Car Transfer (QC): 3 Gait Training Does the Patient Walk?: Yes Distance: 20'x3 Walk 10 feet (QC): 3 Walk 50 ft with 2 Turns(QC): 88 Walk 150 ft (QC): 88 Walking 10ft/uneven surface-QC: 88 Gait Persons Needed: 1 Gait Assistive Device: Walker Jose Wheelchair Training Does the Pt Use a Wheelchair?: Yes Wheel 50 ft with 2 turns (QC): 4 Wheel 150 ft (QC): 4 Type of Wheelchair: Manual Stair Training 1 Step (curb) (QC): 88 4 Steps (QC): 88 12 Steps (QC): 88 Balance Picking up an Object (QC): 88 ADL-Treatment Eating (QC): 6 Oral Hygiene (QC): 5 (completes with s/u) Bathing Location: L Arm, R Arm, L Upper Leg, R Upper Leg, L Lower Leg (including foot), R Lower Leg (including foot), Chest, Abdomen, Buttocks, Perineal Area Shower/Bathe Self (QC): 4 (SUP during tasks in sc.) Upper Body Dressing (QC): 3 (min A for support of R UE) Lower Body Dressing (QC): 2 (Max A- pt able to thread LLE, OT threads RUE, stands with CGA/ SUP from PT and OT pulls over hips. ) On/Off Footwear (QC): 4 (CGA RUE during R shoe donning. ) Toileting Hygiene (QC): 4 (SUP during showering. 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 Defib in place Cardiomyopathy HTN Plan: Monitor dysphagia Cardiology consultation IRF protocol 04/11/20: Monitor BP Appreciate Cardiology 04/12/20: Monitor closely Pain management 04/13/20: Gabapentin Oxycodone 04/14/20: Increase Gabapentin Oxycodone BM regimen to increase today may need supp 04/15/20: BM++ Monitor pain of right side 04/16/20: Increase dose of Neurontin Maintain aggressive rehab 04/17/20: BM regimen to include supp Q48 hrs Monitor pain Monitor BP 04/18/20: Increased Gabpentin some more today BM regimen 04/19/20: Manage incontinence Right arm and right leg pain management 04/20/20: Maintain pain control Incontinence management BM regimen 04/21/20: Suppository [id number] Monitor closely Pain control 04/22/20: Continue BM regimen Monitor right sided pain 04/23/20: BM regimen PT OT Incontinence care 04/24/20: Monitor BP Fall risk BM regimen 04/25/20: No med changes Pain controlled 04/26/2020: Pain management Bowel regimen with suppository every 48 hours Continue intensive therapy 04/27/2020: Aggressive therapy Incontinence care Pain control 04/28/20: Monitor closely Periarea powder Monitor pain Check labs in am 04/29/20: Labs reviewed Monitor pain issues 04/30/20: Continue therapy Needs dispo 05/01/20: DC to NH at DC Monitor closely Pain continues and difficult to ascertain due to expressive aphasia 05/02/20: Pain control Incontinence care Needs NH placement 05/04/20: Monitor BM Needs NH 05/05/20: Incontinence care 05/06/20: Await NHP Labs normal 05/07/20: DC to NH once accepted (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
[2020-05-07 06:15] VITALS: BP 97/64
[2020-05-07] MEDS: ASPIRIN 81 MG CHEW (CHILDREN'S ASA) PO SCH (07:43)
[2020-05-07] MEDS: BISOPROLOL 5 MG TAB (ZEBETA) PO SCH (07:43)
[2020-05-07] MEDS: APIXABAN 5 MG (ELIQUIS) TABLET PO SCH ×2 (07:43→20:51)
[2020-05-07] MEDS: GABAPENTIN 400 MG (NEURONTIN) CAP PO SCH ×2 (07:43→20:51)
[2020-05-07] MEDS: SENNA W/DOCUSATE (SENOKOT S) TABLET PO SCH ×2 (07:43→21:01)
[2020-05-07] MEDS: SPIRONOLACTONE 25 MG (ALDACTONE) TAB PO SCH (07:43)
[2020-05-07] MEDS: DICLOFENAC 1% GEL 100 GM (VOLTAREN) TUBE TOP SCH ×4 (07:44→20:53)
[2020-05-07] MEDS: DOCUSATE SODIUM 100 MG (COLACE) CAP PO SCH ×2 (07:44→21:01)
[2020-05-07] MEDS: MICONAZOLE 2% POWDER (DESENEX AF) 90 GM TOP SCH ×2 (07:44→20:54)
[2020-05-07] MEDS: polyethylene glycoL POWDER 17 GM (MIRALAX) PACK PO SCH ×2 (07:44→21:01)
[2020-05-07] MEDS: BISACODYL 10 MG SUPP (DULCOLAX) PR PRN (07:51)
--- NOTE | 2020-05-07 09:02 | Occupational Ther Daily Note ---
OT Current Status-Daily Note Subjective Pt alert in bed this am. Pt agrees to tx. Pt completes OT/ PT co-treat due to need of 2 skilled clinicians for increased activity. OT addresses ADLs, UE movement, balance, attention to task as PT addresses LE movement/ strength, standing balance. ADL-Treatment Therapy Code Descriptions/Definitions Functional [place] Measure: 0=Not Assessed/NA 4=Minimal Assistance 1=Total Assistance 5=Supervision or Setup 2=Maximal Assistance 6=Modified [place] 3=Moderate Assistance 7=Complete IndependenceSCALE: Activities may be completed with or without assistive devices. 1-Zkdoxlmvej-uhsovxn completes the activity by him/herself with no assistance from a helper. 5-Set-up or Clean-up Assistance-helper sets up or cleans up; patient completes activity. [place] assists only prior to or following the activity. 4-Supervision or Touching Assistance-helper provides verbal cues and/or touching/steadying and/or contact guard assistance as patient completes activi ty. Assistance may be provided throughout the activity or intermittently. 3-Partial/Moderate Assistance-helper does LESS THAN HALF the effort. [place] lifts, holds or supports trunk or limbs, but provides less than half the effort. 2-Substantial/Maximal Assistance-helper does MORE THAN HALF the effort. [place] lifts or holds trunk or limbs and provides more than half the effort. 0-Knxoyijvu-ymdozx does ALL the effort. Patient does none of the effort to complete the activity. Or, the assistance of 2 or more helpers is required for the patient to complete the activity. If activity was not attempted, code reason: 7-Patient Refused. 9-Not Applicable-not attempted and the patient did not perform the activity before the current illness, exacerbation or injury. 10-Not Attempted due to Environmental Limitations-(lack of equipment, weather restraints, etc.). 88-Not Attempted due to Medical Conditions or Safety Concerns. Eating (QC): 6 Oral Hygiene (QC): 6 (completes up in w/c. ) Upper Body Dressing (QC): 3 (min A RUE assist) Lower Body Dressing (QC): 4 (SBA and cues for process with RUE: completes in bed with increased IND) On/Off Footwear: 3 (mod A RLE shoe.) Toileting Hygiene (QC): 1 (TD due to need of 2 people: PT stands/ addresses balance as OT addresses bottom hygiene.) Toilet Transfer (QC): 3 (min A SPT) Other Treatment Pt completes OT/ PT co-treat due to need of 2 skilled clinicians for increased activity. OT addresses ADLs, UE movement, balance, attention to task as PT addresses LE movement/ strength, standing balance. Bed mob with SBA. SPT to w/c placed on L side. Pt propels to gym with IND. Pt SPT to weak side with min A. Completes sitting balance/ reaching tasks to R side with SBA, increased time though no LOB. Pt completes modified sit-ups (10 reps) with fair endurance. Pt requests need for BM. Pt SPT to w/c with min A, pushed by therapists and reaches toilet and completes as above. Pt returns to gym, completing 10 sit to stands without rest break and PT addresses R knee blocking while OT addresses R UE placement and sequencing (fair). Pt completes stance with CGA and no knee blocking to work towards higher fx IND transfers and activity tolerance. Pt stands multiple rounds, requiring CGA-min A for righting. Pt returns to room, requests bed. Bed mob min A, all needs met, call light in reach. OT individual tx: Pt supine in bed. Pt agrees to tx. States pain in R side. Pt's nurse notified. Pt supine to sit SBA. SPT to w/c to strong side min A. Pt propels self to bathroom, completes oral care IND. Pt requires increased time for this task. Pt left with PT end of session with all needs met. Education OT Patient Education: Correct positioning, Exercise program, Home exercise ted stiles, Modified ADL techniques, Progress toward Goal/Update tx plan, Purpose of tx/functional activities, Safety issues, Transfer techniques Teaching Recipient: Patient Teaching Methods: Demonstration, Discussion Response to Teaching: Verbalize Understanding, Return Demonstration OT Short Term Goals Short Term Goals Eatin Oral hygiene: 5 Toileting hygiene: 2 Shower/bathe self: 2 Upper body dressin Lower body dressin Putting on/taking off footwear: 2 OT Radio Program Checker Goals Radio Program Checker Goals Time Frame: Apr 24, 2020 Eating (QC): 6 Oral Hygiene (QC): 6 Toileting Hygiene (QC): 3 Shower/Bathe Self (QC): 3 Upper Body Dressing (QC): 6 Lower Body Dressing (QC): 3 On/Off Footwear (QC): 6 Additional Goals: 1-Demonstrate ADL Tasks, 2-Verbalize Understanding, 3- ImproveStrength/[place] 1=Demonstrate adherence to instructed precautions during ADL tasks. 2=Patient will verbalize/demonstrate understanding of assistive devices/modifications for ADL. 3=Patient will improve strength/tolerance for activity to enable patient to perform ADL's. OT Education/Plan Problem List/Assessment Assessment: Decreased Activ Tolerance, Decreased UE Strength, Dependent Transfers, Impaired Bed Mobility, Impaired Coordination, Impaired Funct Balance, Impaired I ADL's, Impaired Self-Care Skills, Restricted Funct UE ROM, Visual- Perceptual Deficit Discharge Recommendations Plan/Recommendations: Continue POC Therapy Discharge Recommendati: 24 Hour Supervision, Post Acute OT Treatment Plan/Plan of Care Treatment,Training & Education: Yes Patient would benefit from OT for education, treatment and training to promote independence in ADL's, mobility, safety and/or upper extremity function for ADL's. Plan of Care: ADL Retraining, Caregiver Training, Concurrent Therapy, Functional Mobility, Group Exercise/Act as Ind, Orthotic Fitting/Training, UE Funct Exercise/Act, UE Neuromus Re-Ed/Coord, Visual/Perceptual Retrain, W/C Management Training Treatment Duration: Apr 24, 2020 Frequency: At least 5 of 7 days/Wk (IRF) Estimated Hrs Per Day: 1.5 hours per day Agreement: Yes Rehab Potential: Fair Time/GCodes Start Time: 08:00 (1300) Stop Time: 09:00 (1320) Total Time Billed (hr/min): 80 Billed Treatment Time Pt completes OT/ PT co-treat due to need of 2 skilled clinicians for increased activity. OT addresses ADLs, UE movement, balance, attention to task as PT addresses LE movement/ strength, standing balance. [id number]: 1, ADL, EX 2, NM (60) [id number]: 1, ADL (20) FATIMAH KERNS OTR May 07, 2020 09:02
--- NOTE | 2020-05-07 09:58 | Physical Therapy Daily Note ---
PT Daily Note-Current Subjective Patient in bed pre tx, agrees to PT, has no complaints of pain, will be co- treating with OT due to poor patient mobility, strength, endurance, right hemiparesis, the need to coordinate UE and LE during activity. Appearance Patient in bed post tx with nurse call, phone, tray, all needs met. Mental Status Patient Orientation: Person, Place, Situation Transfers SCALE: Activities may be completed with or without assistive devices. 9-Lfcpuucqnt-ximaojq completes the activity by him/herself with no assistance from a helper. 5-Set-up or Clean-up Assistance-helper sets up or cleans up; patient completes activity. [place] assists only prior to or following the activity. 4-Supervision or Touching Assistance-helper provides verbal cues and/or touching/steadying and/or contact guard assistance as patient completes activity. Assistance may be provided throughout the activity or intermittently. 3-Partial/Moderate Assistance-helper does LESS THAN HALF the effort. [place] lifts, holds or supports trunk or limbs, but provides less than half the effort. 2-Substantial/Maximal Assistance-helper does MORE THAN HALF the effort. [place] lifts or holds trunk or limbs and provides more than half the effort. 0-Klbtxsxen-ahexgv does ALL the effort. Patient does none of the effort to complete the activity. Or, the assistance of 2 or more helpers is required for the patient to complete the activity. If activity was not attempted, code reason: 7-Patient Refused. 9-Not Applicable-not attempted and the patient did not perform the activity before the current illness, exacerbation or injury. 10-Not Attempted due to Environmental Limitations-(lack of equipment, weather restraints, etc.). 88-Not Attempted due to Medical Conditions or Safety Concerns. Roll Left & Right (QC): 3 Sit to Lying (QC): 3 Lying to Sitting/Side of Bed(Q: 3 Sit to Stand (QC): 3 Chair/Wnh-fj-Jkpcj Xfer(QC): 3 CGA stand pivot to the left side, min assist to the right side. Patient is dressed, has to go back to his room during therapy to have a BM, needs assist with dressing and cleaning and balance when standing. Weight Bearing Full Weight Bearing Full Weight Bearing Wheelchair Training Does the Pt Use a Wheelchair?: Yes Wheel 50 ft with 2 turns (QC): 4 Wheel 150 ft (QC): 4 Exercises Sit to stand 2 sets of 10, abdominal exercise while seated, limits of stability training seated Treatments PT worked on bed mobility, transfers, exercise and balance training, standing and positioning during toileting, OT worked on toileting, dressing, assist with UE positioning and safety during activity. Assessment Current Status: Poor Progress No change in mobility. PT Short Term Goals Short Term Goals Time Frame: Apr 18, 2020 Roll Left & Right: 3 Sit to lyin Lying to sitting on side of be: 3 Sit to stand: 3 Chair/hwi-sd-aldrd transfer: 3 PT Electroless Plater Goals Snf Goals PT Snf Goals Time Frame: May 02, 2020 Roll Left & Right (QC): 3 (Zoya) Sit to Lying (QC): 3 (Zoya) Lying-Sitting on Side/Bed(QC): 3 (Zoya) Sit to Stand (QC): 3 (Zoya) Chair/Vbu-tc-Rshfc Xfer(QC): 3 (Zoya) Toilet Transfer (QC): 3 (Zoya) Car Transfer (QC): 3 (Zoya) Does the Patient Walk: No and Walking Goal NOT indicated Walk 10 feet (QC): 88 Walk 50ft with 2 Turns (QC): 88 Walk 150 ft (QC): 88 Walking 10ft on Uneven Surface: 88 1 Step (curb) (QC): 88 4 Steps (QC): 88 12 Steps (QC): 88 Picking up an Object (QC): 88 Wheel 50 feet with 2 turns (QC: 4 Wheel 150 feet: 4 PT Plan Problem List Problem List: Activity Tolerance, Functional Strength, Safety, Balance, Gait, Transfer, Bed Mobility, ROM Treatment/Plan Treatment Plan: Continue Plan of Care Treatment Plan: Bed Mobility, Education, Functional Activity [place], Functional Strength, Group Therapy, Gait, Safety, Therapeutic Exercise, Transfers Treatment Duration: May 01, 2020 Frequency: At least 5 of 7 days/Wk (IRF) Estimated Hrs Per Day: 1.5 hours per day Patient and/or Family Agrees t: Yes Safety Risks/Education Patient Education: Transfer Techniques, Correct Positioning, W/C Management, Safety Issues Teaching Recipient: Patient Teaching Methods: Demonstration, Discussion Response to Teaching: Reinforcement Needed Time/GCodes Time In: 0800 Time Out: 0900 Total Billed Treatment Time: 60 Total Billed Treatment 1 visit EX 20' FA 40' DARRYL BARTLETT PT May 07, 2020 09:58
[2020-05-07] MEDS ORDERED: ZINC OXIDE 16% OINT (BUTT PASTE) 57 GM TUBE TOP PRN (10:45)
--- NOTE | 2020-05-07 13:35 | Physical Therapy Daily Note ---
PT Daily Note-Current Subjective Patient in WC pre tx, agrees to PT, nurse is here to give him pain meds. Appearance Patient in bed post tx with nurse call, phone, tray, all needs met. Mental Status Patient Orientation: Person, Unable to Assess, Non-Verbal/Aphasic Transfers SCALE: Activities may be completed with or without assistive devices. 7-Wnqvjlzfvk-qlthlgd completes the activity by him/herself with no assistance from a helper. 5-Set-up or Clean-up Assistance-helper sets up or cleans up; patient completes activity. [place] assists only prior to or following the activity. 4-Supervision or Touching Assistance-helper provides verbal cues and/or touching/steadying and/or contact guard assistance as patient completes activity. Assistance may be provided throughout the activity or intermittently. 3-Partial/Moderate Assistance-helper does LESS THAN HALF the effort. [place] lifts, holds or supports trunk or limbs, but provides less than half the effort. 2-Substantial/Maximal Assistance-helper does MORE THAN HALF the effort. [place] lifts or holds trunk or limbs and provides more than half the effort. 8-Gjepldtkd-slzgpm does ALL the effort. Patient does none of the effort to complete the activity. Or, the assistance of 2 or more helpers is required for the patient to complete the activity. If activity was not attempted, code reason: 7-Patient Refused. 9-Not Applicable-not attempted and the patient did not perform the activity before the current illness, exacerbation or injury. 10-Not Attempted due to Environmental Limitations-(lack of equipment, weather restraints, etc.). 88-Not Attempted due to Medical Conditions or Safety Concerns. Roll Left & Right (QC): 3 Sit to Lying (QC): 3 Stand pivot transfer to bed from , min assist for sit to supine, needs assist of 2 to scoot up in bed. Weight Bearing Full Weight Bearing Full Weight Bearing Exercises Supine Ex: Heel Slides, Short Arc Quads, Straight leg raise, Hip abd/add Supine Reps: 20 (AAROM of RLE) RLE PROM/stretching in all planes Treatments transfers and bed mobility, LE exercise Assessment Current Status: Poor Progress no change in mobility but has slightly improved active muscle contraction in RLE PT Short Term Goals Short Term Goals Time Frame: Apr 18, 2020 Roll Left & Right: 3 Sit to lyin Lying to sitting on side of be: 3 Sit to stand: 3 Chair/hum-zd-omnwh transfer: 3 PT Software Developer Intern Goals Halfway Goals PT Halfway Goals Time Frame: May 02, 2020 Roll Left & Right (QC): 3 (Zoya) Sit to Lying (QC): 3 (Zoya) Lying-Sitting on Side/Bed(QC): 3 (Zoya) Sit to Stand (QC): 3 (Zoya) Chair/Nll-wu-Umvuy Xfer(QC): 3 (Zoya) Toilet Transfer (QC): 3 (Zoya) Car Transfer (QC): 3 (Zoya) Does the Patient Walk: No and Walking Goal NOT indicated Walk 10 feet (QC): 88 Walk 50ft with 2 Turns (QC): 88 Walk 150 ft (QC): 88 Walking 10ft on Uneven Surface: 88 1 Step (curb) (QC): 88 4 Steps (QC): 88 12 Steps (QC): 88 Picking up an Object (QC): 88 Wheel 50 feet with 2 turns (QC: 4 Wheel 150 feet: 4 PT Plan Problem List Problem List: Activity Tolerance, Functional Strength, Safety, Balance, Gait, Transfer, Bed Mobility, ROM Treatment/Plan Treatment Plan: Continue Plan of Care Treatment Plan: Bed Mobility, Education, Functional Activity [place], Functional Strength, Group Therapy, Gait, Safety, Therapeutic Exercise, Transfers Treatment Duration: May 01, 2020 Frequency: At least 5 of 7 days/Wk (IRF) Estimated Hrs Per Day: 1.5 hours per day Patient and/or Family Agrees t: Yes Safety Risks/Education Patient Education: Transfer Techniques, Correct Positioning, Safety Issues Teaching Recipient: Patient Teaching Methods: Demonstration, Discussion Response to Teaching: Reinforcement Needed Time/GCodes Time In: 1320 Time Out: 1335 Total Billed Treatment Time: 15 Total Billed Treatment 1 visit EX 15' DARRYL BARTLETT PT May 07, 2020 13:35
--- NOTE | 2020-05-07 13:46 | Speech Therapy Daily Note ---
Speech Daily Progress Note Subjective Date Seen by Provider: May 07, 2020 Time Seen by Provider: 00:30 Patient was resting in his bed following his PT and OT session. Objective Patient completed a series of simple trivia with 50% accuracy given 30% verbal cues and/or repetitions. Assessment Assessment Current Status: Fair Progress Treatment Plan Continue Plan of Care Speech Short Term Goals Short Term Goals Short Term Goals 1) The patient will complete OME for improved speech production at each session with 80% or greater accuracy. 2) The patient will complete word finding tasks with 80% or greater accuracy. 3) The patient will complete expressive language tasks 80% or greater accuracy. 4) The patient will tolerate least restrictive diet level without s/s of aspiration at 80% or greater accuracy. 5) The patient will utilize compensatory strategies as trained 80% or greater accuracy. Speech Half-Way Goals Machine Operations Supervisor Goals Patient will improve cognitive-communication abilities for completion of daily needs with minimal assist. Patient will maintain adequate nutrition/hydration via safe effective swallow function. Speech-Plan Patient/Family Goals Patient/Family Goals: Patient is to discharge to a SNF once the insurance factors are approved. 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
--- NOTE | 2020-05-07 16:21 | NUR ---
CM/SS DISCHARGE PLANNING Complex discharge planning primarily due to financial status. Newly approved [place] Medicaid which will pay only room rate and not therapy; therefore, SNF's reluctant to take patient due to his diagnosis and best practice care plan would be to continue therapy so that his gains are not lost. Additionally, his age of 59 is in a minority in community SNF's and some shy from acceptance for that reason. Referrals this date: [facility] [place], [place] Pending: [facility] since 05/03. Spoke with Rae Mcgregor [facility], 05/06 and re-faxed Medicaid information as requested. Contacted Liaadeel Odonnell today for assistance in finalizing referral for acceptance/denial. DENIALS: [facility] and/or not taking referrals/admissions: [facility] Following daily until accepting facility confirmed.
[2020-05-07] MEDS: ACETAMINOPHEN 325 MG TABLET PO PRN (16:25)
[2020-05-07 18:00] VITALS: BP 98/59
--- NOTE | 2020-05-07 19:07 | NUR ---
Bedside report received from SANIYA MARSHALL, assume care of pt
--- NOTE | 2020-05-07 20:52 | NUR ---
refused Colace, Miralax & [place], c/o pain to RT side, level 7/10 on numeric scale, Oxyir 5mg given in pudding
--- NOTE | 2020-05-07 21:45 | NUR ---
rates pain 4/10 on numeric scale
[2020-05-08 06:17] VITALS: BP 101/69
--- NOTE | 2020-05-08 08:55 | PM&R Progress Note ---
Subjective HPI/CC On Admission Date Seen by Provider: May 08, 2020 Time Seen by Provider: 09:00 Subjective/Events-last exam : No significant change Working pretty well with therapy Expressive aphasia makes it difficult to communicate 05/07/20: Suppository given due to no BM for four days Urinating in the urinal now Butt-paste maintained for skin protection 05/06/20: Pt doing pretty well Awaiting long-term placement Labs remain stable Overall doing well 05/05/20: No changes Right sided pain still present Awaiting placement in NH 05/04/20: No major issues BM yesterday no supp used 05/02/20: No major changes More alert today In chair today No BM for several days and refuses suppository 05/01/20: No major changes Refuses suppository Pain on the right side continues Incontinent Sister did family training and felt like he will need to go to a nursing facility [facility] was sent a referral 04/30/20: No major changes Laxatives were refused and he is having a BM every other day without the suppository Denies any significant new issues 04/29/20: Patient reports no major issues No pain reported Pain meds are helpful 04/28/20: Periarea red so will start antifungal powder No pain reported otherwise Incontinence will require 24 nursing care along with severe deficit 04/27/2020: Incontinence of both bowel and bladder are limitations Denies any significant new issues Pain is pretty well controlled on the right side for flaccidity muscle spasms 04/26/2020: Patient denies any pain Incontinence requires nursing care 14/12 Pain is pretty well controlled Expressive aphasia makes it difficult to communicate 04/25/20: No major issues Pain controlled Participation with PT 04/24/20: Pt doing pretty well Bowels move after suppository every 48 hrs Decreasing pain medication Decreasing Cozaar due to hypotension per cardiology 04/23/20: BM after suppository every 48hrs Gabapentin BID seems to be working pretty well Using Oxycodone when Gabapentin is not enough No falls 04/22/20: No major issues Expressive aphasia continues Bowels moved yesterday after suppository given every 48 hours 04/21/20: Suppository today and BM Incontinent of B/B Pain improved Does not need to increase Gabapentin 04/20/20: BM yesterday Pain improved Sleepy today Doing better Incontinence : Improve right sided nerve pain Xanax and pain pill helps him BM after suppository Q 48 hours Incontinent of B/B 04/18/20: BM 04/17/20 Eliquis causes blurry vision per sister so will inquire with Dr Gibson regarding Xarelto Incontinent 04/17/20: Bowels not moving so will initiate Dulcolax suppository every 48hrs after laxatives given and he is agreeable for that plan Denies any significant new issues Pain is getting much better with the Gabapentin twice daily and Oxycodone 04/16/20: Right-sided pain still so increased Gabapentin to 300 Mg BID Xanax will help too Oxycodone also helps 04/15/20: Gabapentin maintained Oxycodone maintained Confusion noted? 04/14/20: Monitoring BP Pain right side still present and will increase Gabapentin 04/13/20: Right arm and right leg pain and issue Oxycodone not really helping Nerve pain so will give Gabapentin 04/12/20: Severe pain on right side Oxycodone ordered Participating in therapies well No other pain Pt doing pretty well Expressive aphasia is an issue WBC is 12.4 CMP normal Consulting cardiology Overall doing very well Conferred with RN Checked meds and labs Reviewed therapy notes Objective Exam Vital Signs Vital Signs Date Time Temp Pulse Resp B/P (MAP) Pulse Ox O2 Delivery O2 Flow Rate FiO2 05/08/20 20:20 Room Air 05/08/20 18:00 36.9 80 18 114/70 (85) 96 Capillary Refill : Less Than 3 Seconds General Appearance: No Apparent Distress, WD/WN, Chronically ill HEENT: PERRL/EOMI, Normal ENT Inspection, Pharynx Normal Neck: Full Range of Motion, Normal Inspection, Non Tender, Supple, Carotid Bruit Respiratory: Chest Non Tender, Lungs Clear, Normal Breath Sounds, No Accessory Muscle Use, No Respiratory Distress Cardiovascular: Regular Rate, Rhythm, No Edema, No Gallop, No JVD, No Murmur, Normal Peripheral Pulses Gastrointestinal: Normal Bowel Sounds, No Organomegaly, No Pulsatile Mass, Non Tender, Soft Back: Normal Inspection, No CVA Tenderness, No Vertebral Tenderness Extremity: Normal Capillary Refill, Normal Inspection, Normal Range of Motion, Non Tender, No Calf Tenderness, No Pedal Edema Neurologic/Psychiatric: Alert, Normal Mood/Affect, Abnormal Gait, Aphasia, Depressed Affect, Disoriented, Motor Weakness (right sided flaccidity) Skin: Normal Color, Warm/Dry Lymphatic: No Adenopathy Results/Procedures Lab Patient resulted labs reviewed. FIM Transfers Therapy Code Descriptions/Definitions Functional [place] Measure: 0=Not Assessed/NA 4=Minimal Assistance 1=Total Assistance 5=Supervision or Setup 2=Maximal Assistance 6=Modified [place] 3=Moderate Assistance 7=Complete IndependenceSCALE: Activities may be completed with or without assistive devices. 0-Eakuzhtdpo-cpjxgvm completes the activity by him/herself with no assistance from a helper. 5-Set-up or Clean-up Assistance-helper sets up or cleans up; patient completes activity. [place] assists only prior to or following the activity. 4-Supervision or Touching Assistance-helper provides verbal cues and/or touching/steadying and/or contact guard assistance as patient completes activity. Assistance may be provided throughout the activity or intermittently. 3-Partial/Moderate Assistance-helper does LESS THAN HALF the effort. [place] li fts, holds or supports trunk or limbs, but provides less than half the effort. 2-Substantial/Maximal Assistance-helper does MORE THAN HALF the effort. [place] lifts or holds trunk or limbs and provides more than half the effort. 6-Jzrwtuskk-rpwllx does ALL the effort. Patient does none of the effort to complete the activity. Or, the assistance of 2 or more helpers is required for the patient to complete the activity. If activity was not attempted, code reason: 7-Patient Refused. 9-Not Applicable-not attempted and the patient did not perform the activity before the current illness, exacerbation or injury. 10-Not Attempted due to Environmental Limitations-(lack of equipment, weather restraints, etc.). 88-Not Attempted due to Medical Conditions or Safety Concerns. Roll Left to Right (QC): 3 Sit to Lying (QC): 3 Sit to Stand (QC): 3 Chair/Ajr-ie-Ryahn Xfer(QC): 3 Car Transfer (QC): 3 Gait Training Does the Patient Walk?: Yes Distance: 20'x3 Walk 10 feet (QC): 3 Walk 50 ft with 2 Turns(QC): 88 Walk 150 ft (QC): 88 Walking 10ft/uneven surface-QC: 88 Gait Persons Needed: 1 Gait Assistive Device: Walker Jose Wheelchair Training Does the Pt Use a Wheelchair?: Yes Wheel 50 ft with 2 turns (QC): 4 Wheel 150 ft (QC): 4 Type of Wheelchair: Manual Stair Training 1 Step (curb) (QC): 88 4 Steps (QC): 88 12 Steps (QC): 88 Balance Picking up an Object (QC): 88 ADL-Treatment Eating (QC): 6 Oral Hygiene (QC): 6 (completes up in w/c. ) Bathing Location: L Arm, R Arm, L Upper Leg, R Upper Leg, L Lower Leg (including foot), R Lower Leg (including foot), Chest, Abdomen, Buttocks, Perineal Area Shower/Bathe Self (QC): 4 (SUP during tasks in sc.) Upper Body Dressing (QC): 3 (min A RUE assist) Lower Body Dressing (QC): 4 (SBA and cues for process with RUE: completes in bed with increased IND) On/Off Footwear (QC): 3 (mod A RLE shoe.) Toileting Hygiene (QC): 1 (TD due to need of 2 people: PT stands/ addresses balance as OT addresses bottom hygiene.) Toilet Transfer (QC): 3 (min A SPT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 Defib in place Cardiomyopathy HTN Plan: Monitor dysphagia Cardiology consultation IRF protocol 04/11/20: Monitor BP Appreciate Cardiology 04/12/20: Monitor closely Pain management 04/13/20: Gabapentin Oxycodone 04/14/20: Increase Gabapentin Oxycodone BM regimen to increase today may need supp 04/15/20: BM++ Monitor pain of right side 04/16/20: Increase dose of Neurontin Maintain aggressive rehab 04/17/20: BM regimen to include supp Q48 hrs Monitor pain Monitor BP 04/18/20: Increased Gabpentin some more today BM regimen 04/19/20: Manage incontinence Right arm and right leg pain management 04/20/20: Maintain pain control Incontinence management BM regimen 04/21/20: Suppository [id number] Monitor closely Pain control 04/22/20: Continue BM regimen Monitor right sided pain 04/23/20: BM regimen PT OT Incontinence care 04/24/20: Monitor BP Fall risk BM regimen 04/25/20: No med changes Pain controlled 04/26/2020: Pain management Bowel regimen with suppository every 48 hours Continue intensive therapy 04/27/2020: Aggressive therapy Incontinence care Pain control 04/28/20: Monitor closely Periarea powder Monitor pain Check labs in am 04/29/20: Labs reviewed Monitor pain issues 04/30/20: Continue therapy Needs dispo 05/01/20: DC to NH at DC Monitor closely Pain continues and difficult to ascertain due to expressive aphasia 05/02/20: Pain control Incontinence care Needs NH placement 05/04/20: Monitor BM Needs NH 05/05/20: Incontinence care 05/06/20: Await NHP Labs normal 05/07/20: DC to NH once accepted 05/08/20: Monitor closely (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
[2020-05-08] MEDS: ASPIRIN 81 MG CHEW (CHILDREN'S ASA) PO SCH (08:59)
[2020-05-08] MEDS: APIXABAN 5 MG (ELIQUIS) TABLET PO SCH ×2 (08:59→20:46)
[2020-05-08] MEDS: SPIRONOLACTONE 25 MG (ALDACTONE) TAB PO SCH (08:59)
[2020-05-08] MEDS: polyethylene glycoL POWDER 17 GM (MIRALAX) PACK PO SCH ×2 (08:59→19:55)
[2020-05-08] MEDS: BISOPROLOL 5 MG TAB (ZEBETA) PO SCH (08:59)
[2020-05-08] MEDS: DOCUSATE SODIUM 100 MG (COLACE) CAP PO SCH ×2 (08:59→20:46)
[2020-05-08] MEDS: GABAPENTIN 400 MG (NEURONTIN) CAP PO SCH ×2 (08:59→20:46)
[2020-05-08] MEDS: SENNA W/DOCUSATE (SENOKOT S) TABLET PO SCH ×2 (08:59→20:46)
[2020-05-08] MEDS: MICONAZOLE 2% POWDER (DESENEX AF) 90 GM TOP SCH ×2 (09:00→20:46)
[2020-05-08] MEDS: DICLOFENAC 1% GEL 100 GM (VOLTAREN) TUBE TOP SCH ×4 (09:00→20:46)
--- NOTE | 2020-05-08 10:38 | Speech Therapy Daily Note ---
Speech Daily Progress Note Subjective Date Seen by Provider: May 08, 2020 Time Seen by Provider: 00:30 Patient was sitting up in his recliner watching television when I entered his room. Patient was pleasant today. Objective Patient completed simple one word answer trivia with 30% accuracy with frequent "I don't know" as his answer. He was provided 50% verbal cues and repetitions. Patient demonstrates utilization of safety strategies for oral intake at 80% with mild cues. Assessment Assessment Current Status: Fair Progress Treatment Plan Continue Plan of Care Speech Short Term Goals Short Term Goals Short Term Goals 1) The patient will complete OME for improved speech production at each session with 80% or greater accuracy. 2) The patient will complete word finding tasks with 80% or greater accuracy. 3) The patient will complete expressive language tasks 80% or greater accuracy. 4) The patient will tolerate least restrictive diet level without s/s of aspiration at 80% or greater accuracy. 5) The patient will utilize compensatory strategies as trained 80% or greater accuracy. Speech Senior Living Goals Investment Director Goals Patient will improve cognitive-communication abilities for completion of daily needs with minimal assist. Patient will maintain adequate nutrition/hydration via safe effective swallow function. Speech-Plan Patient/Family Goals Patient/Family Goals: Patient will discharge to another facility when placement is confirmed. Treatment Plan Speech Therapy Treatment Plan: Continue Plan of Care Treatment Duration: May 15, 2020 Frequency: 4 times per week (Patient will receive skilled ST 4-5x per week) Estimated Hrs Per Day: .5 hour per day Rehab Potential: Fair Barriers to Learning: Patient's recent CVA and expressive aphasia Pt/Family Agrees to Plan: Yes Safety Risks/Education Teaching Recipient: Patient Teaching Methods: Demonstration, Discussion Response to Teaching: Verbalize Understanding, Return Demonstration Education Topics Provided: Continued safety within the room, continued safety of oral intake Time Speech Therapy Time In: 09:30 Speech Therapy Time Out: 10:00 Total Billed Time: 30 Billed Treatment Time 1, TYRONE, FIDEL Najera May 08, 2020 10:38
--- NOTE | 2020-05-08 11:45 | Physical Therapy Daily Note ---
PT Daily Note-Current Subjective Pt. agrees to co Rx PT OT. No c/o pain until 2nd Rx in which pt. c/o pain in right thigh and groin ( by pointing) did not rate pain Mental Status Patient Orientation: Non-Verbal/Aphasic Transfers SCALE: Activities may be completed with or without assistive devices. 1-Wtkdwbzzgn-cnufphd completes the activity by him/herself with no assistance from a helper. 5-Set-up or Clean-up Assistance-helper sets up or cleans up; patient completes activity. [place] assists only prior to or following the activity. 4-Supervision or Touching Assistance-helper provides verbal cues and/or touching/steadying and/or contact guard assistance as patient completes activity. Assistance may be provided throughout the activity or intermittently. 3-Partial/Moderate Assistance-helper does LESS THAN HALF the effort. [place] lifts, holds or supports trunk or limbs, but provides less than half the effort. 2-Substantial/Maximal Assistance-helper does MORE THAN HALF the effort. [place] lifts or holds trunk or limbs and provides more than half the effort. 1-Hqxzyesdz-ovcyzt does ALL the effort. Patient does none of the effort to complete the activity. Or, the assistance of 2 or more helpers is required for the patient to complete the activity. If activity was not attempted, code reason: 7-Patient Refused. 9-Not Applicable-not attempted and the patient did not perform the activity before the current illness, exacerbation or injury. 10-Not Attempted due to Environmental Limitations-(lack of equipment, weather restraints, etc.). 88-Not Attempted due to Medical Conditions or Safety Concerns. Roll Left & Right (QC): 6 Sit to Lying (QC): 6 Lying to Sitting/Side of Bed(Q: 4 Sit to Stand (QC): 4 Chair/Ebn-tw-Wowlh Xfer(QC): 4 SPTs improving moving toward pts left, but TRF SPT to right still requires mod assist. Pt. not consistently comprehending the concept of TRFs to left only as well as how to align his w/c to make this as efficient and safe as possible Weight Bearing Full Weight Bearing Full Weight Bearing Wheelchair Training Does the Pt Use a Wheelchair?: Yes Wheel 50 ft with 2 turns (QC): 6 Wheel 150 ft (QC): 6 Type of Wheelchair: Manual needs reminders to lock both brakes Exercises Supine Ex: Bridging, Ankle pumps (HC stretch on right), Quad Set, Rolling, Glut sets, Heel Slides (right assisted), Short Arc Quads (right assisted), Scooting (up in bed indep), Straight leg raise, Hip abd/add (right assisted) Supine Reps: 15 Seated Therapy Exercises: Sit to stand Seated Reps: 10 Treatments co Rx OT PT for sti to stands, showering and dressing and w/c mob, 2nd Rx PT only for therex in supine. Assessment Current Status: Good Progress pt. gives full effort, continues dependent for patent TRFs in out w/c, gait is not functional at this time requiring max to mod assist to advance and stabilize RLE PT Short Term Goals Short Term Goals Time Frame: Apr 18, 2020 Roll Left & Right: 3 Sit to lyin Lying to sitting on side of be: 3 Sit to stand: 3 Chair/chu-oe-qeivx transfer: 3 PT Belt And Link Assembly Supervisor Goals Belt And Link Assembly Supervisor Goals PT Belt And Link Assembly Supervisor Goals Time Frame: May 02, 2020 Roll Left & Right (QC): 3 (Zoya) Sit to Lying (QC): 3 (Zoya) Lying-Sitting on Side/Bed(QC): 3 (Zoya) Sit to Stand (QC): 3 (Zoya) Chair/Uex-nx-Zncdk Xfer(QC): 3 (Zoya) Toilet Transfer (QC): 3 (Zoya) Car Transfer (QC): 3 (Zoya) Does the Patient Walk: No and Walking Goal NOT indicated Walk 10 feet (QC): 88 Walk 50ft with 2 Turns (QC): 88 Walk 150 ft (QC): 88 Walking 10ft on Uneven Surface: 88 1 Step (curb) (QC): 88 4 Steps (QC): 88 12 Steps (QC): 88 Picking up an Object (QC): 88 Wheel 50 feet with 2 turns (QC: 4 Wheel 150 feet: 4 PT Plan Treatment/Plan Treatment Plan: Continue Plan of Care Treatment Plan: Bed Mobility, Education, Functional Activity [place], Functional Strength, Group Therapy, Gait, Safety, Therapeutic Exercise, Transfers Treatment Duration: May 01, 2020 Frequency: At least 5 of 7 days/Wk (IRF) Estimated Hrs Per Day: 1.5 hours per day Patient and/or Family Agrees t: Yes Safety Risks/Education Patient Education: Transfer Techniques, Correct Positioning, W/C Management, Disease Process, Safety Issues Teaching Recipient: Patient Teaching Methods: Demonstration, Discussion Response to Teaching: Verbalize Understanding, Return Demonstration, Reinforcement Needed Time/GCodes Time In: 800 (1105) Time Out: 900 (1125) Total Billed Treatment Time: 80 Total Billed Treatment 1,FA60m,EX20m 60 m co Rx with ZAIRA MYRICK [employer] DEF[employer] INCIDENT RESPONDER May 08, 2020 11:45
--- NOTE | 2020-05-08 12:04 | Occupational Ther Daily Note ---
OT Current Status-Daily Note Subjective OT individual tx: [id number]: Pt asleep in bed, agrees to tx post-waking. OT/ pt address RUE prior to OT/ PT co-treat. Pt motions pain down R side, including head this date. Pt states some issues with pain in shoulder/ scapula during stretching, though states, "Right there," during manual muscle relaxation tech niques. OT/ PT co-treat from [id number]: OT addresses ADLs, UE movement, visual scanning and problem solving while PT addresses LE movement, balance, fx transfers, mobility. ADL-Treatment Therapy Code Descriptions/Definitions Functional [place] Measure: 0=Not Assessed/NA 4=Minimal Assistance 1=Total Assistance 5=Supervision or Setup 2=Maximal Assistance 6=Modified [place] 3=Moderate Assistance 7=Complete IndependenceSCALE: Activities may be completed with or without assistive devices. 6-Gjiavblctd-eoylndo completes the activity by him/herself with no assistance from a helper. 5-Set-up or Clean-up Assistance-helper sets up or cleans up; patient completes activity. [place] assists only prior to or following the activity. 4-Supervision or Touching Assistance-helper provides verbal cues and/or touching/steadying and/or contact guard assistance as patient completes activity. Assistance may be provided throughout the activity or intermittently. 3-Partial/Moderate Assistance-helper does LESS THAN HALF the effort. [place] lifts, holds or supports trunk or limbs, but provides less than half the effort. 2-Substantial/Maximal Assistance-helper does MORE THAN HALF the effort. [place] lifts or holds trunk or limbs and provides more than half the effort. 2-Cbgkmzqwz-xvvuab does ALL the effort. Patient does none of the effort to complete the activity. Or, the assistance of 2 or more helpers is required for the patient to complete the activity. If activity was not attempted, code reason: 7-Patient Refused. 9-Not Applicable-not attempted and the patient did not perform the activity before the current illness, exacerbation or injury. 10-Not Attempted due to Environmental Limitations-(lack of equipment, weather restraints, etc.). 88-Not Attempted due to Medical Conditions or Safety Concerns. Eating (QC): 6 Shower/Bathe Self (QC): 3 (min A bottom ) Upper Body Dressing (QC): 3 (min A) Lower Body Dressing (QC): 1 (TD due to need of 2 people (CGA PT in stance and OT pulls over hips). Though pt able to thread over BLE with min A and completes stance at gbs with CGA) On/Off Footwear: 3 (min A supporting R LE) Toilet Transfer (QC): 4 (CGA) Other Treatment Pt instructed on RUE AAROM, completes full forward flexion/ abduction/ adduction with use of manual techniques to decrease muscle tightness. Pt yawns multiple times through stretching with an increase of tone noted with visual composite fist and elbow flexion toward chest. Pt is educated on this increase of tone and fx indications. OT/ PT co-treat from [id number]: OT addresses ADLs, UE movement, visual scanning and problem solving while PT addresses LE movement, balance, fx transfers, mobility. Bed mob min A. SPT to w/c with min A-CGA. Pt propels self to shower room, completing sit to stand at gb with CGA and w/c is replaced with sc; showering with min A due to inability to reach bottom within this new sc. Pt stands with CGA and completes transfer to w/c, completes dressing in w/c with increase of fx ability LB dressing/ sock donning with cued instruction for limb placement. Pt requires increased demonstration for this problem solving/ instructions. Pt propels self to gym, OT/ PT discuss fx transfers from surface to w/c with demonstration/ increased instruction. Pt able to SPT from w/c to EOM with CGA, bring w/c to L side with increased cues, lock, and SPT to strong side with CGA. Pt returns to room/ recliner with all needs met, call light in reach, RUE propped/ blanket on. Education OT Patient Education: Correct positioning, Disease process, Exercise program, Home exercise program, Modified ADL techniques, Progress toward Goal/Update tx plan, Purpose of tx/functional activities, Safety issues, Transfer techniques, W/C management Teaching Recipient: Patient Teaching Methods: Demonstration, Discussion Response to Teaching: Verbalize Understanding, Return Demonstration, Reinforcement Needed OT Short Term Goals Short Term Goals Eatin Oral hygiene: 5 Toileting hygiene: 2 Shower/bathe self: 2 Upper body dressin Lower body dressin Putting on/taking off footwear: 2 OT [place] Goals [facility] Goals Time Frame: Apr 24, 2020 Eating (QC): 6 Oral Hygiene (QC): 6 Toileting Hygiene (QC): 3 Shower/Bathe Self (QC): 3 Upper Body Dressing (QC): 6 Lower Body Dressing (QC): 3 On/Off Footwear (QC): 6 Additional Goals: 1-Demonstrate ADL Tasks, 2-Verbalize Understanding, 3- ImproveStrength/[place] 1=Demonstrate adherence to instructed precautions during ADL tasks. 2=Patient will verbalize/demonstrate understanding of assistive devices/modifications for ADL. 3=Patient will improve strength/tolerance for activity to enable patient to perform ADL's. OT Education/Plan Problem List/Assessment Assessment: Decreased Activ Tolerance, Decreased Safety Aware, Decreased UE Strength, Dependent Transfers, Impaired Bed Mobility, Impaired Coordination, Impaired Funct Balance, Impaired I ADL's, Impaired Self-Care Skills, Restricted Funct UE ROM, Visual-Perceptual Deficit Discharge Recommendations Plan/Recommendations: Continue POC Therapy Discharge Recommendati: 24 Hour Supervision, Post Acute OT Treatment Plan/Plan of Care Treatment,Training & Education: Yes Patient would benefit from OT for education, treatment and training to promote independence in ADL's, mobility, safety and/or upper extremity function for ADL's. Plan of Care: ADL Retraining, Caregiver Training, Concurrent Therapy, Functional Mobility, Group Exercise/Act as Ind, Orthotic Fitting/Training, UE Funct Exercise/Act, UE Neuromus Re-Ed/Coord, Visual/Perceptual Retrain, W/C Management Training Treatment Duration: Apr 24, 2020 Frequency: At least 5 of 7 days/Wk (IRF) Estimated Hrs Per Day: 1.5 hours per day Agreement: Yes Rehab Potential: Fair Time/GCodes Start Time: 07:45 Stop Time: 09:00 Total Time Billed (hr/min): 75 Billed Treatment Time 1, MAN, ADL 3, EX = 75 OT individual tx: [id number] OT/ PT co-treat from [id number]: OT addresses ADLs, UE movement, visual scanning and problem solving while PT addresses LE movement, balance, fx transfers, mobility. FATIMAH KERNS OTR May 08, 2020 12:04
--- NOTE | 2020-05-08 12:52 | Physical Therapy Rehab Re-Cert ---
PT Re-Certification Form Physical Therapy Treatment Plan: Continue Plan of Care Bed Mobility, Education, Functional Activity [place], Functional Strength, Group Therapy, Gait, Safety, Therapeutic Exercise, Transfers Patient performs bed mobility and transfers with min assist, WC propel 150' with SBA, ambulates 20' with a hemiwalker and right knee immobilizer with mod assist. Patient needs to continue physical therapy to maximize functional mobility to reduce care needed. nursing home goals adjusted. Treatment Duration: to 05/22/20 Frequency: At least 5 of 7 days/Wk (IRF) Estimated Hrs Per Day: 1.5 hours per day Patient and/or Family Agrees t: Yes Rehab Potential: Fair PT Short Term Goals Short Term Goals Time Frame: Apr 18, 2020 Roll Left & Right: 3 Sit to lyin Lying to sitting on side of be: 3 Sit to stand: 3 Chair/qms-li-gglti transfer: 3 PT Custodial Goals [place] Goals PT [place] Goals Time Frame: May 02, 2020 Roll Left & Right (QC): 4 Sit to Lying (QC): 4 Lying-Sitting on Side/Bed(QC): 4 Sit to Stand (QC): 3 (Zoya) Chair/Dck-os-Rijhp Xfer(QC): 3 (Zoya) Toilet Transfer (QC): 3 (Zoya) Car Transfer (QC): 3 (Zoya) Does the Patient Walk: No and Walking Goal NOT indicated Walk 10 feet (QC): 88 Walk 50ft with 2 Turns (QC): 88 Walk 150 ft (QC): 88 Walking 10ft on Uneven Surface: 88 1 Step (curb) (QC): 88 4 Steps (QC): 88 12 Steps (QC): 88 Picking up an Object (QC): 88 Wheel 50 feet with 2 turns (QC: 4 Wheel 150 feet: 4 DARRYL BARTLETT PT May 08, 2020 12:52
--- NOTE | 2020-05-08 13:48 | Speech Therapy Rehab Re-Cert ---
Speech Re-Certification Form Therapy Discharge Recommendati: Assisted Living, [facility] (TCU/NH) Speech Therapy Treatment Plan: Continue Plan of Care # of days/week 4-5x per week Visits Per Week: 4-5x Minutes/Day (M-F): 30 Minutes/Day (Sat/Sweeney): 0 Rehab Potential: Fair Barriers to Learning: Patient has had 3 CVA's, Expressive aphasia Patient and/or Family Agrees t: Yes Speech Short Term Goals Short Term Goals Short Term Goals 1) The patient will complete OME for improved speech production at each session with 80% or greater accuracy. 2) The patient will complete word finding tasks with 80% or greater accuracy. 3) The patient will complete expressive language tasks 80% or greater accuracy. 4) The patient will tolerate least restrictive diet level without s/s of aspiration at 80% or greater accuracy. 5) The patient will utilize compensatory strategies as trained 80% or greater accuracy. Speech Funeral Service Manager Goals Funeral Service Manager Goals Patient will improve cognitive-communication abilities for completion of daily needs with minimal assist. Patient will maintain adequate nutrition/hydration via safe effective swallow function. FIDEL WORKMAN May 08, 2020 13:48
--- NOTE | 2020-05-08 14:53 | Occ Therapy Rehab Re-Cert ---
OT Re-Certification Form Plan of Care: ADL Retraining, Caregiver Training, Concurrent Therapy, Functional Mobility, Group Exercise/Act as Ind, Orthotic Fitting/Training, UE Funct Exercise/Act, UE Neuromus Re-Ed/Coord, Visual/Perceptual Retrain, W/C Management Training Covering dates 04/24/20-05/29/20 Pt is increasing in fx abilities in all ADLs, pt to continue toward LTGs as follows (POC updated), extended POC to May 29 (3 weeks): Eating (QC): 6 Oral Hygiene (QC): 6 Toileting Hygiene (QC): 3 Shower/Bathe Self (QC): 5 Upper Body Dressing (QC): 6 Lower Body Dressing (QC): 3 On/Off Footwear (QC): 6 Frequency: At least 5 of 7 days/Wk (IRF) Estimated Hrs Per Day: 1.5 hours per day Agreement: Yes Rehab Potential: Fair OT Short Term Goals Short Term Goals Eatin Oral hygiene: 5 Toileting hygiene: 2 Shower/bathe self: 2 Upper body dressin Lower body dressin Putting on/taking off footwear: 2 OT [facility] Goals [facility] Goals Time Frame: May 29, 2020 Eating (QC): 6 Oral Hygiene (QC): 6 Toileting Hygiene (QC): 3 Shower/Bathe Self (QC): 5 Upper Body Dressing (QC): 6 Lower Body Dressing (QC): 3 On/Off Footwear (QC): 6 Additional Goals: 1-Demonstrate ADL Tasks, 2-Verbalize Understanding, 3- ImproveStrength/[place] 1=Demonstrate adherence to instructed precautions during ADL tasks. 2=Patient will verbalize/demonstrate understanding of assistive devices/modifi cations for ADL. 3=Patient will improve strength/tolerance for activity to enable patient to perform ADL's. FATIMAH KERNS OTR May 08, 2020 14:53
--- NOTE | 2020-05-08 16:48 | NUR ---
CM/SS PATIENT CARE CONFERENCE Discussed with patient's sister/DPOA Anabela Hollis by phone. Patient and Anabela understand the pursuit for an accepting community nursing facility continues and his placement will be as soon as this can be arranged. Pending: Grant Roblero Spoke with Revenue Inspector Josiah Baron. He will speak with his team tomorrow about using a restorative aid under supervision of the PT/OT staff as a means to have patient's therapy interventions continue. Noemi Roblero Spoke with Olga. Financials submitted to [facility] with the request to provide full therapies under a qamar status. She will update commercial insurance underwriter tomorrow. [facility] Will consider acceptance/admission of patient May 10, with the understanding therapy would be "Medicaid Therapy" and at a minimum. All options reviewed with Anabela, will update of final decisions tomorrow in case she needs to make a selection of choice. Informed her of Medicare Compare ratings of above facilities.
[2020-05-08 18:00] VITALS: BP 114/70
--- NOTE | 2020-05-09 05:59 | PM&R Progress Note ---
Subjective HPI/CC On Admission Date Seen by Provider: May 09, 2020 Time Seen by Provider: 10:30 Subjective/Events-last exam 05/09/20: Awaiting NHP maybe tomorrow : No significant change Working pretty well with therapy Expressive aphasia makes it difficult to communicate 05/07/20: Suppository given due to no BM for four days Urinating in the urinal now Butt-paste maintained for skin protection 05/06/20: Pt doing pretty well Awaiting group home placement Labs remain stable Overall doing well 05/05/20: No changes Right sided pain still present Awaiting placement in NH 05/04/20: No major issues BM yesterday no supp used 05/02/20: No major changes More alert today In chair today No BM for several days and refuses suppository 05/01/20: No major changes Refuses suppository Pain on the right side continues Incontinent Sister did family training and felt like he will need to go to a nursing facil ity [facility] was sent a referral 04/30/20: No major changes Laxatives were refused and he is having a BM every other day without the suppository Denies any significant new issues 04/29/20: Patient reports no major issues No pain reported Pain meds are helpful 04/28/20: Periarea red so will start antifungal powder No pain reported otherwise Incontinence will require 24 nursing care along with severe deficit 04/27/2020: Incontinence of both bowel and bladder are limitations Denies any significant new issues Pain is pretty well controlled on the right side for flaccidity muscle spasms 04/26/2020: Patient denies any pain Incontinence requires nursing care 14/12 Pain is pretty well controlled Expressive aphasia makes it difficult to communicate 04/25/20: No major issues Pain controlled Participation with PT 04/24/20: Pt doing pretty well Bowels move after suppository every 48 hrs Decreasing pain medication Decreasing Cozaar due to hypotension per cardiology 04/23/20: BM after suppository every 48hrs Gabapentin BID seems to be working pretty well Using Oxycodone when Gabapentin is not enough No falls 04/22/20: No major issues Expressive aphasia continues Bowels moved yesterday after suppository given every 48 hours 04/21/20: Suppository today and BM Incontinent of B/B Pain improved Does not need to increase Gabapentin 04/20/20: BM yesterday Pain improved Sleepy today Doing better Incontinence : Improve right sided nerve pain Xanax and pain pill helps him BM after suppository Q 48 hours Incontinent of B/B 04/18/20: BM 04/17/20 Eliquis causes blurry vision per sister so will inquire with Dr Gibson regarding Xarelto Incontinent 04/17/20: Bowels not moving so will initiate Dulcolax suppository every 48hrs after laxatives given and he is agreeable for that plan Denies any significant new issues Pain is getting much better with the Gabapentin twice daily and Oxycodone 04/16/20: Right-sided pain still so increased Gabapentin to 300 Mg BID Xanax will help too Oxycodone also helps 04/15/20: Gabapentin maintained Oxycodone maintained Confusion noted? 04/14/20: Monitoring BP Pain right side still present and will increase Gabapentin 04/13/20: Right arm and right leg pain and issue Oxycodone not really helping Nerve pain so will give Gabapentin 04/12/20: Severe pain on right side Oxycodone ordered Participating in therapies well No other pain Pt doing pretty well Expressive aphasia is an issue WBC is 12.4 CMP normal Consulting cardiology Overall doing very well Conferred with RN Checked meds and labs Reviewed therapy notes Objective Exam Vital Signs Vital Signs Date Time Temp Pulse Resp B/P (MAP) Pulse Ox O2 Delivery O2 Flow Rate FiO2 05/09/20 20:15 100 Room Air 05/09/20 17:42 36.4 79 20 115/77 (90) Capillary Refill : Less Than 3 Seconds General Appearance: No Apparent Distress, WD/WN, Chronically ill HEENT: PERRL/EOMI, Normal ENT Inspection, Pharynx Normal Neck: Full Range of Motion, Normal Inspection, Non Tender, Supple, Carotid Bruit Respiratory: Chest Non Tender, Lungs Clear, Normal Breath Sounds, No Accessory Muscle Use, No Respiratory Distress Cardiovascular: Regular Rate, Rhythm, No Edema, No Gallop, No JVD, No Murmur, Normal Peripheral Pulses Gastrointestinal: Normal Bowel Sounds, No Organomegaly, No Pulsatile Mass, Non Tender, Soft Back: Normal Inspection, No CVA Tenderness, No Vertebral Tenderness Extremity: Normal Capillary Refill, Normal Inspection, Normal Range of Motion, Non Tender, No Calf Tenderness, No Pedal Edema Neurologic/Psychiatric: Alert, Normal Mood/Affect, Abnormal Gait, Aphasia, Depressed Affect, Disoriented, Motor Weakness (right sided flaccidity) Skin: Normal Color, Warm/Dry Lymphatic: No Adenopathy Results/Procedures Lab Patient resulted labs reviewed. FIM Transfers Therapy Code Descriptions/Definitions Functional [place] Measure: 0=Not Assessed/NA 4=Minimal Assistance 1=Total Assistance 5=Supervision or Setup 2=Maximal Assistance 6=Modified [place] 3=Moderate Assistance 7=Complete IndependenceSCALE: Activities may be completed with or without assistive devices. 6-Vdvcnbtwmm-qldzllx completes the activity by him/herself with no assistance from a helper. 5-Set-up or Clean-up Assistance-helper sets up or cleans up; patient completes activity. [place] assists only prior to or following the activity. 4-Supervision or Touching Assistance-helper provides verbal cues and/or touching/steadying and/or contact guard assistance as patient completes activity. Assistance may be provided throughout the activity or intermittently. 3-Partial/Moderate Assistance-helper does LESS THAN HALF the effort. [place] lifts, holds or supports trunk or limbs, but provides less than half the effort. 2-Substantial/Maximal Assistance-helper does MORE THAN HALF the effort. [place] lifts or holds trunk or limbs and provides more than half the effort. 3-Dmcbudgqr-yinlas does ALL the effort. Patient does none of the effort to complete the activity. Or, the assistance of 2 or more helpers is required for the patient to complete the activity. If activity was not attempted, code reason: 7-Patient Refused. 9-Not Applicable-not attempted and the patient did not perform the activity before the current illness, exacerbation or injury. 10-Not Attempted due to Environmental Limitations-(lack of equipment, weather restraints, etc.). 88-Not Attempted due to Medical Conditions or Safety Concerns. Roll Left to Right (QC): 6 Sit to Lying (QC): 6 Sit to Stand (QC): 4 Chair/Jac-tn-Pyjzl Xfer(QC): 4 Car Transfer (QC): 3 Gait Training Does the Patient Walk?: Yes Distance: 20'x3 Walk 10 feet (QC): 3 Walk 50 ft with 2 Turns(QC): 88 Walk 150 ft (QC): 88 Walking 10ft/uneven surface-QC: 88 Gait Persons Needed: 1 Gait Assistive Device: Walker Jose Wheelchair Training Does the Pt Use a Wheelchair?: Yes Wheel 50 ft with 2 turns (QC): 6 Wheel 150 ft (QC): 6 Type of Wheelchair: Manual Stair Training 1 Step (curb) (QC): 88 4 Steps (QC): 88 12 Steps (QC): 88 Balance Picking up an Object (QC): 88 ADL-Treatment Eating (QC): 6 Oral Hygiene (QC): 6 (completes up in w/c. ) Bathing Location: L Arm, R Arm, L Upper Leg, R Upper Leg, L Lower Leg (including foot), R Lower Leg (including foot), Chest, Abdomen, Buttocks, Perineal Area Shower/Bathe Self (QC): 3 (min A bottom ) Upper Body Dressing (QC): 3 (min A) Lower Body Dressing (QC): 1 (TD due to need of 2 people (CGA PT in stance and OT pulls over hips). 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 Defib in place Cardiomyopathy HTN Plan: Monitor dysphagia Cardiology consultation IRF protocol 04/11/20: Monitor BP Appreciate Cardiology 04/12/20: Monitor closely Pain management 04/13/20: Gabapentin Oxycodone 04/14/20: Increase Gabapentin Oxycodone BM regimen to increase today may need supp 04/15/20: BM++ Monitor pain of right side 04/16/20: Increase dose of Neurontin Maintain aggressive rehab 04/17/20: BM regimen to include supp Q48 hrs Monitor pain Monitor BP 04/18/20: Increased Gabpentin some more today BM regimen 04/19/20: Manage incontinence Right arm and right leg pain management 04/20/20: Maintain pain control Incontinence management BM regimen 04/21/20: Suppository [id number] Monitor closely Pain control 04/22/20: Continue BM regimen Monitor right sided pain 04/23/20: BM regimen PT OT Incontinence care 04/24/20: Monitor BP Fall risk BM regimen 04/25/20: No med changes Pain controlled 04/26/2020: Pain management Bowel regimen with suppository every 48 hours Continue intensive therapy 04/27/2020: Aggressive therapy Incontinence care Pain control 04/28/20: Monitor closely Periarea powder Monitor pain Check labs in am 04/29/20: Labs reviewed Monitor pain issues 04/30/20: Continue therapy Needs dispo 05/01/20: DC to NH at DC Monitor closely Pain continues and difficult to ascertain due to expressive aphasia 05/02/20: Pain control Incontinence care Needs NH placement 05/04/20: Monitor BM Needs NH 05/05/20: Incontinence care 05/06/20: Await NHP Labs normal 05/07/20: DC to NH once accepted 05/08/20: Monitor closely 05/09/20: Monitor pain NHP (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
[2020-05-09 06:00] VITALS: BP 97/67
[2020-05-09 09:21] VITALS: BP 98/71
[2020-05-09] MEDS: SENNA W/DOCUSATE (SENOKOT S) TABLET PO SCH ×2 (09:25→21:53)
[2020-05-09] MEDS: ASPIRIN 81 MG CHEW (CHILDREN'S ASA) PO SCH (09:26)
[2020-05-09] MEDS: APIXABAN 5 MG (ELIQUIS) TABLET PO SCH ×2 (09:26→21:53)
[2020-05-09] MEDS: DOCUSATE SODIUM 100 MG (COLACE) CAP PO SCH ×2 (09:26→21:54)
[2020-05-09] MEDS: polyethylene glycoL POWDER 17 GM (MIRALAX) PACK PO SCH ×2 (09:26→21:55)
[2020-05-09] MEDS: GABAPENTIN 400 MG (NEURONTIN) CAP PO SCH ×2 (09:26→21:53)
[2020-05-09] MEDS: MICONAZOLE 2% POWDER (DESENEX AF) 90 GM TOP SCH ×2 (09:27→21:54)
[2020-05-09] MEDS: DICLOFENAC 1% GEL 100 GM (VOLTAREN) TUBE TOP SCH ×4 (09:27→21:54)
[2020-05-09] MEDS: ACETAMINOPHEN 325 MG TABLET PO PRN (09:29)
--- NOTE | 2020-05-09 11:03 | Speech Therapy Daily Note ---
Speech Daily Progress Note Subjective Date Seen by Provider: May 09, 2020 Time Seen by Provider: 00:30 Patient was resting in his bed watching television when I entered his room. Objective Patient demonstrated safe oral intake with nectar consistency Sprite with small sips as trained at 95% with no cues. Patient also completed a series of baseball trivia with 40% accuracy with maximum cues. Assessment Assessment Current Status: Fair Progress Treatment Plan Continue Plan of Care Speech Short Term Goals Short Term Goals Short Term Goals 1) The patient will complete OME for improved speech production at each session with 80% or greater accuracy. 2) The patient will complete word finding tasks with 80% or greater accuracy. 3) The patient will complete expressive language tasks 80% or greater accuracy. 4) The patient will tolerate least restrictive diet level without s/s of aspiration at 80% or greater accuracy. 5) The patient will utilize compensatory strategies as trained 80% or greater accuracy. Speech Assisted Goals Solar Pool Heating Installer Goals Patient will improve cognitive-communication abilities for completion of daily needs with minimal assist. Patient will maintain adequate nutrition/hydration via safe effective swallow function. Speech-Plan Patient/Family Goals Patient/Family Goals: Patient will be going to SNF when admission is in order. Treatment Plan Speech Therapy Treatment Plan: Continue Plan of Care Treatment Duration: May 15, 2020 Frequency: 4 times per week (Patient will receive skilled ST 4-5x per week) Estimated Hrs Per Day: .5 hour per day Rehab Potential: Fair Barriers to Learning: Patient's aphasia, decreased ability to follow directions, decreased naming objects Pt/Family Agrees to Plan: Yes Safety Risks/Education Teaching Recipient: Patient Teaching Methods: Demonstration, Discussion Response to Teaching: Verbalize Understanding, Return Demonstration Education Topics Provided: Continued safety within his room and continued safety with oral intake. Time Speech Therapy Time In: 09:30 Speech Therapy Time Out: 10:00 Total Billed Time: 30 Billed Treatment Time 1, SLDECLAN, FIDEL Najera May 09, 2020 11:03
[2020-05-09 11:32] VITALS: BP 110/70
[2020-05-09] MEDS: BISOPROLOL 5 MG TAB (ZEBETA) PO SCH (11:35)
[2020-05-09] MEDS: SPIRONOLACTONE 25 MG (ALDACTONE) TAB PO SCH (11:35)
--- NOTE | 2020-05-09 11:37 | NUR ---
B/P MEDS PROVIDED AT THIS TIME, D/T B/P INCREASED AFTER WORKING W THERAPIES
--- NOTE | 2020-05-09 12:23 | Physical Therapy Daily Note ---
PT Daily Note-Current Subjective Pt sitting in recliner upon arrival. Pt agrees to PT for QC scoring for anticipated DC tomorrow (05/10). Pain Location: No Pain Reported Mental Status Patient Orientation: Person, Place, Situation Transfers SCALE: Activities may be completed with or without assistive devices. 0-Ituuelxtdk-padqwgh completes the activity by him/herself with no assistance from a helper. 5-Set-up or Clean-up Assistance-helper sets up or cleans up; patient completes activity. [place] assists only prior to or following the activity. 4-Supervision or Touching Assistance-helper provides verbal cues and/or touching/steadying and/or contact guard assistance as patient completes activity. Assistance may be provided throughout the activity or intermittently. 3-Partial/Moderate Assistance-helper does LESS THAN HALF the effort. [place] lifts, holds or supports trunk or limbs, but provides less than half the effort. 2-Substantial/Maximal Assistance-helper does MORE THAN HALF the effort. [place] lifts or holds trunk or limbs and provides more than half the effort. 3-Nisrijfjk-wdfzfa does ALL the effort. Patient does none of the effort to complete the activity. Or, the assistance of 2 or more helpers is required for the patient to complete the activity. If activity was not attempted, code reason: 7-Patient Refused. 9-Not Applicable-not attempted and the patient did not perform the activity before the current illness, exacerbation or injury. 10-Not Attempted due to Environmental Limitations-(lack of equipment, weather restraints, etc.). 88-Not Attempted due to Medical Conditions or Safety Concerns. Roll Left & Right (QC): 5 Sit to Lying (QC): 5 Lying to Sitting/Side of Bed(Q: 5 Sit to Stand (QC): 4 Chair/Zqs-pu-Micqd Xfer(QC): 4 Toilet Transfer (QC): 4 Car Transfer (QC): 4 Pt uses railing to assist into bed and rolling. Weight Bearing Full Weight Bearing Full Weight Bearing Gait Training Does the Patient Walk?: No and Walking Goal NOT indicated Walk 10 feet (QC): 9 Walk 50 ft with 2 Turns(QC): 9 Walk 150 ft (QC): 9 Walking 10ft/uneven surface-QC: 9 Wheelchair Training Does the Pt Use a Wheelchair?: Yes Wheel 50 ft with 2 turns (QC): 5 Wheel 150 ft (QC): 5 Type of Wheelchair: Manual Stair Training 1 Step (curb) (QC): 9 4 Steps (QC): 9 12 Steps (QC): 9 Balance Picking up an Object (QC): 88 Special Test Comments Pt is not safe to stand and molded goods spot picker objects due to balance at this time. Exercises Seated Therapy Exercises: Ankle pumps, Long arc quads, Hip flexion, Kicking activity Seated Reps: 20 Treatments Morning tx ([id number]): Completes QC scoring items except bed mobility and will complete in afternoon tx. TF to [facility] and propels in hallway. Completes Seated Ex before returning to room. TF to recliner & positioned to comfort. All needs met, call light in hand. After noon tx ([phone]): Pt asked to transfer back to bed as pt is fatigued. TF to EOB then to Supine and completes bed mobility. Pt is repositioned to comfort. All needs met, call light in hand. Assessment Current Status: Good Progress Pt has improved with strength and transfers as well as mobility but pt is still needing assistance both VC & TC due to lack of use of R UE. PT Short Term Goals Short Term Goals Time Frame: Apr 18, 2020 Roll Left & Right: 3 Sit to lyin Lying to sitting on side of be: 3 Sit to stand: 3 Chair/ejj-py-dvmki transfer: 3 PT Director Of Medical Education Goals Residential Goals PT Director Of Medical Education Goals Time Frame: May 02, 2020 Roll Left & Right (QC): 4 Sit to Lying (QC): 4 Lying-Sitting on Side/Bed(QC): 4 Sit to Stand (QC): 3 (Zoya) Chair/Rip-ob-Zscsd Xfer(QC): 3 (Zoya) Toilet Transfer (QC): 3 (Zoya) Car Transfer (QC): 3 (Zoya) Does the Patient Walk: No and Walking Goal NOT indicated Walk 10 feet (QC): 88 Walk 50ft with 2 Turns (QC): 88 Walk 150 ft (QC): 88 Walking 10ft on Uneven Surface: 88 1 Step (curb) (QC): 88 4 Steps (QC): 88 12 Steps (QC): 88 Picking up an Object (QC): 88 Wheel 50 feet with 2 turns (QC: 4 Wheel 150 feet: 4 PT Plan Problem List Problem List: Activity Tolerance, Functional Strength, Safety, Balance, Gait Treatment/Plan Treatment Plan: Continue Plan of Care Treatment Plan: Bed Mobility, Education, Functional Activity [place], Functional Strength, Group Therapy, Gait, Safety, Therapeutic Exercise, Transfers Treatment Duration: May 01, 2020 Frequency: At least 5 of 7 days/Wk (IRF) Estimated Hrs Per Day: 1.5 hours per day Patient and/or Family Agrees t: Yes Safety Risks/Education Patient Education: Transfer Techniques, Correct Positioning, W/C Management, Safety Issues Teaching Recipient: Patient Teaching Methods: Discussion Response to Teaching: Reinforcement Needed Time/GCodes Time In: 1130 Time Out: 1215 Total Billed Treatment Time: 45 Total Billed Treatment Morning tx: 1, FA (15m), WCH (15m) & EX (15m) Afternoon tx: 1, FA x2 (30m) CATALINO CAMPBELL PTA May 09, 2020 12:23
--- NOTE | 2020-05-09 12:44 | NUR ---
"RD ASSESSMENT PMHx: afib; HTN; stroke; PT INTERACTION: Pt was awake and pleasant during nutrition follow-up. Pt states he has been eating well since last assessment. Note avg PO intake 100% x4d, per chart review. Pt states no issues with nausea, vomiting, constipation, or diarrhea since last assessment. Note last BM was 05/07, and pt currently on bowel regimen of colace BID, senna BID, and miralax BID, per chart review. ABNORMAL NUTRITION-RELATED LAB VALUES LOW: Pro 6.1; HIGH: AST 38; ALT 75 Est. kcal needs: 3757-8269 kcal | 20-25 kcal/kg Est. Pro needs: 62-78 g Pro | 0.8-1.0 g Pro/kg PES STATEMENT: Given current appetite and PO intake, no nutrition diagnosis at this time (NO-1.1). INTERVENTION: Continue with current diet order of DYS2 Mechanically Altered diet, with modifier of [place] Thick Liquids. Will continue to follow and reassess as pt needs, intake, and status change. Shivani HUI, MS RD LD [phone] cell"
--- NOTE | 2020-05-09 14:33 | Occupational Ther Daily Note ---
OT Current Status-Daily Note Subjective No pain reported. Appearance Pt. in bed. Agrees to work with OT. Mental Status/Objective Patient Orientation: Person ADL-Treatment Therapy Code Descriptions/Definitions Functional [place] Measure: 0=Not Assessed/NA 4=Minimal Assistance 1=Total Assistance 5=Supervision or Setup 2=Maximal Assistance 6=Modified [place] 3=Moderate Assistance 7=Complete IndependenceSCALE: Activities may be completed with or without assistive devices. 3-Dbryhmqmbs-rhpruku completes the activity by him/herself with no assistance from a helper. 5-Set-up or Clean-up Assistance-helper sets up or cleans up; patient completes activity. [place] assists only prior to or following the activity. 4-Supervision or Touching Assistance-helper provides verbal cues and/or touching/steadying and/or contact guard assistance as patient completes activity. Assistance may be provided throughout the activity or intermittently. 3-Partial/Moderate Assistance-helper does LESS THAN HALF the effort. [place] lifts, holds or supports trunk or limbs, but provides less than half the effort. 2-Substantial/Maximal Assistance-helper does MORE THAN HALF the effort. [place] lifts or holds trunk or limbs and provides more than half the effort. 1-Urbtpsroc-ftdbte does ALL the effort. Patient does none of the effort to complete the activity. Or, the assistance of 2 or more helpers is required for the patient to complete the activity. If activity was not attempted, code reason: 7-Patient Refused. 9-Not Applicable-not attempted and the patient did not perform the activity before the current illness, exacerbation or injury. 10-Not Attempted due to Environmental Limitations-(lack of equipment, weather restraints, etc.). 88-Not Attempted due to Medical Conditions or Safety Concerns. Eating (QC): 5 (per nursing.) Oral Hygiene (QC): 4 (SBA seated at wheelchair at sink. Pt. requires assistance to put paste on brush, and cues to stop the tasks, as he perseverates and continues brushing over and over.) Shower/Bathe Self (QC): 3 (Min assist per OT yesterday for bottom cleaning.) Upper Body Dressing (QC): 3 (Mod assist to don shirt.) Lower Body Dressing (QC): 1 (Max assist to don over feet. Pt. able to puller through thighs. Assist of one person to stand and another person to don shorts over bottom.) On/Off Footwear: 3 (pt. requires assistance to don sock and shoe on right foot. Pt. able to don sock and shoe on left foot.) Toileting Hygiene (QC): 88 (Pt. did not have to toilet.) Toilet Transfer (QC): 88 Other Treatment Pt. agreed to work with OT. Transferred supine-sit with min assist. Pt. transferred from bed-chair with min assist. Pt. donned clothing from chair position, and then requests to shave at sink. Pt. able to propel self to sink, and requires min assist overall to shave. He is able to put shave foam all over, and is able to shave all parts. However, he is unaware of missed areas that are large, and so OT assists with this. Pt. propels wheelchair to therapy gym with CGA at times for re-direction when veering to right. Pt. participates in medication activity, in which he has to follow the verbalized instructions on side of pill bottle, and put pills in correct location of weekly pill box. Pt. requires min/mod cues at times, as he will place too many pills in a day, or he will not follow the instructions correctly. Pt. propels back to room, and transfers to reclining chair with min assist. All needs met. Education OT Patient Education: Correct positioning, Modified ADL techniques, Progress toward Goal/Update tx plan, Purpose of tx/functional activities, Reviewed precautions, Rehab process, Transfer techniques Teaching Recipient: Patient Teaching Methods: Demonstration, Discussion Response to Teaching: Verbalize Understanding, Return Demonstration OT Short Term Goals Short Term Goals Eatin Oral hygiene: 5 Toileting hygiene: 2 Shower/bathe self: 2 Upper body dressin Lower body dressin Putting on/taking off footwear: 2 OT Material Reprocessing Associate Goals Material Reprocessing Associate Goals Time Frame: May 29, 2020 Eating (QC): 6 Oral Hygiene (QC): 6 Toileting Hygiene (QC): 3 Shower/Bathe Self (QC): 5 Upper Body Dressing (QC): 6 Lower Body Dressing (QC): 3 On/Off Footwear (QC): 6 Additional Goals: 1-Demonstrate ADL Tasks, 2-Verbalize Understanding, 3- ImproveStrength/[place] 1=Demonstrate adherence to instructed precautions during ADL tasks. 2=Patient will verbalize/demonstrate understanding of assistive devices/mod ifications for ADL. 3=Patient will improve strength/tolerance for activity to enable patient to perform ADL's. OT Education/Plan Problem List/Assessment Assessment: Decreased Activ Tolerance, Decreased UE Strength, Dependent Transfers, Impaired Bed Mobility, Impaired Cognition, Impaired Coordination, Impaired Funct Balance, Impaired I ADL's, Impaired Self-Care Skills, Restricted Funct UE ROM, Visual-Perceptual Deficit Discharge Recommendations Plan/Recommendations: Continue POC Therapy Discharge Recommendati: 24 Hour Supervision, Post Acute OT Treatment Plan/Plan of Care Treatment,Training & Education: Yes Patient would benefit from OT for education, treatment and training to promote independence in ADL's, mobility, safety and/or upper extremity function for ADL's. Plan of Care: ADL Retraining, Caregiver Training, Concurrent Therapy, Functional Mobility, Group Exercise/Act as Ind, Orthotic Fitting/Training, UE Funct Exercise/Act, UE Neuromus Re-Ed/Coord, Visual/Perceptual Retrain, W/C Management Training Treatment Duration: Apr 24, 2020 Frequency: At least 5 of 7 days/Wk (IRF) Estimated Hrs Per Day: 1.5 hours per day Agreement: Yes Rehab Potential: Fair Time/GCodes Start Time: 10:05 Stop Time: 11:20 Total Time Billed (hr/min): 75 Billed Treatment Time 1, ADL x 5 SEDA MEDEL OT May 09, 2020 14:33
--- NOTE | 2020-05-09 17:05 | NUR ---
CM/SS DISCHARGE PLANNING Continued discharge planning for a community nursing facility placement. Noemi Roblero had to decline, corporate would not approve provision of therapy without reimbursement. Grant Roblero is now patient and DPOA/Sister/Anabela choice facility. Admin Josiah Baron stated they tentatively accept patient if they are able to finalize a therapy care plan for PT/OT/ST. Josiah submitted to [facility] for funds to provide therapy, he plans to utilize restorative aid staff under therapist guidance if needed. He is adamant patient should have Speech Therapy as well and continues to work on this via virtual visits/sessions approval. Updated patient and Anabela completely. Grant/Josiah to confirm final plan tomorrow. If by some chance this does not work out, will pursue [facility]. Acid Pump Operator will complete CARE Assessment because of Medicaid funding relative to reimbursement to SNF.
[2020-05-09 17:42] VITALS: BP 115/77
--- NOTE | 2020-05-09 21:15 | NUR ---
CALL PLACED TO [employer] AT [phone], REQUESTED. THEY WILL SEND OUT NEW DEVICE FOR PT TO HIS SISTER'S ADDRESS RECOMMENDED BY MAKEUP SALES ADVISOR. STATE THAT THE DEVICE SHOULD ARRIVE NEXT WEDNESDAY, AT THE LATEST WEDNESDAY, IF NOT, SISTER, OR HALF-WAY CAN CALL THEIR NUMBER.
[2020-05-10] MEDS ORDERED: MICO90PO TOP (05:51)
[2020-05-10] MEDS ORDERED: DICL100G18 TOP (05:51)
[2020-05-10] MEDS ORDERED: APIX5TAB PO (05:51)
[2020-05-10] MEDS ORDERED: SPIR25TA5 PO (05:51)
[2020-05-10] MEDS ORDERED: LACT20SO2 PO (05:51)
[2020-05-10] MEDS ORDERED: ZINC28PA TOP (05:51)
[2020-05-10] MEDS ORDERED: ASPI-999 PO (05:51)
[2020-05-10] MEDS ORDERED: OXC5T PO (05:51)
[2020-05-10] MEDS ORDERED: BISA10SU8 PR (05:51)
[2020-05-10] MEDS ORDERED: ALPR.25T PO (05:51)
[2020-05-10] MEDS ORDERED: NF-BISOP5 PO (05:51)
[2020-05-10] MEDS ORDERED: ATOR40TA PO (05:51)
[2020-05-10] MEDS ORDERED: SENN-20 PO (05:51)
[2020-05-10] MEDS ORDERED: GABA-490 PO (05:51)
--- NOTE | 2020-05-10 05:52 | Discharge Inst-Skilled Nursing ---
Discharge Inst-Skilled NF Reconcile Patient Problems Problems Reviewed?: Yes Patient Instructions Patient Problems: CVA Consult/Follow Up/Orders Follow Up Appt.: NH rounds Skilled NF Admit to: Certification (SNF) I certify that SNF services are required to be given on an inpatient basis because of the above named patient's need for correction care on a continuing basis for the conditions(s) for which he/she was receiving inpatient hospital services prior to his/her transfer to the SNF. Fdc Facility Order: Nursing Services, Bottoming Room Inspector-Evaluate & Treat, Physical Therapy-Evaluate & Treat, Speech Language-Evaluate & Treat Oxygen Delivery Method: Room Air Discharge Diet: No Restrictions Daily Activity as Tolerated: Yes Resuscitation Status: Full Code New & Resume Previous Orders New Medications: ALPRAZolam (Xanax Tablet) 0.25 Mg Tab 0.25 MG PO Q8H PRN for ANXIETY, #30 TAB Apixaban (Eliquis) 5 Mg Tablet 5 MG PO BID, #60 TAB Aspirin (Aspirin) 81 Mg Tab.chew 81 MG PO DAILY, #30 TAB Atorvastatin Calcium (Lipitor) 40 Mg Tablet 40 MG PO HS, #30 TAB Bisacodyl (Bisacodyl) 10 Mg Supp.rect 10 MG SD Q48H PRN for CONSTIPATION-3RD LINE, #30 SUPP.RECT Bisoprolol Fumarate (Bisoprolol Fumarate) 5 Mg Tablet 5 MG PO DAILY, #30 TAB Diclofenac Sodium (Voltaren) 100 Gm Gel..gram. 0 GM TOP QID, #1 TUBE Gabapentin (Gabapentin) 400 Mg Capsule 400 MG PO BID, #60 CAP Lactulose (Lactulose) 20 Gm/30 Ml Solution 10 GM PO BID PRN for CONSTIPATION-2ND LINE, #8 OZ Miconazole Nitrate (Lotrimin AF) 90 Gm Powder 0 GM TOP BID, #1 EA Oxycodone Hcl (Oxyir Tablet) 5 Mg Tab 5 MG PO Q4H PRN for PAIN-SEVERE (8-10), #30 TAB Sennosides/Docusate Sodium (Senna-Time S Tablet) 1 Each Tablet 1 EA PO BID, #30 TAB Spironolactone (Spironolactone) 25 Mg Tablet 25 MG PO DAILY, #30 TAB Zinc Oxide (Boudreauxs) 28 Gm Oint 0 GM TOP NEEDED PRN for DIAPER CHANGE, #1 TUBE Discontinued Medications: Amlodipine Besylate (Amlodipine Besylate) 10 Mg Tablet 10 MG PO DAILY, TAB Carvedilol (Coreg) 25 Mg Tab 50 MG PO BID, TAB TAKES 2 (25MG) TABS Diltiazem HCl (Cardizem Cd) 240 Mg Cap.er.24h 240 MG PO DAILY, CAP Flecainide Acetate (Flecainide Acetate) 50 Mg Tablet 50 MG PO, TAB Hydralazine HCl (Hydralazine HCl) 100 Mg Tablet 100 MG PO TID, TAB Rivaroxaban (Xarelto) 10 Mg Tablet 10 MG PO DAILY, TAB Estella Onofre May 10, 2020 05:52 ESTELLA ONOFRE DO May 10, 2020 05:52
--- NOTE | 2020-05-10 05:52 | Discharge Summary ---
Diagnosis/Chief Complaint Date of Admission Apr 10, 2020 at 14:20 Date of Discharge Discharge Date: May 10, 2020 Discharge Summary Discharge Physical Examination Allergies: Coded Allergies: No Known Drug Allergies (Unverified , 02/25/15) Vitals & I&Os Vital Signs Date Time Temp Pulse Resp B/P (MAP) Pulse Ox O2 Delivery O2 Flow Rate FiO2 05/11/20 05:28 35.9 81 16 107/68 (81) 97 Room Air Hospital Course Labs (last 24 hrs) Laboratory Tests 04/11/20 04:35: White Blood Count 13.4H, Red Blood Count 5.08, Hemoglobin 15.0, Hematocrit 46, Mean Corpuscular Volume 91, Mean Corpuscular Hemoglobin 30, Mean Corpuscular Hemoglobin Concent 33, Red Cell Distribution Width 12.9, Platelet Count 327, Mean Platelet Volume 11.5, Immature Granulocyte % (Auto) 1, Neutrophils (%) (Auto) 67, Lymphocytes (%) (Auto) 16, Monocytes (%) (Auto) 14H, Eosinophils (%) (Auto) 2, Basophils (%) (Auto) 0, Neutrophils # (Auto) 9.0H, Lymphocytes # (Auto) 2.1, Monocytes # (Auto) 1.8H, Eosinophils # (Auto) 0.3, Basophils # (Auto) 0.1, Immature Granulocyte # (Auto) 0.2H, Sodium Level 137, Potassium Level 4.2, Chloride Level 106, Carbon Dioxide Level 21, Anion Gap 10, Blood Urea Nitrogen 19H, Creatinine 0.81, Estimat Glomerular Filtration Rate > 60, BUN/Creatinine Ratio 23, Glucose Level 95, Calcium Level 8.7, Corrected Calcium 9.3, Total Bilirubin 0.5, Aspartate Amino Transf (AST/SGOT) 110H, Alanine Aminotransferase (ALT/SGPT) 150H, Alkaline Phosphatase 125, Total Protein 6.3L, Albumin 3.2 04/15/20 05:57: White Blood Count 9.5, Red Blood Count 5.13, Hemoglobin 14.9, Hematocrit 46, Mean Corpuscular Volume 90, Mean Corpuscular Hemoglobin 29, Mean Corpuscular Hemoglobin Concent 32, Red Cell Distribution Width 13.0, Platelet Count 292, Mean Platelet Volume 11.9, Immature Granulocyte % (Auto) 1, Neutrophils (%) (Auto) 62, Lymphocytes (%) (Auto) 24, Monocytes (%) (Auto) 10, Eosinophils (%) (Auto) 2, Basophils (%) (Auto) 1, Neutrophils # (Auto) 5.9, Lymphocytes # (Auto) 2.3, Monocytes # (Auto) 1.0, Eosinophils # (Auto) 0.2, Basophils # (Auto) 0.1, Immature Granulocyte # (Auto) 0.1, Sodium Level 135, Potassium Level 4.7, Chloride Level 100, Carbon Dioxide Level 25, Anion Gap 10, Blood Urea Nitrogen 21H, Creatinine 0.96, Estimat Glomerular Filtration Rate > 60, BUN/Creatinine Ratio 22, Glucose Level 80, Calcium Level 8.7, Corrected Calcium 9.3, Total Bilirubin 0.5, Aspartate Amino Transf (AST/SGOT) 64H, Alanine Aminotransferase (ALT/SGPT) 93H, Alkaline Phosphatase 121, Total Protein 6.5, Albumin 3.3 04/22/20 05:30: White Blood Count 7.7, Red Blood Count 5.36, Hemoglobin 15.8, Hematocrit 48, Mean Corpuscular Volume 90, Mean Corpuscular Hemoglobin 30, Mean Corpuscular Hemoglobin Concent 33, Red Cell Distribution Width 13.2, Platelet Count 239, Mean Platelet Volume 11.5, Immature Granulocyte % (Auto) 0, Neutrophils (%) (Auto) 59, Lymphocytes (%) (Auto) 26, Monocytes (%) (Auto) 11, Eosinophils (%) (Auto) 3, Basophils (%) (Auto) 0, Neutrophils # (Auto) 4.6, Lymphocytes # (Auto) 2.0, Monocytes # (Auto) 0.8, Eosinophils # (Auto) 0.2, Basophils # (Auto) 0.0, Immature Granulocyte # (Auto) 0.0, Sodium Level 140, Potassium Level 4.5, Chloride Level 105, Carbon Dioxide Level 25, Anion Gap 10, Blood Urea Nitrogen 17, Creatinine 0.90, Estimat Glomerular Filtration Rate > 60, BUN/Creatinine Ratio 19, Glucose Level 89, Calcium Level 9.3, Corrected Calcium 9.8, Total Bilirubin 0.5, Aspartate Amino Transf (AST/SGOT) 61H, Alanine Aminotransferase (ALT/SGPT) 97H, Alkaline Phosphatase 134, Total Protein 6.7, Albumin 3.4 04/26/20 07:15: White Blood Count 7.5, Red Blood Count 5.51, Hemoglobin 16.4, Hematocrit 50, Mean Corpuscular Volume 91, Mean Corpuscular Hemoglobin 30, Mean Corpuscular Hemoglobin Concent 33, Red Cell Distribution Width 13.3, Platelet Count 190, Mean Platelet Volume 11.5, Sodium Level 139, Potassium Level 4.0, Chloride Level 105, Carbon Dioxide Level 24, Anion Gap 10, Blood Urea Nitrogen 15, Creatinine 0.93, Estimat Glomerular Filtration Rate > 60, BUN/Creatinine Ratio 16, Glucose Level 110H, Calcium Level 9.7, Corrected Calcium 9.9, Total Bilirubin 0.6, Aspartate Amino Transf (AST/SGOT) 58H, Alanine Aminotransferase (ALT/SGPT) 101H, Alkaline Phosphatase 142H, Total Protein 7.5, Albumin 3.8, Lactic Acid Level 1.33 04/29/20 06:10: White Blood Count 7.8, Red Blood Count 5.43, Hemoglobin 15.6, Hematocrit 49, Mean Corpuscular Volume 91, Mean Corpuscular Hemoglobin 29, Mean Corpuscular Hemoglobin Concent 32, Red Cell Distribution Width 13.4, Platelet Count 168, Mean Platelet Volume 11.8, Immature Granulocyte % (Auto) 0, Neutrophils (%) (Auto) 58, Lymphocytes (%) (Auto) 27, Monocytes (%) (Auto) 11, Eosinophils (%) (Auto) 4, Basophils (%) (Auto) 0, Neutrophils # (Auto) 4.5, Lymphocytes # (Auto) 2.1, Monocytes # (Auto) 0.8, Eosinophils # (Auto) 0.3, Basophils # (Auto) 0.0, Immature Granulocyte # (Auto) 0.0, Sodium Level 142, Potassium Level 4.4, Chloride Level 107, Carbon Dioxide Level 24, Anion Gap 11, Blood Urea Nitrogen 18, Creatinine 0.96, Estimat Glomerular Filtration Rate > 60, BUN/Creatinine Ratio 19, Glucose Level 84, Calcium Level 8.7, Corrected Calcium 9.1, Total Bilirubin 0.5, Aspartate Amino Transf (AST/SGOT) 77H, Alanine Aminotransferase (ALT/SGPT) 141H, Alkaline Phosphatase 131, Total Protein 6.3L, Albumin 3.5 05/06/20 05:22: White Blood Count 7.0, Red Blood Count 5.07, Hemoglobin 14.6, Hematocrit 46, Mean Corpuscular Volume 91, Mean Corpuscular Hemoglobin 29, Mean Corpuscular Hemoglobin Concent 32, Red Cell Distribution Width 13.8, Platelet Count 151, Mean Platelet Volume 12.0, Immature Granulocyte % (Auto) 1, Neutrophils (%) (Auto) 55, Lymphocytes (%) (Auto) 29, Monocytes (%) (Auto) 12, Eosinophils (%) (Auto) 3, Basophils (%) (Auto) 0, Neutrophils # (Auto) 3.9, Lymphocytes # (Auto) 2.0, Monocytes # (Auto) 0.9, Eosinophils # (Auto) 0.2, Basophils # (Auto) 0.0, Immature Granulocyte # (Auto) 0.1, Sodium Level 141, Potassium Level 4.9, Chloride Level 105, Carbon Dioxide Level 28, Anion Gap 8, Blood Urea Nitrogen 17, Creatinine 1.14, Estimat Glomerular Filtration Rate > 60, BUN/Creatinine Ratio 15, Glucose Level 89, Calcium Level 8.9, Corrected Calcium 9.5, Total Bilirubin 0.4, Aspartate Amino Transf (AST/SGOT) 38H, Alanine Aminotransferase (ALT/SGPT) 75H, Alkaline Phosphatase 108, Total Protein 6.1L, Albumin 3.3 05/10/20 06:00: Coronavirus 2019 ([facility]) Negative Pending Labs Laboratory Tests 04/11/20 04:35: White Blood Count 13.4, Red Blood Count 5.08, Hemoglobin 15.0, Hematocrit 46, Mean Corpuscular Volume 91, Mean Corpuscular Hemoglobin 30, Mean Corpuscular Hemoglobin Concent 33, Red Cell Distribution Width 12.9, Platelet Count 327, Mean Platelet Volume 11.5, Immature Granulocyte % (Auto) 1, Neutrophils (%) (Auto) 67, Lymphocytes (%) (Auto) 16, Monocytes (%) (Auto) 14, Eosinophils (%) (Auto) 2, Basophils (%) (Auto) 0, Neutrophils # (Auto) 9.0, Lymphocytes # (Auto) 2.1, Monocytes # (Auto) 1.8, Eosinophils # (Auto) 0.3, Basophils # (Auto) 0.1, Immature Granulocyte # (Auto) 0.2, Sodium Level 137, Potassium Level 4.2, Chloride Level 106, Carbon Dioxide Level 21, Anion Gap 10, Blood Urea Nitrogen 19, Creatinine 0.81, Estimat Glomerular Filtration Rate > 60, BUN/Creatinine Ratio 23, Glucose Level 95, Calcium Level 8.7, Corrected Calcium 9.3, Total Bilirubin 0.5, Aspartate Amino Transf (AST/SGOT) 110, Alanine Aminotransferase (ALT/SGPT) 150, Alkaline Phosphatase 125, Total Protein 6.3, Albumin 3.2 04/15/20 05:57: White Blood Count 9.5, Red Blood Count 5.13, Hemoglobin 14.9, Hematocrit 46, Mean Corpuscular Volume 90, Mean Corpuscular Hemoglobin 29, Mean Corpuscular Hemoglobin Concent 32, Red Cell Distribution Width 13.0, Platelet Count 292, Mean Platelet Volume 11.9, Immature Granulocyte % (Auto) 1, Neutrophils (%) (Auto) 62, Lymphocytes (%) (Auto) 24, Monocytes (%) (Auto) 10, Eosinophils (%) (Auto) 2, Basophils (%) (Auto) 1, Neutrophils # (Auto) 5.9, Lymphocytes # (Auto) 2.3, Monocytes # (Auto) 1.0, Eosinophils # (Auto) 0.2, Basophils # (Auto) 0.1, Immature Granulocyte # (Auto) 0.1, Sodium Level 135, Potassium Level 4.7, Chloride Level 100, Carbon Dioxide Level 25, Anion Gap 10, Blood Urea Nitrogen 21, Creatinine 0.96, Estimat Glomerular Filtration Rate > 60, BUN/Creatinine Ratio 22, Glucose Level 80, Calcium Level 8.7, Corrected Calcium 9.3, Total Bilirubin 0.5, Aspartate Amino Transf (AST/SGOT) 64, Alanine Aminotransferase (ALT/SGPT) 93, Alkaline Phosphatase 121, Total Protein 6.5, Albumin 3.3 04/22/20 05:30: White Blood Count 7.7, Red Blood Count 5.36, Hemoglobin 15.8, Hematocrit 48, Mean Corpuscular Volume 90, Mean Corpuscular Hemoglobin 30, Mean Corpuscular Hemoglobin Concent 33, Red Cell Distribution Width 13.2, Platelet Count 239, Mean Platelet Volume 11.5, Immature Granulocyte % (Auto) 0, Neutrophils (%) (Auto) 59, Lymphocytes (%) (Auto) 26, Monocytes (%) (Auto) 11, Eosinophils (%) (Auto) 3, Basophils (%) (Auto) 0, Neutrophils # (Auto) 4.6, Lymphocytes # (Auto) 2.0, Monocytes # (Auto) 0.8, Eosinophils # (Auto) 0.2, Basophils # (Auto) 0.0, I mmature Granulocyte # (Auto) 0.0, Sodium Level 140, Potassium Level 4.5, Chloride Level 105, Carbon Dioxide Level 25, Anion Gap 10, Blood Urea Nitrogen 17, Creatinine 0.90, Estimat Glomerular Filtration Rate > 60, BUN/Creatinine Ratio 19, Glucose Level 89, Calcium Level 9.3, Corrected Calcium 9.8, Total Bilirubin 0.5, Aspartate Amino Transf (AST/SGOT) 61, Alanine Aminotransferase ( ALT/SGPT) 97, Alkaline Phosphatase 134, Total Protein 6.7, Albumin 3.4 04/26/20 07:15: White Blood Count 7.5, Red Blood Count 5.51, Hemoglobin 16.4, Hematocrit 50, Mean Corpuscular Volume 91, Mean Corpuscular Hemoglobin 30, Mean Corpuscular Hemoglobin Concent 33, Red Cell Distribution Width 13.3, Platelet Count 190, Mean Platelet Volume 11.5, Sodium Level 139, Potassium Level 4.0, Chloride Level 105, Carbon Dioxide Level 24, Anion Gap 10, Blood Urea Nitrogen 15, Creatinine 0.93, Estimat Glomerular Filtration Rate > 60, BUN/Creatinine Ratio 16, Glucose Level 110, Calcium Level 9.7, Corrected Calcium 9.9, Total Bilirubin 0.6, Aspartate Amino Transf (AST/SGOT) 58, Alanine Aminotransferase (ALT/SGPT) 101, Alkaline Phosphatase 142, Total Protein 7.5, Albumin 3.8, Lactic Acid Level 1.33 04/29/20 06:10: White Blood Count 7.8, Red Blood Count 5.43, Hemoglobin 15.6, Hematocrit 49, Mean Corpuscular Volume 91, Mean Corpuscular Hemoglobin 29, Mean Corpuscular Hemoglobin Concent 32, Red Cell Distribution Width 13.4, Platelet Count 168, Mean Platelet Volume 11.8, Immature Granulocyte % (Auto) 0, Neutrophils (%) (Auto) 58, Lymphocytes (%) (Auto) 27, Monocytes (%) (Auto) 11, Eosinophils (%) (Auto) 4, Basophils (%) (Auto) 0, Neutrophils # (Auto) 4.5, Lymphocytes # (Auto) 2.1, Monocytes # (Auto) 0.8, Eosinophils # (Auto) 0.3, Basophils # (Auto) 0.0, Immature Granulocyte # (Auto) 0.0, Sodium Level 142, Potassium Level 4.4, Chloride Level 107, Carbon Dioxide Level 24, Anion Gap 11, Blood Urea Nitrogen 18, Creatinine 0.96, Estimat Glomerular Filtration Rate > 60, BUN/Creatinine Ratio 19, Glucose Level 84, Calcium Level 8.7, Corrected Calcium 9.1, Total Bilirubin 0.5, Aspartate Amino Transf (AST/SGOT) 77, Alanine Aminotransferase (ALT/SGPT) 141, Alkaline Phosphatase 131, Total Protein 6.3, Albumin 3.5 05/06/20 05:22: White Blood Count 7.0, Red Blood Count 5.07, Hemoglobin 14.6, Hematocrit 46, Mean Corpuscular Volume 91, Mean Corpuscular Hemoglobin 29, Mean Corpuscular Hem oglobin Concent 32, Red Cell Distribution Width 13.8, Platelet Count 151, Mean Platelet Volume 12.0, Immature Granulocyte % (Auto) 1, Neutrophils (%) (Auto) 55, Lymphocytes (%) (Auto) 29, Monocytes (%) (Auto) 12, Eosinophils (%) (Auto) 3, Basophils (%) (Auto) 0, Neutrophils # (Auto) 3.9, Lymphocytes # (Auto) 2.0, Monocytes # (Auto) 0.9, Eosinophils # (Auto) 0.2, Basophils # (Auto) 0.0, Immature Granulocyte # (Auto) 0.1, Sodium Level 141, Potassium Level 4.9, Chloride Level 105, Carbon Dioxide Level 28, Anion Gap 8, Blood Urea Nitrogen 17, Creatinine 1.14, Estimat Glomerular Filtration Rate > 60, BUN/Creatinine Ratio 15, Glucose Level 89, Calcium Level 8.9, Corrected Calcium 9.5, Total Bilirubin 0.4, Aspartate Amino Transf (AST/SGOT) 38, Alanine Aminotransferase (ALT/SGPT) 75, Alkaline Phosphatase 108, Total Protein 6.1, Albumin 3.3 05/10/20 06:00: Coronavirus 2019 ([facility]) Negative Discharge Home Medications: Active Scripts Active Boudreauxs (Zinc Oxide) 28 Gm Oint 0 Gm TOP NEEDED PRN Lotrimin AF (Miconazole Nitrate) 90 Gm Powder 0 Gm TOP BID Bisacodyl 10 Mg Supp.rect 10 Mg FL Q48H PRN Senna-Time S Tablet (Sennosides/Docusate Sodium) 1 Each Tablet 1 Ea PO BID Lactulose 20 Gm/30 Ml Solution 10 Gm PO BID PRN Xanax Tablet (Alprazolam) 0.25 Mg Tab 0.25 Mg PO Q8H PRN Gabapentin 400 Mg Capsule 400 Mg PO BID Oxyir Tablet (Oxycodone HCl) 5 Mg Tab 5 Mg PO Q4H PRN Voltaren (Diclofenac Sodium) 100 Gm Gel..gram. 0 Gm TOP QID Aspirin 81 Mg Tab.chew 81 Mg PO DAILY Spironolactone 25 Mg Tablet 25 Mg PO DAILY Bisoprolol Fumarate 5 Mg Tablet 5 Mg PO DAILY Lipitor (Atorvastatin Calcium) 40 Mg Tablet 40 Mg PO HS Eliquis (Apixaban) 5 Mg Tablet 5 Mg PO BID Reported Xarelto (Rivaroxaban) 10 Mg Tablet 10 Mg PO DAILY Hydralazine HCl 100 Mg Tablet 100 Mg PO TID Flecainide Acetate 50 Mg Tablet 50 Mg PO Cardizem Cd (Diltiazem HCl) 240 Mg Cap.er.24h 240 Mg PO DAILY Coreg (Carvedilol) 25 Mg Tab 50 Mg PO BID TAKES 2 (25MG) TABS Amlodipine Besylate 10 Mg Tablet 10 Mg PO DAILY Instructions to patient/family Please see electronic discharge instructions given to patient. 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
[2020-05-10 06:30] VITALS: BP 106/64
[2020-05-10] MEDS: DOCUSATE SODIUM 100 MG (COLACE) CAP PO SCH ×2 (07:51→21:03)
[2020-05-10] MEDS: SENNA W/DOCUSATE (SENOKOT S) TABLET PO SCH ×2 (07:51→21:03)
[2020-05-10] MEDS: GABAPENTIN 400 MG (NEURONTIN) CAP PO SCH ×2 (07:52→21:03)
[2020-05-10] MEDS: MICONAZOLE 2% POWDER (DESENEX AF) 90 GM TOP SCH ×2 (07:52→21:03)
[2020-05-10] MEDS: BISOPROLOL 5 MG TAB (ZEBETA) PO SCH (07:52)
[2020-05-10] MEDS: SPIRONOLACTONE 25 MG (ALDACTONE) TAB PO SCH (07:52)
[2020-05-10] MEDS: APIXABAN 5 MG (ELIQUIS) TABLET PO SCH ×2 (07:52→21:03)
[2020-05-10] MEDS: polyethylene glycoL POWDER 17 GM (MIRALAX) PACK PO SCH ×2 (07:52→21:03)
[2020-05-10] MEDS: DICLOFENAC 1% GEL 100 GM (VOLTAREN) TUBE TOP SCH ×4 (07:52→21:35)
[2020-05-10] MEDS: ASPIRIN 81 MG CHEW (CHILDREN'S ASA) PO SCH (07:52)
--- NOTE | 2020-05-10 09:22 | Occupational Ther Daily Note ---
OT Current Status-Daily Note Subjective Pt's call light going off upon entry. Pt points to briefs, agrees to need to have BM. Pt states 7/10 pain this am on R side, nursing administers meds. End of session, pt states pain has not changed. ADL-Treatment Therapy Code Descriptions/Definitions Functional [place] Measure: 0=Not Assessed/NA 4=Minimal Assistance 1=Total Assistance 5=Supervision or Setup 2=Maximal Assistance 6=Modified [place] 3=Moderate Assistance 7=Complete IndependenceSCALE: Activities may be completed with or without assistive devices. 7-Gblxgtdrle-oyeohat completes the activity by him/herself with no assistance from a helper. 5-Set-up or Clean-up Assistance-helper sets up or cleans up; patient completes activity. [place] assists only prior to or following the activity. 4-Supervision or Touching Assistance-helper provides verbal cues and/or touching/steadying and/or contact guard assistance as patient completes activity. Assistance may be provided throughout the activity or intermittently. 3-Partial/Moderate Assistance-helper does LESS THAN HALF the effort. [place] lifts, holds or supports trunk or limbs, but provides less than half the effort. 2-Substantial/Maximal Assistance-helper does MORE THAN HALF the effort. [place] lifts or holds trunk or limbs and provides more than half the effort. 3-Fsdnqyiaw-uwqtqs does ALL the effort. Patient does none of the effort to complete the activity. Or, the assistance of 2 or more helpers is required for the patient to complete the activity. If activity was not attempted, code reason: 7-Patient Refused. 9-Not Applicable-not attempted and the patient did not perform the activity before the current illness, exacerbation or injury. 10-Not Attempted due to Environmental Limitations-(lack of equipment, weather restraints, etc.). 88-Not Attempted due to Medical Conditions or Safety Concerns. Eating (QC): 6 Oral Hygiene (QC): 6 (completes in w/c at sink level.) Bathing Location: L Arm, R Arm, L Upper Leg, R Upper Leg, L Lower Leg (including foot), R Lower Leg (including foot), Chest, Abdomen, Perineal Area Shower/Bathe Self (QC): 3 (min A (bottom in stance) OT places w/c in front of bed and pt utilizes to stabilize during bottom cleansing/ LB dressing hiking. ) Upper Body Dressing (QC): 3 (min A for orientation of shirt/ R side.) Lower Body Dressing (QC): 3 (min A this date as Ax1. Pt threads with cues, completes BLE and stands perpendicular to bed, hiking pants with min A to right due to balance) On/Off Footwear: 3 (min A, use of dycem to stabilize R foot during task. Skilled cues for "C" hand positioning in sock for increased IND.) Toileting Hygiene (QC): 2 (max A- pt able to sit to stand with CGA and stand with min A for balance, max A bottom hygiene with Ax1) Toilet Transfer (QC): 3 (min A bed to commode placed on L side.) Other Treatment Pt demonstrates an increased IND with all ADL tasks this date due to Ax1 rather than 2 due to an increase in fx stance/ transfers, allowing OT to complete individual tx. Pt completes all tasks as outlined, increased cues for IND/ adaptive techniques. Post ADLs, pt completes w/c mobility with SUP through hallways, no instances of R side difficulty. Pt returns to room, is asked to s/u transfer as though he would do it himself. Pt able to set w/c, set brakes, doff R foot from foot rest, place footrest to side, (requires min cues for R foot positioning), prior to pt completing SPT to recliner with CGA. Pt educated on abilities pre/ post tx/ pre/ post ARU. Pt possible d/c today. All needs met, call light in reach, LEs elevated. Education OT Patient Education: Correct positioning, Modified ADL techniques, Progress toward Goal/Update tx plan, Purpose of tx/functional activities, Safety issues, Transfer techniques, Use of adapted equipment Teaching Recipient: Patient Teaching Methods: Demonstration, Discussion Response to Teaching: Verbalize Understanding, Return Demonstration, Reinforcement Needed OT Short Term Goals Short Term Goals Eatin Oral hygiene: 5 Toileting hygiene: 2 Shower/bathe self: 2 Upper body dressin Lower body dressin Putting on/taking off footwear: 2 OT Wireworker Supervisor Goals Custodial Goals Time Frame: May 29, 2020 Eating (QC): 6 Oral Hygiene (QC): 6 Toileting Hygiene (QC): 3 Shower/Bathe Self (QC): 5 Upper Body Dressing (QC): 6 Lower Body Dressing (QC): 3 On/Off Footwear (QC): 6 Additional Goals: 1-Demonstrate ADL Tasks, 2-Verbalize Understanding, 3- ImproveStrength/[place] 1=Demonstrate adherence to instructed precautions during ADL tasks. 2=Patient will verbalize/demonstrate understanding of assistive devices/modifications for ADL. 3=Patient will improve strength/tolerance for activity to enable patient to perform ADL's. OT Education/Plan Problem List/Assessment Assessment: Decreased Activ Tolerance, Decreased UE Strength, Dependent Tra nsfers, Impaired Coordination, Impaired Funct Balance, Impaired I ADL's, Impaired Self-Care Skills, Restricted Funct UE ROM, Visual-Perceptual Deficit Discharge Recommendations Plan/Recommendations: Continue POC Therapy Discharge Recommendati: 24 Hour Supervision, Post Acute OT Treatment Plan/Plan of Care Treatment,Training & Education: Yes Patient would benefit from OT for education, treatment and training to promote independence in ADL's, mobility, safety and/or upper extremity function for ADL's. Plan of Care: ADL Retraining, Caregiver Training, Concurrent Therapy, Functional Mobility, Group Exercise/Act as Ind, Orthotic Fitting/Training, UE Funct Exercise/Act, UE Neuromus Re-Ed/Coord, Visual/Perceptual Retrain, W/C Management Training Treatment Duration: Apr 24, 2020 Frequency: At least 5 of 7 days/Wk (IRF) Estimated Hrs Per Day: 1.5 hours per day Agreement: Yes Rehab Potential: Fair Time/GCodes Start Time: 08:00 Stop Time: 09:15 Total Time Billed (hr/min): 75 Billed Treatment Time 1, ADL 4 (60), FA (15)= 75 FATIMAH KERNS OTR May 10, 2020 09:22
--- NOTE | 2020-05-10 12:09 | Physical Therapy Daily Note ---
PT Daily Note-Current Subjective Pt. states he is DCing today. Agrees to Rx. Pain Location: No Pain Reported Mental Status Patient Orientation: Non-Verbal/Aphasic Attachments: Other-See Comments (mask out of room) Transfers SCALE: Activities may be completed with or without assistive devices. 8-Fyagonfjgp-yxuijql completes the activity by him/herself with no assistance from a helper. 5-Set-up or Clean-up Assistance-helper sets up or cleans up; patient completes activity. [place] assists only prior to or following the activity. 4-Supervision or Touching Assistance-helper provides verbal cues and/or touching/steadying and/or contact guard assistance as patient completes activity. Assistance may be provided throughout the activity or intermittently. 3-Partial/Moderate Assistance-helper does LESS THAN HALF the effort. [place] lifts, holds or supports trunk or limbs, but provides less than half the effort. 2-Substantial/Maximal Assistance-helper does MORE THAN HALF the effort. [place] lifts or holds trunk or limbs and provides more than half the effort. 8-Ezqvzhpxs-ndtjnd does ALL the effort. Patient does none of the effort to complete the activity. Or, the assistance of 2 or more helpers is required for the patient to complete the activity. If activity was not attempted, code reason: 7-Patient Refused. 9-Not Applicable-not attempted and the patient did not perform the activity before the current illness, exacerbation or injury. 10-Not Attempted due to Environmental Limitations-(lack of equipment, weather restraints, etc.). 88-Not Attempted due to Medical Conditions or Safety Concerns. Roll Left & Right (QC): 4 (rolling to left only) Sit to Lying (QC): 6 Lying to Sitting/Side of Bed(Q: 6 Sit to Stand (QC): 4 Chair/Kpv-zt-Xwvbq Xfer(QC): 4 Toilet Transfer (QC): 4 Car Transfer (QC): 4 pt. requires min to SBA assist to left and min to mod to right for SPTs Weight Bearing Full Weight Bearing Full Weight Bearing Gait Training Does the Patient Walk?: Yes Walk 10 feet (QC): 3 Walk 50 ft with 2 Turns(QC): 88 Walk 150 ft (QC): 88 Walking 10ft/uneven surface-QC: 88 Gait Persons Needed: 2 Gait Assistive Device: Walker Jose pt. requires mod to max assist to manage advancement of RLE as well as to maintain extension of right knee using an immoblizer, pt. at times over rides this with pressure on RLE Wheelchair Training Does the Pt Use a Wheelchair?: Yes Wheel 50 ft with 2 turns (QC): 6 Wheel 150 ft (QC): 6 Type of Wheelchair: Manual pt. needs reminders of how to manage right leg rest and swing out mechanism, brakes bilat indep Exercises Supine Ex: Bridging, Ankle pumps (assisted right), Rolling, Glut sets, Heel Slides (assisted right), Scooting, Straight leg raise (assisted right), Hip abd/add (assisted right) Supine Reps: 15 Treatments emphasis on manuevering w/c in "parallel park "style to align to surface to be TRFd to toward left . Pt. manages these TRFs well with CGA but has more difficulty TRFing toward his right . Assessment Current Status: Good Progress gives full effort, aphasia limits his comprehension of mobility explanation etc at times PT Short Term Goals Short Term Goals Time Frame: Apr 18, 2020 Roll Left & Right: 3 Sit to lyin Lying to sitting on side of be: 3 Sit to stand: 3 Chair/xda-fg-tmfat transfer: 3 PT Ruling Technician Goals Ruling Technician Goals PT Ruling Technician Goals Time Frame: May 02, 2020 Roll Left & Right (QC): 4 Sit to Lying (QC): 4 Lying-Sitting on Side/Bed(QC): 4 Sit to Stand (QC): 3 (Zoya) Chair/Jel-xk-Otvsy Xfer(QC): 3 (Zoya) Toilet Transfer (QC): 3 (Zoya) Car Transfer (QC): 3 (Zoya) Does the Patient Walk: No and Walking Goal NOT indicated Walk 10 feet (QC): 88 Walk 50ft with 2 Turns (QC): 88 Walk 150 ft (QC): 88 Walking 10ft on Uneven Surface: 88 1 Step (curb) (QC): 88 4 Steps (QC): 88 12 Steps (QC): 88 Picking up an Object (QC): 88 Wheel 50 feet with 2 turns (QC: 4 Wheel 150 feet: 4 PT Plan Treatment/Plan Treatment Plan: Continue Plan of Care Treatment Plan: Bed Mobility, Education, Functional Activity [place], Functional Strength, Group Therapy, Gait, Safety, Therapeutic Exercise, Transfers Treatment Duration: May 01, 2020 Frequency: At least 5 of 7 days/Wk (IRF) Estimated Hrs Per Day: 1.5 hours per day Patient and/or Family Agrees t: Yes Safety Risks/Education Patient Education: Gait Training, Transfer Techniques, Correct Positioning, W/C Management, Disease Process, Safety Issues Teaching Recipient: Patient Teaching Methods: Demonstration, Discussion Response to Teaching: Reinforcement Needed Time/GCodes Time In: 1100 Time Out: 1215 Total Billed Treatment Time: 75 Total Billed Treatment 1,WC 15m,FA45m,EX15m ZAIRA GALEANA CLOTH STRETCHER May 10, 2020 12:09
--- NOTE | 2020-05-10 12:41 | PM&R Progress Note ---
Subjective HPI/CC On Admission Date Seen by Provider: May 10, 2020 Time Seen by Provider: 10:30 Subjective/Events-last exam 05/10/20: MD did not accept patient after all 05/09/20: Awaiting NHP maybe tomorrow : No significant change Working pretty well with therapy Expressive aphasia makes it difficult to communicate 05/07/20: Suppository given due to no BM for four days Urinating in the urinal now Butt-paste maintained for skin protection 05/06/20: Pt doing pretty well Awaiting snf placement Labs remain stable Overall doing well 05/05/20: No changes Right sided pain still present Awaiting placement in NH 05/04/20: No major issues BM yesterday no supp used 05/02/20: No major changes More alert today In chair today No BM for several days and refuses suppository 05/01/20: No major changes Refuses suppository Pain on the right side continues Incontinent Sister did family training and felt like he will need to go to a nursing facility [facility] was sent a referral 04/30/20: No major changes Laxatives were refused and he is having a BM every other day without the suppository Denies any significant new issues 04/29/20: Patient reports no major issues No pain reported Pain meds are helpful 04/28/20: Periarea red so will start antifungal powder No pain reported otherwise Incontinence will require 24/7 nursing care along with severe deficit 04/27/2020: Incontinence of both bowel and bladder are limitations Denies any significant new issues Pain is pretty well controlled on the right side for flaccidity muscle spasms 04/26/2020: Patient denies any pain Incontinence requires nursing care 14/12 Pain is pretty well controlled Expressive aphasia makes it difficult to communicate 04/25/20: No major issues Pain controlled Participation with PT 04/24/20: Pt doing pretty well Bowels move after suppository every 48 hrs Decreasing pain medication Decreasing Cozaar due to hypotension per cardiology 04/23/20: BM after suppository every 48hrs Gabapentin BID seems to be working pretty well Using Oxycodone when Gabapentin is not enough No falls 04/22/20: No major issues Expressive aphasia continues Bowels moved yesterday after suppository given every 48 hours 04/21/20: Suppository today and BM Incontinent of B/B Pain improved Does not need to increase Gabapentin 04/20/20: BM yesterday Pain improved Sleepy today Doing better Incontinence : Improve right sided nerve pain Xanax and pain pill helps him BM after suppository Q 48 hours Incontinent of B/B 04/18/20: BM 04/17/20 Eliquis causes blurry vision per sister so will inquire with Dr Gibson regarding Xarelto Incontinent 04/17/20: Bowels not moving so will initiate Dulcolax suppository every 48hrs after laxatives given and he is agreeable for that plan Denies any significant new issues Pain is getting much better with the Gabapentin twice daily and Oxycodone 04/16/20: Right-sided pain still so increased Gabapentin to 300 Mg BID Xanax will help too Oxycodone also helps 04/15/20: Gabapentin maintained Oxycodone maintained Confusion noted? 04/14/20: Monitoring BP Pain right side still present and will increase Gabapentin 04/13/20: Right arm and right leg pain and issue Oxycodone not really helping Nerve pain so will give Gabapentin 04/12/20: Severe pain on right side Oxycodone ordered Participating in therapies well No other pain Pt doing pretty well Expressive aphasia is an issue WBC is 12.4 CMP normal Consulting cardiology Overall doing very well Conferred with RN Checked meds and labs Reviewed therapy notes Objective Exam Vital Signs Vital Signs Date Time Temp Pulse Resp B/P (MAP) Pulse Ox O2 Delivery O2 Flow Rate FiO2 05/11/20 05:28 35.9 81 16 107/68 (81) 97 Room Air Capillary Refill : Less Than 3 Seconds General Appearance: No Apparent Distress, WD/WN, Chronically ill HEENT: PERRL/EOMI, Normal ENT Inspection, Pharynx Normal Neck: Full Range of Motion, Normal Inspection, Non Tender, Supple, Carotid Bruit Respiratory: Chest Non Tender, Lungs Clear, Normal Breath Sounds, No Accessory Muscle Use, No Respiratory Distress Cardiovascular: Regular Rate, Rhythm, No Edema, No Gallop, No JVD, No Murmur, Normal Peripheral Pulses Gastrointestinal: Normal Bowel Sounds, No Organomegaly, No Pulsatile Mass, Non Tender, Soft Back: Normal Inspection, No CVA Tenderness, No Vertebral Tenderness Extremity: Normal Capillary Refill, Normal Inspection, Normal Range of Motion, Non Tender, No Calf Tenderness, No Pedal Edema Neurologic/Psychiatric: Alert, Normal Mood/Affect, Abnormal Gait, Aphasia, Depressed Affect, Disoriented, Motor Weakness (right sided flaccidity) Skin: Normal Color, Warm/Dry Lymphatic: No Adenopathy Results/Procedures Lab Patient resulted labs reviewed. FIM Transfers Therapy Code Descriptions/Definitions Functional [place] Measure: 0=Not Assessed/NA 4=Minimal Assistance 1=Total Assistance 5=Supervision or Setup 2=Maximal Assistance 6=Modified [place] 3=Moderate Assistance 7=Complete IndependenceSCALE: Activities may be completed with or without assistive devices. 5-Jzvnutpyvd-kashhhh completes the activity by him/herself with no assistance from a helper. 5-Set-up or Clean-up Assistance-helper sets up or cleans up; patient completes activity. [place] assists only prior to or following the activity. 4-Supervision or Touching Assistance-helper provides verbal cues and/or touching/steadying and/or contact guard assistance as patient completes activity. Assistance may be provided throughout the activity or intermittently. 3-Partial/Moderate Assistance-helper does LESS THAN HALF the effort. [place] lifts, holds or supports trunk or limbs, but provides less than half the effort. 2-Substantial/Maximal Assistance-helper does MORE THAN HALF the effort. [place] lifts or holds trunk or limbs and provides more than half the effort. 2-Xphpvewgt-gurfjz does ALL the effort. Patient does none of the effort to complete the activity. Or, the assistance of 2 or more helpers is required for the patient to complete the activity. If activity was not attempted, code reason: 7-Patient Refused. 9-Not Applicable-not attempted and the patient did not perform the activity before the current illness, exacerbation or injury. 10-Not Attempted due to Environmental Limitations-(lack of equipment, weather restraints, etc.). 88-Not Attempted due to Medical Conditions or Safety Concerns. Roll Left to Right (QC): 4 (rolling to left only) Sit to Lying (QC): 6 Sit to Stand (QC): 4 Chair/Iqi-px-Ykqik Xfer(QC): 4 Car Transfer (QC): 4 Gait Training Does the Patient Walk?: Yes Distance: 20'x3 Walk 10 feet (QC): 3 Walk 50 ft with 2 Turns(QC): 88 Walk 150 ft (QC): 88 Walking 10ft/uneven surface-QC: 88 Gait Persons Needed: 2 Gait Assistive Device: Walker Jose Wheelchair Training Does the Pt Use a Wheelchair?: Yes Wheel 50 ft with 2 turns (QC): 6 Wheel 150 ft (QC): 6 Type of Wheelchair: Manual Stair Training 1 Step (curb) (QC): 9 4 Steps (QC): 9 12 Steps (QC): 9 Balance Picking up an Object (QC): 88 ADL-Treatment Eating (QC): 6 Oral Hygiene (QC): 6 (completes in w/c at sink level.) Bathing Location: L Arm, R Arm, L Upper Leg, R Upper Leg, L Lower Leg (including foot), R Lower Leg (including foot), Chest, Abdomen, Perineal Area Shower/Bathe Self (QC): 3 (min A (bottom in stance) OT places w/c in front of bed and pt utilizes to stabilize during bottom cleansing/ LB dressing hiking. ) Upper Body Dressing (QC): 3 (min A for orientation of shirt/ R side.) Lower Body Dressing (QC): 3 (min A this date as Ax1. Pt threads with cues, completes BLE and stands perpendicular to bed, hiking pants with min A to right due to balance) On/Off Footwear (QC): 3 (min A, use of dycem to stabilize R foot during task. 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 Defib in place Cardiomyopathy HTN Plan: Monitor dysphagia Cardiology consultation IRF protocol 04/11/20: Monitor BP Appreciate Cardiology 04/12/20: Monitor closely Pain management 04/13/20: Gabapentin Oxycodone 04/14/20: Increase Gabapentin Oxycodone BM regimen to increase today may need supp 04/15/20: BM++ Monitor pain of right side 04/16/20: Increase dose of Neurontin Maintain aggressive rehab 04/17/20: BM regimen to include supp Q48 hrs Monitor pain Monitor BP 04/18/20: Increased Gabpentin some more today BM regimen 04/19/20: Manage incontinence Right arm and right leg pain management 04/20/20: Maintain pain control Incontinence management BM regimen 04/21/20: Suppository [id number] Monitor closely Pain control 04/22/20: Continue BM regimen Monitor right sided pain 04/23/20: BM regimen PT OT Incontinence care 04/24/20: Monitor BP Fall risk BM regimen 04/25/20: No med changes Pain controlled 04/26/2020: Pain management Bowel regimen with suppository every 48 hours Continue intensive therapy 04/27/2020: Aggressive therapy Incontinence care Pain control 04/28/20: Monitor closely Periarea powder Monitor pain Check labs in am 04/29/20: Labs reviewed Monitor pain issues 04/30/20: Continue therapy Needs dispo 05/01/20: DC to NH at DC Monitor closely Pain continues and difficult to ascertain due to expressive aphasia 05/02/20: Pain control Incontinence care Needs NH placement 05/04/20: Monitor BM Needs NH 05/05/20: Incontinence care 05/06/20: Await NHP Labs normal 05/07/20: DC to NH once accepted 05/08/20: Monitor closely 05/09/20: Monitor pain NHP 05/10/20: V[facility] qamar care requested for DC (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
--- NOTE | 2020-05-10 14:20 | Speech Therapy Daily Note ---
Speech Daily Progress Note Subjective Date Seen by Provider: May 10, 2020 Time Seen by Provider: 00:30 Patient was resting in his room watching television when I entered his room. Objective Patient completed a series of general information trivia questions at 50% with moderate phonemic and written clues. Assessment Assessment Current Status: Fair Progress Treatment Plan Continue Plan of Care Speech Short Term Goals Short Term Goals Short Term Goals 1) The patient will complete OME for improved speech production at each session with 80% or greater accuracy. 2) The patient will complete word finding tasks with 80% or greater accuracy. 3) The patient will complete expressive language tasks 80% or greater accuracy. 4) The patient will tolerate least restrictive diet level without s/s of aspiration at 80% or greater accuracy. 5) The patient will utilize compensatory strategies as trained 80% or greater accuracy. Speech Nursing Home Goals Nursing Home Goals Patient will improve cognitive-communication abilities for completion of daily needs with minimal assist. Patient will maintain adequate nutrition/hydration via safe effective swallow function. Speech-Plan Patient/Family Goals Patient/Family Goals: Patient's discharge location is planned for a SNF when the insurance coverage is confirmed. Treatment Plan Speech Therapy Treatment Plan: Continue Plan of Care Treatment Duration: May 15, 2020 Frequency: 4 times per week (Patient will receive skilled ST 4-5x per week) Estimated Hrs Per Day: .5 hour per day Rehab Potential: Fair Barriers to Learning: Patient's expressive aphasia Pt/Family Agrees to Plan: Yes Safety Risks/Education Teaching Recipient: Patient Teaching Methods: Demonstration, Discussion Response to Teaching: Verbalize Understanding, Return Demonstration Education Topics Provided: Continued safety within his room and with oral intake Time Speech Therapy Time In: 13:30 Speech Therapy Time Out: 14:00 Total Billed Time: 30 Billed Treatment Time 1, TYRONE, FIDEL Najera May 10, 2020 14:20
--- NOTE | 2020-05-10 17:25 | NUR ---
CM/SS DISCHARGE PLANNING Patient will have continued stay on ARU while accepting community nursing facility is pursued. Size Tester and Occupational Health Specialist/Rebecca had telephone meeting with [facility] Exec Director/Mary Lyn. Proposed negotiation for [facility] to accept patient and provide therapy under qamar care due to Medicaid-only insurance. Mary stated she would make contacts through corporate channels as well as Medicaid [facility] regarding any potential approval. Followup Wednesday. [facility] informed narrative writer early afternoon they would not accept patient due to learning his particular Medicaid plan had no possible options for therapy funding. [facility] [place] explored patient and finalized their denial today as well. Updated patient, he was understandably disappointed. Updated sister/DPELIZ Peñaloza intermittently. Size Tester has advised her to followup on the Medicaid option to select an alternate Plan within the allowed 30 day window. Patient could select from [place] or [employer] as alternatives to [employer]. Provided contact information for Sandeep at [facility] regarding advice. Physician and staff updated of no discharge and resume of case management activities first of week.
[2020-05-10 18:00] VITALS: BP 98/63
--- NOTE | 2020-05-10 19:04 | NUR ---
bedside report received from SANIYA MARSHALL, assume care of pt
--- NOTE | 2020-05-10 21:03 | NUR ---
Pt refused Colace, Miralax, Senokot & Desenex, c/o rt sided pain, pain level 6/10 on numeric scale, Oxyir 5mg given
--- NOTE | 2020-05-10 21:52 | NUR ---
pain level 4/10 on numeric scale
[2020-05-11 05:28] VITALS: BP 107/68
[2020-05-11 08:00] VITALS: BP 105/72
--- NOTE | 2020-05-11 09:00 | NUR ---
ABLE TO PULL ON AND OFF CLOTHES AND USE URINAL WITHOUT ASSISTANCE. ABLE TO TAKE PILLS WELL WITH NECTAR-THICKENED LIQUIDS ONLY. DENIES PAIN.
[2020-05-11] MEDS: BISOPROLOL 5 MG TAB (ZEBETA) PO SCH (09:14)
[2020-05-11] MEDS: ASPIRIN 81 MG CHEW (CHILDREN'S ASA) PO SCH (09:14)
[2020-05-11] MEDS: GABAPENTIN 400 MG (NEURONTIN) CAP PO SCH ×2 (09:14→20:48)
[2020-05-11] MEDS: SPIRONOLACTONE 25 MG (ALDACTONE) TAB PO SCH (09:14)
[2020-05-11] MEDS: APIXABAN 5 MG (ELIQUIS) TABLET PO SCH ×2 (09:14→20:48)
[2020-05-11] MEDS: DOCUSATE SODIUM 100 MG (COLACE) CAP PO SCH ×2 (09:16→20:55)
[2020-05-11] MEDS: SENNA W/DOCUSATE (SENOKOT S) TABLET PO SCH ×2 (09:17→20:55)
[2020-05-11] MEDS: polyethylene glycoL POWDER 17 GM (MIRALAX) PACK PO SCH ×2 (09:17→20:55)
[2020-05-11] MEDS: DICLOFENAC 1% GEL 100 GM (VOLTAREN) TUBE TOP SCH ×4 (09:18→20:51)
[2020-05-11] MEDS: MICONAZOLE 2% POWDER (DESENEX AF) 90 GM TOP SCH ×2 (09:19→20:56)
--- NOTE | 2020-05-11 10:38 | Physical Therapy Daily Note ---
PT Daily Note-Current Subjective Pt agreeable without complaint. Pt resting in bed upon arrival, back to bed post therapy per pt request. Mental Status Patient Orientation: Person, Non-Verbal/Aphasic Transfers SCALE: Activities may be completed with or without assistive devices. 3-Hqtgmnfltz-pdcbnng completes the activity by him/herself with no assistance from a helper. 5-Set-up or Clean-up Assistance-helper sets up or cleans up; patient completes activity. [place] assists only prior to or following the activity. 4-Supervision or Touching Assistance-helper provides verbal cues and/or touching/steadying and/or contact guard assistance as patient completes activity. Assistance may be provided throughout the activity or intermittently. 3-Partial/Moderate Assistance-helper does LESS THAN HALF the effort. [place] lifts, holds or supports trunk or limbs, but provides less than half the effort. 2-Substantial/Maximal Assistance-helper does MORE THAN HALF the effort. [place] lifts or holds trunk or limbs and provides more than half the effort. 7-Iwhatgwio-zcxcwe does ALL the effort. Patient does none of the effort to complete the activity. Or, the assistance of 2 or more helpers is required for the patient to complete the activity. If activity was not attempted, code reason: 7-Patient Refused. 9-Not Applicable-not attempted and the patient did not perform the activity before the current illness, exacerbation or injury. 10-Not Attempted due to Environmental Limitations-(lack of equipment, weather restraints, etc.). 88-Not Attempted due to Medical Conditions or Safety Concerns. Weight Bearing Full Weight Bearing Full Weight Bearing Treatments Pt intiated transfer to EOB (I). Pt SPT bed<->w/c with CGA. Pt scoots in bed (I). Pt out to hallway for gait training via w/c. Pt self propelled w/c 2 x 125ft. Pt amb with knee immob (R) LE using hand rail for support 3 x 25ft forward, 1 x 10ft retro and 2 x 25ft sidestepping (L). Pt back to bed with min A for LE. Pt resting comfortably with call light and all needs met. Assessment Current Status: Good Progress Good performance. Pt zari well. Pt showed good balanc and safe mobility but requires CGA at all times due to weakness (R) UE and LE's. Back to bed with call light and all needs met. PT Short Term Goals Short Term Goals Time Frame: Apr 18, 2020 Roll Left & Right: 3 Sit to lyin Lying to sitting on side of be: 3 Sit to stand: 3 Chair/mie-ao-pqppx transfer: 3 PT Emergency Department Manager Goals Emergency Department Manager Goals PT Emergency Department Manager Goals Time Frame: May 02, 2020 Roll Left & Right (QC): 4 Sit to Lying (QC): 4 Lying-Sitting on Side/Bed(QC): 4 Sit to Stand (QC): 3 (Zoya) Chair/Nmg-vw-Mvfem Xfer(QC): 3 (Zoya) Toilet Transfer (QC): 3 (Zoya) Car Transfer (QC): 3 (Zoya) Does the Patient Walk: No and Walking Goal NOT indicated Walk 10 feet (QC): 88 Walk 50ft with 2 Turns (QC): 88 Walk 150 ft (QC): 88 Walking 10ft on Uneven Surface: 88 1 Step (curb) (QC): 88 4 Steps (QC): 88 12 Steps (QC): 88 Picking up an Object (QC): 88 Wheel 50 feet with 2 turns (QC: 4 Wheel 150 feet: 4 PT Plan Treatment/Plan Treatment Plan: Continue Plan of Care Treatment Plan: Bed Mobility, Education, Functional Activity [place], Functional Strength, Group Therapy, Gait, Safety, Therapeutic Exercise, Transfers Treatment Duration: May 01, 2020 Frequency: At least 5 of 7 days/Wk (IRF) Estimated Hrs Per Day: 1.5 hours per day Patient and/or Family Agrees t: Yes Time/GCodes Time In: 935 Time Out: 1000 Total Billed Treatment Time: 25 Total Billed Treatment 1, gait x 25' ZELDA CLARKE CPTA May 11, 2020 10:38
--- NOTE | 2020-05-11 11:51 | PM&R Progress Note ---
Subjective HPI/CC On Admission Date Seen by Provider: May 11, 2020 Time Seen by Provider: 10:30 Subjective/Events-last exam 05/11/20: Monitor pain 05/10/20: NH did not accept patient after all 05/09/20: Awaiting NHP maybe tomorrow : No significant change Working pretty well with therapy Expressive aphasia makes it difficult to communicate 05/07/20: Suppository given due to no BM for four days Urinating in the urinal now Butt-paste maintained for skin protection 05/06/20: Pt doing pretty well Awaiting fpc placement Labs remain stable Overall doing well 05/05/20: No changes Right sided pain still present Awaiting placement in NH 05/04/20: No major issues BM yesterday no supp used 05/02/20: No major changes More alert today In chair today No BM for several days and refuses suppository 05/01/20: No major changes Refuses suppository Pain on the right side continues Incontinent Sister did family training and felt like he will need to go to a nursing facility [facility] was sent a referral 04/30/20: No major changes Laxatives were refused and he is having a BM every other day without the suppository Denies any significant new issues 04/29/20: Patient reports no major issues No pain reported Pain meds are helpful 04/28/20: Periarea red so will start antifungal powder No pain reported otherwise Incontinence will require 24 nursing care along with severe deficit 04/27/2020: Incontinence of both bowel and bladder are limitations Denies any significant new issues Pain is pretty well controlled on the right side for flaccidity muscle spasms 04/26/2020: Patient denies any pain Incontinence requires nursing care 14/12 Pain is pretty well controlled Expressive aphasia makes it difficult to communicate 04/25/20: No major issues Pain controlled Participation with PT 04/24/20: Pt doing pretty well Bowels move after suppository every 48 hrs Decreasing pain medication Decreasing Cozaar due to hypotension per cardiology 04/23/20: BM after suppository every 48hrs Gabapentin BID seems to be working pretty well Using Oxycodone when Gabapentin is not enough No falls 04/22/20: No major issues Expressive aphasia continues Bowels moved yesterday after suppository given every 48 hours 04/21/20: Suppository today and BM Incontinent of B/B Pain improved Does not need to increase Gabapentin 04/20/20: BM yesterday Pain improved Sleepy today Doing better Incontinence : Improve right sided nerve pain Xanax and pain pill helps him BM after suppository Q 48 hours Incontinent of B/B 04/18/20: BM 04/17/20 Eliquis causes blurry vision per sister so will inquire with Dr Gibson regarding Xarelto Incontinent 04/17/20: Bowels not moving so will initiate Dulcolax suppository every 48hrs after laxatives given and he is agreeable for that plan Denies any significant new issues Pain is getting much better with the Gabapentin twice daily and Oxycodone 04/16/20: Right-sided pain still so increased Gabapentin to 300 Mg BID Xanax will help too Oxycodone also helps 04/15/20: Gabapentin maintained Oxycodone maintained Confusion noted? 04/14/20: Monitoring BP Pain right side still present and will increase Gabapentin 04/13/20: Right arm and right leg pain and issue Oxycodone not really helping Nerve pain so will give Gabapentin 04/12/20: Severe pain on right side Oxycodone ordered Participating in therapies well No other pain Pt doing pretty well Expressive aphasia is an issue WBC is 12.4 CMP normal Consulting cardiology Overall doing very well Conferred with RN Checked meds and labs Reviewed therapy notes Review of Systems General: Fatigue, Malaise Neurological: Weakness, Incoordination Objective Exam Vital Signs Vital Signs Date Time Temp Pulse Resp B/P (MAP) Pulse Ox O2 Delivery O2 Flow Rate FiO2 05/12/20 05:52 35.8 80 18 108/69 (82) 98 Room Air Capillary Refill : Less Than 3 Seconds General Appearance: No Apparent Distress, WD/WN, Chronically ill HEENT: PERRL/EOMI, Normal ENT Inspection, Pharynx Normal Neck: Full Range of Motion, Normal Inspection, Non Tender, Supple, Carotid Bruit Respiratory: Chest Non Tender, Lungs Clear, Normal Breath Sounds, No Accessory Muscle Use, No Respiratory Distress Cardiovascular: Regular Rate, Rhythm, No Edema, No Gallop, No JVD, No Murmur, Normal Peripheral Pulses Gastrointestinal: Normal Bowel Sounds, No Organomegaly, No Pulsatile Mass, Non Tender, Soft Back: Normal Inspection, No CVA Tenderness, No Vertebral Tenderness Extremity: Normal Capillary Refill, Normal Inspection, Normal Range of Motion, Non Tender, No Calf Tenderness, No Pedal Edema Neurologic/Psychiatric: Alert, Normal Mood/Affect, Abnormal Gait, Aphasia, Depressed Affect, Disoriented, Motor Weakness (right sided flaccidity) Skin: Normal Color, Warm/Dry Lymphatic: No Adenopathy Results/Procedures Lab Patient resulted labs reviewed. FIM Transfers Therapy Code Descriptions/Definitions Functional [place] Measure: 0=Not Assessed/NA 4=Minimal Assistance 1=Total Assistance 5=Supervision or Setup 2=Maximal Assistance 6=Modified [place] 3=Moderate Assistance 7=Complete IndependenceSCALE: Activities may be completed with or without assistive devices. 0-Pfgkphtprk-nvuolbr completes the activity by him/herself with no assistance from a helper. 5-Set-up or Clean-up Assistance-helper sets up or cleans up; patient completes activity. [place] assists only prior to or following the activity. 4-Supervision or Touching Assistance-helper provides verbal cues and/or touching/steadying and/or contact guard assistance as patient completes activity. Assistance may be provided throughout the activity or intermittently. 3-Partial/Moderate Assistance-helper does LESS THAN HALF the effort. [place] lifts, holds or supports trunk or limbs, but provides less than half the effort. 2-Substantial/Maximal Assistance-helper does MORE THAN HALF the effort. [place] lifts or holds trunk or limbs and provides more than half the effort. 3-Aakdqqwpk-hwbqiq does ALL the effort. Patient does none of the effort to complete the activity. Or, the assistance of 2 or more helpers is required for the patient to complete the activity. If activity was not attempted, code reason: 7-Patient Refused. 9-Not Applicable-not attempted and the patient did not perform the activity before the current illness, exacerbation or injury. 10-Not Attempted due to Environmental Limitations-(lack of equipment, weather restraints, etc.). 88-Not Attempted due to Medical Conditions or Safety Concerns. Roll Left to Right (QC): 4 (rolling to left only) Sit to Lying (QC): 6 Sit to Stand (QC): 4 Chair/Vpy-ck-Askuj Xfer(QC): 4 Car Transfer (QC): 4 Gait Training Does the Patient Walk?: Yes Distance: 20'x3 Walk 10 feet (QC): 3 Walk 50 ft with 2 Turns(QC): 88 Walk 150 ft (QC): 88 Walking 10ft/uneven surface-QC: 88 Gait Persons Needed: 2 Gait Assistive Device: Walker Jose Wheelchair Training Does the Pt Use a Wheelchair?: Yes Wheel 50 ft with 2 turns (QC): 6 Wheel 150 ft (QC): 6 Type of Wheelchair: Manual Stair Training 1 Step (curb) (QC): 9 4 Steps (QC): 9 12 Steps (QC): 9 Balance Picking up an Object (QC): 88 ADL-Treatment Eating (QC): 6 Oral Hygiene (QC): 6 (completes in w/c at sink level.) Bathing Location: L Arm, R Arm, L Upper Leg, R Upper Leg, L Lower Leg (including foot), R Lower Leg (including foot), Chest, Abdomen, Perineal Area Shower/Bathe Self (QC): 3 (min A (bottom in stance) OT places w/c in front of bed and pt utilizes to stabilize during bottom cleansing/ LB dressing hiking. ) Upper Body Dressing (QC): 3 (min A for orientation of shirt/ R side.) Lower Body Dressing (QC): 3 (min A this date as Ax1. Pt threads with cues, completes BLE and stands perpendicular to bed, hiking pants with min A to right due to balance) On/Off Footwear (QC): 3 (min A, use of dycem to stabilize R foot during task. 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 Defib in place Cardiomyopathy HTN Plan: Monitor dysphagia Cardiology consultation IRF protocol 04/11/20: Monitor BP Appreciate Cardiology 04/12/20: Monitor closely Pain management 04/13/20: Gabapentin Oxycodone 04/14/20: Increase Gabapentin Oxycodone BM regimen to increase today may need supp 04/15/20: BM++ Monitor pain of right side 04/16/20: Increase dose of Neurontin Maintain aggressive rehab 04/17/20: BM regimen to include supp Q48 hrs Monitor pain Monitor BP 04/18/20: Increased Gabpentin some more today BM regimen 04/19/20: Manage incontinence Right arm and right leg pain management 04/20/20: Maintain pain control Incontinence management BM regimen 04/21/20: Suppository [id number] Monitor closely Pain control 04/22/20: Continue BM regimen Monitor right sided pain 04/23/20: BM regimen PT OT Incontinence care 04/24/20: Monitor BP Fall risk BM regimen 04/25/20: No med changes Pain controlled 04/26/2020: Pain management Bowel regimen with suppository every 48 hours Continue intensive therapy 04/27/2020: Aggressive therapy Incontinence care Pain control 04/28/20: Monitor closely Periarea powder Monitor pain Check labs in am 04/29/20: Labs reviewed Monitor pain issues 04/30/20: Continue therapy Needs dispo 05/01/20: DC to NH at DC Monitor closely Pain continues and difficult to ascertain due to expressive aphasia 05/02/20: Pain control Incontinence care Needs NH placement 05/04/20: Monitor BM Needs NH 05/05/20: Incontinence care 05/06/20: Await NHP Labs normal 05/07/20: DC to NH once accepted 05/08/20: Monitor closely 05/09/20: Monitor pain NHP 05/10/20: [facility] care requested for DC 05/11/20: Maintain pain control Monitor BP (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
[2020-05-11 17:59] VITALS: BP 106/72
--- NOTE | 2020-05-11 18:00 | NUR ---
UP TO CHAIR X 2 TODAY AND TOLERATED WELL.
--- NOTE | 2020-05-11 19:04 | NUR ---
Bedside report received from NOHEMI MARSHALL, assume care of pt
--- NOTE | 2020-05-11 20:49 | NUR ---
Pt refused Colace, Miralax, Senokot & Desenex, c/o RT sided pain level 7/10 on numeric scale, Oxyir 5 mg given
--- NOTE | 2020-05-11 21:40 | NUR ---
Rates pain level 3/10 on numeric scale
--- NOTE | 2020-05-12 04:10 | NUR ---
C/O RT sided pain level 7/10 on numeric scale Oxyir 5mg given
--- NOTE | 2020-05-12 05:00 | NUR ---
resting quietly in bed, pain level 0/10 on CNPI SCALE
[2020-05-12 05:52] VITALS: BP 108/69
--- NOTE | 2020-05-12 07:30 | PM&R Progress Note ---
Subjective HPI/CC On Admission Date Seen by Provider: May 12, 2020 Time Seen by Provider: 10:00 Subjective/Events-last exam 05/12/20: Awaiting placement 05/11/20: Monitor pain 05/10/20: NH did not accept patient after all 05/09/20: Awaiting NHP maybe tomorrow : No significant change Working pretty well with therapy Expressive aphasia makes it difficult to communicate 05/07/20: Suppository given due to no BM for four days Urinating in the urinal now Butt-paste maintained for skin protection 05/06/20: Pt doing pretty well Awaiting halfway placement Labs remain stable Overall doing well 05/05/20: No changes Right sided pain still present Awaiting placement in NH 05/04/20: No major issues BM yesterday no supp used 05/02/20: No major changes More alert today In chair today No BM for several days and refuses suppository 05/01/20: No major changes Refuses suppository Pain on the right side continues Incontinent Sister did family training and felt like he will need to go to a nursing facility [facility] was sent a referral 04/30/20: No major changes Laxatives were refused and he is having a BM every other day without the suppository Denies any significant new issues 04/29/20: Patient reports no major issues No pain reported Pain meds are helpful 04/28/20: Periarea red so will start antifungal powder No pain reported otherwise Incontinence will require 24/7 nursing care along with severe deficit 04/27/2020: Incontinence of both bowel and bladder are limitations Denies any significant new issues Pain is pretty well controlled on the right side for flaccidity muscle spasms 04/26/2020: Patient denies any pain Incontinence requires nursing care 14/12 Pain is pretty well controlled Expressive aphasia makes it difficult to communicate 04/25/20: No major issues Pain controlled Participation with PT 04/24/20: Pt doing pretty well Bowels move after suppository every 48 hrs Decreasing pain medication Decreasing Cozaar due to hypotension per cardiology 04/23/20: BM after suppository every 48hrs Gabapentin BID seems to be working pretty well Using Oxycodone when Gabapentin is not enough No falls 04/22/20: No major issues Expressive aphasia continues Bowels moved yesterday after suppository given every 48 hours 04/21/20: Suppository today and BM Incontinent of B/B Pain improved Does not need to increase Gabapentin 04/20/20: BM yesterday Pain improved Sleepy today Doing better Incontinence : Improve right sided nerve pain Xanax and pain pill helps him BM after suppository Q 48 hours Incontinent of B/B 04/18/20: BM 04/17/20 Eliquis causes blurry vision per sister so will inquire with Dr Gibson regarding Xarelto Incontinent 04/17/20: Bowels not moving so will initiate Dulcolax suppository every 48hrs after laxatives given and he is agreeable for that plan Denies any significant new issues Pain is getting much better with the Gabapentin twice daily and Oxycodone 04/16/20: Right-sided pain still so increased Gabapentin to 300 Mg BID Xanax will help too Oxycodone also helps 04/15/20: Gabapentin maintained Oxycodone maintained Confusion noted? 04/14/20: Monitoring BP Pain right side still present and will increase Gabapentin 04/13/20: Right arm and right leg pain and issue Oxycodone not really helping Nerve pain so will give Gabapentin 04/12/20: Severe pain on right side Oxycodone ordered Participating in therapies well No other pain Pt doing pretty well Expressive aphasia is an issue WBC is 12.4 CMP normal Consulting cardiology Overall doing very well Conferred with RN Checked meds and labs Reviewed therapy notes Review of Systems Neurological: Weakness, Incoordination Objective Exam Vital Signs Vital Signs Date Time Temp Pulse Resp B/P (MAP) Pulse Ox O2 Delivery O2 Flow Rate FiO2 05/13/20 06:29 36.0 80 16 110/69 (83) 98 Room Air Capillary Refill : Less Than 3 Seconds General Appearance: No Apparent Distress, WD/WN, Chronically ill HEENT: PERRL/EOMI, Normal ENT Inspection, Pharynx Normal Neck: Full Range of Motion, Normal Inspection, Non Tender, Supple, Carotid Bruit Respiratory: Chest Non Tender, Lungs Clear, Normal Breath Sounds, No Accessory Muscle Use, No Respiratory Distress Cardiovascular: Regular Rate, Rhythm, No Edema, No Gallop, No JVD, No Murmur, Normal Peripheral Pulses Gastrointestinal: Normal Bowel Sounds, No Organomegaly, No Pulsatile Mass, Non Tender, Soft Back: Normal Inspection, No CVA Tenderness, No Vertebral Tenderness Extremity: Normal Capillary Refill, Normal Inspection, Normal Range of Motion, Non Tender, No Calf Tenderness, No Pedal Edema Neurologic/Psychiatric: Alert, Normal Mood/Affect, Abnormal Gait, Aphasia, Depressed Affect, Disoriented, Motor Weakness (right sided flaccidity) Skin: Normal Color, Warm/Dry Lymphatic: No Adenopathy Results/Procedures Lab Laboratory Tests 05/13/20 05:59 Patient resulted labs reviewed. FIM Transfers Therapy Code Descriptions/Definitions Functional [place] Measure: 0=Not Assessed/NA 4=Minimal Assistance 1=Total Assistance 5=Supervision or Setup 2=Maximal Assistance 6=Modified [place] 3=Moderate Assistance 7=Complete IndependenceSCALE: Activities may be completed with or without assistive devices. 1-Jymvcvtfvg-iagsqmw completes the activity by him/herself with no assistance from a helper. 5-Set-up or Clean-up Assistance-helper sets up or cleans up; patient completes activity. [place] assists only prior to or following the activity. 4-Supervision or Touching Assistance-helper provides verbal cues and/or touching/steadying and/or contact guard assistance as patient completes activity. Assistance may be provided throughout the activity or intermittently. 3-Partial/Moderate Assistance-helper does LESS THAN HALF the effort. [place] lifts, holds or supports trunk or limbs, but provides less than half the effort. 2-Substantial/Maximal Assistance-helper does MORE THAN HALF the effort. [place] lifts or holds trunk or limbs and provides more than half the effort. 8-Citrettgk-styuyq does ALL the effort. Patient does none of the effort to complete the activity. Or, the assistance of 2 or more helpers is required for the patient to complete the activity. If activity was not attempted, code reason: 7-Patient Refused. 9-Not Applicable-not attempted and the patient did not perform the activity before the current illness, exacerbation or injury. 10-Not Attempted due to Environmental Limitations-(lack of equipment, weather restraints, etc.). 88-Not Attempted due to Medical Conditions or Safety Concerns. Roll Left to Right (QC): 4 (rolling to left only) Sit to Lying (QC): 6 Sit to Stand (QC): 4 Chair/Ptq-fa-Yuxkc Xfer(QC): 4 Car Transfer (QC): 4 Gait Training Does the Patient Walk?: Yes Distance: 20'x3 Walk 10 feet (QC): 3 Walk 50 ft with 2 Turns(QC): 88 Walk 150 ft (QC): 88 Walking 10ft/uneven surface-QC: 88 Gait Persons Needed: 2 Gait Assistive Device: Walker Jose Wheelchair Training Does the Pt Use a Wheelchair?: Yes Wheel 50 ft with 2 turns (QC): 6 Wheel 150 ft (QC): 6 Type of Wheelchair: Manual Stair Training 1 Step (curb) (QC): 9 4 Steps (QC): 9 12 Steps (QC): 9 Balance Picking up an Object (QC): 88 ADL-Treatment Eating (QC): 6 Oral Hygiene (QC): 6 (completes in w/c at sink level.) Bathing Location: L Arm, R Arm, L Upper Leg, R Upper Leg, L Lower Leg (including foot), R Lower Leg (including foot), Chest, Abdomen, Perineal Area Shower/Bathe Self (QC): 3 (min A (bottom in stance) OT places w/c in front of bed and pt utilizes to stabilize during bottom cleansing/ LB dressing hiking. ) Upper Body Dressing (QC): 3 (min A for orientation of shirt/ R side.) Lower Body Dressing (QC): 3 (min A this date as Ax1. Pt threads with cues, completes BLE and stands perpendicular to bed, hiking pants with min A to right due to balance) On/Off Footwear (QC): 3 (min A, use of dycem to stabilize R foot during task. 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 Defib in place Cardiomyopathy HTN Plan: Monitor dysphagia Cardiology consultation IRF protocol 04/11/20: Monitor BP Appreciate Cardiology 04/12/20: Monitor closely Pain management 04/13/20: Gabapentin Oxycodone 04/14/20: Increase Gabapentin Oxycodone BM regimen to increase today may need supp 04/15/20: BM++ Monitor pain of right side 04/16/20: Increase dose of Neurontin Maintain aggressive rehab 04/17/20: BM regimen to include supp Q48 hrs Monitor pain Monitor BP 04/18/20: Increased Gabpentin some more today BM regimen 04/19/20: Manage incontinence Right arm and right leg pain management 04/20/20: Maintain pain control Incontinence management BM regimen 04/21/20: Suppository [id number] Monitor closely Pain control 04/22/20: Continue BM regimen Monitor right sided pain 04/23/20: BM regimen PT OT Incontinence care 04/24/20: Monitor BP Fall risk BM regimen 04/25/20: No med changes Pain controlled 04/26/2020: Pain management Bowel regimen with suppository every 48 hours Continue intensive therapy 04/27/2020: Aggressive therapy Incontinence care Pain control 04/28/20: Monitor closely Periarea powder Monitor pain Check labs in am 04/29/20: Labs reviewed Monitor pain issues 04/30/20: Continue therapy Needs dispo 05/01/20: DC to NH at DC Monitor closely Pain continues and difficult to ascertain due to expressive aphasia 05/02/20: Pain control Incontinence care Needs NH placement 05/04/20: Monitor BM Needs NH 05/05/20: Incontinence care 05/06/20: Await NHP Labs normal 05/07/20: DC to NH once accepted 05/08/20: Monitor closely 05/09/20: Monitor pain NHP 05/10/20: [facility] qamar care requested for DC 05/11/20: Maintain pain control Monitor BP 05/12/20: Improved function slowly (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
[2020-05-12 08:23] VITALS: BP 115/74
[2020-05-12] MEDS: polyethylene glycoL POWDER 17 GM (MIRALAX) PACK PO SCH ×2 (08:24→20:31)
[2020-05-12] MEDS: SENNA W/DOCUSATE (SENOKOT S) TABLET PO SCH ×2 (08:24→20:32)
[2020-05-12] MEDS: SPIRONOLACTONE 25 MG (ALDACTONE) TAB PO SCH (08:25)
[2020-05-12] MEDS: BISOPROLOL 5 MG TAB (ZEBETA) PO SCH (08:25)
[2020-05-12] MEDS: DOCUSATE SODIUM 100 MG (COLACE) CAP PO SCH ×2 (08:25→20:30)
[2020-05-12] MEDS: ASPIRIN 81 MG CHEW (CHILDREN'S ASA) PO SCH (08:25)
[2020-05-12] MEDS: MICONAZOLE 2% POWDER (DESENEX AF) 90 GM TOP SCH ×2 (08:25→20:32)
[2020-05-12] MEDS: GABAPENTIN 400 MG (NEURONTIN) CAP PO SCH ×2 (08:25→20:29)
[2020-05-12] MEDS: APIXABAN 5 MG (ELIQUIS) TABLET PO SCH ×2 (08:25→20:29)
[2020-05-12] MEDS: DICLOFENAC 1% GEL 100 GM (VOLTAREN) TUBE TOP SCH ×4 (08:26→20:32)
[2020-05-12] MEDS: LACTULOSE SYRUP 10GM/15ML (ENULOSE) 30ML UDC PO PRN (16:22)
[2020-05-12 17:34] VITALS: BP 101/73
--- NOTE | 2020-05-12 19:18 | NUR ---
Bedside report received from MILY MARSHALL, assume care of pt
--- NOTE | 2020-05-12 20:05 | NUR ---
up to commode thinks he might have BM, takes 2 people to get up
--- NOTE | 2020-05-12 20:11 | NUR ---
back to bed, passed alot of flatus but no stool
--- NOTE | 2020-05-12 20:29 | NUR ---
refused Colace, Miralax & Senokot, asked if would take Dulcolax suppository but pt refused, c/o Rt sided pain, level 7/10 on numeric scale, Oxyir 5mg given, refused Voltaren & Desenex
--- NOTE | 2020-05-12 21:15 | NUR ---
Rates pain 4/10 on numeric scale
[2020-05-13 06:11] LABS: BASOPHILS % (AUTO) 0 % (0-10); EOSINOPHILS # (AUTO) 0.2 10^3/uL (0.0-0.3); EOSINOPHILS % (AUTO) 3 % (0-10); HEMATOCRIT 47 % (40-54); HEMOGLOBIN 15.6 g/dL (13.3-17.7); LYMPHOCYTES # (AUTO) 2.2 10^3/uL (1.0-4.0); LYMPHOCYTES % (AUTO) 28 % (12-44); MEAN CORPUSCULAR HEMOGLOBIN 30 pg (25-34); MEAN CORPUSCULAR HGB CONC 34 g/dL (32-36); MEAN CORPUSCULAR VOLUME 88 fL (80-99); MEAN PLATELET VOLUME 11.4 fL (9.0-12.2); MONOCYTES # (AUTO) 0.9 10^3/uL (0.0-1.0); MONOCYTES % (AUTO) 11 % (0-12); NEUTROPHILS # (AUTO) 4.5 10^3/uL (1.8-7.8); NEUTROPHILS % (AUTO) 58 % (42-75); PLATELET COUNT 169 10^3/uL (130-400); WHITE BLOOD COUNT 7.9 10^3/uL (4.3-11.0)
[2020-05-13 06:28] LABS: ALBUMIN 3.6 GM/DL (3.2-4.5); CHLORIDE 105 MMOL/L (98-107); POTASSIUM 4.1 MMOL/L (3.6-5.0); SODIUM 140 MMOL/L (135-145)
[2020-05-13 06:29] VITALS: BP 110/69
[2020-05-13 06:31] LABS: GLUCOSE 77 MG/DL (70-105); TOTAL PROTEIN 6.7 GM/DL (6.4-8.2)
[2020-05-13 06:32] LABS: CARBON DIOXIDE 26 MMOL/L (21-32)
[2020-05-13 06:33] LABS: BILIRUBIN,TOTAL 0.5 MG/DL (0.1-1.0)
[2020-05-13 06:34] LABS: ALKALINE PHOSPHATASE 131 U/L (40-136); CREATININE SERUM 0.87 MG/DL (0.60-1.30); GFR ESTIMATED > 60
[2020-05-13 06:35] LABS: BUN/CREATININE RATIO 16
[2020-05-13 06:37] LABS: ALANINE AMINOTRANSFERASE 139 U/L (0-55)
[2020-05-13] MEDS: SPIRONOLACTONE 25 MG (ALDACTONE) TAB PO SCH (07:58)
[2020-05-13] MEDS: APIXABAN 5 MG (ELIQUIS) TABLET PO SCH ×2 (07:58→21:50)
[2020-05-13] MEDS: BISOPROLOL 5 MG TAB (ZEBETA) PO SCH (07:59)
[2020-05-13] MEDS: SENNA W/DOCUSATE (SENOKOT S) TABLET PO SCH ×2 (07:59→21:50)
[2020-05-13] MEDS: GABAPENTIN 400 MG (NEURONTIN) CAP PO SCH ×2 (07:59→21:50)
[2020-05-13] MEDS: ASPIRIN 81 MG CHEW (CHILDREN'S ASA) PO SCH (07:59)
[2020-05-13] MEDS: DOCUSATE SODIUM 100 MG (COLACE) CAP PO SCH ×2 (08:03→21:51)
[2020-05-13] MEDS: MICONAZOLE 2% POWDER (DESENEX AF) 90 GM TOP SCH ×2 (08:03→21:52)
[2020-05-13] MEDS: polyethylene glycoL POWDER 17 GM (MIRALAX) PACK PO SCH ×2 (08:03→21:50)
[2020-05-13] MEDS: DICLOFENAC 1% GEL 100 GM (VOLTAREN) TUBE TOP SCH ×4 (08:03→21:52)
--- NOTE | 2020-05-13 10:25 | PM&R Progress Note ---
Subjective HPI/CC On Admission Date Seen by Provider: May 13, 2020 Time Seen by Provider: 10:30 Subjective/Events-last exam 05/13/20: Awaiting placement Labs ok 05/12/20: Awaiting placement 05/11/20: Monitor pain 05/10/20: NH did not accept patient after all 05/09/20: Awaiting NHP maybe tomorrow : No significant change Working pretty well with therapy Expressive aphasia makes it difficult to communicate 05/07/20: Suppository given due to no BM for four days Urinating in the urinal now Butt-paste maintained for skin protection 05/06/20: Pt doing pretty well Awaiting senior care placement Labs remain stable Overall doing well 05/05/20: No changes Right sided pain still present Awaiting placement in NH 05/04/20: No major issues BM yesterday no supp used 05/02/20: No major changes More alert today In chair today No BM for several days and refuses suppository 05/01/20: No major changes Refuses suppository Pain on the right side continues Incontinent Sister did family training and felt like he will need to go to a nursing facility [facility] was sent a referral 04/30/20: No major changes Laxatives were refused and he is having a BM every other day without the suppository Denies any significant new issues 04/29/20: Patient reports no major issues No pain reported Pain meds are helpful 04/28/20: Periarea red so will start antifungal powder No pain reported otherwise Incontinence will require 24/7 nursing care along with severe deficit 04/27/2020: Incontinence of both bowel and bladder are limitations Denies any significant new issues Pain is pretty well controlled on the right side for flaccidity muscle spasms 04/26/2020: Patient denies any pain Incontinence requires nursing care 14/12 Pain is pretty well controlled Expressive aphasia makes it difficult to communicate 04/25/20: No major issues Pain controlled Participation with PT 04/24/20: Pt doing pretty well Bowels move after suppository every 48 hrs Decreasing pain medication Decreasing Cozaar due to hypotension per cardiology 04/23/20: BM after suppository every 48hrs Gabapentin BID seems to be working pretty well Using Oxycodone when Gabapentin is not enough No falls 04/22/20: No major issues Expressive aphasia continues Bowels moved yesterday after suppository given every 48 hours 04/21/20: Suppository today and BM Incontinent of B/B Pain improved Does not need to increase Gabapentin 04/20/20: BM yesterday Pain improved Sleepy today Doing better Incontinence : Improve right sided nerve pain Xanax and pain pill helps him BM after suppository Q 48 hours Incontinent of B/B 04/18/20: BM 04/17/20 Eliquis causes blurry vision per sister so will inquire with Dr Gibson regarding Xarelto Incontinent 04/17/20: Bowels not moving so will initiate Dulcolax suppository every 48hrs after laxatives given and he is agreeable for that plan Denies any significant new issues Pain is getting much better with the Gabapentin twice daily and Oxycodone 04/16/20: Right-sided pain still so increased Gabapentin to 300 Mg BID Xanax will help too Oxycodone also helps 04/15/20: Gabapentin maintained Oxycodone maintained Confusion noted? 04/14/20: Monitoring BP Pain right side still present and will increase Gabapentin 04/13/20: Right arm and right leg pain and issue Oxycodone not really helping Nerve pain so will give Gabapentin 04/12/20: Severe pain on right side Oxycodone ordered Participating in therapies well No other pain Pt doing pretty well Expressive aphasia is an issue WBC is 12.4 CMP normal Consulting cardiology Overall doing very well Conferred with RN Checked meds and labs Reviewed therapy notes Review of Systems General: Fatigue, Malaise Objective Exam Vital Signs Vital Signs Date Time Temp Pulse Resp B/P (MAP) Pulse Ox O2 Delivery O2 Flow Rate FiO2 05/14/20 06:00 36.2 82 18 103/62 (76) 98 Room Air Capillary Refill : Less Than 3 Seconds General Appearance: No Apparent Distress, WD/WN, Chronically ill HEENT: PERRL/EOMI, Normal ENT Inspection, Pharynx Normal Neck: Full Range of Motion, Normal Inspection, Non Tender, Supple, Carotid Bruit Respiratory: Chest Non Tender, Lungs Clear, Normal Breath Sounds, No Accessory Muscle Use, No Respiratory Distress Cardiovascular: Regular Rate, Rhythm, No Edema, No Gallop, No JVD, No Murmur, Normal Peripheral Pulses Gastrointestinal: Normal Bowel Sounds, No Organomegaly, No Pulsatile Mass, Non Tender, Soft Back: Normal Inspection, No CVA Tenderness, No Vertebral Tenderness Extremity: Normal Capillary Refill, Normal Inspection, Normal Range of Motion, Non Tender, No Calf Tenderness, No Pedal Edema Neurologic/Psychiatric: Alert, Normal Mood/Affect, Abnormal Gait, Aphasia, De pressed Affect, Disoriented, Motor Weakness (right sided flaccidity) Skin: Normal Color, Warm/Dry Lymphatic: No Adenopathy Results/Procedures Lab Patient resulted labs reviewed. FIM Transfers Therapy Code Descriptions/Definitions Functional [place] Measure: 0=Not Assessed/NA 4=Minimal Assistance 1=Total Assistance 5=Supervision or Setup 2=Maximal Assistance 6=Modified [place] 3=Moderate Assistance 7=Complete IndependenceSCALE: Activities may be completed with or without assistive devices. 5-Cljkfpeqwy-ydyyjnz completes the activity by him/herself with no assistance from a helper. 5-Set-up or Clean-up Assistance-helper sets up or cleans up; patient completes activity. [place] assists only prior to or following the activity. 4-Supervision or Touching Assistance-helper provides verbal cues and/or t ouching/steadying and/or contact guard assistance as patient completes activity. Assistance may be provided throughout the activity or intermittently. 3-Partial/Moderate Assistance-helper does LESS THAN HALF the effort. [place] lifts, holds or supports trunk or limbs, but provides less than half the effort. 2-Substantial/Maximal Assistance-helper does MORE THAN HALF the effort. [place] lifts or holds trunk or limbs and provides more than half the effort. 0-Lfbgwsdlq-uxmxeu does ALL the effort. Patient does none of the effort to complete the activity. Or, the assistance of 2 or more helpers is required for the patient to complete the activity. If activity was not attempted, code reason: 7-Patient Refused. 9-Not Applicable-not attempted and the patient did not perform the activity before the current illness, exacerbation or injury. 10-Not Attempted due to Environmental Limitations-(lack of equipment, weather restraints, etc.). 88-Not Attempted due to Medical Conditions or Safety Concerns. Roll Left to Right (QC): 4 (rolling to left only) Sit to Lying (QC): 6 Sit to Stand (QC): 4 Chair/Spx-bo-Xmjhc Xfer(QC): 4 Car Transfer (QC): 4 Gait Training Does the Patient Walk?: Yes Distance: 20'x3 Walk 10 feet (QC): 3 Walk 50 ft with 2 Turns(QC): 88 Walk 150 ft (QC): 88 Walking 10ft/uneven surface-QC: 88 Gait Persons Needed: 2 Gait Assistive Device: Walker Jose Wheelchair Training Does the Pt Use a Wheelchair?: Yes Wheel 50 ft with 2 turns (QC): 6 Wheel 150 ft (QC): 6 Type of Wheelchair: Manual Stair Training 1 Step (curb) (QC): 9 4 Steps (QC): 9 12 Steps (QC): 9 Balance Picking up an Object (QC): 88 ADL-Treatment Eating (QC): 6 Oral Hygiene (QC): 6 (completes in w/c at sink level.) Bathing Location: L Arm, R Arm, L Upper Leg, R Upper Leg, L Lower Leg (including foot), R Lower Leg (including foot), Chest, Abdomen, Perineal Area Shower/Bathe Self (QC): 3 (min A (bottom in stance) OT places w/c in front of bed and pt utilizes to stabilize during bottom cleansing/ LB dressing hiking. ) Upper Body Dressing (QC): 3 (min A for orientation of shirt/ R side.) Lower Body Dressing (QC): 3 (min A this date as Ax1. Pt threads with cues, c ompletes BLE and stands perpendicular to bed, hiking pants with min A to right due to balance) On/Off Footwear (QC): 3 (min A, use of dycem to stabilize R foot during task. 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 Defib in place Cardiomyopathy HTN Plan: Monitor dysphagia Cardiology consultation IRF protocol 04/11/20: Monitor BP Appreciate Cardiology 04/12/20: Monitor closely Pain management 04/13/20: Gabapentin Oxycodone 04/14/20: Increase Gabapentin Oxycodone BM regimen to increase today may need supp 04/15/20: BM++ Monitor pain of right side 04/16/20: Increase dose of Neurontin Maintain aggressive rehab 04/17/20: BM regimen to include supp Q48 hrs Monitor pain Monitor BP 04/18/20: Increased Gabpentin some more today BM regimen 04/19/20: Manage incontinence Right arm and right leg pain management 04/20/20: Maintain pain control Incontinence management BM regimen 04/21/20: Suppository [id number] Monitor closely Pain control 04/22/20: Continue BM regimen Monitor right sided pain 04/23/20: BM regimen PT OT Incontinence care 04/24/20: Monitor BP Fall risk BM regimen 04/25/20: No med changes Pain controlled 04/26/2020: Pain management Bowel regimen with suppository every 48 hours Continue intensive therapy 04/27/2020: Aggressive therapy Incontinence care Pain control 04/28/20: Monitor closely Periarea powder Monitor pain Check labs in am 04/29/20: Labs reviewed Monitor pain issues 04/30/20: Continue therapy Needs dispo 05/01/20: DC to NH at DC Monitor closely Pain continues and difficult to ascertain due to expressive aphasia 05/02/20: Pain control Incontinence care Needs NH placement 05/04/20: Monitor BM Needs NH 05/05/20: Incontinence care 05/06/20: Await NHP Labs normal 05/07/20: DC to NH once accepted 05/08/20: Monitor closely 05/09/20: Monitor pain NHP 05/10/20: VCV qamar care requested for DC 05/11/20: Maintain pain control Monitor BP 05/12/20: Improved function slowly 05/13/20: Monitor BP (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
--- NOTE | 2020-05-13 11:01 | Physical Therapy Daily Note ---
PT Daily Note-Current Subjective Pt. in bed, agrees to Rx, expressed some disappointment at not knowing when or where his DC might be. Pain Location: No Pain Reported Mental Status Patient Orientation: Non-Verbal/Aphasic Attachments: Other-See Comments (mask out of room) Transfers SCALE: Activities may be completed with or without assistive devices. 4-Toknadbxzj-zocxbkr completes the activity by him/herself with no assistance from a helper. 5-Set-up or Clean-up Assistance-helper sets up or cleans up; patient completes activity. [place] assists only prior to or following the activity. 4-Supervision or Touching Assistance-helper provides verbal cues and/or touching/steadying and/or contact guard assistance as patient completes activity. Assistance may be provided throughout the activity or intermittently. 3-Partial/Moderate Assistance-helper does LESS THAN HALF the effort. [place] lifts, holds or supports trunk or limbs, but provides less than half the effort. 2-Substantial/Maximal Assistance-helper does MORE THAN HALF the effort. [place] lifts or holds trunk or limbs and provides more than half the effort. 2-Mbqobggjh-zoznhd does ALL the effort. Patient does none of the effort to complete the activity. Or, the assistance of 2 or more helpers is required for the patient to complete the activity. If activity was not attempted, code reason: 7-Patient Refused. 9-Not Applicable-not attempted and the patient did not perform the activity before the current illness, exacerbation or injury. 10-Not Attempted due to Environmental Limitations-(lack of equipment, weather restraints, etc.). 88-Not Attempted due to Medical Conditions or Safety Concerns. Sit to Lying (QC): 6 Lying to Sitting/Side of Bed(Q: 6 Sit to Stand (QC): 4 Chair/Pmp-vn-Faycd Xfer(QC): 4 Toilet Transfer (QC): 4 emphasis this Rx on bathroom toilet TRF w/c to toilet utilizing bar on wall. Pt. able to stand CGA, stand indep while therapist pulls pants down, toilet, stand with CGA while therapist cleans and pulls clothing up then TRF back to w/c CGA to min assist. this was practiced multiple trials with good success. Weight Bearing Full Weight Bearing Full Weight Bearing Wheelchair Training Does the Pt Use a Wheelchair?: Yes Wheel 50 ft with 2 turns (QC): 6 Wheel 150 ft (QC): 6 Type of Wheelchair: Manual pt. occas needs reminder to brake w/c. added to w/c training this date was swinging leg rest in and out , pushing foot rest up down and pushing the wheel of the w/c out of the foot path prior to w/c to bed TRF to clear the path Exercises Supine Ex: Bridging, Ankle pumps, Quad Set, Rolling, Glut sets, Heel Slides, Short Arc Quads, Scooting, Straight leg raise, Hip abd/add Supine Reps: 15 Treatments trace to 1 noted right quads, passive /assistive ROM on RLE Assessment Current Status: Good Progress pt. appears a little depressed today, seemed encouraged after Rx that he was able to manage in toileting situation with assist of only one PT Short Term Goals Short Term Goals Time Frame: Apr 18, 2020 Roll Left & Right: 3 Sit to lyin Lying to sitting on side of be: 3 Sit to stand: 3 Chair/jyv-jh-mbqqn transfer: 3 PT Mcfp Goals Fourdrinier Operator Goals PT Fourdrinier Operator Goals Time Frame: May 02, 2020 Roll Left & Right (QC): 4 Sit to Lying (QC): 4 Lying-Sitting on Side/Bed(QC): 4 Sit to Stand (QC): 3 (Zoya) Chair/Owq-un-Wezra Xfer(QC): 3 (Zoya) Toilet Transfer (QC): 3 (Zoya) Car Transfer (QC): 3 (Zoya) Does the Patient Walk: No and Walking Goal NOT indicated Walk 10 feet (QC): 88 Walk 50ft with 2 Turns (QC): 88 Walk 150 ft (QC): 88 Walking 10ft on Uneven Surface: 88 1 Step (curb) (QC): 88 4 Steps (QC): 88 12 Steps (QC): 88 Picking up an Object (QC): 88 Wheel 50 feet with 2 turns (QC: 4 Wheel 150 feet: 4 PT Plan Treatment/Plan Treatment Plan: Continue Plan of Care Treatment Plan: Bed Mobility, Education, Functional Activity [place], Functional Strength, Group Therapy, Gait, Safety, Therapeutic Exercise, Transfers Treatment Duration: May 01, 2020 Frequency: At least 5 of 7 days/Wk (IRF) Estimated Hrs Per Day: 1.5 hours per day Patient and/or Family Agrees t: Yes Safety Risks/Education Patient Education: Transfer Techniques, Correct Positioning, W/C Management, Disease Process, Safety Issues Teaching Recipient: Patient Teaching Methods: Demonstration, Discussion Response to Teaching: Verbalize Understanding, Return Demonstration, Reinforcement Needed occas needs repeated instruction for task and reminders during Time/GCodes Time In: 1000 Time Out: 1100 Total Billed Treatment Time: 60 Total Billed Treatment 1,w/c15m,FA30m,EX15m ZAIRA GALEANA SENIOR PROCESS ENGINEER May 13, 2020 11:01
--- NOTE | 2020-05-13 11:56 | Speech Therapy Daily Note ---
Speech Daily Progress Note Subjective Date Seen by Provider: May 13, 2020 Time Seen by Provider: 00:30 Patient was sleeping in his bed when I entered his room. Objective Patient completed general information questions with 40% accuracy and "I'm not sure" for the other answers with max cues/repetitions. Assessment Assessment Current Status: Fair Progress Treatment Plan Continue Plan of Care Speech Short Term Goals Short Term Goals Short Term Goals 1) The patient will complete OME for improved speech production at each session with 80% or greater accuracy. 2) The patient will complete word finding tasks with 80% or greater accuracy. 3) The patient will complete expressive language tasks 80% or greater accuracy. 4) The patient will tolerate least restrictive diet level without s/s of aspiration at 80% or greater accuracy. 5) The patient will utilize compensatory strategies as trained 80% or greater accuracy. Speech Sox Analyst Goals Sox Analyst Goals Patient will improve cognitive-communication abilities for completion of daily needs with minimal assist. Patient will maintain adequate nutrition/hydration via safe effective swallow function. Speech-Plan Patient/Family Goals Patient/Family Goals: Patient will discharge to a SNF when the details for admission are complete. 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
--- NOTE | 2020-05-13 13:52 | Physical Therapy Daily Note ---
PT Daily Note-Current Subjective Pt. agreeable to Rx. Pain Location: No Pain Reported Mental Status Patient Orientation: Non-Verbal/Aphasic Attachments: Other-See Comments Transfers SCALE: Activities may be completed with or without assistive devices. 9-Tlzfyzdbeu-vbmxamn completes the activity by him/herself with no assistance from a helper. 5-Set-up or Clean-up Assistance-helper sets up or cleans up; patient completes activity. [place] assists only prior to or following the activity. 4-Supervision or Touching Assistance-helper provides verbal cues and/or touching/steadying and/or contact guard assistance as patient completes activity. Assistance may be provided throughout the activity or intermittently. 3-Partial/Moderate Assistance-helper does LESS THAN HALF the effort. [place] lifts, holds or supports trunk or limbs, but provides less than half the effort. 2-Substantial/Maximal Assistance-helper does MORE THAN HALF the effort. [place] lifts or holds trunk or limbs and provides more than half the effort. 2-Pitetezye-ixouls does ALL the effort. Patient does none of the effort to c omplete the activity. Or, the assistance of 2 or more helpers is required for the patient to complete the activity. If activity was not attempted, code reason: 7-Patient Refused. 9-Not Applicable-not attempted and the patient did not perform the activity before the current illness, exacerbation or injury. 10-Not Attempted due to Environmental Limitations-(lack of equipment, weather restraints, etc.). 88-Not Attempted due to Medical Conditions or Safety Concerns. SPTs toward left in out w/c x 4, SPTs w/c to toilet x2 utilizing railing in bathroom . Pt. is able to do bthrm TRF with assist of only 1 for SPT, pants up down and cleaning assist Weight Bearing Full Weight Bearing Full Weight Bearing Wheelchair Training Does the Pt Use a Wheelchair?: Yes 25ft x 3 with instruction for braking and turning efficiently, pt improving with w/c control and equip etc Treatments SPT training w/c , toilet and recliner Assessment Current Status: Good Progress PT Short Term Goals Short Term Goals Time Frame: Apr 18, 2020 Roll Left & Right: 3 Sit to lyin Lying to sitting on side of be: 3 Sit to stand: 3 Chair/yod-mr-wdctt transfer: 3 PT Care Home Goals Senior Software Engineer [employer] Goals PT Care Home Goals Time Frame: May 02, 2020 Roll Left & Right (QC): 4 Sit to Lying (QC): 4 Lying-Sitting on Side/Bed(QC): 4 Sit to Stand (QC): 3 (Zoya) Chair/Xtm-rv-Njdsi Xfer(QC): 3 (Zoya) Toilet Transfer (QC): 3 (Zoya) Car Transfer (QC): 3 (Zoya) Does the Patient Walk: No and Walking Goal NOT indicated Walk 10 feet (QC): 88 Walk 50ft with 2 Turns (QC): 88 Walk 150 ft (QC): 88 Walking 10ft on Uneven Surface: 88 1 Step (curb) (QC): 88 4 Steps (QC): 88 12 Steps (QC): 88 Picking up an Object (QC): 88 Wheel 50 feet with 2 turns (QC: 4 Wheel 150 feet: 4 PT Plan Treatment/Plan Treatment Plan: Continue Plan of Care Treatment Plan: Bed Mobility, Education, Functional Activity [place], Functional Strength, Group Therapy, Gait, Safety, Therapeutic Exercise, Transfers Treatment Duration: May 01, 2020 Frequency: At least 5 of 7 days/Wk (IRF) Estimated Hrs Per Day: 1.5 hours per day Patient and/or Family Agrees t: Yes Safety Risks/Education Patient Education: Transfer Techniques, Correct Positioning, W/C Management, Safety Issues Teaching Recipient: Patient Teaching Methods: Demonstration, Discussion Response to Teaching: Return Demonstration, Reinforcement Needed Time/GCodes Time In: 1335 Time Out: 1350 Total Billed Treatment Time: 15 Total Billed Treatment 1.FA 15m ZAIRA GALEANA CAR DEALER May 13, 2020 13:52
--- NOTE | 2020-05-13 14:25 | Occupational Ther Daily Note ---
OT Current Status-Daily Note Subjective No pain reported. Appearance Pt. up in chair after working with PT. Agrees to work with OT. Mental Status/Objective Patient Orientation: Person ADL-Treatment Therapy Code Descriptions/Definitions Functional [place] Measure: 0=Not Assessed/NA 4=Minimal Assistance 1=Total Assistance 5=Supervision or Setup 2=Maximal Assistance 6=Modified [place] 3=Moderate Assistance 7=Complete IndependenceSCALE: Activities may be completed with or without assistive devices. 4-Mfouuspwmg-kgydkbr completes the activity by him/herself with no assistance from a helper. 5-Set-up or Clean-up Assistance-helper sets up or cleans up; patient completes activity. [place] assists only prior to or following the activity. 4-Supervision or Touching Assistance-helper provides verbal cues and/or touching/steadying and/or contact guard assistance as patient completes activity. Assistance may be provided throughout the activity or intermittently. 3-Partial/Moderate Assistance-helper does LESS THAN HALF the effort. [place] lifts, holds or supports trunk or limbs, but provides less than half the effort. 2-Substantial/Maximal Assistance-helper does MORE THAN HALF the effort. [place] lifts or holds trunk or limbs and provides more than half the effort. 9-Shqdqbucj-nrsxvs does ALL the effort. Patient does none of the effort to complete the activity. Or, the assistance of 2 or more helpers is required for the patient to complete the activity. If activity was not attempted, code reason: 7-Patient Refused. 9-Not Applicable-not attempted and the patient did not perform the activity before the current illness, exacerbation or injury. 10-Not Attempted due to Environmental Limitations-(lack of equipment, weather restraints, etc.). 88-Not Attempted due to Medical Conditions or Safety Concerns. Oral Hygiene (QC): 4 (SBA and cues.) Other Treatment Pt. up in chair. He is already dressed with PT assist for their treatment. Pt. agrees to shave/brush teeth. Pt. is able to transfer to wheelchair with min assist, and then propel to bathroom sink. Pt. requires assistance putting shave foam in hand, but then is able to place in appropriate area on face. Pt. shaves face after set up, with no further cues. Pt. places bottom of toothpaste in mouth so that he can unscrew cap. Once cap is off, he attempts multiple times to squeeze paste onto brush while brush is sitting face up on sink. Pt. is encouraged to squeeze some paste into his mouth, but he continues in other method until he is able to get paste on the brush. Pt. brushes teeth with SBA and increased time. Pt. then self propels to therapy gym. Attempted different visual motor/spatial activities with pt., but pt. indicates that he can't tell colors well. When OT asks if pt. is color blind, he is unable to answer. Therefore, these tasks are unable to be performed with pt. to determine certain visual processing skills. OT provided gentle PROM to right UE, including scapular glides and joint compressions. Pt. tolerates this well and indicates that this feels good. No active movement noted in right UE. Pt. stood at tabletop with assist for upright posture and to place right hand onto table to weight bear through. Attempted weight shifting side to side but pt has difficulty keeping right knee extended. Propelled back to room and transferred to chair with min assist. All needs met. Education OT Patient Education: Correct positioning, Exercise program, Modified ADL techniques, Progress toward Goal/Update tx plan, Purpose of tx/functional activities, Reviewed precautions, Rehab process, Transfer techniques Teaching Recipient: Patient Teaching Methods: Demonstration, Discussion Response to Teaching: Verbalize Understanding, Return Demonstration, Reinforcement Needed OT Short Term Goals Short Term Goals Eatin Oral hygiene: 5 Toileting hygiene: 2 Shower/bathe self: 2 Upper body dressin Lower body dressin Putting on/taking off footwear: 2 OT Nursing Home Goals Nursing Home Goals Time Frame: May 29, 2020 Eating (QC): 6 Oral Hygiene (QC): 6 Toileting Hygiene (QC): 3 Shower/Bathe Self (QC): 5 Upper Body Dressing (QC): 6 Lower Body Dressing (QC): 3 On/Off Footwear (QC): 6 Additional Goals: 1-Demonstrate ADL Tasks, 2-Verbalize Understanding, 3- ImproveStrength/[place]wick 1=Demonstrate adherence to instructed precautions during ADL tasks. 2=Patient will verbalize/demonstrate understanding of assistive devices/modifications for ADL. 3=Patient will improve strength/tolerance for activity to enable patient to perform ADL's. OT Education/Plan Problem List/Assessment Assessment: Decreased Activ Tolerance, Decreased UE Strength, Dependent Transfers, Impaired Cognition, Impaired Coordination, Impaired Funct Balance, Impaired I ADL's, Impaired Self-Care Skills, Restricted Funct UE ROM, Visual-Perceptual Deficit Discharge Recommendations Plan/Recommendations: Continue POC Therapy Discharge Recommendati: Post Acute OT Treatment Plan/Plan of Care Treatment,Training & Education: Yes Patient would benefit from OT for education, treatment and training to promote independence in ADL's, mobility, safety and/or upper extremity function for ADL's. Plan of Care: ADL Retraining, Caregiver Training, Concurrent Therapy, Functional Mobility, Group Exercise/Act as Ind, Orthotic Fitting/Training, UE Funct Exercise/Act, UE Neuromus Re-Ed/Coord, Visual/Perceptual Retrain, W/C Management Training Treatment Duration: Apr 24, 2020 Frequency: At least 5 of 7 days/Wk (IRF) Estimated Hrs Per Day: 1.5 hours per day Agreement: Yes Rehab Potential: Fair Time/GCodes Start Time: 11:00 Stop Time: 12:15 Total Time Billed (hr/min): 75 Billed Treatment Time 1, ADL x 30minutes, FA x 45minutes SEDA MEDEL OT May 13, 2020 14:25
[2020-05-13 17:27] VITALS: BP 106/72
[2020-05-14 06:00] VITALS: BP 103/62
[2020-05-14] MEDS: SENNA W/DOCUSATE (SENOKOT S) TABLET PO SCH ×2 (07:33→20:37)
[2020-05-14] MEDS: BISOPROLOL 5 MG TAB (ZEBETA) PO SCH (07:33)
[2020-05-14] MEDS: ASPIRIN 81 MG CHEW (CHILDREN'S ASA) PO SCH (07:33)
[2020-05-14] MEDS: SPIRONOLACTONE 25 MG (ALDACTONE) TAB PO SCH (07:33)
[2020-05-14] MEDS: GABAPENTIN 400 MG (NEURONTIN) CAP PO SCH ×2 (07:33→20:37)
[2020-05-14] MEDS: MICONAZOLE 2% POWDER (DESENEX AF) 90 GM TOP SCH ×2 (07:34→20:39)
[2020-05-14] MEDS: DOCUSATE SODIUM 100 MG (COLACE) CAP PO SCH ×2 (07:34→20:37)
[2020-05-14] MEDS: DICLOFENAC 1% GEL 100 GM (VOLTAREN) TUBE TOP SCH ×4 (07:34→20:42)
[2020-05-14] MEDS: APIXABAN 5 MG (ELIQUIS) TABLET PO SCH ×2 (07:34→20:37)
[2020-05-14] MEDS: polyethylene glycoL POWDER 17 GM (MIRALAX) PACK PO SCH ×2 (07:34→20:37)
--- NOTE | 2020-05-14 09:03 | Occupational Ther Daily Note ---
OT Current Status-Daily Note Subjective Pt alert upon entry. Denies pain, later states pain in shoulder but denies notifying nursing at that time. Pt agrees to showering. OT individual tx. ADL-Treatment Therapy Code Descriptions/Definitions Functional [place] Measure: 0=Not Assessed/NA 4=Minimal Assistance 1=Total Assistance 5=Supervision or Setup 2=Maximal Assistance 6=Modified [place] 3=Moderate Assistance 7=Complete IndependenceSCALE: Activities may be completed with or without assistive devices. 3-Oiqzmdcxnt-nzudimb completes the activity by him/herself with no assistance from a helper. 5-Set-up or Clean-up Assistance-helper sets up or cleans up; patient completes activity. [place] assists only prior to or following the activity. 4-Supervision or Touching Assistance-helper provides verbal cues and/or touching/steadying and/or contact guard assistance as patient completes activity. Assistance may be provided throughout the activity or intermittently. 3-Partial/Moderate Assistance-helper does LESS THAN HALF the effort. [place] lifts, holds or supports trunk or limbs, but provides less than half the effort. 2-Substantial/Maximal Assistance-helper does MORE THAN HALF the effort. [place] lifts or holds trunk or limbs and provides more than half the effort. 5-Jxxjjdqkv-xwfrdu does ALL the effort. Patient does none of the effort to complete the activity. Or, the assistance of 2 or more helpers is required for the patient to complete the activity. If activity was not attempted, code reason: 7-Patient Refused. 9-Not Applicable-not attempted and the patient did not perform the activity before the current illness, exacerbation or injury. 10-Not Attempted due to Environmental Limitations-(lack of equipment, weather restraints, etc.). 88-Not Attempted due to Medical Conditions or Safety Concerns. Eating (QC): 6 Oral Hygiene (QC): 6 (increased time in front of sink, completes all tasks with IND utilizing adaptive technqiues.) Bathing Location: L Arm, R Arm, L Upper Leg, R Upper Leg, L Lower Leg (including foot), R Lower Leg (including foot), Chest, Abdomen, Buttocks, Perineal Area Shower/Bathe Self (QC): 4 (CGA during bending tasks. Pt completes all areas with SBA-CGA in sc in shower room. ) Upper Body Dressing (QC): 3 (min A RUE) Lower Body Dressing (QC): 3 (min A righting in stance. Pt able to thread BLE in chair with min cues for orientation of clothing. Sit to stand CGA, min A righting next to bed, completes hike over hips without assist.) On/Off Footwear: 3 (min A sock donning RLE) Toileting Hygiene (QC): 4 (SBA on sc during bottom care.) Toilet Transfer (QC): 4 (CGA for sit to stand at [facility], w/c switched with sc for showering with CGA.) Other Treatment Pt bed mob with min A to sit upright. SPT to strong/ L side with CGA. Pt propels self to shower room with cues for directionality. Pt stands at [facility] with CGA/ w/c is switched with sc. Completes showering/ UB dressing in shower room as outline d. Pt propels self to room, mod cues for directionality/ room number. Pt completes threading of BLE with use of dycem for RLE assist in w/c. Sit to stand to raised bedside with CGA/ dons as outlined with min A. Pt requires cues for stance/ safe and controlled sitting. Pt propels self to bathroom sink, oral care IND. Pt stands at raised bedside 2x with cues to place abdomen upon bedside for increased support during LB dressing hike over hips. Pt attempts 5x, 2 stances with ~15-30 sec stance each. Pt states pain in R arm upon attempted stance. pt denies pain meds or sling, though when questioned agrees to allow OT to support while sit to standing. Pt SPT with CGA to L side to recliner. Pt able to manage RLE/ footrest through session with minimal cueing. All needs met, call light in reach, RLE propped. Education OT Patient Education: Correct positioning, Exercise program, Modified ADL techniques, Progress toward Goal/Update tx plan, Purpose of tx/functional activities, Safety issues, Transfer techniques Teaching Recipient: Patient Teaching Methods: Demonstration, Discussion Response to Teaching: Verbalize Understanding, Return Demonstration, Reinforcement Needed OT Short Term Goals Short Term Goals Eatin Oral hygiene: 5 Toileting hygiene: 2 Shower/bathe self: 2 Upper body dressin Lower body dressin Putting on/taking off footwear: 2 OT Warehouse Unloader Goals Warehouse Unloader Goals Time Frame: May 29, 2020 Eating (QC): 6 Oral Hygiene (QC): 6 Toileting Hygiene (QC): 3 Shower/Bathe Self (QC): 5 Upper Body Dressing (QC): 6 Lower Body Dressing (QC): 3 On/Off Footwear (QC): 6 Additional Goals: 1-Demonstrate ADL Tasks, 2-Verbalize Understanding, 3-ImproveStrength/[place]wick 1=Demonstrate adherence to instructed precautions during ADL tasks. 2=Patient will verbalize/demonstrate understanding of assistive devices/modifications for ADL. 3=Patient will improve strength/tolerance for activity to enable patient to perform ADL's. OT Education/Plan Problem List/Assessment Assessment: Decreased Activ Tolerance, Decreased UE Strength, Dependent Transfers Discharge Recommendations Plan/Recommendations: Continue POC Therapy Discharge Recommendati: 24 Hour Supervision, Post Acute OT Treatment Plan/Plan of Care Treatment,Training & Education: Yes Patient would benefit from OT for education, treatment and training to promote independence in ADL's, mobility, safety and/or upper extremity function for ADL's. Plan of Care: ADL Retraining, Caregiver Training, Concurrent Therapy, Functional Mobility, Group Exercise/Act as Ind, Orthotic Fitting/Training, UE Funct Exercise/Act, UE Neuromus Re-Ed/Coord, Visual/Perceptual Retrain, W/C Management Training Treatment Duration: Apr 24, 2020 Frequency: At least 5 of 7 days/Wk (IRF) Estimated Hrs Per Day: 1.5 hours per day Agreement: Yes Rehab Potential: Fair Time/GCodes Start Time: 07:45 Stop Time: 09:00 Total Time Billed (hr/min): 75 Billed Treatment Time 1, ADL 4 (60), EX (15)= 75 FATIMAH KERNS OTR May 14, 2020 09:03
--- NOTE | 2020-05-14 10:15 | PM&R Progress Note ---
Subjective HPI/CC On Admission Date Seen by Provider: May 14, 2020 Time Seen by Provider: 10:30 Subjective/Events-last exam 05/14/20: Pt is talking better Saw pt in the gym Lungs remain clear No new issues Awaiting placement Improved speech 05/13/20: Awaiting placement Labs ok 05/12/20: Awaiting placement 05/11/20: Monitor pain 05/10/20: NH did not accept patient after all 05/09/20: Awaiting NHP maybe tomorrow : No significant change Working pretty well with therapy Expressive aphasia makes it difficult to communicate 05/07/20: Suppository given due to no BM for four days Urinating in the urinal now Butt-paste maintained for skin protection 05/06/20: Pt doing pretty well Awaiting assisted placement Labs remain stable Overall doing well 05/05/20: No changes Right sided pain still present Awaiting placement in NH 05/04/20: No major issues BM yesterday no supp used 05/02/20: No major changes More alert today In chair today No BM for several days and refuses suppository 05/01/20: No major changes Refuses suppository Pain on the right side continues Incontinent Sister did family training and felt like he will need to go to a nursing facility [facility] [place] was sent a referral 04/30/20: No major changes Laxatives were refused and he is having a BM every other day without the suppository Denies any significant new issues 04/29/20: Patient reports no major issues No pain reported Pain meds are helpful 04/28/20: Periarea red so will start antifungal powder No pain reported otherwise Incontinence will require 24 nursing care along with severe deficit 04/27/2020: Incontinence of both bowel and bladder are limitations Denies any significant new issues Pain is pretty well controlled on the right side for flaccidity muscle spasms 04/26/2020: Patient denies any pain Incontinence requires nursing care 14/12 Pain is pretty well controlled Expressive aphasia makes it difficult to communicate 04/25/20: No major issues Pain controlled Participation with PT 04/24/20: Pt doing pretty well Bowels move after suppository every 48 hrs Decreasing pain medication Decreasing Cozaar due to hypotension per cardiology 04/23/20: BM after suppository every 48hrs Gabapentin BID seems to be working pretty well Using Oxycodone when Gabapentin is not enough No falls 04/22/20: No major issues Expressive aphasia continues Bowels moved yesterday after suppository given every 48 hours 04/21/20: Suppository today and BM Incontinent of B/B Pain improved Does not need to increase Gabapentin 04/20/20: BM yesterday Pain improved Sleepy today Doing better Incontinence : Improve right sided nerve pain Xanax and pain pill helps him BM after suppository Q 48 hours Incontinent of B/B 04/18/20: BM 04/17/20 Eliquis causes blurry vision per sister so will inquire with Dr Gibosn regarding Xarelto Incontinent 04/17/20: Bowels not moving so will initiate Dulcolax suppository every 48hrs after laxatives given and he is agreeable for that plan Denies any significant new issues Pain is getting much better with the Gabapentin twice daily and Oxycodone 04/16/20: Right-sided pain still so increased Gabapentin to 300 Mg BID Xanax will help too Oxycodone also helps 04/15/20: Gabapentin maintained Oxycodone maintained Confusion noted? 04/14/20: Monitoring BP Pain right side still present and will increase Gabapentin 04/13/20: Right arm and right leg pain and issue Oxycodone not really helping Nerve pain so will give Gabapentin 04/12/20: Severe pain on right side Oxycodone ordered Participating in therapies well No other pain Pt doing pretty well Expressive aphasia is an issue WBC is 12.4 CMP normal Consulting cardiology Overall doing very well Conferred with RN Checked meds and labs Reviewed therapy notes Review of Systems Neurological: Weakness, Incoordination Objective Exam Vital Signs Vital Signs Date Time Temp Pulse Resp B/P (MAP) Pulse Ox O2 Delivery O2 Flow Rate FiO2 05/15/20 05:57 36.2 81 16 101/58 (72) 96 Room Air Capillary Refill : Less Than 3 Seconds General Appearance: No Apparent Distress, WD/WN, Chronically ill HEENT: PERRL/EOMI, Normal ENT Inspection, Pharynx Normal Neck: Full Range of Motion, Normal Inspection, Non Tender, Supple, Carotid Bruit Respiratory: Chest Non Tender, Lungs Clear, Normal Breath Sounds, No Accessory Muscle Use, No Respiratory Distress Cardiovascular: Regular Rate, Rhythm, No Edema, No Gallop, No JVD, No Murmur, Normal Peripheral Pulses Gastrointestinal: Normal Bowel Sounds, No Organomegaly, No Pulsatile Mass, Non Tender, Soft Back: Normal Inspection, No CVA Tenderness, No Vertebral Tenderness Extremity: Normal Capillary Refill, Normal Inspection, Normal Range of Motion, Non Tender, No Calf Tenderness, No Pedal Edema Neurologic/Psychiatric: Alert, Normal Mood/Affect, Abnormal Gait, Aphasia, Depressed Affect, Disoriented, Motor Weakness (right sided flaccidity) Skin: Normal Color, Warm/Dry Lymphatic: No Adenopathy Results/Procedures Lab Patient resulted labs reviewed. FIM Transfers Therapy Code Descriptions/Definitions Functional [place] Measure: 0=Not Assessed/NA 4=Minimal Assistance 1=Total Assistance 5=Supervision or Setup 2=Maximal Assistance 6=Modified [place] 3=Moderate Assistance 7=Complete IndependenceSCALE: Activities may be completed with or without assistive devices. 1-Cksdfcwkvb-jdzuelo completes the activity by him/herself with no assistance from a helper. 5-Set-up or Clean-up Assistance-helper sets up or cleans up; patient completes activity. [place] assists only prior to or following the activity. 4-Supervision or Touching Assistance-helper provides verbal cues and/or touching/steadying and/or contact guard assistance as patient completes activity. Assistance may be provided throughout the activity or intermittently. 3-Partial/Moderate Assistance-helper does LESS THAN HALF the effort. [place] lifts, holds or supports trunk or limbs, but provides less than half the effort. 2-Substantial/Maximal Assistance-helper does MORE THAN HALF the effort. [place] lifts or holds trunk or limbs and provides more than half the effort. 7-Umfkrfqgl-mrbxtk does ALL the effort. Patient does none of the effort to complete the activity. Or, the assistance of 2 or more helpers is required for the patient to complete the activity. If activity was not attempted, code reason: 7-Patient Refused. 9-Not Applicable-not attempted and the patient did not perform the activity before the current illness, exacerbation or injury. 10-Not Attempted due to Environmental Limitations-(lack of equipment, weather restraints, etc.). 88-Not Attempted due to Medical Conditions or Safety Concerns. Roll Left to Right (QC): 4 (rolling to left only) Sit to Lying (QC): 6 Sit to Stand (QC): 4 Chair/Icq-qk-Wjxui Xfer(QC): 4 Car Transfer (QC): 4 Gait Training Does the Patient Walk?: Yes Distance: 20'x3 Walk 10 feet (QC): 3 Walk 50 ft with 2 Turns(QC): 88 Walk 150 ft (QC): 88 Walking 10ft/uneven surface-QC: 88 Gait Persons Needed: 2 Gait Assistive Device: Walker Jose Wheelchair Training Does the Pt Use a Wheelchair?: Yes Wheel 50 ft with 2 turns (QC): 6 Wheel 150 ft (QC): 6 Type of Wheelchair: Manual Stair Training 1 Step (curb) (QC): 9 4 Steps (QC): 9 12 Steps (QC): 9 Balance Picking up an Object (QC): 88 ADL-Treatment Eating (QC): 6 Oral Hygiene (QC): 6 (increased time in front of sink, completes all tasks with IND utilizing adaptive technqiues.) Bathing Location: L Arm, R Arm, L Upper Leg, R Upper Leg, L Lower Leg (including foot), R Lower Leg (including foot), Chest, Abdomen, Buttocks, Perineal Area Shower/Bathe Self (QC): 4 (CGA during bending tasks. Pt completes all areas with SBA-CGA in sc in shower room. ) Upper Body Dressing (QC): 3 (min A RUE) Lower Body Dressing (QC): 3 (min A righting in stance. Pt able to thread BLE in chair with min cues for orientation of clothing. 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 Defib in place Cardiomyopathy HTN Plan: Monitor dysphagia Cardiology consultation IRF protocol 04/11/20: Monitor BP Appreciate Cardiology 04/12/20: Monitor closely Pain management 04/13/20: Gabapentin Oxycodone 04/14/20: Increase Gabapentin Oxycodone BM regimen to increase today may need supp 04/15/20: BM++ Monitor pain of right side 04/16/20: Increase dose of Neurontin Maintain aggressive rehab 04/17/20: BM regimen to include supp Q48 hrs Monitor pain Monitor BP 04/18/20: Increased Gabpentin some more today BM regimen 04/19/20: Manage incontinence Right arm and right leg pain management 04/20/20: Maintain pain control Incontinence management BM regimen 04/21/20: Suppository [id number] Monitor closely Pain control 04/22/20: Continue BM regimen Monitor right sided pain 04/23/20: BM regimen PT OT Incontinence care 04/24/20: Monitor BP Fall risk BM regimen 04/25/20: No med changes Pain controlled 04/26/2020: Pain management Bowel regimen with suppository every 48 hours Continue intensive therapy 04/27/2020: Aggressive therapy Incontinence care Pain control 04/28/20: Monitor closely Periarea powder Monitor pain Check labs in am 04/29/20: Labs reviewed Monitor pain issues 04/30/20: Continue therapy Needs dispo 05/01/20: DC to NH at DC Monitor closely Pain continues and difficult to ascertain due to expressive aphasia 05/02/20: Pain control Incontinence care Needs NH placement 05/04/20: Monitor BM Needs NH 05/05/20: Incontinence care 05/06/20: Await NHP Labs normal 05/07/20: DC to NH once accepted 05/08/20: Monitor closely 05/09/20: Monitor pain NHP 05/10/20: [facility] care requested for DC 05/11/20: Maintain pain control Monitor BP 05/12/20: Improved function slowly 05/13/20: Monitor BP 05/14/20: Await NHP (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
--- NOTE | 2020-05-14 10:15 | Speech Therapy Daily Note ---
Speech Daily Progress Note Subjective Date Seen by Provider: May 14, 2020 Time Seen by Provider: 00:30 Patient was sitting up in his recliner following his other therapies. Objective Patient completed a series of questions requiring one word answers with 45% accuracy given moderate cues and/or repetitions. Assessment Assessment Current Status: Fair Progress Treatment Plan Continue Plan of Care Speech Short Term Goals Short Term Goals Short Term Goals 1) The patient will complete OME for improved speech production at each session with 80% or greater accuracy. 2) The patient will complete word finding tasks with 80% or greater accuracy. 3) The patient will complete expressive language tasks 80% or greater accuracy. 4) The patient will tolerate least restrictive diet level without s/s of aspiration at 80% or greater accuracy. 5) The patient will utilize compensatory strategies as trained 80% or greater accuracy. Speech Detention Goals Detention Goals Patient will improve cognitive-communication abilities for completion of daily needs with minimal assist. Patient will maintain adequate nutrition/hydration via safe effective swallow function. Speech-Plan Patient/Family Goals Patient/Family Goals: Patient is to discharge to a SNF once confirmed. Treatment Plan Speech Therapy Treatment Plan: Continue Plan of Care Treatment Duration: May 15, 2020 Frequency: 4 times per week (Patient will receive skilled ST 4-5x per week) Estimated Hrs Per Day: .5 hour per day Rehab Potential: Fair Barriers to Learning: Patient's CVA which is his third, expressive aphasia Pt/Family Agrees to Plan: Yes Safety Risks/Education Teaching Recipient: Patient Teaching Methods: Demonstration, Discussion Response to Teaching: Verbalize Understanding, Return Demonstration Education Topics Provided: Continued safety within his room and with oral intake Time Speech Therapy Time In: 09:30 Speech Therapy Time Out: 10:00 Total Billed Time: 30 Billed Treatment Time 1, TYRONE, FIDEL Najera May 14, 2020 10:15
--- NOTE | 2020-05-14 12:48 | Physical Therapy Daily Note ---
PT Daily Note-Current Subjective Pt. up in chair and agrees to therapy. He has no complaints. Mental Status Patient Orientation: Person Transfers SCALE: Activities may be completed with or without assistive devices. 3-Hulqgecyra-qrywfhk completes the activity by him/herself with no assistance from a helper. 5-Set-up or Clean-up Assistance-helper sets up or cleans up; patient completes activity. [place] assists only prior to or following the activity. 4-Supervision or Touching Assistance-helper provides verbal cues and/or touchi ng/steadying and/or contact guard assistance as patient completes activity. Assistance may be provided throughout the activity or intermittently. 3-Partial/Moderate Assistance-helper does LESS THAN HALF the effort. [place] lifts, holds or supports trunk or limbs, but provides less than half the effort. 2-Substantial/Maximal Assistance-helper does MORE THAN HALF the effort. [place] lifts or holds trunk or limbs and provides more than half the effort. 2-Lwhmtebhl-eqktav does ALL the effort. Patient does none of the effort to complete the activity. Or, the assistance of 2 or more helpers is required for the patient to complete the activity. If activity was not attempted, code reason: 7-Patient Refused. 9-Not Applicable-not attempted and the patient did not perform the activity before the current illness, exacerbation or injury. 10-Not Attempted due to Environmental Limitations-(lack of equipment, weather restraints, etc.). 88-Not Attempted due to Medical Conditions or Safety Concerns. Sit to Lying (QC): 3 Lying to Sitting/Side of Bed(Q: 4 Sit to Stand (QC): 4 Chair/Evg-ra-Yasgn Xfer(QC): 4 Weight Bearing Full Weight Bearing Full Weight Bearing Gait Training Does the Patient Walk?: No and Walking Goal IS indicated Wheelchair Training Does the Pt Use a Wheelchair?: Yes Wheel 150 ft (QC): 4 Type of Wheelchair: Manual occasional cuing needed for direction when pulling up to surfaces for transfers Exercises Supine Ex: Bridging, Short Arc Quads, Hip abd/add Supine Reps: 20 Seated Therapy Exercises: Sit to stand Seated Reps: 5 NuStep Minutes: 10 NuStep Workload: 4 Treatments LE exercises with min-max A of R LE, Nustep with assist of R LE for proper knee alignment, wheelchair mobility, transfers Assessment Current Status: Good Progress Pt. was min A/CGA with transfers and completed all proper w/c safety aspects without cuing. He continues to have movement, strength, and awareness deficits in the R LE. Pt. was fatigued post therapy but continues to need only min A/CGA with SPT with increased fatigue. Pt. up in chair post session with call light and all needs met. PT Short Term Goals Short Term Goals Time Frame: Apr 18, 2020 Roll Left & Right: 3 Sit to lyin Lying to sitting on side of be: 3 Sit to stand: 3 Chair/rym-bm-vhoyj transfer: 3 PT Intermediate Goals Network Admin Goals PT Intermediate Goals Time Frame: May 02, 2020 Roll Left & Right (QC): 4 Sit to Lying (QC): 4 Lying-Sitting on Side/Bed(QC): 4 Sit to Stand (QC): 3 (Zoya) Chair/Xkn-gg-Gysss Xfer(QC): 3 (Zoya) Toilet Transfer (QC): 3 (Zoya) Car Transfer (QC): 3 (Zoya) Does the Patient Walk: No and Walking Goal NOT indicated Walk 10 feet (QC): 88 Walk 50ft with 2 Turns (QC): 88 Walk 150 ft (QC): 88 Walking 10ft on Uneven Surface: 88 1 Step (curb) (QC): 88 4 Steps (QC): 88 12 Steps (QC): 88 Picking up an Object (QC): 88 Wheel 50 feet with 2 turns (QC: 4 Wheel 150 feet: 4 PT Plan Treatment/Plan Treatment Plan: Continue Plan of Care Treatment Plan: Bed Mobility, Education, Functional Activity [place], Functional Strength, Group Therapy, Gait, Safety, Therapeutic Exercise, Transfers Treatment Duration: May 01, 2020 Frequency: At least 5 of 7 days/Wk (IRF) Estimated Hrs Per Day: 1.5 hours per day Patient and/or Family Agrees t: Yes Time/GCodes Time In: 1000 Time Out: 1100 Total Billed Treatment Time: 60 Total Billed Treatment 1, Ex 30', [facility] 10', FA 20' VAISHALI DENNISON PT May 14, 2020 12:48
--- NOTE | 2020-05-14 13:57 | NUR ---
CM/SS CONCURRENT DOCUMENTATION Attempted followup yesterday with [facility] Exec Dir Hernandez, she is reportedly out this week. Indications were that responsibilities were shifted to GRZEGORZ/Margie, discussed potential update status with her. They had contacted [facility] Wednesday but did not reach anyone. Attempted contact with Margie today, she is not available at this time. Discussed at length with patient's sister/THEO Peñaloza. She did explore the other [facility] plans with Margareth Rebollar but did not determine which plan would be best for patient. [employer] has reached out to known contacts at [facility] which has been good to partner in the past regarding modified care plans and payment for same. Continue on every pathway possible for a safe and appropriate discharge for patient.
--- NOTE | 2020-05-14 14:29 | Physical Therapy Daily Note ---
PT Daily Note-Current Subjective Pt. in bed, agrees to therapy. Pt. is (I) with using urinal in bed. Transfers SCALE: Activities may be completed with or without assistive devices. 3-Hcsermzzog-mqlavkc completes the activity by him/herself with no assistance from a helper. 5-Set-up or Clean-up Assistance-helper sets up or cleans up; patient completes activity. [place] assists only prior to or following the activity. 4-Supervision or Touching Assistance-helper provides verbal cues and/or touching/steadying and/or contact guard assistance as patient completes act ivity. Assistance may be provided throughout the activity or intermittently. 3-Partial/Moderate Assistance-helper does LESS THAN HALF the effort. [place] lifts, holds or supports trunk or limbs, but provides less than half the effort. 2-Substantial/Maximal Assistance-helper does MORE THAN HALF the effort. [place] lifts or holds trunk or limbs and provides more than half the effort. 5-Jhubfombh-rfipla does ALL the effort. Patient does none of the effort to complete the activity. Or, the assistance of 2 or more helpers is required for the patient to complete the activity. If activity was not attempted, code reason: 7-Patient Refused. 9-Not Applicable-not attempted and the patient did not perform the activity before the current illness, exacerbation or injury. 10-Not Attempted due to Environmental Limitations-(lack of equipment, weather restraints, etc.). 88-Not Attempted due to Medical Conditions or Safety Concerns. Lying to Sitting/Side of Bed(Q: 4 Sit to Stand (QC): 4 Chair/Ncd-my-Vbstc Xfer(QC): 4 Weight Bearing Full Weight Bearing Full Weight Bearing Gait Training Does the Patient Walk?: No and Walking Goal IS indicated Wheelchair Training Does the Pt Use a Wheelchair?: Yes Wheel 150 ft (QC): 4 Type of Wheelchair: Manual Treatments transfers, [facility] mobility Assessment Current Status: Good Progress Pt. does well with wheelchair mobility and continues to be CGA/min A with sun sfers. Pt. up in bedside chair post session with call light and all needs met. PT Short Term Goals Short Term Goals Time Frame: Apr 18, 2020 Roll Left & Right: 3 Sit to lyin Lying to sitting on side of be: 3 Sit to stand: 3 Chair/ziq-xy-pnptb transfer: 3 PT Usp Goals Fur Dry Cleaner Hand Goals PT Usp Goals Time Frame: May 02, 2020 Roll Left & Right (QC): 4 Sit to Lying (QC): 4 Lying-Sitting on Side/Bed(QC): 4 Sit to Stand (QC): 3 (Zoya) Chair/Jjj-kw-Rzsyp Xfer(QC): 3 (Zoya) Toilet Transfer (QC): 3 (Zoya) Car Transfer (QC): 3 (Zoya) Does the Patient Walk: No and Walking Goal NOT indicated Walk 10 feet (QC): 88 Walk 50ft with 2 Turns (QC): 88 Walk 150 ft (QC): 88 Walking 10ft on Uneven Surface: 88 1 Step (curb) (QC): 88 4 Steps (QC): 88 12 Steps (QC): 88 Picking up an Object (QC): 88 Wheel 50 feet with 2 turns (QC: 4 Wheel 150 feet: 4 PT Plan Treatment/Plan Treatment Plan: Continue Plan of Care Treatment Plan: Bed Mobility, Education, Functional Activity [place], Functional Strength, Group Therapy, Gait, Safety, Therapeutic Exercise, Transfers Treatment Duration: May 01, 2020 Frequency: At least 5 of 7 days/Wk (IRF) Estimated Hrs Per Day: 1.5 hours per day Patient and/or Family Agrees t: Yes Time/GCodes Time In: 1357 Time Out: 1412 Total Billed Treatment Time: 15 Total Billed Treatment 1, FA 15' VAISHALI DENNISON PT May 14, 2020 14:29
[2020-05-14 16:17] VITALS: BP 101/57
[2020-05-14] MEDS: LACTULOSE SYRUP 10GM/15ML (ENULOSE) 30ML UDC PO PRN (17:42)
--- NOTE | 2020-05-14 19:04 | NUR ---
Report received from SANIYA MARSHALL, assume care of pt
--- NOTE | 2020-05-14 20:37 | NUR ---
Pt took all laxatives with thickened apple juice, pt refused Voltaren & Desenex
--- NOTE | 2020-05-14 20:40 | NUR ---
Pt refused Dulcolax suppository
[2020-05-15 05:57] VITALS: BP 101/58
--- NOTE | 2020-05-15 07:03 | PM&R Progress Note ---
Subjective HPI/CC On Admission Date Seen by Provider: May 15, 2020 Time Seen by Provider: 11:00 Subjective/Events-last exam 05/15/20: No issues Awaiting placement 05/14/20: Pt is talking better Saw pt in the gym Lungs remain clear No new issues Awaiting placement Improved speech 05/13/20: Awaiting placement Labs ok 05/12/20: Awaiting placement 05/11/20: Monitor pain 05/10/20: NH did not accept patient after all 05/09/20: Awaiting NHP maybe tomorrow : No significant change Working pretty well with therapy Expressive aphasia makes it difficult to communicate 05/07/20: Suppository given due to no BM for four days Urinating in the urinal now Butt-paste maintained for skin protection 05/06/20: Pt doing pretty well Awaiting retirement placement Labs remain stable Overall doing well 05/05/20: No changes Right sided pain still present Awaiting placement in NH 05/04/20: No major issues BM yesterday no supp used 05/02/20: No major changes More alert today In chair today No BM for several days and refuses suppository 05/01/20: No major changes Refuses suppository Pain on the right side continues Incontinent Sister did family training and felt like he will need to go to a nursing facility [facility] was sent a referral 04/30/20: No major changes Laxatives were refused and he is having a BM every other day without the suppository Denies any significant new issues 04/29/20: Patient reports no major issues No pain reported Pain meds are helpful 04/28/20: Periarea red so will start antifungal powder No pain reported otherwise Incontinence will require 14/12 nursing care along with severe deficit 04/27/2020: Incontinence of both bowel and bladder are limitations Denies any significant new issues Pain is pretty well controlled on the right side for flaccidity muscle spasms 04/26/2020: Patient denies any pain Incontinence requires nursing care 14/12 Pain is pretty well controlled Expressive aphasia makes it difficult to communicate 04/25/20: No major issues Pain controlled Participation with PT 04/24/20: Pt doing pretty well Bowels move after suppository every 48 hrs Decreasing pain medication Decreasing Cozaar due to hypotension per cardiology 04/23/20: BM after suppository every 48hrs Gabapentin BID seems to be working pretty well Using Oxycodone when Gabapentin is not enough No falls 04/22/20: No major issues Expressive aphasia continues Bowels moved yesterday after suppository given every 48 hours 04/21/20: Suppository today and BM Incontinent of B/B Pain improved Does not need to increase Gabapentin 04/20/20: BM yesterday Pain improved Sleepy today Doing better Incontinence : Improve right sided nerve pain Xanax and pain pill helps him BM after suppository Q 48 hours Incontinent of B/B 04/18/20: BM 04/17/20 Eliquis causes blurry vision per sister so will inquire with Dr Gibson regarding Xarelto Incontinent 04/17/20: Bowels not moving so will initiate Dulcolax suppository every 48hrs after laxatives given and he is agreeable for that plan Denies any significant new issues Pain is getting much better with the Gabapentin twice daily and Oxycodone 04/16/20: Right-sided pain still so increased Gabapentin to 300 Mg BID Xanax will help too Oxycodone also helps 04/15/20: Gabapentin maintained Oxycodone maintained Confusion noted? 04/14/20: Monitoring BP Pain right side still present and will increase Gabapentin 04/13/20: Right arm and right leg pain and issue Oxycodone not really helping Nerve pain so will give Gabapentin 04/12/20: Severe pain on right side Oxycodone ordered Participating in therapies well No other pain Pt doing pretty well Expressive aphasia is an issue WBC is 12.4 CMP normal Consulting cardiology Overall doing very well Conferred with RN Checked meds and labs Reviewed therapy notes Review of Systems Neurological: Weakness, Incoordination, Change in speech Objective Exam Vital Signs Vital Signs Date Time Temp Pulse Resp B/P (MAP) Pulse Ox O2 Delivery O2 Flow Rate FiO2 05/16/20 06:00 36.2 75 16 108/73 (85) 96 Room Air Capillary Refill : Less Than 3 Seconds General Appearance: No Apparent Distress, WD/WN, Chronically ill HEENT: PERRL/EOMI, Normal ENT Inspection, Pharynx Normal Neck: Full Range of Motion, Normal Inspection, Non Tender, Supple, Carotid Bruit Respiratory: Chest Non Tender, Lungs Clear, Normal Breath Sounds, No Accessory Muscle Use, No Respiratory Distress Cardiovascular: Regular Rate, Rhythm, No Edema, No Gallop, No JVD, No Murmur, Normal Peripheral Pulses Gastrointestinal: Normal Bowel Sounds, No Organomegaly, No Pulsatile Mass, Non Tender, Soft Back: Normal Inspection, No CVA Tenderness, No Vertebral Tenderness Extremity: Normal Capillary Refill, Normal Inspection, Normal Range of Motion, Non Tender, No Calf Tenderness, No Pedal Edema Neurologic/Psychiatric: Alert, Normal Mood/Affect, Abnormal Gait, Aphasia, Depressed Affect, Disoriented, Motor Weakness (right sided flaccidity) Skin: Normal Color, Warm/Dry Lymphatic: No Adenopathy Results/Procedures Lab Patient resulted labs reviewed. FIM Transfers Therapy Code Descriptions/Definitions Functional [place] Measure: 0=Not Assessed/NA 4=Minimal Assistance 1=Total Assistance 5=Supervision or Setup 2=Maximal Assistance 6=Modified [place] 3=Moderate Assistance 7=Complete IndependenceSCALE: Activities may be completed with or without assistive devices. 1-Rimnphieww-yegssga completes the activity by him/herself with no assistance from a helper. 5-Set-up or Clean-up Assistance-helper sets up or cleans up; patient completes activity. [place] assists only prior to or following the activity. 4-Supervision or Touching Assistance-helper provides verbal cues and/or touching/steadying and/or contact guard assistance as patient completes activity. Assistance may be provided throughout the activity or intermittently. 3-Partial/Moderate Assistance-helper does LESS THAN HALF the effort. [place] lifts, holds or supports trunk or limbs, but provides less than half the effort. 2-Substantial/Maximal Assistance-helper does MORE THAN HALF the effort. [place] lifts or holds trunk or limbs and provides more than half the effort. 8-Kzazkemre-vhujen does ALL the effort. Patient does none of the effort to complete the activity. Or, the assistance of 2 or more helpers is required for the patient to complete the activity. If activity was not attempted, code reason: 7-Patient Refused. 9-Not Applicable-not attempted and the patient did not perform the activity before the current illness, exacerbation or injury. 10-Not Attempted due to Environmental Limitations-(lack of equipment, weather restraints, etc.). 88-Not Attempted due to Medical Conditions or Safety Concerns. Roll Left to Right (QC): 4 (rolling to left only) Sit to Lying (QC): 3 Sit to Stand (QC): 4 Chair/Pfr-hw-Ncsou Xfer(QC): 4 Car Transfer (QC): 4 Gait Training Does the Patient Walk?: No and Walking Goal IS indicated Distance: 20'x3 Walk 10 feet (QC): 3 Walk 50 ft with 2 Turns(QC): 88 Walk 150 ft (QC): 88 Walking 10ft/uneven surface-QC: 88 Gait Persons Needed: 2 Gait Assistive Device: Walker Jose Wheelchair Training Does the Pt Use a Wheelchair?: Yes Wheel 50 ft with 2 turns (QC): 6 Wheel 150 ft (QC): 4 Type of Wheelchair: Manual Stair Training 1 Step (curb) (QC): 9 4 Steps (QC): 9 12 Steps (QC): 9 Balance Picking up an Object (QC): 88 ADL-Treatment Eating (QC): 6 Oral Hygiene (QC): 6 (increased time in front of sink, completes all tasks with IND utilizing adaptive technqiues.) Bathing Location: L Arm, R Arm, L Upper Leg, R Upper Leg, L Lower Leg (including foot), R Lower Leg (including foot), Chest, Abdomen, Buttocks, Perineal Area Shower/Bathe Self (QC): 4 (CGA during bending tasks. Pt completes all areas with SBA-CGA in sc in shower room. ) Upper Body Dressing (QC): 3 (min A RUE) Lower Body Dressing (QC): 3 (min A righting in stance. Pt able to thread BLE in chair with min cues for orientation of clothing. 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 Defib in place Cardiomyopathy HTN Plan: Monitor dysphagia Cardiology consultation IRF protocol 04/11/20: Monitor BP Appreciate Cardiology 04/12/20: Monitor closely Pain management 04/13/20: Gabapentin Oxycodone 04/14/20: Increase Gabapentin Oxycodone BM regimen to increase today may need supp 04/15/20: BM++ Monitor pain of right side 04/16/20: Increase dose of Neurontin Maintain aggressive rehab 04/17/20: BM regimen to include supp Q48 hrs Monitor pain Monitor BP 04/18/20: Increased Gabpentin some more today BM regimen 04/19/20: Manage incontinence Right arm and right leg pain management 04/20/20: Maintain pain control Incontinence management BM regimen 04/21/20: Suppository [id number] Monitor closely Pain control 04/22/20: Continue BM regimen Monitor right sided pain 04/23/20: BM regimen PT OT Incontinence care 04/24/20: Monitor BP Fall risk BM regimen 04/25/20: No med changes Pain controlled 04/26/2020: Pain management Bowel regimen with suppository every 48 hours Continue intensive therapy 04/27/2020: Aggressive therapy Incontinence care Pain control 04/28/20: Monitor closely Periarea powder Monitor pain Check labs in am 04/29/20: Labs reviewed Monitor pain issues 04/30/20: Continue therapy Needs dispo 05/01/20: DC to NH at DC Monitor closely Pain continues and difficult to ascertain due to expressive aphasia 05/02/20: Pain control Incontinence care Needs NH placement 05/04/20: Monitor BM Needs NH 05/05/20: Incontinence care 05/06/20: Await NHP Labs normal 05/07/20: DC to NH once accepted 05/08/20: Monitor closely 05/09/20: Monitor pain NHP 05/10/20: VCV qamar care requested for DC 05/11/20: Maintain pain control Monitor BP 05/12/20: Improved function slowly 05/13/20: Monitor BP 05/14/20: Await NHP 05/15/20: No concerns (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
[2020-05-15] MEDS: BISACODYL 10 MG SUPP (DULCOLAX) PR PRN (07:24)
[2020-05-15] MEDS: polyethylene glycoL POWDER 17 GM (MIRALAX) PACK PO SCH ×2 (07:24→20:40)
[2020-05-15] MEDS: ASPIRIN 81 MG CHEW (CHILDREN'S ASA) PO SCH (07:24)
[2020-05-15] MEDS: SENNA W/DOCUSATE (SENOKOT S) TABLET PO SCH ×2 (07:24→20:37)
[2020-05-15] MEDS: APIXABAN 5 MG (ELIQUIS) TABLET PO SCH ×2 (07:24→20:36)
[2020-05-15] MEDS: BISOPROLOL 5 MG TAB (ZEBETA) PO SCH (07:24)
[2020-05-15] MEDS: GABAPENTIN 400 MG (NEURONTIN) CAP PO SCH ×2 (07:24→20:36)
[2020-05-15] MEDS: SPIRONOLACTONE 25 MG (ALDACTONE) TAB PO SCH (07:25)
[2020-05-15] MEDS: DOCUSATE SODIUM 100 MG (COLACE) CAP PO SCH ×2 (07:25→20:37)
[2020-05-15] MEDS: DICLOFENAC 1% GEL 100 GM (VOLTAREN) TUBE TOP SCH ×4 (07:25→20:40)
[2020-05-15] MEDS: MICONAZOLE 2% POWDER (DESENEX AF) 90 GM TOP SCH ×2 (07:25→20:40)
--- NOTE | 2020-05-15 09:33 | Occupational Ther Daily Note ---
OT Current Status-Daily Note Subjective No pain reported. Appearance Pt. on BSC while nursing present, when OT entered room. Mental Status/Objective Patient Orientation: Person ADL-Treatment Therapy Code Descriptions/Definitions Functional [place] Measure: 0=Not Assessed/NA 4=Minimal Assistance 1=Total Assistance 5=Supervision or Setup 2=Maximal Assistance 6=Modified [place] 3=Moderate Assistance 7=Complete IndependenceSCALE: Activities may be completed with or without assistive devices. 5-Xioroieyvx-djjhoem completes the activity by him/herself with no assistance from a helper. 5-Set-up or Clean-up Assistance-helper sets up or cleans up; patient completes activity. [place] assists only prior to or following the activity. 4-Supervision or Touching Assistance-helper provides verbal cues and/or touc jesenia/steadying and/or contact guard assistance as patient completes activity. Assistance may be provided throughout the activity or intermittently. 3-Partial/Moderate Assistance-helper does LESS THAN HALF the effort. [place] lifts, holds or supports trunk or limbs, but provides less than half the effort. 2-Substantial/Maximal Assistance-helper does MORE THAN HALF the effort. [place] lifts or holds trunk or limbs and provides more than half the effort. 3-Zxjhsqkrg-yrruho does ALL the effort. Patient does none of the effort to complete the activity. Or, the assistance of 2 or more helpers is required for the patient to complete the activity. If activity was not attempted, code reason: 7-Patient Refused. 9-Not Applicable-not attempted and the patient did not perform the activity before the current illness, exacerbation or injury. 10-Not Attempted due to Environmental Limitations-(lack of equipment, weather restraints, etc.). 88-Not Attempted due to Medical Conditions or Safety Concerns. Oral Hygiene (QC): 5 (Set up seated in wheelchair at sink.) Shower/Bathe Self (QC): 3 (Mod assist to stand and cleanse rear [place] area. CGA when bending over to wash feet.) Upper Body Dressing (QC): 3 (Min assist to doff/don shirt.) Lower Body Dressing (QC): 3 (Mod assist. Pt. is able to thread bilateral LE into brief and shorts. While standing at stable surface, is able to balance self with min/mod assist while OT pulls pants over hips.) On/Off Footwear: 3 (Min assist to don socks and shoes. Pt. has difficulty keeping right ankle positioned on left LE while attempting to don right shoe and sock. OT provides dycem and pt. is able to stabilize much better.) Toileting Hygiene (QC): 1 (While on BSC, pt. requires max assist to stand while using britni cane (unstable surface), and assist of another person to don pants over hips. If pt. is able to hold onto grab bar that is stable, he only requir es assistance of one person.) Toilet Transfer (QC): 3 Other Treatment After ADLs, pt. able to self propel to therapy gym. OT provided gentle PROM to right shoulder. Provided gentle joint compressions. Pt. indicates that this feels good. Provided good positioning of right UE. Self propelled back to room. Transferred to chair with min assist. All needs met. Education OT Patient Education: Correct positioning, Exercise program, Modified ADL techniques, Progress toward Goal/Update tx plan, Purpose of tx/functional activities, Reviewed precautions, Rehab process, Transfer techniques Teaching Recipient: Patient Teaching Methods: Demonstration, Discussion Response to Teaching: Verbalize Understanding, Return Demonstration OT Short Term Goals Short Term Goals Eatin Oral hygiene: 5 Toileting hygiene: 2 Shower/bathe self: 2 Upper body dressin Lower body dressin Putting on/taking off footwear: 2 OT Prison Goals Bin Filler Goals Time Frame: May 29, 2020 Eating (QC): 6 Oral Hygiene (QC): 6 Toileting Hygiene (QC): 3 Shower/Bathe Self (QC): 5 Upper Body Dressing (QC): 6 Lower Body Dressing (QC): 3 On/Off Footwear (QC): 6 Additional Goals: 1-Demonstrate ADL Tasks, 2-Verbalize Understanding, 3- ImproveStrength/[place] 1=Demonstrate adherence to instructed precautions during ADL tasks. 2=Patient will verbalize/demonstrate understanding of assistive device s/modifications for ADL. 3=Patient will improve strength/tolerance for activity to enable patient to perform ADL's. OT Education/Plan Problem List/Assessment Assessment: Decreased Activ Tolerance, Decreased UE Strength, Dependent Transfers, Impaired Funct Balance, Impaired I ADL's, Impaired Self-Care Skills, Restricted Funct UE ROM, Visual-Perceptual Deficit Discharge Recommendations Plan/Recommendations: Continue POC Therapy Discharge Recommendati: Post Acute OT Treatment Plan/Plan of Care Treatment,Training & Education: Yes Patient would benefit from OT for education, treatment and training to promote independence in ADL's, mobility, safety and/or upper extremity function for ADL's. Plan of Care: ADL Retraining, Caregiver Training, Concurrent Therapy, Functional Mobility, Group Exercise/Act as Ind, Orthotic Fitting/Training, UE Funct Exercise/Act, UE Neuromus Re-Ed/Coord, Visual/Perceptual Retrain, W/C Management Training Treatment Duration: Apr 24, 2020 Frequency: At least 5 of 7 days/Wk (IRF) Estimated Hrs Per Day: 1.5 hours per day Agreement: Yes Rehab Potential: Fair Time/GCodes Start Time: 08:15 Stop Time: 09:30 Total Time Billed (hr/min): 75 Billed Treatment Time 1, ADL x 60minutes, Ex x 15minutes SEDA MEDEL OT May 15, 2020 09:33
--- NOTE | 2020-05-15 10:56 | Speech Therapy Daily Note ---
Speech Daily Progress Note Subjective Date Seen by Provider: May 15, 2020 Time Seen by Provider: 00:30 Patient was sitting up in his recliner when I entered his room. He was alert and participated well this date. Objective Patient completed category task of naming an item which belonged to provided category with 60% given mod verbal cuing. Assessment Assessment Current Status: Good Progress Treatment Plan Continue Plan of Care Speech Short Term Goals Short Term Goals Short Term Goals 1) The patient will complete OME for improved speech production at each session with 80% or greater accuracy. 2) The patient will complete word finding tasks with 80% or greater accuracy. 3) The patient will complete expressive language tasks 80% or greater accuracy. 4) The patient will tolerate least restrictive diet level without s/s of aspi ration at 80% or greater accuracy. 5) The patient will utilize compensatory strategies as trained 80% or greater accuracy. Speech Prison Goals Prison Goals Patient will improve cognitive-communication abilities for completion of daily needs with minimal assist. Patient will maintain adequate nutrition/hydration via safe effective swallow function. Speech-Plan Patient/Family Goals Patient/Family Goals: Patient will be discharging to a SNF once the details are confirmed for admission. Treatment Plan Speech Therapy Treatment Plan: Continue Plan of Care Treatment Duration: May 15, 2020 Frequency: 4 times per week (Patient will receive skilled ST 4-5x per week) Estimated Hrs Per Day: .5 hour per day Rehab Potential: Fair Barriers to Learning: Patient's 3rd CVA and expressive aphasia Pt/Family Agrees to Plan: Yes Safety Risks/Education Teaching Recipient: Patient Teaching Methods: Demonstration, Discussion Response to Teaching: Verbalize Understanding, Return Demonstration Education Topics Provided: Continued safety within his room and with oral intake. Time Speech Therapy Time In: 09:30 Speech Therapy Time Out: 10:00 Total Billed Time: 30 Billed Treatment Time 1, SLDECLAN, DYST FIDEL Hooper May 15, 2020 10:56
--- NOTE | 2020-05-15 11:16 | Physical Therapy Daily Note ---
PT Daily Note-Current Subjective Pt. agrees to Rx. Indicates he feels he made progress today and can really feel it in his right leg Pain Location: No Pain Reported Mental Status Patient Orientation: Non-Verbal/Aphasic Attachments: Other-See Comments (mask while out of room) Transfers SCALE: Activities may be completed with or without assistive devices. 5-Afijooepnn-owrepgp completes the activity by him/herself with no assistance from a helper. 5-Set-up or Clean-up Assistance-helper sets up or cleans up; patient completes activity. [place] assists only prior to or following the activity. 4-Supervision or Touching Assistance-helper provides verbal cues and/or touching/steadying and/or contact guard assistance as patient completes activity. Assistance may be provided throughout the activity or intermittently. 3-Partial/Moderate Assistance-helper does LESS THAN HALF the effort. [place] lifts, holds or supports trunk or limbs, but provides less than half the effort. 2-Substantial/Maximal Assistance-helper does MORE THAN HALF the effort. [place] lifts or holds trunk or limbs and provides more than half the effort. 9-Gcoqrrxvc-yldmnh does ALL the effort. Patient does none of the effort to complete the activity. Or, the assistance of 2 or more helpers is required for the patient to complete the activity. If activity was not attempted, code reason: 7-Patient Refused. 9-Not Applicable-not attempted and the patient did not perform the activity before the current illness, exacerbation or injury. 10-Not Attempted due to Environmental Limitations-(lack of equipment, weather restraints, etc.). 88-Not Attempted due to Medical Conditions or Safety Concerns. Roll Left & Right (QC): 4 Sit to Lying (QC): 6 Lying to Sitting/Side of Bed(Q: 6 Sit to Stand (QC): 4 Chair/Iqk-jw-Mklkx Xfer(QC): 4 TRFs toward L CGA to min, TRFs toward R mod to min assist Weight Bearing Full Weight Bearing Full Weight Bearing Gait Training Does the Patient Walk?: Yes Walk 10 feet (QC): 4 Gait Persons Needed: 1 Gait Assistive Device: Handheld Assist (HH on R, akers rail at left) followed by w/c, pt. advancing RLE needing only a few cues for placement and YUDITH, Wheelchair Training Does the Pt Use a Wheelchair?: Yes Wheel 50 ft with 2 turns (QC): 4 Type of Wheelchair: Manual needs reminded to brake etc Exercises Supine Ex: Bridging, Ankle pumps, Quad Set, Rolling, Glut sets, Heel Slides, Short Arc Quads, Scooting, Straight leg raise, Hip abd/add Supine Reps: 12 (x2) assisted on R with exercise but shows progress with hip add and Q sets NuStep Minutes: 8 NuStep Workload: 4 Assessment Current Status: Good Progress PT Short Term Goals Short Term Goals Time Frame: Apr 18, 2020 Roll Left & Right: 3 Sit to lyin Lying to sitting on side of be: 3 Sit to stand: 3 Chair/drn-ru-jfjeb transfer: 3 PT Alf Goals Corrosion Technician Goals PT Corrosion Technician Goals Time Frame: May 02, 2020 Roll Left & Right (QC): 4 Sit to Lying (QC): 4 Lying-Sitting on Side/Bed(QC): 4 Sit to Stand (QC): 3 (Zoya) Chair/Rgf-wy-Gihhb Xfer(QC): 3 (Zoya) Toilet Transfer (QC): 3 (Zoya) Car Transfer (QC): 3 (Zoya) Does the Patient Walk: No and Walking Goal NOT indicated Walk 10 feet (QC): 88 Walk 50ft with 2 Turns (QC): 88 Walk 150 ft (QC): 88 Walking 10ft on Uneven Surface: 88 1 Step (curb) (QC): 88 4 Steps (QC): 88 12 Steps (QC): 88 Picking up an Object (QC): 88 Wheel 50 feet with 2 turns (QC: 4 Wheel 150 feet: 4 PT Plan Treatment/Plan Treatment Plan: Continue Plan of Care Treatment Plan: Bed Mobility, Education, Functional Activity [place], Functional Strength, Group Therapy, Gait, Safety, Therapeutic Exercise, Transfers Treatment Duration: May 01, 2020 Frequency: At least 5 of 7 days/Wk (IRF) Estimated Hrs Per Day: 1.5 hours per day Patient and/or Family Agrees t: Yes Safety Risks/Education Patient Education: Gait Training, Transfer Techniques, Correct Positioning, W/C Management, Disease Process, Safety Issues Teaching Recipient: Patient Teaching Methods: Demonstration, Discussion Response to Teaching: Verbalize Understanding, Return Demonstration, Reinforcement Needed Time/GCodes Time In: 1000 Time Out: 1115 Total Billed Treatment Time: 75 Total Billed Treatment 1,GT15m,WC10m,EX30m,FA20m ZAIRA GALEANA [employer]ODUCTION POTTER May 15, 2020 11:16
[2020-05-15 17:16] VITALS: BP 129/85
[2020-05-16 06:00] VITALS: BP 108/73
--- NOTE | 2020-05-16 06:59 | PM&R Progress Note ---
Subjective HPI/CC On Admission Date Seen by Provider: May 16, 2020 Time Seen by Provider: 13:30 Subjective/Events-last exam 05/16/20: Making true progress with walking with walker hemitype No pain 05/15/20: No issues Awaiting placement 05/14/20: Pt is talking better Saw pt in the gym Lungs remain clear No new issues Awaiting placement Improved speech 05/13/20: Awaiting placement Labs ok 05/12/20: Awaiting placement 05/11/20: Monitor pain 05/10/20: NH did not accept patient after all 05/09/20: Awaiting NHP maybe tomorrow : No significant change Working pretty well with therapy Expressive aphasia makes it difficult to communicate 05/07/20: Suppository given due to no BM for four days Urinating in the urinal now Butt-paste maintained for skin protection 05/06/20: Pt doing pretty well Awaiting jail placement Labs remain stable Overall doing well 05/05/20: No changes Right sided pain still present Awaiting placement in NH 05/04/20: No major issues BM yesterday no supp used 05/02/20: No major changes More alert today In chair today No BM for several days and refuses suppository 05/01/20: No major changes Refuses suppository Pain on the right side continues Incontinent Sister did family training and felt like he will need to go to a nursing facility [facility] was sent a referral 04/30/20: No major changes Laxatives were refused and he is having a BM every other day without the suppository Denies any significant new issues 04/29/20: Patient reports no major issues No pain reported Pain meds are helpful 04/28/20: Periarea red so will start antifungal powder No pain reported otherwise Incontinence will require 14/12 nursing care along with severe deficit 04/27/2020: Incontinence of both bowel and bladder are limitations Denies any significant new issues Pain is pretty well controlled on the right side for flaccidity muscle spasms 04/26/2020: Patient denies any pain Incontinence requires nursing care 14/12 Pain is pretty well controlled Expressive aphasia makes it difficult to communicate 04/25/20: No major issues Pain controlled Participation with PT 04/24/20: Pt doing pretty well Bowels move after suppository every 48 hrs Decreasing pain medication Decreasing Cozaar due to hypotension per cardiology 04/23/20: BM after suppository every 48hrs Gabapentin BID seems to be working pretty well Using Oxycodone when Gabapentin is not enough No falls 04/22/20: No major issues Expressive aphasia continues Bowels moved yesterday after suppository given every 48 hours 04/21/20: Suppository today and BM Incontinent of B/B Pain improved Does not need to increase Gabapentin 04/20/20: BM yesterday Pain improved Sleepy today Doing better Incontinence : Improve right sided nerve pain Xanax and pain pill helps him BM after suppository Q 48 hours Incontinent of B/B 04/18/20: BM 04/17/20 Eliquis causes blurry vision per sister so will inquire with Dr Gibson regarding Xarelto Incontinent 04/17/20: Bowels not moving so will initiate Dulcolax suppository every 48hrs after laxatives given and he is agreeable for that plan Denies any significant new issues Pain is getting much better with the Gabapentin twice daily and Oxycodone 04/16/20: Right-sided pain still so increased Gabapentin to 300 Mg BID Xanax will help too Oxycodone also helps 04/15/20: Gabapentin maintained Oxycodone maintained Confusion noted? 04/14/20: Monitoring BP Pain right side still present and will increase Gabapentin 04/13/20: Right arm and right leg pain and issue Oxycodone not really helping Nerve pain so will give Gabapentin 04/12/20: Severe pain on right side Oxycodone ordered Participating in therapies well No other pain Pt doing pretty well Expressive aphasia is an issue WBC is 12.4 CMP normal Consulting cardiology Overall doing very well Conferred with RN Checked meds and labs Reviewed therapy notes Review of Systems Neurological: Weakness, Incoordination Objective Exam Vital Signs Vital Signs Date Time Temp Pulse Resp B/P (MAP) Pulse Ox O2 Delivery O2 Flow Rate FiO2 05/16/20 21:00 Room Air 05/16/20 16:19 36.3 81 20 108/66 (80) 97 Capillary Refill : Less Than 3 Seconds General Appearance: No Apparent Distress, WD/WN, Chronically ill HEENT: PERRL/EOMI, Normal ENT Inspection, Pharynx Normal Neck: Full Range of Motion, Normal Inspection, Non Tender, Supple, Carotid Bruit Respiratory: Chest Non Tender, Lungs Clear, Normal Breath Sounds, No Accessory Muscle Use, No Respiratory Distress Cardiovascular: Regular Rate, Rhythm, No Edema, No Gallop, No JVD, No Murmur, Normal Peripheral Pulses Gastrointestinal: Normal Bowel Sounds, No Organomegaly, No Pulsatile Mass, Non Tender, Soft Back: Normal Inspection, No CVA Tenderness, No Vertebral Tenderness Extremity: Normal Capillary Refill, Normal Inspection, Normal Range of Motion, Non Tender, No Calf Tenderness, No Pedal Edema Neurologic/Psychiatric: Alert, Normal Mood/Affect, Abnormal Gait, Aphasia, Depressed Affect, Disoriented, Motor Weakness (right sided flaccidity) Skin: Normal Color, Warm/Dry Lymphatic: No Adenopathy Results/Procedures Lab Patient resulted labs reviewed. FIM Transfers Therapy Code Descriptions/Definitions Functional [place] Measure: 0=Not Assessed/NA 4=Minimal Assistance 1=Total Assistance 5=Supervision or Setup 2=Maximal Assistance 6=Modified Fred 3=Moderate Assistance 7=Complete IndependenceSCALE: Activities may be completed with or without assistive devices. 1-Nkrsdgasor-xgmovei completes the activity by him/herself with no assistance from a helper. 5-Set-up or Clean-up Assistance-helper sets up or cleans up; patient completes activity. [place] assists only prior to or following the activity. 4-Supervision or Touching Assistance-helper provides verbal cues and/or touching/steadying and/or contact guard assistance as patient completes activity. Assistance may be provided throughout the activity or intermittently. 3-Partial/Moderate Assistance-helper does LESS THAN HALF the effort. [place] lifts, holds or supports trunk or limbs, but provides less than half the effort. 2-Substantial/Maximal Assistance-helper does MORE THAN HALF the effort. [place] lifts or holds trunk or limbs and provides more than half the effort. 5-Wutybxzqr-efkivk does ALL the effort. Patient does none of the effort to complete the activity. Or, the assistance of 2 or more helpers is required for the patient to complete the activity. If activity was not attempted, code reason: 7-Patient Refused. 9-Not Applicable-not attempted and the patient did not perform the activity before the current illness, exacerbation or injury. 10-Not Attempted due to Environmental Limitations-(lack of equipment, weather restraints, etc.). 88-Not Attempted due to Medical Conditions or Safety Concerns. Roll Left to Right (QC): 4 Sit to Lying (QC): 6 Sit to Stand (QC): 4 Chair/Azv-ru-Famgh Xfer(QC): 4 Car Transfer (QC): 4 Gait Training Does the Patient Walk?: Yes Distance: 20'x3 Walk 10 feet (QC): 4 Walk 50 ft with 2 Turns(QC): 88 Walk 150 ft (QC): 88 Walking 10ft/uneven surface-QC: 88 Gait Persons Needed: 1 Gait Assistive Device: Handheld Assist (HH on R, akers rail at left) Wheelchair Training Does the Pt Use a Wheelchair?: Yes Wheel 50 ft with 2 turns (QC): 4 Wheel 150 ft (QC): 4 Type of Wheelchair: Manual Stair Training 1 Step (curb) (QC): 9 4 Steps (QC): 9 12 Steps (QC): 9 Balance Picking up an Object (QC): 88 ADL-Treatment Eating (QC): 6 Oral Hygiene (QC): 5 (Set up seated in wheelchair at sink.) Bathing Location: L Arm, R Arm, L Upper Leg, R Upper Leg, L Lower Leg (including foot), R Lower Leg (including foot), Chest, Abdomen, Buttocks, Perineal Area Shower/Bathe Self (QC): 3 (Mod assist to stand and cleanse rear salvador area. CGA when bending over to wash feet.) Upper Body Dressing (QC): 3 (Min assist to doff/don shirt.) Lower Body Dressing (QC): 3 (Mod assist. Pt. is able to thread bilateral LE into brief and shorts. While standing at stable surface, is able to balance self with min/mod assist while OT pulls pants over hips.) On/Off Footwear (QC): 3 (Min assist to don socks and shoes. Pt. has difficulty keeping right ankle positioned on left LE while attempting to don right shoe and sock. OT provides dycem and pt. is able to stabilize much better.) Toileting Hygiene (QC): 1 (While on BSC, pt. requires max assist to stand while using britni cane (unstable surface), and assist of another person to don pants over hips. If pt. 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 Defib in place Cardiomyopathy HTN Plan: Monitor dysphagia Cardiology consultation IRF protocol 04/11/20: Monitor BP Appreciate Cardiology 04/12/20: Monitor closely Pain management 04/13/20: Gabapentin Oxycodone 04/14/20: Increase Gabapentin Oxycodone BM regimen to increase today may need supp 04/15/20: BM++ Monitor pain of right side 04/16/20: Increase dose of Neurontin Maintain aggressive rehab 04/17/20: BM regimen to include supp Q48 hrs Monitor pain Monitor BP 04/18/20: Increased Gabpentin some more today BM regimen 04/19/20: Manage incontinence Right arm and right leg pain management 04/20/20: Maintain pain control Incontinence management BM regimen 04/21/20: Suppository [id number] Monitor closely Pain control 04/22/20: Continue BM regimen Monitor right sided pain 04/23/20: BM regimen PT OT Incontinence care 04/24/20: Monitor BP Fall risk BM regimen 04/25/20: No med changes Pain controlled 04/26/2020: Pain management Bowel regimen with suppository every 48 hours Continue intensive therapy 04/27/2020: Aggressive therapy Incontinence care Pain control 04/28/20: Monitor closely Periarea powder Monitor pain Check labs in am 04/29/20: Labs reviewed Monitor pain issues 04/30/20: Continue therapy Needs dispo 05/01/20: DC to NH at DC Monitor closely Pain continues and difficult to ascertain due to expressive aphasia 05/02/20: Pain control Incontinence care Needs NH placement 05/04/20: Monitor BM Needs NH 05/05/20: Incontinence care 05/06/20: Await NHP Labs normal 05/07/20: DC to NH once accepted 05/08/20: Monitor closely 05/09/20: Monitor pain NHP 05/10/20: VCV qamar care requested for DC 05/11/20: Maintain pain control Monitor BP 05/12/20: Improved function slowly 05/13/20: Monitor BP 05/14/20: Await NHP 05/15/20: No concerns 12/24/20: Monitor closely Improved ambulation (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
[2020-05-16] MEDS: ASPIRIN 81 MG CHEW (CHILDREN'S ASA) PO SCH (08:57)
[2020-05-16] MEDS: BISOPROLOL 5 MG TAB (ZEBETA) PO SCH (08:57)
[2020-05-16] MEDS: SPIRONOLACTONE 25 MG (ALDACTONE) TAB PO SCH (08:57)
[2020-05-16] MEDS: GABAPENTIN 400 MG (NEURONTIN) CAP PO SCH ×2 (08:57→21:00)
[2020-05-16] MEDS: APIXABAN 5 MG (ELIQUIS) TABLET PO SCH ×2 (08:57→21:00)
[2020-05-16] MEDS: DOCUSATE SODIUM 100 MG (COLACE) CAP PO SCH ×2 (09:00→21:01)
[2020-05-16] MEDS: MICONAZOLE 2% POWDER (DESENEX AF) 90 GM TOP SCH ×2 (09:00→21:02)
[2020-05-16] MEDS: DICLOFENAC 1% GEL 100 GM (VOLTAREN) TUBE TOP SCH ×4 (09:00→21:05)
[2020-05-16] MEDS: polyethylene glycoL POWDER 17 GM (MIRALAX) PACK PO SCH ×2 (09:00→21:01)
--- NOTE | 2020-05-16 09:09 | Physical Therapy Daily Note ---
PT Daily Note-Current Subjective Pt is in bed on arrival and agreeable to therapy. No pain complaints. Appearance Pt in the chair after PT with nursing present giving medication. Mental Status Patient Orientation: Person, Place, Time, Situation Transfers SCALE: Activities may be completed with or without assistive devices. 4-Xpocrvrgmx-gmjffus completes the activity by him/herself with no assistance from a helper. 5-Set-up or Clean-up Assistance-helper sets up or cleans up; patient completes activity. [place] assists only prior to or following the activity. 4-Supervision or Touching Assistance-helper provides verbal cues and/or estephanie nanci/steadying and/or contact guard assistance as patient completes activity. Assistance may be provided throughout the activity or intermittently. 3-Partial/Moderate Assistance-helper does LESS THAN HALF the effort. [place] lifts, holds or supports trunk or limbs, but provides less than half the effort. 2-Substantial/Maximal Assistance-helper does MORE THAN HALF the effort. [place] lifts or holds trunk or limbs and provides more than half the effort. 3-Jrcvpulyg-qoxplt does ALL the effort. Patient does none of the effort to complete the activity. Or, the assistance of 2 or more helpers is required for the patient to complete the activity. If activity was not attempted, code reason: 7-Patient Refused. 9-Not Applicable-not attempted and the patient did not perform the activity before the current illness, exacerbation or injury. 10-Not Attempted due to Environmental Limitations-(lack of equipment, weather restraints, etc.). 88-Not Attempted due to Medical Conditions or Safety Concerns. Roll Left & Right (QC): 5 Sit to Lying (QC): 5 Lying to Sitting/Side of Bed(Q: 5 Sit to Stand (QC): 3 Chair/Nyw-px-Mjsum Xfer(QC): 3 Weight Bearing Full Weight Bearing Full Weight Bearing Gait Training Does the Patient Walk?: Yes Distance: 24ft x2 Walk 10 feet (QC): 3 Gait Persons Needed: 1 Gait Assistive Device: Walker Jose Pt was able to advance the (R) LE without assistance. He was even able to step with the (R) or (L) foot first with good stability. Wheelchair Training Does the Pt Use a Wheelchair?: Yes Wheel 50 ft with 2 turns (QC): 5 Wheel 150 ft (QC): 5 Type of Wheelchair: Manual Verbal cues due to mild (R) neglect. Exercises Supine Ex: LE Protocol Supine Reps: [address] Ex=Flex, Abd, Ext, Marching, Sit to Stand Standing Reps: 15 Pt able to perform standing ex with (B) LEs and good stability. NuStep requires assist to keep (R) leg from abducting. NuStep Minutes: 5 NuStep Workload: 5 Assessment Current Status: Good Progress Pt made good progress with ambulation and standing exercises today. PT Short Term Goals Short Term Goals Time Frame: Apr 18, 2020 Roll Left & Right: 3 Sit to lyin Lying to sitting on side of be: 3 Sit to stand: 3 Chair/dbj-ug-usomg transfer: 3 PT Software Release Engineer Goals Software Release Engineer Goals PT Shelter Goals Time Frame: May 02, 2020 Roll Left & Right (QC): 4 Sit to Lying (QC): 4 Lying-Sitting on Side/Bed(QC): 4 Sit to Stand (QC): 3 (Zoya) Chair/Tvv-tu-Tucxy Xfer(QC): 3 (Zoya) Toilet Transfer (QC): 3 (Zoya) Car Transfer (QC): 3 (Zoya) Does the Patient Walk: No and Walking Goal NOT indicated Walk 10 feet (QC): 88 Walk 50ft with 2 Turns (QC): 88 Walk 150 ft (QC): 88 Walking 10ft on Uneven Surface: 88 1 Step (curb) (QC): 88 4 Steps (QC): 88 12 Steps (QC): 88 Picking up an Object (QC): 88 Wheel 50 feet with 2 turns (QC: 4 Wheel 150 feet: 4 PT Plan Treatment/Plan Treatment Plan: Continue Plan of Care Treatment Plan: Bed Mobility, Education, Functional Activity [place], Functional Strength, Group Therapy, Gait, Safety, Therapeutic Exercise, Transfers Treatment Duration: May 01, 2020 Frequency: At least 5 of 7 days/Wk (IRF) Estimated Hrs Per Day: 1.5 hours per day Patient and/or Family Agrees t: Yes Time/GCodes Time In: 08 Time Out: 08 Total Billed Treatment Time: 45 Total Billed Treatment 1, ex x2, gt JAYCEE MCGUIRE PT May 16, 2020 09:09
--- NOTE | 2020-05-16 09:17 | NUR ---
EVER/SHIVA PATIENT CARE CONFERENCE Reviewed Summary with patient, he remains in a holding pattern for target discharge as soon as appropriate arrangements can be made. Patient is discouraged from the number of denials and, while he continues positive participation and progress, it seems a discharge would represent a positive step to another level of his care plan. Roll Setter reached out to a resource through another [facility] plan ([employer]) to review the scenario of this case. She was in agreement that acceptance into a community nursing facility should not be this difficult. Upon admission to [facility], patient would be converted to penitentiary care [facility] for 90 days and then would be eligible to apply for [employer] (Money Follows the Person) program. This program is focused to help people move from nursing homes into either assisted living or other specific living arrangements per criteria. The obvious barrier to discharge has been getting an accepting nursing facility since zero have been willing to accept Medicaid [id number] reimbursement and incur loss for all therapy services/billing. Patient's home with his sister is reportedly not handicap accessible. If it was, his overall condition would not make him a priority for any accelerated private care services, should he even be eligible. Very difficult, complex discharge due to funding and resources. Addendum: 05/16/20 at 0954 by KASANDRA FAITH Roll Setter spoke with ISAIAS/GRZEGORZ/Margie yesterday. She reportedly has made several attempts to contact patient's [facility] plan to no avail, no response to calls/message/emails. Roll Setter has proposed that [facility] accept patient as a sister facility and in partnership under [facility] umbrella and provide the therapy qamar care. Last communication 05/10 with ISAIAS Encarnacion/Mary was that she would approach her superiors to discuss, she has since been absent from work. Followup Wednesday.
--- NOTE | 2020-05-16 10:33 | Occupational Ther Daily Note ---
OT Current Status-Daily Note Subjective [id number]: Pt alert in bed this am. Pt agrees to OT tx. Denies pain. 8577-9912: Pt alert in chair, agrees to tx. Pt desires showering. Mental Status/Objective Patient Orientation: Person, Place, Situation ADL-Treatment Therapy Code Descriptions/Definitions Functional [place] Measure: 0=Not Assessed/NA 4=Minimal Assistance 1=Total Assistance 5=Supervision or Setup 2=Maximal Assistance 6=Modified [place] 3=Moderate Assistance 7=Complete IndependenceSCALE: Activities may be completed with or without assistive devices. 0-Mlcvlkfmop-xuayixy completes the activity by him/herself with no assistance from a helper. 5-Set-up or Clean-up Assistance-helper sets up or cleans up; patient completes activity. [place] assists only prior to or following the activity. 4-Supervision or Touching Assistance-helper provides verbal cues and/or touching/steadying and/or contact guard assistance as patient completes activity. Assistance may be provided throughout the activity or intermittently. 3-Partial/Moderate Assistance-helper does LESS THAN HALF the effort. [place] lifts, holds or supports trunk or limbs, but provides less than half the effort. 2-Substantial/Maximal Assistance-helper does MORE THAN HALF the effort. [place] lifts or holds trunk or limbs and provides more than half the effort. 3-Aroxgeykb-sxomme does ALL the effort. Patient does none of the effort to complete the activity. Or, the assistance of 2 or more helpers is required for the patient to complete the activity. If activity was not attempted, code reason: 7-Patient Refused. 9-Not Applicable-not attempted and the patient did not perform the activity before the current illness, exacerbation or injury. 10-Not Attempted due to Environmental Limitations-(lack of equipment, weather restraints, etc.). 88-Not Attempted due to Medical Conditions or Safety Concerns. Eating (QC): 6 Oral Hygiene (QC): 6 (completes in w/c with IND) Bathing Location: L Arm, R Arm, L Upper Leg, R Upper Leg, L Lower Leg (including foot), R Lower Leg (including foot), Chest, Abdomen, Buttocks, Perineal Area Shower/Bathe Self (QC): 4 (SBA-CGA intermittently, completes all areas.) Upper Body Dressing (QC): 3 (min A R side.) Lower Body Dressing (QC): 2 (max A: Pt able to thread RLE with assist to support RLE on knee, pt completes LLE and in stance (CGA) pt requires full assist to shoe puller hips to maintain balance at gbs.) On/Off Footwear: 3 (mod A RLE) Toileting Hygiene (QC): 1 (TD due to 2 person assist this am.) Toilet Transfer (QC): 3 (min A.) Other Treatment OT individual tx: [id number]: Pt bed mob with min A. SPT to L side w/c with CGA. Pt propels chair to bathroom, completes oral care IND. Requests return to bed, able to maneuver w/c to parallel bedside to SPT to L side. completes with min A. Returns to bed/ supine min A, all needs met. [id number]: Pt sit to stand/ SPT to w/c with min A. Pt completes BM on commode as outlined. 2 person assist in stance due to placement of commode. Pt propels self to shower room, completing on sc as outlined. Completes sit to stand at gbs with CGA. Pt returns to w/c level, completing footwear and propelling self to room. integration aide requests back to bed for weight. Pt completes SPT/ bed mob with CGA. Pt is weighed, supine to sit CGA. SPT to R/ weak side with min A. Requests chair. SPT to strong/ L side with CGA. 15 minutes of RUE stretching/ manual tension release/ massage to encourage comfort/ contracture prevention to all joints of RUE in all planes. Pt left in recliner with all needs met, call light in reach. Education OT Patient Education: Correct positioning, Progress toward Goal/Update tx plan, Purpose of tx/functional activities, Safety issues, Use of adapted equipment Teaching Recipient: Patient Teaching Methods: Demonstration, Discussion Response to Teaching: Verbalize Understanding, Return Demonstration OT Short Term Goals Short Term Goals Eatin Oral hygiene: 5 Toileting hygiene: 2 Shower/bathe self: 2 Upper body dressin Lower body dressin Putting on/taking off footwear: 2 OT Clinical Research Assistant Goals Clinical Research Assistant Goals Time Frame: May 29, 2020 Eating (QC): 6 Oral Hygiene (QC): 6 Toileting Hygiene (QC): 3 Shower/Bathe Self (QC): 5 Upper Body Dressing (QC): 6 Lower Body Dressing (QC): 3 On/Off Footwear (QC): 6 Additional Goals: 1-Demonstrate ADL Tasks, 2-Verbalize Understanding, 3- ImproveStrength/[place] 1=Demonstrate adherence to instructed precautions during ADL tasks. 2=Patient will verbalize/demonstrate understanding of assistive devices/modifications for ADL. 3=Patient will improve strength/tolerance for activity to enable patient to perform ADL's. OT Education/Plan Problem List/Assessment Assessment: Decreased Activ Tolerance, Decreased UE Strength, Dependent Transfers, Impaired Bed Mobility, Impaired Coordination, Impaired Funct Balance, Impaired I ADL's, Impaired Self-Care Skills, Restricted Funct UE ROM, Visual-Perceptual Deficit Discharge Recommendations Plan/Recommendations: Continue POC Therapy Discharge Recommendati: 24 Hour Supervision, Post Acute OT Treatment Plan/Plan of Care Treatment,Training & Education: Yes Patient would benefit from OT for education, treatment and training to promote independence in ADL's, mobility, safety and/or upper extremity function for ADL's. Plan of Care: ADL Retraining, Caregiver Training, Concurrent Therapy, Functional Mobility, Group Exercise/Act as Ind, Orthotic Fitting/Training, UE Funct Exercise/Act, UE Neuromus Re-Ed/Coord, Visual/Perceptual Retrain, W/C Management Training Treatment Duration: Apr 24, 2020 Frequency: At least 5 of 7 days/Wk (IRF) Estimated Hrs Per Day: 1.5 hours per day Agreement: Yes Rehab Potential: Fair Time/GCodes Start Time: 07:45 (0915) Stop Time: 08:00 (1015) Total Time Billed (hr/min): 75 (15+60) Billed Treatment Time [id number]: 1, ADL (15) 4585-6033: 1, ADL 3 (45), MAS (15)= 60 FATIMAH KERNS OTR May 16, 2020 10:33
[2020-05-16] MEDS: SENNA W/DOCUSATE (SENOKOT S) TABLET PO SCH ×2 (10:43→21:00)
--- NOTE | 2020-05-16 11:13 | Physical Therapy Daily Note ---
PT Daily Note-Current Subjective Pt is in the chair on arrival. He is ready for PT. Mental Status Patient Orientation: Person, Place, Time, Situation Transfers SCALE: Activities may be completed with or without assistive devices. 6-Wwpyafrmah-wtyrdjq completes the activity by him/herself with no assistance from a helper. 5-Set-up or Clean-up Assistance-helper sets up or cleans up; patient completes activity. [place] assists only prior to or following the activity. 4-Supervision or Touching Assistance-helper provides verbal cues and/or touching/steadying and/or contact guard assistance as patient completes activity. Assistance may be provided throughout the activity or intermittently. 3-Partial/Moderate Assistance-helper does LESS THAN HALF the effort. [place] lifts, holds or supports trunk or limbs, but provides less than half the effort. 2-Substantial/Maximal Assistance-helper does MORE THAN HALF the effort. [place] lifts or holds trunk or limbs and provides more than half the effort. 0-Ofmrbboav-zwgtvw does ALL the effort. Patient does none of the effort to complete the activity. Or, the assistance of 2 or more helpers is required for the patient to complete the activity. If activity was not attempted, code reason: 7-Patient Refused. 9-Not Applicable-not attempted and the patient did not perform the activity before the current illness, exacerbation or injury. 10-Not Attempted due to Environmental Limitations-(lack of equipment, weather restraints, etc.). 88-Not Attempted due to Medical Conditions or Safety Concerns. Sit to Stand (QC): 5 Chair/Voo-kb-Rvvwd Xfer(QC): 4 Weight Bearing Full Weight Bearing Full Weight Bearing Gait Training Does the Patient Walk?: Yes Distance: 32ft, 20ft, 60ft Walk 10 feet (QC): 3 Walk 50 ft with 2 Turns(QC): 3 Gait Persons Needed: 1 Gait Assistive Device: Walker Jose Wheelchair Training Does the Pt Use a Wheelchair?: Yes Wheel 50 ft with 2 turns (QC): 5 Type of Wheelchair: Manual Exercises Standin way Ex=Flex, Abd, Ext, Marching, Sit to Stand Standing Reps: 15 Assessment Current Status: Good Progress Pt was highly motivated to walk more today. He was able to walk 60ft without stopping. PT Short Term Goals Short Term Goals Time Frame: Apr 18, 2020 Roll Left & Right: 3 Sit to lyin Lying to sitting on side of be: 3 Sit to stand: 3 Chair/jps-qz-rmwid transfer: 3 PT Alf Goals Pmo Project Manager Goals PT Alf Goals Time Frame: May 02, 2020 Roll Left & Right (QC): 4 Sit to Lying (QC): 4 Lying-Sitting on Side/Bed(QC): 4 Sit to Stand (QC): 3 (Zoya) Chair/Bvi-ev-Vtklo Xfer(QC): 3 (Zoya) Toilet Transfer (QC): 3 (Zoya) Car Transfer (QC): 3 (Zoya) Does the Patient Walk: No and Walking Goal NOT indicated Walk 10 feet (QC): 88 Walk 50ft with 2 Turns (QC): 88 Walk 150 ft (QC): 88 Walking 10ft on Uneven Surface: 88 1 Step (curb) (QC): 88 4 Steps (QC): 88 12 Steps (QC): 88 Picking up an Object (QC): 88 Wheel 50 feet with 2 turns (QC: 4 Wheel 150 feet: 4 PT Plan Treatment/Plan Treatment Plan: Continue Plan of Care Treatment Plan: Bed Mobility, Education, Functional Activity [place], Functional Strength, Group Therapy, Gait, Safety, Therapeutic Exercise, Transfers Treatment Duration: May 01, 2020 Frequency: At least 5 of 7 days/Wk (IRF) Estimated Hrs Per Day: 1.5 hours per day Patient and/or Family Agrees t: Yes Time/GCodes Time In: 1035 Time Out: 1105 Total Billed Treatment Time: 30 Total Billed Treatment 1, ex, gt JAYCEE MCGUIRE PT May 16, 2020 11:13
--- NOTE | 2020-05-16 14:15 | Speech Therapy Daily Note ---
Speech Daily Progress Note Subjective Date Seen by Provider: May 16, 2020 Time Seen by Provider: 00:30 Patient resting in his recliner following his OT and PT session. He appeared to be very tired, however he did participate well with ST. Objective Patient completed answering simple questions requiring one word answers with 60% given mod cues/repetitions. Assessment Assessment Current Status: Good Progress Treatment Plan Continue Plan of Care Speech Short Term Goals Short Term Goals Short Term Goals 1) The patient will complete OME for improved speech production at each session with 80% or greater accuracy. 2) The patient will complete word finding tasks with 80% or greater accuracy. 3) The patient will complete expressive language tasks 80% or greater accuracy. 4) The patient will tolerate least restrictive diet level without s/s of aspiration at 80% or greater accuracy. 5) The patient will utilize compensatory strategies as trained 80% or greater accuracy. Speech Senior Living Goals Senior Living Goals Patient will improve cognitive-communication abilities for completion of daily needs with minimal assist. Patient will maintain adequate nutrition/hydration via safe effective swallow function. Speech-Plan Patient/Family Goals Patient/Family Goals: Patient plans on returning home, however due to his medical status and daily needs he will temporarily require SNF placement. 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
[2020-05-16 16:19] VITALS: BP 108/66
[2020-05-17 05:52] VITALS: BP 115/76
[2020-05-17] MEDS: ASPIRIN 81 MG CHEW (CHILDREN'S ASA) PO SCH (09:49)
[2020-05-17] MEDS: DOCUSATE SODIUM 100 MG (COLACE) CAP PO SCH ×2 (09:49→20:18)
[2020-05-17] MEDS: GABAPENTIN 400 MG (NEURONTIN) CAP PO SCH ×2 (09:49→20:18)
[2020-05-17] MEDS: BISOPROLOL 5 MG TAB (ZEBETA) PO SCH (09:49)
[2020-05-17] MEDS: SENNA W/DOCUSATE (SENOKOT S) TABLET PO SCH ×2 (09:49→20:18)
[2020-05-17] MEDS: APIXABAN 5 MG (ELIQUIS) TABLET PO SCH ×2 (09:50→20:18)
[2020-05-17] MEDS: polyethylene glycoL POWDER 17 GM (MIRALAX) PACK PO SCH ×2 (09:50→20:18)
[2020-05-17] MEDS: SPIRONOLACTONE 25 MG (ALDACTONE) TAB PO SCH (09:50)
[2020-05-17] MEDS: MICONAZOLE 2% POWDER (DESENEX AF) 90 GM TOP SCH ×2 (09:50→20:24)
[2020-05-17] MEDS: DICLOFENAC 1% GEL 100 GM (VOLTAREN) TUBE TOP SCH ×4 (09:51→20:21)
--- NOTE | 2020-05-17 11:45 | PM&R Progress Note ---
Subjective HPI/CC On Admission Date Seen by Provider: May 17, 2020 Time Seen by Provider: 10:00 Subjective/Events-last exam 05/17/20: Making major progress as we wait on NH No pain reported 05/16/20: Making true progress with walking with walker hemitype No pain 05/15/20: No issues Awaiting placement 05/14/20: Pt is talking better Saw pt in the gym Lungs remain clear No new issues Awaiting placement Improved speech 05/13/20: Awaiting placement Labs ok 05/12/20: Awaiting placement 05/11/20: Monitor pain 05/10/20: NH did not accept patient after all 05/09/20: Awaiting NHP maybe tomorrow : No significant change Working pretty well with therapy Expressive aphasia makes it difficult to communicate 05/07/20: Suppository given due to no BM for four days Urinating in the urinal now Butt-paste maintained for skin protection 05/06/20: Pt doing pretty well Awaiting usp placement Labs remain stable Overall doing well 05/05/20: No changes Right sided pain still present Awaiting placement in NH 05/04/20: No major issues BM yesterday no supp used 05/02/20: No major changes More alert today In chair today No BM for several days and refuses suppository 05/01/20: No major changes Refuses suppository Pain on the right side continues Incontinent Sister did family training and felt like he will need to go to a nursing facility [facility] was sent a referral 04/30/20: No major changes Laxatives were refused and he is having a BM every other day without the suppository Denies any significant new issues 04/29/20: Patient reports no major issues No pain reported Pain meds are helpful 04/28/20: Periarea red so will start antifungal powder No pain reported otherwise Incontinence will require 14/12 nursing care along with severe deficit 04/27/2020: Incontinence of both bowel and bladder are limitations Denies any significant new issues Pain is pretty well controlled on the right side for flaccidity muscle spasms 04/26/2020: Patient denies any pain Incontinence requires nursing care 14/12 Pain is pretty well controlled Expressive aphasia makes it difficult to communicate 04/25/20: No major issues Pain controlled Participation with PT 04/24/20: Pt doing pretty well Bowels move after suppository every 48 hrs Decreasing pain medication Decreasing Cozaar due to hypotension per cardiology 04/23/20: BM after suppository every 48hrs Gabapentin BID seems to be working pretty well Using Oxycodone when Gabapentin is not enough No falls 04/22/20: No major issues Expressive aphasia continues Bowels moved yesterday after suppository given every 48 hours 04/21/20: Suppository today and BM Incontinent of B/B Pain improved Does not need to increase Gabapentin 04/20/20: BM yesterday Pain improved Sleepy today Doing better Incontinence : Improve right sided nerve pain Xanax and pain pill helps him BM after suppository Q 48 hours Incontinent of B/B 04/18/20: BM 04/17/20 Eliquis causes blurry vision per sister so will inquire with Dr Gibson regarding Xarelto Incontinent 04/17/20: Bowels not moving so will initiate Dulcolax suppository every 48hrs after laxatives given and he is agreeable for that plan Denies any significant new issues Pain is getting much better with the Gabapentin twice daily and Oxycodone 04/16/20: Right-sided pain still so increased Gabapentin to 300 Mg BID Xanax will help too Oxycodone also helps 04/15/20: Gabapentin maintained Oxycodone maintained Confusion noted? 04/14/20: Monitoring BP Pain right side still present and will increase Gabapentin 04/13/20: Right arm and right leg pain and issue Oxycodone not really helping Nerve pain so will give Gabapentin 04/12/20: Severe pain on right side Oxycodone ordered Participating in therapies well No other pain Pt doing pretty well Expressive aphasia is an issue WBC is 12.4 CMP normal Consulting cardiology Overall doing very well Conferred with RN Checked meds and labs Reviewed therapy notes Review of Systems Neurological: Weakness, Incoordination Objective Exam Vital Signs Vital Signs Date Time Temp Pulse Resp B/P (MAP) Pulse Ox O2 Delivery O2 Flow Rate FiO2 05/17/20 16:44 36.4 80 16 140/91 (107) 96 05/17/20 08:55 Room Air Capillary Refill : Less Than 3 Seconds General Appearance: No Apparent Distress, WD/WN, Chronically ill HEENT: PERRL/EOMI, Normal ENT Inspection, Pharynx Normal Neck: Full Range of Motion, Normal Inspection, Non Tender, Supple, Carotid Bruit Respiratory: Chest Non Tender, Lungs Clear, Normal Breath Sounds, No Accessory Muscle Use, No Respiratory Distress Cardiovascular: Regular Rate, Rhythm, No Edema, No Gallop, No JVD, No Murmur, Normal Peripheral Pulses Gastrointestinal: Normal Bowel Sounds, No Organomegaly, No Pulsatile Mass, Non Tender, Soft Back: Normal Inspection, No CVA Tenderness, No Vertebral Tenderness Extremity: Normal Capillary Refill, Normal Inspection, Normal Range of Motion, Non Tender, No Calf Tenderness, No Pedal Edema Neurologic/Psychiatric: Alert, Normal Mood/Affect, Abnormal Gait, Aphasia, Depressed Affect, Disoriented, Motor Weakness (right sided flaccidity) Skin: Normal Color, Warm/Dry Lymphatic: No Adenopathy Results/Procedures Lab Patient resulted labs reviewed. FIM Transfers Therapy Code Descriptions/Definitions Functional [place] Measure: 0=Not Assessed/NA 4=Minimal Assistance 1=Total Assistance 5=Supervision or Setup 2=Maximal Assistance 6=Modified [place] 3=Moderate Assistance 7=Complete IndependenceSCALE: Activities may be completed with or without assistive devices. 4-Kcqgyxinkz-aloggne completes the activity by him/herself with no assistance from a helper. 5-Set-up or Clean-up Assistance-helper sets up or cleans up; patient completes activity. [place] assists only prior to or following the activity. 4-Supervision or Touching Assistance-helper provides verbal cues and/or touching/steadying and/or contact guard assistance as patient completes activity. Assistance may be provided throughout the activity or intermittently. 3-Partial/Moderate Assistance-helper does LESS THAN HALF the effort. [place] lifts, holds or supports trunk or limbs, but provides less than half the effort. 2-Substantial/Maximal Assistance-helper does MORE THAN HALF the effort. [place] lifts or holds trunk or limbs and provides more than half the effort. 2-Wtgldhere-uyzxvx does ALL the effort. Patient does none of the effort to complete the activity. Or, the assistance of 2 or more helpers is required for the patient to complete the activity. If activity was not attempted, code reason: 7-Patient Refused. 9-Not Applicable-not attempted and the patient did not perform the activity before the current illness, exacerbation or injury. 10-Not Attempted due to Environmental Limitations-(lack of equipment, weather restraints, etc.). 88-Not Attempted due to Medical Conditions or Safety Concerns. Roll Left to Right (QC): 5 Sit to Lying (QC): 5 Sit to Stand (QC): 5 Chair/Bqp-qm-Lhgff Xfer(QC): 4 Car Transfer (QC): 4 Gait Training Does the Patient Walk?: Yes Distance: 32ft, 20ft, 60ft Walk 10 feet (QC): 3 Walk 50 ft with 2 Turns(QC): 3 Walk 150 ft (QC): 88 Walking 10ft/uneven surface-QC: 88 Gait Persons Needed: 1 Gait Assistive Device: Walker Jose Wheelchair Training Does the Pt Use a Wheelchair?: Yes Wheel 50 ft with 2 turns (QC): 5 Wheel 150 ft (QC): 5 Type of Wheelchair: Manual Stair Training 1 Step (curb) (QC): 9 4 Steps (QC): 9 12 Steps (QC): 9 Balance Picking up an Object (QC): 88 ADL-Treatment Eating (QC): 6 Oral Hygiene (QC): 6 (completes in w/c with IND) Bathing Location: L Arm, R Arm, L Upper Leg, R Upper Leg, L Lower Leg (including foot), R Lower Leg (including foot), Chest, Abdomen, Buttocks, Perineal Area Shower/Bathe Self (QC): 4 (SBA-CGA intermittently, completes all areas.) Upper Body Dressing (QC): 3 (min A R side.) Lower Body Dressing (QC): 2 (max A: Pt able to thread RLE with assist to support RLE on knee, pt completes LLE and in stance (CGA) pt requires full assist to hand assembler for puller over hips to maintain balance at gbs.) On/Off Footwear (QC): 3 (mod A RLE) Toileting Hygiene (QC): 1 (TD due to 2 person assist this am.) Toilet Transfer (QC): 3 (min A.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 Defib in place Cardiomyopathy HTN Plan: Monitor dysphagia Cardiology consultation IRF protocol 04/11/20: Monitor BP Appreciate Cardiology 04/12/20: Monitor closely Pain management 04/13/20: Gabapentin Oxycodone 04/14/20: Increase Gabapentin Oxycodone BM regimen to increase today may need supp 04/15/20: BM++ Monitor pain of right side 04/16/20: Increase dose of Neurontin Maintain aggressive rehab 04/17/20: BM regimen to include supp Q48 hrs Monitor pain Monitor BP 04/18/20: Increased Gabpentin some more today BM regimen 04/19/20: Manage incontinence Right arm and right leg pain management 04/20/20: Maintain pain control Incontinence management BM regimen 04/21/20: Suppository [id number] Monitor closely Pain control 04/22/20: Continue BM regimen Monitor right sided pain 04/23/20: BM regimen PT OT Incontinence care 04/24/20: Monitor BP Fall risk BM regimen 04/25/20: No med changes Pain controlled 04/26/2020: Pain management Bowel regimen with suppository every 48 hours Continue intensive therapy 04/27/2020: Aggressive therapy Incontinence care Pain control 04/28/20: Monitor closely Periarea powder Monitor pain Check labs in am 04/29/20: Labs reviewed Monitor pain issues 04/30/20: Continue therapy Needs dispo 05/01/20: DC to NH at DC Monitor closely Pain continues and difficult to ascertain due to expressive aphasia 05/02/20: Pain control Incontinence care Needs NH placement 05/04/20: Monitor BM Needs NH 05/05/20: Incontinence care 05/06/20: Await NHP Labs normal 05/07/20: DC to NH once accepted 05/08/20: Monitor closely 05/09/20: Monitor pain NHP 05/10/20: VCV qamar care requested for DC 05/11/20: Maintain pain control Monitor BP 05/12/20: Improved function slowly 05/13/20: Monitor BP 05/14/20: Await NHP 05/15/20: No concerns 05/16/20: Monitor closely Improved ambulation 05/17/20: Continue aggressive PT/OT/ST (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
[2020-05-17 16:44] VITALS: BP 140/91
--- NOTE | 2020-05-17 19:03 | NUR ---
Bedside report received from LEIDY MARSHALL, assume care of pt
--- NOTE | 2020-05-17 20:21 | NUR ---
All laxatives given to pt, takes meds well with thickened oj, refused pain med but did take Voltaren gel, refused Desenex, rates pain level 4/10 on numeric scale
--- NOTE | 2020-05-17 21:00 | NUR ---
Rates pain level 3/10 on numeric scale
[2020-05-18 05:36] VITALS: BP 106/69
--- NOTE | 2020-05-18 07:30 | PM&R Progress Note ---
Subjective HPI/CC On Admission Date Seen by Provider: May 18, 2020 Time Seen by Provider: 13:50 Subjective/Events-last exam 05/18/20: No new issues 05/17/20: Making major progress as we wait on NH No pain reported 05/16/20: Making true progress with walking with walker hemitype No pain 05/15/20: No issues Awaiting placement 05/14/20: Pt is talking better Saw pt in the gym Lungs remain clear No new issues Awaiting placement Improved speech 05/13/20: Awaiting placement Labs ok 05/12/20: Awaiting placement 05/11/20: Monitor pain 05/10/20: NH did not accept patient after all 05/09/20: Awaiting NHP maybe tomorrow : No significant change Working pretty well with therapy Expressive aphasia makes it difficult to communicate 05/07/20: Suppository given due to no BM for four days Urinating in the urinal now Butt-paste maintained for skin protection 05/06/20: Pt doing pretty well Awaiting senior living placement Labs remain stable Overall doing well 05/05/20: No changes Right sided pain still present Awaiting placement in NH 05/04/20: No major issues BM yesterday no supp used 05/02/20: No major changes More alert today In chair today No BM for several days and refuses suppository 05/01/20: No major changes Refuses suppository Pain on the right side continues Incontinent Sister did family training and felt like he will need to go to a nursing facility [facility] was sent a referral 04/30/20: No major changes Laxatives were refused and he is having a BM every other day without the suppository Denies any significant new issues 04/29/20: Patient reports no major issues No pain reported Pain meds are helpful 04/28/20: Periarea red so will start antifungal powder No pain reported otherwise Incontinence will require 14/12 nursing care along with severe deficit 04/27/2020: Incontinence of both bowel and bladder are limitations Denies any significant new issues Pain is pretty well controlled on the right side for flaccidity muscle spasms 04/26/2020: Patient denies any pain Incontinence requires nursing care 14/12 Pain is pretty well controlled Expressive aphasia makes it difficult to communicate 04/25/20: No major issues Pain controlled Participation with PT 04/24/20: Pt doing pretty well Bowels move after suppository every 48 hrs Decreasing pain medication Decreasing Cozaar due to hypotension per cardiology 04/23/20: BM after suppository every 48hrs Gabapentin BID seems to be working pretty well Using Oxycodone when Gabapentin is not enough No falls 04/22/20: No major issues Expressive aphasia continues Bowels moved yesterday after suppository given every 48 hours 04/21/20: Suppository today and BM Incontinent of B/B Pain improved Does not need to increase Gabapentin 04/20/20: BM yesterday Pain improved Sleepy today Doing better Incontinence : Improve right sided nerve pain Xanax and pain pill helps him BM after suppository Q 48 hours Incontinent of B/B 04/18/20: BM 04/17/20 Eliquis causes blurry vision per sister so will inquire with Dr Gibson regarding Xarelto Incontinent 04/17/20: Bowels not moving so will initiate Dulcolax suppository every 48hrs after laxatives given and he is agreeable for that plan Denies any significant new issues Pain is getting much better with the Gabapentin twice daily and Oxycodone 04/16/20: Right-sided pain still so increased Gabapentin to 300 Mg BID Xanax will help too Oxycodone also helps 04/15/20: Gabapentin maintained Oxycodone maintained Confusion noted? 04/14/20: Monitoring BP Pain right side still present and will increase Gabapentin 04/13/20: Right arm and right leg pain and issue Oxycodone not really helping Nerve pain so will give Gabapentin 04/12/20: Severe pain on right side Oxycodone ordered Participating in therapies well No other pain Pt doing pretty well Expressive aphasia is an issue WBC is 12.4 CMP normal Consulting cardiology Overall doing very well Conferred with RN Checked meds and labs Reviewed therapy notes Review of Systems Neurological: Weakness, Incoordination Objective Exam Vital Signs Vital Signs Date Time Temp Pulse Resp B/P (MAP) Pulse Ox O2 Delivery O2 Flow Rate FiO2 05/18/20 17:13 36.6 80 20 108/66 (80) 100 Room Air Capillary Refill : Less Than 3 Seconds General Appearance: No Apparent Distress, WD/WN, Chronically ill HEENT: PERRL/EOMI, Normal ENT Inspection, Pharynx Normal Neck: Full Range of Motion, Normal Inspection, Non Tender, Supple, Carotid Bruit Respiratory: Chest Non Tender, Lungs Clear, Normal Breath Sounds, No Accessory Muscle Use, No Respiratory Distress Cardiovascular: Regular Rate, Rhythm, No Edema, No Gallop, No JVD, No Murmur, Normal Peripheral Pulses Gastrointestinal: Normal Bowel Sounds, No Organomegaly, No Pulsatile Mass, Non Tender, Soft Back: Normal Inspection, No CVA Tenderness, No Vertebral Tenderness Extremity: Normal Capillary Refill, Normal Inspection, Normal Range of Motion, Non Tender, No Calf Tenderness, No Pedal Edema Neurologic/Psychiatric: Alert, Normal Mood/Affect, Abnormal Gait, Aphasia, Depressed Affect, Disoriented, Motor Weakness (right sided flaccidity) Skin: Normal Color, Warm/Dry Lymphatic: No Adenopathy Results/Procedures Lab Patient resulted labs reviewed. FIM Transfers Therapy Code Descriptions/Definitions Functional [place] Measure: 0=Not Assessed/NA 4=Minimal Assistance 1=Total Assistance 5=Supervision or Setup 2=Maximal Assistance 6=Modified [place] 3=Moderate Assistance 7=Complete IndependenceSCALE: Activities may be completed with or without assistive devices. 4-Ttcmashlag-pheulxy completes the activity by him/herself with no assistance from a helper. 5-Set-up or Clean-up Assistance-helper sets up or cleans up; patient completes activity. [place] assists only prior to or following the activity. 4-Supervision or Touching Assistance-helper provides verbal cues and/or touching/steadying and/or contact guard assistance as patient completes activity. Assistance may be provided throughout the activity or intermittently. 3-Partial/Moderate Assistance-helper does LESS THAN HALF the effort. [place] lifts, holds or supports trunk or limbs, but provides less than half the effort. 2-Substantial/Maximal Assistance-helper does MORE THAN HALF the effort. [place] lifts or holds trunk or limbs and provides more than half the effort. 4-Euuibtkvb-tmgxww does ALL the effort. Patient does none of the effort to complete the activity. Or, the assistance of 2 or more helpers is required for the patient to complete the activity. If activity was not attempted, code reason: 7-Patient Refused. 9-Not Applicable-not attempted and the patient did not perform the activity before the current illness, exacerbation or injury. 10-Not Attempted due to Environmental Limitations-(lack of equipment, weather restraints, etc.). 88-Not Attempted due to Medical Conditions or Safety Concerns. Roll Left to Right (QC): 5 Sit to Lying (QC): 5 Sit to Stand (QC): 5 Chair/Cve-sm-Lnbcc Xfer(QC): 4 Car Transfer (QC): 4 Gait Training Does the Patient Walk?: Yes Distance: 32ft, 20ft, 60ft Walk 10 feet (QC): 3 Walk 50 ft with 2 Turns(QC): 3 Walk 150 ft (QC): 88 Walking 10ft/uneven surface-QC: 88 Gait Persons Needed: 1 Gait Assistive Device: Walker Jose Wheelchair Training Does the Pt Use a Wheelchair?: Yes Wheel 50 ft with 2 turns (QC): 5 Wheel 150 ft (QC): 5 Type of Wheelchair: Manual Stair Training 1 Step (curb) (QC): 9 4 Steps (QC): 9 12 Steps (QC): 9 Balance Picking up an Object (QC): 88 ADL-Treatment Eating (QC): 6 Oral Hygiene (QC): 6 (completes in w/c with IND) Bathing Location: L Arm, R Arm, L Upper Leg, R Upper Leg, L Lower Leg (including foot), R Lower Leg (including foot), Chest, Abdomen, Buttocks, Perineal Area Shower/Bathe Self (QC): 4 (SBA-CGA intermittently, completes all areas.) Upper Body Dressing (QC): 3 (min A R side.) Lower Body Dressing (QC): 2 (max A: Pt able to thread RLE with assist to support RLE on knee, pt completes LLE and in stance (CGA) pt requires full assist to bleach boiler puller hips to maintain balance at gbs.) On/Off Footwear (QC): 3 (mod A RLE) Toileting Hygiene (QC): 1 (TD due to 2 person assist this am.) Toilet Transfer (QC): 3 (min A.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 Defib in place Cardiomyopathy HTN Plan: Monitor dysphagia Cardiology consultation IRF protocol 04/11/20: Monitor BP Appreciate Cardiology 04/12/20: Monitor closely Pain management 04/13/20: Gabapentin Oxycodone 04/14/20: Increase Gabapentin Oxycodone BM regimen to increase today may need supp 04/15/20: BM++ Monitor pain of right side 04/16/20: Increase dose of Neurontin Maintain aggressive rehab 04/17/20: BM regimen to include supp Q48 hrs Monitor pain Monitor BP 04/18/20: Increased Gabpentin some more today BM regimen 04/19/20: Manage incontinence Right arm and right leg pain management 04/20/20: Maintain pain control Incontinence management BM regimen 04/21/20: Suppository [id number] Monitor closely Pain control 04/22/20: Continue BM regimen Monitor right sided pain 04/23/20: BM regimen PT OT Incontinence care 04/24/20: Monitor BP Fall risk BM regimen 04/25/20: No med changes Pain controlled 04/26/2020: Pain management Bowel regimen with suppository every 48 hours Continue intensive therapy 04/27/2020: Aggressive therapy Incontinence care Pain control 04/28/20: Monitor closely Periarea powder Monitor pain Check labs in am 04/29/20: Labs reviewed Monitor pain issues 04/30/20: Continue therapy Needs dispo 05/01/20: DC to NH at DC Monitor closely Pain continues and difficult to ascertain due to expressive aphasia 05/02/20: Pain control Incontinence care Needs NH placement 05/04/20: Monitor BM Needs NH 05/05/20: Incontinence care 05/06/20: Await NHP Labs normal 05/07/20: DC to NH once accepted 05/08/20: Monitor closely 05/09/20: Monitor pain NHP 05/10/20: VCV qamar care requested for DC 05/11/20: Maintain pain control Monitor BP 05/12/20: Improved function slowly 05/13/20: Monitor BP 05/14/20: Await NHP 05/15/20: No concerns 05/16/20: Monitor closely Improved ambulation 05/17/20: Continue aggressive PT/OT/ST 05/18/20: Monitor closely (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
[2020-05-18] MEDS: BISOPROLOL 5 MG TAB (ZEBETA) PO SCH (08:19)
[2020-05-18] MEDS: SPIRONOLACTONE 25 MG (ALDACTONE) TAB PO SCH (08:19)
[2020-05-18] MEDS: APIXABAN 5 MG (ELIQUIS) TABLET PO SCH ×2 (08:19→22:01)
[2020-05-18] MEDS: GABAPENTIN 400 MG (NEURONTIN) CAP PO SCH ×2 (08:19→22:00)
[2020-05-18] MEDS: ASPIRIN 81 MG CHEW (CHILDREN'S ASA) PO SCH (08:19)
[2020-05-18] MEDS: SENNA W/DOCUSATE (SENOKOT S) TABLET PO SCH ×2 (08:19→22:00)
[2020-05-18] MEDS: DICLOFENAC 1% GEL 100 GM (VOLTAREN) TUBE TOP SCH ×4 (08:20→22:01)
[2020-05-18] MEDS: MICONAZOLE 2% POWDER (DESENEX AF) 90 GM TOP SCH ×2 (08:21→22:02)
[2020-05-18] MEDS: DOCUSATE SODIUM 100 MG (COLACE) CAP PO SCH ×2 (08:57→22:01)
--- NOTE | 2020-05-18 09:30 | Physical Therapy Daily Note ---
PT Daily Note-Current Subjective Agreeable to PT. No comoplaints. Interactive with conversation Transfers SCALE: Activities may be completed with or without assistive devices. 8-Drvrrqcnea-bkwgesc completes the activity by him/herself with no assistance from a helper. 5-Set-up or Clean-up Assistance-helper sets up or cleans up; patient completes activity. [place] assists only prior to or following the activity. 4-Supervision or Touching Assistance-helper provides verbal cues and/or touching/steadying and/or contact guard assistance as patient completes activit y. Assistance may be provided throughout the activity or intermittently. 3-Partial/Moderate Assistance-helper does LESS THAN HALF the effort. [place] lifts, holds or supports trunk or limbs, but provides less than half the effort. 2-Substantial/Maximal Assistance-helper does MORE THAN HALF the effort. [place] lifts or holds trunk or limbs and provides more than half the effort. 6-Bkqaujovi-cpxxwq does ALL the effort. Patient does none of the effort to complete the activity. Or, the assistance of 2 or more helpers is required for the patient to complete the activity. If activity was not attempted, code reason: 7-Patient Refused. 9-Not Applicable-not attempted and the patient did not perform the activity before the current illness, exacerbation or injury. 10-Not Attempted due to Environmental Limitations-(lack of equipment, weather restraints, etc.). 88-Not Attempted due to Medical Conditions or Safety Concerns. Sit to Stand (QC): 3 (min assist x multiple reps.) Chair/Mnt-hi-Xetts Xfer(QC): 3 Toilet Transfer (QC): 3 Toileted; able to pull up from rail by toilet and hold as this PT managed pericare and clothing; min assist to stand and CGA to maintain balance. Weight Bearing Full Weight Bearing Full Weight Bearing Gait Training Walk 10 feet (QC): 3 (britni cane in room x 2 reps. ) Wheelchair Training Does the Pt Use a Wheelchair?: Yes Wheel 150 ft (QC): 5 (Pt proopelled self 200 ft, 200f t and 500 ft with set up assist; able to manage brakes. ) Exercises PROM right UE using left UE to facilitate. Left UE strength for shoulder with resisitance on all planes. Neuromuscular Trunk stability with leaning forward and back and sitting upright for maintenance of balance as he brushed his teeth and washed hands. Assessment Current Status: Good Progress ABle to sequence and initiate tasks. progressing. Transfers continue to improve and he seems to be aware of safety issues. PT Short Term Goals Short Term Goals Time Frame: Apr 18, 2020 Roll Left & Right: 3 Sit to lyin Lying to sitting on side of be: 3 Sit to stand: 3 Chair/les-rb-ulsnd transfer: 3 PT Barrel Reamer Goals Barrel Reamer Goals PT Halfway Goals Time Frame: May 02, 2020 Roll Left & Right (QC): 4 Sit to Lying (QC): 4 Lying-Sitting on Side/Bed(QC): 4 Sit to Stand (QC): 3 (Zoya) Chair/Rvj-tb-Venrs Xfer(QC): 3 (Zoya) Toilet Transfer (QC): 3 (Zoya) Car Transfer (QC): 3 (Zoya) Does the Patient Walk: No and Walking Goal NOT indicated Walk 10 feet (QC): 88 Walk 50ft with 2 Turns (QC): 88 Walk 150 ft (QC): 88 Walking 10ft on Uneven Surface: 88 1 Step (curb) (QC): 88 4 Steps (QC): 88 12 Steps (QC): 88 Picking up an Object (QC): 88 Wheel 50 feet with 2 turns (QC: 4 Wheel 150 feet: 4 PT Plan Problem List Problem List: Activity Tolerance, Functional Strength, Safety, Balance, Gait, Transfer Treatment/Plan Treatment Plan: Continue Plan of Care Treatment Plan: Bed Mobility, Education, Functional Activity [place], Functional Strength, Group Therapy, Gait, Safety, Therapeutic Exercise, Transfers Treatment Duration: May 01, 2020 Frequency: At least 5 of 7 days/Wk (IRF) Estimated Hrs Per Day: 1.5 hours per day Patient and/or Family Agrees t: Yes Safety Risks/Education Patient Education: Transfer Techniques, Safety Issues Teaching Recipient: Patient Teaching Methods: Demonstration, Discussion Response to Teaching: Return Demonstration Discharge Recommendations Therapy Discharge Recommendati: Post Acute PT Time/GCodes Time In: 830 Time Out: 930 Total Billed Treatment Time: 60 Total Billed Treatment visit WC 30 FA 15 EX 15 SRIDHAR ARNETT PT May 18, 2020 09:30
--- NOTE | 2020-05-18 11:17 | Physical Therapy Daily Note ---
PT Daily Note-Current Subjective Pt is in the chair and agreeable to ambulation training and exercise. Mental Status Patient Orientation: Person, Place, Time, Situation Transfers SCALE: Activities may be completed with or without assistive devices. 2-Rtqatchqat-nnxchen completes the activity by him/herself with no assistance from a helper. 5-Set-up or Clean-up Assistance-helper sets up or cleans up; patient completes activity. [place] assists only prior to or following the activity. 4-Supervision or Touching Assistance-helper provides verbal cues and/or touching/steadying and/or contact guard assistance as patient completes activity. Assistance may be provided throughout the activity or intermittently. 3-Partial/Moderate Assistance-helper does LESS THAN HALF the effort. [place] lifts, holds or supports trunk or limbs, but provides less than half the effort. 2-Substantial/Maximal Assistance-helper does MORE THAN HALF the effort. [place] lifts or holds trunk or limbs and provides more than half the effort. 7-Xkcmsjcdk-bfiaet does ALL the effort. Patient does none of the effort to complete the activity. Or, the assistance of 2 or more helpers is required for the patient to complete the activity. If activity was not attempted, code reason: 7-Patient Refused. 9-Not Applicable-not attempted and the patient did not perform the activity before the current illness, exacerbation or injury. 10-Not Attempted due to Environmental Limitations-(lack of equipment, weather restraints, etc.). 88-Not Attempted due to Medical Conditions or Safety Concerns. Sit to Stand (QC): 4 Weight Bearing Full Weight Bearing Full Weight Bearing Gait Training Does the Patient Walk?: Yes Distance: 102ft, 86ft Walk 10 feet (QC): 3 Walk 50 ft with 2 Turns(QC): 3 Gait Persons Needed: 1 Gait Assistive Device: FWW Wheelchair Training Does the Pt Use a Wheelchair?: Yes Wheel 50 ft with 2 turns (QC): 5 Type of Wheelchair: Manual Stair Training Stair Training: Handrails/: 1 handrail #of Steps: 1 1 Step (curb) (QC): 3 Exercises Seated Therapy Exercises: Ankle pumps, Long arc quads, Hip flexion, Hamstring Curls Seated Reps: [address] Ex=Flex, Abd, Ext, Marching, Mini squats, Sit to Stand, Side steps, Step-ups Standing Reps: 15 Pt was able to complete step ups on the pink step 20x for each. Pt was highly motivated to perform the step ups. Treatments Worked on wt shifting to incorporate (R) UE wt bearing during gait. Assessment Current Status: Good Progress Pt was able to improve gait to 102ft today without resting. He was aware when the (R) LE would not advance, and he would correct it (I). PT Short Term Goals Short Term Goals Time Frame: Apr 18, 2020 Roll Left & Right: 3 Sit to lyin Lying to sitting on side of be: 3 Sit to stand: 3 Chair/ooc-nd-zsrqj transfer: 3 PT Contract Writer Goals Contract Writer Goals PT Prison Goals Time Frame: May 02, 2020 Roll Left & Right (QC): 4 Sit to Lying (QC): 4 Lying-Sitting on Side/Bed(QC): 4 Sit to Stand (QC): 3 (Zoya) Chair/Duu-jd-Mqwll Xfer(QC): 3 (Zoya) Toilet Transfer (QC): 3 (Zoya) Car Transfer (QC): 3 (Zoya) Does the Patient Walk: No and Walking Goal NOT indicated Walk 10 feet (QC): 88 Walk 50ft with 2 Turns (QC): 88 Walk 150 ft (QC): 88 Walking 10ft on Uneven Surface: 88 1 Step (curb) (QC): 88 4 Steps (QC): 88 12 Steps (QC): 88 Picking up an Object (QC): 88 Wheel 50 feet with 2 turns (QC: 4 Wheel 150 feet: 4 PT Plan Treatment/Plan Treatment Plan: Continue Plan of Care Treatment Plan: Bed Mobility, Education, Functional Activity [place], Functional Strength, Group Therapy, Gait, Safety, Therapeutic Exercise, Transfers Treatment Duration: May 01, 2020 Frequency: At least 5 of 7 days/Wk (IRF) Estimated Hrs Per Day: 1.5 hours per day Patient and/or Family Agrees t: Yes Time/GCodes Time In: 1004 Time Out: 1104 Total Billed Treatment Time: 60 Total Billed Treatment 1, ex x3, gt JAYCEE MCGUIRE PT May 18, 2020 11:17
[2020-05-18] MEDS: polyethylene glycoL POWDER 17 GM (MIRALAX) PACK PO SCH ×2 (12:02→22:00)
--- NOTE | 2020-05-18 13:35 | Therapy Group Daily Note ---
Therapy Daily Group Note Patient Education Topic Energy Cons, Exercises, ADL Exercises LE Seated Exercise, Sit to/from Stand, Stretching, UE Exercise Session Ratio (pt:therapist): 3:1 Goal of Session: Education on ARU Expectations, Energy Conservation Tech., UE/LE Strengthing, Use of Adaptive Equipment Be aware of the need to conserve energy to allow for completion of important tasks at home. To understand the need for continued physical activity upon discharge to home. Goal Met for this Session: Yes Pt Benefit of Group: Contributions to Others, Increased Functional Strength, Improved Cognition, Socialization Practiced word finding and speech through peer interaction in a group setting. Reinforced home exercises through allowing him the opportunity to demonstrate to the group. Start Time: 12:30 Stop Time: 13:30 Total Billed Treatment Time: 60 Total Billed Treatment visit, group 60 min YELENA TO PT May 18, 2020 13:35
[2020-05-18 17:13] VITALS: BP 108/66
[2020-05-19 05:38] VITALS: BP 100/63
--- NOTE | 2020-05-19 06:41 | PM&R Progress Note ---
Subjective HPI/CC On Admission Date Seen by Provider: May 19, 2020 Time Seen by Provider: 14:00 Subjective/Events-last exam 05/19/20: Pain management today Right sided pain BM++ 05/18/20: No new issues 05/17/20: Making major progress as we wait on NH No pain reported 05/16/20: Making true progress with walking with walker hemitype No pain 05/15/20: No issues Awaiting placement 05/14/20: Pt is talking better Saw pt in the gym Lungs remain clear No new issues Awaiting placement Improved speech 05/13/20: Awaiting placement Labs ok 05/12/20: Awaiting placement 05/11/20: Monitor pain 05/10/20: NH did not accept patient after all 05/09/20: Awaiting NHP maybe tomorrow : No significant change Working pretty well with therapy Expressive aphasia makes it difficult to communicate 05/07/20: Suppository given due to no BM for four days Urinating in the urinal now Butt-paste maintained for skin protection 05/06/20: Pt doing pretty well Awaiting jail placement Labs remain stable Overall doing well 05/05/20: No changes Right sided pain still present Awaiting placement in NH 05/04/20: No major issues BM yesterday no supp used 05/02/20: No major changes More alert today In chair today No BM for several days and refuses suppository 05/01/20: No major changes Refuses suppository Pain on the right side continues Incontinent Sister did family training and felt like he will need to go to a nursing facility [facility] was sent a referral 04/30/20: No major changes Laxatives were refused and he is having a BM every other day without the suppository Denies any significant new issues 04/29/20: Patient reports no major issues No pain reported Pain meds are helpful 04/28/20: Periarea red so will start antifungal powder No pain reported otherwise Incontinence will require 14/12 nursing care along with severe deficit 04/27/2020: Incontinence of both bowel and bladder are limitations Denies any significant new issues Pain is pretty well controlled on the right side for flaccidity muscle spasms 04/26/2020: Patient denies any pain Incontinence requires nursing care 14/12 Pain is pretty well controlled Expressive aphasia makes it difficult to communicate 04/25/20: No major issues Pain controlled Participation with PT 04/24/20: Pt doing pretty well Bowels move after suppository every 48 hrs Decreasing pain medication Decreasing Cozaar due to hypotension per cardiology 04/23/20: BM after suppository every 48hrs Gabapentin BID seems to be working pretty well Using Oxycodone when Gabapentin is not enough No falls 04/22/20: No major issues Expressive aphasia continues Bowels moved yesterday after suppository given every 48 hours 04/21/20: Suppository today and BM Incontinent of B/B Pain improved Does not need to increase Gabapentin 04/20/20: BM yesterday Pain improved Sleepy today Doing better Incontinence : Improve right sided nerve pain Xanax and pain pill helps him BM after suppository Q 48 hours Incontinent of B/B 04/18/20: BM 04/17/20 Eliquis causes blurry vision per sister so will inquire with Dr Gibson regarding Xarelto Incontinent 04/17/20: Bowels not moving so will initiate Dulcolax suppository every 48hrs after laxatives given and he is agreeable for that plan Denies any significant new issues Pain is getting much better with the Gabapentin twice daily and Oxycodone 04/16/20: Right-sided pain still so increased Gabapentin to 300 Mg BID Xanax will help too Oxycodone also helps 04/15/20: Gabapentin maintained Oxycodone maintained Confusion noted? 04/14/20: Monitoring BP Pain right side still present and will increase Gabapentin 04/13/20: Right arm and right leg pain and issue Oxycodone not really helping Nerve pain so will give Gabapentin 04/12/20: Severe pain on right side Oxycodone ordered Participating in therapies well No other pain Pt doing pretty well Expressive aphasia is an issue WBC is 12.4 CMP normal Consulting cardiology Overall doing very well Conferred with RN Checked meds and labs Reviewed therapy notes Review of Systems General: Fatigue, Malaise Neurological: Weakness, Incoordination Objective Exam Vital Signs Vital Signs Date Time Temp Pulse Resp B/P (MAP) Pulse Ox O2 Delivery O2 Flow Rate FiO2 05/19/20 17:25 36.6 83 18 110/74 (86) 98 Room Air Capillary Refill : Less Than 3 Seconds General Appearance: No Apparent Distress, WD/WN, Chronically ill HEENT: PERRL/EOMI, Normal ENT Inspection, Pharynx Normal Neck: Full Range of Motion, Normal Inspection, Non Tender, Supple, Carotid Bruit Respiratory: Chest Non Tender, Lungs Clear, Normal Breath Sounds, No Accessory Muscle Use, No Respiratory Distress Cardiovascular: Regular Rate, Rhythm, No Edema, No Gallop, No JVD, No Murmur, Normal Peripheral Pulses Gastrointestinal: Normal Bowel Sounds, No Organomegaly, No Pulsatile Mass, Non Tender, Soft Back: Normal Inspection, No CVA Tenderness, No Vertebral Tenderness Extremity: Normal Capillary Refill, Normal Inspection, Normal Range of Motion, Non Tender, No Calf Tenderness, No Pedal Edema Neurologic/Psychiatric: Alert, Normal Mood/Affect, Abnormal Gait, Aphasia, Depressed Affect, Disoriented, Motor Weakness (right sided flaccidity) Skin: Normal Color, Warm/Dry Lymphatic: No Adenopathy Results/Procedures Lab Patient resulted labs reviewed. FIM Transfers Therapy Code Descriptions/Definitions Functional [place] Measure: 0=Not Assessed/NA 4=Minimal Assistance 1=Total Assistance 5=Supervision or Setup 2=Maximal Assistance 6=Modified [place] 3=Moderate Assistance 7=Complete IndependenceSCALE: Activities may be completed with or without assistive devices. 6-Tydcfcocsv-ildywnc completes the activity by him/herself with no assistance from a helper. 5-Set-up or Clean-up Assistance-helper sets up or cleans up; patient completes activity. [place] assists only prior to or following the activity. 4-Supervision or Touching Assistance-helper provides verbal cues and/or touching/steadying and/or contact guard assistance as patient completes activity. Assistance may be provided throughout the activity or intermittently. 3-Partial/Moderate Assistance-helper does LESS THAN HALF the effort. [place] lifts, holds or supports trunk or limbs, but provides less than half the effort. 2-Substantial/Maximal Assistance-helper does MORE THAN HALF the effort. [place] lifts or holds trunk or limbs and provides more than half the effort. 4-Wqttfclcw-rmistt does ALL the effort. Patient does none of the effort to complete the activity. Or, the assistance of 2 or more helpers is required for the patient to complete the activity. If activity was not attempted, code reason: 7-Patient Refused. 9-Not Applicable-not attempted and the patient did not perform the activity before the current illness, exacerbation or injury. 10-Not Attempted due to Environmental Limitations-(lack of equipment, weather restraints, etc.). 88-Not Attempted due to Medical Conditions or Safety Concerns. Roll Left to Right (QC): 5 Sit to Lying (QC): 5 Sit to Stand (QC): 4 Chair/Ulk-ph-Levsl Xfer(QC): 3 Car Transfer (QC): 4 Gait Training Does the Patient Walk?: Yes Distance: 102ft, 86ft Walk 10 feet (QC): 3 Walk 50 ft with 2 Turns(QC): 3 Walk 150 ft (QC): 88 Walking 10ft/uneven surface-QC: 88 Gait Persons Needed: 1 Gait Assistive Device: FWW Wheelchair Training Does the Pt Use a Wheelchair?: Yes Wheel 50 ft with 2 turns (QC): 5 Wheel 150 ft (QC): 5 (Pt proopelled self 200 ft, 200f t and 500 ft with set up assist; able to manage brakes. ) Type of Wheelchair: Manual Stair Training Stair Training: Handrails/: 1 handrail #of Steps: 1 1 Step (curb) (QC): 3 4 Steps (QC): 9 12 Steps (QC): 9 Balance Picking up an Object (QC): 88 ADL-Treatment Eating (QC): 6 Oral Hygiene (QC): 6 (completes in w/c with IND) Bathing Location: L Arm, R Arm, L Upper Leg, R Upper Leg, L Lower Leg (including foot), R Lower Leg (including foot), Chest, Abdomen, Buttocks, Perineal Area Shower/Bathe Self (QC): 4 (SBA-CGA intermittently, completes all areas.) Upper Body Dressing (QC): 3 (min A R side.) Lower Body Dressing (QC): 2 (max A: Pt able to thread RLE with assist to support RLE on knee, pt completes LLE and in stance (CGA) pt requires full assist to focus puller hips to maintain balance at gbs.) On/Off Footwear (QC): 3 (mod A RLE) Toileting Hygiene (QC): 1 (TD due to 2 person assist this am.) Toilet Transfer (QC): 3 (min A.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 Defib in place Cardiomyopathy HTN Plan: Monitor dysphagia Cardiology consultation IRF protocol 04/11/20: Monitor BP Appreciate Cardiology 04/12/20: Monitor closely Pain management 04/13/20: Gabapentin Oxycodone 04/14/20: Increase Gabapentin Oxycodone BM regimen to increase today may need supp 04/15/20: BM++ Monitor pain of right side 04/16/20: Increase dose of Neurontin Maintain aggressive rehab 04/17/20: BM regimen to include supp Q48 hrs Monitor pain Monitor BP 04/18/20: Increased Gabpentin some more today BM regimen 04/19/20: Manage incontinence Right arm and right leg pain management 04/20/20: Maintain pain control Incontinence management BM regimen 04/21/20: Suppository [id number] Monitor closely Pain control 04/22/20: Continue BM regimen Monitor right sided pain 04/23/20: BM regimen PT OT Incontinence care 04/24/20: Monitor BP Fall risk BM regimen 04/25/20: No med changes Pain controlled 04/26/2020: Pain management Bowel regimen with suppository every 48 hours Continue intensive therapy 04/27/2020: Aggressive therapy Incontinence care Pain control 04/28/20: Monitor closely Periarea powder Monitor pain Check labs in am 04/29/20: Labs reviewed Monitor pain issues 04/30/20: Continue therapy Needs dispo 05/01/20: DC to NH at DC Monitor closely Pain continues and difficult to ascertain due to expressive aphasia 05/02/20: Pain control Incontinence care Needs NH placement 05/04/20: Monitor BM Needs NH 05/05/20: Incontinence care 05/06/20: Await NHP Labs normal 05/07/20: DC to NH once accepted 05/08/20: Monitor closely 05/09/20: Monitor pain NHP 05/10/20: VCV qamar care requested for DC 05/11/20: Maintain pain control Monitor BP 05/12/20: Improved function slowly 05/13/20: Monitor BP 05/14/20: Await NHP 05/15/20: No concerns 05/16/20: Monitor closely Improved ambulation 05/17/20: Continue aggressive PT/OT/ST 05/18/20: Monitor closely 05/19/20: Pain management (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
[2020-05-19] MEDS: DICLOFENAC 1% GEL 100 GM (VOLTAREN) TUBE TOP SCH ×4 (08:20→21:18)
[2020-05-19 09:55] VITALS: BP 98/58
[2020-05-19] MEDS: ASPIRIN 81 MG CHEW (CHILDREN'S ASA) PO SCH (09:56)
[2020-05-19] MEDS: GABAPENTIN 400 MG (NEURONTIN) CAP PO SCH ×2 (09:56→21:16)
[2020-05-19] MEDS: SPIRONOLACTONE 25 MG (ALDACTONE) TAB PO SCH (09:56)
[2020-05-19] MEDS: APIXABAN 5 MG (ELIQUIS) TABLET PO SCH ×2 (09:56→21:16)
[2020-05-19] MEDS: BISOPROLOL 5 MG TAB (ZEBETA) PO SCH ×2 (09:56→10:03)
[2020-05-19] MEDS: MICONAZOLE 2% POWDER (DESENEX AF) 90 GM TOP SCH ×2 (09:57→21:18)
[2020-05-19] MEDS: SENNA W/DOCUSATE (SENOKOT S) TABLET PO SCH ×2 (10:05→21:15)
[2020-05-19] MEDS: DOCUSATE SODIUM 100 MG (COLACE) CAP PO SCH ×2 (10:05→21:15)
[2020-05-19] MEDS: polyethylene glycoL POWDER 17 GM (MIRALAX) PACK PO SCH ×2 (10:05→21:15)
[2020-05-19] MEDS: ACETAMINOPHEN 325 MG TABLET PO PRN (10:51)
[2020-05-19 17:25] VITALS: BP 110/74
[2020-05-20 06:05] VITALS: BP 114/64
[2020-05-20 06:11] LABS: BASOPHILS % (AUTO) 1 % (0-10); EOSINOPHILS # (AUTO) 0.3 10^3/uL (0.0-0.3); EOSINOPHILS % (AUTO) 4 % (0-10); HEMATOCRIT 44 % (40-54); HEMOGLOBIN 14.5 g/dL (13.3-17.7); LYMPHOCYTES # (AUTO) 2.1 10^3/uL (1.0-4.0); LYMPHOCYTES % (AUTO) 29 % (12-44); MEAN CORPUSCULAR HEMOGLOBIN 29 pg (25-34); MEAN CORPUSCULAR HGB CONC 33 g/dL (32-36); MEAN CORPUSCULAR VOLUME 88 fL (80-99); MEAN PLATELET VOLUME 11.4 fL (9.0-12.2); MONOCYTES # (AUTO) 0.8 10^3/uL (0.0-1.0); MONOCYTES % (AUTO) 12 % (0-12); NEUTROPHILS # (AUTO) 3.8 10^3/uL (1.8-7.8); NEUTROPHILS % (AUTO) 54 % (42-75); PLATELET COUNT 192 10^3/uL (130-400); WHITE BLOOD COUNT 7.1 10^3/uL (4.3-11.0)
--- NOTE | 2020-05-20 06:21 | PM&R Progress Note ---
Subjective HPI/CC On Admission Date Seen by Provider: May 20, 2020 Time Seen by Provider: 09:00 Subjective/Events-last exam 05/20/20: Pt very angry today Behavioral health consult Very difficult because placement is an issue 05/19/20: Pain management today Right sided pain BM++ 05/18/20: No new issues 05/17/20: Making major progress as we wait on NH No pain reported 05/16/20: Making true progress with walking with walker hemitype No pain 05/15/20: No issues Awaiting placement 05/14/20: Pt is talking better Saw pt in the gym Lungs remain clear No new issues Awaiting placement Improved speech 05/13/20: Awaiting placement Labs ok 05/12/20: Awaiting placement 05/11/20: Monitor pain 05/10/20: NH did not accept patient after all 05/09/20: Awaiting NHP maybe tomorrow : No significant change Working pretty well with therapy Expressive aphasia makes it difficult to communicate 05/07/20: Suppository given due to no BM for four days Urinating in the urinal now Butt-paste maintained for skin protection 05/06/20: Pt doing pretty well Awaiting alf placement Labs remain stable Overall doing well 05/05/20: No changes Right sided pain still present Awaiting placement in NH 05/04/20: No major issues BM yesterday no supp used 05/02/20: No major changes More alert today In chair today No BM for several days and refuses suppository 05/01/20: No major changes Refuses suppository Pain on the right side continues Incontinent Sister did family training and felt like he will need to go to a nursing facility [facility] was sent a referral 04/30/20: No major changes Laxatives were refused and he is having a BM every other day without the suppository Denies any significant new issues 04/29/20: Patient reports no major issues No pain reported Pain meds are helpful 04/28/20: Periarea red so will start antifungal powder No pain reported otherwise Incontinence will require 24/7 nursing care along with severe deficit 04/27/2020: Incontinence of both bowel and bladder are limitations Denies any significant new issues Pain is pretty well controlled on the right side for flaccidity muscle spasms 04/26/2020: Patient denies any pain Incontinence requires nursing care 14/12 Pain is pretty well controlled Expressive aphasia makes it difficult to communicate 04/25/20: No major issues Pain controlled Participation with PT 04/24/20: Pt doing pretty well Bowels move after suppository every 48 hrs Decreasing pain medication Decreasing Cozaar due to hypotension per cardiology 04/23/20: BM after suppository every 48hrs Gabapentin BID seems to be working pretty well Using Oxycodone when Gabapentin is not enough No falls 04/22/20: No major issues Expressive aphasia continues Bowels moved yesterday after suppository given every 48 hours 04/21/20: Suppository today and BM Incontinent of B/B Pain improved Does not need to increase Gabapentin 04/20/20: BM yesterday Pain improved Sleepy today Doing better Incontinence : Improve right sided nerve pain Xanax and pain pill helps him BM after suppository Q 48 hours Incontinent of B/B 04/18/20: BM 04/17/20 Eliquis causes blurry vision per sister so will inquire with Dr Gibson regarding Xarelto Incontinent 04/17/20: Bowels not moving so will initiate Dulcolax suppository every 48hrs after laxatives given and he is agreeable for that plan Denies any significant new issues Pain is getting much better with the Gabapentin twice daily and Oxycodone 04/16/20: Right-sided pain still so increased Gabapentin to 300 Mg BID Xanax will help too Oxycodone also helps 04/15/20: Gabapentin maintained Oxycodone maintained Confusion noted? 04/14/20: Monitoring BP Pain right side still present and will increase Gabapentin 04/13/20: Right arm and right leg pain and issue Oxycodone not really helping Nerve pain so will give Gabapentin 04/12/20: Severe pain on right side Oxycodone ordered Participating in therapies well No other pain Pt doing pretty well Expressive aphasia is an issue WBC is 12.4 CMP normal Consulting cardiology Overall doing very well Conferred with RN Checked meds and labs Reviewed therapy notes Review of Systems Neurological: Weakness, Incoordination Objective Exam Vital Signs Vital Signs Date Time Temp Pulse Resp B/P (MAP) Pulse Ox O2 Delivery O2 Flow Rate FiO2 05/20/20 20:00 99 Room Air 05/20/20 17:54 36.2 81 18 114/71 (85) Capillary Refill : Less Than 3 Seconds General Appearance: No Apparent Distress, WD/WN, Chronically ill HEENT: PERRL/EOMI, Normal ENT Inspection, Pharynx Normal Neck: Full Range of Motion, Normal Inspection, Non Tender, Supple, Carotid Bruit Respiratory: Chest Non Tender, Lungs Clear, Normal Breath Sounds, No Accessory Muscle Use, No Respiratory Distress Cardiovascular: Regular Rate, Rhythm, No Edema, No Gallop, No JVD, No Murmur, Normal Peripheral Pulses Gastrointestinal: Normal Bowel Sounds, No Organomegaly, No Pulsatile Mass, Non Tender, Soft Back: Normal Inspection, No CVA Tenderness, No Vertebral Tenderness Extremity: Normal Capillary Refill, Normal Inspection, Normal Range of Motion, Non Tender, No Calf Tenderness, No Pedal Edema Neurologic/Psychiatric: Alert, Normal Mood/Affect, Abnormal Gait, Aphasia, Depressed Affect, Disoriented, Motor Weakness (right sided flaccidity) Skin: Normal Color, Warm/Dry Lymphatic: No Adenopathy Results/Procedures Lab Laboratory Tests 05/20/20 06:00 Patient resulted labs reviewed. FIM Transfers Therapy Code Descriptions/Definitions Functional [place] Measure: 0=Not Assessed/NA 4=Minimal Assistance 1=Total Assistance 5=Supervision or Setup 2=Maximal Assistance 6=Modified [place] 3=Moderate Assistance 7=Complete IndependenceSCALE: Activities may be completed with or without assistive devices. 3-Duvamcsgbw-kjwyeoc completes the activity by him/herself with no assistance from a helper. 5-Set-up or Clean-up Assistance-helper sets up or cleans up; patient completes activity. [place] assists only prior to or following the activity. 4-Supervision or Touching Assistance-helper provides verbal cues and/or touching/steadying and/or contact guard assistance as patient completes activity. Assistance may be provided throughout the activity or intermittently. 3-Partial/Moderate Assistance-helper does LESS THAN HALF the effort. [place] lifts, holds or supports trunk or limbs, but provides less than half the effort. 2-Substantial/Maximal Assistance-helper does MORE THAN HALF the effort. [place] lifts or holds trunk or limbs and provides more than half the effort. 4-Ooddgbrho-xemxct does ALL the effort. Patient does none of the effort to complete the activity. Or, the assistance of 2 or more helpers is required for the patient to complete the activity. If activity was not attempted, code reason: 7-Patient Refused. 9-Not Applicable-not attempted and the patient did not perform the activity before the current illness, exacerbation or injury. 10-Not Attempted due to Environmental Limitations-(lack of equipment, weather restraints, etc.). 88-Not Attempted due to Medical Conditions or Safety Concerns. Roll Left to Right (QC): 5 Sit to Lying (QC): 5 Sit to Stand (QC): 4 Chair/Lmo-pe-Woajv Xfer(QC): 3 Car Transfer (QC): 4 Gait Training Does the Patient Walk?: Yes Distance: 102ft, 86ft Walk 10 feet (QC): 3 Walk 50 ft with 2 Turns(QC): 3 Walk 150 ft (QC): 88 Walking 10ft/uneven surface-QC: 88 Gait Persons Needed: 1 Gait Assistive Device: FWW Wheelchair Training Does the Pt Use a Wheelchair?: Yes Wheel 50 ft with 2 turns (QC): 5 Wheel 150 ft (QC): 5 (Pt proopelled self 200 ft, 200f t and 500 ft with set up assist; able to manage brakes. ) Type of Wheelchair: Manual Stair Training Stair Training: Handrails/: 1 handrail #of Steps: 1 1 Step (curb) (QC): 3 4 Steps (QC): 9 12 Steps (QC): 9 Balance Picking up an Object (QC): 88 ADL-Treatment Eating (QC): 6 Oral Hygiene (QC): 6 (completes in w/c with IND) Bathing Location: L Arm, R Arm, L Upper Leg, R Upper Leg, L Lower Leg (including foot), R Lower Leg (including foot), Chest, Abdomen, Buttocks, Perineal Area Shower/Bathe Self (QC): 4 (SBA-CGA intermittently, completes all areas.) Upper Body Dressing (QC): 3 (min A R side.) Lower Body Dressing (QC): 2 (max A: Pt able to thread RLE with assist to support RLE on knee, pt completes LLE and in stance (CGA) pt requires full assist to hook puller hips to maintain balance at gbs.) On/Off Footwear (QC): 3 (mod A RLE) Toileting Hygiene (QC): 1 (TD due to 2 person assist this am.) Toilet Transfer (QC): 3 (min A.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 Defib in place Cardiomyopathy HTN Plan: Monitor dysphagia Cardiology consultation IRF protocol 04/11/20: Monitor BP Appreciate Cardiology 04/12/20: Monitor closely Pain management 04/13/20: Gabapentin Oxycodone 04/14/20: Increase Gabapentin Oxycodone BM regimen to increase today may need supp 04/15/20: BM++ Monitor pain of right side 04/16/20: Increase dose of Neurontin Maintain aggressive rehab 04/17/20: BM regimen to include supp Q48 hrs Monitor pain Monitor BP 04/18/20: Increased Gabpentin some more today BM regimen 04/19/20: Manage incontinence Right arm and right leg pain management 04/20/20: Maintain pain control Incontinence management BM regimen 04/21/20: Suppository [id number] Monitor closely Pain control 04/22/20: Continue BM regimen Monitor right sided pain 04/23/20: BM regimen PT OT Incontinence care 04/24/20: Monitor BP Fall risk BM regimen 04/25/20: No med changes Pain controlled 04/26/2020: Pain management Bowel regimen with suppository every 48 hours Continue intensive therapy 04/27/2020: Aggressive therapy Incontinence care Pain control 04/28/20: Monitor closely Periarea powder Monitor pain Check labs in am 04/29/20: Labs reviewed Monitor pain issues 04/30/20: Continue therapy Needs dispo 05/01/20: DC to NH at DC Monitor closely Pain continues and difficult to ascertain due to expressive aphasia 05/02/20: Pain control Incontinence care Needs NH placement 05/04/20: Monitor BM Needs NH 05/05/20: Incontinence care 05/06/20: Await NHP Labs normal 05/07/20: DC to NH once accepted 05/08/20: Monitor closely 05/09/20: Monitor pain NHP 05/10/20: VCV qamar care requested for DC 05/11/20: Maintain pain control Monitor BP 05/12/20: Improved function slowly 05/13/20: Monitor BP 05/14/20: Await NHP 05/15/20: No concerns 05/16/20: Monitor closely Improved ambulation 05/17/20: Continue aggressive PT/OT/ST 05/18/20: Monitor closely 05/19/20: Pain management 05/20/20: Monitor anger (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
[2020-05-20 06:36] LABS: ALANINE AMINOTRANSFERASE 65 U/L (0-55); ALBUMIN 3.3 GM/DL (3.2-4.5); ALKALINE PHOSPHATASE 143 U/L (40-136); BILIRUBIN,TOTAL 0.4 MG/DL (0.1-1.0); BUN/CREATININE RATIO 16; CARBON DIOXIDE 27 MMOL/L (21-32); CHLORIDE 106 MMOL/L (98-107); CREATININE SERUM 0.87 MG/DL (0.60-1.30); GFR ESTIMATED > 60; GLUCOSE 83 MG/DL (70-105); POTASSIUM 4.2 MMOL/L (3.6-5.0); SODIUM 140 MMOL/L (135-145); TOTAL PROTEIN 6.3 GM/DL (6.4-8.2)
[2020-05-20] MEDS: ASPIRIN 81 MG CHEW (CHILDREN'S ASA) PO SCH (08:43)
[2020-05-20] MEDS: SPIRONOLACTONE 25 MG (ALDACTONE) TAB PO SCH (08:43)
[2020-05-20] MEDS: APIXABAN 5 MG (ELIQUIS) TABLET PO SCH ×2 (08:43→19:28)
[2020-05-20] MEDS: GABAPENTIN 400 MG (NEURONTIN) CAP PO SCH ×2 (08:43→19:29)
[2020-05-20] MEDS: DICLOFENAC 1% GEL 100 GM (VOLTAREN) TUBE TOP SCH ×4 (08:45→19:30)
[2020-05-20] MEDS: BISOPROLOL 5 MG TAB (ZEBETA) PO SCH (09:32)
[2020-05-20] MEDS: DOCUSATE SODIUM 100 MG (COLACE) CAP PO SCH ×2 (09:49→19:29)
[2020-05-20] MEDS: polyethylene glycoL POWDER 17 GM (MIRALAX) PACK PO SCH ×2 (09:50→19:30)
[2020-05-20] MEDS: SENNA W/DOCUSATE (SENOKOT S) TABLET PO SCH ×2 (09:50→19:29)
[2020-05-20] MEDS: MICONAZOLE 2% POWDER (DESENEX AF) 90 GM TOP SCH ×2 (09:50→19:30)
--- NOTE | 2020-05-20 10:42 | NUR ---
Patient having difficulty today expressing self and is very frustrated. Patient agrees to talk to someone from Behavioral Health if available. Patient's frustration recognized and staff gave patient encouragement regarding progress.
--- NOTE | 2020-05-20 11:08 | Physical Therapy Daily Note ---
PT Daily Note-Current Subjective Pt. very angry when this NEGATIVE CHECKER arrived, expressed himself by shaking left fist in the air looking upward and stating, " F$%^ you, F&^% YOU" and in tears, with very angered look on face and in eyes. Pt. seemed to calm down when this NEGATIVE CHECKER attempted to soothe him stating his frustration was normal and that we could set up a video conference with to help him manage his anger. Pt. seemed much better by end of Rx as this NEGATIVE CHECKER who had not seen him for 4 days noted all the improvements he has made. No c/o pain except right shoulder briefly during TRF as it got caught in int rotation . Pain Location: No Pain Reported Mental Status Patient Orientation: Non-Verbal/Aphasic Attachments: Other-See Comments (R arm sling, mask while out of room) Transfers SCALE: Activities may be completed with or without assistive devices. 1-Gomcyvdzxf-ycstrrp completes the activity by him/herself with no assistance from a helper. 5-Set-up or Clean-up Assistance-helper sets up or cleans up; patient completes activity. [place] assists only prior to or following the activity. 4-Supervision or Touching Assistance-helper provides verbal cues and/or touching/steadying and/or contact guard assistance as patient completes activity. Assistance may be provided throughout the activity or intermittently. 3-Partial/Moderate Assistance-helper does LESS THAN HALF the effort. [place] lifts, holds or supports trunk or limbs, but provides less than half the effort. 2-Substantial/Maximal Assistance-helper does MORE THAN HALF the effort. [place] lifts or holds trunk or limbs and provides more than half the effort. 5-Wmjzqgmhw-ffnqcn does ALL the effort. Patient does none of the effort to complete the activity. Or, the assistance of 2 or more helpers is required for the patient to complete the activity. If activity was not attempted, code reason: 7-Patient Refused. 9-Not Applicable-not attempted and the patient did not perform the activity before the current illness, exacerbation or injury. 10-Not Attempted due to Environmental Limitations-(lack of equipment, weather restraints, etc.). 88-Not Attempted due to Medical Conditions or Safety Concerns. Roll Left & Right (QC): 5 Sit to Lying (QC): 6 Lying to Sitting/Side of Bed(Q: 6 Sit to Stand (QC): 4 Chair/Rwq-do-Dnfyb Xfer(QC): 4 (toward left) Weight Bearing Full Weight Bearing Full Weight Bearing Gait Training Does the Patient Walk?: Yes Walk 10 feet (QC): 4 Gait Persons Needed: 1 Gait Assistive Device: Handheld Assist (HH on right, akers rail at left.) pt. has improved as advances RLE indep and stabilizes it as well for step through 12 ft x 3 Wheelchair Training Does the Pt Use a Wheelchair?: Yes Wheel 50 ft with 2 turns (QC): 6 Wheel 150 ft (QC): 6 Type of Wheelchair: Manual pt. now consistently manages brakes, swinging leg rest and aligning the w/c indep with little to no cuing. Exercises Supine Ex: Bridging, Ankle pumps, Quad Set, Rolling, Glut sets, Heel Slides, Short Arc Quads, Scooting, Straight leg raise, Hip abd/add Supine Reps: 20 Treatments pt. needs encouraged that progress is happening and that a good DC plan will happen. Pt. seemed calmer after this NEGATIVE CHECKER and his nurse shared that his frustration and anger are normal but letting them block his efforts and concentration on his progress will not be helpful, pt. was then calm and and agreed Assessment Current Status: Good Progress will pursue behavioral health zoom meeting PT Short Term Goals Short Term Goals Time Frame: Apr 18, 2020 Roll Left & Right: 3 Sit to lyin Lying to sitting on side of be: 3 Sit to stand: 3 Chair/uvc-vk-llhvm transfer: 3 PT Assisted Goals Assisted Goals PT Assisted Goals Time Frame: May 02, 2020 Roll Left & Right (QC): 4 Sit to Lying (QC): 4 Lying-Sitting on Side/Bed(QC): 4 Sit to Stand (QC): 3 (Zoya) Chair/Hrs-ud-Ghzzb Xfer(QC): 3 (Zoya) Toilet Transfer (QC): 3 (Zoya) Car Transfer (QC): 3 (Zoya) Does the Patient Walk: No and Walking Goal NOT indicated Walk 10 feet (QC): 88 Walk 50ft with 2 Turns (QC): 88 Walk 150 ft (QC): 88 Walking 10ft on Uneven Surface: 88 1 Step (curb) (QC): 88 4 Steps (QC): 88 12 Steps (QC): 88 Picking up an Object (QC): 88 Wheel 50 feet with 2 turns (QC: 4 Wheel 150 feet: 4 PT Plan Treatment/Plan Treatment Plan: Continue Plan of Care Treatment Plan: Bed Mobility, Education, Functional Activity [place], Functional Strength, Group Therapy, Gait, Safety, Therapeutic Exercise, Transfers Treatment Duration: May 01, 2020 Frequency: At least 5 of 7 days/Wk (IRF) Estimated Hrs Per Day: 1.5 hours per day Patient and/or Family Agrees t: Yes Safety Risks/Education Patient Education: Gait Training, Transfer Techniques, Correct Positioning, W/C Management, Disease Process, Safety Issues Teaching Recipient: Patient Teaching Methods: Demonstration, Discussion Response to Teaching: Verbalize Understanding, Return Demonstration, Reinforcement Needed Time/GCodes Time In: 1000 Time Out: 1100 Total Billed Treatment Time: 60 Total Billed Treatment 1,GT15m,WC15m,EX15m,FA15m ZAIRA GALEANA NEGATIVE CHECKER May 20, 2020 11:08
--- NOTE | 2020-05-20 12:56 | Speech Therapy Daily Note ---
Speech Daily Progress Note Subjective Date Seen by Provider: May 20, 2020 Time Seen by Provider: 00:30 Patient was resting in his recliner following his PT session. Objective Patient completed a series of general information questions with 60% given mod to max verbal cues. Assessment Assessment Current Status: Fair Progress Treatment Plan Continue Plan of Care Speech Short Term Goals Short Term Goals Short Term Goals 1) The patient will complete OME for improved speech production at each session with 80% or greater accuracy. 2) The patient will complete word finding tasks with 80% or greater accuracy. 3) The patient will complete expressive language tasks 80% or greater accuracy. 4) The patient will tolerate least restrictive diet level without s/s of aspiration at 80% or greater accuracy. 5) The patient will utilize compensatory strategies as trained 80% or greater accuracy. Speech Residential Goals Sales And Marketing Assistant Goals Patient will improve cognitive-communication abilities for completion of daily needs with minimal assist. Patient will maintain adequate nutrition/hydration via safe effective swallow function. Speech-Plan Patient/Family Goals Patient/Family Goals: Patient continues to wait on placement in a SNF. 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 Time Speech Therapy Time In: 11:00 Speech Therapy Time Out: 11:30 Total Billed Time: 30 Billed Treatment Time SHAYAN Lucas SLTS No [place], [address] May 20, 2020 12:56
--- NOTE | 2020-05-20 14:43 | Occupational Ther Daily Note ---
OT Current Status-Daily Note Subjective Pt. verbalizes pain in right UE, but does not state pain level. Nursing notified and gives pt. medication. Mental Status/Objective Patient Orientation: Person ADL-Treatment Therapy Code Descriptions/Definitions Functional [place] Measure: 0=Not Assessed/NA 4=Minimal Assistance 1=Total Assistance 5=Supervision or Setup 2=Maximal Assistance 6=Modified [place] 3=Moderate Assistance 7=Complete IndependenceSCALE: Activities may be completed with or without assistive devices. 4-Fqwrbybobx-wpnmvdj completes the activity by him/herself with no assistance from a helper. 5-Set-up or Clean-up Assistance-helper sets up or cleans up; patient completes activity. [place] assists only prior to or following the activity. 4-Supervision or Touching Assistance-helper provides verbal cues and/or estephanie nanci/steadying and/or contact guard assistance as patient completes activity. Assistance may be provided throughout the activity or intermittently. 3-Partial/Moderate Assistance-helper does LESS THAN HALF the effort. [place] lifts, holds or supports trunk or limbs, but provides less than half the effort. 2-Substantial/Maximal Assistance-helper does MORE THAN HALF the effort. [place] lifts or holds trunk or limbs and provides more than half the effort. 6-Dqpydvdxq-fyswzr does ALL the effort. Patient does none of the effort to complete the activity. Or, the assistance of 2 or more helpers is required for the patient to complete the activity. If activity was not attempted, code reason: 7-Patient Refused. 9-Not Applicable-not attempted and the patient did not perform the activity before the current illness, exacerbation or injury. 10-Not Attempted due to Environmental Limitations-(lack of equipment, weather restraints, etc.). 88-Not Attempted due to Medical Conditions or Safety Concerns. Shower/Bathe Self (QC): 3 (Min assist and constant cues in shower for sequencing each step.) Upper Body Dressing (QC): 2 (Pt. had button up shirt to don, that was more difficult for him.) Lower Body Dressing (QC): 2 (Pt. required max assist this date for LE dressing due to slight agitation after shower, and time constraints. However, given increased time, pt. possibly could don clothing himself.) On/Off Footwear: 3 (Pt. able to doff slipper socks, but due to time constraints, required assistance to don socks and shoes.) Other Treatment Pt. in bed when OT entered room. Pt. demonstrates more of a flat affect this date, and requires increased cues for participation and mood. Pt. agrees to shower. Becomes frustrated in shower and so OT does more for him than he normally needs. Noted pt. requires increased time, as he will spray the same area and not move on to the next step of the shower. After showering, pt. is assisted with donning clothes and clothing management. Transfers to wheelchair with min assist. Pt. able to self propel to recliner and transfers to strong side with min assist. All needs met. Education OT Patient Education: Correct positioning, Modified ADL techniques, Progress toward Goal/Update tx plan, Purpose of tx/functional activities, Reviewed precautions, Rehab process, Transfer techniques Teaching Recipient: Patient Teaching Methods: Demonstration, Discussion Response to Teaching: Verbalize Understanding, Return Demonstration, Reinforcement Needed OT Short Term Goals Short Term Goals Eatin Oral hygiene: 5 Toileting hygiene: 2 Shower/bathe self: 2 Upper body dressin Lower body dressin Putting on/taking off footwear: 2 OT Card Runner Goals Longterm Goals Time Frame: May 29, 2020 Eating (QC): 6 Oral Hygiene (QC): 6 Toileting Hygiene (QC): 3 Shower/Bathe Self (QC): 5 Upper Body Dressing (QC): 6 Lower Body Dressing (QC): 3 On/Off Footwear (QC): 6 Additional Goals: 1-Demonstrate ADL Tasks, 2-Verbalize Understanding, 3- ImproveStrength/[place] 1=Demonstrate adherence to instructed precautions during ADL tasks. 2=Patient will verbalize/demonstrate understanding of assistive devices/modifications for ADL. 3=Patient will improve strength/tolerance for activity to enable patient to perform ADL's. OT Education/Plan Problem List/Assessment Assessment: Decreased Activ Tolerance, Decreased UE Strength, Dependent Transfers, Impaired Cognition, Impaired Coordination, Impaired Funct Balance, Impaired I ADL's, Impaired Self-Care Skills, Restricted Funct UE ROM, Visual- Perceptual Deficit Discharge Recommendations Plan/Recommendations: Continue POC Therapy Discharge Recommendati: Post Acute OT Treatment Plan/Plan of Care Treatment,Training & Education: Yes Patient would benefit from OT for education, treatment and training to promote independence in ADL's, mobility, safety and/or upper extremity function for ADL's. Plan of Care: ADL Retraining, Caregiver Training, Concurrent Therapy, Functional Mobility, Group Exercise/Act as Ind, Orthotic Fitting/Training, UE Funct Exercise/Act, UE Neuromus Re-Ed/Coord, Visual/Perceptual Retrain, W/C Management Training Treatment Duration: Apr 24, 2020 Frequency: At least 5 of 7 days/Wk (IRF) Estimated Hrs Per Day: 1.5 hours per day Agreement: Yes Rehab Potential: Fair Time/GCodes Start Time: 08:15 Stop Time: 09:00 Total Time Billed (hr/min): 45 Billed Treatment Time 1, ADL x 3 SEDA MEDEL OT May 20, 2020 14:43
--- NOTE | 2020-05-20 14:55 | Occupational Ther Daily Note ---
OT Current Status-Daily Note Subjective Pt. verbalizes pain in right UE. Does not state number. Nursing notified. Mental Status/Objective Patient Orientation: Person, Place ADL-Treatment Therapy Code Descriptions/Definitions Functional [place] Measure: 0=Not Assessed/NA 4=Minimal Assistance 1=Total Assistance 5=Supervision or Setup 2=Maximal Assistance 6=Modified [place] 3=Moderate Assistance 7=Complete IndependenceSCALE: Activities may be completed with or without assistive devices. 3-Adszzvjhgj-ygsplha completes the activity by him/herself with no assistance from a helper. 5-Set-up or Clean-up Assistance-helper sets up or cleans up; patient completes activity. [place] assists only prior to or following the activity. 4-Supervision or Touching Assistance-helper provides verbal cues and/or touching/steadying and/or contact guard assistance as patient completes activity. Assistance may be provided throughout the activity or intermittently. 3-Partial/Moderate Assistance-helper does LESS THAN HALF the effort. [place] lifts, holds or supports trunk or limbs, but provides less than half the effort. 2-Substantial/Maximal Assistance-helper does MORE THAN HALF the effort. [place] lifts or holds trunk or limbs and provides more than half the effort. 7-Edytpwdqn-dlxhvb does ALL the effort. Patient does none of the effort to complete the activity. Or, the assistance of 2 or more helpers is required for the patient to complete the activity. If activity was not attempted, code reason: 7-Patient Refused. 9-Not Applicable-not attempted and the patient did not perform the activity before the current illness, exacerbation or injury. 10-Not Attempted due to Environmental Limitations-(lack of equipment, weather restraints, etc.). 88-Not Attempted due to Medical Conditions or Safety Concerns. Other Treatment Pt. transferred to wheelchair from reclining chair with min assist. Pt. able to self propel to therapy gym with SBA. Pt. able to thread bilateral UE and participate in bilateral coordination task with hitting at balloon. Pt. indicates after several minutes that his right shoulder is sore. OT assesses right UE. Note continued subluxation with approximately 1" joint space. Prov ided joint compressions, scapular glides, and gentle PROM to all areas. Pt. indicates that this feels good, but makes it sore. Notified nursing for pain pill. Pt. self propels back to room and transfers to reclining chair with min assist. Right UE positioned to comfort level, and pt. is educated about positioning himself. All needs met. Education OT Patient Education: Correct positioning, Exercise program, Modified ADL techniques, Progress toward Goal/Update tx plan, Purpose of tx/functional activities, Reviewed precautions, Rehab process, Transfer techniques Teaching Recipient: Patient Teaching Methods: Demonstration, Discussion Response to Teaching: Verbalize Understanding, Return Demonstration OT Short Term Goals Short Term Goals Eatin Oral hygiene: 5 Toileting hygiene: 2 Shower/bathe self: 2 Upper body dressin Lower body dressin Putting on/taking off footwear: 2 OT Mortgage Operations Manager Goals Alf Goals Time Frame: May 29, 2020 Eating (QC): 6 Oral Hygiene (QC): 6 Toileting Hygiene (QC): 3 Shower/Bathe Self (QC): 5 Upper Body Dressing (QC): 6 Lower Body Dressing (QC): 3 On/Off Footwear (QC): 6 Additional Goals: 1-Demonstrate ADL Tasks, 2-Verbalize Understanding, 3- ImproveStrength/[place] 1=Demonstrate adherence to instructed precautions during ADL tasks. 2=Patient will verbalize/demonstrate understanding of assistive devices/modifications for ADL. 3=Patient will improve strength/tolerance for activity to enable patient to perform ADL's. OT Education/Plan Problem List/Assessment Assessment: Decreased Activ Tolerance, Decreased UE Strength, Dependent Transfers, Impaired Cognition, Impaired Coordination, Impaired Funct Balance, Impaired I ADL's, Impaired Self-Care Skills, Restricted Funct UE ROM, Visual- Perceptual Deficit Discharge Recommendations Plan/Recommendations: Continue POC Therapy Discharge Recommendati: Post Acute OT Treatment Plan/Plan of Care Treatment,Training & Education: Yes Patient would benefit from OT for education, treatment and training to promote independence in ADL's, mobility, safety and/or upper extremity function for ADL's. Plan of Care: ADL Retraining, Caregiver Training, Concurrent Therapy, Functional Mobility, Group Exercise/Act as Ind, Orthotic Fitting/Training, UE Funct Exercise/Act, UE Neuromus Re-Ed/Coord, Visual/Perceptual Retrain, W/C Management Training Treatment Duration: Apr 24, 2020 Frequency: At least 5 of 7 days/Wk (IRF) Estimated Hrs Per Day: 1.5 hours per day Agreement: Yes Rehab Potential: Fair Time/GCodes Start Time: 13:00 Stop Time: 13:30 Total Time Billed (hr/min): 30 Billed Treatment Time 1, FA x 15minutes, Ex x 15minutes SEDA MEDEL OT May 20, 2020 14:54
--- NOTE | 2020-05-20 14:55 | Physical Therapy Daily Note ---
PT Daily Note-Current Subjective Pt. agrees to Rx. Wants to get on Nustep and use LEs only to strengthen RLE. Pt. also requests increased resistance to 7. Pain Location: No Pain Reported Mental Status Patient Orientation: Non-Verbal/Aphasic Attachments: Other-See Comments (mask) Transfers SCALE: Activities may be completed with or without assistive devices. 8-Roojoypnke-mrvlsms completes the activity by him/herself with no assistance from a helper. 5-Set-up or Clean-up Assistance-helper sets up or cleans up; patient completes activity. [place] assists only prior to or following the activity. 4-Supervision or Touching Assistance-helper provides verbal cues and/or touching/steadying and/or contact guard assistance as patient completes activity. Assistance may be provided throughout the activity or intermittently. 3-Partial/Moderate Assistance-helper does LESS THAN HALF the effort. [place] lifts, holds or supports trunk or limbs, but provides less than half the effort. 2-Substantial/Maximal Assistance-helper does MORE THAN HALF the effort. [place] lifts or holds trunk or limbs and provides more than half the effort. 8-Kgfmdmpwc-wdqwnl does ALL the effort. Patient does none of the effort to complete the activity. Or, the assistance of 2 or more helpers is required for the patient to complete the activity. If activity was not attempted, code reason: 7-Patient Refused. 9-Not Applicable-not attempted and the patient did not perform the activity before the current illness, exacerbation or injury. 10-Not Attempted due to Environmental Limitations-(lack of equipment, weather restraints, etc.). 88-Not Attempted due to Medical Conditions or Safety Concerns. TRFs SPT toward left min to mod . TRFs to right Mod assist. sit to sup SBA Weight Bearing Full Weight Bearing Full Weight Bearing Wheelchair Training Does the Pt Use a Wheelchair?: Yes Type of Wheelchair: Manual 160 ft x 2 Mod I to from gym and managing all aspects of brakes ad leg rest Exercises NuStep Minutes: 9 NuStep Workload: 7 Treatments pt. required assist to int rot RLE on Nustep 50% of time Assessment Current Status: Good Progress gives full effort PT Short Term Goals Short Term Goals Time Frame: Apr 18, 2020 Roll Left & Right: 3 Sit to lyin Lying to sitting on side of be: 3 Sit to stand: 3 Chair/mxd-tg-kxune transfer: 3 PT Assisted Goals Assisted Goals PT Assisted Goals Time Frame: May 02, 2020 Roll Left & Right (QC): 4 Sit to Lying (QC): 4 Lying-Sitting on Side/Bed(QC): 4 Sit to Stand (QC): 3 (Zoya) Chair/Xfy-rz-Vnyyv Xfer(QC): 3 (Zoya) Toilet Transfer (QC): 3 (Zoya) Car Transfer (QC): 3 (Zoya) Does the Patient Walk: No and Walking Goal NOT indicated Walk 10 feet (QC): 88 Walk 50ft with 2 Turns (QC): 88 Walk 150 ft (QC): 88 Walking 10ft on Uneven Surface: 88 1 Step (curb) (QC): 88 4 Steps (QC): 88 12 Steps (QC): 88 Picking up an Object (QC): 88 Wheel 50 feet with 2 turns (QC: 4 Wheel 150 feet: 4 PT Plan Treatment/Plan Treatment Plan: Continue Plan of Care Treatment Plan: Bed Mobility, Education, Functional Activity [place], Functional Strength, Group Therapy, Gait, Safety, Therapeutic Exercise, Transfers Treatment Duration: May 01, 2020 Frequency: At least 5 of 7 days/Wk (IRF) Estimated Hrs Per Day: 1.5 hours per day Patient and/or Family Agrees t: Yes Safety Risks/Education Patient Education: Transfer Techniques, Correct Positioning, W/C Management, Safety Issues Time/GCodes Time In: 1405 Time Out: 1430 Total Billed Treatment Time: 25 Total Billed Treatment 1,EX10m,FA15m ZAIRA GALEANA GLOBAL CLIMATE CHANGE RESEARCHER May 20, 2020 14:54
--- NOTE | 2020-05-20 15:11 | NUR ---
CM/SS CONCURRENT radio television announcer spoke with [facility]/Exec /Mary as a followup to our discussion about potential to accept patient into fdc care placement. As extensively noted, patient has Medicaid only which pays their allowable room rate only with no reimbursement for any ancillaries, like therapy. Mary and [facility]/Margie both indicate they have reached out to Medicaid, unsuccessfully. Holiday scheduling may have played a role in Medicaid absence. Because we have been pursuing [facility] as a possibility since approx 05/03, mortgage loan underwriter opened communication with [facility] AVIATION MANAGER/Nursing/Vale asking for negotiation with [facility]Reyna Dexter in [place]. The proposal is that with both facilities being a part of the [facility] system, the patient could be accepted to [facility] and therapy provided under [facility]. All SNF options have been explored and pursued regionally. Patient has [place] Medicaid prohibitive to pursuing [place] facilities. Additionally, patient/DPOA request staying in [place] if possible. Await response.
[2020-05-20 17:54] VITALS: BP 114/71
--- NOTE | 2020-05-20 17:55 | NUR ---
"RD ASSESSMENT PMHx: afib; HTN; stroke; PT INTERACTION: Pt was awake and pleasant during nutrition follow-up. Pt states he has been eating well since last assessment. Note avg PO intake 100% x4d, per chart review. Pt states no issues with nausea, vomiting, constipation, or diarrhea since last assessment. Note last BM was 05/20, and pt currently on bowel regimen of colace BID, senna BID, and miralax BID, per chart review. ABNORMAL NUTRITION-RELATED LAB VALUES LOW: Pro 6.3; HIGH: AST 37; ALT 65; alkphos 143; Est. kcal needs: 2901-0845 kcal | 20-25 kcal/kg Est. Pro needs: 62-78 g Pro | 0.8-1.0 g Pro/kg PES STATEMENT: Given current appetite and PO intake, no nutrition diagnosis at this time (NO-1.1). INTERVENTION: Continue with current diet order of DYS2 Mechanically Altered diet, with modifier of [place] Thick Liquids. Will continue to follow and reassess as pt needs, intake, and status change. Shivani HUI, MS RD LD [phone] cell"
[2020-05-21 05:38] VITALS: BP 113/71
--- NOTE | 2020-05-21 05:58 | PM&R Progress Note ---
Subjective HPI/CC On Admission Date Seen by Provider: May 21, 2020 Time Seen by Provider: 08:30 Subjective/Events-last exam 05/21/20: DC tomorrow to [place] 05/20/20: Pt very angry today Behavioral health consult Very difficult because placement is an issue 05/19/20: Pain management today Right sided pain BM++ 05/18/20: No new issues 05/17/20: Making major progress as we wait on NH No pain reported 05/16/20: Making true progress with walking with walker hemitype No pain 05/15/20: No issues Awaiting placement 05/14/20: Pt is talking better Saw pt in the gym Lungs remain clear No new issues Awaiting placement Improved speech 05/13/20: Awaiting placement Labs ok 05/12/20: Awaiting placement 05/11/20: Monitor pain 05/10/20: [facility] did not accept patient after all 05/09/20: Awaiting NHP maybe tomorrow : No significant change Working pretty well with therapy Expressive aphasia makes it difficult to communicate 05/07/20: Suppository given due to no BM for four days Urinating in the urinal now Butt-paste maintained for skin protection 05/06/20: Pt doing pretty well Awaiting shelter placement Labs remain stable Overall doing well 05/05/20: No changes Right sided pain still present Awaiting placement in [place] 05/04/20: No major issues BM yesterday no supp used 05/02/20: No major changes More alert today In chair today No BM for several days and refuses suppository 05/01/20: No major changes Refuses suppository Pain on the right side continues Incontinent Sister did family training and felt like he will need to go to a nursing facility [facility] was sent a referral 04/30/20: No major changes Laxatives were refused and he is having a BM every other day without the suppository Denies any significant new issues 04/29/20: Patient reports no major issues No pain reported Pain meds are helpful 04/28/20: Periarea red so will start antifungal powder No pain reported otherwise Incontinence will require 24/7 nursing care along with severe deficit 04/27/2020: Incontinence of both bowel and bladder are limitations Denies any significant new issues Pain is pretty well controlled on the right side for flaccidity muscle spasms 04/26/2020: Patient denies any pain Incontinence requires nursing care 14/12 Pain is pretty well controlled Expressive aphasia makes it difficult to communicate 04/25/20: No major issues Pain controlled Participation with PT 04/24/20: Pt doing pretty well Bowels move after suppository every 48 hrs Decreasing pain medication Decreasing Cozaar due to hypotension per cardiology 04/23/20: BM after suppository every 48hrs Gabapentin BID seems to be working pretty well Using Oxycodone when Gabapentin is not enough No falls 04/22/20: No major issues Expressive aphasia continues Bowels moved yesterday after suppository given every 48 hours 04/21/20: Suppository today and BM Incontinent of B/B Pain improved Does not need to increase Gabapentin 04/20/20: BM yesterday Pain improved Sleepy today Doing better Incontinence : Improve right sided nerve pain Xanax and pain pill helps him BM after suppository Q 48 hours Incontinent of B/B 04/18/20: BM 04/17/20 Eliquis causes blurry vision per sister so will inquire with Dr Gibson regarding Xarelto Incontinent 04/17/20: Bowels not moving so will initiate Dulcolax suppository every 48hrs after laxatives given and he is agreeable for that plan Denies any significant new issues Pain is getting much better with the Gabapentin twice daily and Oxycodone 04/16/20: Right-sided pain still so increased Gabapentin to 300 Mg BID Xanax will help too Oxycodone also helps 04/15/20: Gabapentin maintained Oxycodone maintained Confusion noted? 04/14/20: Monitoring BP Pain right side still present and will increase Gabapentin 04/13/20: Right arm and right leg pain and issue Oxycodone not really helping Nerve pain so will give Gabapentin 04/12/20: Severe pain on right side Oxycodone ordered Participating in therapies well No other pain Pt doing pretty well Expressive aphasia is an issue WBC is 12.4 CMP normal Consulting cardiology Overall doing very well Conferred with RN Checked meds and labs Reviewed therapy notes Objective Exam Vital Signs Vital Signs Date Time Temp Pulse Resp B/P (MAP) Pulse Ox O2 Delivery O2 Flow Rate FiO2 05/22/20 05:03 36.2 80 16 116/70 (85) 98 Room Air Capillary Refill : Less Than 3 Seconds General Appearance: No Apparent Distress, WD/WN, Chronically ill HEENT: PERRL/EOMI, Normal ENT Inspection, Pharynx Normal Neck: Full Range of Motion, Normal Inspection, Non Tender, Supple, Carotid Bruit Respiratory: Chest Non Tender, Lungs Clear, Normal Breath Sounds, No Accessory Muscle Use, No Respiratory Distress Cardiovascular: Regular Rate, Rhythm, No Edema, No Gallop, No JVD, No Murmur, Normal Peripheral Pulses Gastrointestinal: Normal Bowel Sounds, No Organomegaly, No Pulsatile Mass, Non Tender, Soft Back: Normal Inspection, No CVA Tenderness, No Vertebral Tenderness Extremity: Normal Capillary Refill, Normal Inspection, Normal Range of Motion, Non Tender, No Calf Tenderness, No Pedal Edema Neurologic/Psychiatric: Alert, Normal Mood/Affect, Abnormal Gait, Aphasia, Depressed Affect, Disoriented, Motor Weakness (right sided flaccidity) Skin: Normal Color, Warm/Dry Lymphatic: No Adenopathy Results/Procedures Lab Patient resulted labs reviewed. FIM Transfers Therapy Code Descriptions/Definitions Functional [place] Measure: 0=Not Assessed/NA 4=Minimal Assistance 1=Total Assistance 5=Supervision or Setup 2=Maximal Assistance 6=Modified [place] 3=Moderate Assistance 7=Complete IndependenceSCALE: Activities may be completed with or without assistive devices. 7-Ptamxgznpm-fylitql completes the activity by him/herself with no assistance from a helper. 5-Set-up or Clean-up Assistance-helper sets up or cleans up; patient completes activity. [place] assists only prior to or following the activity. 4-Supervision or Touching Assistance-helper provides verbal cues and/or touching/steadying and/or contact guard assistance as patient completes activity. Assistance may be provided throughout the activity or intermittently. 3-Partial/Moderate Assistance-helper does LESS THAN HALF the effort. [place] lifts, holds or supports trunk or limbs, but provides less than half the effort. 2-Substantial/Maximal Assistance-helper does MORE THAN HALF the effort. [place] lifts or holds trunk or limbs and provides more than half the effort. 6-Jjqivpsum-obawez does ALL the effort. Patient does none of the effort to complete the activity. Or, the assistance of 2 or more helpers is required for the patient to complete the activity. If activity was not attempted, code reason: 7-Patient Refused. 9-Not Applicable-not attempted and the patient did not perform the activity before the current illness, exacerbation or injury. 10-Not Attempted due to Environmental Limitations-(lack of equipment, weather restraints, etc.). 88-Not Attempted due to Medical Conditions or Safety Concerns. Roll Left to Right (QC): 5 Sit to Lying (QC): 6 Sit to Stand (QC): 4 Chair/Fnk-sy-Pzqpf Xfer(QC): 4 (toward left) Car Transfer (QC): 4 Gait Training Does the Patient Walk?: Yes Distance: 102ft, 86ft Walk 10 feet (QC): 4 Walk 50 ft with 2 Turns(QC): 3 Walk 150 ft (QC): 88 Walking 10ft/uneven surface-QC: 88 Gait Persons Needed: 1 Gait Assistive Device: Handheld Assist (HH on right, akers rail at left.) Wheelchair Training Does the Pt Use a Wheelchair?: Yes Wheel 50 ft with 2 turns (QC): 6 Wheel 150 ft (QC): 6 Type of Wheelchair: Manual Stair Training Stair Training: Handrails/: 1 handrail #of Steps: 1 1 Step (curb) (QC): 3 4 Steps (QC): 9 12 Steps (QC): 9 Balance Picking up an Object (QC): 88 ADL-Treatment Eating (QC): 6 Oral Hygiene (QC): 6 (completes in w/c with IND) Bathing Location: L Arm, R Arm, L Upper Leg, R Upper Leg, L Lower Leg (includ ing foot), R Lower Leg (including foot), Chest, Abdomen, Buttocks, Perineal Area Shower/Bathe Self (QC): 3 Upper Body Dressing (QC): 2 Lower Body Dressing (QC): 2 On/Off Footwear (QC): 3 Toileting Hygiene (QC): 1 (TD due to 2 person assist this am.) Toilet Transfer (QC): 3 (min A.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 Defib in place Cardiomyopathy HTN Plan: Monitor dysphagia Cardiology consultation IRF protocol 04/11/20: Monitor BP Appreciate Cardiology 04/12/20: Monitor closely Pain management 04/13/20: Gabapentin Oxycodone 04/14/20: Increase Gabapentin Oxycodone BM regimen to increase today may need supp 04/15/20: BM++ Monitor pain of right side 04/16/20: Increase dose of Neurontin Maintain aggressive rehab 04/17/20: BM regimen to include supp Q48 hrs Monitor pain Monitor BP 04/18/20: Increased Gabpentin some more today BM regimen 04/19/20: Manage incontinence Right arm and right leg pain management 04/20/20: Maintain pain control Incontinence management BM regimen 04/21/20: Suppository [id number] Monitor closely Pain control 04/22/20: Continue BM regimen Monitor right sided pain 04/23/20: BM regimen PT OT Incontinence care 04/24/20: Monitor BP Fall risk BM regimen 04/25/20: No med changes Pain controlled 04/26/2020: Pain management Bowel regimen with suppository every 48 hours Continue intensive therapy 04/27/2020: Aggressive therapy Incontinence care Pain control 04/28/20: Monitor closely Periarea powder Monitor pain Check labs in am 04/29/20: Labs reviewed Monitor pain issues 04/30/20: Continue therapy Needs dispo 05/01/20: DC to NH at DC Monitor closely Pain continues and difficult to ascertain due to expressive aphasia 05/02/20: Pain control Incontinence care Needs NH placement 05/04/20: Monitor BM Needs NH 05/05/20: Incontinence care 05/06/20: Await NHP Labs normal 05/07/20: DC to NH once accepted 05/08/20: Monitor closely 05/09/20: Monitor pain NHP 05/10/20: [facility] care requested for DC 05/11/20: Maintain pain control Monitor BP 05/12/20: Improved function slowly 05/13/20: Monitor BP 05/14/20: Await NHP 05/15/20: No concerns 05/16/20: Monitor closely Improved ambulation 05/17/20: Continue aggressive PT/OT/ST 05/18/20: Monitor closely 05/19/20: Pain management 05/20/20: Monitor anger 05/21/20: DC to [facility] tomorrow (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
[2020-05-21] MEDS: SPIRONOLACTONE 25 MG (ALDACTONE) TAB PO SCH (07:53)
[2020-05-21] MEDS: GABAPENTIN 400 MG (NEURONTIN) CAP PO SCH ×2 (07:53→20:56)
[2020-05-21] MEDS: APIXABAN 5 MG (ELIQUIS) TABLET PO SCH ×2 (07:53→20:56)
[2020-05-21] MEDS: BISOPROLOL 5 MG TAB (ZEBETA) PO SCH (07:53)
[2020-05-21] MEDS: ASPIRIN 81 MG CHEW (CHILDREN'S ASA) PO SCH (07:53)
[2020-05-21] MEDS: DICLOFENAC 1% GEL 100 GM (VOLTAREN) TUBE TOP SCH ×4 (07:54→20:57)
[2020-05-21] MEDS: MICONAZOLE 2% POWDER (DESENEX AF) 90 GM TOP SCH ×2 (07:54→20:56)
[2020-05-21] MEDS: SENNA W/DOCUSATE (SENOKOT S) TABLET PO SCH ×2 (09:00→20:56)
[2020-05-21] MEDS: polyethylene glycoL POWDER 17 GM (MIRALAX) PACK PO SCH ×2 (09:00→20:56)
[2020-05-21] MEDS: DOCUSATE SODIUM 100 MG (COLACE) CAP PO SCH ×2 (09:00→20:55)
--- NOTE | 2020-05-21 11:13 | Occupational Ther Daily Note ---
OT Current Status-Daily Note Subjective Pt seen in room, up in bed, agreeable to OT. No pain mentioned except occasional pain in R UE with movement. Appearance Alert, cooperative. Able to help direct care ADL-Treatment Pt able to sit up to EOB with SBA and maintain sitting during ADLs. Washed face, chest and R UE with bath pack but needed help with L UE. Pt able to unbutton shirt and take it off with supervision. Donned t-shirt with just min assist to adjust R shoulder, extra time. Help to doff and don slipper socks but he was able to help lift R leg for positioning. Pt able to get briefs on with mod assist and stood mod assist, helping to pull them up. Balanced with britni walker. Help to block R knee. Also stood mod assist to help pull up shorts. Transferred min assist to L side to wheelchair. Pt propelled self to bathroom and positioned w/c at sink. He shaved with setup and also brushed his teeth with minimal setup. All ADLs took longer than usual. Therapy Code Descriptions/Definitions Functional [place] Measure: 0=Not Assessed/NA 4=Minimal Assistance 1=Total Assistance 5=Supervision or Setup 2=Maximal Assistance 6=Modified [place] 3=Moderate Assistance 7=Complete IndependenceSCALE: Activities may be completed with or without assistive devices. 4-Dgiisladqz-mpqofya completes the activity by him/herself with no assistance from a helper. 5-Set-up or Clean-up Assistance-helper sets up or cleans up; patient completes activity. [place] assists only prior to or following the activity. 4-Supervision or Touching Assistance-helper provides verbal cues and/or touching/steadying and/or contact guard assistance as patient completes activity. Assistance may be provided throughout the activity or intermittently. 3-Partial/Moderate Assistance-helper does LESS THAN HALF the effort. [place] lifts, holds or supports trunk or limbs, but provides less than half the effort. 2-Substantial/Maximal Assistance-helper does MORE THAN HALF the effort. [place] lifts or holds trunk or limbs and provides more than half the effort. 2-Cgutfumdj-oypmls does ALL the effort. Patient does none of the effort to complete the activity. Or, the assistance of 2 or more helpers is required for the patient to complete the activity. If activity was not attempted, code reason: 7-Patient Refused. 9-Not Applicable-not attempted and the patient did not perform the activity before the current illness, exacerbation or injury. 10-Not Attempted due to Environmental Limitations-(lack of equipment, weather restraints, etc.). 88-Not Attempted due to Medical Conditions or Safety Concerns. Oral Hygiene (QC): 5 Upper Body Dressing (QC): 3 (min assist) Lower Body Dressing (QC): 3 (mod assist) Other Treatment Pt education in neuromotor facilitation techniques, verbal understanding. Pt demonstrated some shoulder elevation and retraction, with facilitation. Taping to R shoulder to help reduce subluxation. Gentle PROM and joint compression completed, as well as weight bearing. No limited joint movement except for some discomfort at end of ranges or with movements that trigger spasms. Pt left up in w/c, all needs met, R UE supported on pillow. Education OT Patient Education: Modified ADL techniques, Progress toward Goal/Update tx plan, Purpose of tx/functional activities, Safety issues Teaching Recipient: Patient Teaching Methods: Demonstration, Discussion Response to Teaching: Verbalize Understanding OT Short Term Goals Short Term Goals Eatin Oral hygiene: 5 Toileting hygiene: 2 Shower/bathe self: 2 Upper body dressin Lower body dressin Putting on/taking off footwear: 2 OT Family Psychologist Goals Halfway Goals Time Frame: May 29, 2020 Eating (QC): 6 Oral Hygiene (QC): 6 Toileting Hygiene (QC): 3 Shower/Bathe Self (QC): 5 Upper Body Dressing (QC): 6 Lower Body Dressing (QC): 3 On/Off Footwear (QC): 6 Additional Goals: 1-Demonstrate ADL Tasks, 2-Verbalize Understanding, 3- ImproveStrength/[place] 1=Demonstrate adherence to instructed precautions during ADL tasks. 2=Patient will verbalize/demonstrate understanding of assistive devices/modifications for ADL. 3=Patient will improve strength/tolerance for activity to enable patient to perform ADL's. OT Education/Plan Discharge Recommendations Plan/Recommendations: Continue POC Treatment Plan/Plan of Care Patient would benefit from OT for education, treatment and training to promote independence in ADL's, mobility, safety and/or upper extremity function for ADL's. Plan of Care: ADL Retraining, Caregiver Training, Concurrent Therapy, Functional Mobility, Group Exercise/Act as Ind, Orthotic Fitting/Training, UE Funct Exercise/Act, UE Neuromus Re-Ed/Coord, Visual/Perceptual Retrain, W/C Management Training Treatment Duration: Apr 24, 2020 Frequency: At least 5 of 7 days/Wk (IRF) Estimated Hrs Per Day: 1.5 hours per day Agreement: Yes Rehab Potential: Fair Time/GCodes Start Time: 08:30 Stop Time: 09:45 Total Time Billed (hr/min): 75 Billed Treatment Time visit, 60 minutes ADL, 15 minutes neuromotor DORINDA ALMAZAN OT May 21, 2020 11:13
--- NOTE | 2020-05-21 13:35 | Speech Therapy Daily Note ---
Speech Daily Progress Note Subjective Date Seen by Provider: May 21, 2020 Time Seen by Provider: 00:30 Patient was up in recliner following PT. When asked if he was tired he sail "oh man!". Objective Patient answered yes/no questions with 90% given minimal cues. Patient answered general info questions with 25% using verbal and written answers with mod cues. Patient took several small sips as trained of the nectar consistency water without difficulty. Assessment Assessment Current Status: Good Progress Treatment Plan Continue Plan of Care Speech Short Term Goals Short Term Goals Short Term Goals 1) The patient will complete OME for improved speech production at each session with 80% or greater accuracy. 2) The patient will complete word finding tasks with 80% or greater accuracy. 3) The patient will complete expressive language tasks 80% or greater accuracy. 4) The patient will tolerate least restrictive diet level without s/s of aspiration at 80% or greater accuracy. 5) The patient will utilize compensatory strategies as trained 80% or greater accuracy. Speech Mcfp Goals Mcfp Goals Patient will improve cognitive-communication abilities for completion of daily needs with minimal assist. Patient will maintain adequate nutrition/hydration via safe effective swallow function. Speech-Plan Patient/Family Goals Patient/Family Goals: Patient will discharge to a SNF when insurance and details for dc are in place. 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
--- NOTE | 2020-05-21 16:05 | Physical Therapy Daily Note ---
PT Daily Note-Current Subjective Pt sitting in recliner upon arrival. Pt agrees to PT. Pain Location: Right Location Body Site: Knee Pain Description: Ache Comment: Pt reports but doesn't rate pain on R side both UE & LE. Mental Status Patient Orientation: Person, Place, Non-Verbal/Aphasic Transfers SCALE: Activities may be completed with or without assistive devices. 4-Bapjgfjlfc-ziguznq completes the activity by him/herself with no assistance from a helper. 5-Set-up or Clean-up Assistance-helper sets up or cleans up; patient completes activity. [place] assists only prior to or following the activity. 4-Supervision or Touching Assistance-helper provides verbal cues and/or touching/steadying and/or contact guard assistance as patient completes activity. Assistance may be provided throughout the activity or intermittently. 3-Partial/Moderate Assistance-helper does LESS THAN HALF the effort. [place] lifts, holds or supports trunk or limbs, but provides less than half the effort. 2-Substantial/Maximal Assistance-helper does MORE THAN HALF the effort. [place] lifts or holds trunk or limbs and provides more than half the effort. 6-Pwqfgiwnd-gqmbkv does ALL the effort. Patient does none of the effort to complete the activity. Or, the assistance of 2 or more helpers is required for the patient to complete the activity. If activity was not attempted, code reason: 7-Patient Refused. 9-Not Applicable-not attempted and the patient did not perform the activity before the current illness, exacerbation or injury. 10-Not Attempted due to Environmental Limitations-(lack of equipment, weather restraints, etc.). 88-Not Attempted due to Medical Conditions or Safety Concerns. Sit to Lying (QC): 6 Lying to Sitting/Side of Bed(Q: 6 Sit to Stand (QC): 4 Weight Bearing Full Weight Bearing Full Weight Bearing Gait Training Does the Patient Walk?: Yes Distance: 20' x5 Walk 10 feet (QC): 4 Walk 50 ft with 2 Turns(QC): 4 Gait Persons Needed: 1 Gait Assistive Device: Handheld Assist LABOR CONTRACTOR for R side and akers railing for L side with [facility] following to sit after each walk. Wheelchair Training Does the Pt Use a Wheelchair?: Yes Wheel 50 ft with 2 turns (QC): 5 Wheel 150 ft (QC): 5 Type of Wheelchair: Manual Exercises Seated Therapy Exercises: Ankle pumps, Long arc quads, Hip flexion, Kicking activity, Hip abd/add Seated Reps: 15 NuStep Minutes: 10 NuStep Workload: 7 Treatments ([id number]) SPT to [facility] then propels WCH in hallway. Pt completes Seated EX as well as NuStep for 10m at WL 7. Pt ambulates in hallway (see Gait section). Pt propels WCH back to room and SPT back to recliner. All needs met, call light in hand. ([id number]) Pt asks to return to bed. ALUMINUM MOLDING MACHINE OPERATOR assists with SPT from recliner to EOB then pt lays Supine in bed. ALUMINUM MOLDING MACHINE OPERATOR assists repositioning to comfort. All needs met, call light in hand at end of tx. Assessment Current Status: Good Progress Pt is gaining strength, activity tolerance, independence/safety with tasks. PT Short Term Goals Short Term Goals Time Frame: Apr 18, 2020 Roll Left & Right: 3 Sit to lyin Lying to sitting on side of be: 3 Sit to stand: 3 Chair/tzo-sn-ktljc transfer: 3 PT Certified Home Health Aide Goals Certified Home Health Aide Goals PT Certified Home Health Aide Goals Time Frame: May 02, 2020 Roll Left & Right (QC): 4 Sit to Lying (QC): 4 Lying-Sitting on Side/Bed(QC): 4 Sit to Stand (QC): 3 (Zoya) Chair/Owz-mx-Gxamz Xfer(QC): 3 (Zoya) Toilet Transfer (QC): 3 (Zoya) Car Transfer (QC): 3 (Zoya) Does the Patient Walk: No and Walking Goal NOT indicated Walk 10 feet (QC): 88 Walk 50ft with 2 Turns (QC): 88 Walk 150 ft (QC): 88 Walking 10ft on Uneven Surface: 88 1 Step (curb) (QC): 88 4 Steps (QC): 88 12 Steps (QC): 88 Picking up an Object (QC): 88 Wheel 50 feet with 2 turns (QC: 4 Wheel 150 feet: 4 PT Plan Problem List Problem List: Activity Tolerance, Safety, Balance, Gait Treatment/Plan Treatment Plan: Continue Plan of Care Treatment Plan: Bed Mobility, Education, Functional Activity [place], Functional Strength, Group Therapy, Gait, Safety, Therapeutic Exercise, Transfers Treatment Duration: May 01, 2020 Frequency: At least 5 of 7 days/Wk (IRF) Estimated Hrs Per Day: 1.5 hours per day Patient and/or Family Agrees t: Yes Safety Risks/Education Patient Education: Gait Training, Transfer Techniques, Correct Positioning, Safety Issues Teaching Recipient: Patient Teaching Methods: Discussion Response to Teaching: Verbalize Understanding Time/GCodes Time In: 1000 Time Out: 1100 Total Billed Treatment Time: 60 Total Billed Treatment 1, WCH (15m), GT (20m) & EX x2 (25m) ([id number]) 1, FA (15m) CATALINO CAMPBELL PTA May 21, 2020 16:05
[2020-05-21 16:51] VITALS: BP 106/64
[2020-05-22 05:03] VITALS: BP 116/70
--- NOTE | 2020-05-22 05:49 | Discharge Summary ---
Diagnosis/Chief Complaint Date of Admission Apr 10, 2020 at 14:20 Date of Discharge Discharge Date: May 10, 2020 Discharge Summary Discharge Physical Examination Allergies: Coded Allergies: No Known Drug Allergies (Unverified , 02/25/15) Vitals & I&Os Vital Signs Date Time Temp Pulse Resp B/P (MAP) Pulse Ox O2 Delivery O2 Flow Rate FiO2 05/22/20 05:03 36.2 80 16 116/70 (85) 98 Room Air Hospital Course Labs (last 24 hrs) Laboratory Tests 04/11/20 04:35: White Blood Count 13.4H, Red Blood Count 5.08, Hemoglobin 15.0, Hematocrit 46, Mean Corpuscular Volume 91, Mean Corpuscular Hemoglobin 30, Mean Corpuscular Hemoglobin Concent 33, Red Cell Distribution Width 12.9, Platelet Count 327, Mean Platelet Volume 11.5, Immature Granulocyte % (Auto) 1, Neutrophils (%) (Auto) 67, Lymphocytes (%) (Auto) 16, Monocytes (%) (Auto) 14H, Eosinophils (%) (Auto) 2, Basophils (%) (Auto) 0, Neutrophils # (Auto) 9.0H, Lymphocytes # (Auto) 2.1, Monocytes # (Auto) 1.8H, Eosinophils # (Auto) 0.3, Basophils # (Auto) 0.1, Immature Granulocyte # (Auto) 0.2H, Sodium Level 137, Potassium Level 4.2, Chloride Level 106, Carbon Dioxide Level 21, Anion Gap 10, Blood Urea Nitrogen 19H, Creatinine 0.81, Estimat Glomerular Filtration Rate > 60, BUN/Creatinine Ratio 23, Glucose Level 95, Calcium Level 8.7, Corrected Calcium 9.3, Total Bilirubin 0.5, Aspartate Amino Transf (AST/SGOT) 110H, Alanine Aminotransferase (ALT/SGPT) 150H, Alkaline Phosphatase 125, Total Protein 6.3L, Albumin 3.2 04/15/20 05:57: White Blood Count 9.5, Red Blood Count 5.13, Hemoglobin 14.9, Hematocrit 46, Mean Corpuscular Volume 90, Mean Corpuscular Hemoglobin 29, Mean Corpuscular Hemoglobin Concent 32, Red Cell Distribution Width 13.0, Platelet Count 292, Mean Platelet Volume 11.9, Immature Granulocyte % (Auto) 1, Neutrophils (%) (Auto) 62, Lymphocytes (%) (Auto) 24, Monocytes (%) (Auto) 10, Eosinophils (%) (Auto) 2, Basophils (%) (Auto) 1, Neutrophils # (Auto) 5.9, Lymphocytes # (Auto) 2.3, Monocytes # (Auto) 1.0, Eosinophils # (Auto) 0.2, Basophils # (Auto) 0.1, Immature Granulocyte # (Auto) 0.1, Sodium Level 135, Potassium Level 4.7, Chloride Level 100, Carbon Dioxide Level 25, Anion Gap 10, Blood Urea Nitrogen 21H, Creatinine 0.96, Estimat Glomerular Filtration Rate > 60, BUN/Creatinine Ratio 22, Glucose Level 80, Calcium Level 8.7, Corrected Calcium 9.3, Total Bilirubin 0.5, Aspartate Amino Transf (AST/SGOT) 64H, Alanine Aminotransferase (ALT/SGPT) 93H, Alkaline Phosphatase 121, Total Protein 6.5, Albumin 3.3 04/22/20 05:30: White Blood Count 7.7, Red Blood Count 5.36, Hemoglobin 15.8, Hematocrit 48, Mean Corpuscular Volume 90, Mean Corpuscular Hemoglobin 30, Mean Corpuscular Hemoglobin Concent 33, Red Cell Distribution Width 13.2, Platelet Count 239, Mean Platelet Volume 11.5, Immature Granulocyte % (Auto) 0, Neutrophils (%) (Auto) 59, Lymphocytes (%) (Auto) 26, Monocytes (%) (Auto) 11, Eosinophils (%) (Auto) 3, Basophils (%) (Auto) 0, Neutrophils # (Auto) 4.6, Lymphocytes # (Auto) 2.0, Monocytes # (Auto) 0.8, Eosinophils # (Auto) 0.2, Basophils # (Auto) 0.0, Immature Granulocyte # (Auto) 0.0, Sodium Level 140, Potassium Level 4.5, Chloride Level 105, Carbon Dioxide Level 25, Anion Gap 10, Blood Urea Nitrogen 17, Creatinine 0.90, Estimat Glomerular Filtration Rate > 60, BUN/Creatinine Ratio 19, Glucose Level 89, Calcium Level 9.3, Corrected Calcium 9.8, Total Bilirubin 0.5, Aspartate Amino Transf (AST/SGOT) 61H, Alanine Aminotransferase (ALT/SGPT) 97H, Alkaline Phosphatase 134, Total Protein 6.7, Albumin 3.4 04/26/20 07:15: White Blood Count 7.5, Red Blood Count 5.51, Hemoglobin 16.4, Hematocrit 50, Mean Corpuscular Volume 91, Mean Corpuscular Hemoglobin 30, Mean Corpuscular Hemoglobin Concent 33, Red Cell Distribution Width 13.3, Platelet Count 190, Mean Platelet Volume 11.5, Sodium Level 139, Potassium Level 4.0, Chloride Level 105, Carbon Dioxide Level 24, Anion Gap 10, Blood Urea Nitrogen 15, Creatinine 0.93, Estimat Glomerular Filtration Rate > 60, BUN/Creatinine Ratio 16, Glucose Level 110H, Calcium Level 9.7, Corrected Calcium 9.9, Total Bilirubin 0.6, Aspartate Amino Transf (AST/SGOT) 58H, Alanine Aminotransferase (ALT/SGPT) 101H, Alkaline Phosphatase 142H, Total Protein 7.5, Albumin 3.8, Lactic Acid Level 1.33 04/29/20 06:10: White Blood Count 7.8, Red Blood Count 5.43, Hemoglobin 15.6, Hematocrit 49, Mean Corpuscular Volume 91, Mean Corpuscular Hemoglobin 29, Mean Corpuscular Hemoglobin Concent 32, Red Cell Distribution Width 13.4, Platelet Count 168, Mean Platelet Volume 11.8, Immature Granulocyte % (Auto) 0, Neutrophils (%) (Auto) 58, Lymphocytes (%) (Auto) 27, Monocytes (%) (Auto) 11, Eosinophils (%) (Auto) 4, Basophils (%) (Auto) 0, Neutrophils # (Auto) 4.5, Lymphocytes # (Auto) 2.1, Monocytes # (Auto) 0.8, Eosinophils # (Auto) 0.3, Basophils # (Auto) 0.0, Immature Granulocyte # (Auto) 0.0, Sodium Level 142, Potassium Level 4.4, Chloride Level 107, Carbon Dioxide Level 24, Anion Gap 11, Blood Urea Nitrogen 18, Creatinine 0.96, Estimat Glomerular Filtration Rate > 60, BUN/Creatinine Ratio 19, Glucose Level 84, Calcium Level 8.7, Corrected Calcium 9.1, Total Bilirubin 0.5, Aspartate Amino Transf (AST/SGOT) 77H, Alanine Aminotransferase (ALT/SGPT) 141H, Alkaline Phosphatase 131, Total Protein 6.3L, Albumin 3.5 05/06/20 05:22: White Blood Count 7.0, Red Blood Count 5.07, Hemoglobin 14.6, Hematocrit 46, Mean Corpuscular Volume 91, Mean Corpuscular Hemoglobin 29, Mean Corpuscular Hemoglobin Concent 32, Red Cell Distribution Width 13.8, Platelet Count 151, Mean Platelet Volume 12.0, Immature Granulocyte % (Auto) 1, Neutrophils (%) (Auto) 55, Lymphocytes (%) (Auto) 29, Monocytes (%) (Auto) 12, Eosinophils (%) (Auto) 3, Basophils (%) (Auto) 0, Neutrophils # (Auto) 3.9, Lymphocytes # (Auto) 2.0, Monocytes # (Auto) 0.9, Eosinophils # (Auto) 0.2, Basophils # (Auto) 0.0, Immature Granulocyte # (Auto) 0.1, Sodium Level 141, Potassium Level 4.9, Chloride Level 105, Carbon Dioxide Level 28, Anion Gap 8, Blood Urea Nitrogen 17, Creatinine 1.14, Estimat Glomerular Filtration Rate > 60, BUN/Creatinine Ratio 15, Glucose Level 89, Calcium Level 8.9, Corrected Calcium 9.5, Total Bilirubin 0.4, Aspartate Amino Transf (AST/SGOT) 38H, Alanine Aminotransferase (ALT/SGPT) 75H, Alkaline Phosphatase 108, Total Protein 6.1L, Albumin 3.3 05/10/20 06:00: Coronavirus 2019 ([facility]) Negative 05/13/20 05:59: White Blood Count 7.9, Red Blood Count 5.29, Hemoglobin 15.6, Hematocrit 47, Mean Corpuscular Volume 88, Mean Corpuscular Hemoglobin 30, Mean Corpuscular Hemoglobin Concent 34, Red Cell Distribution Width 14.0, Platelet Count 169, Mean Platelet Volume 11.4, Immature Granulocyte % (Auto) 1, Neutrophils (%) (Auto) 58, Lymphocytes (%) (Auto) 28, Monocytes (%) (Auto) 11, Eosinophils (%) (Auto) 3, Basophils (%) (Auto) 0, Neutrophils # (Auto) 4.5, Lymphocytes # (Auto) 2.2, Monocytes # (Auto) 0.9, Eosinophils # (Auto) 0.2, Basophils # (Auto) 0.0, Immature Granulocyte # (Auto) 0.0, Sodium Level 140, Potassium Level 4.1, Chloride Level 105, Carbon Dioxide Level 26, Anion Gap 9, Blood Urea Nitrogen 14, Creatinine 0.87, Estimat Glomerular Filtration Rate > 60, BUN/Creatinine Ratio 16, Glucose Level 77, Calcium Level 9.0, Corrected Calcium 9.3, Total Bilirubin 0.5, Aspartate Amino Transf (AST/SGOT) 84H, Alanine Aminotransferase (ALT/SGPT) 139H, Alkaline Phosphatase 131, Total Protein 6.7, Albumin 3.6 05/20/20 06:00: White Blood Count 7.1, Red Blood Count 5.06, Hemoglobin 14.5, Hematocrit 44, Mean Corpuscular Volume 88, Mean Corpuscular Hemoglobin 29, Mean Corpuscular Hemoglobin Concent 33, Red Cell Distribution Width 14.5, Platelet Count 192, Mean Platelet Volume 11.4, Immature Granulocyte % (Auto) 0, Neutrophils (%) (Auto) 54, Lymphocytes (%) (Auto) 29, Monocytes (%) (Auto) 12, Eosinophils (%) (Auto) 4, Basophils (%) (Auto) 1, Neutrophils # (Auto) 3.8, Lymphocytes # (Auto) 2.1, Monocytes # (Auto) 0.8, Eosinophils # (Auto) 0.3, Basophils # (Auto) 0.0, Immature Granulocyte # (Auto) 0.0, Sodium Level 140, Potassium Level 4.2, Chloride Level 106, Carbon Dioxide Level 27, Anion Gap 7, Blood Urea Nitrogen 14, Creatinine 0.87, Estimat Glomerular Filtration Rate > 60, BUN/Creatinine Ratio 16, Glucose Level 83, Calcium Level 9.0, Corrected Calcium 9.6, Total Bilirubin 0.4, Aspartate Amino Transf (AST/SGOT) 37H, Alanine Aminotransferase (ALT/SGPT) 65H, Alkaline Phosphatase 143H, Total Protein 6.3L, Albumin 3.3 Pending Labs Laboratory Tests 04/11/20 04:35: White Blood Count 13.4, Red Blood Count 5.08, Hemoglobin 15.0, Hematocrit 46, Mean Corpuscular Volume 91, Mean Corpuscular Hemoglobin 30, Mean Corpuscular Hemoglobin Concent 33, Red Cell Distribution Width 12.9, Platelet Count 327, Mean Platelet Volume 11.5, Immature Granulocyte % (Auto) 1, Neutrophils (%) (Auto) 67, Lymphocytes (%) (Auto) 16, Monocytes (%) (Auto) 14, Eosinophils (%) (Auto) 2, Basophils (%) (Auto) 0, Neutrophils # (Auto) 9.0, Lymphocytes # (Auto) 2.1, Monocytes # (Auto) 1.8, Eosinophils # (Auto) 0.3, Basophils # (Auto) 0.1, Immature Granulocyte # (Auto) 0.2, Sodium Level 137, Potassium Level 4.2, Chloride Level 106, Carbon Dioxide Level 21, Anion Gap 10, Blood Urea Nitrogen 19, Creatinine 0.81, Estimat Glomerular Filtration Rate > 60, BUN/Creatinine Ratio 23, Glucose Level 95, Calcium Level 8.7, Corrected Calcium 9.3, Total Bilirubin 0.5, Aspartate Amino Transf (AST/SGOT) 110, Alanine Aminotransferase (ALT/SGPT) 150, Alkaline Phosphatase 125, Total Protein 6.3, Albumin 3.2 04/15/20 05:57: White Blood Count 9.5, Red Blood Count 5.13, Hemoglobin 14.9, Hematocrit 46, Mean Corpuscular Volume 90, Mean Corpuscular Hemoglobin 29, Mean Corpuscular Hemoglobin Concent 32, Red Cell Distribution Width 13.0, Platelet Count 292, Mean Platelet Volume 11.9, Immature Granulocyte % (Auto) 1, Neutrophils (%) (Auto) 62, Lymphocytes (%) (Auto) 24, Monocytes (%) (Auto) 10, Eosinophils (%) (Auto) 2, Basophils (%) (Auto) 1, Neutrophils # (Auto) 5.9, Lymphocytes # (Auto) 2.3, Monocytes # (Auto) 1.0, Eosinophils # (Auto) 0.2, Basophils # (Auto) 0.1, Immature Granulocyte # (Auto) 0.1, Sodium Level 135, Potassium Level 4.7, Chloride Level 100, Carbon Dioxide Level 25, Anion Gap 10, Blood Urea Nitrogen 21, Creatinine 0.96, Estimat Glomerular Filtration Rate > 60, BUN/Creatinine Ratio 22, Glucose Level 80, Calcium Level 8.7, Corrected Calcium 9.3, Total Bilirubin 0.5, Aspartate Amino Transf (AST/SGOT) 64, Alanine Aminotransferase (ALT/SGPT) 93, Alkaline Phosphatase 121, Total Protein 6.5, Albumin 3.3 04/22/20 05:30: White Blood Count 7.7, Red Blood Count 5.36, Hemoglobin 15.8, Hematocrit 48, Mean Corpuscular Volume 90, Mean Corpuscular Hemoglobin 30, Mean Corpuscular Hemoglobin Concent 33, Red Cell Distribution Width 13.2, Platelet Count 239, Mean Platelet Volume 11.5, Immature Granulocyte % (Auto) 0, Neutrophils (%) (Auto) 59, Lymphocytes (%) (Auto) 26, Monocytes (%) (Auto) 11, Eosinophils (%) (Auto) 3, Basophils (%) (Auto) 0, Neutrophils # (Auto) 4.6, Lymphocytes # (Auto) 2.0, Monocytes # (Auto) 0.8, Eosinophils # (Auto) 0.2, Basophils # (Auto) 0.0, Immature Granulocyte # (Auto) 0.0, Sodium Level 140, Potassium Level 4.5, Chloride Level 105, Carbon Dioxide Level 25, Anion Gap 10, Blood Urea Nitrogen 17, Creatinine 0.90, Estimat Glomerular Filtration Rate > 60, BUN/Creatinine Ratio 19, Glucose Level 89, Calcium Level 9.3, Corrected Calcium 9.8, Total Bilirubin 0.5, Aspartate Amino Transf (AST/SGOT) 61, Alanine Aminotransferase (ALT/SGPT) 97, Alkaline Phosphatase 134, Total Protein 6.7, Albumin 3.4 04/26/20 07:15: White Blood Count 7.5, Red Blood Count 5.51, Hemoglobin 16.4, Hematocrit 50, Mean Corpuscular Volume 91, Mean Corpuscular Hemoglobin 30, Mean Corpuscular Hemoglobin Concent 33, Red Cell Distribution Width 13.3, Platelet Count 190, Mean Platelet Volume 11.5, Sodium Level 139, Potassium Level 4.0, Chloride Level 105, Carbon Dioxide Level 24, Anion Gap 10, Blood Urea Nitrogen 15, Creatinine 0.93, Estimat Glomerular Filtration Rate > 60, BUN/Creatinine Ratio 16, Glucose Level 110, Calcium Level 9.7, Corrected Calcium 9.9, Total Bilirubin 0.6, Aspartate Amino Transf (AST/SGOT) 58, Alanine Aminotransferase (ALT/SGPT) 101, A lkaline Phosphatase 142, Total Protein 7.5, Albumin 3.8, Lactic Acid Level 1.33 04/29/20 06:10: White Blood Count 7.8, Red Blood Count 5.43, Hemoglobin 15.6, Hematocrit 49, Mean Corpuscular Volume 91, Mean Corpuscular Hemoglobin 29, Mean Corpuscular Hemoglobin Concent 32, Red Cell Distribution Width 13.4, Platelet Count 168, Mean Platelet Volume 11.8, Immature Granulocyte % (Auto) 0, Neutrophils (%) (Auto) 58, Lymphocytes (%) (Auto) 27, Monocytes (%) (Auto) 11, Eosinophils (%) (Auto) 4, Basophils (%) (Auto) 0, Neutrophils # (Auto) 4.5, Lymphocytes # (Auto) 2.1, Monocytes # (Auto) 0.8, Eosinophils # (Auto) 0.3, Basophils # (Auto) 0.0, Immature Granulocyte # (Auto) 0.0, Sodium Level 142, Potassium Level 4.4, Chloride Level 107, Carbon Dioxide Level 24, Anion Gap 11, Blood Urea Nitrogen 18, Creatinine 0.96, Estimat Glomerular Filtration Rate > 60, BUN/Creatinine Rat io 19, Glucose Level 84, Calcium Level 8.7, Corrected Calcium 9.1, Total Bilirubin 0.5, Aspartate Amino Transf (AST/SGOT) 77, Alanine Aminotransferase (ALT/SGPT) 141, Alkaline Phosphatase 131, Total Protein 6.3, Albumin 3.5 05/06/20 05:22: White Blood Count 7.0, Red Blood Count 5.07, Hemoglobin 14.6, Hematocrit 46, Mean Corpuscular Volume 91, Mean Corpuscular Hemoglobin 29, Mean Corpuscular Hemoglobin Concent 32, Red Cell Distribution Width 13.8, Platelet Count 151, Mean Platelet Volume 12.0, Immature Granulocyte % (Auto) 1, Neutrophils (%) (Auto) 55, Lymphocytes (%) (Auto) 29, Monocytes (%) (Auto) 12, Eosinophils (%) (Auto) 3, Basophils (%) (Auto) 0, Neutrophils # (Auto) 3.9, Lymphocytes # (Auto) 2.0, Monocytes # (Auto) 0.9, Eosinophils # (Auto) 0.2, Basophils # (Auto) 0.0, Immature Granulocyte # (Auto) 0.1, Sodium Level 141, Potassium Level 4.9, Chloride Level 105, Carbon Dioxide Level 28, Anion Gap 8, Blood Urea Nitrogen 17, Creatinine 1.14, Estimat Glomerular Filtration Rate > 60, BUN/Creatinine Ratio 15, Glucose Level 89, Calcium Level 8.9, Corrected Calcium 9.5, Total Bilirubin 0.4, Aspartate Amino Transf (AST/SGOT) 38, Alanine Aminotransferase (ALT/SGPT) 75, Alkaline Phosphatase 108, Total Protein 6.1, Albumin 3.3 05/10/20 06:00: Coronavirus 2019 ([facility]REA) Negative 05/13/20 05:59: White Blood Count 7.9, Red Blood Count 5.29, Hemoglobin 15.6, Hematocrit 47, Mean Corpuscular Volume 88, Mean Corpuscular Hemoglobin 30, Mean Corpuscular Hemoglobin Concent 34, Red Cell Distribution Width 14.0, Platelet Count 169, Mean Platelet Volume 11.4, Immature Granulocyte % (Auto) 1, Neutrophils (%) (Auto) 58, Lymphocytes (%) (Auto) 28, Monocytes (%) (Auto) 11, Eosinophils (%) (Auto) 3, Basophils (%) (Auto) 0, Neutrophils # (Auto) 4.5, Lymphocytes # (Auto) 2.2, Monocytes # (Auto) 0.9, Eosinophils # (Auto) 0.2, Basophils # (Auto) 0.0, Immature Granulocyte # (Auto) 0.0, Sodium Level 140, Potassium Level 4.1, Chloride Level 105, Carbon Dioxide Level 26, Anion Gap 9, Blood Urea Nitrogen 14, Creatinine 0.87, Estimat Glomerular Filtration Rate > 60, BUN/Creatinine Ratio 16, Glucose Level 77, Calcium Level 9.0, Corrected Calcium 9.3, Total Bilirubin 0.5, Aspartate Amino Transf (AST/SGOT) 84, Alanine Aminotransferase (ALT/SGPT) 139, Alkaline Phosphatase 131, Total Protein 6.7, Albumin 3.6 05/20/20 06:00: White Blood Count 7.1, Red Blood Count 5.06, Hemoglobin 14.5, Hematocrit 44, Mean Corpuscular Volume 88, Mean Corpuscular Hemoglobin 29, Mean Corpuscular Hemoglobin Concent 33, Red Cell Distribution Width 14.5, Platelet Count 192, Mean Platelet Volume 11.4, Immature Granulocyte % (Auto) 0, Neutrophils (%) (Auto) 54, Lymphocytes (%) (Auto) 29, Monocytes (%) (Auto) 12, Eosinophils (%) (Auto) 4, Basophils (%) (Auto) 1, Neutrophils # (Auto) 3.8, Lymphocytes # (Auto) 2.1, Monocytes # (Auto) 0.8, Eosinophils # (Auto) 0.3, Basophils # (Auto) 0.0, Immature Granulocyte # (Auto) 0.0, Sodium Level 140, Potassium Level 4.2, Chloride Level 106, Carbon Dioxide Level 27, Anion Gap 7, Blood Urea Nitrogen 14, Creatinine 0.87, Estimat Glomerular Filtration Rate > 60, BUN/Creatinine Ratio 16, Glucose Level 83, Calcium Level 9.0, Corrected Calcium 9.6, Total Bilirubin 0.4, Aspartate Amino Transf (AST/SGOT) 37, Alanine Aminotransferase (ALT/SGPT) 65, Alkaline Phosphatase 143, Total Protein 6.3, Albumin 3.3 Discharge Home Medications: Active Scripts Active Boudreauxs (Zinc Oxide) 28 Gm Oint 0 Gm TOP NEEDED PRN Lotrimin AF (Miconazole Nitrate) 90 Gm Powder 0 Gm TOP BID Bisacodyl 10 Mg Supp.rect 10 Mg AZ Q48H PRN Senna-Time S Tablet (Sennosides/Docusate Sodium) 1 Each Tablet 1 Ea PO BID Lactulose 20 Gm/30 Ml Solution 10 Gm PO BID PRN Xanax Tablet (Alprazolam) 0.25 Mg Tab 0.25 Mg PO Q8H PRN Gabapentin 400 Mg Capsule 400 Mg PO BID Oxyir Tablet (Oxycodone HCl) 5 Mg Tab 5 Mg PO Q4H PRN Voltaren (Diclofenac Sodium) 100 Gm Gel..gram. 0 Gm TOP QID Aspirin 81 Mg Tab.chew 81 Mg PO DAILY Spironolactone 25 Mg Tablet 25 Mg PO DAILY Bisoprolol Fumarate 5 Mg Tablet 5 Mg PO DAILY Lipitor (Atorvastatin Calcium) 40 Mg Tablet 40 Mg PO HS Eliquis (Apixaban) 5 Mg Tablet 5 Mg PO BID Reported Xarelto (Rivaroxaban) 10 Mg Tablet 10 Mg PO DAILY Hydralazine HCl 100 Mg Tablet 100 Mg PO TID Flecainide Acetate 50 Mg Tablet 50 Mg PO Cardizem Cd (Diltiazem HCl) 240 Mg Cap.er.24h 240 Mg PO DAILY Coreg (Carvedilol) 25 Mg Tab 50 Mg PO BID TAKES 2 (25MG) TABS Amlodipine Besylate 10 Mg Tablet 10 Mg PO DAILY Instructions to patient/family Please see electronic discharge instructions given to patient. 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
[2020-05-22] MEDS: GABAPENTIN 400 MG (NEURONTIN) CAP PO SCH (07:56)
[2020-05-22] MEDS: ASPIRIN 81 MG CHEW (CHILDREN'S ASA) PO SCH (07:56)
[2020-05-22] MEDS: SENNA W/DOCUSATE (SENOKOT S) TABLET PO SCH (07:57)
[2020-05-22] MEDS: DOCUSATE SODIUM 100 MG (COLACE) CAP PO SCH (07:57)
[2020-05-22] MEDS: APIXABAN 5 MG (ELIQUIS) TABLET PO SCH (07:57)
[2020-05-22] MEDS: MICONAZOLE 2% POWDER (DESENEX AF) 90 GM TOP SCH (07:57)
[2020-05-22] MEDS: BISOPROLOL 5 MG TAB (ZEBETA) PO SCH (07:57)
[2020-05-22] MEDS: SPIRONOLACTONE 25 MG (ALDACTONE) TAB PO SCH (07:57)
--- NOTE | 2020-05-22 09:34 | Behavioral Health Consult ---
Consult- Consult Date Seen by Provider: May 22, 2020 Time Seen by Provider: 08:00 CPT Code: 64333 Psychodiagnostic Examination, 96262 +Interactive Complexity, 1 unit(s) Start Time: 8:00 am Stop Time: 8:32 am Chief Complaint: anger Referral: Juan Mcdonald is a 59-year-old, , male referred by Dr. Onofre for a clinical diagnostic assessment. Information for this evaluation was gathered from self-report and medical records. Presenting Problem: The presenting clinical problem is anger. She reported he is sad. He initially said he has been sad forever, but later said he could not recall if he was sad prior to his most recent stroke. He reported he knows in his mind what the words are that he wants to say but cannot get the words out. He stated his right side has limited movement. He reported he has had two str okes but then raised three fingers. He seemed to think that moving to [facility] might be better, but then said he does not know. He talked about being frustrated that he cannot find words, that his right side was hit hard but this stroke, that he has had multiple strokes, has not seen much of his family, and that he is not recovering as quickly as he did with his previous strokes. Overall symptoms observed or reported requiring current level of care include agitation, anger, depressed mood, and medical problems. Therapist talked with Shannan Quinonez RN, on 05/21/20 who reported that Juan has limited speech, but it has improved. Shannan reported that Juan is frustrated and has had some anger outbursts where he started cussing. Shannan reported he seems to be most frustrated with word finding difficulties. Therapist talked with nurse Edwards today who reported that Jermaine anger has been improving and he has joked around some with staff. Grace reported he has been frustrated. Grace reported he is being moved to [facility] [place] today. Observations/Mental Status: Nurse Edwards arranged the computer for Juan who was lying in the bed during the appointment. Grace was briefly present then it was just Juan. Overall appearance was unremarkable clinically. Juan appeared to be an adequate historian. Observed gait and gross motor movements indicated protective guarding and limited movements and a reliance on mechanical assistance (i.e.,walker, wheelchair). Jermaine general approach to the evaluation was cooperative. Orientation was intact for person, place, time, and situation. Juan evidenced good understanding of the reason for the appointment. Juans in-session behavior was cooperative. The predominant mood was sad with flat affect. Immediate attention and concentration was grossly intact. Memory functioning appeared to be intact. Level of intellectual functioning compared to same age peers was unable to be adequately assessed. Thought processes were found to be marked by incomplete/blocked ideas. He often said um, so, no, and come on. Thought content appeared normal. There was no report or evidence of hallucinations or delusions. Psychomotor functioning was within normal limits. Tone of voice was normal and controlled. Expressive speech was marked by word-finding difficulties. Eye contact was good. Insight was average. Overall, style of interacting during the appointment was appropriate and motivated. Current/Previous Mental Health Treatment: Past psychiatric history was reported as none. Medical History: Medical conditions were reported as CVA. Drug allergies: none reported. Current physician is Dr. Parmar. Recreational Drug Usage: Substance abuse history was reported as some substance abuse, but it has been a long time ago. Unable to further clarify. Educational and Vocational Histories: Juan reported he has been on disability because of his previous strokes for a while, but could not specify how long. 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 He reported he also worked other jobs but was unable to find the words. He stated he did attend college but could not say what he majored in. Family and Social Histories: Juan reported that he has been living in [place] with family for approximately two and a half years, but then seemed uncertain. He reported he previously lived in [place]. He stated he has a sister in the area. He indicated about having other siblings but was not able to find the words to give any more detail. He reported he is not and does not have any kids. Summary of Assessment Information/Recommendations: Juan is a 59-year-old male with history of CVA. He denied any prior mental health treatment. It was unclear is he had and mental health symptoms prior to his most recent CVA. He indicated sadness and frustration are currently an issue due to his limited physical abilities and expressive aphasia. Following current assessment, presenting problem and symptoms appear consistent with a preliminary diagnosis of F43.25 Adjustment Disorder with Mixed Disturbance of Emotions and Conduct. Current emotional symptoms are of moderate intensity. Overall, prognosis is estimated to be guarded. Therapist talked with him about the possibility of medication to potentially help with his mood, but he said no. However, it was hard to tell if that is what he meant as there were other times he said no but it was not an appropriate response. 1. It is recommended that he be given writing materials to determine if that would be a more effective way for him to communicate. At times during his appointment he used air writing when he could not find words and therapist was able to understand what he was writing. 2. An anti-depressant may be beneficial in helping to improve his mood, however he may not agree to this type of medication. ICD-10 Diagnostic Impressions: F43.25 Adjustment Disorder with Mixed Disturbance of Emotions and Conduct RODRIGO CHOWDHURY May 22, 2020 09:34
[2020-05-22] MEDS: polyethylene glycoL POWDER 17 GM (MIRALAX) PACK PO SCH (09:54)
[2020-05-22] MEDS: DICLOFENAC 1% GEL 100 GM (VOLTAREN) TUBE TOP SCH ×2 (09:54→13:03)
--- NOTE | 2020-05-22 11:25 | Occupational Ther Daily Note ---
OT Current Status-Daily Note Subjective Pt alert in bed, pt agrees to shower this am. Pt is to d/c later this date. Smell of urine present. Pt denies pain. Mental Status/Objective Patient Orientation: Person, Place, Situation ADL-Treatment Therapy Code Descriptions/Definitions Functional [place] Measure: 0=Not Assessed/NA 4=Minimal Assistance 1=Total Assistance 5=Supervision or Setup 2=Maximal Assistance 6=Modified [place] 3=Moderate Assistance 7=Complete IndependenceSCALE: Activities may be completed with or without assistive devices. 0-Hidlfunbcw-nvjhkur completes the activity by him/herself with no assistance from a helper. 5-Set-up or Clean-up Assistance-helper sets up or cleans up; patient completes activity. [place] assists only prior to or following the activity. 4-Supervision or Touching Assistance-helper provides verbal cues and/or touching/steadying and/or contact guard assistance as patient completes activity. Assistance may be provided throughout the activity or intermittently. 3-Partial/Moderate Assistance-helper does LESS THAN HALF the effort. [place] lifts, holds or supports trunk or limbs, but provides less than half the effort. 2-Substantial/Maximal Assistance-helper does MORE THAN HALF the effort. [place] lifts or holds trunk or limbs and provides more than half the effort. 4-Jtequlttf-udjufs does ALL the effort. Patient does none of the effort to complete the activity. Or, the assistance of 2 or more helpers is required for the patient to complete the activity. If activity was not attempted, code reason: 7-Patient Refused. 9-Not Applicable-not attempted and the patient did not perform the activity before the current illness, exacerbation or injury. 10-Not Attempted due to Environmental Limitations-(lack of equipment, weather restraints, etc.). 88-Not Attempted due to Medical Conditions or Safety Concerns. Eating (QC): 6 Oral Hygiene (QC): 6 (IND in front of sink in w/c. ) Bathing Location: L Arm, R Arm, L Upper Leg, R Upper Leg, L Lower Leg (including foot), R Lower Leg (including foot), Chest, Abdomen, Buttocks, Perineal Area Shower/Bathe Self (QC): 4 (Pt completes with SBA/ CGA in sc.) Upper Body Dressing (QC): 3 (min A to R UE) Lower Body Dressing (QC): 3 (Pt threads BLE, sit to stand CGA at gbs, OT pulls pants over hips.) On/Off Footwear: 4 (CGA to stabilize RLE during donning sock. Pt utilizes C grasp of sock to place over B feet.) Toileting Hygiene (QC): 3 (min A on sc) Toilet Transfer (QC): 3 (Pt sit to stand from w/c to gb and w/c is replaced with sc. CGA-min A) Other Treatment Pt bed mob with SBA. SPT to L/ strong side with CGA. Pt propels w/c to shower room, completing showering/ dressing as outlined. Pt sit to stand at gb level with CGA, though at one point doffs L hand from gb and requires min A to right due to decreased balance. Pt educated on safety. Pt returns to room, able to manipulate foot rest and parallel aguero w/c beside bed wihtout cues for transfer toward L side. Min A SPT to bed. Pt able to adjust self, all needs met, call light in reach. Education OT Patient Education: Correct positioning, Modified ADL techniques, Purpose of tx/functional activities, Safety issues, Transfer techniques Teaching Recipient: Patient Teaching Methods: Demonstration, Discussion Response to Teaching: Verbalize Understanding, Return Demonstration OT Short Term Goals Short Term Goals Eatin Oral hygiene: 5 Toileting hygiene: 2 Shower/bathe self: 2 Upper body dressin Lower body dressin Putting on/taking off footwear: 2 OT Verifying Machine Operator Goals Care Home Goals Time Frame: May 29, 2020 Eating (QC): 6 Oral Hygiene (QC): 6 Toileting Hygiene (QC): 3 Shower/Bathe Self (QC): 5 Upper Body Dressing (QC): 6 Lower Body Dressing (QC): 3 On/Off Footwear (QC): 6 Additional Goals: 1-Demonstrate ADL Tasks, 2-Verbalize Understanding, 3- ImproveStrength/[place] 1=Demonstrate adherence to instructed precautions during ADL tasks. 2=Patient will verbalize/demonstrate understanding of assistive devices/modifications for ADL. 3=Patient will improve strength/tolerance for activity to enable patient to perform ADL's. OT Education/Plan Problem List/Assessment Assessment: Decreased Activ Tolerance, Decreased Safety Aware, Decreased UE Strength, Dependent Transfers, Impaired Coordination, Impaired Funct Balance, Impaired I ADL's, Impaired Self-Care Skills, Restricted Funct UE ROM, Visual- Perceptual Deficit Discharge Recommendations Plan/Recommendations: Continue POC Therapy Discharge Recommendati: 24 Hour Supervision, Post Acute OT Treatment Plan/Plan of Care Treatment,Training & Education: Yes Patient would benefit from OT for education, treatment and training to promote independence in ADL's, mobility, safety and/or upper extremity function for ADL's. Plan of Care: ADL Retraining, Caregiver Training, Concurrent Therapy, Fu nctional Mobility, Group Exercise/Act as Ind, Orthotic Fitting/Training, UE Funct Exercise/Act, UE Neuromus Re-Ed/Coord, Visual/Perceptual Retrain, W/C Management Training Treatment Duration: Apr 24, 2020 Frequency: At least 5 of 7 days/Wk (IRF) Estimated Hrs Per Day: 1.5 hours per day Agreement: Yes Rehab Potential: Fair Time/GCodes Start Time: 08:50 Stop Time: 09:45 Total Time Billed (hr/min): 50 Billed Treatment Time 1, ADL 3 (50) FATIMAH KERNS OTR May 22, 2020 11:25
--- NOTE | 2020-05-22 11:27 | Physical Therapy Daily Note ---
PT Daily Note-Current Subjective Pt laying Supine in bed upon arrival. Pt agrees to PT for QC scoring for DC later today. Pain Location: No Pain Reported Mental Status Patient Orientation: Person, Place Transfers SCALE: Activities may be completed with or without assistive devices. 4-Ctnnpywkdo-qujpwcs completes the activity by him/herself with no assistance f rom a helper. 5-Set-up or Clean-up Assistance-helper sets up or cleans up; patient completes activity. [place] assists only prior to or following the activity. 4-Supervision or Touching Assistance-helper provides verbal cues and/or touching/steadying and/or contact guard assistance as patient completes activity. Assistance may be provided throughout the activity or intermittently. 3-Partial/Moderate Assistance-helper does LESS THAN HALF the effort. [place] lifts, holds or supports trunk or limbs, but provides less than half the effort. 2-Substantial/Maximal Assistance-helper does MORE THAN HALF the effort. [place] lifts or holds trunk or limbs and provides more than half the effort. 9-Qssconnko-kchzcg does ALL the effort. Patient does none of the effort to complete the activity. Or, the assistance of 2 or more helpers is required for the patient to complete the activity. If activity was not attempted, code reason: 7-Patient Refused. 9-Not Applicable-not attempted and the patient did not perform the activity before the current illness, exacerbation or injury. 10-Not Attempted due to Environmental Limitations-(lack of equipment, weather restraints, etc.). 88-Not Attempted due to Medical Conditions or Safety Concerns. Roll Left & Right (QC): 6 Sit to Lying (QC): 6 Lying to Sitting/Side of Bed(Q: 6 Sit to Stand (QC): 4 Chair/Ayf-qd-Vgedk Xfer(QC): 4 Toilet Transfer (QC): 4 Weight Bearing Full Weight Bearing Full Weight Bearing Gait Training Does the Patient Walk?: Yes Distance: 20' x5 Walk 10 feet (QC): 4 Walk 50 ft with 2 Turns(QC): 4 Walk 150 ft (QC): 88 Walking 10ft/uneven surface-QC: 88 Gait Persons Needed: 1 Gait Assistive Device: Handheld Assist Uses MED[employer] JOB TITLES for R side & hallway railing for L side although Walking goal is not indicated due to safety with balance. Wheelchair Training Does the Pt Use a Wheelchair?: Yes Wheel 50 ft with 2 turns (QC): 5 Wheel 150 ft (QC): 5 Type of Wheelchair: Manual Stair Training #of Steps: 0 1 Step (curb) (QC): 88 4 Steps (QC): 88 12 Steps (QC): 88 Steps are not attempted due to balance safety at this time. Balance Picking up an Object (QC): 5 Special Test Comments Pt can attempt from seated position using automobile seat cover installer. Treatments Pt performs QC scoring items listed above. Pt uses BR before Pt resting in recliner at end of tx with all needs met, call light in hand. Assessment Current Status: Good Progress Pt has improved with strength and activity tolerance of activities although still working on upright balance with standing for safety. PT Short Term Goals Short Term Goals Time Frame: Apr 18, 2020 Roll Left & Right: 3 Sit to lyin Lying to sitting on side of be: 3 Sit to stand: 3 Chair/bvm-wa-rfekm transfer: 3 PT Compound Finisher Goals Fpc Goals PT Compound Finisher Goals Time Frame: May 02, 2020 Roll Left & Right (QC): 4 Sit to Lying (QC): 4 Lying-Sitting on Side/Bed(QC): 4 Sit to Stand (QC): 3 (Zoya) Chair/Zpz-xr-Tcnsv Xfer(QC): 3 (Zoya) Toilet Transfer (QC): 3 (Zoya) Car Transfer (QC): 3 (Zoya) Does the Patient Walk: No and Walking Goal NOT indicated Walk 10 feet (QC): 88 Walk 50ft with 2 Turns (QC): 88 Walk 150 ft (QC): 88 Walking 10ft on Uneven Surface: 88 1 Step (curb) (QC): 88 4 Steps (QC): 88 12 Steps (QC): 88 Picking up an Object (QC): 88 Wheel 50 feet with 2 turns (QC: 4 Wheel 150 feet: 4 PT Plan Problem List Problem List: Safety, Balance, Gait Treatment/Plan Treatment Plan: Continue Plan of Care Treatment Plan: Bed Mobility, Education, Functional Activity [place], Functional Strength, Group Therapy, Gait, Safety, Therapeutic Exercise, Transfers Treatment Duration: May 01, 2020 Frequency: At least 5 of 7 days/Wk (IRF) Estimated Hrs Per Day: 1.5 hours per day Patient and/or Family Agrees t: Yes Safety Risks/Education Patient Education: Transfer Techniques, Correct Positioning, Safety Issues Teaching Recipient: Patient Teaching Methods: Discussion Response to Teaching: Verbalize Understanding Time/GCodes Time In: 1045 Time Out: 1115 Total Billed Treatment Time: 30 Total Billed Treatment 1, LULI (20m) & FATOUMATA (10m) CATALINO CAMPBELL PTA May 22, 2020 11:27
--- NOTE | 2020-05-22 13:04 | NUR ---
UNABLE TO ADMINISTER VOLTAREN GEL, AIDE HAS PACKED IT UP
[2020-05-22 14:00] VITALS: BP 116/70
--- NOTE | 2020-05-22 14:05 | NUR ---
REPORT CALLED TO ROLANDO MITCHELL AT [facility].
--- NOTE | 2020-05-22 14:16 | NUR ---
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 This will NOT be a skilled status; he is insured Medicaid only and, therefore, there are no skilled benefits to access. Faxed final discharge orders and instructions to [facility]. CARE Assessment completed with patient and processed with [facility]. Continuum of care packet prepared to accompany patient. Unit RN aware of all timelines. Updated [facility] of lightweight wheelchair final order for billing purposes.
--- NOTE | 2020-05-22 15:08 | Therapy Team Discharge Summary ---
Therapy Discharge Summary Discharge Recommendations Date of Discharge Therapy D/C Recommendations: Assisted Living, Group Home (TCU/NH) Physical Therapy Patient came to rehab following a CVA. Upon evaluation patient performed bed mobility and transfers with max assist, car transfer max assist, and propelled a manual WC 150' with max assist. Patient has been performing bed mobility and transfer training, balance and endurance training, functional strengthening, gait training, and ambulation. Patient has made some progress and has met all of his terminal computer operator goals. Now, patient performs bed mobility with independence, supine <-> sit with independence, sit <-> stand CGA, transfers CGA, he can ambulate 50' using handrail on the wall with CGA, and can propel a manual WC 150' with setup. Patient is discharging from this facility today and will be discharged from PT at this time. Occupational Therapy Decreased Activ Tolerance, Decreased Safety Aware, Decreased UE Strength, Dependent Transfers, Impaired Coordination, Impaired Funct Balance, Impaired I ADL's, Impaired Self-Care Skills, Restricted Funct UE ROM, Visual-Perceptual Deficit PT Wine Bottle Inspector Goals Fdc Goals PT Wine Bottle Inspector Goals Time Frame: May 02, 2020 Roll Left to Right (QC): 4 Sit to Lying (QC): 4 Lying-Sitting on Side/Bed(QC): 4 Sit to Stand (QC): 3 (Zoya) Chair/Nby-ph-Dweqn Xfer(QC): 3 (Zoya) Car Transfer (QC): 3 (Zoya) Does the Patient Walk: No and Walking Goal NOT indicated Walk 10 feet (QC): 88 Walk 10ft-Uneven Surface(QC): 88 Walk 50ft with 2 Turns (QC): 88 Walk 150 ft (QC): 88 Wheel 50 feet with 2 turns (QC: 4 1 Step (curb) (QC): 88 4 Steps (QC): 88 12 Steps (QC): 88 Picking up an Object (QC): 88 OT Fdc Goals Fdc Goals Time Frame: May 29, 2020 Eating (QC): 6 Oral Hygiene (QC): 6 Shower/Bathe Self (QC): 5 Upper Body Dressing (QC): 6 Lower Body Dressing (QC): 3 On/Off Footwear (QC): 6 Toileting Hygiene (QC): 3 Toilet/Commode Transfer (QC): 3 (Zoya) Additional Goals: 1-Demonstrate ADL Tasks, 2-Verbalize Understanding, 3- ImproveStrength/[place] 1=Demonstrate adherence to instructed precautions during ADL tasks. 2=Patient will verbalize/demonstrate understanding of assistive device s/modifications for ADL. 3=Patient will improve strength/tolerance for activity to enable patient to perform ADL's. Speech Wine Bottle Inspector Goals Wine Bottle Inspector Goals Patient will improve cognitive-communication abilities for completion of daily needs with minimal assist. Patient will maintain adequate nutrition/hydration via safe effective swallow function. DARRYL BARTLETT PT May 22, 2020 15:08
--- NOTE | 2020-05-22 15:27 | Therapy Team Discharge Summary ---
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 Patient exhibited moderate to severe expressive aphasia. Patient progressed to 50-60% with moderate cuing. Patient did not meet his speech goals. He discharged to local SNF this date whe re he will continue speech therapy. PT It Operations Specialist Goals It Operations Specialist Goals PT Skilled Nursing Goals Time Frame: May 02, 2020 Roll Left to Right (QC): 4 Sit to Lying (QC): 4 Lying-Sitting on Side/Bed(QC): 4 Sit to Stand (QC): 3 (Zoya) Chair/Bch-ss-[place] Xfer(QC): 3 (Zoya) Car Transfer (QC): 3 (Zoya) Does the Patient Walk: No and Walking Goal NOT indicated Walk 10 feet (QC): 88 Walk 10ft-Uneven Surface(QC): 88 Walk 50ft with 2 Turns (QC): 88 Walk 150 ft (QC): 88 Wheel 50 feet with 2 turns (QC: 4 1 Step (curb) (QC): 88 4 Steps (QC): 88 12 Steps (QC): 88 Picking up an Object (QC): 88 OT It Operations Specialist Goals It Operations Specialist Goals Time Frame: May 29, 2020 Eating (QC): 6 Oral Hygiene (QC): 6 Shower/Bathe Self (QC): 5 Upper Body Dressing (QC): 6 Lower Body Dressing (QC): 3 On/Off Footwear (QC): 6 Toileting Hygiene (QC): 3 Toilet/Commode Transfer (QC): 3 (Zoya) Additional Goals: 1-Demonstrate ADL Tasks, 2-Verbalize Understanding, 3- ImproveStrength/[place] 1=Demonstrate adherence to instructed precautions during ADL tasks. 2=Patient will verbalize/demonstrate understanding of assistive devices/modifications for ADL. 3=Patient will improve strength/tolerance for activity to enable patient to perform ADL's. Speech Skilled Nursing Goals It Operations Specialist Goals Patient will improve cognitive-communication abilities for completion of daily needs with minimal assist. Patient will maintain adequate nutrition/hydration via safe effective swallow function. FIDEL WORKMAN May 22, 2020 15:27
--- NOTE | 2020-05-23 15:40 | Therapy Team Discharge Summary ---
Therapy Discharge Summary Discharge Recommendations Date of Discharge May 22, 2020 at 14:00 Therapy D/C Recommendations: Assisted Living, [facility] (TCU/NH) Occupational Therapy Pt admits with CVA with R side flaccidity, aphasia, hemianopsia. Pt admits with the following abilities: eating min A, oral care Zoya, UB dressing mod A, showering/ LB dressing/ footwear/ toilet hygiene with TD with Ax2. Admits with impulsivity and decreased ability to problem solve/ sequence. Pt and OT staff work towards higher fx IND through AE training, safety training, w/c mobility, UE stretching/ strengthening, visual scanning/ compensation, ADL retraining and adaptive techniques. Pt d/c's to [facility] after increasing fx IND to complete the following: eating/ oral care IND, showering CGA, UB dressing/ footwear/ toilet transfer min A, and LB dressing mod A. Pt limited by aphasia and problem solving at times. Pt d/c's from ARU, continued OT services recommended. Decreased Activ Tolerance, Decreased Safety Aware, Decreased UE Strength, Dependent Transfers, Impaired Coordination, Impaired Funct Balance, Impaired I ADL's, Impaired Self-Care Skills, Restricted Funct UE ROM, Visual-Perceptual Deficit PT Custodial Goals Voip Technician Goals PT Custodial Goals Time Frame: May 02, 2020 Roll Left to Right (QC): 4 Sit to Lying (QC): 4 Lying-Sitting on Side/Bed(QC): 4 Sit to Stand (QC): 3 (Zoya) Chair/Bgz-et-Khclt Xfer(QC): 3 (Zoya) Car Transfer (QC): 3 (Zoya) Does the Patient Walk: No and Walking Goal NOT indicated Walk 10 feet (QC): 88 Walk 10ft-Uneven Surface(QC): 88 Walk 50ft with 2 Turns (QC): 88 Walk 150 ft (QC): 88 Wheel 50 feet with 2 turns (QC: 4 1 Step (curb) (QC): 88 4 Steps (QC): 88 12 Steps (QC): 88 Picking up an Object (QC): 88 OT Voip Technician Goals Voip Technician Goals Time Frame: May 29, 2020 Eating (QC): 6 Oral Hygiene (QC): 6 Shower/Bathe Self (QC): 5 Upper Body Dressing (QC): 6 Lower Body Dressing (QC): 3 On/Off Footwear (QC): 6 Toileting Hygiene (QC): 3 Toilet/Commode Transfer (QC): 3 (Zoya) Additional Goals: 1-Demonstrate ADL Tasks, 2-Verbalize Understanding, 3-ImproveStrength/[place] 1=Demonstrate adherence to instructed precautions during ADL tasks. 2=Patient will verbalize/demonstrate understanding of assistive devices/modifications for ADL. 3=Patient will improve strength/tolerance for activity to enable patient to perform ADL's. Speech Voip Technician Goals Custodial Goals Patient will improve cognitive-communication abilities for completion of daily needs with minimal assist. Patient will maintain adequate nutrition/hydration via safe effective swallow function. FATIMAH KERNS OTR May 23, 2020 15:40
== END 2020-05-22 14:00 | DRG 57 ==
PROVIDERS: ADMIT Internal Medicine; ATTEND Internal Medicine
DX: I69.251 Hemiplegia and hemiparesis following other nontraumatic intracranial hemorrhage affecting right dominant side (principal); I50.22 Chronic systolic (congestive) heart failure; I42.9 Cardiomyopathy, unspecified; I69.320 Aphasia following cerebral infarction; I69.398 Other sequelae of cerebral infarction; I69.392 Facial weakness following cerebral infarction; I69.328 Other speech and language deficits following cerebral infarction; I69.391 Dysphagia following cerebral infarction; I69.312 Visuospatial deficit and spatial neglect following cerebral infarction; I69.322 Dysarthria following cerebral infarction; R13.12 Dysphagia, oropharyngeal phase; H53.461 Homonymous bilateral field defects, right side; I69.319 Unspecified symptoms and signs involving cognitive functions following cerebral infarction; I11.0 Hypertensive heart disease with heart failure; I48.91 Unspecified atrial fibrillation; R15.9 Full incontinence of feces; R32 Unspecified urinary incontinence; I95.9 Hypotension, unspecified; Z79.01 Long term (current) use of anticoagulants; Z79.82 Long term (current) use of aspirin; Z79.899 Other long term (current) drug therapy; Z95.810 Presence of automatic (implantable) cardiac defibrillator
CPT/HCPCS: 36415; 74230; 80053; 83605; 85025; 85027; 87635; 93005

== ENCOUNTER → 2020-07-23 | Outpatient (CLI) | payer MEDICAID ==
[~2020-07-23] MED LIST changes: -ACETAMINOPHEN 500 MG TAB (TYLENOL) PO PRN; +ALPR.25T PO; +ATOR40TA PO; +BISA10SU8 PR; -BISACODYL 10 MG SUPP (DULCOLAX) PR PRN; -CALCIUM CARBONATE 500 MG (TUMS) TAB.CHEW PO PRN; +CRV25T PO; +DICL100G18 TOP; +DILT240C86 PO; -DOCUSATE SODIUM 100 MG (COLACE) CAP PO PRN; +FLEC50TA PO; -FLEET ENEMA ADULT 1 EA BTL PR PRN; +GABA-490 PO; +LACT20SO2 PO; -LOPERAMIDE 2 MG (IMODIUM) TABLET PO PRN; -MELATONIN 3 MG TABLET PO PRN; +MICO90PO TOP; -ONDANSETRON 4 MG (ZOFRAN) ORAL DISSOLVE TAB PO PRN; +OXC5T PO; +RIVA10TA PO; +SENN-20 PO; +SPIR25TA5 PO; +ZINC28PA TOP; -diphenhydrAMINE 25 MG TAB (BENADRYL) PO PRN; -guaiFENesin/CODEINE (ROBITUSSIN AC) 10ML UDC PO PRN
== END ==
LOC: CARD 09:30
PROVIDERS: ATTEND Internal Medicine Cardiovascular Disease
DX: I11.9 Hypertensive heart disease without heart failure (principal)
CPT/HCPCS: 93306

== ENCOUNTER 2021-01-08 10:50 | Observation (INO) | payer MEDICAID ==
[~2021-01-08] VITALS: Ht 177.8 cm; Wt 99.6 kg
[2021-01-08] MEDS ORDERED: LORazepam INJ 2 MG/ML (ATIVAN) VIAL ONE (11:01)
--- NOTE | 2021-01-08 11:10 | ED Neurological Problem ---
General Stated Complaint: SEIZURE Source: EMS Exam Limitations: no limitations (NATALIE JIMENEZ APRN) History of Present Illness Date Seen by Provider: Jan 08, 2021 Time Seen by Provider: 11:06 Initial Comments To ER by [facility] from [facility] where he resides with reports of seizure-like activity. Reportedly the patient has had a couple of CVAs and has had seizures intermittently though he is on no antiepileptic medications. Today he was noticed to have some seizures encompassing the entire body. 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 Upon EMS arrival to the [place] [facility] today he was noticed to have full body seizure activity. IV access was unable to be established so he was given a total of 5 mg of intranasal Versed. Seizure activity persisted 10 minutes after administration of Versed for a total duration of 14 minutes. Timing/Duration: 1-3 hours Severity: moderate (NATALIE JIMENEZ APRN) Allergies and Home Medications Allergies Coded Allergies: No Known Drug Allergies (Unverified , 01/08/21) Home Medications ALPRAZolam 0.25 Mg Tablet, 0.25 MG PO Q8H PRN for ANXIETY, (Reported) Last Action: Continued Acetaminophen 500 Mg Tablet, 1,000 MG PO TID PRN for PAIN-MILD (1-4), (Reported) Last Action: Continued Apixaban 5 Mg Tablet, 5 MG PO BID, (Reported) Last Action: Continued Aspirin 81 Mg Tab.chew, 81 MG PO DAILY, (Reported) Last Action: Continued Atorvastatin Calcium 40 Mg Tablet, 40 MG PO HS, (Reported) Last Action: Continued Bisacodyl 10 Mg Supp.rect, 10 MG RC Q48H PRN for CONSTIPATION-3RD LINE, (Reported) Last Action: Continued Bisoprolol Fumarate 5 Mg Tablet, 5 MG PO DAILY, (Reported) HOLD MED AND NOTIFY MD FOR SBP LESS THAN 100 OR DBP LESS THEN 60 Last Action: Converted Diclofenac Sodium 20 Gm Gel..gram., 1 GM TP QID, (Reported) Last Action: Continued Duloxetine HCl 60 Mg Capsule.dr, 60 MG PO HS, (Reported) Last Action: Converted Gabapentin 800 Mg Tablet, 800 MG PO TID, (Reported) Last Action: Converted Lactulose 20 Gm/30 Ml Solution, 15 ML PO BID PRN for CONSTIPATION-3RD LINE, (Reported) Last Action: Continued Levetiracetam 500 Mg Tablet, 500 MG PO BID Prescribed by: ILIA JAMES on 01/10/21 1042 Oxycodone HCl 5 Mg Tablet, 5 MG PO 0700,1300,1800,2300, (Reported) Last Action: Continued Sennosides/Docusate Sodium 1 Each Tablet, 1 EACH PO BID, (Reported) Last Action: Continued Zinc Oxide 57 Gm Oint...g., 1 APPLIC TP TID PRN for SKIN CHANGES, (Reported) Last Action: Continued Patient Home Medication List Home Medication List Reviewed: Yes (NATALIE JIMENEZ APRN) Review of Systems Review of Systems Constitutional: see HPI Eyes: No Symptoms Reported Ears, Nose, Mouth, Throat: no symptoms reported Respiratory: no symptoms reported Cardiovascular: no symptoms reported Genitourinary: no symptoms reported Musculoskeletal: see HPI Skin: no symptoms reported Psychiatric/Neurological: No Symptoms Reported (NATALIE JIMENEZ APRN) Past Ejrpqkm-Vjqwhu-Oacggl Hx Seasonal Allergies Seasonal Allergies: No (NATALIE JIMENEZ APRN) Past Medical History Surgeries: Yes (finger, achillies,) Orthopedic Respiratory: No Cardiac: Yes Atrial Fibrillation, Hypertension Neurological: Yes Stroke Genitourinary: No Gastrointestinal: No Musculoskeletal: Yes Chronic Back Pain Endocrine: No HEENT: No Cancer: No Psychosocial: No Integumentary: No Blood Disorders: No Adverse Reaction/Blood Tranf: No (NATALIE JIMENEZ APRN) Family Medical History No Pertinent Family Hx (NATALIE JIMENEZ APRN) Physical Exam Vital Signs Vital Signs - First Documented 01/08/21 01/08/21 10:50 11:00 Temp 36.6 Pulse 80 Resp 18 B/P (MAP) 178/100 (126) Pulse Ox 98 O2 Delivery Nasal Cannula O2 Flow Rate 3.00 (TONY MCFARLANE MD) Vital Signs Capillary Refill : (NATALIE JIMENEZ APRN) Height, Weight, BMI Height: 5'10.00" Weight: 258lbs. 15.0oz. 117.892830ew; 30.94 BMI Method:Stated General Appearance: WD/WN, other (On arrival he does have spasm of the right upper eyelid and seizure-like activity/twitching of the right upper arm/deltoid muscle. He has nonverbal. He is hypertensive at 180/100 heart rate 80 atrial fibrillation. He was incontinent of urine with this seizure activity here. 1 mg of lorazepam was given IV which terminated seizure after 1 to 2 minutes. Keppra 1 g IV ordered at this time.) Neck: non-tender, full range of motion Respiratory: normal breath sounds, no respiratory distress, no accessory muscle use Cardiovascular: regular rate, rhythm, no murmur Gastrointestinal: normal bowel sounds, soft Extremities: non-tender, normal inspection Cra[place] Nerves: normal hearing, normal speech, PERRL Skin: normal color, warm/dry (NATALIE JIMENEZ APRN) Stroke NIH Stroke Scale Assessment Gaze: Partial Gaze Palsy (1), Total: Stroke Thrombolytic Exclusion Age 18 or Over: Yes Acute intenal hemorrhage: No History of CVA: Yes Uncontrolled Coagulation Defec: No Intracranial Hemorrhage: No Severe Hypertension: No GI or Bleed: No Subarachnoid Hemorrhage: No Intracranial Neoplasm/Aneurysm: No Oral Anticoagulants: No Surgery or Trauma: No Puncture of Non-Compressible V: No Recent CPR: No Diabetic Hemorrhagic Retinopat: No Organ Biopsy: No Recent Obstetric Delivery: No Glucose: No Significant Hepatic Dysfunctio: No NIH Stoke Scale >22: No Bacterial Endocarditis: No Pericarditis: No Improving Symptoms: No Platelets: No (NATALIE JIMENEZ APRN) Focused Exam Lactic Acid Level Laboratory Tests Test 01/08/21 14:10 Lactic Acid Level 2.12 MMOL/L (0.50-2.00) *H (TONY MCFARLANE MD) Progress/Results/Core Measures Results/Orders Lab Results Laboratory Tests Test 01/08/21 10:55 01/08/21 12:23 01/08/21 14:10 01/08/21 14:23 Range/Units White Blood Count 14.7 H 4.3-11.0 10^3/uL Red Blood Count 5.18 4.30-5.52 10^6/uL Hemoglobin 16.1 13.3-17.7 g/dL Hematocrit 51 40-54 % Mean Corpuscular Volume 99 80-99 fL Mean Corpuscular Hemoglobin 31 25-34 pg Mean Corpuscular Hemoglobin Concent 32 32-36 g/dL Red Cell Distribution Width 12.6 10.0-14.5 % Platelet Count 321 130-400 10^3/uL Mean Platelet Volume 10.7 9.0-12.2 fL Immature Granulocyte % (Auto) 2 % Neutrophils (%) (Auto) 59 42-75 % Lymphocytes (%) (Auto) 24 12-44 % Monocytes (%) (Auto) 12 0-12 % Eosinophils (%) (Auto) 3 0-10 % Basophils (%) (Auto) 1 0-10 % Neutrophils # (Auto) 8.7 H 1.8-7.8 10^3/uL Lymphocytes # (Auto) 3.5 1.0-4.0 10^3/uL Monocytes # (Auto) 1.7 H 0.0-1.0 10^3/uL Eosinophils # (Auto) 0.4 H 0.0-0.3 10^3/uL Basophils # (Auto) 0.1 0.0-0.1 10^3/uL Immature Granulocyte # (Auto) 0.3 H 0.0-0.1 10^3/uL Neutrophils % (Manual) 54 % Lymphocytes % (Manual) 30 % Monocytes % (Manual) 13 % Eosinophils % (Manual) 3 % Blood Morphology Comment NORMAL Prothrombin Time 14.6 12.2-14.7 SEC INR Comment 1.1 0.8-1.4 Activated Partial Thromboplast Time 36 H 24-35 SEC D-Dimer 0.57 H 0.00-0.49 UG/ML Sodium Level 142 135-145 MMOL/L Potassium Level 4.1 3.6-5.0 MMOL/L Chloride Level 107 98-107 MMOL/L Carbon Dioxide Level 12 L 21-32 MMOL/L Anion Gap 23 H 5-14 MMOL/L Blood Urea Nitrogen 14 7-18 MG/DL Creatinine 1.29 0.60-1.30 MG/DL Estimat Glomerular Filtration Rate 57 BUN/Creatinine Ratio 11 Glucose Level 105 70-105 MG/DL Calcium Level 9.6 8.5-10.1 MG/DL Corrected Calcium 9.2 8.5-10.1 MG/DL Total Bilirubin 0.3 0.1-1.0 MG/DL Aspartate Amino Transf (AST/SGOT) 30 5-34 U/L Alanine Aminotransferase (ALT/SGPT) 35 0-55 U/L Alkaline Phosphatase 90 40-136 U/L Total Creatine Kinase 110 30-200 U/L Troponin I < 0.028 <0.028 NG/ML Total Protein 8.1 6.4-8.2 GM/DL Albumin 4.5 3.2-4.5 GM/DL Urine Color YELLOW Urine Clarity CLEAR Urine pH 5.5 5-9 Urine Specific [place] >=1.030 1.016-1.022 Urine Protein 1+ H NEGATIVE Urine Glucose (UA) NEGATIVE NEGATIVE Urine Ketones NEGATIVE NEGATIVE Urine Nitrite NEGATIVE NEGATIVE Urine Bilirubin NEGATIVE NEGATIVE Urine Urobilinogen 0.2 < = 1.0 MG/DL Urine Leukocyte Esterase NEGATIVE NEGATIVE Urine RBC (Auto) 1+ H NEGATIVE Urine RBC NONE /HPF Urine WBC 0-2 /HPF Urine Squamous Epithelial Cells RARE /HPF Urine Crystals NONE /LPF Urine Bacteria NEGATIVE /HPF Urine Casts NONE /LPF Urine Mucus SMALL H /LPF Urine Culture Indicated NO Lactic Acid Level 2.12 *H 0.50-2.00 MMOL/L Arterial Blood pH 7.24 *L 7.37-7.43 (TONY MCFARLANE MD) Micro Results Microbiology 01/08/21 Blood Culture - Preliminary, Resulted No growth 01/08/21 Blood Culture - Preliminary, Resulted No growth (TONY MCFARLANE MD) Vital Signs/I&O 01/08/21 01/08/21 10:50 11:00 Temp 36.6 Pulse 80 Resp 18 B/P (MAP) 178/100 (126) Pulse Ox 98 95 O2 Delivery Nasal Cannula O2 Flow Rate 3.00 (TONY MCFARLANE MD) Departure Communication (Admissions) NAME: JAYSHREE GORDON [facility] REC#: [id number] PT STATUS: REG ER : 1960 PHYSICIAN: NATALIE JIMENEZ APRN ADMIT DATE: 01/08/21/ER Draft Date of Exam:01/08/21 CT ANGIO HEAD/NECK PROCEDURE: CT angiography of the head and CT angiography of the neck with and without contrast. TECHNIQUE: Contiguous noncontrast images were obtained from the skull base through the vertex. After intravenous contrast administration, helical CT angiography of the neck was performed. Source data was reformatted into 3D MIP projections. Delayed post contrast acquisition was also obtained. Auto Exposure Controls were utilized during the CT exam to meet ALARA standards for radiation dose reduction. INDICATION: Unresponsive. COMPARISON: Correlation is made with a noncontrast head CT performed earlier today. FINDINGS: Delayed post contrast images through the brain show no enhancing lesions. There is large area of encephalomalacia in the left middle cerebral artery territory. There is encephalomalacia in the left occipital lobe as well. No definite regions of acute hemorrhage are identified. CT angiographic portion of the exam demonstrates a three-vessel branching pattern to the aortic arch. The right common carotid artery is widely patent. The left common carotid artery is widely patent. There is mild plaquing at the carotid bifurcations bilaterally but the bifurcations are otherwise unremarkable. Distal right internal carotid artery at the carotid siphons does show a moderate amount of calcified plaque but appears to be widely patent. There is some calcified plaque in the left carotid siphon as well. Left internal carotid artery appears to be widely patent. The right and left middle cerebral artery, M1 and M2 segments appear to be patent. No large branch occlusion or thromboembolism is identified. Right and left anterior cerebral arteries appear to be patent. There is a high-grade stenosis of the proximal basilar artery but no complete occlusion is seen. Posterior cerebral arteries are patent. The vertebral arteries appear to be codominant but widely patent. IMPRESSION: 1. There is a high-grade stenosis of the proximal basilar artery but no occlusion is seen. There is no large branch occlusion. Bilateral middle cerebral arteries appear to be patent. Dictated on workstation # [id number] Dict: 01/08/21 1405 Trans: 01/08/21 1417 [id number] Interpreted by: ALPHONSE CARRION MD Electronically signed by: Family Conversation NAME: JAYSHREE GORDON [facility] REC#: [id number] PT STATUS: REG ER : 1960 PHYSICIAN: NATALIE JIMENEZ APRN ADMIT DATE: 01/08/21/ER Draft Date of Exam:01/08/21 CT HEAD WO-R/O STROKE PROCEDURE: CT head wo r/o stroke. TECHNIQUE: Multiple contiguous axial images were obtained through the brain without the use of intravenous contrast. Auto Exposure Controls were utilized during the CT exam to meet ALARA standards for radiation dose reduction. INDICATION: Seizure. History of stroke. COMPARISON: CTA head and neck 03/29/2020. FINDINGS: Large chronic infarct involving the entire left MCA distribution. There is also a chronic infarct involving the right occipital lobe. Chronic lacunar infarct in the right basal ganglia. No CT evidence of an acute territorial infarction. No intracranial hemorrhage, mass effect, hydrocephalus or extra-axial fluid collections. Osseous structures are intact. Paranasal sinuses and mastoids are clear. IMPRESSION: 1. No acute intracranial CT findings. No evidence for acute infarction or hemorrhage. 2. Chronic infarcts involving the entire left MCA distribution and right occipital lobe. Dictated on workstation # [id number] Dict: 01/08/21 1207 Trans: 01/08/21 1212 [facility] [id number] Interpreted by: OUMOU HAYES MD Electronically signed by: EKG shows atrial fibrillation with ventricular paced rate of 80 1527-I spoke with Dr. Bell consulting solution director for neurology at the [facility]. Recommends evaluating for infection but otherwise agrees with initiating antiepileptic therapy with Keppra. Sister is at the bedside. (NATALIE JIMENEZ APRN) Impression Primary Impression: Seizure Additional Impressions: Flaccid hemiplegia affecting right dominant side Expressive aphasia Disposition: ADMITTED INPATIENT Condition: Stable Admissions Decision to Admit Reason: Admit from ER (General) Decision to Admit/Date: Jan 08, 2021 Time/Decision to Admit Time: 15:27 (NATALIE JIMENEZ APRN) Departure-Patient Inst. Referrals: MANUEL STARK DO (PCP/Family) Primary Care Physician Scripts Levetiracetam (Levetiracetam) 500 Mg Tablet 500 MG PO BID, #60 TAB 0 Refills Prov: ILIA JAMES MD 01/10/21 ATTENDING PHYSICIAN NOTE: I was physically present as attending physician in the emergency department during the care of this patient, but I was not directly involved in the decision making or delivery of care for this patient. (TONY MCFARLANE MD) NATALIE JIMENEZ APRN Jan 08, 2021 11:09 TONY MCFARLANE MD Jan 12, 2021 20:27
[2021-01-08] MEDS ORDERED: LORazepam INJ 2 MG/ML (ATIVAN) VIAL IVP ONE (11:15)
[2021-01-08] MEDS ORDERED: LACTATED RINGERS 1,000 ML IV SCH (11:15)
[2021-01-08 11:28] LABS: BASOPHILS # (AUTO) 0.1 10^3/uL (0.0-0.1); BASOPHILS % (AUTO) 1 % (0-10); EOSINOPHILS # (AUTO) 0.4 10^3/uL (0.0-0.3); EOSINOPHILS % (AUTO) 3 % (0-10); HEMATOCRIT 51 % (40-54); HEMOGLOBIN 16.1 g/dL (13.3-17.7); LYMPHOCYTES # (AUTO) 3.5 10^3/uL (1.0-4.0); LYMPHOCYTES % (AUTO) 24 % (12-44); MEAN CORPUSCULAR HEMOGLOBIN 31 pg (25-34); MEAN CORPUSCULAR HGB CONC 32 g/dL (32-36); MEAN CORPUSCULAR VOLUME 99 fL (80-99); MEAN PLATELET VOLUME 10.7 fL (9.0-12.2); MONOCYTES # (AUTO) 1.7 10^3/uL (0.0-1.0); MONOCYTES % (AUTO) 12 % (0-12); NEUTROPHILS # (AUTO) 8.7 10^3/uL (1.8-7.8); NEUTROPHILS % (AUTO) 59 % (42-75); PLATELET COUNT 321 10^3/uL (130-400); WHITE BLOOD COUNT 14.7 10^3/uL (4.3-11.0)
[2021-01-08] MEDS ORDERED: LORazepam INJ 2 MG/ML (ATIVAN) VIAL IVP PRN ×2 (11:30)
[2021-01-08 11:38] LABS: ALBUMIN 4.5 GM/DL (3.2-4.5)
[2021-01-08 11:39] LABS: CHLORIDE 107 MMOL/L (98-107); POTASSIUM 4.1 MMOL/L (3.6-5.0); SODIUM 142 MMOL/L (135-145)
[2021-01-08 11:40] LABS: CALCIUM 9.6 MG/DL (8.5-10.1)
[2021-01-08 11:41] LABS: GLUCOSE 105 MG/DL (70-105); TOTAL PROTEIN 8.1 GM/DL (6.4-8.2)
[2021-01-08 11:42] LABS: CARBON DIOXIDE 12 MMOL/L (21-32); FIBRIN DEGRADATION PRODUCTS 0.57 UG/ML (0.00-0.49); INR 1.1 (0.8-1.4); PROTHROMBIN TIME PATIENT 14.6 SEC (12.2-14.7)
[2021-01-08 11:43] LABS: BILIRUBIN,TOTAL 0.3 MG/DL (0.1-1.0)
[2021-01-08 11:44] LABS: ALKALINE PHOSPHATASE 90 U/L (40-136)
[2021-01-08 11:45] LABS: CREATININE SERUM 1.29 MG/DL (0.60-1.30); GFR ESTIMATED 57
[2021-01-08 11:46] LABS: BUN/CREATININE RATIO 11
[2021-01-08 11:47] LABS: ALANINE AMINOTRANSFERASE 35 U/L (0-55)
[2021-01-08 11:48] LABS: CREATINE KINASE 110 U/L (30-200)
[2021-01-08 11:57] LABS: EOSINOPHILS % (MANUAL) 3 %; LYMPHOCYTES % (MANUAL) 30 %; MONOCYTES % (MANUAL) 13 %; NEUTROPHILS % (MANUAL) 54 %; RBC MORPH NORMAL
--- NOTE | 2021-01-08 12:13 | Diagnostic Imaging Report ---
PROCEDURE: CT head wo r/o stroke. TECHNIQUE: Multiple contiguous axial images were obtained through the brain without the use of intravenous contrast. Auto Exposure Controls were utilized during the CT exam to meet ALARA standards for radiation dose reduction. INDICATION: Seizure. History of stroke. COMPARISON: CTA head and neck 03/29/2020. FINDINGS: Large chronic infarct involving the entire left MCA distribution. There is also a chronic infarct involving the right occipital lobe. Chronic lacunar infarct in the right basal ganglia. No CT evidence of an acute territorial infarction. No intracranial hemorrhage, mass effect, hydrocephalus or extra-axial fluid collections. Osseous structures are intact. Paranasal sinuses and mastoids are clear. IMPRESSION: 1. No acute intracranial CT findings. No evidence for acute infarction or hemorrhage. 2. Chronic infarcts involving the entire left MCA distribution and right occipital lobe. Dictated by: Dictated on workstation # [id number]
[2021-01-08 12:29] LABS: BILIRUBIN,URINE NEGATIVE (NEGATIVE); CLARITY,URINE CLEAR; COLOR,URINE YELLOW; GLUCOSE, URINE (UA) NEGATIVE (NEGATIVE); KETONES,URINE NEGATIVE (NEGATIVE); LEUKOCYTE ESTERASE ,URINE NEGATIVE (NEGATIVE); NITRITE,URINE NEGATIVE (NEGATIVE); PH,URINE 5.5 (5-9); PROTEIN,URINE 1+ (NEGATIVE)
[2021-01-08 12:37] LABS: BACTERIA,URINE NEGATIVE /HPF; SQUAMOUS EPITHELIAL CELL,UR RARE /HPF; WBC,URINE 0-2 /HPF
--- NOTE | 2021-01-08 12:51 | Diagnostic Imaging Report ---
INDICATION: Seizure. TECHNIQUE: Single view chest at 12:44 PM. CORRELATION STUDY: 03/29/2020. FINDINGS: Left-sided AICD has been placed and there has been removal of the overlying loop recorder device. Heart size is mildly prominent but overall improved from prior. Vasculature is also slightly prominent but without overt failure and significantly improved from previous. Chronic appearing changes about the lung parenchyma are noted. No consolidating infiltrate. No significant effusion. IMPRESSION: 1. Placement of left-sided AICD. 2. Heart size and vasculature are mildly prominent but overall significantly improved from prior without evidence for overt failure at this time. Dictated by: Dictated on workstation # [id number]
[2021-01-08] MEDS ORDERED: CATHETER FLUSH 10 ML SYR IV PRN ×2 (13:00→17:30)
[2021-01-08] MEDS ORDERED: IOHEXOL 350 MG/ML 100 ML (OMNIPAQUE 350) VIAL IV ONE (13:00)
[2021-01-08] MEDS ORDERED: HOLD METFORMIN - RECEIVED CONTRAST 20 ML VIAL IV SCH (13:00)
--- NOTE | 2021-01-08 14:17 | Diagnostic Imaging Report ---
PROCEDURE: CT angiography of the head and CT angiography of the neck with and without contrast. TECHNIQUE: Contiguous noncontrast images were obtained from the skull base through the vertex. After intravenous contrast administration, helical CT angiography of the neck was performed. Source data was reformatted into 3D MIP projections. Delayed post contrast acquisition was also obtained. Auto Exposure Controls were utilized during the CT exam to meet ALARA standards for radiation dose reduction. INDICATION: Unresponsive. COMPARISON: Correlation is made with a noncontrast head CT performed earlier today. FINDINGS: Delayed post contrast images through the brain show no enhancing lesions. There is large area of encephalomalacia in the left middle cerebral artery territory. There is encephalomalacia in the left occipital lobe as well. No definite regions of acute hemorrhage are identified. CT angiographic portion of the exam demonstrates a three-vessel branching pattern to the aortic arch. The right common carotid artery is widely patent. The left common carotid artery is widely patent. There is mild plaquing at the carotid bifurcations bilaterally but the bifurcations are otherwise unremarkable. Distal right internal carotid artery at the carotid siphons does show a moderate amount of calcified plaque but appears to be widely patent. There is some calcified plaque in the left carotid siphon as well. Left internal carotid artery appears to be widely patent. The right and left middle cerebral artery, M1 and M2 segments appear to be patent. No large branch occlusion or thromboembolism is identified. Right and left anterior cerebral arteries appear to be patent. There is a high-grade stenosis of the proximal basilar artery but no complete occlusion is seen. Posterior cerebral arteries are patent. The vertebral arteries appear to be codominant but widely patent. IMPRESSION: 1. There is a high-grade stenosis of the proximal basilar artery but no occlusion is seen. There is no large branch occlusion. Bilateral middle cerebral arteries appear to be patent. Dictated by: Dictated on workstation # [id number]
[2021-01-08] MEDS ORDERED: CALCIUM GLUC. 10% 4.65 MEQ/10 ML VIAL ONE (14:56)
[2021-01-08 16:00] VITALS: BP 160/97
[2021-01-08] MEDS ORDERED: ONDANSETRON 4 MG/2 ML (SDV) Z0FRAN IV PRN (17:30)
[2021-01-08] MEDS ORDERED: LORazepam INJ 2 MG/ML (ATIVAN) VIAL IV PRN (17:30)
[2021-01-08] MEDS: LACTATED RINGERS 1,000 ML IV SCH (17:42)
[2021-01-08 19:46] VITALS: BP 141/96
[2021-01-08 23:07] VITALS: BP 153/79
[2021-01-09 03:35] VITALS: BP 120/61
[2021-01-09] MEDS: LACTATED RINGERS 1,000 ML IV SCH ×2 (04:34→14:57)
[2021-01-09 08:00] VITALS: BP 123/63
[2021-01-09] MEDS ORDERED: ALPR0.254 PO (10:51)
[2021-01-09] MEDS ORDERED: APIX5TAB PO (10:51)
[2021-01-09] MEDS ORDERED: ATOR40TA70 PO (10:51)
[2021-01-09] MEDS ORDERED: DICL20GE TP (10:51)
[2021-01-09] MEDS ORDERED: SENN-109 PO (10:51)
[2021-01-09] MEDS ORDERED: OXYC5TAB PO (10:51)
[2021-01-09] MEDS ORDERED: ASPI-999 PO (10:51)
[2021-01-09] MEDS ORDERED: LACT20SO2 PO (10:51)
[2021-01-09] MEDS ORDERED: GABA800T10 PO (10:51)
[2021-01-09] MEDS ORDERED: ZINC57OI6 TP (10:51)
[2021-01-09] MEDS ORDERED: NF-BISOP5 PO (10:51)
[2021-01-09] MEDS ORDERED: ACET-2267 PO (10:51)
[2021-01-09] MEDS ORDERED: SPIR25TA5 PO (10:51)
[2021-01-09] MEDS ORDERED: DULO60CA59 PO (10:51)
[2021-01-09] MEDS ORDERED: BISA10SU8 RC (10:51)
[2021-01-09 12:00] VITALS: BP 137/62
--- NOTE | 2021-01-09 12:34 | History & Physical ---
KAROL GEORGES 01/09/21 1234: HPI History of Present Illness: Juan Mcdonald is a 60 year old male in the hospital due to recent Seizures and lactic acidosis. He has a history of CVAs and dysphagia and was not able to be aroused enough to ask him questions today. Family members told a nurse he usually acknowledges and responds simply. Per review of charts, He lives in a nursing facility and has not been on any medications for seizures while at home. Date seen by provider: Jan 09, 2021 Time Seen by Provider: 07:30 Attending Physician Sierra James MD PCP Minh Perez MD Consult Date of Admission Jan 08, 2021 at 15:31 Home Medications Home Medications Reviewed patient Home Medication Reconciliation performed by pharmacy medication reconciliations radio/tv technician and/or nursing. Patients Allergies have been reviewed. Allergies Coded Allergies: No Known Drug Allergies (Unverified , 01/08/21) RXW-Feucvu-Elundt Hx Patient Social History 2nd Hand Smoke Exposure: No Recent Hopitalizations: No Alcohol Use?: No Have you traveled recently?: No Family Medical History Significant Family History: Heart Disease (Per chart review his mother had heart disease of unspecified type), Cancer (Father had Colon Cancer. A sibling had an ovarian neoplasm of unspecified type.), Cerebral Aneurysm (Father) Review of Systems ([facility]) Cardiovascular: other (Hypertension, Hypertriglyceridemia, AFIB with RVR) Genitourinary: other (Stage 3 CKD per chart review) Musculoskeletal: back pain (Per chart review) Psychiatric/Neurological: Anxiety (Per Chart review), Paresthesia (Right sided flacid hemiplegia per chart review), Seizure, Other (Dysphagia and CVA Per chart review) Physical Exam-([facility]) Physical Exam Vital Signs VS - Last 72 Hours, by Label 01/08/21 01/08/21 01/08/21 01/08/21 10:50 11:00 15:48 16:00 Temp 36.6 36.2 Pulse 80 80 80 Resp 18 18 20 B/P (MAP) 178/100 (126) 150/100 160/97 (118) Pulse Ox 98 95 98 98 O2 Delivery Nasal Cannula Nasal Cannula Nasal Cannula O2 Flow Rate 3.00 2.00 2.00 01/08/21 01/08/21 01/08/21 01/08/21 16:30 17:23 19:00 19:46 Temp 36.6 Pulse 80 80 80 Resp 20 B/P (MAP) 141/96 (111) Pulse Ox 96 O2 Delivery Nasal Cannula Nasal Cannula O2 Flow Rate 2.00 2.00 01/08/21 01/09/21 01/09/21 01/09/21 23:07 01:00 02:05 03:35 Temp 37.6 Pulse 80 80 Resp 20 B/P (MAP) 153/79 (103) Pulse Ox 100 97 O2 Delivery Nasal Cannula Nasal Cannula Nasal Cannula O2 Flow Rate 2.00 2.00 2.00 01/09/21 01/09/21 01/09/21 01/09/21 03:35 07:00 08:00 08:00 Temp 36.4 36.1 Pulse 80 80 80 Resp 18 20 B/P (MAP) 120/61 (80) 123/63 (83) Pulse Ox 97 98 99 O2 Delivery Nasal Cannula Room Air Room Air O2 Flow Rate 2.00 01/09/21 01/09/21 01/09/21 12:00 13:00 15:18 Temp 36.3 37.0 Pulse 80 80 79 Resp 18 20 B/P (MAP) 137/62 (87) 155/85 (108) Pulse Ox 99 99 O2 Delivery Room Air Room Air Capillary Refill : Less Than 3 Seconds General Appearance: no apparent distress HEENT: other (Patient wouldn't keep eyes open long enough to do proper eye exam) Neck: non-tender Respiratory: lungs clear, normal breath sounds, no respiratory distress, no accessory muscle use Cardiovascular: regular rate, rhythm, no murmur Gastrointestinal: normal bowel sounds, soft, no pulsatile mass Extremities: no pedal edema Neurologic/Psychiatric: No alert; aphasia, other (Hardly able to be awoken. wouldn't respond to questions or follow requests.) Assessment/Plan Assessment/Plan Assessment & Plan Seizures -Seizures are originally what brought patient to the Hospital. No seizures were reported overnight or today. -Patient is currently on lorazepam and levetiracetam as treatment. -Patient is not very alert or moving at this time. Family reports that patient can make simple responses at home and move with walker. -Would like to see patient return closer to his baseline before we discharge. Hypertension -Patient was hypertensive most of yesterday but has been within normal range today. Follow for now. Lactic Acidosis & Metabolic Acidosis -The lactic acidosis isn't severely high and there are currently no signs of an infection. Lactic acidosis can also be a cause of Metabolic Acidosis, so not concerned at this point. Believe at this time that the acidotic states are a b yproduct of the seizures he experiences yesterday. Leukocytosis -No fever associated with the leukocytosis. Could be elevated simply due to the seizures. Lung sputum culture results pending. Basilar Artery Stenosis -Have patient follow up with neurology to see if anything needs to be done. AFIB with RVR -Apixaban to protect against stroke as well as DVT Hypertriglyceridemia -Treating with apixaban. Anxiety -Currently taking duloxetine SIERRA JAMES MD 01/09/21 1633: Home Medications Allergies Coded Allergies: No Known Drug Allergies (Unverified , 01/08/21) Review of Systems ([facility]) Constitutional: other (unable to obtain) Assessment/Plan Assessment/Plan Admission Status: Observation Supervisory-Addendum Brief Verification & Attestation Participated in pt care: history, MDM, physical Personally performed: exam, history, MDM Care discussed with: Medical Student Procedures: n/a I personally saw patient and did my own history and exam and concur with the findings documented by the medical student. I directed the plan of care as documented by the medical student- except note that he is on atorvastatin for hyperlipidemia, not apixaban. I called his DPOA, but was unable to reach her, left a message. KAROL GEORGES Jan 09, 2021 12:34 SIERRA JAMES MD Jan 09, 2021 16:33
[2021-01-09] MEDS ORDERED: ALPRAZolam 0.25 MG (XANAX) TAB PO PRN (13:15)
[2021-01-09] MEDS ORDERED: ZINC OXIDE 40% (Butt Paste MAX/Desitin) 57 gm TP PRN (13:15)
[2021-01-09] MEDS ORDERED: BISACODYL 10 MG SUPP (DULCOLAX) RC PRN (13:15)
[2021-01-09] MEDS ORDERED: LACTULOSE SYRUP 10GM/15ML (ENULOSE) 30ML UDC PO PRN (13:15)
[2021-01-09] MEDS ORDERED: ACETAMINOPHEN 500 MG TAB (TYLENOL) PO PRN (13:15)
[2021-01-09 14:15] LABS: BASOPHILS % (AUTO) 0 % (0-10); EOSINOPHILS % (AUTO) 0 % (0-10); HEMATOCRIT 40 % (40-54); HEMOGLOBIN 13.5 g/dL (13.3-17.7); LYMPHOCYTES # (AUTO) 1.2 10^3/uL (1.0-4.0); LYMPHOCYTES % (AUTO) 8 % (12-44); MEAN CORPUSCULAR HEMOGLOBIN 31 pg (25-34); MEAN CORPUSCULAR HGB CONC 33 g/dL (32-36); MEAN CORPUSCULAR VOLUME 91 fL (80-99); MEAN PLATELET VOLUME 10.6 fL (9.0-12.2); MONOCYTES # (AUTO) 1.6 10^3/uL (0.0-1.0); MONOCYTES % (AUTO) 12 % (0-12); NEUTROPHILS % (AUTO) 80 % (42-75); PLATELET COUNT 243 10^3/uL (130-400); WHITE BLOOD COUNT 13.8 10^3/uL (4.3-11.0)
[2021-01-09 14:24] LABS: POTASSIUM 3.4 MMOL/L (3.6-5.0)
[2021-01-09 14:25] LABS: CALCIUM 9.6 MG/DL (8.5-10.1)
[2021-01-09 14:30] LABS: CREATININE SERUM 0.98 MG/DL (0.60-1.30)
[2021-01-09 15:18] VITALS: BP 155/85
[2021-01-09] MEDS: DICLOFENAC 1% GEL 100 GM (VOLTAREN) TUBE TP SCH ×2 (17:31→21:06)
[2021-01-09 19:16] VITALS: BP 168/89
[2021-01-09] MEDS: APIXABAN 5 MG (ELIQUIS) TABLET PO SCH (20:08)
[2021-01-09] MEDS: SENNA W/DOCUSATE (SENOKOT S) TABLET PO SCH (20:08)
[2021-01-09] MEDS: GABAPENTIN 400 MG (NEURONTIN) CAP PO SCH (20:08)
[2021-01-09] MEDS ORDERED: NON-FORMULARY MEDICATION 1 EA EA (Duloxetine HCl 60 MG) PO SCH (21:00)
[2021-01-09] MEDS ORDERED: DULoxetine 30 MG (CYMBALTA) CAP PO SCH (21:00)
[2021-01-09] MEDS ORDERED: NON-FORMULARY MEDICATION 1 EA EA (Gabapentin 800 MG) PO SCH (21:00)
[2021-01-09 23:42] VITALS: BP 164/92
[2021-01-10] MEDS: LACTATED RINGERS 1,000 ML IV SCH ×2 (00:08→11:03)
[2021-01-10 04:00] VITALS: BP 151/82
[2021-01-10 06:55] LABS: POTASSIUM 4.5 MMOL/L (3.6-5.0)
[2021-01-10 06:56] LABS: CALCIUM 9.1 MG/DL (8.5-10.1)
[2021-01-10 07:00] LABS: CREATININE SERUM 0.83 MG/DL (0.60-1.30)
[2021-01-10 08:03] LABS: HEMATOCRIT 44 % (40-54); HEMOGLOBIN 14.9 g/dL (13.3-17.7); MEAN CORPUSCULAR HEMOGLOBIN 31 pg (25-34); MEAN CORPUSCULAR HGB CONC 34 g/dL (32-36); MEAN CORPUSCULAR VOLUME 92 fL (80-99); MEAN PLATELET VOLUME 10.3 fL (9.0-12.2); PLATELET COUNT 237 10^3/uL (130-400); WHITE BLOOD COUNT 9.7 10^3/uL (4.3-11.0)
[2021-01-10] MEDS: SENNA W/DOCUSATE (SENOKOT S) TABLET PO SCH (08:49)
[2021-01-10 08:52] VITALS: BP 155/88
[2021-01-10] MEDS ORDERED: NON-FORMULARY MEDICATION 1 EA EA (Bisoprolol Fumarate 5 MG) PO SCH (09:00)
[2021-01-10] MEDS ORDERED: BISOPROLOL 5 MG TAB (ZEBETA) PO SCH (09:00)
[2021-01-10] MEDS ORDERED: ASPIRIN 81 MG CHEW (CHILDREN'S ASA) PO SCH (09:00)
[2021-01-10] MEDS: APIXABAN 5 MG (ELIQUIS) TABLET PO SCH (09:05)
[2021-01-10] MEDS: DICLOFENAC 1% GEL 100 GM (VOLTAREN) TUBE TP SCH ×2 (09:05→12:17)
[2021-01-10] MEDS: GABAPENTIN 400 MG (NEURONTIN) CAP PO SCH ×3 (09:05→12:21)
[2021-01-10] MEDS ORDERED: LEVE500T6 PO (10:42)
--- NOTE | 2021-01-10 10:47 | Discharge Summary ---
Discharge Summary Hospital Course Hospital Course Date of Admission: Jan 08, 2021 at 15:31 Admission Diagnosis : Family Physician/Provider: Minh Perez MD Date of Discharge: 01/10/21 Discharge Diagnosis: Seizure HTN Lactic acidosis- resolved Leukocytosis- resolved Basilar artery stenosis Atrial fibrillation Hospital Course: Pt was admitted with seizure activity which resolved in ER with lorazepam. CTA showed stenosis but not occlusion of basilar artery and old stroke. He was started on Keppra and had no further seizures inpatient. He had leukocytosis and lactic acidosis thought to be due to his seizure which resolved before d/c. He was originally postictal and somnonlent from seizure/lorazepam, but was alert and able to eat dinner that evening. He was discharged on Keppra. Resumed home anti-hypertensives, lipid lowering medications and a fib medications. Labs and Pending Lab Test: Laboratory Tests 01/09/21 14:00: White Blood Count 13.8H, Red Blood Count 4.43, Hemoglobin 13.5, Hematocrit 40, Mean Corpuscular Volume 91, Mean Corpuscular Hemoglobin 31, Mean Corpuscular Hemoglobin Concent 33, Red Cell Distribution Width 12.7, Platelet Count 243, Mean Platelet Volume 10.6, Immature Granulocyte % (Auto) 0, Neutrophils (%) (Auto) 80H, Lymphocytes (%) (Auto) 8L, Monocytes (%) (Auto) 12, Eosinophils (%) (Auto) 0, Basophils (%) (Auto) 0, Neutrophils # (Auto) 11.0H, Lymphocytes # (Auto) 1.2, Monocytes # (Auto) 1.6H, Eosinophils # (Auto) 0.0, Basophils # (Auto) 0.0, Immature Granulocyte # (Auto) 0.1, Sodium Level 139, Potassium Level 3.4L, Chloride Level 103, Carbon Dioxide Level 24, Anion Gap 12, Blood Urea Nitrogen 9, Creatinine 0.98, Estimat Glomerular Filtration Rate 78, BUN/Creatinine Ratio 9, Glucose Level 122H, Lactic Acid Level 3.55*H, Calcium Level 9.6, Triglycerides Level 83, Cholesterol Level 117, LDL Cholesterol Direct 70, VLDL Cholesterol 17, HDL Cholesterol 30L 01/09/21 18:15: Lactic Acid Level 2.66*H 01/09/21 19:56: Lactic Acid Level 2.45*H 01/10/21 06:26: Sodium Level 136, Potassium Level 4.5, Chloride Level 106, Carbon Dioxide Level 19L, Anion Gap 11, Blood Urea Nitrogen 10, Creatinine 0.83, Estimat Glomerular Filtration Rate 94, BUN/Creatinine Ratio 12, Glucose Level 103, Lactic Acid Level 1.10, Calcium Level 9.1 01/10/21 07:59: White Blood Count 9.7, Red Blood Count 4.79, Hemoglobin 14.9, Hematocrit 44, Mean Corpuscular Volume 92, Mean Corpuscular Hemoglobin 31, Mean Corpuscular Hemoglobin Concent 34, Red Cell Distribution Width 12.8, Platelet Count 237, Mean Platelet Volume 10.3 Microbiology 01/08/21 Blood Culture - Preliminary, Resulted No growth Home Meds Active Reported ALPRAZolam 0.25 Mg Tablet 0.25 Mg PO Q8H PRN Tylenol Extra Strength (Acetaminophen) 500 Mg Tablet 1,000 Mg PO TID PRN Boudreauxs (Zinc Oxide) 57 Gm Oint...g. 1 Applic TP TID PRN Lactulose 20 Gm/30 Ml Solution 15 Ml PO BID PRN Bisacodyl 10 Mg Supp.rect 10 Mg RC Q48H PRN Duloxetine HCl 60 Mg Capsule.dr 60 Mg PO HS Atorvastatin Calcium 40 Mg Tablet 40 Mg PO HS Oxycodone HCl 5 Mg Tablet 5 Mg PO 0700,1300,1800,2300 Bisoprolol Fumarate 5 Mg Tablet 5 Mg PO DAILY HOLD MED AND NOTIFY MD FOR SBP LESS THAN 100 OR DBP LESS THEN 60 Gabapentin 800 Mg Tablet 800 Mg PO TID Senna-S Tablet (Sennosides/Docusate Sodium) 1 Each Tablet 1 Each PO BID Voltaren Arthritis Pain (Diclofenac Sodium) 20 Gm Gel..gram. 1 Gm TP QID Aspirin 81 Mg Tab.chew 81 Mg PO DAILY Eliquis (Apixaban) 5 Mg Tablet 5 Mg PO BID Assessment/Pt DC Instructions Follow up via provider at nursing facility. Discharge Physical Examination Allergies: Coded Allergies: No Known Drug Allergies (Unverified , 01/08/21) General Appearance: No Apparent Distress Respiratory: Lungs Clear, Normal Breath Sounds Cardiovascular: Regular Rate, Rhythm, No Murmur Gastrointestinal: Normal Bowel Sounds, Non Tender, Soft Neurologic/Psychiatric: Alert, Other (making good eye contact, but does not speak, moving blanket around with his hands) ILIA JAMES MD Jan 10, 2021 10:47
[2021-01-10 11:56] VITALS: BP 148/95
[2021-01-10 14:22] VITALS: BP 148/95
== END 2021-01-10 14:22 ==
LOC: EDUNIT# 10:50 → ER 10:51 → 4TH 15:31
PROVIDERS: ADMIT Family Medicine; ATTEND Family Medicine
DX: R56.9 Unspecified convulsions (principal); I10 Essential (primary) hypertension; I48.91 Unspecified atrial fibrillation; I65.1 Occlusion and stenosis of basilar artery; G89.29 Other chronic pain; M54.9 Dorsalgia, unspecified; D72.829 Elevated white blood cell count, unspecified; E87.2 Acidosis; E78.1 Pure hyperglyceridemia; F41.9 Anxiety disorder, unspecified; Z79.82 Long term (current) use of aspirin; Z79.01 Long term (current) use of anticoagulants; Z79.899 Other long term (current) drug therapy
CPT/HCPCS: 36410; 51702; 70450; 70496; 70498; 71045; 76937; 80048 ×2; 80053; 80061; 81000; 82550; 82800; 83605 ×3; 84484; 85007; 85025; 85027 ×2; 85379; 85610; 85730; 87040; 93005; 93041; 96361; 96365; 96375; 96376; 99284; C1751; 36415; G0378

== ENCOUNTER 2021-04-03 13:35 | Emergency (ER) | payer MEDICAID ==
[~2021-04-03 13:35] MED LIST changes: +ACET-2267 PO; +ALPR0.254 PO; +BISA10SU8 RC; +DICL20GE TP; +DULO60CA59 PO; +GABA800T10 PO; +LEVE500T6 PO; +OXYC5TAB PO; +SENN-109 PO; +ZINC57OI6 TP
[2021-04-03] MEDS ORDERED: NITROGLYCERIN 0.4 MG SL TABS BTL 25'S SL PRN (13:45)
[2021-04-03 14:07] LABS: BASOPHILS % (AUTO) 1 % (0-10); EOSINOPHILS # (AUTO) 0.3 10^3/uL (0.0-0.3); EOSINOPHILS % (AUTO) 4 % (0-10); HEMATOCRIT 41 % (40-54); HEMOGLOBIN 13.6 g/dL (13.3-17.7); LYMPHOCYTES # (AUTO) 1.6 10^3/uL (1.0-4.0); LYMPHOCYTES % (AUTO) 23 % (12-44); MEAN CORPUSCULAR HEMOGLOBIN 31 pg (25-34); MEAN CORPUSCULAR HGB CONC 33 g/dL (32-36); MEAN CORPUSCULAR VOLUME 93 fL (80-99); MEAN PLATELET VOLUME 9.8 fL (9.0-12.2); MONOCYTES # (AUTO) 0.9 10^3/uL (0.0-1.0); MONOCYTES % (AUTO) 13 % (0-12); NEUTROPHILS # (AUTO) 4.1 10^3/uL (1.8-7.8); NEUTROPHILS % (AUTO) 59 % (42-75); PLATELET COUNT 220 10^3/uL (130-400)
[2021-04-03 14:15] LABS: BILIRUBIN,URINE NEGATIVE (NEGATIVE); CLARITY,URINE CLEAR; COLOR,URINE YELLOW; GLUCOSE, URINE (UA) NEGATIVE (NEGATIVE); KETONES,URINE NEGATIVE (NEGATIVE); LEUKOCYTE ESTERASE ,URINE NEGATIVE (NEGATIVE); NITRITE,URINE NEGATIVE (NEGATIVE); PROTEIN,URINE NEGATIVE (NEGATIVE)
[2021-04-03 14:21] LABS: BACTERIA,URINE NEGATIVE /HPF; SQUAMOUS EPITHELIAL CELL,UR RARE /HPF
[2021-04-03 14:22] LABS: ALBUMIN 3.7 GM/DL (3.2-4.5)
[2021-04-03 14:23] LABS: INR 1.1 (0.8-1.4); POTASSIUM 4.2 MMOL/L (3.6-5.0); PROTHROMBIN TIME PATIENT 14.5 SEC (12.2-14.7)
[2021-04-03 14:24] LABS: CALCIUM 8.9 MG/DL (8.5-10.1)
--- NOTE | 2021-04-03 14:24 | Diagnostic Imaging Report ---
EXAMINATION: Chest 1 view HISTORY: Chest pain COMPARISON: 01/08/2021. FINDINGS: Heart size and pulmonary vasculature are normal. The lungs are clear without consolidation, pleural effusion, or pneumothorax. The osseous structures are intact. Left-sided cardiac device is unchanged. IMPRESSION: 1. No acute radiographic abnormality in the chest. Dictated by: Dictated on workstation # [id number]
[2021-04-03 14:25] LABS: TOTAL PROTEIN 6.8 GM/DL (6.4-8.2)
[2021-04-03 14:27] LABS: BILIRUBIN,TOTAL 0.3 MG/DL (0.1-1.0)
[2021-04-03 14:29] LABS: CREATININE SERUM 1.08 MG/DL (0.60-1.30)
--- NOTE | 2021-04-03 14:29 | ED Chest Pain ---
General Chief Complaint: Chest Pain Stated Complaint: CP Nursing Triage Note: TO ED PER EMS FROM [facility] WAS EATING LUNCH WHEN CHEST PAIN STARTED. PATIENT AT [facility] PATIENT AT [facility] FOR REHAB FOR STROKE IS FLACCID ON THE R SIDE ARM WALKS WITH A WALKER. SPEECH SPEECH IS SLOW. Source: patient, old records, caregiver Exam Limitations: no limitations History of Present Illness Date Seen by Provider: Apr 03, 2021 Time Seen by Provider: 13:38 Initial Comments This 60-year-old gentleman presents to the emergency room via EMS from [facility] with complaints of chest pain since about 13: 00. He identified pain as being in the left chest for EMS but the right chest for me. On exam he is also noted to be tender in the epigastrium and throughout the right abdomen. He does not know if he retains his gallbladder or appendix. He denies any vomiting or diarrhea. He has significant deficits in communicating due to prior stroke. Staff at assisted living stated that he was less talkative than normal today. Pain started when he was at the lunch table eating. He has expressive aphasia and significant right-sided weakness from his strokes. His right arm is flaccid. He is able to walk with a walker with right toe drop. Allergies and Home Medications Allergies Coded Allergies: No Known Drug Allergies (Unverified , 01/08/21) Patient Home Medication List Home Medication List Reviewed: Yes ALPRAZolam (ALPRAZolam) 0.25 Mg Tablet, 0.25 MG PO Q8H PRN for ANXIETY, (Reported) Entered as Reported by: STANLEY SIERRA on 01/09/21 1051 Acetaminophen (Tylenol Extra Strength) 500 Mg Tablet, 1,000 MG PO TID PRN for PAIN-MILD (1-4), (Reported) Entered as Reported by: STANLEY SIERRA on 01/09/21 1051 Apixaban (Eliquis) 5 Mg Tablet, 5 MG PO BID, (Reported) Entered as Reported by: STANLEY SIERRA on 01/09/21 1051 Aspirin (Aspirin) 81 Mg Tab.chew, 81 MG PO DAILY, (Reported) Entered as Reported by: STANLEY SIERRA on 01/09/21 1051 Atorvastatin Calcium (Atorvastatin Calcium) 40 Mg Tablet, 40 MG PO HS, (Reported) Entered as Reported by: STANLEY SIERRA on 01/09/21 1051 Bisacodyl (Bisacodyl) 10 Mg Supp.rect, 10 MG RC Q48H PRN for CONSTIPATION-3RD LINE, (Reported) Entered as Reported by: STANLEY SIERRA on 01/09/21 1051 Bisoprolol Fumarate (Bisoprolol Fumarate) 5 Mg Tablet, 5 MG PO DAILY, (Reported) Entered as Reported by: STANLEY SIERRA on 01/09/21 1051 Diclofenac Sodium (Voltaren Arthritis Pain) 20 Gm Gel..gram., 1 GM TP QID, (Reported) Entered as Reported by: STANLEY SIERRA on 01/09/21 1051 Duloxetine HCl (Duloxetine HCl) 60 Mg Capsule.dr, 60 MG PO HS, (Reported) Entered as Reported by: STANLEY SIERRA on 01/09/21 1051 Gabapentin (Gabapentin) 800 Mg Tablet, 800 MG PO TID, (Reported) Entered as Reported by: STANLEY SIERRA on 01/09/21 1051 Lactulose (Lactulose) 20 Gm/30 Ml Solution, 15 ML PO BID PRN for CONSTIPATION- 3RD LINE, (Reported) Entered as Reported by: STANLEY SIERRA on 01/09/21 1051 Levetiracetam (Levetiracetam) 500 Mg Tablet, 500 MG PO BID Prescribed by: ILIA JAMES on 01/10/21 1042 Oxycodone HCl (Oxycodone HCl) 5 Mg Tablet, 5 MG PO 0700,1300,1800,2300, (Reported) Entered as Reported by: STANLEY SIERRA on 01/09/21 1051 Pantoprazole Sodium (Protonix) 40 Mg Tablet.dr, 40 MG PO DAILY Prescribed by: TONY MACK on 04/03/21 1809 Phenazopyridine HCl (Pyridium) 200 Mg Tablet, 1 TAB PO TID PRN for PAIN-MODERATE (5-7) Prescribed by: TONY MACK on 04/03/21 175 Sennosides/Docusate Sodium (Senna-S Tablet) 1 Each Tablet, 1 EACH PO BID, (Reported) Entered as Reported by: STANLEY SIERRA on 01/09/21 1051 Tamsulosin HCl (Flomax) 0.4 Mg Cap, 0.4 MG PO DAILY Prescribed by: TONY MACK on 04/03/21 1757 Zinc Oxide (Boudreauxs) 57 Gm Oint...g., 1 APPLIC TP TID PRN for SKIN CHANGES, (Reported) Entered as Reported by: STANLEY SIERRA on 01/09/21 1051 Review of Systems Review of Systems Constitutional: no symptoms reported EENTM: No Symptoms Reported Respiratory: No Symptoms Reported Cardiovascular: See HPI Gastrointestinal: See HPI Genitourinary: No Symptoms Reported Musculoskeletal: no symptoms reported Skin: no symptoms reported Psychiatric/Neurological: See HPI Endocrine: No Symptoms Reported Hematologic/Lymphatic: No Symptoms Reported Past Uziadmj-Tgikfb-Qlevks Hx Patient Social History Tobacco Use?: No Use of E-Cig and/or Vaping dev: No Substance use?: No Alcohol Use?: No Pt feels they are or have been: No Immunizations Up To Date First/Initial COVID19 Vaccinat: YES Second COVID19 Vaccination Miki: YES COVID19 Vaccine Direct Care Staffer: UNKNOWN BY [facility]. Seasonal Allergies Seasonal Allergies: No Past Medical History Surgeries: Yes (finger, achillies,) Orthopedic Respiratory: No Cardiac: Yes Atrial Fibrillation, Hypertension Neurological: Yes Stroke Genitourinary: No Gastrointestinal: No Musculoskeletal: Yes Chronic Back Pain Endocrine: No HEENT: No Cancer: No Psychosocial: No Integumentary: No Blood Disorders: No Adverse Reaction/Blood Tranf: No Family Medical History Heart Disease, Cancer, Cerebral Aneurysm Physical Exam Vital Signs Vital Signs - First Documented 04/03/21 04/03/21 13:35 14:30 Temp 36.5 Pulse 80 Resp 18 B/P (MAP) 171/98 (122) Pulse Ox 98 O2 Delivery Room Air Capillary Refill : Less Than 3 Seconds Height, Weight, BMI Height: 5'10.00" Weight: 258lbs. 15.0oz. 117.265138oc; 31.50 BMI Method:Stated General Appearance: WD/WN, Mild Distress HEENT: PERRL/EOMI, Normal ENT Inspection Neck: Normal Inspection Respiratory: Lungs Clear, Normal Breath Sounds, No Accessory Muscle Use, No Respiratory Distress, Other (Tenderness of the right chest) Cardiovascular: Regular Rate, Rhythm, No Murmur, Other (Mild to moderate pitting lower extremity edema) Gastrointestinal: Normal Bowel Sounds, Soft; No Distended; Tenderness (Epigastrium and throughout the right abdomen) Extremity: Non Tender, Swelling (Mild to moderate pitting edema of the lower extremities bilaterally and mild edema of the right upper extremity) Neurologic/Psychiatric: Alert, Oriented x3, No Motor/Sensory Deficits, Normal Mood/Affect, 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 II-XII Norm as Tested Skin: Normal Color, Warm/Dry Progress/Results/Core Measures Results/Orders Lab Results Laboratory Tests Test 04/03/21 14:00 04/03/21 14:08 04/03/21 16:33 Range/Units White Blood Count 7.0 4.3-11.0 10^3/uL Red Blood Count 4.40 4.30-5.52 10^6/uL Hemoglobin 13.6 13.3-17.7 g/dL Hematocrit 41 40-54 % Mean Corpuscular Volume 93 80-99 fL Mean Corpuscular Hemoglobin 31 25-34 pg Mean Corpuscular Hemoglobin Concent 33 32-36 g/dL Red Cell Distribution Width 13.4 10.0-14.5 % Platelet Count 220 130-400 10^3/uL Mean Platelet Volume 9.8 9.0-12.2 fL Immature Granulocyte % (Auto) 0 % Neutrophils (%) (Auto) 59 42-75 % Lymphocytes (%) (Auto) 23 12-44 % Monocytes (%) (Auto) 13 H 0-12 % Eosinophils (%) (Auto) 4 0-10 % Basophils (%) (Auto) 1 0-10 % Neutrophils # (Auto) 4.1 1.8-7.8 10^3/uL Lymphocytes # (Auto) 1.6 1.0-4.0 10^3/uL Monocytes # (Auto) 0.9 0.0-1.0 10^3/uL Eosinophils # (Auto) 0.3 0.0-0.3 10^3/uL Basophils # (Auto) 0.0 0.0-0.1 10^3/uL Immature Granulocyte # (Auto) 0.0 0.0-0.1 10^3/uL Prothrombin Time 14.5 12.2-14.7 SEC INR Comment 1.1 0.8-1.4 Activated Partial Thromboplast Time 40 H 24-35 SEC D-Dimer 0.53 H 0.00-0.49 UG/ML Sodium Level 142 135-145 MMOL/L Potassium Level 4.2 3.6-5.0 MMOL/L Chloride Level 109 H 98-107 MMOL/L Carbon Dioxide Level 24 21-32 MMOL/L Anion Gap 9 5-14 MMOL/L Blood Urea Nitrogen 13 7-18 MG/DL Creatinine 1.08 0.60-1.30 MG/DL Estimat Glomerular Filtration Rate 70 BUN/Creatinine Ratio 12 Glucose Level 116 H 70-105 MG/DL Calcium Level 8.9 8.5-10.1 MG/DL Corrected Calcium 9.1 8.5-10.1 MG/DL Magnesium Level 2.1 1.6-2.4 MG/DL Total Bilirubin 0.3 0.1-1.0 MG/DL Aspartate Amino Transf (AST/SGOT) 27 5-34 U/L Alanine Aminotransferase (ALT/SGPT) 24 0-55 U/L Alkaline Phosphatase 76 40-136 U/L Myoglobin 56.4 10.0-92.0 NG/ML Troponin I < 0.028 < 0.028 <0.028 NG/ML B-Type Natriuretic Peptide 368.0 H <100.0 PG/ML Total Protein 6.8 6.4-8.2 GM/DL Albumin 3.7 3.2-4.5 GM/DL Lipase 51 8-78 U/L Urine Color YELLOW Urine Clarity CLEAR Urine pH 7.0 5-9 Urine Specific [place] 1.010 L 1.016-1.022 Urine Protein NEGATIVE NEGATIVE Urine Glucose (UA) NEGATIVE NEGATIVE Urine Ketones NEGATIVE NEGATIVE Urine Nitrite NEGATIVE NEGATIVE Urine Bilirubin NEGATIVE NEGATIVE Urine Urobilinogen 0.2 < = 1.0 MG/DL Urine Leukocyte Esterase NEGATIVE NEGATIVE Urine RBC (Auto) NEGATIVE NEGATIVE Urine RBC NONE /HPF Urine WBC NONE /HPF Urine Squamous Epithelial Cells RARE /HPF Urine Crystals NONE /LPF Urine Bacteria NEGATIVE /HPF Urine Casts NONE /LPF Urine Mucus NEGATIVE /LPF Urine Culture Indicated NO My Orders Orders - TONY MCFARLANE MD Cbc With Automated Diff (04/03/21 13:42) Magnesium (04/03/21 13:42) Chest 1 View, Ap/Pa Only (04/03/21 13:42) Ekg Tracing (04/03/21 13:42) Comprehensive Metabolic Panel (04/03/21 13:42) Myoglobin Serum (04/03/21 13:42) Protime With Inr (04/03/21 13:42) Partial Thromboplastin Time (04/03/21 13:42) O2 (04/03/21 13:42) Monitor-Rhythm Ecg Trace Only (04/03/21 13:42) Lipid Panel (04/04/21 06:00) Ed Iv/Invasive Line Start (04/03/21 13:42) Lipase (04/03/21 13:42) BNP (04/03/21 13:42) Troponin I (04/03/21 13:42) Nitroglycerin 0.4 Mg Btl 25's (Nitrostat (04/03/21 13:45) Ua Culture If Indicated (04/03/21 13:43) Fibrin Degradation Products (04/03/21 14:23) Ct Maryan Chest/Noang Abd-Pelv W (04/03/21 14:39) Iohexol Injection (Omnipaque 350 Mg/Ml 1 (04/03/21 14:45) Received Contrast (Hold Metformin- Contr (04/03/21 14:45) Ns (Ivpb) (Sodium Chloride 0.9% Ivpb Bag (04/03/21 14:45) Bladder Scan (04/03/21 15:45) Phenazopyridine Tablet (Pyridium Tablet) (04/03/21 16:30) Troponin I (04/03/21 17:00) Fentanyl Inj (Sublimaze Injection) (04/03/21 17:30) Oxycodone/Apap 5/325mg Tablet (Percocet (04/03/21 17:30) Gabapentin Capsule/Tablet (Neurontin Cap (04/03/21 17:30) Fentanyl Inj (Sublimaze Injection) (04/03/21 17:28) Medications Given in ED Current Medications Medications Dose Ordered Sig/Mauro Route Start Time Stop Time Status Last Admin Dose Admin Fentanyl Citrate 50 mcg ONCE ONCE IVP 04/03/21 17:30 04/03/21 17:31 DC 04/03/21 17:30 50 MCG Gabapentin 600 mg ONCE ONCE PO 04/03/21 17:30 04/03/21 17:31 DC 04/03/21 17:33 600 MG Iohexol 100 ml ONCE ONCE IV 04/03/21 14:45 04/03/21 14:46 DC 04/03/21 15:04 100 ML Oxycodone/ Acetaminophen 1 tab ONCE ONCE PO 04/03/21 17:30 04/03/21 17:31 DC 04/03/21 17:33 1 TAB Phenazopyridine HCl 200 mg ONCE ONCE PO 04/03/21 16:30 04/03/21 16:31 DC 04/03/21 17:08 200 MG Sodium Chloride 100 ml ONCE ONCE IV 04/03/21 14:45 04/03/21 14:46 DC 04/03/21 15:04 80 ML Vital Signs/I&O 04/03/21 04/03/21 13:35 14:30 Temp 36.5 Pulse 80 80 Resp 18 18 B/P (MAP) 171/98 (122) 159/95 Pulse Ox 98 94 O2 Delivery Room Air Blood Pressure Mean: 122 Progress Progress Note #1: Time: 14:30 Progress Note Chest pain has resolved. Aspirin was given by EMS in route. Nitro was not given as the chest pain resolved rather promptly after arrival. Patient was reexamined and still found to have right-sided abdominal tenderness. Progress Note #2: Time: 16:24 Progress Note Patient is not experiencing any significant pain at this time. CT angiogram of the chest with CT of the abdomen and pelvis was unremarkable in regard to cause for his pain with the exception of a thickened bladder wall. This could be related to cystitis or outlet obstruction. We did have him urinate again and he voided more than 300 mL. Bladder scan afterward was approximately 250 mL. Cystitis related to outlet obstruction is a possibility. We are treating him with Pyridium and will prescribe Flomax and recommend outpatient follow-up. In the meantime, we will complete a 4-hour troponin at 17:00. Progress Note #3: Time: 18:15 Progress Note Patient's repeat troponin was negative. Patient had a burst of pain throughout the right side including his arm and leg. He had a belligerent emotional outburst with this as well. It was noted in the chart that he takes medications throughout the day for pain including Percocet and gabapentin. He was given an IV dose of fentanyl followed by Percocet and gabapentin. This resolved his pain and he was then in a positive mood. He was feeling well at the time of discharge and thankful to be going home. Initial ECG Impression Date: Apr 03, 2021 Initial ECG Impression Time: 13:42 Initial ECG Rate: 80 Initial ECG Rhythm: A Fib/Flutter Comment Paced rhythm with underlying A. fib/flutter. No overt ischemic changes. No significant change from prior. Diagnostic Imaging Diagonstic Imaging: Xray Plain Films/CT/US/NM/MRI: chest Comments Chest x-ray viewed by me and report reviewed. See report below: NAME: JAYSHREE GORDON [facility] REC#: [id number] PT STATUS: REG ER : 1960 PHYSICIAN: TONY MCFARLANE MD ADMIT DATE: 04/03/21/ER Draft Date of Exam:04/03/21 CHEST 1 VIEW, AP/PA ONLY EXAMINATION: Chest 1 view HISTORY: Chest pain COMPARISON: 01/08/2021. FINDINGS: Heart size and pulmonary vasculature are normal. The lungs are clear without consolidation, pleural effusion, or pneumothorax. The osseous structures are intact. Left-sided cardiac device is unchanged. IMPRESSION: 1. No acute radiographic abnormality in the chest. Dictated on workstation # [id number] Dict: 04/03/21 1422 Trans: 04/03/21 1424 [id number] [id number] Interpreted by: KORINA MEDEIROS DO Diagonstic Imaging: CT Plain Films/CT/US/NM/MRI: chest, abdomen, pelvis Comments CT angiogram chest with CT of abdomen and pelvis was reviewed by me and report reviewed. See report below: NAME: JAYSHREE GORDON [facility] REC#: [id number] PT STATUS: REG ER : 1960 PHYSICIAN: TONY MCFARLANE MD ADMIT DATE: 04/03/21/ER Signed Date of Exam:04/03/21 CT MARYAN CHEST/NOANG ABD-PELV W INDICATION: Chest pain, right sided abdominal pain CTA chest, abdomen and pelvis Thin axial sections through the chest, abdomen and pelvis are obtained following intravenous contrast bolus. Multiplanar MIP images were reconstructed and reviewed. All CT scans use one or more of the following dose optimizing techniques: automated exposure control, MA and/or KvP adjustment based on patient size and exam type or iterative reconstruction. FINDINGS: CT ANGIOGRAM CHEST: Evaluation of the pulmonary arterial system is without evidence of thromboembolism. No filling defects are seen within central, lobar, or segmental branches. Aorta is normal in caliber. No dissection is seen. There is no pericardial or pleural fluid identified. Cardiac pacemaker is in place. Lungs are clear. No infiltrates are seen. There is no nodule or mass. There is subsegmental atelectasis in the right middle lobe and lingula. IMPRESSION: No evidence of pulmonary embolism or acute aortic disease. CT ABDOMEN AND PELVIS: Liver and gallbladder are unremarkable. There is no biliary ductal dilatation. Pancreas and spleen are unremarkable. No adrenal mass is detected. Kidneys are unremarkable. Aorta is nonaneurysmal. Bowel loops are normal in caliber. There is no obstruction. Appendix is visualized in the right lower quadrant and unremarkable. No free fluid or fluid collection is seen. Bladder is diffusely thick walled. Prostate is unremarkable. No abdominal or pelvic lymphadenopathy is seen. Bony structures are nonacute. IMPRESSION: 1. No acute feature in the abdomen or pelvis is identified. 2. Generalized bladder wall thickening. While this could in part be owing to incomplete distention, possibility of cystitis or chronic bladder outlet obstruction cannot be entirely excluded. Dictated by: Dictated on workstation # [id number] Dict: 04/03/21 1519 Trans: 04/03/21 1549 [id number] Interpreted by: ALPHONSE CARRION MD Electronically signed by: ALPHONSE CARRION MD 04/03/21 1549 Departure Impression Primary Impression: Urinary retention Additional Impressions: Right-sided abdominal pain of unknown cause Atypical chest pain Epigastric pain Cystitis Disposition: 01 HOME, SELF-CARE Condition: Improved Departure-Patient Inst. Decision time for Depature: 17:55 Referrals: KATELYN ALEJANDRE (PCP) Primary Care Physician [facility] (Family) Primary Care Physician Patient Instructions: Chest Pain, Adult ED Add. Discharge Instructions: Drink plenty of clear liquids for the next 24 hours to flush out the IV contrast you received for your CT scan. Start Flomax as prescribed which should help with urinary flow and bladder emptying. Use Pyridium as prescribed for bladder pain. Please be advised this medication may turn your urine and orange-wilman or reddish color. Trial Protonix for 2 weeks for upper stomach pain and tenderness. Follow-up with your primary care provider as soon as possible for further evaluation. Please also follow-up with your collections analyst as well. Call with questions or concerns. Return to the ER if you have any worsening of condition. All discharge instructions reviewed with patient and/or family. Voiced understanding. Scripts Pantoprazole Sodium (Protonix) 40 Mg Tablet.dr 40 MG PO DAILY, #14 TAB Prov: TONY MCFARLANE MD 04/03/21 Phenazopyridine HCl (Pyridium) 200 Mg Tablet 1 TAB PO TID PRN for PAIN-MODERATE (5-7), #20 TAB Prov: TONY MCFARLANE MD 04/03/21 Tamsulosin HCl (Flomax) 0.4 Mg Cap 0.4 MG PO DAILY, #30 CAP Prov: TONY MCFARLANE MD 04/03/21 Copy Copies To 1: ALVARO PHILLIPS MD, JOSHUA T MD Apr 03, 2021 14:29
[2021-04-03 14:32] LABS: MAGNESIUM 2.1 MG/DL (1.6-2.4)
[2021-04-03] MEDS ORDERED: IOHEXOL 350 MG/ML 100 ML (OMNIPAQUE 350) VIAL IV ONE (14:45)
[2021-04-03] MEDS ORDERED: HOLD METFORMIN - RECEIVED CONTRAST 20 ML VIAL IV SCH (14:45)
[2021-04-03] MEDS ORDERED: NS 100 ML (IVPB) BAG IV ONE (14:45)
--- NOTE | 2021-04-03 15:31 | Diagnostic Imaging Report ---
INDICATION: Chest pain, right sided abdominal pain CTA chest, abdomen and pelvis Thin axial sections through the chest, abdomen and pelvis are obtained following intravenous contrast bolus. Multiplanar MIP images were reconstructed and reviewed. All CT scans use one or more of the following dose optimizing techniques: automated exposure control, MA and/or KvP adjustment based on patient size and exam type or iterative reconstruction. FINDINGS: CT ANGIOGRAM CHEST: Evaluation of the pulmonary arterial system is without evidence of thromboembolism. No filling defects are seen within central, lobar, or segmental branches. Aorta is normal in caliber. No dissection is seen. There is no pericardial or pleural fluid identified. Cardiac pacemaker is in place. Lungs are clear. No infiltrates are seen. There is no nodule or mass. There is subsegmental atelectasis in the right middle lobe and lingula. IMPRESSION: No evidence of pulmonary embolism or acute aortic disease. CT ABDOMEN AND PELVIS: Liver and gallbladder are unremarkable. There is no biliary ductal dilatation. Pancreas and spleen are unremarkable. No adrenal mass is detected. Kidneys are unremarkable. Aorta is nonaneurysmal. Bowel loops are normal in caliber. There is no obstruction. Appendix is visualized in the right lower quadrant and unremarkable. No free fluid or fluid collection is seen. Bladder is diffusely thick walled. Prostate is unremarkable. No abdominal or pelvic lymphadenopathy is seen. Bony structures are nonacute. IMPRESSION: 1. No acute feature in the abdomen or pelvis is identified. 2. Generalized bladder wall thickening. While this could in part be owing to incomplete distention, possibility of cystitis or chronic bladder outlet obstruction cannot be entirely excluded. Dictated by: Dictated on workstation # [id number]
[2021-04-03] MEDS ORDERED: PHENAZOPYRIDINE 100 MG (PYRIDIUM) TABLET PO ONE (16:30)
[2021-04-03] MEDS ORDERED: fentaNYL INJ 100 MCG/2 ML AMP ONE (17:28)
[2021-04-03] MEDS ORDERED: GABAPENTIN 300 MG (NEURONTIN) CAP PO ONE (17:30)
[2021-04-03] MEDS ORDERED: fentaNYL INJ 100 MCG/2 ML AMP IVP ONE (17:30)
[2021-04-03] MEDS ORDERED: oxyCODONE/APAP 5/325MG (PERCOCET 5) TABLET PO ONE (17:30)
[2021-04-03] MEDS ORDERED: TMSL.4C PO (17:57)
[2021-04-03] MEDS ORDERED: PHEN-640 PO (17:57)
[2021-04-03] MEDS ORDERED: PANT40TA2 PO (18:09)
[2021-04-03 18:35] VITALS: BP 161/96
== END 2021-04-03 18:35 | disposition home or self-care (01) ==
LOC: EDUNIT# 13:35 → ER 13:38
DX: R33.9 Retention of urine, unspecified (principal); R10.13 Epigastric pain; R07.89 Other chest pain; N30.90 Cystitis, unspecified without hematuria; I10 Essential (primary) hypertension; G89.29 Other chronic pain; M54.9 Dorsalgia, unspecified; I48.91 Unspecified atrial fibrillation; Z86.73 Personal history of transient ischemic attack (TIA), and cerebral infarction without residual deficits; Z79.01 Long term (current) use of anticoagulants; Z79.82 Long term (current) use of aspirin; Z79.891 Long term (current) use of opiate analgesic; Z79.899 Other long term (current) drug therapy
CPT/HCPCS: 36415; 71045; 71275; 74177; 80053; 81000; 83690; 83735; 83874; 83880; 84484; 85025; 85379; 85610; 85730; 93005; 93041

== ENCOUNTER 2021-05-22 15:27 | Outpatient (RCR) | payer MEDICAID ==
[~2021-05-22 15:27] MED LIST changes: +CYCL10TA25 PO; -CYCL10TA9 PO; +PANT40TA2 PO; +PHEN-640 PO; +TMSL.4C PO
== END 2021-05-23 | disposition home or self-care (01) ==
PROVIDERS: ATTEND Nurse Practitioner Community Health
DX: I69.351 Hemiplegia and hemiparesis following cerebral infarction affecting right dominant side (principal); I10 Essential (primary) hypertension; Z95.0 Presence of cardiac pacemaker

== ENCOUNTER → 2021-06-23 | Outpatient (RCR) | payer MEDICAID | END | disposition home or self-care (01) | PROVIDERS: ATTEND Nurse Practitioner Community Health | DX: I69.351 Hemiplegia and hemiparesis following cerebral infarction affecting right dominant side (principal) ==

== ENCOUNTER 2021-07-17 13:40 | Outpatient (RCR) | payer MEDICAID | END 2021-07-21 | disposition home or self-care (01) | PROVIDERS: ATTEND Nurse Practitioner Community Health | DX: I69.351 Hemiplegia and hemiparesis following cerebral infarction affecting right dominant side (principal) ==

== ENCOUNTER 2021-07-24 16:18 | Outpatient (RCR) | payer MEDICAID | END 2021-07-24 17:00 | disposition home or self-care (01) | PROVIDERS: ATTEND Nurse Practitioner Community Health | DX: I69.351 Hemiplegia and hemiparesis following cerebral infarction affecting right dominant side (principal) ==

== ENCOUNTER 2021-12-25 08:15 | Outpatient (CLI) | payer MEDICAID ==
[~2021-12-25] VITALS: Ht 177.8 cm; Wt 103.4 kg
[2021-12-25 09:15] VITALS: BP 139/89
[2021-12-25] MEDS ORDERED: diphenhydrAMINE 50 MG/ML INJ (BENADRYL) IV PRN (09:15)
[2021-12-25] MEDS ORDERED: BEBTELOVIMAB 175 MG/2 ML VIAL IV ONE (09:15)
[2021-12-25] MEDS ORDERED: ACETAMINOPHEN 500 MG TAB (TYLENOL) PO PRN (09:15)
[2021-12-25] MEDS ORDERED: EPINEPHrine INJECTION 1 MG/ML AMP IM PRN (09:15)
[2021-12-25] MEDS ORDERED: ONDANSETRON 4 MG/2 ML (SDV) Z0FRAN IV PRN (09:15)
[2021-12-25 11:20] VITALS: BP 151/86
== END 2021-12-25 11:22 | disposition home or self-care (01) ==
LOC: INFUSION 08:15
PROVIDERS: ATTEND Nurse Practitioner Community Health
DX: U07.1 COVID-19 (principal)

== ENCOUNTER → 2022-02-10 | Outpatient (CLI) | payer MEDICAID | LOC: CARD 08:59 | PROVIDERS: ATTEND Internal Medicine Cardiovascular Disease | DX: I10 Essential (primary) hypertension (principal) | CPT/HCPCS: 93306 ==

== ENCOUNTER 2022-02-12 23:33 | Emergency (ER) | payer MEDICAID ==
[~2022-02-12] VITALS: Ht 182 cm; Wt 100.0 kg
[2022-02-12] MEDS ORDERED: ASPIRIN 81 MG CHEW (CHILDREN'S ASA) PO ONE (23:45)
[2022-02-12] MEDS ORDERED: NITROGLYCERIN 0.4 MG SL TABS BTL 25'S SL PRN (23:45)
--- NOTE | 2022-02-12 23:58 | ED Chest Pain ---
General Chief Complaint: Chest Pain Stated Complaint: CP Source: EMS, [place] [facility] records Exam Limitations: other (ON ARRIVAL, PT IS NOT REALLY TALKING, DOES ANSWER A FEW QUESTIONS, WITH VERY MINIMAL ANSWERS. ) History of Present Illness Date Seen by Provider: Feb 12, 2022 Time Seen by Provider: 23:35 Initial Comments PT ARRIVES VIA EMS FROM [facility] ASSISTED LIVING STAFF CAME TO GIVE HIM HIS PM DOSES OF GABAPENTIN AND OXYCONTIN AT 2245 TONIGHT AND PT C/O CHEST PAIN, SO EMS WAS CALLED WHEN I ASKED WHERE HIS PAIN WAS AND WHEN IT STARTED, PT DOES NOT ANSWER, JUST HAS A BLANK STARE AND DOES NOT ACKNOWLEDGE ME OR THAT I HAVE BEEN TALKING TO HIM. 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 HE ALSO REPORTED TO HER THAT HE HAD PAIN IN HIS LEFT LATERAL CHEST AREA--DIRECTLY OVER HIS PACEMAKER SITE, BUT IS GONE NOW HE DOES NOT VOICE ANY OTHER COMPLAINTS. PT IS FOCUSED ON THE IV STARTS, ETC. ON ARRIVAL NO OTHER INFORMATION IS OBTAINABLE AT THIS TIME, PT IS NOT ANSWERING ANY OTHER QUESTIONS OR TALKING AT ALL. HAS VERY FLAT AFFECT AND BLANK STARE. NO REPORT FROM [facility] ABOUT HIS BASELINE MENTATION Allergies and Home Medications Allergies Coded Allergies: No Known Drug Allergies (Unverified , 01/08/21) Patient Home Medication List Home Medication List Reviewed: Yes ALPRAZolam (ALPRAZolam) 0.25 Mg Tablet, 0.25 MG PO Q8H PRN for ANXIETY, (Reported) Entered as Reported by: STANLEY SIERRA on 01/09/21 1051 Acetaminophen (Tylenol Extra Strength) 500 Mg Tablet, 1,000 MG PO TID PRN for PAIN-MILD (1-4), (Reported) Entered as Reported by: STANLEY SIERRA on 01/09/21 1051 Apixaban (Eliquis) 5 Mg Tablet, 5 MG PO BID, (Reported) Entered as Reported by: STANLEY SIERRA on 01/09/21 1051 Aspirin (Aspirin) 81 Mg Tab.chew, 81 MG PO DAILY, (Reported) Entered as Reported by: STANLEY SIERRA on 01/09/21 1051 Atorvastatin Calcium (Atorvastatin Calcium) 40 Mg Tablet, 40 MG PO HS, (Reported) Entered as Reported by: STANLEY SIERRA on 01/09/21 1051 Bisacodyl (Bisacodyl) 10 Mg Supp.rect, 10 MG RC Q48H PRN for CONSTIPATION-3RD LINE, (Reported) Entered as Reported by: STANLEY SIERRA on 01/09/21 1051 Bisoprolol Fumarate (Bisoprolol Fumarate) 5 Mg Tablet, 5 MG PO DAILY, (Reported) Entered as Reported by: STANLEY SIERRA on 01/09/21 1051 Diclofenac Sodium (Voltaren Arthritis Pain) 20 Gm Gel..gram., 1 GM TP QID, (Reported) Entered as Reported by: STANLEY SIERRA on 01/09/21 1051 Duloxetine HCl (Duloxetine HCl) 60 Mg Capsule.dr, 60 MG PO HS, (Reported) Entered as Reported by: STANLEY SIERRA on 01/09/21 1051 Gabapentin (Gabapentin) 800 Mg Tablet, 800 MG PO TID, (Reported) Entered as Reported by: STANLEY SIERRA on 01/09/21 1051 Lactulose (Lactulose) 20 Gm/30 Ml Solution, 15 ML PO BID PRN for CONSTIPATION- 3RD LINE, (Reported) Entered as Reported by: STANLEY SIERRA on 01/09/21 1051 Levetiracetam (Levetiracetam) 500 Mg Tablet, 500 MG PO BID Prescribed by: ILIA JAMES on 01/10/21 1042 Oxycodone HCl (Oxycodone HCl) 5 Mg Tablet, 5 MG PO 0700,1300,1800,2300, (Reported) Entered as Reported by: STANLEY SIERRA on 01/09/21 1051 Pantoprazole Sodium (Protonix) 40 Mg Tablet.dr, 40 MG PO DAILY Prescribed by: TONY MACK on 04/03/21 180 Phenazopyridine HCl (Pyridium) 200 Mg Tablet, 1 TAB PO TID PRN for PAIN-MODERATE (5-7) Prescribed by: TONY MACK on 04/03/21 175 Sennosides/Docusate Sodium (Senna-S Tablet) 1 Each Tablet, 1 EACH PO BID, (Reported) Entered as Reported by: STANLEY SIERRA on 01/09/21 1051 Tamsulosin HCl (Flomax) 0.4 Mg Cap, 0.4 MG PO DAILY Prescribed by: TONY MACK on 04/03/21 1757 Zinc Oxide (Boudreauxs) 57 Gm Oint...g., 1 APPLIC TP TID PRN for SKIN CHANGES, (Reported) Entered as Reported by: STANLEY SIERRA on 01/09/21 1051 Review of Systems Review of Systems Constitutional: other (POOR HISTORIAN) Cardiovascular: See HPI Psychiatric/Neurological: Pre-Existing Deficit (PRIOR CVA WITH RIGHT SIDED WEAKNESS AND RIGHT ARM AND HAND CONTRACTURES) Past Cntxype-Oqytwe-Nvawqb Hx Immunizations Up To Date First/Initial COVID19 Vaccinat: YES Second COVID19 Vaccination Miki: YES Seasonal Allergies Seasonal Allergies: No Past Medical History Surgeries: Yes (finger, achillies,) Orthopedic Respiratory: No Cardiac: Yes Atrial Fibrillation, Hypertension Neurological: Yes Stroke Genitourinary: No Gastrointestinal: No Musculoskeletal: Yes Chronic Back Pain Endocrine: No HEENT: No Cancer: No Psychosocial: No Integumentary: No Blood Disorders: No Adverse Reaction/Blood Tranf: No Family Medical History Heart Disease, Cancer, Cerebral Aneurysm Physical Exam Vital Signs Capillary Refill : Height, Weight, BMI Height: 5'10.00" Weight: 258lbs. 15.0oz. [id number]; 31.50 BMI Method:Stated General Appearance: No Apparent Distress, WD/WN, Other Neck: Normal Inspection Respiratory: Chest Non Tender, Normal Breath Sounds, No Accessory Muscle Use, No Respiratory Distress, Other (PATIENT REPORTS PAIN WAS RIGHT OVER HIS PACEMAKER SITE, BUT IT APPEARS NORMAL AND VERY WELL HEALED AND NO SIGNS OF INFECTION. AREA IS NON-TENDER. ) Cardiovascular: Regular Rate, Rhythm, No Edema, No JVD, No Murmur, Normal Peripheral Pulses Gastrointestinal: Non Tender, Soft Extremity: Normal Capillary Refill, No Pedal Edema Neurologic/Psychiatric: Alert, Oriented x3, Other (RIGHT SIDED WEAKNESS, WITH FLEXION CONTRACTURES OF RIGHT ARM AND HAND. MENTATION NOTED ABOVE. PT WITH SLIGHTLY SLOW MENTATION AND APPEARS TO HAVE SOME MILD EXPRESSIVE APHASIA. ) Skin: Normal Color, Warm/Dry Progress/Results/Core Measures Results/Orders Lab Results Laboratory Tests Test 02/12/22 23:50 02/13/22 01:26 02/13/22 02:24 Range/Units Influenza Type A (RT-PCR) Not Detected Not Detecte Influenza Type B (RT-PCR) Not Detected Not Detecte SARS-CoV-2 RNA (RT-PCR) Not Detected Not Detecte White Blood Count 6.7 4.3-11.0 10^3/uL Red Blood Count 4.68 4.30-5.52 10^6/uL Hemoglobin 14.1 13.3-17.7 g/dL Hematocrit 43 40-54 % Mean Corpuscular Volume 91 80-99 fL Mean Corpuscular Hemoglobin 30 25-34 pg Mean Corpuscular Hemoglobin Concent 33 32-36 g/dL Red Cell Distribution Width 14.2 10.0-14.5 % Platelet Count 202 130-400 10^3/uL Mean Platelet Volume 10.5 9.0-12.2 fL Immature Granulocyte % (Auto) 1 % Neutrophils (%) (Auto) 48 42-75 % Lymphocytes (%) (Auto) 36 12-44 % Monocytes (%) (Auto) 10 0-12 % Eosinophils (%) (Auto) 5 0-10 % Basophils (%) (Auto) 1 0-10 % Neutrophils # (Auto) 3.2 1.8-7.8 10^3/uL Lymphocytes # (Auto) 2.4 1.0-4.0 10^3/uL Monocytes # (Auto) 0.7 0.0-1.0 10^3/uL Eosinophils # (Auto) 0.3 0.0-0.3 10^3/uL Basophils # (Auto) 0.1 0.0-0.1 10^3/uL Immature Granulocyte # (Auto) 0.1 0.0-0.1 10^3/uL Percent Immature Platelet Fraction 3.5 0.0-7.6 % B-Type Natriuretic Peptide 99.9 <100.0 PG/ML Prothrombin Time 14.4 12.2-14.7 SEC INR Comment 1.1 0.8-1.4 Activated Partial Thromboplast Time 35 24-35 SEC D-Dimer 0.47 0.00-0.49 UG/ML Sodium Level 145 135-145 MMOL/L Potassium Level 4.2 3.6-5.0 MMOL/L Chloride Level 106 98-107 MMOL/L Carbon Dioxide Level 23 21-32 MMOL/L Anion Gap 16 H 5-14 MMOL/L Blood Urea Nitrogen 9 7-18 MG/DL Creatinine 1.07 0.60-1.30 MG/DL Estimat Glomerular Filtration Rate 78 BUN/Creatinine Ratio 8 Glucose Level 101 70-105 MG/DL Calcium Level 9.1 8.5-10.1 MG/DL Corrected Calcium 9.3 8.5-10.1 MG/DL Magnesium Level 2.1 1.6-2.4 MG/DL Total Bilirubin 0.4 0.1-1.0 MG/DL Aspartate Amino Transf (AST/SGOT) 28 5-34 U/L Alanine Aminotransferase (ALT/SGPT) 30 0-55 U/L Alkaline Phosphatase 97 40-136 U/L Total Creatine Kinase 147 30-200 U/L Creatine Kinase MB 3.0 <6.6 NG/ML Myoglobin 62.5 10.0-92.0 NG/ML Troponin I < 0.028 <0.028 NG/ML Total Protein 6.9 6.4-8.2 GM/DL Albumin 3.8 3.2-4.5 GM/DL Amylase Level 43 25-125 U/L Lipase 35 8-78 U/L My Orders Orders - MAXINE GUILLEN DO Ekg Tracing (02/12/22 23:35) Cbc With Automated Diff (02/12/22 23:36) Magnesium (02/12/22 23:36) Ekg Tracing (02/12/22 23:36) Comprehensive Metabolic Panel (02/12/22 23:36) Myoglobin Serum (02/12/22 23:36) Protime With Inr (02/12/22 23:36) Partial Thromboplastin Time (02/12/22 23:36) O2 (02/12/22 23:36) Monitor-Rhythm Ecg Trace Only (02/12/22 23:36) Ed Iv/Invasive Line Start (02/12/22 23:36) Creatine Kinase (02/12/22 23:36) Creatine Kinase Mb (02/12/22 23:36) Lipase (02/12/22 23:36) Amylase (02/12/22 23:36) Bnp Amilcar (02/12/22 23:36) Fibrin Degradation Products (02/12/22 23:36) Troponin I Amilcar (02/12/22 23:36) Nitroglycerin 0.4 Mg Btl 25's (Nitrostat (02/12/22 23:45) Aspirin Chewable Tablet (Baby Aspirin Ch (02/12/22 23:45) Covid 19 Inhouse Test (02/12/22 23:36) Influenza A And B By Pcr (02/12/22 23:36) Isolation Central Supply Req (02/12/22 23:36) Chest 1 View, Ap/Pa Only (02/13/22 00:01) Medications Given in ED Current Medications Medications Dose Ordered Sig/Mauro Route Start Time Stop Time Status Last Admin Dose Admin Nitroglycerin 0.4 mg UD PRN SL 02/12/22 23:45 02/13/22 00:36 0.4 MG Progress Progress Note : Progress Note VERY DIFFICULT IV ACCESS, WITH MULTIPLE ATTEMPTS BY MULTIPLE STAFF MEMBERS VERY SMALL AMOUNT OF BLOOD OBTAINED FOR LAB TESTING. CHEST PAIN RESOLVED ON OR PRIOR TO ARRIVAL. PT DENIES CHEST PAIN FOR REMAINDER OF ER STAY OR ANY OTHER COMPLAINTS BP DOWN WITHOUT TREATMENT. NO DETERIORATION IN PT'S CONDITION DURING ER STAY WHEN ALL LAB COMPLETE, AND WHILE STANDING ON PT'S LEFT SIDE, HE IS CONVERSIVE AND ABLE TO ANSWER ALL QUESTIONS AND FOLLOW COMMANDS HE DOES APPEAR TO HAVE SOMEWHAT SLOW MENTATION AND POSSIBLY SOME MILD EXPRESSIVE APHASIA. PT IS ANXIOUS TO GO HOME TO SUE ALMAZAN Initial ECG Impression Date: Feb 12, 2022 Initial ECG Impression Time: 23:50 Initial ECG Rate: 80 Comment 100% VENTRICULAR PACED. Diagnostic Imaging Comments CXR--NO ACUTE PROCESS, PENDING RADIOLOGIST REVIEW Reviewed: Reviewed by Me Departure Impression Primary Impression: Chest pain Additional Impression: Hypertension Disposition: 01 HOME, SELF-CARE Condition: Improved Departure-Patient Inst. Decision time for Depature: 03:12 Referrals: KATELYN ALEJANDRE (PCP) Primary Care Physician [facility] (Family) Primary Care Physician Patient Instructions: Chest Pain (DC), High Blood Pressure (DC) Add. Discharge Instructions: CONTINUE YOUR REGULAR MEDICATIONS PRESCRIBED RETURN TO ER IF SYMPTOMS RETURN All discharge instructions reviewed with patient and/or family. Voiced understanding. MAXINE GUILLEN DO Feb 12, 2022 23:58
[2022-02-13 01:41] LABS: BASOPHILS # (AUTO) 0.1 10^3/uL (0.0-0.1); BASOPHILS % (AUTO) 1 % (0-10); EOSINOPHILS # (AUTO) 0.3 10^3/uL (0.0-0.3); EOSINOPHILS % (AUTO) 5 % (0-10); HEMATOCRIT 43 % (40-54); HEMOGLOBIN 14.1 g/dL (13.3-17.7); LYMPHOCYTES # (AUTO) 2.4 10^3/uL (1.0-4.0); LYMPHOCYTES % (AUTO) 36 % (12-44); MEAN CORPUSCULAR HEMOGLOBIN 30 pg (25-34); MEAN CORPUSCULAR HGB CONC 33 g/dL (32-36); MEAN CORPUSCULAR VOLUME 91 fL (80-99); MEAN PLATELET VOLUME 10.5 fL (9.0-12.2); MONOCYTES # (AUTO) 0.7 10^3/uL (0.0-1.0); MONOCYTES % (AUTO) 10 % (0-12); NEUTROPHILS # (AUTO) 3.2 10^3/uL (1.8-7.8); NEUTROPHILS % (AUTO) 48 % (42-75); PLATELET COUNT 202 10^3/uL (130-400); WHITE BLOOD COUNT 6.7 10^3/uL (4.3-11.0)
[2022-02-13 02:42] LABS: ALBUMIN 3.8 GM/DL (3.2-4.5); POTASSIUM 4.2 MMOL/L (3.6-5.0)
[2022-02-13 02:43] LABS: CALCIUM 9.1 MG/DL (8.5-10.1); INR 1.1 (0.8-1.4); PROTHROMBIN TIME PATIENT 14.4 SEC (12.2-14.7)
[2022-02-13 02:44] LABS: TOTAL PROTEIN 6.9 GM/DL (6.4-8.2)
[2022-02-13 02:46] LABS: BILIRUBIN,TOTAL 0.4 MG/DL (0.1-1.0)
[2022-02-13 02:48] LABS: CREATININE SERUM 1.07 MG/DL (0.60-1.30)
[2022-02-13 02:51] LABS: MAGNESIUM 2.1 MG/DL (1.6-2.4)
[2022-02-13 03:30] VITALS: BP 150/100
--- NOTE | 2022-02-13 07:22 | Diagnostic Imaging Report ---
INDICATION: Chest pain AP view of chest is obtained with comparison made to study of 04/03/2021 FINDINGS: Heart size and pulmonary vascularity are within normal limits, and the lungs are clear, bilaterally. IMPRESSION: Unremarkable chest. Dictated by: Dictated on workstation # [id number]
== END 2022-02-13 03:28 | disposition home or self-care (01) ==
LOC: EDUNIT# 23:33 → ER 23:34
DX: I10 Essential (primary) hypertension (principal); Z20.822 Contact with and (suspected) exposure to COVID-19
CPT/HCPCS: 36415; 71045; 80053; 82150; 82550; 82553; 83690; 83735; 83874; 83880; 84484; 85025; 85379; 85610; 85730; 87636; 93005; 93041

== ENCOUNTER 2022-03-03 08:43 | Emergency (ER) | payer MEDICAID ==
[~2022-03-03] VITALS: Ht 177.8 cm; Wt 99.7 kg
--- NOTE | 2022-03-03 09:12 | ED Chest Pain ---
General Stated Complaint: CHEST PAIN Source: patient, family (sister) Exam Limitations: clinical condition (post stroke 2 years) History of Present Illness Date Seen by Provider: Mar 03, 2022 Time Seen by Provider: 08:50 Initial Comments Patient is a 61-year-old male who presents from a local care home chief complaint of chest pain. Unknown time of onset however the sister is with the patient and states the care home called her first when he started complaining of chest pain. He was given a scheduled pain pill prior to arrival, she states that it does not seem to have helped. He has a history of 3 strokes. His most recent stroke was in March 2020. It has left him partially right-sided hemiplegic. He subsequently developed congestive heart failure/cardiomyopathy and has a pacer defibrillator on the left chest. On examination and history the patient points directly to the pacemaker as the source of his pain. It seems to be quite tender to palpation. She is the sister is unaware of any recent fevers, chills, productive cough. He has not had any falls or injury according to him and the sister. Nothing has made the pain any better. He denies that deep breath makes it worse. To our knowledge the defibrillator has not fired. Dr. Gibson is his dynamite shooter. He has no history of stents or bypass surgery. All other review of systems reviewed and negative except as stated. Timing/Duration: 1-3 hours Severity/Quality: moderate Location: other (Left upper chest at the pacemaker site) Radiation: no radiation Activities at Onset: none ASA po PHARMACIST IN CHARGE OWNER: No NTG SL PHARMACIST IN CHARGE OWNER: No Associated Symptoms: denies symptoms Allergies and Home Medications Allergies Coded Allergies: No Known Drug Allergies (Unverified , 01/08/21) Patient Home Medication List Home Medication List Reviewed: Yes ALPRAZolam (ALPRAZolam) 0.25 Mg Tablet, 0.25 MG PO Q8H PRN for ANXIETY, (Reported) Entered as Reported by: STANLEY SIERRA on 01/09/21 1051 Acetaminophen (Tylenol Extra Strength) 500 Mg Tablet, 1,000 MG PO TID PRN for PAIN-MILD (1-4), (Reported) Entered as Reported by: STANLEY SIERRA on 01/09/21 1051 Apixaban (Eliquis) 5 Mg Tablet, 5 MG PO BID, (Reported) Entered as Reported by: STANLEY SIERRA on 01/09/21 1051 Aspirin (Aspirin) 81 Mg Tab.chew, 81 MG PO DAILY, (Reported) Entered as Reported by: STANLEY SIERRA on 01/09/21 1051 Atorvastatin Calcium (Atorvastatin Calcium) 40 Mg Tablet, 40 MG PO HS, (Reported) Entered as Reported by: STANLEY SIERRA on 01/09/21 1051 Bisacodyl (Bisacodyl) 10 Mg Supp.rect, 10 MG RC Q48H PRN for CONSTIPATION-3RD LINE, (Reported) Entered as Reported by: STANLEY SIERRA on 01/09/21 105 Bisoprolol Fumarate (Bisoprolol Fumarate) 5 Mg Tablet, 5 MG PO DAILY, (Reported) Entered as Reported by: STANLEY SIERRA on 01/09/21 1051 Diclofenac Sodium (Voltaren Arthritis Pain) 20 Gm Gel..gram., 1 GM TP QID, (Reported) Entered as Reported by: STANLEY SIERRA on 01/09/21 1051 Duloxetine HCl (Duloxetine HCl) 60 Mg Capsule.dr, 60 MG PO HS, (Reported) Entered as Reported by: STANLEY SIERRA on 01/09/21 1051 Gabapentin (Gabapentin) 800 Mg Tablet, 800 MG PO TID, (Reported) Entered as Reported by: STANLEY SIERRA on 01/09/21 105 Lactulose (Lactulose) 20 Gm/30 Ml Solution, 15 ML PO BID PRN for CONSTIPATION- 3RD LINE, (Reported) Entered as Reported by: STANLEY SIERRA on 01/09/21 105 Levetiracetam (Levetiracetam) 500 Mg Tablet, 500 MG PO BID Prescribed by: ILIA JAMES on 01/10/21 1042 Oxycodone HCl (Oxycodone HCl) 5 Mg Tablet, 5 MG PO 0700,1300,1800,2300, (Reported) Entered as Reported by: STANLEY SIERRA on 01/09/21 1051 Pantoprazole Sodium (Protonix) 40 Mg Tablet.dr, 40 MG PO DAILY Prescribed by: TONY MACK on 04/03/21 1809 Phenazopyridine HCl (Pyridium) 200 Mg Tablet, 1 TAB PO TID PRN for PAIN-MODERATE (5-7) Prescribed by: TONY MACK on 04/03/21 175 Sennosides/Docusate Sodium (Senna-S Tablet) 1 Each Tablet, 1 EACH PO BID, (Reported) Entered as Reported by: STANLEY SIERRA on 01/09/21 105 Tamsulosin HCl (Flomax) 0.4 Mg Cap, 0.4 MG PO DAILY Prescribed by: TONY MACK on 04/03/211756 Zinc Oxide (Boudreauxs) 57 Gm Oint...g., 1 APPLIC TP TID PRN for SKIN CHANGES, (Reported) Entered as Reported by: STANLEY SIERRA on 01/09/21 105 Review of Systems Review of Systems Constitutional: see HPI EENTM: No Symptoms Reported Respiratory: No Symptoms Reported Cardiovascular: Chest Pain Gastrointestinal: No Symptoms Reported Genitourinary: No Symptoms Reported Musculoskeletal: no symptoms reported Skin: no symptoms reported Psychiatric/Neurological: No Symptoms Reported All Other Systems Reviewed Negative Unless Noted: Yes Past Levkrus-Uhccth-Ngrauq Hx Immunizations Up To Date First/Initial COVID19 Vaccinat: YES Second COVID19 Vaccination Miki: YES Third COVID19 Vaccination Date: YES Seasonal Allergies Seasonal Allergies: No Past Medical History Surgeries: Yes (finger, achillies,) Orthopedic Respiratory: No Cardiac: Yes Atrial Fibrillation, Hypertension Neurological: Yes Stroke Genitourinary: No Gastrointestinal: No Musculoskeletal: Yes Chronic Back Pain Endocrine: No HEENT: No Cancer: No Psychosocial: No Integumentary: No Blood Disorders: No Adverse Reaction/Blood Tranf: No Family Medical History Heart Disease, Cancer, Cerebral Aneurysm Physical Exam Vital Signs Vital Signs - First Documented 03/03/22 08:43 Pulse 80 Resp 15 B/P (MAP) 167/105 (125) Pulse Ox 97 O2 Delivery Room Air Capillary Refill : Height, Weight, BMI Height: 5'10.00" Weight: 258lbs. 15.0oz. 117.974717oy; 30.00 BMI Method:Stated General Appearance: No Apparent Distress, WD/WN HEENT: PERRL/EOMI Neck: Normal Inspection Respiratory: Lungs Clear, Normal Breath Sounds, No Accessory Muscle Use, No Respiratory Distress Cardiovascular: Regular Rate, Rhythm, Normal Peripheral Pulses Gastrointestinal: Non Tender, Soft Extremity: Normal Capillary Refill, Normal Range of Motion (Left upper extremity), Other (Right upper extremity in a sling some contractures noted to the hand) Neurologic/Psychiatric: Alert Skin: Normal Color, Warm/Dry Progress/Results/Core Measures Results/Orders Lab Results Laboratory Tests Test 03/03/22 09:43 03/03/22 12:10 Range/Units White Blood Count 6.7 4.3-11.0 10^3/uL Red Blood Count 4.57 4.30-5.52 10^6/uL Hemoglobin 14.0 13.3-17.7 g/dL Hematocrit 42 40-54 % Mean Corpuscular Volume 93 80-99 fL Mean Corpuscular Hemoglobin 31 25-34 pg Mean Corpuscular Hemoglobin Concent 33 32-36 g/dL Red Cell Distribution Width 14.1 10.0-14.5 % Platelet Count 193 130-400 10^3/uL Mean Platelet Volume 10.2 9.0-12.2 fL Immature Granulocyte % (Auto) 0 % Neutrophils (%) (Auto) 53 42-75 % Lymphocytes (%) (Auto) 31 12-44 % Monocytes (%) (Auto) 12 0-12 % Eosinophils (%) (Auto) 3 0-10 % Basophils (%) (Auto) 0 0-10 % Neutrophils # (Auto) 3.5 1.8-7.8 10^3/uL Lymphocytes # (Auto) 2.0 1.0-4.0 10^3/uL Monocytes # (Auto) 0.8 0.0-1.0 10^3/uL Eosinophils # (Auto) 0.2 0.0-0.3 10^3/uL Basophils # (Auto) 0.0 0.0-0.1 10^3/uL Immature Granulocyte # (Auto) 0.0 0.0-0.1 10^3/uL Prothrombin Time 15.9 H 12.2-14.7 SEC INR Comment 1.2 0.8-1.4 Activated Partial Thromboplast Time 41 H 24-35 SEC Sodium Level 141 135-145 MMOL/L Potassium Level 4.0 3.6-5.0 MMOL/L Chloride Level 108 H 98-107 MMOL/L Carbon Dioxide Level 26 21-32 MMOL/L Anion Gap 7 5-14 MMOL/L Blood Urea Nitrogen 11 7-18 MG/DL Creatinine 1.19 0.60-1.30 MG/DL Estimat Glomerular Filtration Rate 69 BUN/Creatinine Ratio 9 Glucose Level 90 70-105 MG/DL Calcium Level 9.3 8.5-10.1 MG/DL Corrected Calcium 9.4 8.5-10.1 MG/DL Magnesium Level 2.1 1.6-2.4 MG/DL Total Bilirubin 0.6 0.1-1.0 MG/DL Aspartate Amino Transf (AST/SGOT) 24 5-34 U/L Alanine Aminotransferase (ALT/SGPT) 27 0-55 U/L Alkaline Phosphatase 97 40-136 U/L Myoglobin 83.2 10.0-92.0 NG/ML Troponin I < 0.028 < 0.028 <0.028 NG/ML Total Protein 6.7 6.4-8.2 GM/DL Albumin 3.9 3.2-4.5 GM/DL My Orders Orders - BHASKAR DEAN MD Ekg Tracing (03/03/22 08:50) Cbc With Automated Diff (03/03/22 09:08) Magnesium (03/03/22 09:08) Chest 1 View, Ap/Pa Only (03/03/22 09:08) Ekg Tracing (03/03/22 09:08) Comprehensive Metabolic Panel (03/03/22 09:08) Myoglobin Serum (03/03/22 09:08) Protime With Inr (03/03/22 09:08) Partial Thromboplastin Time (03/03/22 09:08) O2 (03/03/22 09:08) Monitor-Rhythm Ecg Trace Only (03/03/22 09:08) Lipid Panel (03/04/22 06:00) Ed Iv/Invasive Line Start (03/03/22 09:08) Troponin I Pondera (03/03/22 09:08) Aspirin Chewable Tablet (Baby Aspirin Ch (03/03/22 09:15) Levetiracetam Tablet (Keppra Tablet) (03/03/22 11:00) Apixaban Tablet (Eliquis Tablet) (03/03/22 11:00) Gabapentin Capsule/Tablet (Neurontin Cap (03/03/22 11:00) Ketorolac Injection (Toradol Injection) (03/03/22 11:00) Troponin I Pondera (03/03/22 10:54) Medications Given in ED Current Medications Medications Dose Ordered Sig/Mauro Route Start Time Stop Time Status Last Admin Dose Admin Apixaban 5 mg ONCE ONCE PO 03/03/22 11:00 03/03/22 11:01 DC 03/03/22 11:10 5 MG Aspirin 324 mg ONCE ONCE PO 03/03/22 09:15 03/03/22 09:16 DC 03/03/22 09:24 324 MG Gabapentin 600 mg ONCE ONCE PO 03/03/22 11:00 03/03/22 11:01 DC 03/03/22 11:10 600 MG Ketorolac Tromethamine 30 mg ONCE ONCE IM 03/03/22 11:00 03/03/22 11:01 DC 03/03/22 11:12 30 MG Levetiracetam 500 mg ONCE ONCE PO 03/03/22 11:00 03/03/22 11:01 DC 03/03/22 11:10 500 MG Vital Signs/I&O 03/03/22 08:43 Pulse 80 Resp 15 B/P (MAP) 167/105 (125) Pulse Ox 97 O2 Delivery Room Air Progress Progress Note : Time: 10:53 Progress Note Patient's vital signs remained stable. He still complains of pain, I believe he is somewhat unreliable due to his history of stroke and cognitive deficiency. I called the care home to find out what time he started complaining of chest pain, one of the nurses at the facility told me it was at approximately 6:30 AM. We will repeat his troponin at this time. He did miss his 8:00 meds which include gabapentin 600, Keppra 500 and Eliquis 5 mg. I am going to go ahead and give him these as well. If his troponin is negative I think we can effectively rule out acute coronary syndrome. Sister is made aware and is agreeable with the plan of care. Initial ECG Impression Date: Mar 03, 2022 Initial ECG Impression Time: 08:52 Initial ECG Rate: 80 Comment Paced rhythm Diagnostic Imaging Diagonstic Imaging: Xray Plain Films/CT/US/NM/MRI: chest Comments [facility] [place], [place] NAME: JAYSHREE GORDON MED REC#: [id number] PT STATUS: REG ER : 1960 PHYSICIAN: BHASKAR DEAN MD ADMIT DATE: 03/03/22/ER Draft Date of Exam:03/03/22 CHEST 1 VIEW, AP/PA ONLY CLINICAL INDICATION: Patient complaining of chest pain. Patient says pain is on the left side and is worse with movement. EXAM: Portable chest x-ray, upright view. COMPARISON: Chest x-ray dated 02/13/2022. FINDINGS: Lungs/pleura: Lungs are clear. There is no pneumothorax. There is no pleural effusion. Mediastinum: Unremarkable. Pulmonary vasculature: Unremarkable. Heart: Cardiac silhouette is upper limits of normal for portable projection. Cardiac pacemaker is again seen overlying the left chest. Bones/extrathoracic soft tissue: There are degenerative spurs involving the thoracic spine. IMPRESSION: Stable chest x-ray exam with no radiographic evidence of an acute cardiopulmonary process. Dictated on workstation # [id number] Dict: 03/03/2240 Trans: 03/03/2246 [id number] Interpreted by: TOYA MARCOS MD Electronically signed by: Departure Impression Primary Impression: Chest pain Qualified Codes: R07.9 - Chest pain, unspecified Disposition: 01 HOME, SELF-CARE Condition: Stable Departure-Patient Inst. Decision time for Depature: 12:48 Referrals: [facility] [place] Primary Care Physician Patient Instructions: Chest Pain That Is Not Caused by the Heart (DC) Add. Discharge Instructions: Continue prescribed oxycodone as needed for pain. If the chest pain worsens or you have nausea/vomiting, shortness of breath please come back to the emergency room for reevaluation. Please keep your scheduled follow-up with Dr. Gibson. You have had your morning doses of Keppra, Eliquis and gabapentin. Copy Copies To 1: MANUEL STARK DO Copies To 2: DEVON GIBSON MD, KATHRYN M MD Mar 03, 2022 09:12
[2022-03-03] MEDS ORDERED: ASPIRIN 81 MG CHEW (CHILDREN'S ASA) PO ONE (09:15)
--- NOTE | 2022-03-03 09:47 | Diagnostic Imaging Report ---
CLINICAL INDICATION: Patient complaining of chest pain. Patient says pain is on the left side and is worse with movement. EXAM: Portable chest x-ray, upright view. COMPARISON: Chest x-ray dated 02/13/2022. FINDINGS: Lungs/pleura: Lungs are clear. There is no pneumothorax. There is no pleural effusion. Mediastinum: Unremarkable. Pulmonary vasculature: Unremarkable. Heart: Cardiac silhouette is upper limits of normal for portable projection. Cardiac pacemaker is again seen overlying the left chest. Bones/extrathoracic soft tissue: There are degenerative spurs involving the thoracic spine. IMPRESSION: Stable chest x-ray exam with no radiographic evidence of an acute cardiopulmonary process. Dictated by: Dictated on workstation # [id number]
[2022-03-03 09:52] LABS: BASOPHILS % (AUTO) 0 % (0-10); EOSINOPHILS # (AUTO) 0.2 10^3/uL (0.0-0.3); EOSINOPHILS % (AUTO) 3 % (0-10); HEMATOCRIT 42 % (40-54); LYMPHOCYTES % (AUTO) 31 % (12-44); MEAN CORPUSCULAR HEMOGLOBIN 31 pg (25-34); MEAN CORPUSCULAR HGB CONC 33 g/dL (32-36); MEAN CORPUSCULAR VOLUME 93 fL (80-99); MEAN PLATELET VOLUME 10.2 fL (9.0-12.2); MONOCYTES # (AUTO) 0.8 10^3/uL (0.0-1.0); MONOCYTES % (AUTO) 12 % (0-12); NEUTROPHILS # (AUTO) 3.5 10^3/uL (1.8-7.8); NEUTROPHILS % (AUTO) 53 % (42-75); PLATELET COUNT 193 10^3/uL (130-400); WHITE BLOOD COUNT 6.7 10^3/uL (4.3-11.0)
[2022-03-03 10:09] LABS: ALBUMIN 3.9 GM/DL (3.2-4.5)
[2022-03-03 10:10] LABS: CALCIUM 9.3 MG/DL (8.5-10.1)
[2022-03-03 10:11] LABS: INR 1.2 (0.8-1.4); PROTHROMBIN TIME PATIENT 15.9 SEC (12.2-14.7); TOTAL PROTEIN 6.7 GM/DL (6.4-8.2)
[2022-03-03 10:13] LABS: BILIRUBIN,TOTAL 0.6 MG/DL (0.1-1.0)
[2022-03-03 10:15] LABS: CREATININE SERUM 1.19 MG/DL (0.60-1.30)
[2022-03-03 10:18] LABS: MAGNESIUM 2.1 MG/DL (1.6-2.4)
[2022-03-03] MEDS ORDERED: KETOROLAC 30 MG/ML VIAL IVP ONE (10:30)
[2022-03-03] MEDS ORDERED: KETOROLAC 30 MG/ML VIAL IM ONE (11:00)
[2022-03-03] MEDS ORDERED: GABAPENTIN 600 MG (NEURONTIN) TAB PO ONE (11:00)
[2022-03-03] MEDS ORDERED: APIXABAN 5 MG (ELIQUIS) TABLET PO ONE (11:00)
[2022-03-03 13:10] VITALS: BP 171/109
== END 2022-03-03 13:10 | disposition home or self-care (01) ==
LOC: EDUNIT# 08:49 → ER 08:50
DX: R07.89 Other chest pain (principal); I69.351 Hemiplegia and hemiparesis following cerebral infarction affecting right dominant side; I10 Essential (primary) hypertension; Z86.79 Personal history of other diseases of the circulatory system; Z95.810 Presence of automatic (implantable) cardiac defibrillator
CPT/HCPCS: 36415; 71045; 80053; 83735; 83874; 84484; 85025; 85610; 85730; 93005; 93041

== ENCOUNTER 2022-05-18 20:53 | Emergency (ER) | payer MEDICAID ==
[~2022-05-18] VITALS: Ht 177 cm; Wt 99.7 kg
--- NOTE | 2022-05-18 21:36 | Diagnostic Imaging Report ---
EXAMINATION: Chest 1 view HISTORY: Chest pain COMPARISON: 03/03/2022 FINDINGS: Heart size and pulmonary vasculature are normal. The lungs are clear without consolidation, pleural effusion, or pneumothorax. The osseous structures are intact. A left-sided cardiac device is present. IMPRESSION: 1. No acute radiographic abnormality in the chest. Dictated by: Dictated on workstation # [id number]
--- NOTE | 2022-05-18 21:48 | ED Cardiac General ---
History of Present Illness General Chief Complaint: Cardiac/General Problems Stated Complaint: CARDIO Nursing Triage Note: PT IS BROUGHT TO ED VIA [employer]. EMS ON BLS. PER PT AROUND 1999 HE FELT HIS PACEMAKER ZAP HIM. PT WAS BROUGHT TO ROOM 05. PT IS ALERT AND ORIENTED X'S 4. (CHRISTIN POST) History of Present Illness Date Seen by Provider: May 18, 2022 Time Seen by Provider: 20:57 Initial Comments 61-year-old male presents for implantable [employer] V ICD "zapping" him since 1999 tonight. He has been evaluated in this ED twice this fall for similar symptoms. Device was implanted at [facility] by Dr. Witt in Mar 2020. History of CVA with right hemipalegia, A-fib (on Eliquis), some limitation on history from patient. Denies any other complaints, lives at [facility]. Timing/Duration: 1-3 hours Severity: mild Location: other (left chest wall at site of implanted device, TTP) Activities at Onset: none Prior CP/Workup: cardiac cath, echocardiography NTG SL [employer]: No ASA po [employer]: No Associated Systoms: Chest Pain (from "zapping" ); No Shortness of Air (CHRISTIN POST) Allergies and Home Medications Allergies Coded Allergies: No Known Drug Allergies (Unverified , 01/08/21) Patient Home Medication List Home Medication List Reviewed: Yes (CHRISTIN POST) ALPRAZolam (ALPRAZolam) 0.25 Mg Tablet, 0.25 MG PO Q8H PRN for ANXIETY, (Reported) Entered as Reported by: STANLEY SIERRA on 01/09/21 1051 Acetaminophen (Tylenol Extra Strength) 500 Mg Tablet, 1,000 MG PO TID PRN for PAIN-MILD (1-4), (Reported) Entered as Reported by: STALNEY SIERRA on 01/09/21 1051 Apixaban (Eliquis) 5 Mg Tablet, 5 MG PO BID, (Reported) Entered as Reported by: STANLEY SIERRA on 01/09/21 1051 Aspirin (Aspirin) 81 Mg Tab.chew, 81 MG PO DAILY, (Reported) Entered as Reported by: STANLEY SIERRA on 01/09/21 1051 Atorvastatin Calcium (Atorvastatin Calcium) 40 Mg Tablet, 40 MG PO HS, (Reported) Entered as Reported by: STANLEY SIERRA on 01/09/21 1051 Bisacodyl (Bisacodyl) 10 Mg Supp.rect, 10 MG RC Q48H PRN for CONSTIPATION-3RD LINE, (Reported) Entered as Reported by: STANLEY SIERRA on 01/09/21 1051 Bisoprolol Fumarate (Bisoprolol Fumarate) 5 Mg Tablet, 5 MG PO DAILY, (Reported) Entered as Reported by: STANLEY SIERRA on 01/09/21 1051 Diclofenac Sodium (Voltaren Arthritis Pain) 20 Gm Gel..gram., 1 GM TP QID, (Reported) Entered as Reported by: STANLEY SIERRA on 01/09/21 1051 Duloxetine HCl (Duloxetine HCl) 60 Mg Capsule.dr, 60 MG PO HS, (Reported) Entered as Reported by: STANLEY SIERRA on 01/09/21 1051 Gabapentin (Gabapentin) 800 Mg Tablet, 800 MG PO TID, (Reported) Entered as Reported by: STANLEY SIERRA on 01/09/21 1051 Lactulose (Lactulose) 20 Gm/30 Ml Solution, 15 ML PO BID PRN for CONSTIPATION- 3RD LINE, (Reported) Entered as Reported by: STANLEY SIERRA on 01/09/21 1051 Levetiracetam (Levetiracetam) 500 Mg Tablet, 500 MG PO BID Prescribed by: ILIA JAMES on 01/10/21 1042 Oxycodone HCl (Oxycodone HCl) 5 Mg Tablet, 5 MG PO 0700,1300,1800,2300, (Reported) Entered as Reported by: STANLEY SIERRA on 01/09/21 1051 Pantoprazole Sodium (Protonix) 40 Mg Tablet.dr, 40 MG PO DAILY Prescribed by: TONY MACK on 04/03/21 1809 Phenazopyridine HCl (Pyridium) 200 Mg Tablet, 1 TAB PO TID PRN for PAIN-MODERATE (5-7) Prescribed by: TONY MACK on 04/03/21 175 Sennosides/Docusate Sodium (Senna-S Tablet) 1 Each Tablet, 1 EACH PO BID, (Reported) Entered as Reported by: STANLEY SIERRA on 01/09/21 1051 Tamsulosin HCl (Flomax) 0.4 Mg Cap, 0.4 MG PO DAILY Prescribed by: TONY MACK on 04/03/21 1364 Zinc Oxide (Boudreauxs) 57 Gm Oint...g., 1 APPLIC TP TID PRN for SKIN CHANGES, (Reported) Entered as Reported by: STANLEY SIERRA on 01/09/21 1051 Review of Systems Review of Systems Constitutional: no symptoms reported, see HPI Cardiovascular: See HPI, Chest Pain (at site of implanted device), Irregular H eart Rate; Denies Palpitations, Denies Syncope (CHRISTIN POST) All Other Systems Reviewed Negative Unless Noted: Yes (CHRISTIN POST) Past Prmizdd-Relkos-Ybhtus Hx Patient Social History Tobacco Use?: No Substance use?: No Alcohol Use?: No Pt feels they are or have been: No (CHRISTIN POST) Immunizations Up To Date First/Initial COVID19 Vaccinat: YES Second COVID19 Vaccination Miki: YES Third COVID19 Vaccination Date: YES (CHRISTIN POST) Seasonal Allergies Seasonal Allergies: No (CHRISTIN OPST) Past Medical History Surgery/Hospitalization HX: PMH; SURGERY; Surgeries: Yes (finger, achillies,) Orthopedic Respiratory: No Cardiac: Yes Atrial Fibrillation, Hypertension Neurological: Yes Stroke Genitourinary: No Gastrointestinal: No Musculoskeletal: Yes Chronic Back Pain Endocrine: No HEENT: No Cancer: No Psychosocial: No Integumentary: No Blood Disorders: No Adverse Reaction/Blood Tranf: No (CHRISTIN POST) Family Medical History Reviewed Nursing Family Hx (CHRISTIN POST) Heart Disease, Cancer, Cerebral Aneurysm (CHRISTIN POST) Physical Exam Vital Signs Vital Signs - First Documented 05/18/22 20:57 Temp 36.7 Pulse 80 Resp 14 B/P (MAP) 157/101 (119) Pulse Ox 98 O2 Delivery Room Air (TONY MCFARLANE MD) Vital Signs Capillary Refill : Less Than 3 Seconds (CHRISTIN POST) Height, Weight, BMI Height: 5'10.00" Weight: 258lbs. 15.0oz. [id number]; 31.00 BMI Method:Stated General Appearance: No Apparent Distress, WD/WN Neck: Full Range of Motion, Normal Inspection, Non Tender, Supple Respiratory: Lungs Clear, Normal Breath Sounds, Other (chest tender to palpation over site of implanted device, no erythema or warmth. ) Cardiovascular: No Edema, Normal Peripheral Pulses, Irregularly Irregular Gastrointestinal: Normal Bowel Sounds, Non Tender, Soft Neurologic/Psychiatric: Alert, No Motor/Sensory Deficits, Normal Mood/Affect Skin: Normal Color, Warm/Dry (SINCERE,CHRISTIN MACHINE FANCY STITCHER) Progress/Results/Core Measures Results/Orders Lab Results Laboratory Tests Test 05/18/22 21:50 Range/Units White Blood Count 6.5 4.3-11.0 10^3/uL Red Blood Count 4.38 4.30-5.52 10^6/uL Hemoglobin 13.5 13.3-17.7 g/dL Hematocrit 40 40-54 % Mean Corpuscular Volume 91 80-99 fL Mean Corpuscular Hemoglobin 31 25-34 pg Mean Corpuscular Hemoglobin Concent 34 32-36 g/dL Red Cell Distribution Width 13.3 10.0-14.5 % Platelet Count 190 130-400 10^3/uL Mean Platelet Volume 10.0 9.0-12.2 fL Immature Granulocyte % (Auto) 0 % Neutrophils (%) (Auto) 49 42-75 % Lymphocytes (%) (Auto) 35 12-44 % Monocytes (%) (Auto) 12 0-12 % Eosinophils (%) (Auto) 4 0-10 % Basophils (%) (Auto) 1 0-10 % Neutrophils # (Auto) 3.2 1.8-7.8 10^3/uL Lymphocytes # (Auto) 2.3 1.0-4.0 10^3/uL Monocytes # (Auto) 0.8 0.0-1.0 10^3/uL Eosinophils # (Auto) 0.2 0.0-0.3 10^3/uL Basophils # (Auto) 0.1 0.0-0.1 10^3/uL Immature Granulocyte # (Auto) 0.0 0.0-0.1 10^3/uL Prothrombin Time 14.4 12.2-14.7 SEC INR Comment 1.1 0.8-1.4 Activated Partial Thromboplast Time 40 H 24-35 SEC Sodium Level 141 135-145 MMOL/L Potassium Level 4.1 3.6-5.0 MMOL/L Chloride Level 107 98-107 MMOL/L Carbon Dioxide Level 22 21-32 MMOL/L Anion Gap 12 5-14 MMOL/L Blood Urea Nitrogen 10 7-18 MG/DL Creatinine 1.12 0.60-1.30 MG/DL Estimat Glomerular Filtration Rate 74 BUN/Creatinine Ratio 9 Glucose Level 100 70-105 MG/DL Calcium Level 9.0 8.5-10.1 MG/DL Corrected Calcium 9.1 8.5-10.1 MG/DL Magnesium Level 2.0 1.6-2.4 MG/DL Total Bilirubin 0.3 0.1-1.0 MG/DL Aspartate Amino Transf (AST/SGOT) 20 5-34 U/L Alanine Aminotransferase (ALT/SGPT) 24 0-55 U/L Alkaline Phosphatase 105 40-136 U/L Myoglobin 52.4 10.0-92.0 NG/ML Troponin I < 0.028 <0.028 NG/ML Total Protein 6.9 6.4-8.2 GM/DL Albumin 3.9 3.2-4.5 GM/DL (TONY MCFARLANE MD) Vital Signs/I&O 05/18/22 05/18/22 20:57 23:20 Temp 36.7 36.7 Pulse 80 80 Resp 14 18 B/P (MAP) 157/101 (119) 166/109 Pulse Ox 98 97 O2 Delivery Room Air Room Air (TONY MCFARLANE MD) Blood Pressure Mean: 119 Progress Progress Note : Time: 20:57 Progress Note Patient evaluated, will obtain EKG, chest x-ray and labs. Reviewed past medical records to determine device, could not be interrogated with her [employer] equipment. [address] Gibson, the device is a [employer] produce. Will call the [employer] [place] line for this company, 2134 spoke to Akshat Alcala with [employer] ([employer]), informed we have interrogation equipment for this device, will complete and review report. 2154 report received from [employer], [employer] called and said no defibrillation was deployed, battery life is sufficient at 4.5 years. Did mention a wire to right side of heart may irritate the diaphragm and need replaced or adjusted. Would require outpatient/elective evaluation with press feeder at [facility]. The press feeder at this facility do not implant these devices. 2199 blood obtained for lab work, will plan d/c pending results. 2214 spoke to patient's sister, updated her on status and plans to d/c if labs are all normal. Metoprolol 10 mg IV for B/P. 2244 labs all normal, will discharge to assisted living. They have been notified. (CHRISTIN POST) Initial ECG Impression Date: May 18, 2022 Initial ECG Impression Time: 21:09 Initial ECG Rate: 80 Initial ECG Rhythm: Normal Sinus Initial ECG Intervals: Normal Comment Paced rate in80s, no ST elevation. QRS D 157, QT 431, QTc 466. (CHRISTIN POST) Diagnostic Imaging Diagonstic Imaging: Xray Plain Films/CT/US/NM/MRI: chest Comments NAME: JAYSHREE GORDON REC#: [id number] PT STATUS: REG ER : 1960 PHYSICIAN: CHRISTIN POST ADMIT DATE: 05/18/22/ER Draft Date of Exam:05/18/22 CHEST 1 VIEW, AP/PA ONLY EXAMINATION: Chest 1 view HISTORY: Chest pain COMPARISON: 03/03/2022 FINDINGS: Heart size and pulmonary vasculature are normal. The lungs are clear without consolidation, pleural effusion, or pneumothorax. The osseous structures are intact. A left-sided cardiac device is present. IMPRESSION: 1. No acute radiographic abnormality in the chest. Dictated on workstation # [id number] Dict: 05/18/222133 Trans: 05/18/222135 [facility] [id number] Interpreted by: KORINA MEDEIROS DO Electronically signed by: Reviewed: Reviewed by Me (CHRISTIN POST) Departure Impression Primary Impression: Chest wall pain Additional Impression: ICD (implantable cardioverter-defibrillator) in place Disposition: HOME, SELF-CARE Condition: Stable Departure-Patient Inst. Referrals: [facility] (PCP/Family) Primary Care Physician Patient Instructions: Chest Pain That Is Not Caused by the Heart (DC) Add. Discharge Instructions: Schedule follow up with Dr. Witt at [facility] or other press feeder that implants the [employer] devices that patient has. (none of the press feeder in [place] manage these). Interrogation of the implanted device showed no alerts of cardioversion or defibrillation Continue home medications, as prescribed. Activity as tolerated. Return to Emergency Dept for new/urgent healthcare needs. All discharge instructions reviewed with patient and/or family. Voiced understanding. ATTENDING PHYSICIAN NOTE: I was physically present as attending physician in the emergency department during the care of this patient. I discussed the plan of care and evaluation of this patient with Christin Post NP in brief. I agreed with interrogating the device and cardiology consultation. I did not personally interview or examine this patient. I was not otherwise directly involved in the decision making or delivery of care for this patient. (TONY MCFARLANE MD) Copy Copies To 1: DEVON GIBSON MD Copies To 2: [facility]/CHRISTIN GLEZ May 18, 2022 21:48 TONY MCFARLANE MD May 19, 2022 02:06
[2022-05-18 22:07] LABS: BASOPHILS # (AUTO) 0.1 10^3/uL (0.0-0.1); BASOPHILS % (AUTO) 1 % (0-10); EOSINOPHILS # (AUTO) 0.2 10^3/uL (0.0-0.3); EOSINOPHILS % (AUTO) 4 % (0-10); HEMATOCRIT 40 % (40-54); HEMOGLOBIN 13.5 g/dL (13.3-17.7); LYMPHOCYTES # (AUTO) 2.3 10^3/uL (1.0-4.0); LYMPHOCYTES % (AUTO) 35 % (12-44); MEAN CORPUSCULAR HEMOGLOBIN 31 pg (25-34); MEAN CORPUSCULAR HGB CONC 34 g/dL (32-36); MEAN CORPUSCULAR VOLUME 91 fL (80-99); MONOCYTES # (AUTO) 0.8 10^3/uL (0.0-1.0); MONOCYTES % (AUTO) 12 % (0-12); NEUTROPHILS # (AUTO) 3.2 10^3/uL (1.8-7.8); NEUTROPHILS % (AUTO) 49 % (42-75); PLATELET COUNT 190 10^3/uL (130-400); WHITE BLOOD COUNT 6.5 10^3/uL (4.3-11.0)
[2022-05-18 22:24] LABS: INR 1.1 (0.8-1.4); PROTHROMBIN TIME PATIENT 14.4 SEC (12.2-14.7)
[2022-05-18 22:28] LABS: ALBUMIN 3.9 GM/DL (3.2-4.5); BILIRUBIN,TOTAL 0.3 MG/DL (0.1-1.0); CREATININE SERUM 1.12 MG/DL (0.60-1.30); POTASSIUM 4.1 MMOL/L (3.6-5.0); TOTAL PROTEIN 6.9 GM/DL (6.4-8.2)
[2022-05-18] MEDS ORDERED: meTOprolol 5 MG/5 ML (LOPRESSOR) VIAL IV STA (22:41)
[2022-05-18 23:20] VITALS: BP 166/109
== END 2022-05-18 23:20 | disposition home or self-care (01) ==
LOC: EDUNIT# 20:53 → ER 20:55
DX: I48.91 Unspecified atrial fibrillation (principal); I10 Essential (primary) hypertension; Z95.810 Presence of automatic (implantable) cardiac defibrillator; Z98.61 Coronary angioplasty status; Z79.01 Long term (current) use of anticoagulants; Z79.899 Other long term (current) drug therapy
CPT/HCPCS: 36415; 71045; 80053; 83735; 83874; 84484; 85025; 85610; 85730; 93005; 93041

== ENCOUNTER 2022-10-03 14:52 | Emergency (ER) | payer MEDICAID ==
[~2022-10-03] VITALS: Ht 177.8 cm; Wt 100.0 kg
--- NOTE | 2022-10-03 15:27 | ED Neck-Back Pain/Injury ---
General Chief Complaint: General Problems/Pain Stated Complaint: RIGHT ARM/LEG Nursing Triage Note: PT TO TRIAGE WITH C/O RIGHT ARM AND RIGHT LEG PAIN STARTING AFTER NOON TODAY. PT REPORTS CHRONIC RIGHT SIDE PAIN AFTER A STROKE 03/29/2020 EFFECTING RIGHT SIDE. PT REPORTS TAKING TYLENOL AND SOME OTHER PAIN PILL THAT PT AND DO NOT KNOW THE NAME OF. PT STATES THE PAIN COMES AND GOES SINCE THE STROKE AND THAT TODAY THE PAIN IS WORSE. Source of Information: Patient Exam Limitations: No Limitations History of Present Illness Date Seen by Provider: October 03, 2022 Time Seen by Provider: 15:10 Initial Comments 61-year-old male presents to the ED from the [facility] with complaints of extreme pain on the right side of his body. 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 States that he has intermittent pain in the right side of his body affecting his right arm and right leg. His sister who is with him states that he has these pains approximately 2-3 times a week. He states that the pain is the same, just worse today. He took Tylenol and oxycodone today without relief. Denies fevers, chest pain, shortness of air, abdominal pain, nausea, vomiting, diarrhea. Reports chronic numbness and tingling in his arm and leg, states that has not changed. Denies any new or worsening weakness in the right arm or leg. Patient is coughing during assessment, states that just started today. Allergies and Home Medications Allergies Coded Allergies: No Known Drug Allergies (Unverified , 01/08/21) Patient Home Medication List Home Medication List Reviewed: Yes ALPRAZolam (ALPRAZolam) 0.25 Mg Tablet, 0.25 MG PO Q8H PRN for ANXIETY, (Reported) Entered as Reported by: STANLEY SIERRA on 01/09/21 1051 Acetaminophen (Tylenol Extra Strength) 500 Mg Tablet, 1,000 MG PO TID PRN for PAIN-MILD (1-4), (Reported) Entered as Reported by: STANLEY SIERRA on 01/09/21 1051 Apixaban (Eliquis) 5 Mg Tablet, 5 MG PO BID, (Reported) Entered as Reported by: STANLEY SIERRA on 01/09/21 1051 Aspirin (Aspirin) 81 Mg Tab.chew, 81 MG PO DAILY, (Reported) Entered as Reported by: STANLEY SIERRA on 01/09/21 1051 Atorvastatin Calcium (Atorvastatin Calcium) 40 Mg Tablet, 40 MG PO HS, (Reported) Entered as Reported by: STANLEY SIERRA on 01/09/21 1051 Bisacodyl (Bisacodyl) 10 Mg Supp.rect, 10 MG RC Q48H PRN for CONSTIPATION-3RD LINE, (Reported) Entered as Reported by: STANLEY SIERRA on 01/09/21 1051 Bisoprolol Fumarate (Bisoprolol Fumarate) 5 Mg Tablet, 5 MG PO DAILY, (Reported) Entered as Reported by: STANLEY SIERRA on 01/09/21 1051 Diclofenac Sodium (Voltaren Arthritis Pain) 20 Gm Gel..gram., 1 GM TP QID, (Reported) Entered as Reported by: STANLEY SIERRA on 01/09/21 1051 Duloxetine HCl (Duloxetine HCl) 60 Mg Capsule.dr, 60 MG PO HS, (Reported) Entered as Reported by: STANLEY SIERRA on 01/09/21 1051 Gabapentin (Gabapentin) 800 Mg Tablet, 800 MG PO TID, (Reported) Entered as Reported by: STANLEY SIERRA on 01/09/21 1051 Lactulose (Lactulose) 20 Gm/30 Ml Solution, 15 ML PO BID PRN for CONSTIPATION- 3RD LINE, (Reported) Entered as Reported by: STANLEY SIERRA on 01/09/21 1051 Levetiracetam (Levetiracetam) 500 Mg Tablet, 500 MG PO BID Prescribed by: ILIA JAMES on 01/10/21 1042 Methocarbamol (Methocarbamol) 750 Mg Tablet, 1,500 MG PO Q8H Prescribed by: Livia Bay on 10/03/22 1647 Methylprednisolone (Methylprednisolone Dose Pack) 4 Mg Tab.ds.pk, 4 MG PO UD Prescribed by: Livia Bay on 10/03/22 1647 Oxycodone HCl (Oxycodone HCl) 5 Mg Tablet, 5 MG PO 0700,1300,1800,2300, (Reported) Entered as Reported by: STANLEY SIERRA on 01/09/21 1051 Pantoprazole Sodium (Protonix) 40 Mg Tablet.dr, 40 MG PO DAILY Prescribed by: TONY MACK on 04/03/21 180 Phenazopyridine HCl (Pyridium) 200 Mg Tablet, 1 TAB PO TID PRN for PAIN-MODERATE (5-7) Prescribed by: TONY MACK on 04/03/211756 Sennosides/Docusate Sodium (Senna-S Tablet) 1 Each Tablet, 1 EACH PO BID, (Reported) Entered as Reported by: STANLEY SIERRA on 01/09/21 105 Tamsulosin HCl (Flomax) 0.4 Mg Cap, 0.4 MG PO DAILY Prescribed by: TONY MACK on 04/03/211756 Zinc Oxide (Boudreauxs) 57 Gm Oint...g., 1 APPLIC TP TID PRN for SKIN CHANGES, (Reported) Entered as Reported by: STANLEY SIERRA on 01/09/21 105 Review of Systems Constitutional: see HPI Past Bbcdesf-Ruawef-Jmcprl Hx Patient Social History Smoking Status: Never a Smoker Smokeless Tobacco Frequency: Never a User Use of E-Cig and/or Vaping dev: No Use of E-Cig and/or Vaping Toro: Never a User Substance use?: No Alcohol Use?: No Pt feels they are or have been: No Immunizations Up To Date First/Initial COVID19 Vaccinat: YES Second COVID19 Vaccination Miki: YES Third COVID19 Vaccination Date: YES Seasonal Allergies Seasonal Allergies: No Past Medical History Surgery/Hospitalization HX: PMH; SURGERY; Surgeries: Yes (finger, achillies,) Orthopedic Respiratory: No Cardiac: Yes Atrial Fibrillation, Hypertension Neurological: Yes Stroke Genitourinary: No Gastrointestinal: No Musculoskeletal: Yes Chronic Back Pain Endocrine: No HEENT: No Cancer: No Psychosocial: No Integumentary: No Blood Disorders: No Adverse Reaction/Blood Tranf: No Family Medical History Heart Disease, Cancer, Cerebral Aneurysm Physical Exam Vital Signs Vital Signs - First Documented 10/03/22 10/03/22 15:01 17:08 Temp 36.7 Pulse 80 Resp 19 B/P (MAP) 151/88 (109) Pulse Ox 94 O2 Delivery Room Air Capillary Refill : Less Than 3 Seconds Height, Weight, BMI Height: 5'10.00" Weight: 258lbs. 15.0oz. [id number]; 31.00 BMI Method:Stated General Appearance: WD/WN, Moderate Distress Neck: Normal Inspection, Supple Cardiovascular: Regular Rate, Rhythm Respiratory: Lungs Clear, Normal Breath Sounds, No Accessory Muscle Use, No Respiratory Distress Back: Muscle Spasm (Severe tenderness to palpation of back muscles on right side, no pain on left with palpation), Vertebral Tenderness (Severe vertebral tenderness with palpation) Extremity: Other (Right arm and leg are very tender to touch everywhere I palpate) Neurologic/Psychiatric: Alert, Normal Mood/Affect Skin: Normal Color, Warm/Dry Progress/Results/Core Measures Results/Orders My Orders Orders - LIVIA BAY APRN Sacrum And Coccyx (10/03/22 15:21) Ketorolac Injection (Toradol Injection) (10/03/22 15:30) Orphenadrine Inj (Ed Only) (Norflex Inje (10/03/22 15:30) Dexamethasone Injection (Decadron Inje (10/03/22 15:30) Fentanyl Inj (Sublimaze Injection) (10/03/22 15:30) Ct Cervical Spine Wo (10/03/22 15:21) Ct Thoracic/Lumbar Spine Wo (10/03/22 ) Medications Given in ED Current Medications Medications Dose Ordered Sig/Mauro Route Start Time Stop Time Status Last Admin Dose Admin Dexamethasone Sodium Phosphate 8 mg ONCE ONCE IV 10/03/22 15:30 10/03/22 15:31 DC 10/03/22 15:35 8 MG Fentanyl Citrate 75 mcg ONCE ONCE IVP 10/03/22 15:30 10/03/22 15:31 DC 10/03/22 15:36 75 MCG Ketorolac Tromethamine 30 mg ONCE ONCE IVP 10/03/22 15:30 10/03/22 15:31 DC 10/03/22 15:36 30 MG Orphenadrine Citrate 60 mg ONCE ONCE IV 10/03/22 15:30 10/03/22 15:31 DC 10/03/22 15:36 60 MG Vital Signs/I&O 10/03/22 10/03/22 15:01 17:08 Temp 36.7 Pulse 80 80 Resp 19 15 B/P (MAP) 151/88 (109) 133/87 Pulse Ox 94 O2 Delivery Room Air Room Air Blood Pressure Mean: 109 Progress Progress Note : Progress Note Patient seen and evaluated, in bed, moderate distress. Based on exam and symptoms, work-up initiated including CT of the C-spine, thoracic spine, lumbar spine. X-ray of coccyx and sacrum ordered. Toradol, Norflex, Decadron, fentanyl ordered for pain. Imaging reviewed. CT C-spine shows mild degenerative changes. No acute findings. CT of thoracic and lumbar spine shows no acute or chronic findings. X-ray of sacrum and coccyx shows no acute or chronic findings. Patient reports he is feeling better results discussed with patient and sister. Will discharge with Robaxin and Medrol Dosepak. Discharge instructions and return precautions provided. Diagnostic Imaging Diagonstic Imaging: CT Plain Films/CT/US/NM/MRI: other (Thoracic and lumbar spine) Comments [facility] [place], [place] NAME: JAYSHREE GORDON [facility] REC#: [id number] PT STATUS: REG ER : 1960 PHYSICIAN: LIVIA BAY APRN ADMIT DATE: 10/03/22/ER Signed Date of Exam:10/03/22 CT THORACIC/LUMBAR SPINE WO PROCEDURE: CT thoracic and lumbar spine without contrast. TECHNIQUE: Multiple contiguous axial images were obtained through the thoracic and lumbar spine without the use of intravenous contrast. Sagittal and coronal reformations were then performed. All CT scans use one or more of the following dose optimizing techniques: automated exposure control, MA and/or KvP adjustment based on a patient size and exam type, or iterative reconstruction. INDICATION: Back pain, right leg and right arm pain FINDINGS: The alignment of the thoracic and lumbar spine is normal. Vertebral body heights are normal and no fracture is seen. Facet joints are normal. Disk heights are normal. There is no spinal canal stenosis. Limited views of the soft tissues show no abnormality. The aorta is normal. IMPRESSION: 1. No thoracic or lumbar spine fracture. Dictated by: Dictated on workstation # [id number] Dict: 10/03/22 1630 Trans: 10/03/221706 [facility] [place] [id number] Interpreted by: DAVY CARR DO Electronically signed by: DAVY CARR DO 10/03/22 1707 Diagonstic Imaging: CT Plain Films/CT/US/NM/MRI: c-spine Comments [facility] [place], [place] NAME: JAYSHREE GORDON [facility] REC#: [id number] PT STATUS: REG ER : 1960 PHYSICIAN: LIVIA BAY APRN ADMIT DATE: 10/03/22/ER Signed Date of Exam:10/03/22 CT CERVICAL SPINE WO PROCEDURE: CT cervical spine without contrast. TECHNIQUE: Multiple contiguous axial images were obtained through the cervical spine without the use of intravenous contrast. Sagittal and coronal reformations were then performed. Auto Exposure Controls were utilized during the CT exam to meet ALARA standards for radiation dose reduction. INDICATION: Neck pain. COMPARISON: 01/08/2021. FINDINGS: Alignment of the cervical spine appears normal with no spondylolisthesis. Vertebral body heights are preserved. There is disc height loss at C2-C3 and C3-C4. There is mild height loss at T1 which is stable since the prior exam. No acute fracture is seen. There is mild calcification of the nuchal ligament. There are mild degenerative changes in the cervical spine. No bony fragment or hyperdense fluid collection is seen. IMPRESSION: Mild degenerative changes in the cervical spine with no acute fracture seen. Dictated by: Dictated on workstation # [id number] Dict: 10/03/22 1616 Trans: 10/03/[address] [facility] [id number] Interpreted by: BOUCHRA BHAKTA MD Electronically signed by: BOUCHRA BHAKTA MD 10/03/22 1701 Diagonstic Imaging: Xray Plain Films/CT/US/NM/MRI: other (Sacrum and coccyx) Comments [facility] [place], [place] NAME: JAYSHREE GORDON [facility] REC#: [id number] PT STATUS: REG ER : 1960 PHYSICIAN: LIVIA BAY APRN ADMIT DATE: 10/03/22/ER Signed Date of Exam:10/03/22 SACRUM AND COCCYX EXAMINATION: Coccyx radiograph TECHNIQUE: AP and lateral views of the coccyx obtained. HISTORY: Back pain COMPARISON: None available. FINDINGS: No acute fracture or dislocation of the coccyx. Visualized views of the pelvis are normal. Visualized bowel gas is nondistended. IMPRESSION: No acute osseous findings. Dictated by: Dictated on workstation # [id number] Dict: 10/03/22 1633 Trans: 10/03/22 1634 [facility] [place] [id number] Interpreted by: DAVY CARR DO Electronically signed by: DAVY CARR DO 10/03/22 1634 Departure Impression Primary Impression: Osteoarthritis of neck Qualified Codes: M47.812 - Spondylosis without myelopathy or radiculopathy, cervical region Additional Impressions: Right-sided back pain Qualified Codes: M54.9 - Dorsalgia, unspecified Right arm pain Right leg pain Disposition: HOME, SELF-CARE Condition: Stable Departure-Patient Inst. Decision time for Depature: 16:43 Referrals: [facility] (PCP/Family) Primary Care Physician Patient Instructions: Chronic Pain (DC) Add. Discharge Instructions: Take Robaxin as needed for pain. Take Medrol Dosepak as prescribed. Continue taking your gabapentin and oxycodone. Follow-up with primary care provider. Return for severe pain, bowel or bladder incontinence, or any other new, concerning, or worsening symptoms. All discharge instructions reviewed with patient and/or family. Voiced understanding. Scripts Methocarbamol (Methocarbamol) 750 Mg Tablet 1500 MG PO Q8H for Back Pain, #21 TAB 0 Refills Prov: LIVIA BAY APRN 10/03/22 Methylprednisolone (Methylprednisolone Dose Pack) 4 Mg Tab.ds.pk 4 MG PO UD for 6 Days, #21 PKG 0 Refills PER DOSE PACK INSTRUCTIONS Prov: LIVIA BAY APRN 10/03/22 LIVIA BAY APRN October 03, 2022 15:27
[2022-10-03] MEDS ORDERED: ORPHENADRINE 60 MG/2 ML (NORFLEX) AMP (ED ONLY) IV ONE (15:30)
[2022-10-03] MEDS ORDERED: KETOROLAC 30 MG/ML VIAL IVP ONE (15:30)
[2022-10-03] MEDS ORDERED: fentaNYL INJ 100 MCG/2 ML AMP IVP ONE (15:30)
--- NOTE | 2022-10-03 16:25 | Diagnostic Imaging Report ---
PROCEDURE: CT cervical spine without contrast. TECHNIQUE: Multiple contiguous axial images were obtained through the cervical spine without the use of intravenous contrast. Sagittal and coronal reformations were then performed. Auto Exposure Controls were utilized during the CT exam to meet ALARA standards for radiation dose reduction. INDICATION: Neck pain. COMPARISON: 01/08/2021. FINDINGS: Alignment of the cervical spine appears normal with no spondylolisthesis. Vertebral body heights are preserved. There is disc height loss at C2-C3 and C3-C4. There is mild height loss at T1 which is stable since the prior exam. No acute fracture is seen. There is mild calcification of the nuchal ligament. There are mild degenerative changes in the cervical spine. No bony fragment or hyperdense fluid collection is seen. IMPRESSION: Mild degenerative changes in the cervical spine with no acute fracture seen. Dictated by: Dictated on workstation # [id number]
--- NOTE | 2022-10-03 16:33 | Diagnostic Imaging Report ---
PROCEDURE: CT thoracic and lumbar spine without contrast. TECHNIQUE: Multiple contiguous axial images were obtained through the thoracic and lumbar spine without the use of intravenous contrast. Sagittal and coronal reformations were then performed. All CT scans use one or more of the following dose optimizing techniques: automated exposure control, MA and/or KvP adjustment based on a patient size and exam type, or iterative reconstruction. INDICATION: Back pain, right leg and right arm pain FINDINGS: The alignment of the thoracic and lumbar spine is normal. Vertebral body heights are normal and no fracture is seen. Facet joints are normal. Disk heights are normal. There is no spinal canal stenosis. Limited views of the soft tissues show no abnormality. The aorta is normal. IMPRESSION: 1. No thoracic or lumbar spine fracture. Dictated by: Dictated on workstation # [id number]
--- NOTE | 2022-10-03 16:35 | Diagnostic Imaging Report ---
EXAMINATION: Coccyx radiograph TECHNIQUE: AP and lateral views of the coccyx obtained. HISTORY: Back pain COMPARISON: None available. FINDINGS: No acute fracture or dislocation of the coccyx. Visualized views of the pelvis are normal. Visualized bowel gas is nondistended. IMPRESSION: No acute osseous findings. Dictated by: Dictated on workstation # [id number]
[2022-10-03] MEDS ORDERED: METH-732 PO (16:47)
[2022-10-03] MEDS ORDERED: METH4TAB10 PO (16:47)
[2022-10-03 17:08] VITALS: BP 133/87
== END 2022-10-03 17:11 | disposition home or self-care (01) ==
LOC: EDUNIT# 14:52 → ER 14:54
DX: M19.09 Primary osteoarthritis, other specified site (principal); M54.9 Dorsalgia, unspecified; M79.604 Pain in right leg
CPT/HCPCS: 72125; 72128; 72131; 72220; 99281

== ENCOUNTER → 2022-11-20 | Outpatient (RCR) | payer MEDICAID ==
[~2022-11-20] MED LIST changes: +METH-732 PO; +METH4TAB10 PO
== END | disposition home or self-care (01) ==
PROVIDERS: ATTEND Nurse Practitioner Community Health
DX: I69.322 Dysarthria following cerebral infarction (principal); I69.320 Aphasia following cerebral infarction

== ENCOUNTER 2022-12-11 14:14 | Outpatient (RCR) | payer MEDICAID | END 2022-12-18 14:52 | disposition home or self-care (01) | PROVIDERS: ATTEND Nurse Practitioner Community Health | DX: F80.1 Expressive language disorder (principal); Z86.73 Personal history of transient ischemic attack (TIA), and cerebral infarction without residual deficits ==

== ENCOUNTER 2022-12-24 18:31 | Observation (INO) | payer MEDICAID ==
[~2022-12-24] VITALS: Ht 177.8 cm; Wt 110.8 kg
[~2022-12-24 18:31] MED LIST changes: +BISO10TA6 PO
--- NOTE | 2022-12-24 18:54 | ED Neurological Problem ---
General Chief Complaint: Neurological Problems Stated Complaint: WEAKNESS Nursing Triage Note: pt presents to ed via ems for c/o right sided weakness. pt has hx of CVAs with right-sided deficit residuals. pt and facility believe the deficits have worsened throughout the day. pt usually gets around with walker but was unable to do so as day progressed. pt also has insomnia and hasn't slept in over 24 hours. Source: patient Exam Limitations: no limitations (NORMAN AVILA) History of Present Illness Date Seen by Provider: Dec 24, 2022 Time Seen by Provider: 18:49 Initial Comments Patient is a 62-year-old male who presents to ED for worsening right-sided weakness. History of CVAs with previous right-sided deficits. Patient believes that his symptoms became worse today. This evening he was walking seem to be more sluggish dragging his right leg. Seem to be more up and about this morning. Patient does use a walker. Patient did not sleep over the past 24 hours. Currently in PT and OT. He has had deficits to his upper and right lower extremities. Patient states his right side is weak but cannot recall if its worse today. Denies of any chest pain, shortness of breath, vomiting, diarrhea, headache, dizziness, visual change. Patient with aphasia. (NORMAN AVILA) Allergies and Home Medications Allergies Coded Allergies: No Known Drug Allergies (Unverified , 01/08/21) Patient Home Medication List Home Medication List Reviewed: Yes (NORMAN AVILA) Acetaminophen (Tylenol Extra Strength) 500 Mg Tablet, 1,000 MG PO TID PRN for PAIN-MILD (1-4), (Reported) Entered as Reported by: STANLEY SIERRA on 01/09/21 1051 Last Action: Reviewed Amlodipine Besylate (Amlodipine Besylate) 5 Mg Tablet, 5 MG PO DAILY Prescribed by: HILL KLEIN on 12/25/22 1323 Apixaban (Eliquis) 5 Mg Tablet, 5 MG PO BID, (Reported) Entered as Reported by: STANLEY SIERRA on 01/09/21 105 Last Action: Reviewed Aspirin (Aspirin) 81 Mg Tab.chew, 81 MG PO DAILY, (Reported) Entered as Reported by: STANLEY SIERRA on 01/09/21 1051 Last Action: Reviewed Atorvastatin Calcium (Atorvastatin Calcium) 40 Mg Tablet, 40 MG PO HS, (Reported) Entered as Reported by: STANLEY SIERRA on 01/09/21 105 Last Action: Reviewed Bisacodyl (Bisacodyl) 10 Mg Supp.rect, 10 MG RC Q48H PRN for CONSTIPATION-3RD LINE, (Reported) Entered as Reported by: STANLEY SIERRA on 01/09/211050 Last Action: Reviewed Bisoprolol Fumarate (Bisoprolol Fumarate) 10 Mg Tablet, 10 MG PO HS, (Reported) Entered as Reported by: LUCY SCHAFFER on 12/25/22926 Last Action: New Order Duloxetine HCl (Duloxetine HCl) 60 Mg Capsule.dr, 60 MG PO HS, (Reported) Entered as Reported by: STANLEY SIERRA on 01/09/211050 Last Action: Converted Gabapentin (Gabapentin) 600 Mg Tablet, 600 MG PO TID, (Reported) Entered as Reported by: LUCY SCHAFFER on 12/25/22926 Last Action: New Order Lactulose (Lactulose) 20 Gm/30 Ml Solution, 15 ML PO BID PRN for CONSTIPATION- 3RD LINE, (Reported) Entered as Reported by: STANLEY SIERRA on 01/09/211050 Last Action: Reviewed Levetiracetam (Levetiracetam) 500 Mg Tablet, 500 MG PO BID Prescribed by: ILIA JAMES on 01/10/21 104 Last Action: Reviewed Lisinopril (Lisinopril) 40 Mg Tablet, 40 MG PO DAILY, (Reported) Entered as Reported by: LUCY SCHAFFER on 12/25/22926 Last Action: Continued Methocarbamol (Methocarbamol) 750 Mg Tablet, 1,500 MG PO Q8H Prescribed by: Livia Hooker on 10/03/22 1647 Last Action: Reviewed Oxycodone HCl (Oxycodone HCl) 5 Mg Tablet, 5 MG PO 0700,1300,1800,2300, (Reported) Entered as Reported by: STANLEY SIERRA on 01/09/211050 Last Action: Reviewed Pantoprazole Sodium (Protonix) 40 Mg Tablet.dr, 40 MG PO DAILY Prescribed by: TONY MACK on 04/03/21 1809 Last Action: Reviewed Sennosides/Docusate Sodium (Senna-S Tablet) 1 Each Tablet, 1 EACH PO BID, (Reported) Entered as Reported by: STANLEY SIERRA on 01/09/211050 Last Action: Reviewed Tamsulosin HCl (Flomax) 0.4 Mg Cap, 0.4 MG PO DAILY Prescribed by: TONY MACK on 04/03/211756 Last Action: Continued Discontinued Medications ALPRAZolam (ALPRAZolam) 0.25 Mg Tablet, 0.25 MG PO Q8H PRN for ANXIETY, (Reported) Discontinued Reason: No Longer Taking Entered as Reported by: STANLEY SIERRA on 01/09/211050 Last Action: Discontinued Bisoprolol Fumarate (Bisoprolol Fumarate) 5 Mg Tablet, 5 MG PO DAILY, (Reported) Discontinued Reason: No Longer Taking Entered as Reported by: STANLEY SIERRA on 01/09/211050 Last Action: Discontinued Diclofenac Sodium (Voltaren Arthritis Pain) 20 Gm Gel..gram., 1 GM TP QID, (Reported) Discontinued Reason: No Longer Taking Entered as Reported by: STANLEY SIERRA on 01/09/211050 Last Action: Discontinued Gabapentin (Gabapentin) 800 Mg Tablet, 800 MG PO TID, (Reported) Discontinued Reason: No Longer Taking Entered as Reported by: STANLEY SIERRA on 01/09/211050 Last Action: Discontinued Methylprednisolone (Methylprednisolone Dose Pack) 4 Mg Tab.ds.pk, 4 MG PO UD Discontinued Reason: No Longer Taking Prescribed by: Livia Hooker on 10/03/22 164 Last Action: Discontinued Phenazopyridine HCl (Pyridium) 200 Mg Tablet, 1 TAB PO TID PRN for PAIN-MODERATE (5-7) Discontinued Reason: No Longer Taking Prescribed by: TONY MACK on 04/03/211756 Last Action: Discontinued Zinc Oxide (Boudreauxs) 57 Gm Oint...g., 1 APPLIC TP TID PRN for SKIN CHANGES, (Reported) Discontinued Reason: No Longer Taking Entered as Reported by: STANLEY SIERRA on 01/09/211050 Last Action: Discontinued Review of Systems Review of Systems Constitutional: No chills, No diaphoresis, No fever, No malaise, No weakness Eyes: Denies Blurred Vision, Denies Drainage, Denies Decreased Acuity Ears, Nose, Mouth, Throat: denies ear pain, denies ear discharge Respiratory: No cough, No dyspnea on exertion Cardiovascular: No chest pain Gastrointestinal: No abdominal pain, No diarrhea, No nausea, No vomiting Genitourinary: No decreased output, No discharge Musculoskeletal: No back pain, No joint pain, No joint swelling; muscle pain, muscle weakness Skin: No change in color, No change in hair/nails (NORMAN AVILA) All Other Systems Reviewed Negative Unless Noted: Yes (NORMAN AVILA) Past Yixygkb-Pvjonq-Knlgsm Hx Patient Social History Tobacco Use?: No Substance use?: No Alcohol Use?: No Pt feels they are or have been: No (NORMAN AVILA) Immunizations Up To Date First/Initial COVID19 Vaccinat: YES Second COVID19 Vaccination Miki: YES Third COVID19 Vaccination Date: YES (NORMAN AVILA) Seasonal Allergies Seasonal Allergies: No (NORMAN AVILA) Past Medical History Surgery/Hospitalization HX: PMH; SURGERY; Surgeries: Yes (finger, achillies,) Orthopedic Respiratory: No Cardiac: Yes Atrial Fibrillation, Hypertension Neurological: Yes Stroke Genitourinary: No Gastrointestinal: No Musculoskeletal: Yes Chronic Back Pain Endocrine: No HEENT: No Cancer: No Psychosocial: No Integumentary: No Blood Disorders: No Adverse Reaction/Blood Tranf: No (NORMAN AVILA) Family Medical History Heart Disease, Cancer, Cerebral Aneurysm (NORMAN AVILA) Physical Exam Vital Signs Vital Signs - First Documented 12/24/22 18:34 Temp 36.4 Pulse 80 Resp 18 B/P (MAP) 136/106 (116) Pulse Ox 95 (WILMER,MAXINE K DO) Vital Signs Capillary Refill : Less Than 3 Seconds (NORMAN AVILA) Height, Weight, BMI Height: 5'10.00" Weight: 258lbs. 15.0oz. 117.349939ks; 31.00 BMI Method:Stated General Appearance: WD/WN, no apparent distress HEENT: PERRL/EOMI, normal ENT inspection, TMs normal, other (Right-sided facial droop) Neck: non-tender, full range of motion, supple Respiratory: chest non-tender, lungs clear, normal breath sounds, no respiratory distress, no accessory muscle use Cardiovascular: regular rate, rhythm, no edema, no gallop, no JVD Gastrointestinal: normal bowel sounds, non tender, soft, no organomegaly Back: normal inspection, no CVA tenderness Extremities: other (Weakness right upper and lower extremity. Limb ataxia right upper and lower leg) Neurologic/Psychiatric: alert Crainal Nerves: other (Aphasia, right-sided facial) Coordination/Gait: ABN nose to finger (R) Motor/Sensory: weak motor strength RUE, weak motor strength RLE Skin: normal color, warm/dry (NORMAN AVILA) Stroke Onset of Symptoms Onset of Symptoms: No Symptoms onset unknown: No (NORMAN AVILA) NIH Stroke Scale Assessment Level of Consciousness: 0=Alert (0), Level of Consciousness-Questions: 0=Answers both month/age (0), LOC Commands: 0=Performs both tasks (0), Gaze: Partial Gaze Palsy (1), Visual Castillo: 0=No visual loss (0), Facial Movement (Facial Paresis): 1=Minor paralysis (1), Motor Function-Arms Right: 2=Some effort/gravity (2), Motor Function-Arms Left: 0=No drift (0), Motor Function- Legs Right: 1=Drift (1), Motor Function-Legs Left: 0=No drift (0), Limb Ataxia: 1=Present in one limb (1), Sensory: 0=Normal:no loss (0), Best Language: 1=Mild to moderat aphasia (1), Dysarthria: 1=Mild to moderate loss (1), Extinction & Inattention: 0=No abnormality (0), Total: 8 Stroke Thrombolytic Exclusion Age 18 or Over: Yes Acute intenal hemorrhage: No History of CVA: Yes Uncontrolled Coagulation Defec: No Intracranial Hemorrhage: No Severe Hypertension: No GI or Bleed: No Subarachnoid Hemorrhage: No Intracranial Neoplasm/Aneurysm: No Oral Anticoagulants: No Surgery or Trauma: No Puncture of Non-Compressible V: No Recent CPR: No Diabetic Hemorrhagic Retinopat: No Organ Biopsy: No Recent Obstetric Delivery: No Glucose: No Significant Hepatic Dysfunctio: No NIH Stoke Scale >22: No Bacterial Endocarditis: No Pericarditis: No Improving Symptoms: No Platelets: No (NORMAN AVILA) Progress/Results/Core Measures Results/Orders Lab Results Laboratory Tests Test 12/24/22 18:45 12/24/22 19:23 12/24/22 20:22 12/24/22 20:38 Range/Units White Blood Count 8.3 4.3-11.0 10^3/uL Red Blood Count 4.25 L 4.30-5.52 10^6/uL Hemoglobin 13.3 13.3-17.7 g/dL Hematocrit 40 40-54 % Mean Corpuscular Volume 94 80-99 fL Mean Corpuscular Hemoglobin 31 25-34 pg Mean Corpuscular Hemoglobin Concent 33 32-36 g/dL Red Cell Distribution Width 14.0 10.0-14.5 % Platelet Count 204 130-400 10^3/uL Mean Platelet Volume 10.2 9.0-12.2 fL Immature Granulocyte % (Auto) 0 % Neutrophils (%) (Auto) 61 42-75 % Lymphocytes (%) (Auto) 23 12-44 % Monocytes (%) (Auto) 12 0-12 % Eosinophils (%) (Auto) 3 0-10 % Basophils (%) (Auto) 1 0-10 % Neutrophils # (Auto) 5.0 1.8-7.8 10^3/uL Lymphocytes # (Auto) 1.9 1.0-4.0 10^3/uL Monocytes # (Auto) 1.0 0.0-1.0 10^3/uL Eosinophils # (Auto) 0.2 0.0-0.3 10^3/uL Basophils # (Auto) 0.0 0.0-0.1 10^3/uL Immature Granulocyte # (Auto) 0.0 0.0-0.1 10^3/uL Prothrombin Time 15.2 H 12.2-14.7 SEC INR Comment 1.2 0.8-1.4 Activated Partial Thromboplast Time 36 H 24-35 SEC Sodium Level 142 135-145 MMOL/L Potassium Level 4.2 3.6-5.0 MMOL/L Chloride Level 108 H 98-107 MMOL/L Carbon Dioxide Level 23 21-32 MMOL/L Anion Gap 11 5-14 MMOL/L Blood Urea Nitrogen 12 7-18 MG/DL Creatinine 1.19 0.60-1.30 MG/DL Estimat Glomerular Filtration Rate 69 BUN/Creatinine Ratio 10 Glucose Level 61 L 70-105 MG/DL Calcium Level 9.2 8.5-10.1 MG/DL Corrected Calcium 9.4 8.5-10.1 MG/DL Total Bilirubin 0.4 0.1-1.0 MG/DL Aspartate Amino Transf (AST/SGOT) 25 5-34 U/L Alanine Aminotransferase (ALT/SGPT) 28 0-55 U/L Alkaline Phosphatase 66 40-136 U/L Troponin I < 0.028 <0.028 NG/ML Total Protein 6.8 6.4-8.2 GM/DL Albumin 3.8 3.2-4.5 GM/DL Glucometer 63 L 53 *L 70-110 MG/DL Urine Color YELLOW Urine Clarity CLEAR Urine pH 6.5 5-9 Urine Specific Terrell 1.005 L 1.016-1.022 Urine Protein NEGATIVE NEGATIVE Urine Glucose (UA) 3+ H NEGATIVE Urine Ketones NEGATIVE NEGATIVE Urine Nitrite NEGATIVE NEGATIVE Urine Bilirubin NEGATIVE NEGATIVE Urine Urobilinogen 0.2 < = 1.0 MG/DL Urine Leukocyte Esterase NEGATIVE NEGATIVE Urine RBC (Auto) NEGATIVE NEGATIVE Urine RBC NONE /HPF Urine WBC NONE /HPF Urine Squamous Epithelial Cells NONE /HPF Urine Crystals NONE /LPF Urine Bacteria NEGATIVE /HPF Urine Casts NONE /LPF Urine Mucus NEGATIVE /LPF Urine Culture Indicated NO Test 12/24/22 20:50 12/24/22 21:11 Range/Units Glucometer 79 136 H 70-110 MG/DL (MAXINE GUILLEN DO) Medications Given in ED Current Medications Medications Dose Ordered Sig/Mauro Route Start Time Stop Time Status Last Admin Dose Admin Dextrose 25 ml ONCE ONCE IV 12/24/22 19:30 12/24/22 19:31 DC 12/24/22 20:24 25 ML Dextrose 25 ml ONCE ONCE IV 12/24/22 21:00 12/24/22 21:02 DC 12/24/22 20:55 25 ML Iohexol 100 ml ONCE ONCE IV 12/24/22 19:30 12/24/22 19:31 DC 12/24/22 19:57 75 ML Iohexol 100 ml ONCE ONCE IV 12/24/22 20:00 12/24/22 20:01 DC 12/24/22 20:00 75 ML Sodium Chloride 100 ml ONCE ONCE IV 12/24/22 19:30 12/24/22 19:31 DC 12/24/22 19:57 100 ML (MAXINE GUILLEN ) Vital Signs/I&O 12/24/22 18:34 Temp 36.4 Pulse 80 Resp 18 B/P (MAP) 136/106 (116) Pulse Ox 95 (MAXINE GUILLEN DO) Blood Pressure Mean: 116 Comment Ventricular paced 80 bpm, QRS duration 150 MS, QTc 493 MS (NOR[place] AVILA) Departure Communication (PCP) Patient is a 62-year-old male who presents ED from [facility] by EMS for increased weakness. Patient suffered a CVA in March 2020. Patient was sun sferred to [facility] patient is currently a resident at [facility]. Typically ambulates with a walker. Currently in speech therapy. Has received multiple rounds of PT and OT this evening they noted progressive weakness throughout the afternoon and evening. Patient was dragging his right leg. Seem to have more weakness on his right side. On arrival patient with expressive aphasia. Does have paralysis of the right side of face. Did have notable weakness of his right arm with a mild drift to the right lower leg. Sensation appears to be intact. NIH was 8 initially. Stroke work-up was initiated. Initial CT scan of his head did not note any acute abnormality after talking to the radiologist. Generalized lab work was ordered. Does have a pacemaker. EKG showed ventricular pacemaker. Patient hematology and chemistry was grossly unremarkable. Normal troponin. Chest x-ray was negative for pneumonia. Urinalysis straight cath was negative for infection. His initial blood sugar was 61. After reviewing patient's records did not note any insulin use. Did have patient drink 2 cups of juice. Blood sugar decreased to 53. Patient r eceived a half an amp of D50 with only improvement to 79. Received the other half with improvement to 136. CT angio of the head and neck was ordered which did not note any acute findings. Chronic findings were noted after talking with the radiologist. Contacted and talk to their neurologist Dr. Wetzel. Patient is not a candidate for any type of intervention at this time. Patient's symptoms could be exacerbated by his hypoglycemia versus insomnia. Patient did not sleep at all according to staff at [facility] as last night. Neurologist recommended stroke work-up and admission at our facility for potential stroke rule out with MRI. Did not recommend transfer. Patient was discussed with hospitalist Dr. Bender who agreed to accept patient. Attending Dr. James (NORMAN AVILA) Impression Primary Impression: Right sided weakness Additional Impression: Hypoglycemia Disposition: ADMITTED INPATIENT Condition: Stable Admissions Decision to Admit Reason: Admit from ER (General) Decision to Admit/Date: Dec 24, 2022 Time/Decision to Admit Time: 20:55 (NORMAN AVILA) Departure-Patient Inst. Referrals: [facility] [place] ([place]P/Family) Primary Care Physician Scripts Amlodipine Besylate (Amlodipine Besylate) 5 Mg Tablet 5 MG PO DAILY, #30 TAB Prov: HILL KLEIN MD 12/25/22 ATTENDING PHYSICIAN NOTE: I WAS PHYSICALLY PRESENT ER PHYSICIAN, BUT I WAS NOT INVOLVED IN ANY DECISION MAKING OR ANY CARE OF THIS PATIENT AND I AM NOT COLLABORATING PHYSICIAN. (MAXINE GUILLEN DO) [place] AVILA Dec 24, 2022 18:54 MAXINE GUILLEN DO Dec 25, 2022 02:02
[2022-12-24 18:59] LABS: BASOPHILS % (AUTO) 1 % (0-10); EOSINOPHILS # (AUTO) 0.2 10^3/uL (0.0-0.3); EOSINOPHILS % (AUTO) 3 % (0-10); HEMATOCRIT 40 % (40-54); HEMOGLOBIN 13.3 g/dL (13.3-17.7); LYMPHOCYTES # (AUTO) 1.9 10^3/uL (1.0-4.0); LYMPHOCYTES % (AUTO) 23 % (12-44); MEAN CORPUSCULAR HEMOGLOBIN 31 pg (25-34); MEAN CORPUSCULAR HGB CONC 33 g/dL (32-36); MEAN CORPUSCULAR VOLUME 94 fL (80-99); MEAN PLATELET VOLUME 10.2 fL (9.0-12.2); MONOCYTES % (AUTO) 12 % (0-12); NEUTROPHILS % (AUTO) 61 % (42-75); PLATELET COUNT 204 10^3/uL (130-400); WHITE BLOOD COUNT 8.3 10^3/uL (4.3-11.0)
[2022-12-24 19:12] LABS: ALBUMIN 3.8 GM/DL (3.2-4.5); INR 1.2 (0.8-1.4); PROTHROMBIN TIME PATIENT 15.2 SEC (12.2-14.7)
[2022-12-24 19:13] LABS: CHLORIDE 108 MMOL/L (98-107); POTASSIUM 4.2 MMOL/L (3.6-5.0); SODIUM 142 MMOL/L (135-145)
[2022-12-24 19:14] LABS: CALCIUM 9.2 MG/DL (8.5-10.1)
[2022-12-24 19:15] LABS: GLUCOSE 61 MG/DL (70-105); TOTAL PROTEIN 6.8 GM/DL (6.4-8.2)
[2022-12-24 19:16] LABS: CARBON DIOXIDE 23 MMOL/L (21-32)
[2022-12-24 19:17] LABS: BILIRUBIN,TOTAL 0.4 MG/DL (0.1-1.0)
[2022-12-24 19:19] LABS: ALKALINE PHOSPHATASE 66 U/L (40-136); CREATININE SERUM 1.19 MG/DL (0.60-1.30); GFR ESTIMATED 69
[2022-12-24 19:20] LABS: BUN/CREATININE RATIO 10
[2022-12-24 19:22] LABS: ALANINE AMINOTRANSFERASE 28 U/L (0-55)
--- NOTE | 2022-12-24 19:28 | Diagnostic Imaging Report ---
CLINICAL INDICATION: Patient with chest pain and right-sided weakness. EXAM: Portable chest x-ray upright view. COMPARISON: Chest x-ray dated 05/18/2022. FINDINGS: Lungs/pleura: Lungs are clear. There is no pneumothorax. There is no pleural effusion. Mediastinum: Unremarkable. Pulmonary vasculature: Unremarkable. Heart: Heart size is within normal limits. Again seen is cardiac pacemaker/AICD overlying the left chest with two leads projecting over the heart which appears intact. Bones/extrathoracic soft tissue: There are degenerative spurs involving the thoracic spine. IMPRESSION: There is no radiographic evidence of acute cardiopulmonary process. Dictated by: Dictated on workstation # [id number]
[2022-12-24] MEDS ORDERED: DEXTROSE 50% 50 ML (IMS) SYR IV ONE ×2 (19:30→21:00)
[2022-12-24] MEDS ORDERED: NS 100 ML (IVPB) BAG IV ONE (19:30)
[2022-12-24] MEDS ORDERED: IOHEXOL 350 MG/ML 100 ML (OMNIPAQUE 350) VIAL IV ONE ×2 (19:30→20:00)
--- NOTE | 2022-12-24 19:38 | Diagnostic Imaging Report ---
PROCEDURE: CT head w/o r/o stroke. TECHNIQUE: Multiple contiguous axial images were obtained through the brain without the use of intravenous contrast. Auto Exposure Controls were utilized during the CT exam to meet ALARA standards for radiation dose reduction. INDICATION: Right-sided weakness, history of strokes, history of right-sided deficits. Appears to have worsened. COMPARISON: 01/08/2021. FINDINGS: There is a large left hemisphere encephalomalacia in the frontal, temporal, parietal and occipital lobes consistent with an old infarct, appears similar in distribution to December 2020. There is ex vacuo dilatation of the left ventricle with slight leftward deviation of the septum. Ventricles and cortical sulci are prominent, most likely due to generalized parenchymal volume loss. This appears stable since the prior exam. There are additional areas of hypoattenuation of the white matter which are likely from chronic microvascular disease with an old lacunar infarct in the right basal ganglia. No acute intracranial hemorrhage is seen. No CT evidence of acute territorial ischemia is appreciated. There does appear to be mild encephalomalacia in the right occipital lobe as well, similar to the prior exam. The calvarium appears intact and visualized paranasal sinuses are clear. IMPRESSION: 1. No acute intracranial hemorrhage or CT findings of acute territorial ischemia. 2. Chronic findings including encephalomalacia in the left hemisphere from old infarct with other areas of chronic vascular disease. Findings discussed with JAHAIRA Becerra by Dr. Orozco, on 12/24/2022 7:07 PM. Dictated by: Dictated on workstation # [id number]
[2022-12-24] MEDS ORDERED: HOLD METFORMIN - RECEIVED CONTRAST 20 ML VIAL IV SCH (20:00)
--- NOTE | 2022-12-24 20:33 | Diagnostic Imaging Report ---
PROCEDURE: CT angiography of the head and CT angiography of the neck with and without contrast. TECHNIQUE: Contiguous noncontrast images were obtained from the skull base through the vertex. After intravenous contrast administration, helical CT angiography of the neck was performed. Source data was reformatted into 3D MIP projections. Delayed post contrast acquisition was also obtained. Auto Exposure Controls were utilized during the CT exam to meet ALARA standards for radiation dose reduction. INDICATION: Worsening right-sided weakness. COMPARISON: CTA from 01/08/2021. FINDINGS: The postcontrast images demonstrate the encephalomalacia seen on the precontrast images but no enhancing lesion is seen. The right common carotid artery demonstrates mild atherosclerosis at the bifurcation. There is mild atherosclerosis in the cavernous ICA. No high-grade stenosis or occlusion is seen. The left ICA demonstrates mild atherosclerosis. There is atherosclerosis at the bifurcation. The left common carotid artery appears patent. The vertebral arteries are codominant. They appear to be widely patent. The anterior communicating artery is seen. The anterior cerebral arteries appear normal. The right middle cerebral artery appears patent. The left middle cerebral artery demonstrates diminutive flow distally at the M2 segment and beyond, with no abrupt occlusion or thrombus appreciated. The right posterior communicating artery is faintly visible. The left is not well seen. The left posterior cerebral artery appears occluded with poor flow, similar to 202. The superior cerebellar arteries are patent. The basilar artery demonstrates focal stenosis of about 75%, stable since the prior exam. Soft tissues about the neck demonstrate no acute abnormality. There are degenerative changes in the spine. There is gastroesophageal reflux in the upper esophagus. IMPRESSION: 1. Diminutive vessels in the left MCA territory, with no focal occlusion or thrombus seen. This appears similar to 2020. 2. 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 3. 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 4. Redemonstrated encephalomalacia, particularly in the left hemisphere. 5. Gastroesophageal reflux. Findings discussed with JAHAIRA Becerra by Dr. Orozco, on 12/24/2022 8:25 PM. Dictated by: Dictated on workstation # [id number]
[2022-12-24 21:02] LABS: CLARITY,URINE CLEAR; COLOR,URINE YELLOW; GLUCOSE, URINE (UA) 3+ (NEGATIVE); PH,URINE 6.5 (5-9); PROTEIN,URINE NEGATIVE (NEGATIVE)
[2022-12-24 21:03] LABS: BILIRUBIN,URINE NEGATIVE (NEGATIVE); KETONES,URINE NEGATIVE (NEGATIVE); LEUKOCYTE ESTERASE ,URINE NEGATIVE (NEGATIVE); NITRITE,URINE NEGATIVE (NEGATIVE)
[2022-12-24 21:04] LABS: BACTERIA,URINE NEGATIVE /HPF
--- NOTE | 2022-12-24 21:39 | History & Physical ---
NADINE FRANCO MD 12/24/22 2139: HPI History of Present Illness: CC: Right-sided weakness Patient was brought in from the shelter for new right-sided weakness that started today. Of note patient has a history of stroke with previous right- sided deficits but it was noted by the shelter staff that he seemed to be dragging his right leg more. Patient does ambulate with a walker at baseline. He was ultimately brought in for stroke work-up. Stroke related deficits include expressive aphasia at baseline for which patient gets speech therapy at the shelter. Patient does feel his speech is worse than usual. He is also involved with PT and OT at the shelter. He does feel like his right side has been weaker than usual today. He otherwise denies any chest pain, shortness of breath, vomiting, diarrhea, nausea, headache, dizziness, visual change, dysuria, rash. He does note that he has been having difficulty sleeping and does not remember the last time he slept. Of note, patient did have significant difficulty with answering questions, unclear if this is his baseline. Patient did not come with paperwork from the shelter. He does note that his Sister Anabela is pretty aware of his baseline. Patient denies any smoking, alcohol or drug use. States he has been compliant with his medications. Source: patient Date seen by provider: Dec 24, 2022 Time Seen by Provider: 21:32 Attending Physician [place]/[facility] PCP Admitting Physician: Dr. Hill Yang Attending Physician: Dr. Hill Yang Consult Neurology Date of Admission 12/24/2022 Home Medications Home Medications Reviewed patient Home Medication Reconciliation performed by pharmacy medication reconciliations fiber technician and/or nursing. Patients Allergies have been reviewed. Allergies Coded Allergies: No Known Drug Allergies (Unverified , 01/08/21) QOC-Ankkny-Ucvvuo Hx Patient Social History Smoking Status: Never a Smoker 2nd Hand Smoke Exposure: No Recent Hopitalizations: No Alcohol Use?: No Immunizations Up To Date First/Initial COVID19 Vaccinat: YES Second COVID19 Vaccination Miki: YES Third COVID19 Vaccination Date: YES Past Medical History Atrial fibrillation, pacemaker in place Stroke with residual right-sided deficits Seizures Family Medical History Significant Family History: Heart Disease, Cancer, Cerebral Aneurysm Review of Systems ([facility]) Constitutional: No chills, No dizziness, No fever; weakness EENTM: No blurred vision Respiratory: No cough, No short of breath Cardiovascular: No chest pain, No edema, No palpitations Gastrointestinal: No abdominal pain, No constipation, No diarrhea, No dysphagia, No loss of appetite, No nausea, No vomiting Genitourinary: No dysuria Musculoskeletal: No joint pain, No muscle pain Skin: No rash Psychiatric/Neurological: Pre-Existing Deficit, Weakness Reviewed Test Results Reviewed Test Results Lab Laboratory Tests 12/24/22 18:45 Laboratory Tests 12/24/22 18:45: Red Blood Count 4.25L, Prothrombin Time 15.2H, Activated Partial Thromboplast Time 36H, Chloride Level 108H, Glucose Level 61L 12/24/22 19:23: Glucometer 63L 12/24/22 20:22: Glucometer 53*L 12/24/22 20:38: Urine Specific [place] 1.005L, Urine Glucose (UA) 3+H 12/24/22 20:50: 12/24/22 21:11: Glucometer 136H Radiology Chest x-ray: IMPRESSION: There is no radiographic evidence of acute cardiopulmonary process. CT head: IMPRESSION: 1. No acute intracranial hemorrhage or CT findings of acute territorial ischemia. 2. Chronic findings including encephalomalacia in the left hemisphere from old infarct with other areas of chronic vascular disease. CTA head and neck: IMPRESSION: 1. Diminutive vessels in the left MCA territory, with no focal occlusion or thrombus seen. This appears similar to 2020. 2. 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 3. 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 4. Redemonstrated encephalomalacia, particularly in the left hemisphere. 5. Gastroesophageal reflux. Physical Exam-([facility]) Physical Exam Vital Signs VS - Last 72 Hours, by Label 12/24/22 18:34 Temp 36.4 Pulse 80 Resp 18 B/P (MAP) 136/106 (116) Pulse Ox 95 Capillary Refill : Less Than 3 Seconds General Appearance: no apparent distress HEENT: pharynx normal, other (Pinpoint pupils bilaterally) Neck: non-tender, full range of motion Respiratory: chest non-tender, lungs clear, normal breath sounds, no respiratory distress, no accessory muscle use Cardiovascular: regular rate, rhythm, no edema, no gallop, no murmur Gastrointestinal: normal bowel sounds, non tender, soft, no organomegaly Genital/Rectal: normal genital exam, other (No signs of infection) Extremities: no pedal edema Neurologic/Psychiatric: alert; No oriented x 3 (Oriented x2 to person and place, not oriented to time); aphasia, other (Extraocular motions intact. Patient has right-sided facial paralysis, able to raise eyebrows equally on both sides, able to shrug shoulders equally on both sides. Able to lift right arm against gravity, some weakness noted with resistance. Able to lift right leg against resistance. Able to lift left upper and lower extremity against resistance.) Skin: warm/dry Assessment/Plan Assessment/Plan Admission Dx Right-sided weakness Admission Status: Observation (1) Right sided weakness Status: Acute Assessment & Plan: Worsening right-sided weakness. Unclear cause at this time. May be secondary to hypoglycemia versus infection versus stroke versus me dication induced. Unlikely to be infection as normal vital signs, on normal WBC, no signs of infection on chest x-ray or exam. UA was negative CT head and CTA head and neck negative for any acute findings ED discussed with [facility] neurology who recommended doing MRI, will obtain tomorrow Continue aspirin and home Eliquis Obtaining UDS to rule out other causes May also be secondary to hypoglycemia, will continue to replete as right-sided deficits did appear to improve with repletion of glucose (2) History of stroke Status: Chronic Assessment & Plan: Patient has expressive aphasia and baseline right-sided residual deficits We will reach out to shelter tomorrow to get a better understanding of patient's baseline and obtain more history We will also reach out to sister Anabela to understand baseline Continue PT/OT/speech Continue home atorvastatin and blood thinners (3) ICD (implantable cardioverter-defibrillator) in place Status: Acute Assessment & Plan: Patient states ICD in place secondary to atrial fibrillation No need for telemetry at this time as EKG in the ED was normal sinus Normal vital signs and patient denying chest pain (4) Hypoglycemia Status: Acute Assessment & Plan: Hypoglycemia protocol in place May be contributing to patient's worsening deficits (5) Expressive aphasia Status: Chronic Assessment & Plan: Unclear if at baseline Continue speech therapy (6) Seizure Status: Chronic Assessment & Plan: We will reach out to shelter to rule out seizure as a cause for patient's worsening weakness Continue home [facility] Clinical Quality Measures Stroke: Symptoms onset unknown: No HILL YANG MD 12/25/22 1332: Home Medications Allergies Coded Allergies: No Known Drug Allergies (Unverified , 01/08/21) Supervisory-Addendum Brief Supervisory Addendum I personally performed the H&P non 12/25 however resident A/P was discussed in real time, discussed case with resident and concur with resident documentation of history, physical exam, assessment and treatment plan unless otherwise noted. A/P Right sided Weakness Hypoglycemia HTN H/o CVA Expressive Aphasia Sz d/o NADINE FRANCO MD Dec 24, 2022 21:39 HILL YANG MD Dec 25, 2022 13:32
[2022-12-24] MEDS ORDERED: ACETAMINOPHEN 500 MG TABLET PO PRN (22:00)
[2022-12-24] MEDS ORDERED: LACTULOSE SYRUP 10GM/15ML 30ML UDC PO PRN (22:00)
[2022-12-24 22:25] VITALS: BP 151/93
[2022-12-24 23:25] VITALS: BP 151/75
[2022-12-25 02:15] LABS: AMPHETAMINE SCREEN, URINE NEGATIVE (NEGATIVE); BARBITURATE SCREEN URINE NEGATIVE (NEGATIVE); BENZODIAZEPINES SCREEN URINE NEGATIVE (NEGATIVE); CANNABINOID SCREEN, URINE NEGATIVE (NEGATIVE); COCAINE SCREEN URINE NEGATIVE (NEGATIVE); OPIATE SCREEN URINE NEGATIVE (NEGATIVE); OXYCODONE STAT POSITIVE (NEGATIVE)
[2022-12-25 02:16] LABS: METHADONE STAT NEGATIVE (NEGATIVE); PROPOXYPHENE STAT NEGATIVE (NEGATIVE); TRICYCLIC ANTIDEPRESSANTS SCRE NEGATIVE (NEGATIVE)
[2022-12-25 03:10] VITALS: BP 142/80
[2022-12-25 05:41] LABS: BASOPHILS % (AUTO) 1 % (0-10); EOSINOPHILS # (AUTO) 0.3 10^3/uL (0.0-0.3); EOSINOPHILS % (AUTO) 4 % (0-10); HEMATOCRIT 43 % (40-54); LYMPHOCYTES # (AUTO) 1.8 10^3/uL (1.0-4.0); LYMPHOCYTES % (AUTO) 26 % (12-44); MEAN CORPUSCULAR HEMOGLOBIN 30 pg (25-34); MEAN CORPUSCULAR HGB CONC 33 g/dL (32-36); MEAN CORPUSCULAR VOLUME 92 fL (80-99); MEAN PLATELET VOLUME 9.9 fL (9.0-12.2); MONOCYTES # (AUTO) 0.9 10^3/uL (0.0-1.0); MONOCYTES % (AUTO) 13 % (0-12); NEUTROPHILS % (AUTO) 56 % (42-75); PLATELET COUNT 182 10^3/uL (130-400)
[2022-12-25 05:57] LABS: ALBUMIN 3.9 GM/DL (3.2-4.5); BILIRUBIN,TOTAL 0.6 MG/DL (0.1-1.0); CALCIUM 9.3 MG/DL (8.5-10.1); CREATININE SERUM 1.07 MG/DL (0.60-1.30); TOTAL PROTEIN 6.6 GM/DL (6.4-8.2)
[2022-12-25] MEDS ORDERED: PANTOPRAZOLE 40 MG (PROTONIX) TAB PO SCH (07:00)
[2022-12-25 07:18] VITALS: BP 167/85
[2022-12-25] MEDS ORDERED: BISOPROLOL 5 MG TAB (ZEBETA) PO SCH (09:00)
[2022-12-25] MEDS ORDERED: LevETIRAcetam 500 MG TABLET PO SCH (09:00)
[2022-12-25] MEDS ORDERED: DICLOFENAC 1% GEL 50 GM TUBE TOP SCH (09:00)
[2022-12-25] MEDS ORDERED: APIXABAN 5 MG TABLET PO SCH (09:00)
[2022-12-25] MEDS ORDERED: ASPIRIN 81 MG CHEWABLE TABLET PO SCH (09:00)
--- NOTE | 2022-12-25 09:07 | Physical Therapy Evaluation ---
PT Evaluation-General Medical Diagnosis Admission Date Dec 24, 2022 at 22:03 Medical Diagnosis: right sided weakness Onset Date: Dec 24, 2022 Therapy Diagnosis Therapy Diagnosis: debility Height/Weight Height (Feet): 5 Height (Inches): 10.00 Weight (Pounds): 258 Weight (Ounces): 15.0 Precautions Precautions/Isolations: Standard Precautions Referral Physician: Napoleon Reason for Referral: Evaluation/Treatment Medical History Pertinent Medical History: CVA, HTN Current History ER secondary to increased right side weakness and hypoglycemia (symptoms resolved after hypoglycemia was resolved per ER report) Reviewed History: Yes Social History Home: Assisted Living Prior Prior Level of Function SCALE: Activities may be completed with or without assistive devices. 3-Ytyhyhpion-pnexkcq completes the activity by him/herself with no assistance from a helper. 5-Set-up or Clean-up Assistance-helper sets up or cleans up; patient completes activity. [place] assists only prior to or following the activity. 4-Supervision or Touching Assistance-helper provides verbal cues and/or touching/steadying and/or contact guard assistance as patient completes activity. Assistance may be provided throughout the activity or intermittently. 3-Partial/Moderate Assistance-helper does LESS THAN HALF the effort. [place] lift s, holds or supports trunk or limbs, but provides less than half the effort. 2-Substantial/Maximal Assistance-helper does MORE THAN HALF the effort. [place] lifts or holds trunk or limbs and provides more than half the effort. 2-Bgqagrcdw-xgskwj does ALL the effort. Patient does none of the effort to complete the activity. Or, the assistance of 2 or more helpers is required for the patient to complete the activity. If activity was not attempted, code reason: 7-Patient Refused. 9-Not Applicable-not attempted and the patient did not perform the activity before the current illness, exacerbation or injury. 10-Not Attempted due to Environmental Limitations-(lack of equipment, weather restraints, etc.). 88-Not Attempted due to Medical Conditions or Safety Concerns. Bed Mobility: 5 Transfers (B,C,W/C): 5 Gait: 4 Indoor Mobility (Ambulation): Needed Some Help Prior Devices Use: Walker (hemiwalker) SBA to modified independent PLOF PT Evaluation-Current Subjective Patient agrees to PT. Objective Patient Orientation: Person, Time, Situation ROM/Strength ROM Lower Extremities bilateral LE WFL Strength Lower Extremities left LE 4/5 grossly/right LE 3/5 grossly Integumentary/Posture Bowel Incontinence: No Bladder Incontinence: No Posture WFL Neuromuscular (Tone, Coordination, Reflexes) right hemiparesis prior/left side grossly intact Sensory Vision: Functional Hearing: Functional Transfers Sit to Lying (QC): 5 Lying to Sitting/Side of Bed(Q: 5 Sit to Stand (QC): 4 Gait Mode of Locomotion: Walk Anticipated Mode of Locomotion: Walk Walk 10 feet (QC): 4 Walk 50 ft with 2 Turns(QC): 4 Walk 150 ft (QC): 4 Distance: 175' Gait Assistive Device: Walker Jose Comments/Gait Description step to with SBA for safety Balance Sitting Static: Normal Sitting Dynamic: Normal Standing Static: Good Standing Dynamic: Good Assessment/Needs Patient appears to be at PLOF with gross motor skills per report. Patient will be seen short term by skilled PT to ensure safe return to [place] at maximum LOF. Rehab Potential: Fair PT Short Term Goals Short Term Goals Time Frame: Dec 28, 2022 Roll Left & Right: 5 Sit to lyin Lying to sitting on side of be: 5 Sit to stand: 5 Chair/ptr-qp-jcggb transfer: 5 Toilet transfer: 5 Walk 10 feet: 5 Walk 50 feet with two turns: 5 Walk 150 feet: 5 PT Plan Treatment/Plan Treatment Plan: Continue Plan of Care Treatment Plan: Education, Functional Activity [place], Functional Strength, Gait, Safety, Therapeutic Exercise, Transfers Treatment Duration: Dec 28, 2022 Frequency: 4 times per week Estimated Hrs Per Day: .25 hour per day Time Time In: 847 Time Out: 900 DATE: Dec 25, 2022 Total Billed Treatment Time: 13 Total Billed Treatment 1 visit [facility] 13 min ULCINDA SANABRIA PT Dec 25, 2022 09:07
[2022-12-25] MEDS ORDERED: GBPN600T PO (09:27)
[2022-12-25] MEDS ORDERED: LISI40TA9 PO (09:27)
[2022-12-25] MEDS: DICLOFENAC 1% GEL 100 GM TUBE TOP SCH ×2 (10:51→14:43)
[2022-12-25 11:06] VITALS: BP 186/89
--- NOTE | 2022-12-25 11:25 | Occupational Therapy Eval ---
OT Evaluation-General/PLF Medical Diagnosis Admission Date Dec 24, 2022 at 22:03 Medical Diagnosis: right sided weakness Onset Date: Dec 24, 2022 Therapy Diagnosis Therapy Diagnosis: weakness Height/Weight Height (Feet): 5 Height (Inches): 10.00 Weight (Pounds): 258 Weight (Ounces): 15.0 Precautions Precautions/Isolations: Standard Precautions Weight Bear Status Weight Bearing Restriction: Weight Bearing/Tolerated Referral Physician: Napoleon Referral Reason: Evaluation/Treatment Medical History Pertinent Medical History: CVA, HTN Current History ER secondary to increased right side weakness and hypoglycemia (symptoms resolved after hypoglycemia was resolved per ER report) Reviewed History: Yes Social History Home: Assisted Living ([facility]) Current Living Status: Alone Entry Into Home: Level Entry ADL-Prior Level of Function SCALE: Activities may be completed with or without assistive devices. 9-Mgmdhlmjbl-gfbkgkt completes the activity by him/herself with no assistance from a helper. 5-Set-up or Clean-up Assistance-helper sets up or cleans up; patient completes activity. [place] assists only prior to or following the activity. 4-Supervision or Touching Assistance-helper provides verbal cues and/or touching/steadying and/or contact guard assistance as patient completes activity. Assistance may be provided throughout the activity or intermittently. 3-Partial/Moderate Assistance-helper does LESS THAN HALF the effort. [place] lifts, holds or supports trunk or limbs, but provides less than half the effort. 2-Substantial/Maximal Assistance-helper does MORE THAN HALF the effort. [place] lifts or holds trunk or limbs and provides more than half the effort. 5-Cigbxhymr-unnqok does ALL the effort. Patient does none of the effort to comp lete the activity. Or, the assistance of 2 or more helpers is required for the patient to complete the activity. If activity was not attempted, code reason: 7-Patient Refused. 9-Not Applicable-not attempted and the patient did not perform the activity before the current illness, exacerbation or injury. 10-Not Attempted due to Environmental Limitations-(lack of equipment, weather restraints, etc.). 88-Not Attempted due to Medical Conditions or Safety Concerns. Self Care: Needed Some Help Functional Cognition: Needed Some Help DME/Equipment: Grab Bars, Shower DME/Equipment Comments britni walker Drive Self: No OT Current Status Subjective Agreeable to OT, Pain Numeric Pain Scale: 0-No Pain Mental Status/Objective Patient Orientation: Person, Place Patient is known to this therapist, patient is at baseline w/ ADL, ADL transfer and Mobility Current Upper Extremity ROM right hemniparesis Upper Extremity Coordination impaired however at baseline Upper Extremity Strength Left -4/5, right -3/5 ADL-Treatment Eating (QC): 5 Oral Hygiene (QC): 4 Shower/Bathe Self (QC): 7 Upper Body Dressing (QC): 4 Lower Body Dressing (QC): 3 On/Off Footwear (QC): 4 Toileting Hygiene (QC): 4 Education OT Patient Education: Correct positioning, Modified ADL techniques, Progress toward Goal/Update tx plan, Purpose of tx/functional activities, Reviewed precautions, Rehab process, Safety issues, Transfer techniques, Use of adapted equipment Teaching Recipient: Patient Teaching Methods: Demonstration, Discussion Response to Teaching: Verbalize Understanding OT Reversal Print Inspector Goals Reversal Print Inspector Goals 1=Demonstrate adherence to instructed precautions during ADL tasks. 2=Patient will verbalize/demonstrate understanding of assistive devices/modifications for ADL. 3=Patient will improve strength/tolerance for activity to enable patient to per form ADL's. OT Education/Plan Problem List/Assessment Assessment: Impaired Self-Care Skills, Restricted Funct UE ROM Discharge Recommendations Plan/Recommendations: Discontinue OT (patient at baseline) Treatment Plan/Plan of Care Patient would benefit from OT for education, treatment and training to promote independence in ADL's, mobility, safety and/or upper extremity function for ADL's. Plan of Care: OTHER (ACUTE EVAL ONLY, RETURN TO [facility]) Comment all needs met Treatment Duration: Dec 25, 2022 Frequency: 1 time per week Estimated Hrs Per Day: .25 hour per day Agreement: Yes Rehab Potential: Fair Time Start Time: 10:00 Stop Time: 10:15 DATE: Dec 25, 2022 Total Time Billed (hr/min): 15 Billed Treatment Time EVL 15 CARLOS ADAMS OT Dec 25, 2022 11:25
--- NOTE | 2022-12-25 12:38 | Physical Therapy Progress Note ---
Therapy Progress Note Speech orders acknowledged. Nursing notified no speech therapy services available for the next 5 days. This is a patient known to speech therapy services with a chronic speech condition. As this is not a high risk condition patient's physician can issue follow up orders for resumed outpatient speech therapy. If patient is still in the acute setting 12/31 speech services will be rendered. YELENA TO PT Dec 25, 2022 12:38
[2022-12-25] MEDS ORDERED: lisINopril 20 MG (PRINIVIL) TABLET PO NR (13:00)
[2022-12-25] MEDS ORDERED: AMLO-250 PO (13:23)
--- NOTE | 2022-12-25 13:24 | Discharge Summary ---
Discharge [facility] Reconcile Patient Problems Problems Reviewed?: Yes Discharge Medications New, Converted or Re-Newed RX: Transmitted to Pharmacy New Medications: Amlodipine Besylate (Amlodipine Besylate) 5 Mg Tablet 5 MG PO DAILY, #30 TAB Continued Medications: Acetaminophen (Tylenol Extra Strength) 500 Mg Tablet 1000 MG PO TID PRN for PAIN-MILD (1-4), TAB Apixaban (Eliquis) 5 Mg Tablet 5 MG PO BID, TAB Aspirin (Aspirin) 81 Mg Tab.chew 81 MG PO DAILY, TAB Atorvastatin Calcium (Atorvastatin Calcium) 40 Mg Tablet 40 MG PO HS, TAB Bisacodyl (Bisacodyl) 10 Mg Supp.rect 10 MG RC Q48H PRN for CONSTIPATION-3RD LINE, SUPP.RECT Bisoprolol Fumarate (Bisoprolol Fumarate) 10 Mg Tablet 10 MG PO HS, TAB Give 1 tablet by mouth at bedtime related to ESSENTIAL (PRIMARY) HYPERTENSION. Hold and notify physician for SBP less than 100 and DBP less than 60. Duloxetine HCl (Duloxetine HCl) 60 Mg Capsule.dr 60 MG PO HS, CAP Gabapentin (Gabapentin) 600 Mg Tablet 600 MG PO TID, TAB Lactulose (Lactulose) 20 Gm/30 Ml Solution 15 ML PO BID PRN for CONSTIPATION-3RD LINE, EA Levetiracetam (Levetiracetam) 500 Mg Tablet 500 MG PO BID, #60 TAB 0 Refills Lisinopril (Lisinopril) 40 Mg Tablet 40 MG PO DAILY, TAB Methocarbamol (Methocarbamol) 750 Mg Tablet 1500 MG PO Q8H for Back Pain, #21 TAB 0 Refills Oxycodone HCl (Oxycodone HCl) 5 Mg Tablet 5 MG PO 0700,1300,1800,2300, TAB Pantoprazole Sodium (Protonix) 40 Mg Tablet.dr 40 MG PO DAILY, #14 TAB Sennosides/Docusate Sodium (Senna-S Tablet) 1 Each Tablet 1 EACH PO BID, TAB Tamsulosin HCl (Flomax) 0.4 Mg Cap 0.4 MG PO DAILY, #30 CAP Patient Instructions Goal/Follow Up Appt: [facility] [facility] Activity & Diet Discharge Diet: Cardiac Diet Activity as Tolerated: Yes HILL KLEIN MD Dec 25, 2022 13:24
[2022-12-25] MEDS ORDERED: amLODIPine 5 MG TABLET PO SCH (13:30)
--- NOTE | 2022-12-25 13:30 | Discharge Summary ---
Discharge Summary Instructions for Patient Via [facility], Assessment/Instructions R extremity weakness [facility] Dis[facility] Diet for Home: Cardiac Diet Hospital Course Date of Admission: Dec 24, 2022 at 22:03 Admission Diagnosis : [facility] Date of Discharge: 12/25/22 Discharge Diagnosis: Right Sided weakness Hypoglycemia HTN H/o CVA Expressive Aphasia S/z D/o Hospital Course: 62 yo M with uncomplicated course. Right sided weakness much improved with increasing blood sugars. Unable to obtain MRI due to ICD in place. Patient seems back to baseline and would like to go home. Will d/c home on HH with PT and speech. Labs and Pending Lab Test: Laboratory Tests 12/24/22 18:45: White Blood Count 8.3, Red Blood Count 4.25L, Hemoglobin 13.3, Hematocrit 40, Mean Corpuscular Volume 94, Mean Corpuscular Hemoglobin 31, Mean Corpuscular Hemoglobin Concent 33, Red Cell Distribution Width 14.0, Platelet Count 204, Mean Platelet Volume 10.2, Immature Granulocyte % (Auto) 0, Neutrophils (%) (Auto) 61, Lymphocytes (%) (Auto) 23, Monocytes (%) (Auto) 12, Eosinophils (%) (Auto) 3, Basophils (%) (Auto) 1, Neutrophils # (Auto) 5.0, Lymphocytes # (Auto) 1.9, Monocytes # (Auto) 1.0, Eosinophils # (Auto) 0.2, Basophils # (Auto) 0.0, Immature Granulocyte # (Auto) 0.0, Prothrombin Time 15.2H, INR Comment 1.2, Activated Partial Thromboplast Time 36H, Sodium Level 142, Potassium Level 4.2, Chloride Level 108H, Carbon Dioxide Level 23, Anion Gap 11, Blood Urea Nitrogen 12, Creatinine 1.19, Estimat Glomerular Filtration Rate 69, BUN/Creatinine Ratio 10, Glucose Level 61L, Calcium Level 9.2, Corrected Calcium 9.4, Total Bilirubin 0.4, Aspartate Amino Transf (AST/SGOT) 25, Alanine Aminotransferase (ALT/SGPT) 28, Alkaline Phosphatase 66, Troponin I < 0.028, Total Protein 6.8, Albumin 3.8 12/24/22 19:23: Glucometer 63L 12/24/22 20:22: Glucometer 53*L 12/24/22 20:38: Urine Color YELLOW, Urine Clarity CLEAR, Urine pH 6.5, Urine Specific [place] 1.005L, Urine Protein NEGATIVE, Urine Glucose (UA) 3+H, Urine Ketones NEGATIVE, Urine Nitrite NEGATIVE, Urine Bilirubin NEGATIVE, Urine Urobilinogen 0.2, Urine Leukocyte Esterase NEGATIVE, Urine RBC (Auto) NEGATIVE, Urine RBC NONE, Urine WBC NONE, Urine Squamous Epithelial Cells NONE, Urine Crystals NONE, Urine Bacteria NEGATIVE, Urine Casts NONE, Urine Mucus NEGATIVE, Urine Culture Indicated NO, Urine Opiates Screen NEGATIVE, Urine Oxycodone Screen POSITIVEH, Urine Methadone Screen NEGATIVE, Urine Propoxyphene Screen NEGATIVE, Urine Barbiturates Screen NEGATIVE, Ur Tricyclic Antidepressants Screen NEGATIVE, Urine Phencyclidine Screen NEGATIVE, Urine Amphetamines Screen NEGATIVE, Urine Methamphetamines Screen NEGATIVE, Urine Benzodiazepines Screen NEGATIVE, Urine Cocaine Screen NEGATIVE, Urine Cannabinoids Screen NEGATIVE 12/24/22 20:50: Glucometer 79 12/24/22 21:11: Glucometer 136H 12/24/22 22:53: Glucometer 78 12/25/22 02:11: Glucometer 61L 12/25/22 03:07: Glucometer 102 12/25/22 05:35: White Blood Count 7.0, Red Blood Count 4.60, Hemoglobin 14.0, Hematocrit 43, Mean Corpuscular Volume 92, Mean Corpuscular Hemoglobin 30, Mean Corpuscular Hemoglobin Concent 33, Red Cell Distribution Width 14.1, Platelet Count 182, Mean Platelet Volume 9.9, Immature Granulocyte % (Auto) 0, Neutrophils (%) (Auto) 56, Lymphocytes (%) (Auto) 26, Monocytes (%) (Auto) 13H, Eosinophils (%) (Auto) 4, Basophils (%) (Auto) 1, Neutrophils # (Auto) 4.0, Lymphocytes # (Auto) 1.8, Monocytes # (Auto) 0.9, Eosinophils # (Auto) 0.3, Basophils # (Auto) 0.0, Immature Granulocyte # (Auto) 0.0, Sodium Level 142, Potassium Level 4.0, Chloride Level 109H, Carbon Dioxide Level 24, Anion Gap 9, Blood Urea Nitrogen 10, Creatinine 1.07, Estimat Glomerular Filtration Rate 78, BUN/Creatinine Ratio 9, Glucose Level 95, Calcium Level 9.3, Corrected Calcium 9.4, Total Bilirubin 0.6, Aspartate Amino Transf (AST/SGOT) 24, Alanine Aminotransferase (ALT/SGPT) 26, Alkaline Phosphatase 76, Total Protein 6.6, Albumin 3.9, Triglycerides Level 200H, Cholesterol Level 110, LDL Cholesterol Direct 61, VLDL Cholesterol 40, HDL Cholesterol 22L 12/25/22 10:30: Glucometer 136H Home Meds Active Amlodipine Besylate 5 Mg Tablet 5 Mg PO DAILY Methocarbamol 750 Mg Tablet 1,500 Mg PO Q8H Protonix (Pantoprazole Sodium) 40 Mg Tablet.dr 40 Mg PO DAILY Flomax (Tamsulosin HCl) 0.4 Mg Cap 0.4 Mg PO DAILY Levetiracetam 500 Mg Tablet 500 Mg PO BID Reported Lisinopril 40 Mg Tablet 40 Mg PO DAILY Gabapentin 600 Mg Tablet 600 Mg PO TID Bisoprolol Fumarate 10 Mg Tablet 10 Mg PO HS Give 1 tablet by mouth at bedtime related to ESSENTIAL (PRIMARY) HYPERTENSION. Hold and notify physician for SBP less than 100 and DBP less than 60. Tylenol Extra Strength (Acetaminophen) 500 Mg Tablet 1,000 Mg PO TID PRN Lactulose 20 Gm/30 Ml Solution 15 Ml PO BID PRN Bisacodyl 10 Mg Supp.rect 10 Mg RC Q48H PRN Duloxetine HCl 60 Mg Capsule.dr 60 Mg PO HS Atorvastatin Calcium 40 Mg Tablet 40 Mg PO HS Oxycodone HCl 5 Mg Tablet 5 Mg PO 0700,1300,1800,2300 Senna-S Tablet (Sennosides/Docusate Sodium) 1 Each Tablet 1 Each PO BID Aspirin 81 Mg Tab.chew 81 Mg PO DAILY Eliquis (Apixaban) 5 Mg Tablet 5 Mg PO BID Patient Allergies: Coded Allergies: No Known Drug Allergies (Unverified , 01/08/21) Height (Feet): 5 Height (Inches): 10.00 Weight (Pounds): 258 Weight (Ounces): 15.0 New Medications: Amlodipine Besylate (Amlodipine Besylate) 5 Mg Tablet 5 MG PO DAILY, #30 TAB Continued Medications: Acetaminophen (Tylenol Extra Strength) 500 Mg Tablet 1000 MG PO TID PRN for PAIN-MILD (1-4), TAB Apixaban (Eliquis) 5 Mg Tablet 5 MG PO BID, TAB Aspirin (Aspirin) 81 Mg Tab.chew 81 MG PO DAILY, TAB Atorvastatin Calcium (Atorvastatin Calcium) 40 Mg Tablet 40 MG PO HS, TAB Bisacodyl (Bisacodyl) 10 Mg Supp.rect 10 MG RC Q48H PRN for CONSTIPATION-3RD LINE, SUPP.RECT Bisoprolol Fumarate (Bisoprolol Fumarate) 10 Mg Tablet 10 MG PO HS, TAB Give 1 tablet by mouth at bedtime related to ESSENTIAL (PRIMARY) HYPERTENSION. Hold and notify physician for SBP less than 100 and DBP less than 60. Duloxetine HCl (Duloxetine HCl) 60 Mg Capsule.dr 60 MG PO HS, CAP Gabapentin (Gabapentin) 600 Mg Tablet 600 MG PO TID, TAB Lactulose (Lactulose) 20 Gm/30 Ml Solution 15 ML PO BID PRN for CONSTIPATION-3RD LINE, EA Levetiracetam (Levetiracetam) 500 Mg Tablet 500 MG PO BID, #60 TAB 0 Refills Lisinopril (Lisinopril) 40 Mg Tablet 40 MG PO DAILY, TAB Methocarbamol (Methocarbamol) 750 Mg Tablet 1500 MG PO Q8H for Back Pain, #21 TAB 0 Refills Oxycodone HCl (Oxycodone HCl) 5 Mg Tablet 5 MG PO 0700,1300,1800,2300, TAB Pantoprazole Sodium (Protonix) 40 Mg Tablet.dr 40 MG PO DAILY, #14 TAB Sennosides/Docusate Sodium (Senna-S Tablet) 1 Each Tablet 1 EACH PO BID, TAB Tamsulosin HCl (Flomax) 0.4 Mg Cap 0.4 MG PO DAILY, #30 CAP Home Health Need/Face to Face Date of Face to Face: Dec 25, 2022 Clinical Findings: Generalized weakness and fatigue, Instability, Unsteady gait I have seen Pt [id number]: Yes Discharged To: Home Diagnosis/Conditions: See Above Patient is Homebound due to: Guera fall risk due to instabilty, Muscle weakness Homebound Status Due to the above stated illness, injury or surgical procedure (medical condition or diagnosis) and associated clinical findings, the patient is homebound because of his/her inability to leave home except with aid of a supportive device and/or person AND leaving the home requires a considerable and taxing effort or is medically contraindicated. Pt req the following assistanc: [facility] Nursing Orders Home Health Services Order: Nursing Services, Physical Therapy-Evaluate & Treat, Speech Language-Evaluate & Treat Home Health Infusion Therapy Line Start Date: Dec 24, 2022 Therapy Orders Therapy Orders: PT to assess for OT Therapy Specific Orders: Eval & treat aphasia, Gait training, Increase strength/endurance, Restore ROM Certify Stmt I certify that this patient is under my care and that I, a nurse practitioner or a physician; a assistant boiler operator working with me, had a face to face encounter that - meets the physician face to face encounter requirements with this patient as dated. Discharge Physical Exam General: Alert, Oriented X3, No Acute Distress Lungs: Clear to Auscultation, Normal Air Movement Heart: Regular Rate, No Murmurs Abdomen: Normal Bowel Sounds, Soft, No Tenderness, No Masses Extremities: No Tenderness/Swelling, Other (1+ edema bilaterally) HILL KLEIN MD Dec 25, 2022 13:30
[2022-12-25] MEDS ORDERED: oxyCODONE IMMEDIATE RELEASE 5 MG TABLET ONE (13:36)
[2022-12-25] MEDS ORDERED: oxyCODONE IMMEDIATE RELEASE 5 MG TABLET PO ONE (13:45)
[2022-12-25 14:00] VITALS: BP 159/92
[2022-12-25 14:54] VITALS: BP 159/92
[2022-12-25] MEDS ORDERED: DULoxetine 30 MG CAPSULE PO SCH (21:00)
[2022-12-26] MEDS ORDERED: TAMSULOSIN 0.4 MG (FLOMAX) CAP PO SCH (09:00)
[2022-12-26] MEDS ORDERED: lisINopril 40 MG (PRINIVIL) TABLET PO SCH (09:00)
== END 2022-12-25 14:55 | disposition home health service (06) ==
LOC: EDUNIT# 18:31 → ER 18:32 → INTOOBSV 22:03 → 4TH 22:03 → OBSVTOIN 22:03
PROVIDERS: ADMIT Family Medicine; ATTEND Family Medicine
DX: I69.351 Hemiplegia and hemiparesis following cerebral infarction affecting right dominant side (principal); I69.320 Aphasia following cerebral infarction; R29.708 NIHSS score 8; E16.2 Hypoglycemia, unspecified; G40.909 Epilepsy, unspecified, not intractable, without status epilepticus; I10 Essential (primary) hypertension; G47.00 Insomnia, unspecified; Z95.810 Presence of automatic (implantable) cardiac defibrillator; Z79.899 Other long term (current) drug therapy; Z79.01 Long term (current) use of anticoagulants; Z79.82 Long term (current) use of aspirin; Z79.891 Long term (current) use of opiate analgesic; Z79.52 Long term (current) use of systemic steroids
CPT/HCPCS: 70450; 70496; 70498; 71045; 80053 ×2; 80061; 80306; 81000; 82947 ×2; 84484; 85025 ×2; 85610; 85730; 93005; 93041; 96374; 96375; 97162; 97165; 99284; G0378; 36415